=== PATIENT | female | born 1945 | race Caucasian/White ===

== ENCOUNTER 2016-08-09 15:28 | Inpatient (IN) | payer OTHER ==
--- NOTE | 2016-08-09 16:40 | PDOC ---
History of Present Illness - General History Source: Patient, Old Records Exam Limitations: No Limitations <Adela Kelley - Last Filed: 08/09/16 19:16> - History of Present Illness Initial Comments: 08/09/16 16:50 The patient is a 70 yo F with significant past medical history of hypertension, hyperlipidemia, diabetes, left breast CA who presents to the emergency department with cough and headache for approximately 1 week. The patient reports a non-productive cough. The patient reports associated chest pain when she coughs, however she has no pain at rest. The patient denies any nasal congestion. The patient reports a headache for the last week. The headache is constant in nature. She denies any associated dizziness or blurry vision. The patient denies any fevers or chills. The patient denies sick contacts. Mishel- daughter [phone] <Sujata Jones - Last Filed: 08/09/16 19:18> - General Chief Complaint: Chest Pain Stated Complaint: CHEST PAIN, HEADACHE Time Seen by Provider: 08/09/16 16:04 Past History - Past Medical History Cancer: Yes (LEFT BREAST) Diabetes: Yes HTN: Yes Hypercholesterolemia: Yes Suicide Attempt (Hx): No - Surgical History Abdominal Surgery: No - Immunization History Immunization Up to Date: Yes - Psycho/Social/Smoking Cessation Hx Anxiety: No Suicidal Ideation: No Smoking Status: No Smoking History: Never smoked Have you smoked in the past 12 months: No Number of Cigarettes Smoked Daily: 0 Hx Alcohol Use: No Drug/Substance Use Hx: No Substance Use Type: None Hx Substance Use Treatment: No <Adela Kelley - Last Filed: 08/09/16 19:16> <Sujata Jones - Last Filed: 08/09/16 19:18> - Past Medical History Allergies/Adverse Reactions: Allergies Allergy/AdvReac Type Severity Reaction Status Date / Time No Known Allergies Allergy Verified 08/09/16 15:36 Home Medications: Ambulatory Orders Gabapentin 300 mg PO BID 05/03/15 Fluticasone/Salmeterol [Advair 250-50 Diskus] 1 each IH BID 09/03/15 Glipizide/Metformin HCl [Metaglip 2.5-250 mg Tablet] 1 each PO BID 09/03/15 Memantine HCl [Namenda -] 7 mg PO DAILY 09/03/15 Simvastatin 40 mg PO DAILY 09/03/15 Acetaminophen [Tylenol .Regular Strength -] 650 mg PO Q6H PRN #0 tablet Albuterol 2.5/Ipratropium 0.5 [Duoneb -] 1 amp NEB Q4H PRN #0 amp 10/31/15 Albuterol Sulfate Inhaler - [Ventolin Hfa Inhaler -] 1 - 2 inh PO Q4H #1 inhaler 10/31/15 Budesonide/Formeterol Fumarate [SYMBICORT 160/4.5mcg -] 1 puff IH BID #1 inhaler 10/31/15 Prednisone [Deltasone -] 10 mg PO ASDIR #30 tablet 10/31/15 Ranitidine [Zantac -] 150 mg PO BID #60 tablet 10/31/15 Unobtainable 08/09/16 Review of Systems - Review of Systems Able to Perform ROS?: Yes Comments:: 08/09/16 16:50 GENERAL/CONSTITUTIONAL: No fever or chills. No weakness. HEAD, EYES, EARS, NOSE AND THROAT: No change in vision. No ear pain or discharge. No sore throat. CARDIOVASCULAR: +Chest pain. No shortness of breath. RESPIRATORY: +Cough. No wheezing, or hemoptysis. GASTROINTESTINAL: No nausea, vomiting, diarrhea or constipation. GENITOURINARY: No dysuria, frequency, or change in urination. MUSCULOSKELETAL: No joint or muscle swelling or pain. No neck or back pain. SKIN: No rash NEUROLOGIC: +Headache. No vertigo, loss of consciousness, or change in strength/ sensation. ENDOCRINE: No increased thirst. No abnormal weight change. HEMATOLOGIC/LYMPHATIC: No anemia, easy bleeding, or history of blood clots. ALLERGIC/IMMUNOLOGIC: No hives or skin allergy. <Sujata Jones - Last Filed: 08/09/16 19:18> *Physical Exam - Vital Signs Last Vital Signs Temp Pulse Resp BP Pulse Ox 98.5 F 81 20 130/70 93 L 08/09/16 15:30 08/09/16 15:30 08/09/16 15:30 08/09/16 15:30 08/09/16 15:30 <Adela Kelley - Last Filed: 08/09/16 19:16> - Vital Signs Last Vital Signs Temp Pulse Resp BP Pulse Ox 98.5 F 81 20 130/70 93 L 08/09/16 15:30 08/09/16 15:30 08/09/16 15:30 08/09/16 15:30 08/09/16 15:30 - Physical Exam Comments: 08/09/16 16:51 GENERAL: Awake, alert, and fully oriented, in no acute distress HEAD: No signs of trauma EYES: PERRLA, EOMI, sclera anicteric, conjunctiva clear ENT: Auricles normal inspection, hearing grossly normal, nares patent, oropharynx clear without exudates. Moist mucosa NECK: Normal ROM, supple, no lymphadenopathy, JVD, or masses LUNGS: +Bilateral crackles, left worse than right. HEART: Regular rate and rhythm, normal S1 and S2, no murmurs, rubs or gallops ABDOMEN: Soft, nontender, normoactive bowel sounds. No guarding, no rebound. No masses EXTREMITIES: Normal range of motion, no edema. No clubbing or cyanosis. No cords, erythema, or tenderness NEUROLOGICAL: Cranial nerves II through XII grossly intact. Normal speech, normal gait SKIN: Warm, Dry, normal turgor, no rashes or lesions noted. <Sujata Jones - Last Filed: 08/09/16 19:18> ED Treatment Course - LABORATORY CBC & Chemistry Diagram: 08/09/16 17:20 08/09/16 17:20 <Adela Kelley - Last Filed: 08/09/16 19:16> - LABORATORY CBC & Chemistry Diagram: 08/09/16 17:20 08/09/16 17:20 <Sujata Jones - Last Filed: 08/09/16 19:18> Medical Decision Making - Medical Decision Making 08/09/16 16:42 70-year-old female with history of diabetes, hypertension who presents the emergency Department with complaints of 1 week history of nonproductive cough and pleuritic chest pain. [facility] diagnosis includes but is not limited to: Influenza, pneumonia, URI, CHF, ACS, anemia, electrolyte abnormality, toxic/ metabolic derangement. Plan: 1. Labs 2. Influenza PCR 3. Chest x-ray 4. EKG 5. Observe and reevaluate <Adela Kelley - Last Filed: 08/09/16 19:16> *DC/Admit/Observation/Transfer - Discharge Dispostion Admit: Yes - Attestations Physician Attestion: 08/09/16 16:44 I, Dr. Adela Kelley, attest that the scribes documentation that appears above has been prepared under my direction and personally reviewed by me in its entirety. I confirmed that the note above accurately reflects all work, treatment, procedures, and medical decision-making performed by me. <Adela Kelley - Last Filed: 08/09/16 19:16> - Attestations Scribe Attestion: 08/09/16 16:51 Documentation prepared by Sujata Jones, acting as medical interpreter for Adela Kelley MD. <Sujata Jones - Last Filed: 08/09/16 19:18> Diagnosis at time of Disposition: Cough, Influenza A, Pneumonia - Discharge Dispostion Condition at time of disposition: Stable - Referrals Referrals: Ronit Erazo MD [Primary Care Provider] -
[2016-08-09 17:30] LABS: BASOPHIL 1.1 % (0-2.0); MCH 29.6 pg (25.7-33.7); MCHC 33.9 g/dl (32.0-36.0); MEAN CELL VOLUME 87.4 fl (80-96); NEUTROPHILS 63.1 % (42.8-82.8); PLATELET COUNT 201 K/MM3 (134-434); RDW 13.6 % (11.6-15.6); WHITE BLOOD COUNT 6.9 K/mm3 (4.0-10.0)
[2016-08-09 17:48] LABS: URINE APPEARANCE SLCLOUDY; URINE BILIRUBIN NEGATIVE (NEGATIVE); URINE COLOR YELLOW; URINE GLUCOSE (UA) NEGATIVE (NEGATIVE); URINE KETONE NEGATIVE (NEGATIVE); URINE LEUK ESTERASE NEGATIVE (NEGATIVE); URINE NITRITE NEGATIVE (NEGATIVE); URINE PROTEIN NEGATIVE (NEGATIVE); URINE UROBILINOGEN 4.0 E.U/dl E.U./dl (0.2-1.0)
[2016-08-09 17:58] LABS: URINE BLOOD 1+ (NEGATIVE)
[2016-08-09 18:07] LABS: URINE BACTERIA RARE /hpf (NONE SEEN); URINE MUCUS RARE; URINE RBC 2 /hpf (0-3); URINE WBC 1 /hpf (3-5)
[2016-08-09 18:23] LABS: CALCIUM 8.7 mg/dL (8.5-10.1); CREATININE 0.6 mg/dL (0.55-1.02)
[2016-08-09 18:25] LABS: TROPONIN I 0.07 ng/ml (0.00-0.05)
[2016-08-09 18:26] LABS: MAGNESIUM 2.1 mg/dL (1.8-2.4)
[2016-08-09] MEDS ORDERED: LEVOFLOXACIN 750 MG IVPB 150 ML IVPB ONE (18:30)
[2016-08-09] MEDS ORDERED: OSELTAMIVIR PHOSPHATE 75 MG CAPSULE PO ONE (18:54)
[2016-08-09] MEDS ORDERED: OSELTAMIVIR PHOSPHATE 75 MG CAPSULE ONE (19:31)
[2016-08-09] MEDS ORDERED: ACETAMINOPHEN 325 MG TABLET (FP) PO PRN (22:29)
[2016-08-10] MEDS: ALBUTEROL SO4 2.5/IPRATROPIUM 0.5 INH SOL 3 ML VIAL.NEB. NEB PRN (09:00)
[2016-08-10] MEDS: GABAPENTIN 300 MG CAPSULE (FP) PO SCH ×2 (09:22→21:21)
[2016-08-10] MEDS: OSELTAMIVIR PHOSPHATE 75 MG CAPSULE PO SCH ×2 (09:23→21:21)
[2016-08-10] MEDS: BUDESONIDE/FORMETEROL FUMARATE 160/4.5 mcg INHALER IH SCH ×2 (09:23→21:22)
[2016-08-10] MEDS ORDERED: ALBUTEROL SO4 2.5/IPRATROPIUM 0.5 INH SOL 3 ML VIAL.NEB. NEB ONE (09:24)
[2016-08-10] MEDS ORDERED: METFORMIN HCL PO SCH (10:00)
[2016-08-10] MEDS ORDERED: GLIPIZIDE PO SCH (10:00)
[2016-08-10] MEDS ORDERED: [UNRECOGNIZED DRUG - OTHER] PO SCH (10:00)
[2016-08-10] MEDS ORDERED: MEMANTINE HCL 5 MG TABLET (UD) PO SCH (10:00)
--- NOTE | 2016-08-10 10:02 | HP ---
Admitting History and Physical - Primary Care Physician PCP: Ronit Erazo - Admission Chief Complaint: cough, headache, shortness of breath History of Present Illness: ER history - History of Present Illness Initial Comments: 08/09/16 16:50 The patient is a 70 yo F with significant past medical history of hypertension, hyperlipidemia, diabetes, left breast CA who presents to the emergency department with cough and headache for approximately 1 week. The patient reports a non-productive cough. The patient reports associated chest pain when she coughs, however she has no pain at rest. The patient denies any nasal congestion. The patient reports a headache for the last week. The headache is constant in nature. She denies any associated dizziness or blurry vision. The patient denies any fevers or chills. The patient denies sick contacts. 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 No: Current Radiation Therapy Endocrine: Yes: Diabetes Mellitus, Hypothyroidism - Smoking History Smoking history: Never smoked Have you smoked in the past 12 months: No Aproximately how many cigarettes per day: 0 - Alcohol/Substance Use Hx Alcohol Use: No Home Medications - Allergies Allergies/Adverse Reactions: Allergies Allergy/AdvReac Type Severity Reaction Status Date / Time No Known Allergies Allergy Verified 08/09/16 15:36 - Home Medications Home Medications: Ambulatory Orders Glipizide/Metformin HCl [Metaglip 2.5-250 mg Tablet] 1 each PO BID 09/03/15 Memantine HCl [Namenda -] 7 mg PO DAILY 09/03/15 Acetaminophen [Tylenol .Regular Strength -] 650 mg PO Q6H PRN #0 tablet Amitriptyline HCl [Elavil -] 25 mg PO DAILY 08/10/16 Levothyroxine Sodium [Levo-T] 100 mcg PO DAILY 08/10/16 Memantine HCl [Namenda Xr] 14 mg PO DAILY 08/10/16 Review of Systems - Review of Systems Constitutional: reports: Fever. denies: Chills Cardiovascular: reports: Shortness of Breath. denies: Chest Pain Respiratory: reports: Cough Physical Examination Vital Signs: Vital Signs Temperature 99 F 08/10/16 07:44 Pulse Rate 80 08/10/16 07:44 Respiratory Rate 18 08/10/16 07:44 Blood Pressure 129/57 08/10/16 07:44 O2 Sat by Pulse Oximetry (%) 95 08/10/16 07:47 Constitutional: Yes: No Distress, Calm Cardiovascular: Yes: Regular Rate and Rhythm Respiratory: Yes: Rhonchi Gastrointestinal: Yes: Normal Bowel Sounds, Soft, Abdomen, Obese. No: Distention, Tenderness Edema: No Neurological: Yes: Alert, Oriented Psychiatric: Yes: Alert, Oriented Labs: Laboratory Last Values WBC 5.4 K/mm3 (4.0-10.0) 08/10/16 10:05 RBC 4.79 M/mm3 (3.60-5.2) 08/10/16 10:05 Hgb 14.1 GM/dL (10.7-15.3) 08/10/16 10:05 Hct 42.1 % (32.4-45.2) 08/10/16 10:05 MCV 87.9 fl (80-96) 08/10/16 10:05 MCHC 33.5 g/dl (32.0-36.0) 08/10/16 10:05 RDW 13.2 % (11.6-15.6) 08/10/16 10:05 Plt Count 183 K/MM3 (134-434) 08/10/16 10:05 MPV 8.7 fl (7.5-11.1) 08/10/16 10:05 Neutrophils % 56.0 % (42.8-82.8) 08/10/16 10:05 Lymphocytes % 22.2 % (8-40) D 08/10/16 10:05 Monocytes % 11.4 % (3.8-10.2) H 08/10/16 10:05 Eosinophils % 9.4 % (0-4.5) H 08/10/16 10:05 Basophils % 1.0 % (0-2.0) 08/10/16 10:05 Sodium 136 mmol/L (136-145) 08/10/16 10:05 Potassium 3.7 mmol/L (3.5-5.1) 08/10/16 10:05 Chloride 100 mmol/L (98-107) 08/10/16 10:05 Carbon Dioxide 28 mmol/L (21-32) 08/10/16 10:05 Anion Gap 8 (8-16) 08/10/16 10:05 BUN 8 mg/dL (7-18) 08/10/16 10:05 Creatinine 0.6 mg/dL (0.55-1.02) 08/10/16 10:05 Creat Clearance w eGFR > 60 (>60) 08/10/16 10:05 POC Glucometer 164.89628 UNITS (()) 08/10/16 11:56 Random Glucose 186 mg/dL (74-106) H D 08/10/16 10:05 Calcium 8.5 mg/dL (8.5-10.1) 08/10/16 10:05 Phosphorus 4.0 mg/dL (2.5-4.9) 08/09/16 17:20 Magnesium 2.1 mg/dL (1.8-2.4) 08/09/16 17:20 Total Bilirubin 0.8 mg/dL (0.2-1.0) D 08/10/16 10:05 AST 21 U/L (15-37) 08/10/16 10:05 ALT 20 U/L (12-78) D 08/10/16 10:05 Alkaline Phosphatase 84 U/L (45-117) 08/10/16 10:05 Creatine Kinase 193 IU/L (26-192) H 08/10/16 10:05 CK-MB (CK-2) 1.681 ng/ml (0.5-3.6) 08/09/16 17:20 Troponin I 0.08 ng/ml (0.00-0.05) H 08/10/16 10:05 B-Natriuretic Peptide 71.09 pg/ml (5-125) 08/09/16 17:32 Total Protein 7.3 g/dl (6.4-8.2) 08/10/16 10:05 Albumin 3.3 g/dl (3.4-5.0) L 08/10/16 10:05 Urine Color Yellow 08/09/16 17:20 Urine Appearance Slcloudy 08/09/16 17:20 Urine pH 5.0 (5.0-8.0) D 08/09/16 17:20 Ur Specific Solomon 1.020 (1.001-1.035) 08/09/16 17:20 Urine Protein Negative (NEGATIVE) 08/09/16 17:20 Urine Glucose (UA) Negative (NEGATIVE) 08/09/16 17:20 Urine Ketones Negative (NEGATIVE) 08/09/16 17:20 Urine Blood 1+ (NEGATIVE) H 08/09/16 17:20 Urine Nitrite Negative (NEGATIVE) 08/09/16 17:20 Urine Bilirubin Negative (NEGATIVE) 08/09/16 17:20 Urine Urobilinogen 4.0 e.u/dl E.U./dl (0.2-1.0) H 08/09/16 17:20 Ur Leukocyte Esterase Negative (NEGATIVE) 08/09/16 17:20 Urine RBC 2 /hpf (0-3) 08/09/16 17:20 Urine WBC 1 /hpf (3-5) 08/09/16 17:20 Ur Epithelial Cells Moderate /hpf (FEW) 08/09/16 17:20 Urine Bacteria Rare /hpf (NONE SEEN) 08/09/16 17:20 Urine Mucus Rare 08/09/16 17:20 Imaging - Results Chest X-ray: Pending (mild congestion), Image Reviewed Problem List - Problems (1) Influenza A Code(s): J10.1 - FLU DUE TO OTH IDENT INFLUENZA VIRUS W OTH RESP MANIFEST (2) COPD exacerbation Code(s): J44.1 - CHRONIC OBSTRUCTIVE PULMONARY DISEASE W (ACUTE) EXACERBATION (3) Diabetes Code(s): E11.9 - TYPE 2 DIABETES MELLITUS WITHOUT COMPLICATIONS Qualifiers: Diabetes mellitus type: type 2 Diabetes mellitus complication status: with neurologic complications Diabetes mellitus complication detail: with unspecified neuropathy Qualified Code(s): E11.40 - Type 2 diabetes mellitus with diabetic neuropathy, unspecified; 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
[2016-08-10 10:17] LABS: EOSINOPHIL 9.4 % (0-4.5); MCH 29.5 pg (25.7-33.7); MCHC 33.5 g/dl (32.0-36.0); MEAN CELL VOLUME 87.9 fl (80-96); MEAN PLT VOLUME 8.7 fl (7.5-11.1); PLATELET COUNT 183 K/MM3 (134-434); RDW 13.2 % (11.6-15.6); WHITE BLOOD COUNT 5.4 K/mm3 (4.0-10.0)
[2016-08-10] MEDS: PANTOPRAZOLE 40 MG TABLET (FP) PO SCH (10:35)
[2016-08-10 10:43] LABS: ALBUMIN 3.3 g/dl (3.4-5.0); ALK PHOS 84 U/L (45-117); ANION GAP 8 (8-16); BILIRUBIN,TOTAL 0.8 mg/dL (0.2-1.0); CALCIUM 8.5 mg/dL (8.5-10.1); CO2 28 mmol/L (21-32); CREATININE 0.6 mg/dL (0.55-1.02); GLUCOSE,RANDOM 186 mg/dL (74-106); SGOT/AST 21 U/L (15-37); SGPT/ALT 20 U/L (12-78); TOT PROT 7.3 g/dl (6.4-8.2)
[2016-08-10 10:45] LABS: TROPONIN I 0.08 ng/ml (0.00-0.05)
[2016-08-10] MEDS: methylPREDNISolone NA SUCC 40 MG/1 ML VIAL IVPB SCH ×2 (11:50→17:54)
[2016-08-10] MEDS: INSULIN (NOVOLOG) ASPART 100 UNITS/ML 10ML VIAL SQ SCH ×2 (11:55→17:48)
[2016-08-10] MEDS ORDERED: INSULIN REGULAR HUMAN 100 UNITS/ML *VIAL ONE (12:00)
[2016-08-10] MEDS: LEVOTHYROXINE NA 100 MCG TABLET (FP) PO SCH (13:43)
[2016-08-10 14:21] VITALS: BMI 30.4
--- NOTE | 2016-08-10 16:55 | EKG ---
Test Reason : Blood Pressure : / mmHG Vent. Rate : 077 BPM Atrial Rate : 077 BPM P-R Int : 144 ms QRS Dur : 110 ms QT Int : 386 ms P-R-T Axes : 033 -71 091 degrees QTc Int : 436 ms NORMAL SINUS RHYTHM LEFT ANTERIOR FASCICULAR BLOCK POSSIBLE LATERAL INFARCT (CITED ON OR BEFORE 27-OCT-2015) ABNORMAL ECG WHEN COMPARED WITH ECG OF 28-OCT-2015 01:21, RIGHT BUNDLE BRANCH BLOCK IS NO LONGER PRESENT CRITERIA FOR SEPTAL INFARCT ARE NO LONGER PRESENT Confirmed by KARTIK DUENAS MD ([id number]) on 08/10/2016 4:55:39 PM Referred By: Confirmed By:KARTIK DUENAS MD
--- NOTE | 2016-08-10 17:39 | CON.CARD ---
Consult Consult Specialty:: Cardiology Referred by:: Ronit Erazo MD Reason for Consultation:: Troponin elevation - History of Present Illness Chief Complaint: Dyspnea History of Present Illness: The patient is a 70 year old female with a past medical history of left breast cancer( in 1992 mastectomy w/ chemotherapy without radiation, negative for metastatic disease, OSAS (uses bipap at night), hypertension, hyperlipidemia, diabetes, diabetic neuropathy. hypothyroidism and diastolic dysfunction who presents to the emergency department with nonproductive cough, post-tussive chest discomfort, headache without associated sxs of dyspnea, near or true syncope, palptations, orthopnea, PND or LE edema. 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 defect) Cardio/Vascular: Yes: HTN, Hyperlipdemia Endocrine: Yes: Diabetes Mellitus, Hypothyroidism - Alcohol/Substance Use Hx Alcohol Use: No - Smoking History Smoking history: Never smoked Have you smoked in the past 12 months: No Aproximately how many cigarettes per day: 0 Home Medications - Allergies Allergies/Adverse Reactions: Allergies Allergy/AdvReac Type Severity Reaction Status Date / Time No Known Allergies Allergy Verified 08/09/16 15:36 - Home Medications Home Medications: Ambulatory Orders Glipizide/Metformin HCl [Metaglip 2.5-250 mg Tablet] 1 each PO BID 09/03/15 Memantine HCl [Namenda -] 7 mg PO DAILY 09/03/15 Acetaminophen [Tylenol .Regular Strength -] 650 mg PO Q6H PRN #0 tablet Amitriptyline HCl [Elavil -] 25 mg PO DAILY 08/10/16 Levothyroxine Sodium [Levo-T] 100 mcg PO DAILY 08/10/16 Memantine HCl [Namenda Xr] 14 mg PO DAILY 08/10/16 Vital Signs: Vital Signs Temperature 98.4 F 08/10/16 14:59 Pulse Rate 66 08/10/16 14:59 Respiratory Rate 18 08/10/16 14:59 Blood Pressure 131/68 08/10/16 14:59 O2 Sat by Pulse Oximetry (%) 94 L 08/10/16 14:12 - Other Data Labs, Other Data: CBC, BMP 08/10/16 10:05 08/10/16 10:05 Troponin, BNP 08/10/16 10:05 Troponin I 0.08 H Troponin, BNP 08/10/16 10:05 Troponin I 0.08 H NSR LAD Imaging - Results Chest X-ray: Report Reviewed (Increased interstitial infiltrates) Problem List - Problems (1) Influenza A Code(s): J10.1 - FLU DUE TO OTH IDENT INFLUENZA VIRUS W OTH RESP MANIFEST (2) COPD exacerbation Code(s): J44.1 - CHRONIC OBSTRUCTIVE PULMONARY DISEASE W (ACUTE) EXACERBATION (3) Diabetes Code(s): E11.9 - TYPE 2 DIABETES MELLITUS WITHOUT COMPLICATIONS Qualifiers: Diabetes mellitus type: type 2 Diabetes mellitus complication status: with neurologic complications Diabetes mellitus complication detail: with unspecified neuropathy (4) Hyperlipidemia associated with type 2 diabetes mellitus Code(s): E11.69 - TYPE 2 DIABETES MELLITUS WITH OTHER SPECIFIED COMPLICATION E78.5 - HYPERLIPIDEMIA, UNSPECIFIED (5) Hypothyroidism Code(s): E03.9 - HYPOTHYROIDISM, UNSPECIFIED (6) Reactive airway disease Code(s): J45.909 - UNSPECIFIED ASTHMA, UNCOMPLICATED Qualifiers: Asthma severity: mild intermittent (7) Subendocardial ischemia Code(s): I24.8 - OTHER FORMS OF ACUTE ISCHEMIC HEART DISEASE (8) Hypertension Code(s): I10 - ESSENTIAL (PRIMARY) HYPERTENSION Qualifiers: Hypertension type: essential hypertension Qualified Code(s): I10 - Essential (primary) hypertension Assessment/Plan 1. AE COPD, acute bronchitis, Influenza A 2. Subendocardial ischemia 3. HTN 4. DM 5. Hypercholesterolemia 6. Diabetic neuropathy 7. Hypothyroidism PLAN: 1. Resume carvedilol 3.125 bid and altace 2.5 qd with uptitration as tolerated 2. Continue Lipitor 20 qhs, ASA 81 qd 3. Trend cardiac enzymes to confirm peak, f/u echocardiogram 4. BD, O2, steroids, empirix abx course, tamiflu, bipap as needed, GI and DVT prophylaxis 5. Additional cardiovascular evaluation can be performed as outpatient including MPI study for risk stratification 6. Thank you for consultative opportunity
[2016-08-10] MEDS: metFORMIN HCL 500 MG TABLET (FP) PO SCH (17:50)
[2016-08-10] MEDS: LEVOFLOXACIN 500 MG IVPB 100 ML IVPB SCH (17:53)
[2016-08-10 18:46] LABS: TROPONIN I 0.09 ng/ml (0.00-0.05)
[2016-08-10] MEDS: ATORVASTATIN CA 20 MG TABLET (FP) PO SCH (21:20)
[2016-08-10] MEDS: CARVEDILOL 3.125 MG TABLET (FP) PO SCH (21:21)
[2016-08-10] MEDS: guaiFENesin 200 MG/10 ML 10 ML UNIT-DOSE CUPS PO PRN (21:21)
[2016-08-11] MEDS: methylPREDNISolone NA SUCC 40 MG/1 ML VIAL IVPB SCH ×3 (01:12→21:26)
[2016-08-11] MEDS: LEVOTHYROXINE NA 100 MCG TABLET (FP) PO SCH (06:16)
[2016-08-11] MEDS: INSULIN (NOVOLOG) ASPART 100 UNITS/ML 10ML VIAL SQ SCH ×3 (06:16→17:48)
[2016-08-11] MEDS: guaiFENesin 200 MG/10 ML 10 ML UNIT-DOSE CUPS PO PRN ×2 (06:16→10:25)
[2016-08-11] MEDS: metFORMIN HCL 500 MG TABLET (FP) PO SCH ×2 (06:16→17:47)
--- NOTE | 2016-08-11 09:51 | PN ---
Progress Note (short form) - Note Progress Note: SUBJECTIVE: Patient seen and examined. Feels better. Decreased shortness of breath. Cough present. Afebrile. Chart reviewed. OBJECTIVE: Vital Signs - 8 hr 08/11/16 06:00 Temperature 97.5 F L Pulse Rate 58 L Respiratory 20 Rate Blood Pressure 115/57 Intake & Output 08/10/16 08/11/16 08/11/16 23:59 07:59 15:59 Intake Total 130 Balance 130 Intake: IV 10 rh 22 08/09/2016 10 Oral 120 Other: Voiding Method Toilet # Unmeasured Voids Void 2 Active Medications Acetaminophen (Tylenol -) 650 mg PO Q6H PRN PRN Reason: FEVER OR PAIN Last Admin: 08/10/16 21:21 Dose: 650 mg Albuterol/Ipratropium (Duoneb -) 1 amp NEB Q4H PRN PRN Reason: SHORTNESS OF BREATH Last Admin: 08/10/16 09:00 Dose: 1 amp Atorvastatin Calcium (Lipitor -) 20 mg PO HS [facility] Last Admin: 08/10/16 21:20 Dose: 20 mg Budesonide/Formoterol Fumarate (Symbicort 160/4.5mcg -) 1 puff IH BID [facility] Last Admin: 08/10/16 21:22 Dose: 1 puff Carvedilol (Coreg -) 3.125 mg PO BID [facility] Last Admin: 08/10/16 21:21 Dose: 3.125 mg Enoxaparin Sodium (Lovenox -) 40 mg SQ DAILY [facility] Gabapentin (Neurontin -) 300 mg PO BID [facility] Last Admin: 08/10/16 21:21 Dose: 300 mg Guaifenesin (Robitussin -) 10 ml PO Q8H PRN PRN Reason: COUGH Last Admin: 08/11/16 06:16 Dose: 10 ml Levofloxacin (Levaquin 500 Mg Premixed Ivpb -) 100 mls @ 100 mls/hr IVPB DAILY [facility] Last Admin: 08/10/16 17:53 Dose: 100 mls/hr Insulin Aspart (Novolog Vial) 0 units SQ TIDAC [facility] PRN Reason: Protocol Last Admin: 08/11/16 06:16 Dose: 2 units Levothyroxine Sodium (Synthroid -) 100 mcg PO DAILY@0700 [facility] Last Admin: 01/20/17 06:16 Dose: 100 mcg Memantine (Namenda -) 7 mg PO DAILY [facility] Metformin HCl (Glucophage -) 500 mg PO BID@0700,1630 [facility] Last Admin: 08/11/16 06:16 Dose: 500 mg Methylprednisolone Sodium Succinate (Solu-Medrol -) 40 mg IVPB Q8H-IV [facility] Last Admin: 08/11/16 01:12 Dose: 40 mg Non-Formulary Medication (Glipizide/Metformin Hcl [Metaglip 2.5-250 Mg Tablet]) 1 each PO BID [facility] Oseltamivir Phosphate (Tamiflu -) 75 mg PO BID [facility] Last Admin: 08/10/16 21:21 Dose: 75 mg Pantoprazole Sodium (Protonix -) 40 mg PO DAILY [facility] Last Admin: 08/10/16 10:35 Dose: 40 mg Ramipril (Altace -) 2.5 mg PO DAILY [facility] CBC, BMP 08/10/16 10:05 08/10/16 10:05 Laboratory Results - last 24 hr 08/10/16 08/10/16 08/10/16 10:05 10:05 11:56 WBC 5.4 RBC 4.79 Hgb 14.1 Hct 42.1 MCV 87.9 MCHC 33.5 RDW 13.2 Plt Count 183 MPV 8.7 Neutrophils % 56.0 Lymphocytes % 22.2 D Monocytes % 11.4 H Eosinophils % 9.4 H Basophils % 1.0 Sodium 136 Potassium 3.7 Chloride 100 Carbon Dioxide 28 Anion Gap 8 BUN 8 Creatinine 0.6 Creat Clearance w eGFR > 60 POC Glucometer 164.68368 Random Glucose 186 H D Calcium 8.5 Total Bilirubin 0.8 D AST 21 ALT 20 D Alkaline Phosphatase 84 Creatine Kinase 193 H Troponin I 0.08 H Total Protein 7.3 Albumin 3.3 L 08/10/16 08/10/16 08/11/16 17:15 17:47 05:30 WBC RBC Hgb Hct MCV MCHC RDW Plt Count MPV Neutrophils % Lymphocytes % Monocytes % Eosinophils % Basophils % Sodium Potassium Chloride Carbon Dioxide Anion Gap BUN Creatinine Creat Clearance w eGFR POC Glucometer 242 199 Random Glucose Calcium Total Bilirubin AST ALT Alkaline Phosphatase Creatine Kinase 203 H Troponin I 0.09 H Total Protein Albumin 08/11/16 05:38 WBC RBC Hgb Hct MCV MCHC RDW Plt Count MPV Neutrophils % Lymphocytes % Monocytes % Eosinophils % Basophils % Sodium Potassium Chloride Carbon Dioxide Anion Gap BUN Creatinine Creat Clearance w eGFR POC Glucometer Random Glucose Calcium Total Bilirubin AST ALT Alkaline Phosphatase Creatine Kinase Troponin I 0.07 H Total Protein Albumin Microbiology 08/09/16 19:20 Blood Culture - Preliminary Blood - Peripheral Venous NO GROWTH OBTAINED AFTER 24 HOURS, INCUBATION TO CONTINUE FOR 4 DAYS. 08/09/16 19:20 Blood Culture - Preliminary Blood - Peripheral Venous NO GROWTH OBTAINED AFTER 24 HOURS, INCUBATION TO CONTINUE FOR 4 DAYS. PHYSICAL EXAMINATION: Constitutional: Yes: No Distress, Calm Cardiovascular: Yes: Regular Rate and Rhythm Respiratory: Yes: Rhonchi Gastrointestinal: Yes: Normal Bowel Sounds, Soft, Abdomen, Obese. No: Distention, Tenderness Edema: No Neurological: Yes: Alert, Oriented Psychiatric: Yes: Alert, Oriented ASSESSMENT & PLAN: Clincally netter. - Continue Tamiflu. Nebulizer treatment. Short course Solu-Medrol- Taper. Cardiology evaluation noted. Echocardiogram pending. - Droplet isolation. - Lovenox for DVT prophylaxis. - Anticipate discharge in 1-2 days if she continues to improve. Problem List - Problems (1) Influenza A Code(s): J10.1 - FLU DUE TO OTH IDENT INFLUENZA VIRUS W OTH RESP MANIFEST (2) COPD exacerbation Code(s): J44.1 - CHRONIC OBSTRUCTIVE PULMONARY DISEASE W (ACUTE) EXACERBATION (3) Diabetes Code(s): E11.9 - TYPE 2 DIABETES MELLITUS WITHOUT COMPLICATIONS Qualifiers: Diabetes mellitus type: type 2 Diabetes mellitus complication status: with neurologic complications Diabetes mellitus complication detail: with unspecified neuropathy Qualified Code(s): E11.40 - Type 2 diabetes mellitus with diabetic neuropathy, unspecified; Z79.4 - penitentiary (current) use of insulin Documentation prepared by Esha Wyatt, acting as a medical esthetician for Veronica Carroll MD.
[2016-08-11] MEDS: ENOXAPARIN NA (PORCINE) 40 MG/0.4 ML DISP.SYRIN SQ SCH (10:25)
[2016-08-11] MEDS: RAMIPRIL 2.5 MG CAPSULE (FP) PO SCH (10:26)
[2016-08-11] MEDS: BUDESONIDE/FORMETEROL FUMARATE 160/4.5 mcg INHALER IH SCH ×2 (10:26→21:25)
[2016-08-11] MEDS: OSELTAMIVIR PHOSPHATE 75 MG CAPSULE PO SCH ×2 (10:26→21:27)
[2016-08-11] MEDS: CARVEDILOL 3.125 MG TABLET (FP) PO SCH ×2 (10:26→21:27)
[2016-08-11] MEDS: PANTOPRAZOLE 40 MG TABLET (FP) PO SCH (10:26)
[2016-08-11] MEDS: GABAPENTIN 300 MG CAPSULE (FP) PO SCH ×2 (10:29→21:27)
[2016-08-11] MEDS: LEVOFLOXACIN 500 MG IVPB 100 ML IVPB SCH (10:32)
--- NOTE | 2016-08-11 11:39 | PN ---
Progress Note, Physician History of Present Illness: Nonproductive cough, post-tussive chest discomfort, headache improvong, denies dyspnea, near or true syncope, palptations, orthopnea, PND or LE edema. - Current Medication List Current Medications: Active Medications Acetaminophen (Tylenol -) 650 mg PO Q6H PRN PRN Reason: FEVER OR PAIN Last Admin: 08/10/16 21:21 Dose: 650 mg Albuterol/Ipratropium (Duoneb -) 1 amp NEB Q4H PRN PRN Reason: SHORTNESS OF BREATH Last Admin: 08/10/16 09:00 Dose: 1 amp Atorvastatin Calcium (Lipitor -) 20 mg PO HS [facility] Last Admin: 08/10/16 21:20 Dose: 20 mg Budesonide/Formoterol Fumarate (Symbicort 160/4.5mcg -) 1 puff IH BID [facility] Last Admin: 08/11/16 10:26 Dose: 1 puff Carvedilol (Coreg -) 3.125 mg PO BID [facility] Last Admin: 08/11/16 10:26 Dose: 3.125 mg Enoxaparin Sodium (Lovenox -) 40 mg SQ DAILY [facility] Last Admin: 08/11/16 10:25 Dose: 40 mg Gabapentin (Neurontin -) 300 mg PO BID [facility] Last Admin: 08/11/16 10:29 Dose: 300 mg Guaifenesin (Robitussin -) 10 ml PO Q8H PRN PRN Reason: COUGH Last Admin: 08/11/16 10:25 Dose: 10 ml Levofloxacin (Levaquin 500 Mg Premixed Ivpb -) 100 mls @ 100 mls/hr IVPB DAILY [facility] Last Admin: 08/11/16 10:32 Dose: 100 mls/hr Insulin Aspart (Novolog Vial) 0 units SQ TIDAC [facility] PRN Reason: Protocol Last Admin: 08/11/16 06:16 Dose: 2 units Levothyroxine Sodium (Synthroid -) 100 mcg PO DAILY@0700 [facility] Last Admin: 08/11/16 06:16 Dose: 100 mcg Memantine (Namenda -) 7 mg PO DAILY [facility] Metformin HCl (Glucophage -) 500 mg PO BID@0700,1630 [facility] Last Admin: 08/11/16 06:16 Dose: 500 mg Methylprednisolone Sodium Succinate (Solu-Medrol -) 40 mg IVPB BID [facility] Last Admin: 08/11/16 10:32 Dose: 40 mg Non-Formulary Medication (Glipizide/Metformin Hcl [Metaglip 2.5-250 Mg Tablet]) 1 each PO BID [facility] Oseltamivir Phosphate (Tamiflu -) 75 mg PO BID [facility] Last Admin: 08/11/16 10:26 Dose: 75 mg Pantoprazole Sodium (Protonix -) 40 mg PO DAILY [facility] Last Admin: 08/11/16 10:26 Dose: 40 mg Ramipril (Altace -) 2.5 mg PO DAILY [facility] Last Admin: 08/11/16 10:26 Dose: 2.5 mg - Objective Vital Signs: Vital Signs Temperature 98.2 F 08/11/16 10:41 Pulse Rate 80 08/11/16 10:41 Respiratory Rate 20 08/11/16 10:41 Blood Pressure 107/58 08/11/16 10:41 O2 Sat by Pulse Oximetry (%) 98 08/10/16 21:00 Constitutional: Yes: No Distress, Calm Neck: Yes: Supple Cardiovascular: Yes: Regular Rate and Rhythm Respiratory: Yes: Regular, Diminished, On Nasal O2 Gastrointestinal: Yes: Normal Bowel Sounds, Soft Edema: No Problem List - Problems (1) Influenza A Code(s): J10.1 - FLU DUE TO OTH IDENT INFLUENZA VIRUS W OTH RESP MANIFEST (2) COPD exacerbation Code(s): J44.1 - CHRONIC OBSTRUCTIVE PULMONARY DISEASE W (ACUTE) EXACERBATION (3) Diabetes Code(s): E11.9 - TYPE 2 DIABETES MELLITUS WITHOUT COMPLICATIONS Qualifiers: Diabetes mellitus type: type 2 Diabetes mellitus complication status: with neurologic complications Diabetes mellitus complication detail: with unspecified neuropathy (4) Hyperlipidemia associated with type 2 diabetes mellitus Code(s): E11.69 - TYPE 2 DIABETES MELLITUS WITH OTHER SPECIFIED COMPLICATION E78.5 - HYPERLIPIDEMIA, UNSPECIFIED (5) Hypothyroidism Code(s): E03.9 - HYPOTHYROIDISM, UNSPECIFIED (6) Reactive airway disease Code(s): J45.909 - UNSPECIFIED ASTHMA, UNCOMPLICATED Qualifiers: Asthma severity: mild intermittent (7) Subendocardial ischemia Code(s): I24.8 - OTHER FORMS OF ACUTE ISCHEMIC HEART DISEASE (8) Hypertension Code(s): I10 - ESSENTIAL (PRIMARY) HYPERTENSION Qualifiers: Hypertension type: essential hypertension Qualified Code(s): I10 - Essential (primary) hypertension Assessment/Plan 1. AE COPD, acute bronchitis, Influenza A 2. Subendocardial ischemia 3. HTN 4. DM 5. Hypercholesterolemia 6. Diabetic neuropathy 7. Hypothyroidism PLAN: 1. Continue carvedilol 3.125 bid and altace 2.5 qd with uptitration as tolerated 2. Continue Lipitor 20 qhs, ASA 81 qd 3. Cardiac enzymes have peaked, f/u echocardiogram 4. BD, O2, IV steroids taper, empiric abx course, tamiflu, antitussive, bipap as needed, GI and DVT prophylaxis 5. Additional cardiovascular evaluation can be performed as outpatient including MPI study for risk stratification
[2016-08-11] MEDS ORDERED: PT OWN MED DRAWER 7, Y5N ONE (21:24)
[2016-08-11] MEDS: ATORVASTATIN CA 20 MG TABLET (FP) PO SCH (21:26)
[2016-08-11] MEDS: MEMANTINE HCL 5 MG TABLET (UD) PO SCH (21:26)
[2016-08-11] MEDS ORDERED: INSULIN (NOVOLOG) ASPART 100 UNITS/ML 10ML VIAL ONE (22:50)
[2016-08-12] MEDS ORDERED: INSULIN (NOVOLOG) ASPART 100 UNITS/ML 10ML VIAL ONE ×2 (06:13→17:49)
[2016-08-12] MEDS: LEVOTHYROXINE NA 100 MCG TABLET (FP) PO SCH (06:17)
[2016-08-12] MEDS: metFORMIN HCL 500 MG TABLET (FP) PO SCH ×2 (06:17→17:50)
[2016-08-12] MEDS: INSULIN (NOVOLOG) ASPART 100 UNITS/ML 10ML VIAL SQ SCH ×3 (06:19→17:50)
--- NOTE | 2016-08-12 09:46 | PN ---
Progress Note (short form) - Note Progress Note: pt feels better but still coughing. denies pain. afebrile Vital Signs Temp 97.9 F 08/12/16 06:00 Pulse 56 L 08/12/16 06:00 Resp 20 08/12/16 06:00 BP 109/59 08/12/16 06:00 Pulse Ox 98 08/11/16 21:00 Intake & Output 08/11/16 08/11/16 08/12/16 11:59 23:59 11:59 Other: Voiding Method Toilet Toilet # Unmeasured Voids Void 1 Active Medications Acetaminophen (Tylenol -) 650 mg PO Q6H PRN PRN Reason: FEVER OR PAIN Last Admin: 08/10/16 21:21 Dose: 650 mg Albuterol/Ipratropium (Duoneb -) 1 amp NEB Q4H PRN PRN Reason: SHORTNESS OF BREATH Last Admin: 08/10/16 09:00 Dose: 1 amp Atorvastatin Calcium (Lipitor -) 20 mg PO HS [facility] Last Admin: 08/11/16 21:26 Dose: 20 mg Budesonide/Formoterol Fumarate (Symbicort 160/4.5mcg -) 1 puff IH BID [facility] Last Admin: 08/11/16 21:25 Dose: 1 puff Carvedilol (Coreg -) 3.125 mg PO BID [facility] Last Admin: 08/11/16 21:27 Dose: 3.125 mg Enoxaparin Sodium (Lovenox -) 40 mg SQ DAILY [facility] Last Admin: 08/11/16 10:25 Dose: 40 mg Gabapentin (Neurontin -) 300 mg PO BID [facility] Last Admin: 08/11/16 21:27 Dose: 300 mg Guaifenesin (Robitussin -) 10 ml PO Q8H PRN PRN Reason: COUGH Last Admin: 08/11/16 10:25 Dose: 10 ml Levofloxacin (Levaquin 500 Mg Premixed Ivpb -) 100 mls @ 100 mls/hr IVPB DAILY [facility] Last Admin: 08/11/16 10:32 Dose: 100 mls/hr Insulin Aspart (Novolog Vial) 0 units SQ TIDAC [facility] PRN Reason: Protocol Last Admin: 08/12/16 06:19 Dose: 6 units Levothyroxine Sodium (Synthroid -) 100 mcg PO DAILY@0700 [facility] Last Admin: 08/12/16 06:17 Dose: 100 mcg Memantine (Namenda -) 5 mg PO BID [facility] Last Admin: 08/11/16 21:26 Dose: 5 mg Metformin HCl (Glucophage -) 500 mg PO BID@0700,1630 [facility] Last Admin: 08/12/16 06:17 Dose: 500 mg Methylprednisolone Sodium Succinate (Solu-Medrol -) 40 mg IVPB BID [facility] Last Admin: 08/11/16 21:26 Dose: 40 mg Oseltamivir Phosphate (Tamiflu -) 75 mg PO BID [facility] Last Admin: 08/11/16 21:27 Dose: 75 mg Pantoprazole Sodium (Protonix -) 40 mg PO DAILY [facility] Last Admin: 08/11/16 10:26 Dose: 40 mg Ramipril (Altace -) 2.5 mg PO DAILY [facility] Last Admin: 08/11/16 10:26 Dose: 2.5 mg CBC, BMP 08/10/16 10:05 08/10/16 10:05 PHYSICAL EXAMINATION: Constitutional: Yes: No Distress, Calm/ sitting in chair . Cardiovascular: Yes: Regular Rate and Rhythm Respiratory: Yes: Bilateral scattered rhonchi . Gastrointestinal: Yes: Normal Bowel Sounds, Soft, Abdomen, Obese. No: Distention, Tenderness Edema: No Neurological: Yes: Alert, Oriented Psychiatric: Yes: Alert, Oriented ASSESSMENT & PLAN: overall better. _ still coughing. - Continue Tamiflu. Nebulizer treatment. Short course Solu-Medrol- continue same dose today. - Droplet isolation. - Lovenox for DVT prophylaxis. - will not discharge today as today / still coughing . Problem List - Problems (1) Influenza A Code(s): J10.1 - FLU DUE TO OTHER INFLUENZA VIRUS W OTH RESP MANIFEST (2) COPD exacerbation Code(s): J44.1 - CHRONIC OBSTRUCTIVE PULMONARY DISEASE W (ACUTE) EXACERBATION (3) Diabetes Code(s): E11.9 - TYPE 2 DIABETES MELLITUS WITHOUT COMPLICATIONS Qualifiers: Diabetes mellitus type: type 2 Diabetes mellitus complication status: with neurologic complications Diabetes mellitus complication detail: with unspecified neuropathy Qualified Code(s): E11.40 - Type 2 diabetes mellitus with diabetic neuropathy, unspecified; Z79.4 - [facility] ([facility] use of [facility]
[2016-08-12] MEDS ORDERED: PT OWN MED DRAWER 7, Y5N ONE ×2 (11:08→21:25)
[2016-08-12] MEDS: RAMIPRIL 2.5 MG CAPSULE (FP) PO SCH (11:12)
[2016-08-12] MEDS: MEMANTINE HCL 5 MG TABLET (UD) PO SCH ×2 (11:13→21:38)
[2016-08-12] MEDS: OSELTAMIVIR PHOSPHATE 75 MG CAPSULE PO SCH ×2 (11:13→21:38)
[2016-08-12] MEDS: CARVEDILOL 3.125 MG TABLET (FP) PO SCH ×2 (11:13→21:38)
[2016-08-12] MEDS: BUDESONIDE/FORMETEROL FUMARATE 160/4.5 mcg INHALER IH SCH ×2 (11:13→21:38)
[2016-08-12] MEDS: methylPREDNISolone NA SUCC 40 MG/1 ML VIAL IVPB SCH ×2 (11:13→21:39)
[2016-08-12] MEDS: PANTOPRAZOLE 40 MG TABLET (FP) PO SCH (11:13)
[2016-08-12] MEDS: GABAPENTIN 300 MG CAPSULE (FP) PO SCH ×2 (11:13→21:38)
[2016-08-12] MEDS: ENOXAPARIN NA (PORCINE) 40 MG/0.4 ML DISP.SYRIN SQ SCH (11:14)
[2016-08-12] MEDS: LEVOFLOXACIN 500 MG IVPB 100 ML IVPB SCH (11:14)
--- NOTE | 2016-08-12 11:27 | PN ---
Progress Note, Physician Chief Complaint: Events noted Intermittent cough with congestion Feels better History of Present Illness: Patient was seen and examined. Awake and alert. Chart was reviewed Intermittent cough with chest discomfort. Less SOB and states she feels better - Current Medication List Current Medications: Active Medications Acetaminophen (Tylenol -) 650 mg PO Q6H PRN PRN Reason: FEVER OR PAIN Last Admin: 08/10/16 21:21 Dose: 650 mg Albuterol/Ipratropium (Duoneb -) 1 amp NEB Q4H PRN PRN Reason: SHORTNESS OF BREATH Last Admin: 08/10/16 09:00 Dose: 1 amp Atorvastatin Calcium (Lipitor -) 20 mg PO HS [facility] Last Admin: 08/11/16 21:26 Dose: 20 mg Budesonide/Formoterol Fumarate (Symbicort 160/4.5mcg -) 1 puff IH BID [facility] Last Admin: 08/12/16 11:13 Dose: 1 puff Carvedilol (Coreg -) 3.125 mg PO BID [facility] Last Admin: 08/12/16 11:13 Dose: 3.125 mg Enoxaparin Sodium (Lovenox -) 40 mg SQ DAILY [facility] Last Admin: 08/12/16 11:14 Dose: 40 mg Gabapentin (Neurontin -) 300 mg PO BID [facility] Last Admin: 08/12/16 11:13 Dose: 300 mg Guaifenesin (Robitussin -) 10 ml PO Q8H PRN PRN Reason: COUGH Last Admin: 08/11/16 10:25 Dose: 10 ml Levofloxacin (Levaquin 500 Mg Premixed Ivpb -) 100 mls @ 100 mls/hr IVPB DAILY [facility] Last Admin: 08/12/16 11:14 Dose: 100 mls/hr Insulin Aspart (Novolog Vial) 0 units SQ TIDAC [facility] PRN Reason: Protocol Last Admin: 08/12/16 06:19 Dose: 6 units Levothyroxine Sodium (Synthroid -) 100 mcg PO DAILY@0700 [facility] Last Admin: 08/12/16 06:17 Dose: 100 mcg Memantine (Namenda -) 5 mg PO BID [facility] Last Admin: 08/12/16 11:13 Dose: 5 mg Metformin HCl (Glucophage -) 500 mg PO BID@0700,1630 [facility] Last Admin: 01/21/17 06:17 Dose: 500 mg Methylprednisolone Sodium Succinate (Solu-Medrol -) 40 mg IVPB BID [facility] Last Admin: 08/12/16 11:13 Dose: 40 mg Oseltamivir Phosphate (Tamiflu -) 75 mg PO BID [facility] Last Admin: 08/12/16 11:13 Dose: 75 mg Pantoprazole Sodium (Protonix -) 40 mg PO DAILY [facility] Last Admin: 08/12/16 11:13 Dose: 40 mg Ramipril (Altace -) 2.5 mg PO DAILY [facility] Last Admin: 08/12/16 11:12 Dose: 2.5 mg - Objective Vital Signs: Vital Signs Temperature 97.9 F 08/12/16 06:00 Pulse Rate 56 L 08/12/16 06:00 Respiratory Rate 20 08/12/16 06:00 Blood Pressure 109/59 08/12/16 06:00 O2 Sat by Pulse Oximetry (%) 98 08/11/16 21:00 Neck: Yes: Supple Cardiovascular: Yes: Regular Rate and Rhythm, S1, S2 Respiratory: Yes: Diminished Gastrointestinal: Yes: Normal Bowel Sounds, Soft. No: Tenderness Edema: No Additional Findings/Remarks: eview of Systems Cardiovascular: As noted above Respiratory: denies: reports: Cough Gastrointestinal: denies: Nausea, Vomiting, Diarrhea, Constipation or Abdominal Discomfort Musculoskeletal: No Symptoms Reported Endocrine: No Symptoms Reported Problem List - Problems (1) Hypertension Code(s): I10 - ESSENTIAL (PRIMARY) HYPERTENSION Qualifiers: Hypertension type: essential hypertension Qualified Code(s): I10 - Essential (primary) hypertension (2) Influenza A Code(s): J10.1 - FLU DUE TO OTH IDENT INFLUENZA VIRUS W OTH RESP MANIFEST (3) Subendocardial ischemia Code(s): I24.8 - OTHER FORMS OF ACUTE ISCHEMIC HEART DISEASE (4) COPD exacerbation Code(s): J44.1 - CHRONIC OBSTRUCTIVE PULMONARY DISEASE W (ACUTE) EXACERBATION (5) Chest discomfort Code(s): R07.89 - OTHER CHEST PAIN (6) Diabetes Code(s): E11.9 - TYPE 2 DIABETES MELLITUS WITHOUT COMPLICATIONS Qualifiers: Diabetes mellitus type: type 2 Diabetes mellitus complication status: without complication Diabetes mellitus intermediate insulin use: without superintendent container terminal use Qualified Code(s): E11.9 - Type 2 diabetes mellitus without complications (7) Hyperlipidemia associated with type 2 diabetes mellitus Code(s): E11.69 - TYPE 2 DIABETES MELLITUS WITH OTHER SPECIFIED COMPLICATION E78.5 - HYPERLIPIDEMIA, UNSPECIFIED (8) Hypothyroidism Code(s): E03.9 - HYPOTHYROIDISM, UNSPECIFIED Qualifiers: Hypothyroidism type: unspecified Qualified Code(s): E03.9 - Hypothyroidism, unspecified Assessment/Plan 1. Acute exacerbation of COPD, acute bronchitis, Influenza A 2. Subendocardial myocardial ischemia 3. HTN 4. DM 5. Hypercholesterolemia 6. Diabetic neuropathy 7. Hypothyroidism PLAN: 1. Continue Carvedilol 3.125 mg BID and Altace 2.5 mg QD with uptitration as tolerated 2. Continue Lipitor 20 mg QHS and ASA 81 mg QD 3. Trend cardiac enzymes - coming down. Transthoracic echocardiography reveals normal left ventricular systolic function with mild MR, [place], [place], [place] 4. Bronchodilators, O2, steroids, empiric antibiotics course, Tamiflu, BIPAP as needed and GI and DVT prophylaxis 5. Additional cardiovascular evaluation can be performed as outpatient including nuclear myocardial perfusion imaging study for risk stratification Further plans are to follow Jackson Purvis MD
[2016-08-12] MEDS: guaiFENesin 200 MG/10 ML 10 ML UNIT-DOSE CUPS PO PRN (15:42)
[2016-08-12] MEDS: ALBUTEROL SO4 2.5/IPRATROPIUM 0.5 INH SOL 3 ML VIAL.NEB. NEB PRN (16:14)
[2016-08-12] MEDS: ATORVASTATIN CA 20 MG TABLET (FP) PO SCH (21:37)
[2016-08-13] MEDS ORDERED: INSULIN (NOVOLOG) ASPART 100 UNITS/ML 10ML VIAL ONE ×3 (06:05→18:10)
[2016-08-13] MEDS: metFORMIN HCL 500 MG TABLET (FP) PO SCH ×2 (06:09→17:23)
[2016-08-13] MEDS: LEVOTHYROXINE NA 100 MCG TABLET (FP) PO SCH (06:09)
[2016-08-13] MEDS: guaiFENesin 200 MG/10 ML 10 ML UNIT-DOSE CUPS PO PRN (06:10)
[2016-08-13] MEDS: INSULIN (NOVOLOG) ASPART 100 UNITS/ML 10ML VIAL SQ SCH ×3 (06:11→17:22)
--- NOTE | 2016-08-13 10:00 | PN ---
Progress Note, Physician Chief Complaint: Events noted Intermittent cough with congestion Feels better History of Present Illness: Patient was seen and examined. Awake and alert. Chart was reviewed Intermittent cough with chest discomfort. Less SOB and appears comfortable - Current Medication List Current Medications: Active Medications Acetaminophen (Tylenol -) 650 mg PO Q6H PRN PRN Reason: FEVER OR PAIN Last Admin: 08/10/16 21:21 Dose: 650 mg Albuterol/Ipratropium (Duoneb -) 1 amp NEB Q4H PRN PRN Reason: SHORTNESS OF BREATH Last Admin: 08/12/16 16:14 Dose: 1 amp Atorvastatin Calcium (Lipitor -) 20 mg PO HS [facility] Last Admin: 08/12/16 21:37 Dose: 20 mg Budesonide/Formoterol Fumarate (Symbicort 160/4.5mcg -) 1 puff IH BID [facility] Last Admin: 08/12/16 21:38 Dose: 1 puff Carvedilol (Coreg -) 3.125 mg PO BID [facility] Last Admin: 08/12/16 21:38 Dose: 3.125 mg Enoxaparin Sodium (Lovenox -) 40 mg SQ DAILY [facility] Last Admin: 08/12/16 11:14 Dose: 40 mg Gabapentin (Neurontin -) 300 mg PO BID [facility] Last Admin: 08/12/16 21:38 Dose: 300 mg Guaifenesin (Robitussin -) 10 ml PO Q8H PRN PRN Reason: COUGH Last Admin: 08/13/16 06:10 Dose: 10 ml Levofloxacin (Levaquin 500 Mg Premixed Ivpb -) 100 mls @ 100 mls/hr IVPB DAILY [facility] Last Admin: 08/12/16 11:14 Dose: 100 mls/hr Insulin Aspart (Novolog Vial) 0 units SQ TIDAC [facility] PRN Reason: Protocol Last Admin: 08/13/16 06:11 Dose: 4 units Levothyroxine Sodium (Synthroid -) 100 mcg PO DAILY@0700 [facility] Last Admin: 08/13/16 06:09 Dose: 100 mcg Memantine (Namenda -) 5 mg PO BID [facility] Last Admin: 08/12/16 21:38 Dose: 5 mg Metformin HCl (Glucophage -) 500 mg PO BID@0700,1630 [facility] Last Admin: 08/13/16 06:09 Dose: 500 mg Methylprednisolone Sodium Succinate (Solu-Medrol -) 40 mg IVPB BID [facility] Last Admin: 08/12/16 21:39 Dose: 40 mg Oseltamivir Phosphate (Tamiflu -) 75 mg PO BID [facility] Last Admin: 08/12/16 21:38 Dose: 75 mg Pantoprazole Sodium (Protonix -) 40 mg PO DAILY [facility] Last Admin: 08/12/16 11:13 Dose: 40 mg Ramipril (Altace -) 2.5 mg PO DAILY [facility] Last Admin: 08/12/16 11:12 Dose: 2.5 mg - Objective Vital Signs: Vital Signs Temperature 98.1 F 08/13/16 06:00 Pulse Rate 54 L 08/13/16 06:00 Respiratory Rate 20 08/13/16 06:00 Blood Pressure 101/48 08/13/16 06:00 O2 Sat by Pulse Oximetry (%) 98 08/12/16 21:00 Neck: Yes: Supple Cardiovascular: Yes: Regular Rate and Rhythm, S1, S2 Respiratory: Yes: Diminished Gastrointestinal: Yes: Normal Bowel Sounds, Soft, Abdomen, Obese. No: Tenderness Edema: Yes Edema: LLE: 3+, RLE: 3+ Additional Findings/Remarks: Review of Systems Cardiovascular: As noted above Respiratory: denies: reports: Cough Gastrointestinal: denies: Nausea, Vomiting, Diarrhea, Constipation or Abdominal Discomfort Musculoskeletal: No Symptoms Reported Endocrine: No Symptoms Reported Problem List - Problems (1) Hypertension Code(s): I10 - ESSENTIAL (PRIMARY) HYPERTENSION Qualifiers: Hypertension type: essential hypertension Qualified Code(s): I10 - Essential (primary) hypertension (2) Influenza A Code(s): J10.1 - FLU DUE TO OTH IDENT INFLUENZA VIRUS W OTH RESP MANIFEST (3) Subendocardial ischemia Code(s): I24.8 - OTHER FORMS OF ACUTE ISCHEMIC HEART DISEASE (4) COPD exacerbation Code(s): J44.1 - CHRONIC OBSTRUCTIVE PULMONARY DISEASE W (ACUTE) EXACERBATION (5) Chest discomfort Code(s): R07.89 - OTHER CHEST PAIN (6) Diabetes Code(s): E11.9 - TYPE 2 DIABETES MELLITUS WITHOUT COMPLICATIONS Qualifiers: Diabetes mellitus type: type 2 Diabetes mellitus complication status: without complication Diabetes mellitus assistant terminal manager insulin use: without usp use Qualified Code(s): E11.9 - Type 2 diabetes mellitus without complications (7) Hyperlipidemia associated with type 2 diabetes mellitus Code(s): E11.69 - TYPE 2 DIABETES MELLITUS WITH OTHER SPECIFIED COMPLICATION E78.5 - HYPERLIPIDEMIA, UNSPECIFIED (8) Hypothyroidism Code(s): E03.9 - HYPOTHYROIDISM, UNSPECIFIED Qualifiers: Hypothyroidism type: unspecified Qualified Code(s): E03.9 - Hypothyroidism, unspecified Assessment/Plan 1. Acute exacerbation of COPD, acute bronchitis, Influenza A 2. Subendocardial myocardial ischemia 3. HTN 4. DM 5. Hypercholesterolemia 6. Diabetic neuropathy 7. Hypothyroidism PLAN: 1. Continue Carvedilol 3.125 mg BID and Altace 2.5 mg QD with uptitration as tolerated 2. Continue Lipitor 20 mg QHS and ASA 81 mg QD 3. Bronchodilators, O2, steroids, empiric antibiotics course, Tamiflu, BIPAP as needed and GI and DVT prophylaxis 4. Additional cardiovascular evaluation can be performed as outpatient including nuclear myocardial perfusion imaging study for risk stratification Further plans are to follow Jackson Purvis MD
[2016-08-13] MEDS: ENOXAPARIN NA (PORCINE) 40 MG/0.4 ML DISP.SYRIN SQ SCH (10:34)
[2016-08-13] MEDS: LEVOFLOXACIN 500 MG IVPB 100 ML IVPB SCH (10:34)
[2016-08-13] MEDS: PANTOPRAZOLE 40 MG TABLET (FP) PO SCH (10:35)
[2016-08-13] MEDS: MEMANTINE HCL 5 MG TABLET (UD) PO SCH ×2 (10:35→21:24)
[2016-08-13] MEDS: GABAPENTIN 300 MG CAPSULE (FP) PO SCH ×2 (10:35→21:24)
[2016-08-13] MEDS: RAMIPRIL 2.5 MG CAPSULE (FP) PO SCH (10:35)
[2016-08-13] MEDS: CARVEDILOL 3.125 MG TABLET (FP) PO SCH ×2 (10:35→21:24)
[2016-08-13] MEDS: methylPREDNISolone NA SUCC 40 MG/1 ML VIAL IVPB SCH ×2 (10:36→21:24)
[2016-08-13] MEDS: BUDESONIDE/FORMETEROL FUMARATE 160/4.5 mcg INHALER IH SCH ×2 (10:36→21:24)
[2016-08-13] MEDS: OSELTAMIVIR PHOSPHATE 75 MG CAPSULE PO SCH ×2 (10:36→21:24)
[2016-08-13] MEDS: ALBUTEROL SO4 2.5/IPRATROPIUM 0.5 INH SOL 3 ML VIAL.NEB. NEB PRN (11:45)
--- NOTE | 2016-08-13 12:20 | PN ---
Progress Note (short form) - Note Progress Note: Pt feels little better. coughing + but better afebrile Vital Signs Temp 98 F 08/13/16 10:30 Pulse 64 08/13/16 10:30 Resp 20 08/13/16 10:30 BP 115/75 08/13/16 10:30 Pulse Ox 98 08/13/16 09:00 Intake & Output 08/12/16 08/13/16 08/13/16 23:59 11:59 23:59 Other: Voiding Method Toilet Toilet # Unmeasured Voids Void 1 Bowel Movement No No Active Medications Acetaminophen (Tylenol -) 650 mg PO Q6H PRN PRN Reason: FEVER OR PAIN Last Admin: 08/10/16 21:21 Dose: 650 mg Albuterol/Ipratropium (Duoneb -) 1 amp NEB Q4H PRN PRN Reason: SHORTNESS OF BREATH Last Admin: 08/13/16 11:45 Dose: 1 amp Atorvastatin Calcium (Lipitor -) 20 mg PO HS [facility] Last Admin: 08/12/16 21:37 Dose: 20 mg Budesonide/Formoterol Fumarate (Symbicort 160/4.5mcg -) 1 puff IH BID [facility] Last Admin: 08/13/16 10:36 Dose: 1 puff Carvedilol (Coreg -) 3.125 mg PO BID [facility] Last Admin: 08/13/16 10:35 Dose: 3.125 mg Enoxaparin Sodium (Lovenox -) 40 mg SQ DAILY [facility] Last Admin: 08/13/16 10:34 Dose: 40 mg Gabapentin (Neurontin -) 300 mg PO BID [facility] Last Admin: 08/13/16 10:35 Dose: 300 mg Guaifenesin (Robitussin -) 10 ml PO Q8H PRN PRN Reason: COUGH Last Admin: 08/13/16 06:10 Dose: 10 ml Levofloxacin (Levaquin 500 Mg Premixed Ivpb -) 100 mls @ 100 mls/hr IVPB DAILY [facility] Last Admin: 08/13/16 10:34 Dose: 100 mls/hr Insulin Aspart (Novolog Vial) 0 units SQ TIDAC [facility] PRN Reason: Protocol Last Admin: 08/13/16 06:11 Dose: 4 units Levothyroxine Sodium (Synthroid -) 100 mcg PO DAILY@0700 [facility] Last Admin: 08/13/16 06:09 Dose: 100 mcg Memantine (Namenda -) 5 mg PO BID [facility] Last Admin: 08/13/16 10:35 Dose: 5 mg Metformin HCl (Glucophage -) 500 mg PO BID@0700,1630 [facility] Last Admin: 08/13/16 06:09 Dose: 500 mg Oseltamivir Phosphate (Tamiflu -) 75 mg PO BID [facility] Last Admin: 08/13/16 10:36 Dose: 75 mg Pantoprazole Sodium (Protonix -) 40 mg PO DAILY [facility] Last Admin: 08/13/16 10:35 Dose: 40 mg Ramipril (Altace -) 2.5 mg PO DAILY [facility] Last Admin: 08/13/16 10:35 Dose: 2.5 mg CBC, BMP 08/10/16 10:05 08/10/16 10:05 PHYSICAL EXAMINATION: Constitutional: Yes: No Distress, Calm. Cardiovascular: Yes: Regular Rate and Rhythm Respiratory: Yes: Bilateral scattered rhonchi . Gastrointestinal: Yes: Normal Bowel Sounds, Soft, Abdomen, Obese. No: Distention, Tenderness Edema: No Neurological: Yes: Alert, Oriented Psychiatric: Yes: Alert, Oriented ASSESSMENT & PLAN: overall better. _ still coughing. - Continue Tamiflu. day # 4 Nebulizer treatment. Short course Solu-Medrol- taper - Droplet isolation. - Lovenox for DVT prophylaxis. - monitor bgm - will not discharge today -- hopefully tomorrow if better. Problem List - Problems (1) Influenza A Code(s): J10.1 - FLU DUE TO OTHER INFLUENZA VIRUS W OTH RESP MANIFEST (2) COPD exacerbation Code(s): J44.1 - CHRONIC OBSTRUCTIVE PULMONARY DISEASE W (ACUTE) EXACERBATION (3) Diabetes Code(s): E11.9 - TYPE 2 DIABETES MELLITUS WITHOUT COMPLICATIONS Qualifiers: Diabetes mellitus type: type 2 Diabetes mellitus complication status: with neurologic complications Diabetes mellitus complication detail: with unspecified neuropathy Qualified Code(s): E11.40 - Type 2 diabetes mellitus with diabetic neuropathy, unspecified; Z79.4 - [facility] (current) use of insulin
[2016-08-13] MEDS: ATORVASTATIN CA 20 MG TABLET (FP) PO SCH (21:24)
[2016-08-13] MEDS ORDERED: PT OWN MED DRAWER 7, Y5N ONE (21:27)
[2016-08-14] MEDS ORDERED: INSULIN (NOVOLOG) ASPART 100 UNITS/ML 10ML VIAL ONE ×2 (05:24→12:07)
[2016-08-14 06:06] VITALS: TEMP 97.7
[2016-08-14] MEDS: INSULIN (NOVOLOG) ASPART 100 UNITS/ML 10ML VIAL SQ SCH ×2 (06:08→12:43)
[2016-08-14] MEDS: metFORMIN HCL 500 MG TABLET (FP) PO SCH (06:08)
[2016-08-14] MEDS: LEVOTHYROXINE NA 100 MCG TABLET (FP) PO SCH (06:09)
[2016-08-14 09:13] VITALS: BP 131/73
[2016-08-14] MEDS: BUDESONIDE/FORMETEROL FUMARATE 160/4.5 mcg INHALER IH SCH (09:21)
[2016-08-14] MEDS: ENOXAPARIN NA (PORCINE) 40 MG/0.4 ML DISP.SYRIN SQ SCH (09:22)
[2016-08-14] MEDS: methylPREDNISolone NA SUCC 40 MG/1 ML VIAL IVPB SCH (09:22)
[2016-08-14] MEDS: MEMANTINE HCL 5 MG TABLET (UD) PO SCH (09:23)
[2016-08-14] MEDS: RAMIPRIL 2.5 MG CAPSULE (FP) PO SCH (09:23)
[2016-08-14] MEDS: GABAPENTIN 300 MG CAPSULE (FP) PO SCH (09:23)
[2016-08-14] MEDS: PANTOPRAZOLE 40 MG TABLET (FP) PO SCH (09:23)
[2016-08-14] MEDS: CARVEDILOL 3.125 MG TABLET (FP) PO SCH (09:23)
[2016-08-14] MEDS: OSELTAMIVIR PHOSPHATE 75 MG CAPSULE PO SCH (09:23)
--- NOTE | 2016-08-14 09:49 | PN ---
Progress Note, Physician Chief Complaint: Events noted Not in distress Feels better History of Present Illness: Patient was seen and examined. Awake and alert. Chart was reviewed Appears comfortable Denies chest pain or palpitation - Current Medication List Current Medications: Active Medications Acetaminophen (Tylenol -) 650 mg PO Q6H PRN PRN Reason: FEVER OR PAIN Last Admin: 08/10/16 21:21 Dose: 650 mg Albuterol/Ipratropium (Duoneb -) 1 amp NEB Q4H PRN PRN Reason: SHORTNESS OF BREATH Last Admin: 08/13/16 11:45 Dose: 1 amp Atorvastatin Calcium (Lipitor -) 20 mg PO HS [facility] Last Admin: 08/13/16 21:24 Dose: 20 mg Budesonide/Formoterol Fumarate (Symbicort 160/4.5mcg -) 1 puff IH BID [facility] Last Admin: 08/14/16 09:21 Dose: 1 puff Carvedilol (Coreg -) 3.125 mg PO BID [facility] Last Admin: 08/14/16 09:23 Dose: 3.125 mg Enoxaparin Sodium (Lovenox -) 40 mg SQ DAILY [facility] Last Admin: 08/14/16 09:22 Dose: 40 mg Gabapentin (Neurontin -) 300 mg PO BID [facility] Last Admin: 08/14/16 09:23 Dose: 300 mg Guaifenesin (Robitussin -) 10 ml PO Q8H PRN PRN Reason: COUGH Last Admin: 08/13/16 06:10 Dose: 10 ml Insulin Aspart (Novolog Vial) 0 units SQ TIDAC [facility] PRN Reason: Protocol Last Admin: 08/14/16 06:08 Dose: 6 units Levothyroxine Sodium (Synthroid -) 100 mcg PO DAILY@0700 [facility] Last Admin: 08/14/16 06:09 Dose: 100 mcg Memantine (Namenda -) 5 mg PO BID [facility] Last Admin: 08/14/16 09:23 Dose: 5 mg Metformin HCl (Glucophage -) 500 mg PO BID@0700,1630 [facility] Last Admin: 08/14/16 06:08 Dose: 500 mg Methylprednisolone Sodium Succinate (Solu-Medrol -) 20 mg IVPB BID [facility] Last Admin: 08/14/16 09:22 Dose: 20 mg Oseltamivir Phosphate (Tamiflu -) 75 mg PO BID [facility] Last Admin: 08/14/16 09:23 Dose: 75 mg Pantoprazole Sodium (Protonix -) 40 mg PO DAILY [facility] Last Admin: 08/14/16 09:23 Dose: 40 mg Ramipril (Altace -) 2.5 mg PO DAILY [facility] Last Admin: 08/14/16 09:23 Dose: 2.5 mg - Objective Vital Signs: Vital Signs Temperature 97.7 F 08/14/16 09:12 Pulse Rate 60 08/14/16 09:12 Respiratory Rate 20 08/14/16 09:12 Blood Pressure 131/73 08/14/16 09:12 O2 Sat by Pulse Oximetry (%) 93 L 08/14/16 09:00 Neck: Yes: Supple Cardiovascular: Yes: Regular Rate and Rhythm, S1, S2 Respiratory: Yes: Diminished Gastrointestinal: Yes: Normal Bowel Sounds, Soft. No: Tenderness Edema: No Additional Findings/Remarks: Review of Systems Cardiovascular: As noted above Respiratory: denies: reports: Cough - improved Gastrointestinal: denies: Nausea, Vomiting, Diarrhea, Constipation or Abdominal Discomfort Musculoskeletal: No Symptoms Reported Endocrine: No Symptoms Reported Problem List - Problems (1) Hypertension Code(s): I10 - ESSENTIAL (PRIMARY) HYPERTENSION Qualifiers: Hypertension type: essential hypertension Qualified Code(s): I10 - Essential (primary) hypertension (2) Influenza A Code(s): J10.1 - FLU DUE TO OTH IDENT INFLUENZA VIRUS W OTH RESP MANIFEST (3) Subendocardial ischemia Code(s): I24.8 - OTHER FORMS OF ACUTE ISCHEMIC HEART DISEASE (4) COPD exacerbation Code(s): J44.1 - CHRONIC OBSTRUCTIVE PULMONARY DISEASE W (ACUTE) EXACERBATION (5) Chest discomfort Code(s): R07.89 - OTHER CHEST PAIN (6) Diabetes Code(s): E11.9 - TYPE 2 DIABETES MELLITUS WITHOUT COMPLICATIONS Qualifiers: Diabetes mellitus type: type 2 Diabetes mellitus complication status: without complication Diabetes mellitus terminal gauger supervisor insulin use: without terminal gauger supervisor use Qualified Code(s): E11.9 - Type 2 diabetes mellitus without complications (7) Hyperlipidemia associated with type 2 diabetes mellitus Code(s): E11.69 - TYPE 2 DIABETES MELLITUS WITH OTHER SPECIFIED COMPLICATION E78.5 - HYPERLIPIDEMIA, UNSPECIFIED (8) Hypothyroidism Code(s): E03.9 - HYPOTHYROIDISM, UNSPECIFIED Qualifiers: Hypothyroidism type: unspecified Qualified Code(s): E03.9 - Hypothyroidism, unspecified Assessment/Plan 1. Acute exacerbation of COPD, acute bronchitis, Influenza A 2. Subendocardial myocardial ischemia 3. HTN 4. DM 5. Hypercholesterolemia 6. Diabetic neuropathy 7. Hypothyroidism PLAN: 1. Continue Carvedilol and Altace with uptitration as tolerated 2. Continue Lipitor and ASA 3. Bronchodilators, O2, steroids, empiric antibiotics course, Tamiflu, BIPAP as needed and GI and DVT prophylaxis 4. Additional cardiovascular evaluation can be performed as outpatient including nuclear myocardial perfusion imaging study for risk stratification Further plans are to follow. Discharge planning per PMD Jackson Purvis MD
--- NOTE | 2016-08-14 11:11 | DS ---
Physical Examination Vital Signs: Vital Signs Temperature 97.7 F 08/14/16 09:12 Pulse Rate 57 L 08/14/16 10:18 Respiratory Rate 08/14/16 09:12 Blood Pressure 131/73 08/14/16 09:12 O2 Sat by Pulse Oximetry (%) 93 L 08/14/16 10:18 <Veronica Carroll - Last Filed: 08/14/16 11:11> Vital Signs: Vital Signs Temperature 97.7 F 08/14/16 09:12 Pulse Rate 57 L 08/14/16 10:18 Respiratory Rate 08/14/16 09:12 Blood Pressure 131/73 08/14/16 09:12 O2 Sat by Pulse Oximetry (%) 93 L 08/14/16 10:18 Findings/Remarks: Patient feels much better. Cough present but improved. Saturation- 93 % on 3L nasal cannula. Denies chest pain. Constitutional: Yes: No Distress, Calm Eyes: Yes: Conjunctiva Clear Neck: Yes: Supple Cardiovascular: Yes: Regular Rate and Rhythm Respiratory: Yes: Diminished (at bases) Gastrointestinal: Yes: Soft Edema: No Neurological: Yes: Alert <Wilma Castillo - Last Filed: 08/14/16 11:35> Discharge Summary Reason For Visit: COUGH, INLU,PNEUMONIA Current Active Problems Cough (Acute) Hypertension (Acute) Influenza A (Acute) Subendocardial ischemia (Acute) - Home Medications Comprehensive Discharge Medication List: Ambulatory Orders Glipizide/Metformin HCl [Metaglip 2.5-250 mg Tablet] 1 each PO BID 09/03/15 Acetaminophen [Tylenol .Regular Strength -] 650 mg PO Q6H PRN #0 tablet Amitriptyline HCl [Elavil -] 25 mg PO DAILY 08/10/16 Levothyroxine Sodium [Levo-T] 100 mcg PO DAILY 08/10/16 Memantine HCl [Namenda Xr] 14 mg PO DAILY 08/10/16 Albuterol 2.5/Ipratropium 0.5 [Duoneb -] 1 amp NEB Q4H PRN #0 amp 08/14/16 Atorvastatin Ca [Lipitor] 20 mg PO HS tablet 08/14/16 Budesonide/Formeterol Fumarate [SYMBICORT 160/4.5mcg -] 1 puff IH BID inhaler 08/14/16 Carvedilol [Coreg -] 3.125 mg PO BID tablet 08/14/16 Gabapentin [Neurontin -] 300 mg PO BID capsule 08/14/16 Guaifenesin [Robitussin -] 10 ml PO Q8H PRN #0 cup 08/14/16 Levofloxacin [Levaquin] 500 mg PO 5XD #5 tablet 08/14/16 Pantoprazole Sodium [Protonix -] 40 mg PO DAILY #30 tablet.ec 08/14/16 Prednisone [Deltasone -] 10 mg PO ASDIR #30 tablet 08/14/16 Ramipril [Altace] 2.5 mg PO DAILY #30 capsule 08/14/16 <Veronica Carroll - Last Filed: 08/14/16 11:11> Current Active Problems Cough (Acute) Hypertension (Acute) Influenza A (Acute) Subendocardial ischemia (Acute) Hospital Course: Patient admitted from home due to shortness of breath. Work up revealed + Influenza. Treated with Tamiflu as well as steroids. Patient also had + tropnins likely stress related. Cardiology followed. Echo showed hypertrophy otherwise ok. Patient now is much better. Will d/c home today on PO abx. Pulse ox on room air 88%. She will need home oxygen. Will check CXR also before d/c. All above discussed with nursing staff. Will follow CXR before discharge today. Further recommendations will be made accordingly. Documentation prepared by Wilma Castillo, acting as a director global medical affairs for Veronica Carroll MD. - Home Medications Comprehensive Discharge Medication List: Ambulatory Orders Glipizide/Metformin HCl [Metaglip 2.5-250 mg Tablet] 1 each PO BID 09/03/15 Acetaminophen [Tylenol .Regular Strength -] 650 mg PO Q6H PRN #0 tablet Amitriptyline HCl [Elavil -] 25 mg PO DAILY 08/10/16 Levothyroxine Sodium [Levo-T] 100 mcg PO DAILY 08/10/16 Memantine HCl [Namenda Xr] 14 mg PO DAILY 08/10/16 Albuterol 2.5/Ipratropium 0.5 [Duoneb -] 1 amp NEB Q4H PRN #0 amp 08/14/16 Atorvastatin Ca [Lipitor] 20 mg PO HS tablet 08/14/16 Budesonide/Formeterol Fumarate [SYMBICORT 160/4.5mcg -] 1 puff IH BID inhaler 08/14/16 Carvedilol [Coreg -] 3.125 mg PO BID tablet 08/14/16 Gabapentin [Neurontin -] 300 mg PO BID capsule 08/14/16 Guaifenesin [Robitussin -] 10 ml PO Q8H PRN #0 cup 08/14/16 Levofloxacin [Levaquin] 500 mg PO 5XD #5 tablet 08/14/16 Pantoprazole Sodium [Protonix -] 40 mg PO DAILY #30 tablet.ec 08/14/16 Prednisone [Deltasone -] 10 mg PO ASDIR #30 tablet 08/14/16 Ramipril [Altace] 2.5 mg PO DAILY #30 capsule 08/14/16 <Wilma Castillo - Last Filed: 08/14/16 11:35> Condition: Stable - Instructions Referrals: Ronit Erazo MD [Primary Care Provider] - Disposition: HOME
[2016-08-14 11:52] VITALS: PULSE 64
== END 2016-08-14 15:26 | disposition home or self-care (01) | DRG 191 ==
LOC: JER 15:28 → JERBED 19:42 → J4S 08-10 12:28 → OBSVTOIN 08-11 10:08
PROVIDERS: ADMIT Internal Medicine; ATTEND Internal Medicine
DX: J44.0 Chronic obstructive pulmonary disease with (acute) lower respiratory infection (principal); I24.8 Other forms of acute ischemic heart disease; J20.9 Acute bronchitis, unspecified; J44.1 Chronic obstructive pulmonary disease with (acute) exacerbation; E11.40 Type 2 diabetes mellitus with diabetic neuropathy, unspecified; E78.5 Hyperlipidemia, unspecified; I10 Essential (primary) hypertension; E03.9 Hypothyroidism, unspecified; Z85.3 Personal history of malignant neoplasm of breast; J09.X2 Influenza due to identified novel influenza A virus with other respiratory manifestations
CPT/HCPCS: 36415; 71010-TC; 71020-TC; 80048; 80053; 81003; 81015; 82550; 82553; 83735; 83880; 84100; 84484; 85025; 87040; 87804; 93005; 93010; 93306-TC; 94640; 94761; 99285-25; G0378

== ENCOUNTER 2016-08-15 04:12 | Inpatient (IN) | payer OTHER ==
--- NOTE | 2016-08-15 05:21 | PDOC ---
History of Present Illness - General History Source: Patient, Old Records Exam Limitations: No Limitations - History of Present Illness Initial Comments: 08/15/16 05:17 70 Y F HTN, CAD, RECENT PNA AND ACS (DISCHARGED YESTERDAY) PTE C/O SOB AND RT LEG NUMBNESS. STS NO FEVER. HAS NOT FILL RX GIVEN. STS NO CP. AMBULATORY IN ED. IN NAD. NO N/V. NO INCONTINENCE. NO SPEECH OR VISUAL CHANGES. <Iraj Castle - Last Filed: 08/15/16 06:30> <Ursula Montenegro - Last Filed: 08/15/16 07:28> <Esha Wyatt - Last Filed: 08/15/16 09:26> <Rosy Paulson - Last Filed: 08/15/16 11:16> - General Chief Complaint: CVA/TIA Stated Complaint: CHEST PAIN, SOB Time Seen by Provider: 08/15/16 04:56 Past History - Past Medical History Cancer: Yes (LEFT BREAST) Diabetes: Yes HTN: Yes Hypercholesterolemia: Yes Suicide Attempt (Hx): No - Surgical History Abdominal Surgery: No - Immunization History Immunization Up to Date: Yes - Psycho/Social/Smoking Cessation Hx Anxiety: No Suicidal Ideation: No Smoking Status: No Smoking History: Never smoked Have you smoked in the past 12 months: No Number of Cigarettes Smoked Daily: 0 Cigars Per Day: 0 Information on smoking cessation initiated: No Hx Alcohol Use: No Drug/Substance Use Hx: No Substance Use Type: None Hx Substance Use Treatment: No <Iraj Castle - Last Filed: 08/15/16 06:30> <Ursula Montenegro - Last Filed: 08/15/16 07:28> <Esha Wyatt - Last Filed: 08/15/16 09:26> <Rosy Paulson - Last Filed: 08/15/16 11:16> - Past Medical History Allergies/Adverse Reactions: Allergies Allergy/AdvReac Type Severity Reaction Status Date / Time No Known Allergies Allergy Verified 08/15/16 04:24 Home Medications: Ambulatory Orders Glipizide/Metformin HCl [Metaglip 2.5-250 mg Tablet] 1 each PO BID 09/03/15 Acetaminophen [Tylenol .Regular Strength -] 650 mg PO Q6H PRN #0 tablet Amitriptyline HCl [Elavil -] 25 mg PO DAILY 08/10/16 Levothyroxine Sodium [Levo-T] 100 mcg PO DAILY 08/10/16 Memantine HCl [Namenda Xr] 14 mg PO DAILY 08/10/16 Albuterol 2.5/Ipratropium 0.5 [Duoneb -] 1 amp NEB Q4H PRN #0 amp 08/14/16 Atorvastatin Ca [Lipitor] 20 mg PO HS tablet 08/14/16 Budesonide/Formeterol Fumarate [SYMBICORT 160/4.5mcg -] 1 puff IH BID inhaler 08/14/16 Carvedilol [Coreg -] 3.125 mg PO BID tablet 08/14/16 Gabapentin [Neurontin -] 300 mg PO BID capsule 08/14/16 Guaifenesin [Robitussin -] 10 ml PO Q8H PRN #0 cup 08/14/16 Levofloxacin [Levaquin] 500 mg PO 5XD #5 tablet 08/14/16 Pantoprazole Sodium [Protonix -] 40 mg PO DAILY #30 tablet.ec 08/14/16 Prednisone [Deltasone -] 10 mg PO ASDIR #30 tablet 08/14/16 Ramipril [Altace] 2.5 mg PO DAILY #30 capsule 08/14/16 Review of Systems - Review of Systems Able to Perform ROS?: Yes Is the patient limited [place] proficient: Yes Constitutional: Yes: Symptoms Reported, See HPI, Weakness HEENTM: No: Symptoms Reported Respiratory: Yes: Symptoms reported, See HPI, Shortness of Breath Cardiac (ROS): No: Symptoms Reported ABD/GI: No: Symptoms Reported Musculoskeletal: No: Symptoms Reported, Back Pain Integumentary: No: Symptoms Reported Neurological: Yes: Symptoms reported, See HPI, Numbness All Other Systems: Reviewed and Negative <Iraj Castle - Last Filed: 08/15/16 06:30> *Physical Exam - Vital Signs Last Vital Signs Temp Pulse Resp BP Pulse Ox 98.6 F 79 20 157/67 95 08/15/16 04:25 08/15/16 04:25 08/15/16 04:25 08/15/16 04:25 08/15/16 04:25 - Physical Exam General Appearance: Yes: Nourished, Appropriately Dressed. No: Apparent Distress HEENT: positive: Normal ENT Inspection Neck: positive: Supple. negative: Tender, Carotid bruit Respiratory/Chest: positive: Lungs Clear, Normal Breath Sounds. negative: Respiratory Distress Cardiovascular: positive: Regular Rhythm, Regular Rate Gastrointestinal/Abdominal: positive: Normal Bowel Sounds, Soft. negative: Tender Musculoskeletal: positive: Normal Inspection. negative: CVA Tenderness, Vertebral Tenderness Extremity: positive: Normal Capillary Refill, Normal Inspection, Normal Range of Motion Integumentary: positive: Normal Color Neurologic: positive: billet recorder II-XII NML intact, Fully Oriented, Alert, Normal Mood/ Affect, Normal Response, Motor Strength 5/5. negative: Sensory Deficit <Iraj Castle - Last Filed: 08/15/16 06:30> - Vital Signs Last Vital Signs Temp Pulse Resp BP Pulse Ox 98.6 F 79 20 157/67 95 08/15/16 04:25 08/15/16 04:25 08/15/16 04:25 08/15/16 04:25 08/15/16 04:25 <Ursula Montenegro - Last Filed: 08/15/16 07:28> - Vital Signs Last Vital Signs Temp Pulse Resp BP Pulse Ox 98.6 F 79 20 157/67 95 08/15/16 04:25 08/15/16 04:25 08/15/16 04:25 08/15/16 04:25 08/15/16 04:25 <Esha Wyatt - Last Filed: 08/15/16 09:26> - Vital Signs Last Vital Signs Temp Pulse Resp BP Pulse Ox 98.6 F 79 20 157/67 95 08/15/16 04:25 08/15/16 04:25 08/15/16 04:25 08/15/16 04:25 08/15/16 04:25 <Rosy Paulson - Last Filed: 08/15/16 11:16> Heart Score/ECG Review - ECG Impressions Comment:: 08/15/16 05:24 NSR @62bpm Left anterior fascicular block Abnormal ECG <Ursula Montenegro - Last Filed: 08/15/16 07:28> ED Treatment Course - LABORATORY CBC & Chemistry Diagram: 08/15/16 06:05 08/15/16 06:05 - RADIOLOGY Radiology Studies Ordered: Category Date Time Status CHEST PA & LAT [RAD] Stat Radiology 08/15/16 05:15 Ordered <Iraj Castle - Last Filed: 08/15/16 06:30> - LABORATORY CBC & Chemistry Diagram: 08/15/16 06:05 08/15/16 06:05 <Ursula Montenegro - Last Filed: 08/15/16 07:28> - LABORATORY CBC & Chemistry Diagram: 08/15/16 06:05 08/15/16 06:05 - ADDITIONAL ORDERS Additional order review: Laboratory Results 08/15/16 06:05 Sodium 136 Potassium 4.2 Chloride 94 L Carbon Dioxide 35 H D Anion Gap 7 L BUN 21 H D Creatinine 0.8 D Random Glucose 275 H D Calcium 9.2 08/15/16 06:05 RBC 4.96 MCV 87.7 MCHC 34.1 RDW 13.2 MPV 9.3 Neutrophils % 66.5 Lymphocytes % 23.4 Monocytes % 6.4 Eosinophils % 1.4 D Basophils % 2.3 H - Medications Given in the ED: ED Medications Discontinued Medications Generic Name Dose Route Start Last Admin Trade Name Freq PRN Reason Stop Dose Admin Aspirin 325 mg 08/15/16 06:51 08/15/16 07:03 Ecotrin - PO 08/15/16 06:52 325 mg ONCE ONE Administration <Esha Wyatt - Last Filed: 08/15/16 09:26> - LABORATORY CBC & Chemistry Diagram: 08/15/16 06:05 08/15/16 06:05 - ADDITIONAL ORDERS Additional order review: Laboratory Results 08/15/16 08/15/16 06:05 06:05 Sodium 136 Potassium 4.2 Chloride 94 L Carbon Dioxide 35 H D Anion Gap 7 L BUN 21 H D Creatinine 0.8 D Random Glucose 275 H D Calcium 9.2 Creatine Kinase 114 Troponin I 0.03 08/15/16 06:05 RBC 4.96 MCV 87.7 MCHC 34.1 RDW 13.2 MPV 9.3 Neutrophils % 66.5 Lymphocytes % 23.4 Monocytes % 6.4 Eosinophils % 1.4 D Basophils % 2.3 H - Medications Given in the ED: ED Medications Discontinued Medications Generic Name Dose Route Start Last Admin Trade Name [place] PRN Reason Stop Dose Admin Aspirin 325 mg 08/15/16 06:51 08/15/16 07:03 Ecotrin - PO 08/15/16 06:52 325 mg ONCE ONE Administration <Rosy Paulson - Last Filed: 08/15/16 11:16> Medical Decision Making - Medical Decision Making 08/15/16 06:31 SX C/W RADICULOPATHY NO S/M DEFICITS CXR UNCHANGED FROM PRIOR [facility]LE WILL D/W PMD <Iraj Castle - Last Filed: 08/15/16 06:30> - Medical Decision Making 08/15/16 06:[address] Ronit Erazo (via answering service) at 6:44, 6:59, 7:28 Awaiting call back <Ursula Montenegro - Last Filed: 08/15/16 07:28> - Medical Decision Making 08/15/16 08:18 Fourth call placed to Dr. Roint Stinson. Awaiting call back. 08/15/16 08:[address] Ronit Stinson. 08/15/16 08:57 Overhead page again to Dr. Ronit Stinson. 08/15/16 09:04 MicroBlogged Hospitalist. 08/15/16 09:[address] Ronit Stinson. Case was discussed. <Esha Wyatt - Last Filed: 08/15/16 09:26> - Medical Decision Making 08/15/16 09:30 After multiple calls to Dr. Dr. Ronit Erazo, callback at 9:30a Case discussed-will admit 08/15/16 09:32 Laboratory Results - last 24 hr 08/15/16 08/15/16 08/15/16 06:05 06:05 06:05 WBC 10.4 H D RBC 4.96 Hgb 14.8 Hct 43.5 MCV 87.7 MCHC 34.1 RDW 13.2 Plt Count 267 D MPV 9.3 Neutrophils % 66.5 Lymphocytes % 23.4 Monocytes % 6.4 Eosinophils % 1.4 D Basophils % 2.3 H Sodium 136 Potassium 4.2 Chloride 94 L Carbon Dioxide 35 H D Anion Gap 7 L BUN 21 H D Creatinine 0.8 D Random Glucose 275 H D Calcium 9.2 Creatine Kinase 114 Troponin I 0.03 <Rosy Paulson - Last Filed: 08/15/16 11:16> *DC/Admit/Observation/Transfer <Iraj Castle - Last Filed: 08/15/16 06:30> <Ursula Montenegro - Last Filed: 08/15/16 07:28> <Esha Wyatt - Last Filed: 08/15/16 09:26> - Discharge Dispostion Admit: Yes <Rosy Paulson - Last Filed: 08/15/16 11:16> Diagnosis at time of Disposition: Shortness of breath, Cough, Chest discomfort, Radiculopathy
[2016-08-15 06:17] LABS: BASOPHIL 2.3 % (0-2.0); EOSINOPHIL 1.4 % (0-4.5); MCH 29.9 pg (25.7-33.7); MCHC 34.1 g/dl (32.0-36.0); MEAN CELL VOLUME 87.7 fl (80-96); MEAN PLT VOLUME 9.3 fl (7.5-11.1); NEUTROPHILS 66.5 % (42.8-82.8); PLATELET COUNT 267 K/MM3 (134-434); RDW 13.2 % (11.6-15.6); WHITE BLOOD COUNT 10.4 K/mm3 (4.0-10.0)
[2016-08-15 06:47] LABS: CALCIUM 9.2 mg/dL (8.5-10.1); CREATININE 0.8 mg/dL (0.55-1.02)
[2016-08-15] MEDS ORDERED: ASPIRIN 325 MG ENTERIC COATED TABLET (FP) PO ONE (06:51)
[2016-08-15] MEDS ORDERED: ASPIRIN 325 MG ENTERIC COATED TABLET (FP) ONE (06:55)
[2016-08-15 09:25] LABS: TROPONIN I 0.03 ng/ml (0.00-0.05)
--- NOTE | 2016-08-15 09:46 | HP ---
Admitting History and Physical - Primary Care Physician PCP: Ronit Erazo - Admission Chief Complaint: chest pain and SOB History of Present Illness: 70 yrs old female who wad discharged yesterday for Influenza, chest pain -- ACS ruled out by serial cardiac enzymes, comes back to ER for chest pain and SOB. She was also dc on home o2 as her ambulatory O2 sat was 88 % She was dc home on po antibiotics and tapering prednisone She completed tamiflu here in hospital Daughter at her bedside Pt examined in ER ( Note that the ER states have been trying to contact me through service but unable to get through -- they did not call me on my cell phone and my number is available ! 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 No: Current Radiation Therapy Endocrine: Yes: Diabetes Mellitus, Hypothyroidism - Smoking History Smoking history: Never smoked Have you smoked in the past 12 months: No Aproximately how many cigarettes per day: 0 - Alcohol/Substance Use Hx Alcohol Use: No Home Medications - Allergies Allergies/Adverse Reactions: Allergies Allergy/AdvReac Type Severity Reaction Status Date / Time No Known Allergies Allergy Verified 08/15/16 04:24 - Home Medications Home Medications: Ambulatory Orders Glipizide/Metformin HCl [Metaglip 2.5-250 mg Tablet] 1 each PO BID 09/03/15 Acetaminophen [Tylenol .Regular Strength -] 650 mg PO Q6H PRN #0 tablet Amitriptyline HCl [Elavil -] 25 mg PO DAILY 08/10/16 Levothyroxine Sodium [Levo-T] 100 mcg PO DAILY 08/10/16 Memantine HCl [Namenda Xr] 14 mg PO DAILY 08/10/16 Albuterol 2.5/Ipratropium 0.5 [Duoneb -] 1 amp NEB Q4H PRN #0 amp 08/14/16 Atorvastatin Ca [Lipitor] 20 mg PO HS tablet 08/14/16 Budesonide/Formeterol Fumarate [SYMBICORT 160/4.5mcg -] 1 puff IH BID inhaler 08/14/16 Carvedilol [Coreg -] 3.125 mg PO BID tablet 08/14/16 Gabapentin [Neurontin -] 300 mg PO BID capsule 08/14/16 Guaifenesin [Robitussin -] 10 ml PO Q8H PRN #0 cup 08/14/16 Levofloxacin [Levaquin] 500 mg PO 5XD #5 tablet 08/14/16 Pantoprazole Sodium [Protonix -] 40 mg PO DAILY #30 tablet.ec 08/14/16 Prednisone [Deltasone -] 10 mg PO ASDIR #30 tablet 08/14/16 Ramipril [Altace] 2.5 mg PO DAILY #30 capsule 08/14/16 Review of Systems - Review of Systems Constitutional: denies: Chills, Fever Cardiovascular: reports: Chest Pain, Shortness of Breath. denies: Edema, Palpitations Respiratory: reports: Cough, Wheezing Physical Examination Vital Signs: Vital Signs Temperature 98.6 F 08/15/16 04:25 Pulse Rate 79 08/15/16 04:25 Respiratory Rate 20 08/15/16 04:25 Blood Pressure 157/67 08/15/16 04:25 O2 Sat by Pulse Oximetry (%) 95 08/15/16 04:25 Constitutional: Yes: No Distress, Calm Cardiovascular: Yes: Regular Rate and Rhythm Respiratory: Yes: Diminished, Rhonchi Gastrointestinal: Yes: Normal Bowel Sounds, Soft, Abdomen, Obese. No: Distention, Tenderness Edema: No Psychiatric: Yes: Alert, Oriented Labs: CBC, BMP 08/15/16 06:05 08/15/16 06:05 Imaging - Results Chest X-ray: Image Reviewed (interstitial changes) EKG: Image Reviewed (no ST elevation) Problem List - Problems (1) Chest discomfort Code(s): R07.89 - OTHER CHEST PAIN (2) Cough Code(s): R05 - COUGH (3) Shortness of breath Code(s): R06.02 - SHORTNESS OF BREATH (4) COPD exacerbation Code(s): J44.1 - CHRONIC OBSTRUCTIVE PULMONARY DISEASE W (ACUTE) EXACERBATION (5) Diabetes Code(s): E11.9 - TYPE 2 DIABETES MELLITUS WITHOUT COMPLICATIONS Qualifiers: Diabetes mellitus type: type 2 Diabetes mellitus complication status: without complication Diabetes mellitus shelter insulin use: without shelter use Qualified Code(s): E11.9 - Type 2 diabetes mellitus without complications (6) Hypothyroidism Code(s): E03.9 - HYPOTHYROIDISM, UNSPECIFIED Qualifiers: Hypothyroidism type: unspecified Qualified Code(s): E03.9 - Hypothyroidism, unspecified (7) Interstitial lung disease Code(s): J84.9 - INTERSTITIAL PULMONARY DISEASE, UNSPECIFIED Assessment/Plan PLAN --Start Solumedrol -- continue levaquiin -- completed Tamiflu -- Cardiology and Pulm evaluation -- continue with meds - PT eval -- Lovenox for DVT prophylaxis -- Nebs as needed Time spent 30min
[2016-08-15] MEDS ORDERED: ALBUTEROL SO4 0.083% IH SOL 2.5 MG/3 ML VIAL.NEB. NEB PRN ×2 (10:40→15:19)
[2016-08-15] MEDS ORDERED: ACETAMINOPHEN 325 MG TABLET (FP) PO PRN (10:42)
[2016-08-15] MEDS ORDERED: guaiFENesin 200 MG/10 ML 10 ML UNIT-DOSE CUPS PO PRN (10:42)
[2016-08-15] MEDS ORDERED: LEVOFLOXACIN 500 MG IVPB 100 ML IVPB SCH (10:45)
[2016-08-15] MEDS ORDERED: LEVOFLOXACIN 500 MG IVPB 100 ML IVPB ONE (11:22)
[2016-08-15] MEDS ORDERED: methylPREDNISolone NA SUCC 40 MG/1 ML VIAL ONE ×2 (11:22→17:37)
[2016-08-15] MEDS ORDERED: methylPREDNISolone NA SUCC 40 MG/1 ML VIAL IVPB SCH (11:30)
[2016-08-15] MEDS ORDERED: INSULIN (NOVOLOG) ASPART 100 UNITS/ML 10ML VIAL ONE ×2 (12:41→17:38)
[2016-08-15] MEDS: BUDESONIDE/FORMETEROL FUMARATE 160/4.5 mcg INHALER IH SCH ×2 (12:42→22:08)
[2016-08-15] MEDS: INSULIN SLIDING SCALE (NOVOLOG) 1 VIAL SQ SCH ×2 (12:42→17:39)
[2016-08-15 12:54] LABS: TROPONIN I 0.04 ng/ml (0.00-0.05)
--- NOTE | 2016-08-15 14:30 | PN ---
Progress Note, Physician Chief Complaint: Shortness of breath and chest discomfort History of Present Illness: Patient was seen and examined in ER. She was readmitted after being discharged yesterday. She was treated for influenza and chest pain. Troponin was slightly elevated last admission now returns to ED with chest pain and shortness of breath. Her O2 saturation was 88%. She had completed Tamiflu and was given antibiotics and steroids on prior hospitalization. she complains of intermittent chest discomfort and back pain, No fever or chills. Denies paroxysmal nocturnal dyspnea or orthopnea. Denies headache or lightheadedness. Patient also complains of right lower extremity numbness. Cardiology called for follow up. - Current Medication List Current Medications: Active Medications Acetaminophen (Tylenol -) 650 mg PO Q6H PRN PRN Reason: FEVER OR PAIN Albuterol Sulfate (Ventolin 0.083% Nebulizer Soln -) 1 amp NEB Q6H PRN PRN Reason: SHORT OF BREATH/WHEEZING Amitriptyline HCl (Elavil -) 25 mg PO HS ANU Atorvastatin Calcium (Lipitor -) 20 mg PO HS ANU Budesonide/Formoterol Fumarate (Symbicort 160/4.5mcg -) 2 puff IH BID [facility] Last Admin: 08/15/16 12:42 Dose: 2 puff Carvedilol (Coreg -) 3.125 mg PO BID [facility] Enoxaparin Sodium (Lovenox -) 40 mg SQ DAILY [facility] Gabapentin (Neurontin -) 300 mg PO BID [facility] Glipizide (Glucotrol -) 2.5 mg PO BIDAC [facility] Guaifenesin (Robitussin -) 10 ml PO Q8H PRN PRN Reason: COUGH Levofloxacin (Levaquin 500 Mg Premixed Ivpb -) 100 mls @ 100 mls/hr IVPB DAILY [facility] Last Admin: 08/15/16 11:23 Dose: 100 mls/hr Insulin Aspart (Novolog Vial Sliding Scale -) 1 vial SQ TIDAC [facility] PRN Reason: Protocol Last Admin: 08/15/16 12:42 Dose: 6 units Levothyroxine Sodium (Synthroid -) 100 mcg PO DAILY [facility] Memantine (Namenda -) 5 mg PO BID [facility] Metformin HCl (Glucophage -) 250 mg PO BIDAC [facility] Methylprednisolone Sodium Succinate (Solu-Medrol -) 40 mg IVPB Q8H-IV [facility] Last Admin: 08/15/16 11:23 Dose: 40 mg Pantoprazole Sodium (Protonix -) 40 mg PO DAILY [facility] Ramipril (Altace -) 2.5 mg PO DAILY ANU - Objective Vital Signs: Vital Signs Temperature 98.6 F 08/15/16 12:10 Pulse Rate 65 08/15/16 12:10 Respiratory Rate 19 08/15/16 12:10 Blood Pressure 140/71 08/15/16 12:10 O2 Sat by Pulse Oximetry (%) 95 08/15/16 12:10 Neck: Yes: Supple Cardiovascular: Yes: Regular Rate and Rhythm, S1, S2 Respiratory: Yes: Diminished Gastrointestinal: Yes: Normal Bowel Sounds, Soft. No: Tenderness Edema: No Additional Findings/Remarks: eview of Systems Cardiovascular: As noted above, (+) chest pain Respiratory: denies: reports: Cough, shortness of breath Gastrointestinal: denies: Nausea, Vomiting, Diarrhea, Constipation or Abdominal Discomfort Musculoskeletal: No Symptoms Reported Endocrine: No Symptoms Reported Labs: CBCD WBC 10.4 K/mm3 (4.0-10.0) H D 08/15/16 06:05 RBC 4.96 M/mm3 (3.60-5.2) 08/15/16 06:05 Hgb 14.8 GM/dL (10.7-15.3) 08/15/16 06:05 Hct 43.5 % (32.4-45.2) 08/15/16 06:05 MCV 87.7 fl (80-96) 08/15/16 06:05 MCHC 34.1 g/dl (32.0-36.0) 08/15/16 06:05 RDW 13.2 % (11.6-15.6) 08/15/16 06:05 Plt Count 267 K/MM3 (134-434) D 08/15/16 06:05 MPV 9.3 fl (7.5-11.1) 08/15/16 06:05 CMP Sodium 136 mmol/L (136-145) 08/15/16 06:05 Potassium 4.2 mmol/L (3.5-5.1) 08/15/16 06:05 Chloride 94 mmol/L (98-107) L 08/15/16 06:05 Carbon Dioxide 35 mmol/L (21-32) H D 08/15/16 06:05 Anion Gap 7 (8-16) L 08/15/16 06:05 BUN 21 mg/dL (7-18) H D 08/15/16 06:05 Creatinine 0.8 mg/dL (0.55-1.02) D 08/15/16 06:05 Random Glucose 275 mg/dL (74-106) H D 08/15/16 06:05 Calcium 9.2 mg/dL (8.5-10.1) 08/15/16 06:05 CARDIAC ENZYMES Creatine Kinase 82 IU/L (26-192) 08/15/16 12:15 Troponin I 0.04 ng/ml (0.00-0.05) 08/15/16 12:15 - ....Imaging Chest X-ray: Report Reviewed (Increased marking both lung) Problem List - Problems (1) Chest discomfort Code(s): R07.89 - OTHER CHEST PAIN (2) Hypertension Code(s): I10 - ESSENTIAL (PRIMARY) HYPERTENSION Qualifiers: Hypertension type: essential hypertension Qualified Code(s): I10 - Essential (primary) hypertension (3) Influenza A Code(s): J10.1 - FLU DUE TO OTH IDENT INFLUENZA VIRUS W OTH RESP MANIFEST (4) Subendocardial ischemia Code(s): I24.8 - OTHER FORMS OF ACUTE ISCHEMIC HEART DISEASE (5) COPD exacerbation Code(s): J44.1 - CHRONIC OBSTRUCTIVE PULMONARY DISEASE W (ACUTE) EXACERBATION (6) Diabetes Code(s): E11.9 - TYPE 2 DIABETES MELLITUS WITHOUT COMPLICATIONS Qualifiers: Diabetes mellitus type: type 2 Diabetes mellitus complication status: without complication Diabetes mellitus half-way insulin use: without terminal supervisor use Qualified Code(s): E11.9 - Type 2 diabetes mellitus without complications (7) Hypothyroidism Code(s): E03.9 - HYPOTHYROIDISM, UNSPECIFIED Qualifiers: Hypothyroidism type: unspecified Qualified Code(s): E03.9 - Hypothyroidism, unspecified (8) Hypercholesterolemia Code(s): E78.0 - PURE HYPERCHOLESTEROLEMIA * DO NOT USE * Assessment/Plan 1. COPD exacerbation with recent history of bronchitis and influenza A 2. History of subendocardial ischemia 3. HTN 4. Type 2 DM 5. Hypercholesterolemia 6. Lower extremity numbness with underlying history of diabetic neuropathy 7. Hypothyroidism PLAN: 1. Continue Carvedilol and Ramipril as tolerated 2. Continue Lipitor 3. Continue antibiotic coverage, bronchodilators, O2 and steroids 4. DVT prophylaxis 5. Cardiac work up can be done as outpatient Further plans are to follow Jackson Purvis MD
--- NOTE | 2016-08-15 15:06 | CONSULT ---
Consult Consult Specialty:: PULM/CCM Referred by:: ATIF Reason for Consultation:: SOB - History of Present Illness Chief Complaint: SOB History of Present Illness: 70 F, with listed medical history. Recent admission to [facility] due to Influenza and (+) troponin. She was discharged and now returns due to CP and SOB. She completed a course of Tamiflu and received a course of ABX. She was also placed on steroids. No paroxysmal nocturnal dyspnea or orthopnea. No MELARA or dizziness. No travel history or sick contacts. No night sweats or hemoptysis. CXR : chronic interstitial disease pattern / CT chest 2014 reveals a diffuse ILD. 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) Cardio/Vascular: Yes: HTN, Hyperlipdemia Endocrine: Yes: Diabetes Mellitus, Hypothyroidism - Alcohol/Substance Use Hx Alcohol Use: No - Smoking History Smoking history: Never smoked Have you smoked in the past 12 months: No Aproximately how many cigarettes per day: 0 Home Medications - Allergies Allergies/Adverse Reactions: Allergies Allergy/AdvReac Type Severity Reaction Status Date / Time No Known Allergies Allergy Verified 08/15/16 04:24 - Home Medications Home Medications: Ambulatory Orders Glipizide/Metformin HCl [Metaglip 2.5-250 mg Tablet] 1 each PO BID 09/03/15 Acetaminophen [Tylenol .Regular Strength -] 650 mg PO Q6H PRN #0 tablet Amitriptyline HCl [Elavil -] 25 mg PO DAILY 08/10/16 Levothyroxine Sodium [Levo-T] 100 mcg PO DAILY 08/10/16 Memantine HCl [Namenda Xr] 14 mg PO DAILY 08/10/16 Albuterol 2.5/Ipratropium 0.5 [Duoneb -] 1 amp NEB Q4H PRN #0 amp 08/14/16 Atorvastatin Ca [Lipitor] 20 mg PO HS tablet 08/14/16 Budesonide/Formeterol Fumarate [SYMBICORT 160/4.5mcg -] 1 puff IH BID inhaler 08/14/16 Carvedilol [Coreg -] 3.125 mg PO BID tablet 08/14/16 Gabapentin [Neurontin -] 300 mg PO BID capsule 08/14/16 Guaifenesin [Robitussin -] 10 ml PO Q8H PRN #0 cup 08/14/16 Levofloxacin [Levaquin] 500 mg PO 5XD #5 tablet 08/14/16 Pantoprazole Sodium [Protonix -] 40 mg PO DAILY #30 tablet.ec 08/14/16 Prednisone [Deltasone -] 10 mg PO ASDIR #30 tablet 08/14/16 Ramipril [Altace] 2.5 mg PO DAILY #30 capsule 08/14/16 Review of Systems - Review of Systems Constitutional: reports: Malaise, Weakness. denies: Chills, Fever, Night Sweats , Unintentional Wgt. Loss Eyes: reports: No Symptoms HENT: reports: No Symptoms Neck: reports: No Symptoms Cardiovascular: reports: Chest Pain, Shortness of Breath. denies: Edema, Palpitations Respiratory: reports: Cough, Hemoptysis, SOB, SOB on Exertion. denies: Wheezing Gastrointestinal: reports: No Symptoms Genitourinary: reports: No Symptoms Breasts: reports: No Symptoms Reported Musculoskeletal: reports: No Symptoms Integumentary: reports: No Symptoms Neurological: reports: No Symptoms Endocrine: reports: No Symptoms Hematology/Lymphatic: reports: No Symptoms Psychiatric: reports: No Symptoms Physical Exam Vital Signs: Vital Signs Temperature 98.6 F 08/15/16 12:10 Pulse Rate 65 08/15/16 12:10 Respiratory Rate 19 08/15/16 12:10 Blood Pressure 140/71 08/15/16 12:10 O2 Sat by Pulse Oximetry (%) 95 08/15/16 12:10 Constitutional: Yes: No Distress Eyes: Yes: Conjunctiva Clear, EOM Intact HENT: Yes: Atraumatic, Normocephalic Neck: Yes: Trachea Midline Cardiovascular: Yes: Regular Rate and Rhythm Respiratory: Yes: Cough, Diminished, On Nasal O2, Rhonchi, SOB, Tachypnea, Wheezes. No: Accessory Muscle Use, Stridor Gastrointestinal: Yes: Normal Bowel Sounds, Soft, Abdomen, Obese ...Rectal Exam: Yes: Deferred Renal/: Yes: WNL Breast(s): Yes: WNL Musculoskeletal: Yes: WNL Extremities: Yes: WNL Edema: Yes Peripheral Pulses WNL: Yes Integumentary: Yes: WNL Neurological: Yes: Alert, Oriented ...Motor Strength: WNL Psychiatric: Yes: WNL, Alert, Oriented Imaging - Results Chest X-ray: Report Reviewed, Image Reviewed Problem List - Problems (1) Chest discomfort Code(s): R07.89 - OTHER CHEST PAIN (2) Cough Code(s): R05 - COUGH (3) Hypercholesterolemia Code(s): E78.0 - PURE HYPERCHOLESTEROLEMIA * DO NOT USE * (4) Hypertension Code(s): I10 - ESSENTIAL (PRIMARY) HYPERTENSION Qualifiers: Hypertension type: essential hypertension Qualified Code(s): I10 - Essential (primary) hypertension (5) Influenza A Code(s): J10.1 - FLU DUE TO OTH IDENT INFLUENZA VIRUS W OTH RESP MANIFEST (6) Shortness of breath Code(s): R06.02 - SHORTNESS OF BREATH (7) COPD exacerbation Code(s): J44.1 - CHRONIC OBSTRUCTIVE PULMONARY DISEASE W (ACUTE) EXACERBATION (8) Diabetes Code(s): E11.9 - TYPE 2 DIABETES MELLITUS WITHOUT COMPLICATIONS Qualifiers: Diabetes mellitus type: type 2 Diabetes mellitus complication status: without complication Diabetes mellitus assisted insulin use: without assisted use Qualified Code(s): E11.9 - Type 2 diabetes mellitus without complications (9) Diabetic neuropathy Code(s): E11.40 - TYPE 2 DIABETES MELLITUS WITH DIABETIC NEUROPATHY, UNSP Qualifiers: Diabetes mellitus type: type 2 (10) Hypothyroidism Code(s): E03.9 - HYPOTHYROIDISM, UNSPECIFIED Qualifiers: Hypothyroidism type: unspecified Qualified Code(s): E03.9 - Hypothyroidism, unspecified (11) Interstitial lung disease Code(s): J84.9 - INTERSTITIAL PULMONARY DISEASE, UNSPECIFIED (12) Multiple nevi Code(s): D22.9 - MELANOCYTIC NEVI, UNSPECIFIED Assessment/Plan PLAN: Medrol BD TX ID evaluation O2 as needed NIPPV if she worsens CT chest no contrast VTE prophylaxis Cardiac workup per Cardiology Will follow Thank you. Dr Morocho CCTime 35"
[2016-08-15] MEDS ORDERED: glipiZIDE 5 MG TABLET (FP) ONE (16:38)
[2016-08-15] MEDS: glipiZIDE 5 MG TABLET (FP) PO SCH (16:39)
[2016-08-15] MEDS ORDERED: metFORMIN HCL 500 MG TABLET (FP) ONE (16:39)
[2016-08-15] MEDS: metFORMIN HCL 500 MG TABLET (FP) PO SCH (16:39)
--- NOTE | 2016-08-15 17:25 | PN ---
Progress Note (short form) - Note Progress Note: ID consult dictated imp/reccd Just discharged after admission for influenza A returns the next day with leg pain and numbness reports intermittent bilateral leg numbness, now worse on the right cough with intermittent yellow sputum no hemoptysis no fevers no history of TB history of copd no maintenance steroids now on home oxygen no work place exposures originally from [place] in [place] since 1993 probable ILD perhaps resolving viral pneumonia radiiculopathy agree with chest CT would d/c antibiotics collagen vascular screen f/u with pulmonary
[2016-08-15] MEDS: methylPREDNISolone NA SUCC 40 MG/1 ML VIAL IVPB SCH (17:39)
[2016-08-15 17:55] VITALS: BMI 33.2
--- NOTE | 2016-08-15 19:49 | CONS ---
DATE OF CONSULTATION: DATE OF DICTATION: 08/15/2016 INFECTIOUS DISEASE CONSULTATION REQUESTING PHYSICIAN: Ronit Erazo M.D., Alan Morocho M.D. CONSULTING PHYSICIAN: Zarina May M.D. HISTORY OF PRESENT ILLNESS: This is a 70-year-old woman with a past medical history of COPD, hypertension, hyperlipidemia, she was recently hospitalized from August 09 to August 14 with chest pain and influenza A. She was treated with Tamiflu. Originally she was admitted as observation, and then she was admitted for further evaluation. She was discharged yesterday to home and on home oxygen because her O2 saturation with exercise was 88%. She returns today complaining of right leg numbness and tingling. She notes she has chronic numbness and tingling of both legs, and now she has worsening in her right leg. She denies any fevers or chills. She has a cough with yellow sputum that is unchanged from her discharge. She was not able to fill the prescriptions last night as the pharmacy was closed. She denies any nausea, vomiting, diarrhea, dysuria. She looks quite comfortable sitting in the emergency room. PAST MEDICAL HISTORY: Notable for hypertension, hyperlipidemia, diabetes, hypothyroidism. She had left breast cancer in 1992. She has obstructive sleep apnea syndrome, she uses BiPAP at night. Hypertension, hyperlipidemia, diabetes, diabetic neuropathy, hypothyroidism, and diastolic dysfunction. She is status post mastectomy with chemotherapy in 1992. 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 She has no known drug allergies. MEDICATION: Medications at the time of discharge included DuoNeb, Lipitor, Symbicort, Coreg, gabapentin, cough syrup, and levofloxacin. She had finished pantoprazole and prednisone taper as well as levaquin. She was to continue on her amitriptyline. Her glipizide, metformin, and her levothyroxine, as well as her Namenda. She had completed a 5-day course of Tamiflu for influenza A prior to discharge. FAMILY HISTORY: Noncontributory. SOCIAL HISTORY: She is originally from the [place]. She came here in 1993, she lives alone. She has 4 children. There is no history of any cigarette or substance use. 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 REVIEW OF SYSTEMS: She denies any nausea, vomiting, diarrhea, dysuria, fever or chills. She does note she still has a cough that is intermittently productive of yellow sputum. She has no hemoptysis. PHYSICAL EXAMINATION: General: She is awake and alert. Vital signs: Temperature 98, pulse 66, blood pressure 124/88, respiratory rate 19. She is saturating 95% on 2 L. HEENT: Normocephalic. Eyes are anicteric. She has no thrush. Neck: Supple. Lungs: Clear to auscultation. Heart: Regular rate and rhythm. Abdomen: Soft, nontender. Extremities: Without edema. LABORATORY: White count is 10.4, hemoglobin 14.8, platelets 267. BUN and creatinine are 21 and 0.8. LFTs are normal. CK is 203. Her urinalysis has 1 white cell. Blood cultures done on prior admission are negative and her influenza A was positive. She had a CAT scan of the chest done, ordered by the dietitian assistant, that suggests hypersensitivity pneumonitis without fibrosis, effusion, pneumothorax, or any consolidations, suggestive of interstitial lung disease. IMPRESSION: In summary this is an elderly woman just completed 5-day treatment for influenza A and 6-day course of Levaquin, admitted with left leg numbness and pain and intermittent cough, no shortness of breath, no hemoptysis or fevers, and a CAT scan consistent with probable interstitial lung disease. I suspect she has probable interstitial lung disease with perhaps resolving viral pneumonia with radiculopathy. I would stop her antibiotics, would screen her for collagen vascular disease, sedimentation rate, C-reactive protein, and a rheumatoid factor. Follow with pulmonary. Further recommendations to follow. Gregg [id number] MTDD
[2016-08-15] MEDS ORDERED: METFORMIN HCL PO SCH (22:00)
[2016-08-15] MEDS ORDERED: [UNRECOGNIZED DRUG - OTHER] PO SCH (22:00)
[2016-08-15] MEDS ORDERED: GLIPIZIDE PO SCH (22:00)
[2016-08-15] MEDS: MEMANTINE HCL 5 MG TABLET (UD) PO SCH (22:07)
[2016-08-15] MEDS: CARVEDILOL 3.125 MG TABLET (FP) PO SCH (22:07)
[2016-08-15] MEDS: ATORVASTATIN CA 20 MG TABLET (FP) PO SCH (22:07)
[2016-08-15] MEDS: GABAPENTIN 300 MG CAPSULE (FP) PO SCH (22:07)
[2016-08-15] MEDS ORDERED: PT OWN MED DRAWER 7, Y5N ONE (22:24)
[2016-08-15] MEDS: ALBUTEROL SO4 0.083% IH SOL 2.5 MG/3 ML VIAL.NEB. NEB SCH (22:38)
[2016-08-16] MEDS: methylPREDNISolone NA SUCC 40 MG/1 ML VIAL IVPB SCH ×3 (02:44→17:28)
[2016-08-16] MEDS ORDERED: INSULIN (NOVOLOG) ASPART 100 UNITS/ML 10ML VIAL ONE ×2 (06:27→06:47)
[2016-08-16] MEDS: glipiZIDE 5 MG TABLET (FP) PO SCH ×2 (06:36→17:25)
[2016-08-16] MEDS: metFORMIN HCL 500 MG TABLET (FP) PO SCH ×2 (06:37→17:25)
[2016-08-16] MEDS: INSULIN SLIDING SCALE (NOVOLOG) 1 VIAL SQ SCH ×3 (06:37→17:28)
[2016-08-16 07:03] LABS: BASOPHIL 0.2 % (0-2.0); MCH 29.6 pg (25.7-33.7); MCHC 33.9 g/dl (32.0-36.0); MEAN CELL VOLUME 87.4 fl (80-96); MEAN PLT VOLUME 9.6 fl (7.5-11.1); NEUTROPHILS 89.1 % (42.8-82.8); PLATELET COUNT 252 K/MM3 (134-434); RDW 13.2 % (11.6-15.6); WHITE BLOOD COUNT 10.6 K/mm3 (4.0-10.0)
[2016-08-16 07:40] LABS: ALBUMIN 3.3 g/dl (3.4-5.0); ANION GAP 7 (8-16); CALCIUM 8.8 mg/dL (8.5-10.1); CO2 32 mmol/L (21-32); CREATININE 0.7 mg/dL (0.55-1.02); GLUCOSE,RANDOM 236 mg/dL (74-106); SGOT/AST 15 U/L (15-37); SGPT/ALT 23 U/L (12-78)
[2016-08-16 07:42] LABS: ALK PHOS 72 U/L (45-117); BILIRUBIN,TOTAL 0.5 mg/dL (0.2-1.0); TOT PROT 7.3 g/dl (6.4-8.2)
[2016-08-16] MEDS ORDERED: PT OWN MED DRAWER 7, Y5N ONE ×2 (09:30→21:38)
[2016-08-16] MEDS: CARVEDILOL 3.125 MG TABLET (FP) PO SCH ×2 (09:33→21:42)
[2016-08-16] MEDS: LEVOTHYROXINE NA 100 MCG TABLET (FP) PO SCH (09:33)
[2016-08-16] MEDS: MEMANTINE HCL 5 MG TABLET (UD) PO SCH ×2 (09:33→21:41)
[2016-08-16] MEDS: PANTOPRAZOLE 40 MG TABLET (FP) PO SCH (09:33)
[2016-08-16] MEDS: GABAPENTIN 300 MG CAPSULE (FP) PO SCH ×2 (09:33→21:42)
[2016-08-16] MEDS: ENOXAPARIN NA (PORCINE) 40 MG/0.4 ML DISP.SYRIN SQ SCH (09:33)
[2016-08-16] MEDS: RAMIPRIL 2.5 MG CAPSULE (FP) PO SCH (09:33)
[2016-08-16 09:35] LABS: HIV 1 & 2 AB NEGATIVE; HIV 1 AGp24 NEGATIVE
[2016-08-16] MEDS: BUDESONIDE/FORMETEROL FUMARATE 160/4.5 mcg INHALER IH SCH ×2 (09:35→21:41)
--- NOTE | 2016-08-16 10:13 | PN ---
Progress Note, Physician Chief Complaint: feeling better today still has coughing not SOB no distress - Current Medication List Current Medications: Active Medications Acetaminophen (Tylenol -) 650 mg PO Q6H PRN PRN Reason: FEVER OR PAIN Albuterol Sulfate (Ventolin 0.083% Nebulizer Soln -) 1 amp NEB TID [facility] Last Admin: 08/15/16 22:38 Dose: 1 amp Albuterol Sulfate (Ventolin 0.083% Nebulizer Soln -) 1 amp NEB Q4H PRN PRN Reason: SHORT OF BREATH/WHEEZING Amitriptyline HCl (Elavil -) 25 mg PO HS [facility] Atorvastatin Calcium (Lipitor -) 20 mg PO HS [facility] Last Admin: 08/15/16 22:07 Dose: 20 mg Budesonide/Formoterol Fumarate (Symbicort 160/4.5mcg -) 2 puff IH BID [facility] Last Admin: 08/16/16 09:35 Dose: 2 puff Carvedilol (Coreg -) 3.125 mg PO BID [facility] Last Admin: 08/16/16 09:33 Dose: 3.125 mg Enoxaparin Sodium (Lovenox -) 40 mg SQ DAILY [facility] Last Admin: 08/16/16 09:33 Dose: 40 mg Gabapentin (Neurontin -) 300 mg PO BID [facility] Last Admin: 08/16/16 09:33 Dose: 300 mg Glipizide (Glucotrol -) 2.5 mg PO BIDAC [facility] Last Admin: 08/16/16 06:36 Dose: 2.5 mg Guaifenesin (Robitussin -) 10 ml PO Q8H PRN PRN Reason: COUGH Insulin Aspart (Novolog Vial Sliding Scale -) 1 vial SQ TIDAC [facility] PRN Reason: Protocol Last Admin: 08/16/16 06:37 Dose: 4 units Levothyroxine Sodium (Synthroid -) 100 mcg PO DAILY [facility] Last Admin: 08/16/16 09:33 Dose: 100 mcg Memantine (Namenda -) 5 mg PO BID [facility] Last Admin: 08/16/16 09:33 Dose: 5 mg Metformin HCl (Glucophage -) 250 mg PO BIDAC [facility] Last Admin: 08/16/16 06:37 Dose: 250 mg Methylprednisolone Sodium Succinate (Solu-Medrol -) 60 mg IVPB Q8H-IV [facility] Last Admin: 08/16/16 09:36 Dose: 60 mg Pantoprazole Sodium (Protonix -) 40 mg PO DAILY [facility] Last Admin: 08/16/16 09:33 Dose: 40 mg Ramipril (Altace -) 2.5 mg PO DAILY [facility] Last Admin: 08/16/16 09:33 Dose: 2.5 mg - Objective Vital Signs: Vital Signs Temperature 97.3 F L 08/16/16 06:00 Pulse Rate 52 L 08/16/16 06:00 Respiratory Rate 18 08/16/16 06:00 Blood Pressure 136/49 08/16/16 06:00 O2 Sat by Pulse Oximetry (%) 94 L 08/16/16 05:00 Constitutional: Yes: No Distress, Calm Cardiovascular: Yes: Regular Rate and Rhythm Respiratory: Yes: Diminished, Rhonchi Gastrointestinal: Yes: Normal Bowel Sounds, Soft. No: Distention, Tenderness Edema: No Psychiatric: Yes: Alert, Oriented Labs: CBC, BMP 08/16/16 05:35 08/16/16 05:35 - ....Imaging Cat Scan: Report Reviewed Problem List - Problems (1) Chest discomfort Code(s): R07.89 - OTHER CHEST PAIN (2) Cough Code(s): R05 - COUGH (3) Shortness of breath Code(s): R06.02 - SHORTNESS OF BREATH (4) COPD exacerbation Code(s): J44.1 - CHRONIC OBSTRUCTIVE PULMONARY DISEASE W (ACUTE) EXACERBATION (5) Diabetes Code(s): E11.9 - TYPE 2 DIABETES MELLITUS WITHOUT COMPLICATIONS Qualifiers: Diabetes mellitus type: type 2 Diabetes mellitus complication status: without complication 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 custodial use Qualified Code(s): E11.9 - Type 2 diabetes mellitus without complications (6) Hypothyroidism Code(s): E03.9 - HYPOTHYROIDISM, UNSPECIFIED Qualifiers: Hypothyroidism type: unspecified Qualified Code(s): E03.9 - Hypothyroidism, unspecified (7) Interstitial lung disease Code(s): J84.9 - INTERSTITIAL PULMONARY DISEASE, UNSPECIFIED Assessment/Plan PLAN --on Solumedrol --dc Levaquin per ID -- spoke with ID yesterday and reviewed the CT scan chest -- ?Interstitial lung disease, hypersensitivity pneumonitis -- GI prophylaxis-- Protonix -- spoke with pulmonary-- check sputum studies -- completed Tamiflu -- nebs as needed -- pt on O2
--- NOTE | 2016-08-16 11:21 | PN ---
Progress Note, Physician History of Present Illness: Dyspnea improved, non-productive cough. Chest CT suspicious for hypersensitivity pneumonitis. - Current Medication List Current Medications: Active Medications Acetaminophen (Tylenol -) 650 mg PO Q6H PRN PRN Reason: FEVER OR PAIN Albuterol Sulfate (Ventolin 0.083% Nebulizer Soln -) 1 amp NEB TID [facility] Last Admin: 08/15/16 22:38 Dose: 1 amp Albuterol Sulfate (Ventolin 0.083% Nebulizer Soln -) 1 amp NEB Q4H PRN PRN Reason: SHORT OF BREATH/WHEEZING Amitriptyline HCl (Elavil -) 25 mg PO HS [facility] Atorvastatin Calcium (Lipitor -) 20 mg PO HS [facility] Last Admin: 08/15/16 22:07 Dose: 20 mg Budesonide/Formoterol Fumarate (Symbicort 160/4.5mcg -) 2 puff IH BID [facility] Last Admin: 08/16/16 09:35 Dose: 2 puff Carvedilol (Coreg -) 3.125 mg PO BID [facility] Last Admin: 08/16/16 09:33 Dose: 3.125 mg Enoxaparin Sodium (Lovenox -) 40 mg SQ DAILY [facility] Last Admin: 08/16/16 09:33 Dose: 40 mg Gabapentin (Neurontin -) 300 mg PO BID [facility] Last Admin: 08/16/16 09:33 Dose: 300 mg Glipizide (Glucotrol -) 2.5 mg PO BIDAC [facility] Last Admin: 08/16/16 06:36 Dose: 2.5 mg Guaifenesin (Robitussin -) 10 ml PO Q8H PRN PRN Reason: COUGH Insulin Aspart (Novolog Vial Sliding Scale -) 1 vial SQ TIDAC [facility] PRN Reason: Protocol Last Admin: 08/16/16 06:37 Dose: 4 units Levothyroxine Sodium (Synthroid -) 100 mcg PO DAILY [facility] Last Admin: 08/16/16 09:33 Dose: 100 mcg Memantine (Namenda -) 5 mg PO BID [facility] Last Admin: 08/16/16 09:33 Dose: 5 mg Metformin HCl (Glucophage -) 250 mg PO BIDAC [facility] Last Admin: 08/16/16 06:37 Dose: 250 mg Methylprednisolone Sodium Succinate (Solu-Medrol -) 60 mg IVPB Q8H-IV [facility] Last Admin: 08/16/16 09:36 Dose: 60 mg Pantoprazole Sodium (Protonix -) 40 mg PO DAILY [facility] Last Admin: 08/16/16 09:33 Dose: 40 mg Ramipril (Altace -) 2.5 mg PO DAILY [facility] Last Admin: 08/16/16 09:33 Dose: 2.5 mg - Objective Vital Signs: Vital Signs Temperature 97.3 F L 08/16/16 06:00 Pulse Rate 52 L 08/16/16 06:00 Respiratory Rate 18 08/16/16 06:00 Blood Pressure 136/49 08/16/16 06:00 O2 Sat by Pulse Oximetry (%) 94 L 08/16/16 05:00 Constitutional: Yes: No Distress, Calm Neck: Yes: Supple Cardiovascular: Yes: Regular Rate and Rhythm Respiratory: Yes: Regular, Diminished, On Nasal O2 Gastrointestinal: Yes: Normal Bowel Sounds, Soft, Abdomen, Obese Edema: Yes Edema: LLE: Trace, RLE: Trace Labs: CBC, BMP 08/16/16 05:35 08/16/16 05:35 Problem List - Problems (1) Cough Code(s): R05 - COUGH (2) Hypertension Code(s): I10 - ESSENTIAL (PRIMARY) HYPERTENSION Qualifiers: Hypertension type: essential hypertension Qualified Code(s): I10 - Essential (primary) hypertension (3) Influenza A Code(s): J10.1 - FLU DUE TO OTH IDENT INFLUENZA VIRUS W OTH RESP MANIFEST (4) COPD exacerbation Code(s): J44.1 - CHRONIC OBSTRUCTIVE PULMONARY DISEASE W (ACUTE) EXACERBATION (5) Hyperlipidemia associated with type 2 diabetes mellitus Code(s): E11.69 - TYPE 2 DIABETES MELLITUS WITH OTHER SPECIFIED COMPLICATION E78.5 - HYPERLIPIDEMIA, UNSPECIFIED (6) Hypothyroidism Code(s): E03.9 - HYPOTHYROIDISM, UNSPECIFIED Qualifiers: Hypothyroidism type: unspecified Qualified Code(s): E03.9 - Hypothyroidism, unspecified (7) Interstitial lung disease Code(s): J84.9 - INTERSTITIAL PULMONARY DISEASE, UNSPECIFIED (8) Hypersensitivity pneumonitis Code(s): J67.9 - HYPERSENSITIVITY PNEUMONITIS DUE TO UNSPECIFIED ORGANIC DUST Assessment/Plan 1. COPD exacerbation with recent history of bronchitis and influenza A, possible ILD/hypersensitivity pneumonitis 2. History of subendocardial ischemia 3. HTN 4. Type 2 DM 5. Hypercholesterolemia 6. Lower extremity numbness with underlying history of diabetic neuropathy 7. Hypothyroidism PLAN: 1. Continue Carvedilol 3.125 bid and Ramipril 2.5 qd as tolerated 2. Continue Lipitor 20 qhs 3. Antibiotic course d/nacho, continue bronchodilators, O2 and IV steroids, collagen vascular eval, pulm input pending 4. DVT and GI prophylaxis
--- NOTE | 2016-08-16 11:58 | PN ---
Progress Note (short form) - Note Progress Note: PULMONARY CHART REVIEWED GALLERY OR MUSEUM GUIDE NOTES APPRECIATED DISCUSSED WITH PMD CT CHEST REVIEWED/COMPARED 2016/2013 PATIENT EXAMINED CHRONIC B/L INTERSTITIAL INFILTRATES APPEAR WORSENED SINCE 2013 ETIOLOGY ? WOULD SEND OFF SPUTUM FOR AFB( R/O JAMA)/FUNGAL STAINS MAY ULTIMATELY REQUIRE FOB/BAL AGREE WITH STEROIDS FOR NOW/BRONCHODILATORS/O2 REQUIRED WILL FOLLOW Justen ORR MD
[2016-08-16] MEDS: ALBUTEROL SO4 0.083% IH SOL 2.5 MG/3 ML VIAL.NEB. NEB SCH ×2 (13:57→22:10)
[2016-08-16] MEDS: AMITRIPTYLINE HCL 25 MG TABLET (FP) PO SCH (21:41)
[2016-08-16] MEDS: ATORVASTATIN CA 20 MG TABLET (FP) PO SCH (21:42)
[2016-08-17] MEDS: methylPREDNISolone NA SUCC 40 MG/1 ML VIAL IVPB SCH ×3 (01:43→17:24)
[2016-08-17] MEDS: ALBUTEROL SO4 0.083% IH SOL 2.5 MG/3 ML VIAL.NEB. NEB SCH ×3 (06:34→22:45)
[2016-08-17] MEDS ORDERED: INSULIN (NOVOLOG) ASPART 100 UNITS/ML 10ML VIAL ONE (06:35)
[2016-08-17] MEDS: glipiZIDE 5 MG TABLET (FP) PO SCH ×2 (06:40→17:24)
[2016-08-17] MEDS: INSULIN SLIDING SCALE (NOVOLOG) 1 VIAL SQ SCH ×3 (06:40→17:25)
[2016-08-17] MEDS: metFORMIN HCL 500 MG TABLET (FP) PO SCH ×2 (06:40→17:24)
--- NOTE | 2016-08-17 09:55 | PN ---
Progress Note, Physician Chief Complaint: Complains of dizziness History of Present Illness: Patient was seen and examined. Awake and alert. Chart was reviewed Denies chest pain, SOB or palpitations Complains of dizziness - Current Medication List Current Medications: Active Medications Acetaminophen (Tylenol -) 650 mg PO Q6H PRN PRN Reason: FEVER OR PAIN Albuterol Sulfate (Ventolin 0.083% Nebulizer Soln -) 1 amp NEB TID [facility] Last Admin: 08/17/16 06:34 Dose: 1 amp Albuterol Sulfate (Ventolin 0.083% Nebulizer Soln -) 1 amp NEB Q4H PRN PRN Reason: SHORT OF BREATH/WHEEZING Amitriptyline HCl (Elavil -) 25 mg PO HS [facility] Last Admin: 08/16/16 21:41 Dose: 25 mg Atorvastatin Calcium (Lipitor -) 20 mg PO HS [facility] Last Admin: 08/16/16 21:42 Dose: 20 mg Budesonide/Formoterol Fumarate (Symbicort 160/4.5mcg -) 2 puff IH BID [facility] Last Admin: 08/16/16 21:41 Dose: 2 puff Carvedilol (Coreg -) 3.125 mg PO BID [facility] Last Admin: 08/16/16 21:42 Dose: Not Given Enoxaparin Sodium (Lovenox -) 40 mg SQ DAILY [facility] Last Admin: 08/16/16 09:33 Dose: 40 mg Gabapentin (Neurontin -) 300 mg PO BID [facility] Last Admin: 08/16/16 21:42 Dose: 300 mg Glipizide (Glucotrol -) 2.5 mg PO BIDAC [facility] Last Admin: 08/17/16 06:40 Dose: 2.5 mg Guaifenesin (Robitussin -) 10 ml PO Q8H PRN PRN Reason: COUGH Insulin Aspart (Novolog Vial Sliding Scale -) 1 vial SQ TIDAC [facility] PRN Reason: Protocol Last Admin: 08/17/16 06:40 Dose: 6 units Levothyroxine Sodium (Synthroid -) 100 mcg PO DAILY [facility] Last Admin: 08/16/16 09:33 Dose: 100 mcg Memantine (Namenda -) 5 mg PO BID [facility] Last Admin: 08/16/16 21:41 Dose: 5 mg Metformin HCl (Glucophage -) 250 mg PO BIDAC [facility] Last Admin: 08/17/16 06:40 Dose: 250 mg Methylprednisolone Sodium Succinate (Solu-Medrol -) 60 mg IVPB Q8H-IV [facility] Last Admin: 08/17/16 01:43 Dose: 60 mg Pantoprazole Sodium (Protonix -) 40 mg PO DAILY [facility] Last Admin: 08/16/16 09:33 Dose: 40 mg Ramipril (Altace -) 2.5 mg PO DAILY [facility] Last Admin: 08/16/16 09:33 Dose: 2.5 mg - Objective Vital Signs: Vital Signs Temperature 97.8 F 08/17/16 06:00 Pulse Rate 77 08/17/16 06:00 Respiratory Rate 18 08/17/16 06:00 Blood Pressure 117/48 08/17/16 06:00 O2 Sat by Pulse Oximetry (%) 94 L 08/16/16 21:00 Neck: Yes: Supple Cardiovascular: Yes: Regular Rate and Rhythm, S1, S2 Respiratory: Yes: Diminished Gastrointestinal: Yes: Normal Bowel Sounds, Soft. No: Tenderness Edema: No Additional Findings/Remarks: Review of Systems Cardiovascular: As noted above, (+) chest pain Respiratory: denies: reports: Cough, shortness of breath Gastrointestinal: denies: Nausea, Vomiting, Diarrhea, Constipation or Abdominal Discomfort Musculoskeletal: No Symptoms Reported Endocrine: No Symptoms Reported Neuro: (+) dizziness Labs: CBC, BMP 08/16/16 05:35 08/16/16 05:35 Problem List - Problems (1) Chest discomfort Code(s): R07.89 - OTHER CHEST PAIN (2) Hypertension Code(s): I10 - ESSENTIAL (PRIMARY) HYPERTENSION Qualifiers: Hypertension type: essential hypertension Qualified Code(s): I10 - Essential (primary) hypertension (3) Influenza A Code(s): J10.1 - FLU DUE TO OTH IDENT INFLUENZA VIRUS W OTH RESP MANIFEST (4) Subendocardial ischemia Code(s): I24.8 - OTHER FORMS OF ACUTE ISCHEMIC HEART DISEASE (5) COPD exacerbation Code(s): J44.1 - CHRONIC OBSTRUCTIVE PULMONARY DISEASE W (ACUTE) EXACERBATION (6) Diabetes Code(s): E11.9 - TYPE 2 DIABETES MELLITUS WITHOUT COMPLICATIONS Qualifiers: Diabetes mellitus type: type 2 Diabetes mellitus complication status: without complication Diabetes mellitus long lines operator insulin use: without long lines operator use Qualified Code(s): E11.9 - Type 2 diabetes mellitus without complications (7) Hypothyroidism Code(s): E03.9 - HYPOTHYROIDISM, UNSPECIFIED Qualifiers: Hypothyroidism type: unspecified Qualified Code(s): E03.9 - Hypothyroidism, unspecified (8) Hypercholesterolemia Code(s): E78.0 - PURE HYPERCHOLESTEROLEMIA * DO NOT USE * Assessment/Plan 1. COPD exacerbation with recent history of bronchitis and influenza A 2. History of subendocardial ischemia 3. HTN 4. Type 2 DM 5. Hypercholesterolemia 6. Lower extremity numbness with underlying history of diabetic neuropathy - improved 7. Hypothyroidism PLAN: 1. Continue Carvedilol and Ramipril as tolerated 2. Continue Lipitor 3. Continue antibiotic coverage, bronchodilators, O2 and steroids taper as per pulmonary 4. DVT prophylaxis 5. Cardiac work up can be done as outpatient Further plans are to follow Jackson Purvis MD
[2016-08-17] MEDS ORDERED: PT OWN MED DRAWER 7, Y5N ONE ×2 (09:59→22:13)
[2016-08-17] MEDS: RAMIPRIL 2.5 MG CAPSULE (FP) PO SCH (10:15)
[2016-08-17] MEDS: LEVOTHYROXINE NA 100 MCG TABLET (FP) PO SCH (10:15)
[2016-08-17] MEDS: PANTOPRAZOLE 40 MG TABLET (FP) PO SCH (10:15)
[2016-08-17] MEDS: MEMANTINE HCL 5 MG TABLET (UD) PO SCH ×2 (10:15→22:16)
[2016-08-17] MEDS: GABAPENTIN 300 MG CAPSULE (FP) PO SCH ×2 (10:15→22:16)
[2016-08-17] MEDS: CARVEDILOL 3.125 MG TABLET (FP) PO SCH ×2 (10:15→22:15)
[2016-08-17] MEDS: BUDESONIDE/FORMETEROL FUMARATE 160/4.5 mcg INHALER IH SCH ×2 (10:16→22:18)
[2016-08-17] MEDS: ENOXAPARIN NA (PORCINE) 40 MG/0.4 ML DISP.SYRIN SQ SCH (10:17)
--- NOTE | 2016-08-17 11:01 | PN ---
Progress Note, Physician Chief Complaint: not coughing much today feels better decreased SOB no chest pain had some dizziness today morning but went away -- no events noted on tele - Current Medication List Current Medications: Active Medications Acetaminophen (Tylenol -) 650 mg PO Q6H PRN PRN Reason: FEVER OR PAIN Albuterol Sulfate (Ventolin 0.083% Nebulizer Soln -) 1 amp NEB TID [facility] Last Admin: 08/17/16 06:34 Dose: 1 amp Albuterol Sulfate (Ventolin 0.083% Nebulizer Soln -) 1 amp NEB Q4H PRN PRN Reason: SHORT OF BREATH/WHEEZING Amitriptyline HCl (Elavil -) 25 mg PO HS [facility] Last Admin: 08/16/16 21:41 Dose: 25 mg Atorvastatin Calcium (Lipitor -) 20 mg PO HS [facility] Last Admin: 08/16/16 21:42 Dose: 20 mg Budesonide/Formoterol Fumarate (Symbicort 160/4.5mcg -) 2 puff IH BID [facility] Last Admin: 08/17/16 10:16 Dose: 2 puff Carvedilol (Coreg -) 3.125 mg PO BID [facility] Last Admin: 08/17/16 10:15 Dose: 3.125 mg Enoxaparin Sodium (Lovenox -) 40 mg SQ DAILY [facility] Last Admin: 08/17/16 10:17 Dose: 40 mg Gabapentin (Neurontin -) 300 mg PO BID [facility] Last Admin: 08/17/16 10:15 Dose: 300 mg Glipizide (Glucotrol -) 2.5 mg PO BIDAC [facility] Last Admin: 08/17/16 06:40 Dose: 2.5 mg Guaifenesin (Robitussin -) 10 ml PO Q8H PRN PRN Reason: COUGH Insulin Aspart (Novolog Vial Sliding Scale -) 1 vial SQ TIDAC [facility] PRN Reason: Protocol Last Admin: 08/17/16 06:40 Dose: 6 units Levothyroxine Sodium (Synthroid -) 100 mcg PO DAILY [facility] Last Admin: 08/17/16 10:15 Dose: 100 mcg Memantine (Namenda -) 5 mg PO BID [facility] Last Admin: 08/17/16 10:15 Dose: 5 mg Metformin HCl (Glucophage -) 250 mg PO BIDAC [facility] Last Admin: 08/17/16 06:40 Dose: 250 mg Methylprednisolone Sodium Succinate (Solu-Medrol -) 60 mg IVPB Q8H-IV [facility] Last Admin: 08/17/16 10:07 Dose: 60 mg Pantoprazole Sodium (Protonix -) 40 mg PO DAILY [facility] Last Admin: 08/17/16 10:15 Dose: 40 mg Ramipril (Altace -) 2.5 mg PO DAILY [facility] Last Admin: 08/17/16 10:15 Dose: 2.5 mg - Objective Vital Signs: Vital Signs Temperature 97.8 F 08/17/16 06:00 Pulse Rate 77 08/17/16 06:00 Respiratory Rate 18 08/17/16 06:00 Blood Pressure 117/48 08/17/16 06:00 O2 Sat by Pulse Oximetry (%) 94 L 08/16/16 21:00 Constitutional: Yes: No Distress, Calm Cardiovascular: Yes: Regular Rate and Rhythm Respiratory: Yes: Diminished, Rhonchi (decreased) Gastrointestinal: Yes: Normal Bowel Sounds, Soft, Abdomen, Obese. No: Distention, Tenderness Edema: No Psychiatric: Yes: Alert, Oriented Labs: CBC, BMP 08/16/16 05:35 08/16/16 05:35 - ....Imaging X-ray: Report Reviewed (spondylosis on xray) Problem List - Problems (1) Chest discomfort Code(s): R07.89 - OTHER CHEST PAIN (2) Cough Code(s): R05 - COUGH (3) Shortness of breath Code(s): R06.02 - SHORTNESS OF BREATH (4) COPD exacerbation Code(s): J44.1 - CHRONIC OBSTRUCTIVE PULMONARY DISEASE W (ACUTE) EXACERBATION (5) Diabetes Code(s): E11.9 - TYPE 2 DIABETES MELLITUS WITHOUT COMPLICATIONS Qualifiers: Diabetes mellitus type: type 2 Diabetes mellitus complication status: without complication Diabetes mellitus correction insulin use: without terminal makeup operator use Qualified Code(s): E11.9 - Type 2 diabetes mellitus without complications (6) Hypothyroidism Code(s): E03.9 - HYPOTHYROIDISM, UNSPECIFIED Qualifiers: Hypothyroidism type: unspecified Qualified Code(s): E03.9 - Hypothyroidism, unspecified (7) Interstitial lung disease Code(s): J84.9 - INTERSTITIAL PULMONARY DISEASE, UNSPECIFIED Assessment/Plan PLAN --on Solumedrol-- may taper per Pulmonary --off antibiotics -- GI prophylaxis-- Protonix -- PT eval -- numbness on leg better -- nebs as needed -- pt on O2 -- connective tissue disorder work up ongoing--labs pending
--- NOTE | 2016-08-17 14:00 | PN ---
Progress Note, Physician History of Present Illness: Mildly dyspneic OOB in chair on nasal cannula + cough- white sputum afebrile - Current Medication List Current Medications: Active Medications Acetaminophen (Tylenol -) 650 mg PO Q6H PRN PRN Reason: FEVER OR PAIN Albuterol Sulfate (Ventolin 0.083% Nebulizer Soln -) 1 amp NEB TID [facility] Last Admin: 08/17/16 06:34 Dose: 1 amp Albuterol Sulfate (Ventolin 0.083% Nebulizer Soln -) 1 amp NEB Q4H PRN PRN Reason: SHORT OF BREATH/WHEEZING Amitriptyline HCl (Elavil -) 25 mg PO HS [facility] Last Admin: 08/16/16 21:41 Dose: 25 mg Atorvastatin Calcium (Lipitor -) 20 mg PO [facility] Last Admin: 08/16/16 21:42 Dose: 20 mg Budesonide/Formoterol Fumarate (Symbicort 160/4.5mcg -) 2 puff IH BID [facility] Last Admin: 08/17/16 10:16 Dose: 2 puff Carvedilol (Coreg -) 3.125 mg PO BID [facility] Last Admin: 08/17/16 10:15 Dose: 3.125 mg Enoxaparin Sodium (Lovenox -) 40 mg SQ DAILY [facility] Last Admin: 08/17/16 10:17 Dose: 40 mg Gabapentin (Neurontin -) 300 mg PO BID [facility] Last Admin: 08/17/16 10:15 Dose: 300 mg Glipizide (Glucotrol -) 2.5 mg PO BIDAC [facility] Last Admin: 08/17/16 06:40 Dose: 2.5 mg Guaifenesin (Robitussin -) 10 ml PO Q8H PRN PRN Reason: COUGH Insulin Aspart (Novolog Vial Sliding Scale -) 1 vial SQ TIDAC [facility] PRN Reason: Protocol Last Admin: 08/17/16 12:05 Dose: 6 units Levothyroxine Sodium (Synthroid -) 100 mcg PO DAILY [facility] Last Admin: 08/17/16 10:15 Dose: 100 mcg Memantine (Namenda -) 5 mg PO BID [facility] Last Admin: 08/17/16 10:15 Dose: 5 mg Metformin HCl (Glucophage -) 250 mg PO BIDAC [facility] Last Admin: 08/17/16 06:40 Dose: 250 mg Methylprednisolone Sodium Succinate (Solu-Medrol -) 60 mg IVPB Q8H-IV [facility] Last Admin: 08/17/16 10:07 Dose: 60 mg Pantoprazole Sodium (Protonix -) 40 mg PO DAILY [facility] Last Admin: 08/17/16 10:15 Dose: 40 mg Ramipril (Altace -) 2.5 mg PO DAILY [facility] Last Admin: 08/17/16 10:15 Dose: 2.5 mg - Objective Vital Signs: Vital Signs Temperature 98.6 F 08/17/16 10:00 Pulse Rate 63 08/17/16 10:00 Respiratory Rate 18 08/17/16 10:00 Blood Pressure 150/66 08/17/16 10:00 O2 Sat by Pulse Oximetry (%) 95 08/17/16 09:00 Constitutional: Yes: No Distress, Obese Cardiovascular: Yes: Regular Rate and Rhythm, S1, S2 Respiratory: Yes: Other (+ scatterred rhonchi, crepitations at bases bilat) Gastrointestinal: Yes: Normal Bowel Sounds, Soft, Abdomen, Obese Edema: Yes Labs: CBC, BMP 08/16/16 05:35 08/16/16 05:35 Assessment/Plan Probable ILD Off antibiotics sputum for RONNIE
--- NOTE | 2016-08-17 14:23 | EKG ---
Test Reason : Blood Pressure : / mmHG Vent. Rate : 062 BPM Atrial Rate : 062 BPM P-R Int : 148 ms QRS Dur : 124 ms QT Int : 390 ms P-R-T Axes : 028 -56 058 degrees QTc Int : 395 ms NORMAL SINUS RHYTHM LEFT ANTERIOR FASCICULAR BLOCK ABNORMAL ECG WHEN COMPARED WITH ECG OF 09-AUG-2016 15:32, NO SIGNIFICANT CHANGE WAS FOUND Confirmed by YULISSA RATLIFF, KARTIK ([id number]) on 08/17/2016 2:23:16 PM Referred By: Confirmed By:KARTIK DUENAS MD
--- NOTE | 2016-08-17 14:45 | PN ---
Progress Note (short form) - Note Progress Note: PULMONARY States breathing is better today. No fevers or chills. +nonproductive cough, no wheezing. Last Vital Signs Temp Pulse Resp BP Pulse Ox 98.6 F 63 18 150/66 95 08/17/16 10:00 08/17/16 10:00 08/17/16 10:00 08/17/16 10:00 08/17/16 09:00 Gen: NAD in chair Heart: RRR Lung: bibasilar rales Abd: soft, nontender Ext: no edema CBC, BMP 08/16/16 05:35 08/16/16 05:35 Active Medications Acetaminophen (Tylenol -) 650 mg PO Q6H PRN PRN Reason: FEVER OR PAIN Albuterol Sulfate (Ventolin 0.083% Nebulizer Soln -) 1 amp NEB TID [facility] Last Admin: 08/17/16 06:34 Dose: 1 amp Albuterol Sulfate (Ventolin 0.083% Nebulizer Soln -) 1 amp NEB Q4H PRN PRN Reason: SHORT OF BREATH/WHEEZING Amitriptyline HCl (Elavil -) 25 mg PO HS [facility] Last Admin: 08/16/16 21:41 Dose: 25 mg Atorvastatin Calcium (Lipitor -) 20 mg PO HS [facility] Last Admin: 08/16/16 21:42 Dose: 20 mg Budesonide/Formoterol Fumarate (Symbicort 160/4.5mcg -) 2 puff IH BID [facility] Last Admin: 08/17/16 10:16 Dose: 2 puff Carvedilol (Coreg -) 3.125 mg PO BID [facility] Last Admin: 08/17/16 10:15 Dose: 3.125 mg Enoxaparin Sodium (Lovenox -) 40 mg SQ DAILY [facility] Last Admin: 08/17/16 10:17 Dose: 40 mg Gabapentin (Neurontin -) 300 mg PO BID [facility] Last Admin: 08/17/16 10:15 Dose: 300 mg Glipizide (Glucotrol -) 2.5 mg PO BIDAC [facility] Last Admin: 08/17/16 06:40 Dose: 2.5 mg Guaifenesin (Robitussin -) 10 ml PO Q8H PRN PRN Reason: COUGH Insulin Aspart (Novolog Vial Sliding Scale -) 1 vial SQ TIDAC [facility] PRN Reason: Protocol Last Admin: 08/17/16 12:05 Dose: 6 units Levothyroxine Sodium (Synthroid -) 100 mcg PO DAILY [facility] Last Admin: 08/17/16 10:15 Dose: 100 mcg Memantine (Namenda -) 5 mg PO BID [facility] Last Admin: 08/17/16 10:15 Dose: 5 mg Metformin HCl (Glucophage -) 250 mg PO BIDAC [facility] Last Admin: 08/17/16 06:40 Dose: 250 mg Methylprednisolone Sodium Succinate (Solu-Medrol -) 60 mg IVPB Q8H-IV [facility] Last Admin: 08/17/16 10:07 Dose: 60 mg Pantoprazole Sodium (Protonix -) 40 mg PO DAILY [facility] Last Admin: 08/17/16 10:15 Dose: 40 mg Ramipril (Altace -) 2.5 mg PO DAILY [facility] Last Admin: 08/17/16 10:15 Dose: 2.5 mg A/P Acute COPD Exacerbation Influenza A HTN DM Hypercholesterolemia - will decrease medrol to 40mg q8h - inhaled bronchodilators - O2 as needed - continue cardiac meds - DVT prophylaxis
[2016-08-17] MEDS: AMITRIPTYLINE HCL 25 MG TABLET (FP) PO SCH (22:16)
[2016-08-17] MEDS: ATORVASTATIN CA 20 MG TABLET (FP) PO SCH (22:17)
[2016-08-18] MEDS: methylPREDNISolone NA SUCC 40 MG/1 ML VIAL IVPB SCH ×3 (01:05→17:54)
[2016-08-18] MEDS ORDERED: INSULIN (NOVOLOG) ASPART 100 UNITS/ML 10ML VIAL ONE ×2 (06:50→16:58)
[2016-08-18] MEDS: glipiZIDE 5 MG TABLET (FP) PO SCH ×2 (06:51→17:06)
[2016-08-18] MEDS: metFORMIN HCL 500 MG TABLET (FP) PO SCH ×2 (06:51→17:06)
[2016-08-18] MEDS: INSULIN SLIDING SCALE (NOVOLOG) 1 VIAL SQ SCH ×3 (06:51→17:06)
[2016-08-18] MEDS: ALBUTEROL SO4 0.083% IH SOL 2.5 MG/3 ML VIAL.NEB. NEB SCH ×3 (07:02→21:52)
[2016-08-18] MEDS ORDERED: PT OWN MED DRAWER 7, Y5N ONE ×2 (09:46→22:01)
[2016-08-18] MEDS: LEVOTHYROXINE NA 100 MCG TABLET (FP) PO SCH (09:48)
[2016-08-18] MEDS: CARVEDILOL 3.125 MG TABLET (FP) PO SCH ×2 (09:48→22:06)
[2016-08-18] MEDS: GABAPENTIN 300 MG CAPSULE (FP) PO SCH ×2 (09:48→22:05)
[2016-08-18] MEDS: PANTOPRAZOLE 40 MG TABLET (FP) PO SCH (09:48)
[2016-08-18] MEDS: ENOXAPARIN NA (PORCINE) 40 MG/0.4 ML DISP.SYRIN SQ SCH (09:48)
[2016-08-18] MEDS: BUDESONIDE/FORMETEROL FUMARATE 160/4.5 mcg INHALER IH SCH ×2 (09:49→22:07)
[2016-08-18] MEDS: RAMIPRIL 2.5 MG CAPSULE (FP) PO SCH (09:49)
[2016-08-18] MEDS: MEMANTINE HCL 5 MG TABLET (UD) PO SCH ×2 (09:49→22:05)
--- NOTE | 2016-08-18 10:33 | PN ---
Progress Note, Physician History of Present Illness: Dyspnea improved, non-productive cough resolved. - Current Medication List Current Medications: Active Medications Acetaminophen (Tylenol -) 650 mg PO Q6H PRN PRN Reason: FEVER OR PAIN Albuterol Sulfate (Ventolin 0.083% Nebulizer Soln -) 1 amp NEB TID [facility] [place] Last Admin: 08/18/16 07:02 Dose: 1 amp Albuterol Sulfate (Ventolin 0.083% Nebulizer Soln -) 1 amp NEB Q4H PRN PRN Reason: SHORT OF BREATH/WHEEZING Last Admin: 08/17/16 17:45 Dose: 1 amp Amitriptyline HCl (Elavil -) 25 mg PO HS [facility] [place] Last Admin: 08/17/16 22:16 Dose: 25 mg Atorvastatin Calcium (Lipitor -) 20 mg PO [facility] Last Admin: 08/17/16 22:17 Dose: 20 mg Budesonide/Formoterol Fumarate (Symbicort 160/4.5mcg -) 2 puff IH BID [facility] Last Admin: 08/18/16 09:49 Dose: 2 puff Carvedilol (Coreg -) 3.125 mg PO BID [facility] [place] Last Admin: 08/18/16 09:48 Dose: 3.125 mg Enoxaparin Sodium (Lovenox -) 40 mg SQ DAILY [facility] Last Admin: 08/18/16 09:48 Dose: 40 mg Gabapentin (Neurontin -) 300 mg PO BID [facility] Last Admin: 08/18/16 09:48 Dose: 300 mg Glipizide (Glucotrol -) 2.5 mg PO BIDAC [facility] [place] Last Admin: 08/18/16 06:51 Dose: 2.5 mg Guaifenesin (Robitussin -) 10 ml PO Q8H PRN PRN Reason: COUGH Insulin Aspart (Novolog Vial Sliding Scale -) 1 vial SQ TIDAC [facility] [place] PRN Reason: Protocol Last Admin: 08/18/16 06:51 Dose: 6 units Levothyroxine Sodium (Synthroid -) 100 mcg PO DAILY [facility] Last Admin: 08/18/16 09:48 Dose: 100 mcg Memantine (Namenda -) 5 mg PO BID [facility] Last Admin: 08/18/16 09:49 Dose: 5 mg Metformin HCl (Glucophage -) 250 mg PO BIDAC [facility] [place] Last Admin: 08/18/16 06:51 Dose: 250 mg Methylprednisolone Sodium Succinate (Solu-Medrol -) 40 mg IVPB Q8H-IV [facility] Last Admin: 08/18/16 01:05 Dose: 40 mg Pantoprazole Sodium (Protonix -) 40 mg PO DAILY [facility] [place] Last Admin: 08/18/16 09:48 Dose: 40 mg Ramipril (Altace -) 2.5 mg PO DAILY [facility] Last Admin: 08/18/16 09:49 Dose: 2.5 mg - Objective Vital Signs: Vital Signs Temperature 97.7 F 08/18/16 06:00 Pulse Rate 57 L 08/18/16 06:00 Respiratory Rate 18 08/18/16 06:00 Blood Pressure 141/66 08/18/16 06:00 O2 Sat by Pulse Oximetry (%) 96 08/17/16 20:23 Constitutional: Yes: No Distress, Calm Neck: Yes: Supple Cardiovascular: Yes: Regular Rate and Rhythm Respiratory: Yes: Regular, Diminished Gastrointestinal: Yes: Normal Bowel Sounds, Soft, Abdomen, Obese Edema: No Labs: CBC, BMP 08/16/16 05:35 08/16/16 05:35 Problem List - Problems (1) Cough Code(s): R05 - COUGH (2) Hypertension Code(s): I10 - ESSENTIAL (PRIMARY) HYPERTENSION Qualifiers: Hypertension type: essential hypertension Qualified Code(s): I10 - Essential (primary) hypertension (3) Influenza A Code(s): J10.1 - FLU DUE TO OTH IDENT INFLUENZA VIRUS W OTH RESP MANIFEST (4) COPD exacerbation Code(s): J44.1 - CHRONIC OBSTRUCTIVE PULMONARY DISEASE W (ACUTE) EXACERBATION (5) Hyperlipidemia associated with type 2 diabetes mellitus Code(s): E11.69 - TYPE 2 DIABETES MELLITUS WITH OTHER SPECIFIED COMPLICATION E78.5 - HYPERLIPIDEMIA, UNSPECIFIED (6) Hypothyroidism Code(s): E03.9 - HYPOTHYROIDISM, UNSPECIFIED Qualifiers: Hypothyroidism type: unspecified Qualified Code(s): E03.9 - Hypothyroidism, unspecified (7) Interstitial lung disease Code(s): J84.9 - INTERSTITIAL PULMONARY DISEASE, UNSPECIFIED Assessment/Plan 1. Acute COPD exacerbation improving 2. History of subendocardial ischemia 3. HTN 4. Type 2 DM 5. Hypercholesterolemia 6. Lower extremity numbness with underlying history of diabetic neuropathy 7. Hypothyroidism PLAN: 1. Continue Carvedilol 3.125 bid and Ramipril 2.5 qd 2. Continue Lipitor 20 qhs 3. Off antibiotics, continue bronchodilators, O2 and IV steroid taper 4. DVT and GI prophylaxis
--- NOTE | 2016-08-18 10:45 | PN ---
Progress Note (short form) - Note Progress Note: Subjective Patient seen and examined. Chart reviewed. Patient feels better Decreased SOB Denies cp Objective Last Vital Signs Temp Pulse Resp BP Pulse Ox 97.7 F 57 L 18 141/66 96 08/18/16 06:00 08/18/16 06:00 08/18/16 06:00 08/18/16 06:00 08/17/16 20:23 Problem List - Problems (1) Chest discomfort Code(s): R07.89 - OTHER CHEST PAIN (2) Cough Code(s): R05 - COUGH (3) Shortness of breath Code(s): R06.02 - SHORTNESS OF BREATH (4) COPD exacerbation Code(s): J44.1 - CHRONIC OBSTRUCTIVE PULMONARY DISEASE W (ACUTE) EXACERBATION (5) Diabetes Code(s): E11.9 - TYPE 2 DIABETES MELLITUS WITHOUT COMPLICATIONS Qualifiers: Diabetes mellitus type: type 2 Diabetes mellitus complication status: without complication Diabetes mellitus petroleum terminal plant operator insulin use: without petroleum terminal 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 Qualified Code(s): E11.9 - Type 2 diabetes mellitus without complications (6) Hypothyroidism Code(s): E03.9 - HYPOTHYROIDISM, UNSPECIFIED Qualifiers: Hypothyroidism type: unspecified Qualified Code(s): E03.9 - Hypothyroidism, unspecified (7) Interstitial lung disease Code(s): J84.9 - INTERSTITIAL PULMONARY DISEASE, UNSPECIFIED Labs: CBC, BMP 08/16/16 05:35 08/16/16 05:35 Physical Exam Constitutional: Yes: No Distress, Calm Cardiovascular: Yes: Regular Rate and Rhythm Respiratory: Yes: Rales at bases Gastrointestinal: Yes: Normal Bowel Sounds, Soft, Abdomen, Obese. No: Distention, Tenderness Edema: No Psychiatric: Yes: Alert, Oriented Assessment and Plan Continue steroids Taper slowly Nebulizer treatment Meds reviewed Blood sugar reviewed uncontrolled due to steroids Add basal insulin Monitor Will follow Documentation prepared by Windy Dutta, acting as a biomedical electronics technician for Veronica Carroll MD.
--- NOTE | 2016-08-18 11:34 | PN ---
Progress Note (short form) - Note Progress Note: PULMONARY CHART REVIEWED ASSISTANT PROFESSOR OF CHEMISTRY/PMD NOTES APPRECIATED CT CHEST REVIEWED/COMPARED 2016/2013 PATIENT EXAMINED CHRONIC B/L INTERSTITIAL INFILTRATES APPEAR WORSENED SINCE 2013 ETIOLOGY ? WOULD SEND OFF SPUTUM FOR AFB( R/O JAMA)/FUNGAL STAINS MAY ULTIMATELY REQUIRE FOB/BAL AGREE WITH STEROIDS FOR NOW/BRONCHODILATORS/O2 REQUIRED WILL FOLLOW Justen ORR MD
[2016-08-18] MEDS: ATORVASTATIN CA 20 MG TABLET (FP) PO SCH (22:05)
[2016-08-18] MEDS: AMITRIPTYLINE HCL 25 MG TABLET (FP) PO SCH (22:06)
[2016-08-18] MEDS: INSULIN DETEMIR 100 UNITS/ML MDV SQ SCH (22:06)
[2016-08-19 00:06] LABS: C-ANCA <1:20 titer (Neg:<1:20); MYELOPEROXIDASE ANTIBODY <9.0 U/mL (0.0-9.0); P-ANCA <1:20 titer (Neg:<1:20); PROTEINASE-3 ANTIBODY <3.5 U/mL (0.0-3.5)
[2016-08-19] MEDS: methylPREDNISolone NA SUCC 40 MG/1 ML VIAL IVPB SCH ×3 (01:51→17:44)
[2016-08-19] MEDS ORDERED: INSULIN (NOVOLOG) ASPART 100 UNITS/ML 10ML VIAL ONE ×3 (06:00→17:16)
[2016-08-19] MEDS: INSULIN SLIDING SCALE (NOVOLOG) 1 VIAL SQ SCH ×3 (06:03→17:43)
[2016-08-19] MEDS: metFORMIN HCL 500 MG TABLET (FP) PO SCH ×2 (06:03→17:42)
[2016-08-19] MEDS: glipiZIDE 5 MG TABLET (FP) PO SCH ×2 (06:03→17:43)
--- NOTE | 2016-08-19 07:04 | PN ---
Progress Note (short form) - Note Progress Note: Chief Complaint: Events noted, notes reviewed, denies any chest pain but dyspnea persists although improving History of Present Illness: Seen and examined on telemetry. Events noted, notes reviewed, denies any chest pain but dyspnea persists although improving Echocardiography performed 08/11/16 revealed normal LV size and function, mild MR , AR and TR, MAC and AV sclerosis - Current Medication List Current Medications Acetaminophen (Tylenol -) 650 mg PO Q6H PRN PRN Reason: FEVER OR PAIN Albuterol Sulfate (Ventolin 0.083% Nebulizer Soln -) 1 amp NEB TID [facility] Last Admin: 08/18/16 21:52 Dose: 1 amp Albuterol Sulfate (Ventolin 0.083% Nebulizer Soln -) 1 amp NEB Q4H PRN PRN Reason: SHORT OF BREATH/WHEEZING Last Admin: 08/17/16 17:45 Dose: 1 amp Amitriptyline HCl (Elavil -) 25 mg PO HS [facility] Last Admin: 08/18/16 22:06 Dose: 25 mg Atorvastatin Calcium (Lipitor -) 20 mg PO HS [facility] Last Admin: 08/18/16 22:05 Dose: 20 mg Budesonide/Formoterol Fumarate (Symbicort 160/4.5mcg -) 2 puff IH BID [facility] Last Admin: 08/18/16 22:07 Dose: 2 puff Carvedilol (Coreg -) 3.125 mg PO BID [facility] Last Admin: 08/18/16 22:06 Dose: 3.125 mg Enoxaparin Sodium (Lovenox -) 40 mg SQ DAILY [facility] Last Admin: 08/18/16 09:48 Dose: 40 mg Gabapentin (Neurontin -) 300 mg PO BID [facility] Last Admin: 08/18/16 22:05 Dose: 300 mg Glipizide (Glucotrol -) 2.5 mg PO BIDAC [facility] Last Admin: 08/19/16 06:03 Dose: 2.5 mg Guaifenesin (Robitussin -) 10 ml PO Q8H PRN PRN Reason: COUGH Insulin Aspart (Novolog Vial Sliding Scale -) 1 vial SQ TIDAC [facility] PRN Reason: Protocol Last Admin: 08/19/16 06:03 Dose: 6 units Insulin Detemir (Levemir Vial) 10 units SQ [facility] Last Admin: 08/18/16 22:06 Dose: 10 units Levothyroxine Sodium (Synthroid -) 100 mcg PO DAILY [facility] Last Admin: 08/18/16 09:48 Dose: 100 mcg Memantine (Namenda -) 5 mg PO BID [facility] Last Admin: 08/18/16 22:05 Dose: 5 mg Metformin HCl (Glucophage -) 250 mg PO BIDAC [facility] Last Admin: 08/19/16 06:03 Dose: 250 mg Methylprednisolone Sodium Succinate (Solu-Medrol -) 40 mg IVPB Q8H-IV [facility] Last Admin: 08/19/16 01:51 Dose: 40 mg Pantoprazole Sodium (Protonix -) 40 mg PO DAILY [facility] Last Admin: 08/18/16 09:48 Dose: 40 mg Ramipril (Altace -) 2.5 mg PO DAILY [facility] Last Admin: 08/18/16 09:49 Dose: 2.5 mg Review of Systems Cardiovascular: As noted above Respiratory: denies: reports: Cough, shortness of breath Gastrointestinal: denies: Nausea, Vomiting, Diarrhea, Constipation or Abdominal Discomfort Musculoskeletal: No Symptoms Reported Endocrine: No Symptoms Reported - Objective Vital Signs: Last Vital Signs Temp Pulse Resp BP Pulse Ox 98.3 F 54 L 18 137/75 96 08/19/16 06:00 08/19/16 06:00 08/19/16 06:00 08/19/16 06:00 08/18/16 21:00 Neck: Supple Negative JVD No bruit Cardiovascular: S1 S2 Regular Rate and Rhythm Grade 1-2/6 JING Respiratory: Diminished Breath Sounds at the Bases Gastrointestinal: Soft Benign Normal Bowel Sounds Ext: No Edema Labs: CBC, BMP 08/16/16 05:35 08/16/16 05:35 Assessment/Plan ASSESSMENT: 1. COPD exacerbation with recent history of acute bronchitis and influenza A 2. 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 HTN 4. DM 5. Hypercholesterolemia 6. Hypothyroidism 7. Probable peripheral diabetic neuropathy PLAN: 1. Continue Carvedilol and titrate dose as tolerated 2. Continue Ramipril 3. Continue Lipitor 4. Add ASA 5. Continue antibiotic coverage as per the primary team 6. Continue bronchodilators and steroids taper as per pulmonary 7. Additional cardiovascular evaluation including MPI study can be done as outpatient Jameson Tinoco MD
[2016-08-19] MEDS: ALBUTEROL SO4 0.083% IH SOL 2.5 MG/3 ML VIAL.NEB. NEB SCH ×3 (07:05→21:51)
[2016-08-19] MEDS: BUDESONIDE/FORMETEROL FUMARATE 160/4.5 mcg INHALER IH SCH ×2 (10:08→22:04)
[2016-08-19] MEDS: CARVEDILOL 3.125 MG TABLET (FP) PO SCH ×2 (10:09→22:04)
[2016-08-19] MEDS: LEVOTHYROXINE NA 100 MCG TABLET (FP) PO SCH (10:09)
[2016-08-19] MEDS: PANTOPRAZOLE 40 MG TABLET (FP) PO SCH (10:09)
[2016-08-19] MEDS: GABAPENTIN 300 MG CAPSULE (FP) PO SCH ×2 (10:09→22:04)
[2016-08-19] MEDS: MEMANTINE HCL 5 MG TABLET (UD) PO SCH ×2 (10:09→22:04)
[2016-08-19] MEDS: ENOXAPARIN NA (PORCINE) 40 MG/0.4 ML DISP.SYRIN SQ SCH (10:10)
[2016-08-19] MEDS: RAMIPRIL 2.5 MG CAPSULE (FP) PO SCH (10:10)
--- NOTE | 2016-08-19 10:52 | PN ---
Progress Note, Physician Chief Complaint: feels better has cough - Current Medication List Current Medications: Active Medications Acetaminophen (Tylenol -) 650 mg PO Q6H PRN PRN Reason: FEVER OR PAIN Albuterol Sulfate (Ventolin 0.083% Nebulizer Soln -) 1 amp NEB TID [facility] Last Admin: 08/19/16 07:05 Dose: 1 amp Albuterol Sulfate (Ventolin 0.083% Nebulizer Soln -) 1 amp NEB Q4H PRN PRN Reason: SHORT OF BREATH/WHEEZING Last Admin: 08/17/16 17:45 Dose: 1 amp Amitriptyline HCl (Elavil -) 25 mg PO [facility] Last Admin: 08/18/16 22:06 Dose: 25 mg Atorvastatin Calcium (Lipitor -) 20 mg PO [facility] Last Admin: 08/18/16 22:05 Dose: 20 mg Budesonide/Formoterol Fumarate (Symbicort 160/4.5mcg -) 2 puff IH BID [facility] Last Admin: 08/19/16 10:08 Dose: 2 puff Carvedilol (Coreg -) 3.125 mg PO BID [facility] Last Admin: 08/19/16 10:09 Dose: 3.125 mg Enoxaparin Sodium (Lovenox -) 40 mg SQ DAILY [facility] Last Admin: 08/19/16 10:10 Dose: 40 mg Gabapentin (Neurontin -) 300 mg PO BID [facility] Last Admin: 08/19/16 10:09 Dose: 300 mg Glipizide (Glucotrol -) 2.5 mg PO BIDAC [facility] Last Admin: 08/19/16 06:03 Dose: 2.5 mg Guaifenesin (Robitussin -) 10 ml PO Q8H PRN PRN Reason: COUGH Insulin Aspart (Novolog Vial Sliding Scale -) 1 vial SQ TIDAC [facility] PRN Reason: Protocol Last Admin: 08/19/16 06:03 Dose: 6 units Insulin Detemir (Levemir Vial) 10 units SQ [facility] Last Admin: 08/18/16 22:06 Dose: 10 units Levothyroxine Sodium (Synthroid -) 100 mcg PO DAILY [facility] Last Admin: 08/19/16 10:09 Dose: 100 mcg Memantine (Namenda -) 5 mg PO BID [facility] Last Admin: 08/19/16 10:09 Dose: 5 mg Metformin HCl (Glucophage -) 250 mg PO BIDAC [facility] Last Admin: 08/19/16 06:03 Dose: 250 mg Methylprednisolone Sodium Succinate (Solu-Medrol -) 40 mg IVPB Q8H-IV [facility] Last Admin: 08/19/16 10:08 Dose: 40 mg Pantoprazole Sodium (Protonix -) 40 mg PO DAILY [facility] Last Admin: 08/19/16 10:09 Dose: 40 mg Ramipril (Altace -) 2.5 mg PO DAILY [facility] Last Admin: 08/19/16 10:10 Dose: 2.5 mg - Objective Vital Signs: Vital Signs Temperature 98.3 F 08/19/16 06:00 Pulse Rate 54 L 08/19/16 06:00 Respiratory Rate 18 08/19/16 06:00 Blood Pressure 137/75 08/19/16 06:00 O2 Sat by Pulse Oximetry (%) 96 08/18/16 21:00 Constitutional: Yes: No Distress Cardiovascular: Yes: Regular Rate and Rhythm Respiratory: Yes: Diminished, Rhonchi Gastrointestinal: Yes: Normal Bowel Sounds, Soft, Abdomen, Obese. No: Tenderness Edema: No Labs: CBC, BMP 08/16/16 05:35 08/16/16 05:35 Problem List - Problems (1) Chest discomfort Code(s): R07.89 - OTHER CHEST PAIN (2) Cough Code(s): R05 - COUGH (3) Shortness of breath Code(s): R06.02 - SHORTNESS OF BREATH (4) COPD exacerbation Code(s): J44.1 - CHRONIC OBSTRUCTIVE PULMONARY DISEASE W (ACUTE) EXACERBATION (5) Diabetes Code(s): E11.9 - TYPE 2 DIABETES MELLITUS WITHOUT COMPLICATIONS Qualifiers: Diabetes mellitus type: type 2 Diabetes mellitus complication status: without complication Diabetes mellitus jail insulin use: without jail use Qualified Code(s): E11.9 - Type 2 diabetes mellitus without complications (6) Hypothyroidism Code(s): E03.9 - HYPOTHYROIDISM, UNSPECIFIED Qualifiers: Hypothyroidism type: unspecified Qualified Code(s): E03.9 - Hypothyroidism, unspecified (7) Interstitial lung disease Code(s): J84.9 - INTERSTITIAL PULMONARY DISEASE, UNSPECIFIED Assessment/Plan PLAN --on Solumedrol -- GI prophylaxis-- Protonix -- PT eval -- numbness on leg better -- nebs as needed -- pt on O2 -- clinically improving
--- NOTE | 2016-08-19 14:00 | PN ---
Progress Note (short form) - Note Progress Note: PULMONARY CHART REVIEWED HYDROBLASTER/PMD NOTES APPRECIATED VSS/AFEBRILE ANICTERIC SCATTERED WHEEZE S1S2 BS+ LESS EDEMA CT CHEST REVIEWED/COMPARED 2016/2013 CHRONIC B/L INTERSTITIAL INFILTRATES APPEAR WORSENED SINCE 2013 ETIOLOGY ? SPUTUM FOR AFB NEGATIVE SAME STEROIDS FOR NOW/BRONCHODILATORS/O2 REQUIRED WILL FOLLOW Justen ORR MD
[2016-08-19] MEDS ORDERED: PT OWN MED DRAWER 7, Y5N ONE (22:02)
[2016-08-19] MEDS: ATORVASTATIN CA 20 MG TABLET (FP) PO SCH (22:04)
[2016-08-19] MEDS: AMITRIPTYLINE HCL 25 MG TABLET (FP) PO SCH (22:04)
[2016-08-19] MEDS: INSULIN DETEMIR 100 UNITS/ML MDV SQ SCH (22:05)
[2016-08-20] MEDS: methylPREDNISolone NA SUCC 40 MG/1 ML VIAL IVPB SCH ×3 (02:02→17:47)
[2016-08-20] MEDS ORDERED: INSULIN (NOVOLOG) ASPART 100 UNITS/ML 10ML VIAL ONE ×3 (06:29→17:43)
[2016-08-20] MEDS: ALBUTEROL SO4 0.083% IH SOL 2.5 MG/3 ML VIAL.NEB. NEB SCH ×3 (06:32→21:45)
[2016-08-20] MEDS: metFORMIN HCL 500 MG TABLET (FP) PO SCH ×2 (06:37→17:46)
[2016-08-20] MEDS: glipiZIDE 5 MG TABLET (FP) PO SCH ×2 (06:37→17:46)
[2016-08-20] MEDS: INSULIN SLIDING SCALE (NOVOLOG) 1 VIAL SQ SCH ×3 (06:38→17:47)
--- NOTE | 2016-08-20 08:17 | PN ---
Progress Note (short form) - Note Progress Note: Chief Complaint: Events noted, notes reviewed, sitting in a chair, denies any chest pain or dyspnea History of Present Illness: Seen and examined on telemetry. Events noted, notes reviewed, sitting in a chair , denies any chest pain or dyspnea Echocardiography performed 08/11/16 revealed normal LV size and function, mild MR , AR and TR, MAC and AV sclerosis - Current Medication List Current Medications Acetaminophen (Tylenol -) 650 mg PO Q6H PRN PRN Reason: FEVER OR PAIN Albuterol Sulfate (Ventolin 0.083% Nebulizer Soln -) 1 amp NEB TID [facility] Last Admin: 08/20/16 06:32 Dose: 1 amp Albuterol Sulfate (Ventolin 0.083% Nebulizer Soln -) 1 amp NEB Q4H PRN PRN Reason: SHORT OF BREATH/WHEEZING Last Admin: 08/17/16 17:45 Dose: 1 amp Amitriptyline HCl (Elavil -) 25 mg PO [facility] Last Admin: 08/19/16 22:04 Dose: 25 mg Atorvastatin Calcium (Lipitor -) 20 mg PO HS [facility] Last Admin: 08/19/16 22:04 Dose: 20 mg Budesonide/Formoterol Fumarate (Symbicort 160/4.5mcg -) 2 puff IH BID [facility] Last Admin: 08/19/16 22:04 Dose: 2 puff Carvedilol (Coreg -) 3.125 mg PO BID [facility] Last Admin: 08/19/16 22:04 Dose: 3.125 mg Enoxaparin Sodium (Lovenox -) 40 mg SQ DAILY [facility] Last Admin: 08/19/16 10:10 Dose: 40 mg Gabapentin (Neurontin -) 300 mg PO BID [facility] Last Admin: 08/19/16 22:04 Dose: 300 mg Glipizide (Glucotrol -) 2.5 mg PO BIDAC [facility] Last Admin: 08/20/16 06:37 Dose: 2.5 mg Guaifenesin (Robitussin -) 10 ml PO Q8H PRN PRN Reason: COUGH Insulin Aspart (Novolog Vial Sliding Scale -) 1 vial SQ TIDAC [facility] PRN Reason: Protocol Last Admin: 08/20/16 06:38 Dose: 6 units Insulin Detemir (Levemir Vial) 14 units SQ [facility] Levothyroxine Sodium (Synthroid -) 100 mcg PO DAILY [facility] Last Admin: 08/19/16 10:09 Dose: 100 mcg Memantine (Namenda -) 5 mg PO BID [facility] Last Admin: 08/19/16 22:04 Dose: 5 mg Metformin HCl (Glucophage -) 250 mg PO BIDAC [facility] Last Admin: 08/20/16 06:37 Dose: 250 mg Methylprednisolone Sodium Succinate (Solu-Medrol -) 40 mg IVPB Q8H-IV [facility] Last Admin: 08/20/16 02:02 Dose: 40 mg Pantoprazole Sodium (Protonix -) 40 mg PO DAILY [facility] Last Admin: 08/19/16 10:09 Dose: 40 mg Ramipril (Altace -) 2.5 mg PO DAILY [facility] Last Admin: 08/19/16 10:10 Dose: 2.5 mg Review of Systems Cardiovascular: As noted above Respiratory: denies: reports: Cough Gastrointestinal: denies: Nausea, Vomiting, Diarrhea, Constipation or Abdominal Discomfort Musculoskeletal: No Symptoms Reported Endocrine: No Symptoms Reported - Objective Vital Signs: Last Vital Signs Temp Pulse Resp BP Pulse Ox 98.0 F 54 L 18 139/61 96 08/20/16 06:00 08/20/16 06:00 08/20/16 06:00 08/20/16 06:00 08/19/16 21:00 Neck: Supple Negative JVD No bruit Cardiovascular: S1 S2 Regular Rate and Rhythm Grade 1-2/6 JING Respiratory: Diminished Breath Sounds at the Bases Gastrointestinal: Soft Benign Normal Bowel Sounds Ext: No Edema Labs: CBC, BMP 08/16/16 05:35 08/16/16 05:35 Assessment/Plan ASSESSMENT: 1. COPD exacerbation with recent history of acute bronchitis and influenza A 2. 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 HTN 4. DM 5. Hypercholesterolemia 6. Hypothyroidism 7. Probable peripheral diabetic neuropathy PLAN: 1. Continue Carvedilol and titrate dose as tolerated 2. Continue Ramipril and titrate dose as tolerated 3. Continue Lipitor 4. Add ASA 5. Continue antibiotic coverage as per the primary team 6. Continue bronchodilators and steroids taper as per pulmonary service 7. Additional cardiovascular evaluation including MPI study can be done as outpatient Jameson Tinoco MD
[2016-08-20] MEDS ORDERED: PT OWN MED DRAWER 7, Y5N ONE ×3 (09:18→23:35)
[2016-08-20] MEDS: BUDESONIDE/FORMETEROL FUMARATE 160/4.5 mcg INHALER IH SCH ×2 (09:20→21:23)
[2016-08-20] MEDS: RAMIPRIL 5 MG CAPSULE (FP) PO SCH (09:22)
[2016-08-20] MEDS: MEMANTINE HCL 5 MG TABLET (UD) PO SCH ×2 (09:23→21:23)
[2016-08-20] MEDS: PANTOPRAZOLE 40 MG TABLET (FP) PO SCH (09:23)
[2016-08-20] MEDS: CARVEDILOL 6.25 MG TABLET (FP) PO SCH ×2 (09:23→21:23)
[2016-08-20] MEDS: GABAPENTIN 300 MG CAPSULE (FP) PO SCH ×2 (09:23→21:24)
[2016-08-20] MEDS: ENOXAPARIN NA (PORCINE) 40 MG/0.4 ML DISP.SYRIN SQ SCH (09:23)
[2016-08-20] MEDS: ASPIRIN COATED 81 MG TABLET.EC PO SCH (09:23)
[2016-08-20] MEDS: LEVOTHYROXINE NA 100 MCG TABLET (FP) PO SCH (09:24)
--- NOTE | 2016-08-20 09:28 | PN ---
Progress Note, Physician Chief Complaint: no distress - Current Medication List Current Medications: Active Medications Acetaminophen (Tylenol -) 650 mg PO Q6H PRN PRN Reason: FEVER OR PAIN Albuterol Sulfate (Ventolin 0.083% Nebulizer Soln -) 1 amp NEB TID [facility] Last Admin: 08/20/16 06:32 Dose: 1 amp Albuterol Sulfate (Ventolin 0.083% Nebulizer Soln -) 1 amp NEB Q4H PRN PRN Reason: SHORT OF BREATH/WHEEZING Last Admin: 08/17/16 17:45 Dose: 1 amp Amitriptyline HCl (Elavil -) 25 mg PO HS [facility] Last Admin: 08/19/16 22:04 Dose: 25 mg Aspirin (Ecotrin -) 81 mg PO DAILY [facility] Last Admin: 08/20/16 09:23 Dose: 81 mg Atorvastatin Calcium (Lipitor -) 20 mg PO HS [facility] Last Admin: 08/19/16 22:04 Dose: 20 mg Budesonide/Formoterol Fumarate (Symbicort 160/4.5mcg -) 2 puff IH BID [facility] Last Admin: 08/20/16 09:20 Dose: 2 puff Carvedilol (Coreg -) 6.25 mg PO BID [facility] Last Admin: 08/20/16 09:23 Dose: 6.25 mg Enoxaparin Sodium (Lovenox -) 40 mg SQ DAILY [facility] Last Admin: 08/20/16 09:23 Dose: 40 mg Gabapentin (Neurontin -) 300 mg PO BID [facility] Last Admin: 08/20/16 09:23 Dose: 300 mg Glipizide (Glucotrol -) 2.5 mg PO BIDAC [facility] Last Admin: 08/20/16 06:37 Dose: 2.5 mg Guaifenesin (Robitussin -) 10 ml PO Q8H PRN PRN Reason: COUGH Last Admin: 08/20/16 09:22 Dose: 10 ml Insulin Aspart (Novolog Vial Sliding Scale -) 1 vial SQ TIDAC [facility] PRN Reason: Protocol Last Admin: 08/20/16 06:38 Dose: 6 units Insulin Detemir (Levemir Vial) 14 units SQ [facility] Levothyroxine Sodium (Synthroid -) 100 mcg PO DAILY [facility] Last Admin: 08/20/16 09:24 Dose: 100 mcg Memantine (Namenda -) 5 mg PO BID [facility] Last Admin: 08/20/16 09:23 Dose: 5 mg Metformin HCl (Glucophage -) 250 mg PO BIDAC [facility] Last Admin: 08/20/16 06:37 Dose: 250 mg Methylprednisolone Sodium Succinate (Solu-Medrol -) 40 mg IVPB Q8H-IV [facility] Last Admin: 08/20/16 09:24 Dose: 40 mg Pantoprazole Sodium (Protonix -) 40 mg PO DAILY [facility] Last Admin: 08/20/16 09:23 Dose: 40 mg Ramipril (Altace -) 5 mg PO DAILY [facility] Last Admin: 08/20/16 09:22 Dose: 5 mg - Objective Vital Signs: Vital Signs Temperature 98.0 F 08/20/16 06:00 Pulse Rate 54 L 08/20/16 06:00 Respiratory Rate 18 08/20/16 06:00 Blood Pressure 139/61 08/20/16 06:00 O2 Sat by Pulse Oximetry (%) 96 08/19/16 21:00 Constitutional: Yes: No Distress Cardiovascular: Yes: Regular Rate and Rhythm Respiratory: Yes: Diminished, Rhonchi (occasional) Gastrointestinal: Yes: Normal Bowel Sounds, Soft. No: Distention, Tenderness Edema: No Labs: CBC, BMP 08/16/16 05:35 08/16/16 05:35 Problem List - Problems (1) Chest discomfort Code(s): R07.89 - OTHER CHEST PAIN (2) Cough Code(s): R05 - COUGH (3) Shortness of breath Code(s): R06.02 - SHORTNESS OF BREATH (4) COPD exacerbation Code(s): J44.1 - CHRONIC OBSTRUCTIVE PULMONARY DISEASE W (ACUTE) EXACERBATION (5) Diabetes Code(s): E11.9 - TYPE 2 DIABETES MELLITUS WITHOUT COMPLICATIONS Qualifiers: Diabetes mellitus type: type 2 Diabetes mellitus complication status: without complication Diabetes mellitus intermediate teacher insulin use: without intermediate teacher use Qualified Code(s): E11.9 - Type 2 diabetes mellitus without complications (6) Hypothyroidism Code(s): E03.9 - HYPOTHYROIDISM, UNSPECIFIED Qualifiers: Hypothyroidism type: unspecified Qualified Code(s): E03.9 - Hypothyroidism, unspecified (7) Interstitial lung disease Code(s): J84.9 - INTERSTITIAL PULMONARY DISEASE, UNSPECIFIED Assessment/Plan PLAN --on Solumedrol- taper per Pulmonary -- GI prophylaxis-- Protonix -- PT eval -- numbness on leg better -- nebs as needed -- pt on O2 -- clinically improving
--- NOTE | 2016-08-20 11:30 | PN ---
Progress Note (short form) - Note Progress Note: PULMONARY CHART REVIEWED ADOPTION SERVICES MANAGER/PMD NOTES APPRECIATED VSS/AFEBRILE ANICTERIC SCATTERED WHEEZE S1S2 BS+ LESS EDEMA LABS/MEDS/NOTES/IMAGING/MICRO REVIEWED SAME STEROIDS FOR NOW/BRONCHODILATORS/O2 REQUIRED GLYCEMIC CONTROL WILL FOLLOW Justen ORR MD
[2016-08-20] MEDS: ATORVASTATIN CA 20 MG TABLET (FP) PO SCH (21:23)
[2016-08-20] MEDS: INSULIN DETEMIR 100 UNITS/ML MDV SQ SCH (21:23)
[2016-08-20] MEDS: AMITRIPTYLINE HCL 25 MG TABLET (FP) PO SCH (21:24)
[2016-08-21] MEDS: methylPREDNISolone NA SUCC 40 MG/1 ML VIAL IVPB SCH ×3 (02:10→21:34)
[2016-08-21] MEDS ORDERED: INSULIN (NOVOLOG) ASPART 100 UNITS/ML 10ML VIAL ONE ×3 (06:07→11:32)
[2016-08-21] MEDS: glipiZIDE 5 MG TABLET (FP) PO SCH ×2 (06:12→17:56)
[2016-08-21] MEDS: INSULIN SLIDING SCALE (NOVOLOG) 1 VIAL SQ SCH ×3 (06:13→17:56)
[2016-08-21] MEDS: metFORMIN HCL 500 MG TABLET (FP) PO SCH ×2 (06:13→17:56)
[2016-08-21 07:37] LABS: BASOPHIL 0.6 % (0-2.0); EOSINOPHIL 0.2 % (0-4.5); MCH 29.7 pg (25.7-33.7); MCHC 33.9 g/dl (32.0-36.0); MEAN CELL VOLUME 87.6 fl (80-96); MEAN PLT VOLUME 10.1 fl (7.5-11.1); NEUTROPHILS 92.2 % (42.8-82.8); PLATELET COUNT 225 K/MM3 (134-434); RDW 13.1 % (11.6-15.6); WHITE BLOOD COUNT 15.9 K/mm3 (4.0-10.0)
[2016-08-21 08:26] LABS: ALK PHOS 74 U/L (45-117); ANION GAP 12 (8-16); BILIRUBIN,TOTAL 0.9 mg/dL (0.2-1.0); CALCIUM 8.9 mg/dL (8.5-10.1); CO2 29 mmol/L (21-32); CREATININE 0.7 mg/dL (0.55-1.02); SGOT/AST 11 U/L (15-37); SGPT/ALT 20 U/L (12-78); TOT PROT 6.5 g/dl (6.4-8.2)
[2016-08-21 08:29] LABS: GLUCOSE,RANDOM 322 mg/dL (74-106)
[2016-08-21] MEDS: RAMIPRIL 5 MG CAPSULE (FP) PO SCH (09:49)
[2016-08-21] MEDS: ASPIRIN COATED 81 MG TABLET.EC PO SCH (09:50)
[2016-08-21] MEDS: ENOXAPARIN NA (PORCINE) 40 MG/0.4 ML DISP.SYRIN SQ SCH (09:50)
[2016-08-21] MEDS: PANTOPRAZOLE 40 MG TABLET (FP) PO SCH (09:50)
[2016-08-21] MEDS: BUDESONIDE/FORMETEROL FUMARATE 160/4.5 mcg INHALER IH SCH ×2 (09:50→21:35)
[2016-08-21] MEDS: CARVEDILOL 6.25 MG TABLET (FP) PO SCH ×2 (09:50→21:35)
[2016-08-21] MEDS: MEMANTINE HCL 5 MG TABLET (UD) PO SCH ×2 (09:50→21:35)
[2016-08-21] MEDS: LEVOTHYROXINE NA 100 MCG TABLET (FP) PO SCH (09:50)
[2016-08-21] MEDS: GABAPENTIN 300 MG CAPSULE (FP) PO SCH ×2 (09:50→21:35)
--- NOTE | 2016-08-21 09:51 | PN ---
Progress Note, Physician History of Present Illness: Dyspnea improved, non-productive cough resolved. - Current Medication List Current Medications: Active Medications Acetaminophen (Tylenol -) 650 mg PO Q6H PRN PRN Reason: FEVER OR PAIN Amitriptyline HCl (Elavil -) 25 mg PO HS [facility] BEDS [facility] Last Admin: 08/20/16 21:24 Dose: 25 mg Aspirin (Ecotrin -) 81 mg PO DAILY [facility]S [facility] Last Admin: 08/20/16 09:23 Dose: 81 mg Atorvastatin Calcium (Lipitor -) 20 mg PO HS [facility] 234 [facility]S [facility] Last Admin: 08/20/16 21:23 Dose: 20 mg Budesonide/Formoterol Fumarate (Symbicort 160/4.5mcg -) 2 puff IH BID [facility]S [facility] Last Admin: 08/20/16 21:23 Dose: 2 puff Carvedilol (Coreg -) 6.25 mg PO BID [facility] Last Admin: 08/20/16 21:23 Dose: 6.25 mg Enoxaparin Sodium (Lovenox -) 40 mg SQ DAILY [facility]S [facility] Last Admin: 08/20/16 09:23 Dose: 40 mg Gabapentin (Neurontin -) 300 mg PO BID [facility] Last Admin: 08/20/16 21:24 Dose: 300 mg Glipizide (Glucotrol -) 2.5 mg PO BIDAC [facility] 234 B[facility]S [facility] Last Admin: 08/21/16 06:12 Dose: 2.5 mg Guaifenesin (Robitussin -) 10 ml PO Q8H PRN PRN Reason: COUGH Last Admin: 08/20/16 09:22 Dose: 10 ml Insulin Aspart (Novolog Vial Sliding Scale -) 1 vial SQ TIDAC [facility] 234 B[facility]S [facility] PRN Reason: Protocol Last Admin: 08/21/16 06:13 Dose: 6 units Insulin Detemir (Levemir Vial) 14 units SQ [facility] Last Admin: 08/20/16 21:23 Dose: 14 units Levothyroxine Sodium (Synthroid -) 100 mcg PO DAILY [facility] 234 B[facility]S [facility] Last Admin: 08/20/16 09:24 Dose: 100 mcg Memantine (Namenda -) 5 mg PO BID [facility] 234 [facility]S [facility] Last Admin: 08/20/16 21:23 Dose: 5 mg Metformin HCl (Glucophage -) 250 mg PO BIDAC [facility] 234 BEDS [facility] Last Admin: 08/21/16 06:13 Dose: 250 mg Methylprednisolone Sodium Succinate (Solu-Medrol -) 40 mg IVPB Q8H-IV [facility] 234 BEDS [facility] Last Admin: 08/21/16 02:10 Dose: 40 mg Pantoprazole Sodium (Protonix -) 40 mg PO DAILY [facility] 234 [facility]S [facility] Last Admin: 08/20/16 09:23 Dose: 40 mg Ramipril (Altace -) 5 mg PO DAILY [facility] 234 B[facility]S [facility] Last Admin: 08/20/16 09:22 Dose: 5 mg - Objective Vital Signs: Vital Signs Temperature 98 F 08/21/16 06:00 Pulse Rate 53 L 08/21/16 06:00 Respiratory Rate 16 08/21/16 06:00 Blood Pressure 145/78 08/21/16 06:00 O2 Sat by Pulse Oximetry (%) 95 08/20/16 21:00 Constitutional: Yes: No Distress, Calm Neck: Yes: Supple, Tenderness Respiratory: Yes: Regular, Diminished, On Nasal O2 Gastrointestinal: Yes: Normal Bowel Sounds, Soft, Abdomen, Obese Edema: No Labs: CBC, BMP 08/21/16 06:30 08/21/16 06:30 - ....Imaging EKG: Report Reviewed (Tele: SB) Problem List - Problems (1) Hypertension Code(s): I10 - ESSENTIAL (PRIMARY) HYPERTENSION Qualifiers: Hypertension type: essential hypertension Qualified Code(s): I10 - Essential (primary) hypertension (2) Influenza A Code(s): J10.1 - FLU DUE TO OTH IDENT INFLUENZA VIRUS W OTH RESP MANIFEST (3) COPD exacerbation Code(s): J44.1 - CHRONIC OBSTRUCTIVE PULMONARY DISEASE W (ACUTE) EXACERBATION (4) Hyperlipidemia associated with type 2 diabetes mellitus Code(s): E11.69 - TYPE 2 DIABETES MELLITUS WITH OTHER SPECIFIED COMPLICATION E78.5 - HYPERLIPIDEMIA, UNSPECIFIED (5) Hypothyroidism Code(s): E03.9 - HYPOTHYROIDISM, UNSPECIFIED Qualifiers: Hypothyroidism type: unspecified Qualified Code(s): E03.9 - Hypothyroidism, unspecified (6) Interstitial lung disease Code(s): J84.9 - INTERSTITIAL PULMONARY DISEASE, UNSPECIFIED Assessment/Plan 1. Acute COPD exacerbation improving 2. CAD with history of subendocardial ischemia 3. HTN 4. Type 2 DM 5. Hypercholesterolemia 6. Lower extremity numbness with underlying history of diabetic neuropathy 7. Hypothyroidism PLAN: 1. Continue Carvedilol 6.25 bid and Ramipril 2.5 qd with uptitration as tolerated 2. Continue Lipitor 20 qhs and ASA 81 qd 3. Off antibiotics, continue bronchodilators, O2 and IV steroid taper 4. DVT and GI prophylaxis 5. Additional cardiovascular evaluation including MPI study can be done as outpatient
--- NOTE | 2016-08-21 10:40 | PN ---
Progress Note (short form) - Note Progress Note: SUBJECTIVE: Patient seen and examined. Sitting in the chair. No distress. All follow ups noted. Denies chest pain. Breathing is stable. OBJECTIVE: Vital Signs 08/21/16 06:00 Temperature 98 F Pulse Rate 53 L Respiratory 16 Rate Blood Pressure 145/78 Intake & Output 08/20/16 08/21/16 08/21/16 23:59 07:59 15:59 Intake Total 400 Output Total 1 Balance 400 -1 Intake: Oral 400 Output: Urine 1 Void 1 Other: Voiding Method Toilet Active Medications Acetaminophen (Tylenol -) 650 mg PO Q6H PRN PRN Reason: FEVER OR PAIN Amitriptyline HCl (Elavil -) 25 mg PO HS REPLACED BY [facility] Last Admin: 08/20/16 21:24 Dose: 25 mg Aspirin (Ecotrin -) 81 mg PO DAILY REPLACED BY [facility] Last Admin: 08/21/16 09:50 Dose: 81 mg Atorvastatin Calcium (Lipitor -) 20 mg PO HS REPLACED BY [facility] Last Admin: 08/20/16 21:23 Dose: 20 mg Budesonide/Formoterol Fumarate (Symbicort 160/4.5mcg -) 2 puff IH BID REPLACED BY [facility] Last Admin: 08/21/16 09:50 Dose: 2 puff Carvedilol (Coreg -) 6.25 mg PO BID REPLACED BY [facility] Last Admin: 08/21/16 09:50 Dose: 6.25 mg Enoxaparin Sodium (Lovenox -) 40 mg SQ DAILY REPLACED BY [facility] Last Admin: 08/21/16 09:50 Dose: 40 mg Gabapentin (Neurontin -) 300 mg PO BID REPLACED BY [facility] Last Admin: 08/21/16 09:50 Dose: 300 mg Glipizide (Glucotrol -) 2.5 mg PO BIDAC REPLACED BY [facility] Last Admin: 08/21/16 06:12 Dose: 2.5 mg Guaifenesin (Robitussin -) 10 ml PO Q8H PRN PRN Reason: COUGH Last Admin: 08/20/16 09:22 Dose: 10 ml Insulin Aspart (Novolog Vial Sliding Scale -) 1 vial SQ TIDAC REPLACED BY [facility] PRN Reason: Protocol Last Admin: 08/21/16 06:13 Dose: 6 units Insulin Detemir (Levemir Vial) 14 units SQ HS REPLACED BY [facility] Last Admin: 08/20/16 21:23 Dose: 14 units Levothyroxine Sodium (Synthroid -) 100 mcg PO DAILY REPLACED BY [facility] Last Admin: 08/21/16 09:50 Dose: 100 mcg Memantine (Namenda -) 5 mg PO BID REPLACED BY [facility] Last Admin: 08/21/16 09:50 Dose: 5 mg Metformin HCl (Glucophage -) 250 mg PO BIDAC REPLACED BY [facility] Last Admin: 08/21/16 06:13 Dose: 250 mg Methylprednisolone Sodium Succinate (Solu-Medrol -) 40 mg IVPB Q8H-IV REPLACED BY [facility] Last Admin: 08/21/16 09:50 Dose: 40 mg Pantoprazole Sodium (Protonix -) 40 mg PO DAILY REPLACED BY [facility] Last Admin: 08/21/16 09:50 Dose: 40 mg Ramipril (Altace -) 5 mg PO DAILY REPLACED BY [facility] Last Admin: 08/21/16 09:49 Dose: 5 mg CBC, BMP 08/21/16 06:30 08/21/16 06:30 Laboratory Results - last 24 hr 08/20/16 08/20/16 08/20/16 12:15 16:46 21:20 WBC RBC Hgb Hct MCV MCHC RDW Plt Count MPV Neutrophils % Lymphocytes % Monocytes % Eosinophils % Basophils % Sodium Potassium Chloride Carbon Dioxide Anion Gap BUN Creatinine Creat Clearance w eGFR POC Glucometer 332 357 303 Random Glucose Calcium Total Bilirubin AST ALT Alkaline Phosphatase Total Protein Albumin 08/21/16 08/21/16 08/21/16 05:36 05:38 06:30 WBC 15.9 H D RBC 4.81 Hgb 14.3 Hct 42.1 MCV 87.6 MCHC 33.9 RDW 13.1 Plt Count 225 MPV 10.1 Neutrophils % 92.2 H Lymphocytes % 4.8 L D Monocytes % 2.2 L Eosinophils % 0.2 D Basophils % 0.6 Sodium Potassium Chloride Carbon Dioxide Anion Gap BUN Creatinine Creat Clearance w eGFR POC Glucometer 275 109 Random Glucose Calcium Total Bilirubin AST ALT Alkaline Phosphatase Total Protein Albumin 08/21/16 06:30 WBC RBC Hgb Hct MCV MCHC RDW Plt Count MPV Neutrophils % Lymphocytes % Monocytes % Eosinophils % Basophils % Sodium 132 L Potassium 4.2 Chloride 91 L Carbon Dioxide 29 Anion Gap 12 BUN 24 H Creatinine 0.7 Creat Clearance w eGFR > 60 POC Glucometer Random Glucose 322 H* D Calcium 8.9 Total Bilirubin 0.9 D AST 11 L D ALT 20 Alkaline Phosphatase 74 Total Protein 6.5 Albumin 3.0 L Microbiology 08/17/16 22:20 AFB Smear Concentration - Final Sputum - Expectorated Direct Acid Fast Bacilli Smear - Final Mycobacterial Culture - Preliminary PHYSICAL EXAMINATION: Constitutional: Yes: No Distress Cardiovascular: Yes: Regular Rate and Rhythm Respiratory: Yes: Diminished, Poor Air Entry. Gastrointestinal: Yes: Normal Bowel Sounds, Soft. No: Distention, Tenderness Edema: No ASSESSMENT & PLAN: - Slowly getting better. - Continue steroids. - Taper slowly. - Continue with medications. - Monitor blood sugars. - Will follow. Problem List - Problems (1) Chest discomfort Code(s): R07.89 - OTHER CHEST PAIN (2) Cough Code(s): R05 - COUGH (3) Shortness of breath Code(s): R06.02 - SHORTNESS OF BREATH (4) COPD exacerbation Code(s): J44.1 - CHRONIC OBSTRUCTIVE PULMONARY DISEASE W (ACUTE) EXACERBATION (5) Diabetes Code(s): E11.9 - TYPE 2 DIABETES MELLITUS WITHOUT COMPLICATIONS Qualifiers: Diabetes mellitus type: type 2 Diabetes mellitus complication status: without complication Diabetes mellitus skilled nursing insulin use: without skilled nursing use Qualified Code(s): E11.9 - Type 2 diabetes mellitus without complications (6) Hypothyroidism Code(s): E03.9 - HYPOTHYROIDISM, UNSPECIFIED Qualifiers: Hypothyroidism type: unspecified Qualified Code(s): E03.9 - Hypothyroidism, unspecified (7) Interstitial lung disease Code(s): J84.9 - INTERSTITIAL PULMONARY DISEASE, UNSPECIFIED Documentation prepared by Esha Wyatt, acting as a medical recruiter for Veronica Carroll MD.
--- NOTE | 2016-08-21 12:11 | PN ---
Progress Note, Physician History of Present Illness: pulmonary alert,nad,-sob,less cough - Current Medication List Current Medications: Active Medications Acetaminophen (Tylenol -) 650 mg PO Q6H PRN PRN Reason: FEVER OR PAIN Amitriptyline HCl (Elavil -) 25 mg PO HS [facility] Last Admin: 08/20/16 21:24 Dose: 25 mg Aspirin (Ecotrin -) 81 mg PO DAILY [facility] Last Admin: 08/21/16 09:50 Dose: 81 mg Atorvastatin Calcium (Lipitor -) 20 mg PO HS [facility] Last Admin: 08/20/16 21:23 Dose: 20 mg Budesonide/Formoterol Fumarate (Symbicort 160/4.5mcg -) 2 puff IH BID [facility] Last Admin: 08/21/16 09:50 Dose: 2 puff Carvedilol (Coreg -) 6.25 mg PO BID [facility] Last Admin: 08/21/16 09:50 Dose: 6.25 mg Enoxaparin Sodium (Lovenox -) 40 mg SQ DAILY [facility] Last Admin: 08/21/16 09:50 Dose: 40 mg Gabapentin (Neurontin -) 300 mg PO BID [facility] Last Admin: 08/21/16 09:50 Dose: 300 mg Glipizide (Glucotrol -) 2.5 mg PO BIDAC [facility] Last Admin: 08/21/16 06:12 Dose: 2.5 mg Guaifenesin (Robitussin -) 10 ml PO Q8H PRN PRN Reason: COUGH Last Admin: 08/20/16 09:22 Dose: 10 ml Insulin Aspart (Novolog Vial Sliding Scale -) 1 vial SQ TIDAC [facility] PRN Reason: Protocol Last Admin: 08/21/16 11:47 Dose: 8 units Insulin Detemir (Levemir Vial) 14 units SQ [facility] Last Admin: 08/20/16 21:23 Dose: 14 units Levothyroxine Sodium (Synthroid -) 100 mcg PO DAILY [facility] Last Admin: 08/21/16 09:50 Dose: 100 mcg Memantine (Namenda -) 5 mg PO BID [facility] Last Admin: 08/21/16 09:50 Dose: 5 mg Metformin HCl (Glucophage -) 250 mg PO BIDAC [facility] Last Admin: 08/21/16 06:13 Dose: 250 mg Methylprednisolone Sodium Succinate (Solu-Medrol -) 40 mg IVPB Q8H-IV [facility] Last Admin: 08/21/16 09:50 Dose: 40 mg Pantoprazole Sodium (Protonix -) 40 mg PO DAILY [facility] Last Admin: 08/21/16 09:50 Dose: 40 mg Ramipril (Altace -) 5 mg PO DAILY [facility] Last Admin: 08/21/16 09:49 Dose: 5 mg - Objective Vital Signs: Vital Signs Temperature 98 F 08/21/16 06:00 Pulse Rate 53 L 08/21/16 06:00 Respiratory Rate 16 08/21/16 06:00 Blood Pressure 145/78 08/21/16 06:00 O2 Sat by Pulse Oximetry (%) 95 08/20/16 21:00 Constitutional: Yes: Well Nourished, Calm Eyes: Yes: WNL HENT: Yes: WNL Neck: Yes: WNL Cardiovascular: Yes: Regular Rate and Rhythm, S1, S2 Respiratory: Yes: Rales (bibasilar crackles) Gastrointestinal: Yes: Normal Bowel Sounds, Soft Musculoskeletal: Yes: Muscle Weakness Edema: No Labs: CBC, BMP 08/21/16 06:30 08/21/16 06:30 Assessment/Plan A/P Acute COPD Exacerbation Influenza A HTN DM Hypercholesterolemia - decrease medrol to 40mg q12 - inhaled bronchodilators - O2 as needed - continue cardiac meds - DVT prophylaxis - pfts outpatient DR VYAS
[2016-08-21] MEDS ORDERED: PT OWN MED DRAWER 7, Y5N ONE (21:21)
[2016-08-21] MEDS: INSULIN DETEMIR 100 UNITS/ML MDV SQ SCH (21:34)
[2016-08-21] MEDS: ATORVASTATIN CA 20 MG TABLET (FP) PO SCH (21:35)
[2016-08-21] MEDS: AMITRIPTYLINE HCL 25 MG TABLET (FP) PO SCH (21:35)
--- NOTE | 2016-08-22 06:02 | PN ---
Progress Note (short form) - Note Progress Note: Chief Complaint: Events noted, notes reviewed, denies any chest pain or dyspnea , reports intermittent cough History of Present Illness: Seen and examined on telemetry. Events noted, notes reviewed, denies any chest pain or dyspnea, reports intermittent cough Echocardiography performed 08/11/16 revealed normal LV size and function, mild MR , AR and TR, MAC and AV sclerosis - Current Medication List Current Medications Acetaminophen (Tylenol -) 650 mg PO Q6H PRN PRN Reason: FEVER OR PAIN Amitriptyline HCl (Elavil -) 25 mg PO HS [facility] Last Admin: 08/21/16 21:35 Dose: 25 mg Aspirin (Ecotrin -) 81 mg PO DAILY [facility] Last Admin: 08/21/16 09:50 Dose: 81 mg Atorvastatin Calcium (Lipitor -) 20 mg PO HS [facility] Last Admin: 08/21/16 21:35 Dose: 20 mg Budesonide/Formoterol Fumarate (Symbicort 160/4.5mcg -) 2 puff IH BID [facility] Last Admin: 08/21/16 21:35 Dose: 2 puff Carvedilol (Coreg -) 6.25 mg PO BID [facility] Last Admin: 08/21/16 21:35 Dose: 6.25 mg Enoxaparin Sodium (Lovenox -) 40 mg SQ DAILY [facility] Last Admin: 08/21/16 09:50 Dose: 40 mg Gabapentin (Neurontin -) 300 mg PO BID [facility] Last Admin: 08/21/16 21:35 Dose: 300 mg Glipizide (Glucotrol -) 2.5 mg PO BIDAC [facility] Last Admin: 08/21/16 17:56 Dose: 2.5 mg Guaifenesin (Robitussin -) 10 ml PO Q8H PRN PRN Reason: COUGH Last Admin: 08/20/16 09:22 Dose: 10 ml Insulin Aspart (Novolog Vial Sliding Scale -) 1 vial SQ TIDAC [facility] PRN Reason: Protocol Last Admin: 08/21/16 17:56 Dose: 8 units Insulin Detemir (Levemir Vial) 14 units SQ [facility] Last Admin: 08/21/16 21:34 Dose: 14 units Levothyroxine Sodium (Synthroid -) 100 mcg PO DAILY [facility] Last Admin: 08/21/16 09:50 Dose: 100 mcg Memantine (Namenda -) 5 mg PO BID [facility] Last Admin: 08/21/16 21:35 Dose: 5 mg Metformin HCl (Glucophage -) 250 mg PO BIDAC [facility] Last Admin: 08/21/16 17:56 Dose: 250 mg Methylprednisolone Sodium Succinate (Solu-Medrol -) 40 mg IVPB BID [facility] Last Admin: 08/21/16 21:34 Dose: 40 mg Pantoprazole Sodium (Protonix -) 40 mg PO DAILY [facility] Last Admin: 08/21/16 09:50 Dose: 40 mg Ramipril (Altace -) 5 mg PO DAILY [facility] Last Admin: 08/21/16 09:49 Dose: 5 mg Review of Systems Cardiovascular: As noted above Respiratory: denies: reports: Cough Gastrointestinal: denies: Nausea, Vomiting, Diarrhea, Constipation or Abdominal Discomfort Musculoskeletal: No Symptoms Reported Endocrine: No Symptoms Reported - Objective Vital Signs: Last Vital Signs Temp Pulse Resp BP Pulse Ox 98.0 F 50 L 18 125/59 97 08/22/16 02:00 08/22/16 02:00 08/22/16 02:00 08/22/16 02:00 08/21/16 21:00 Neck: Supple Negative JVD No bruit Cardiovascular: S1 S2 Regular Rate and Rhythm Grade 1-2/6 JING Respiratory: Diminished Breath Sounds at the Bases Gastrointestinal: Soft Benign Normal Bowel Sounds Ext: No Edema Labs: CBC, BMP 08/21/16 06:30 08/21/16 06:30 Assessment/Plan ASSESSMENT: 1. COPD exacerbation with recent history of acute bronchitis and influenza A, resolving 2. 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 HTN 4. DM 5. Hypercholesterolemia 6. Hypothyroidism 7. Peripheral diabetic neuropathy PLAN: 1. Continue Carvedilol 2. Continue Ramipril 3. Continue Lipitor 4. Continue ASA 5. Continue bronchodilators and steroids taper as per pulmonary service 6. Additional cardiovascular evaluation including MPI study can be done as outpatient Jameson Tinoco MD
[2016-08-22] MEDS: glipiZIDE 5 MG TABLET (FP) PO SCH ×2 (06:08→18:11)
[2016-08-22] MEDS: metFORMIN HCL 500 MG TABLET (FP) PO SCH ×2 (06:08→18:10)
[2016-08-22] MEDS: INSULIN SLIDING SCALE (NOVOLOG) 1 VIAL SQ SCH ×3 (06:08→18:11)
[2016-08-22] MEDS ORDERED: INSULIN (NOVOLOG) ASPART 100 UNITS/ML 10ML VIAL ONE ×2 (07:02→18:14)
[2016-08-22] MEDS ORDERED: PT OWN MED DRAWER 7, Y5N ONE ×2 (09:04→21:13)
[2016-08-22] MEDS: PANTOPRAZOLE 40 MG TABLET (FP) PO SCH (10:06)
[2016-08-22] MEDS: ASPIRIN COATED 81 MG TABLET.EC PO SCH (10:06)
[2016-08-22] MEDS: RAMIPRIL 5 MG CAPSULE (FP) PO SCH (10:06)
[2016-08-22] MEDS: LEVOTHYROXINE NA 100 MCG TABLET (FP) PO SCH (10:06)
[2016-08-22] MEDS: CARVEDILOL 6.25 MG TABLET (FP) PO SCH ×2 (10:06→21:16)
[2016-08-22] MEDS: GABAPENTIN 300 MG CAPSULE (FP) PO SCH ×2 (10:06→21:16)
[2016-08-22] MEDS: MEMANTINE HCL 5 MG TABLET (UD) PO SCH ×2 (10:06→21:16)
[2016-08-22] MEDS: ENOXAPARIN NA (PORCINE) 40 MG/0.4 ML DISP.SYRIN SQ SCH (10:06)
[2016-08-22] MEDS: methylPREDNISolone NA SUCC 40 MG/1 ML VIAL IVPB SCH ×2 (10:07→21:16)
[2016-08-22] MEDS: BUDESONIDE/FORMETEROL FUMARATE 160/4.5 mcg INHALER IH SCH ×2 (10:07→21:16)
--- NOTE | 2016-08-22 10:33 | PN ---
Progress Note, Physician Chief Complaint: no sob feels better - Current Medication List Current Medications: Active Medications Acetaminophen (Tylenol -) 650 mg PO Q6H PRN PRN Reason: FEVER OR PAIN Amitriptyline HCl (Elavil -) 25 mg PO [facility] Last Admin: 08/21/16 21:35 Dose: 25 mg Aspirin (Ecotrin -) 81 mg PO DAILY [facility] Last Admin: 08/22/16 10:06 Dose: 81 mg Atorvastatin Calcium (Lipitor -) 20 mg PO HS [facility] Last Admin: 08/21/16 21:35 Dose: 20 mg Budesonide/Formoterol Fumarate (Symbicort 160/4.5mcg -) 2 puff IH BID [facility] Last Admin: 08/22/16 10:07 Dose: 2 puff Carvedilol (Coreg -) 6.25 mg PO BID [facility] Last Admin: 08/22/16 10:06 Dose: 6.25 mg Enoxaparin Sodium (Lovenox -) 40 mg SQ DAILY [facility] Last Admin: 08/22/16 10:06 Dose: 40 mg Gabapentin (Neurontin -) 300 mg PO BID [facility] Last Admin: 08/22/16 10:06 Dose: 300 mg Glipizide (Glucotrol -) 2.5 mg PO BIDAC [facility] Last Admin: 08/22/16 06:08 Dose: 2.5 mg Guaifenesin (Robitussin -) 10 ml PO Q8H PRN PRN Reason: COUGH Last Admin: 08/20/16 09:22 Dose: 10 ml Insulin Aspart (Novolog Vial Sliding Scale -) [facility] Reason: Protocol Last Admin: 08/22/16 06:08 Dose: 8 units Insulin Detemir (Levemir Vial) 14 units SQ [facility] Last Admin: 08/21/16 21:34 Dose: 14 units Levothyroxine Sodium (Synthroid -) 100 mcg PO DAILY [facility] Last Admin: 08/22/16 10:06 Dose: 100 mcg Memantine (Namenda -) 5 mg PO BID [facility] Last Admin: 08/22/16 10:06 Dose: 5 mg Metformin HCl (Glucophage -) 250 mg PO BIDAC [facility] Last Admin: 08/22/16 06:08 Dose: 250 mg Methylprednisolone Sodium Succinate (Solu-Medrol -) 40 mg IVPB BID [facility] Last Admin: 08/22/16 10:07 Dose: 40 mg Pantoprazole Sodium (Protonix -) 40 mg PO DAILY [facility] Last Admin: 08/22/16 10:06 Dose: 40 mg Ramipril (Altace -) 5 mg PO DAILY [facility] Last Admin: 08/22/16 10:06 Dose: 5 mg - Objective Vital Signs: Vital Signs Temperature 98.1 F 08/22/16 06:00 Pulse Rate 53 L 08/22/16 06:00 Respiratory Rate 18 08/22/16 06:00 Blood Pressure 118/62 08/22/16 06:00 O2 Sat by Pulse Oximetry (%) 97 08/21/16 21:00 Constitutional: Yes: No Distress Cardiovascular: Yes: Regular Rate and Rhythm Respiratory: Yes: Diminished. No: Rales, Rhonchi Gastrointestinal: Yes: Normal Bowel Sounds, Soft, Abdomen, Obese. No: Distention, Tenderness Edema: No Labs: CBC, BMP 08/21/16 06:30 08/21/16 06:30 Problem List - Problems (1) Chest discomfort Code(s): R07.89 - OTHER CHEST PAIN (2) Cough Code(s): R05 - COUGH (3) Shortness of breath Code(s): R06.02 - SHORTNESS OF BREATH (4) COPD exacerbation Code(s): J44.1 - CHRONIC OBSTRUCTIVE PULMONARY DISEASE W (ACUTE) EXACERBATION (5) Diabetes Code(s): E11.9 - TYPE 2 DIABETES MELLITUS WITHOUT COMPLICATIONS Qualifiers: Diabetes mellitus type: type 2 Diabetes mellitus complication status: without complication Diabetes mellitus assisted insulin use: without assisted use Qualified Code(s): E11.9 - Type 2 diabetes mellitus without complications (6) Hypothyroidism Code(s): E03.9 - HYPOTHYROIDISM, UNSPECIFIED Qualifiers: Hypothyroidism type: unspecified Qualified Code(s): E03.9 - Hypothyroidism, unspecified (7) Interstitial lung disease Code(s): J84.9 - INTERSTITIAL PULMONARY DISEASE, UNSPECIFIED Assessment/Plan PLAN --on Solumedrol- taper per Pulmonary -- GI prophylaxis-- Protonix -- PT eval -- numbness on leg better -- nebs as needed -- pt on O2 -- clinically improving -- anticipate dc in 2 days
--- NOTE | 2016-08-22 13:19 | PN ---
Progress Note (short form) - Note Progress Note: Breathing feels a little better. Still with congested cough. No CP. Intake & Output 08/19/16 08/20/16 08/21/16 08/22/16 23:59 23:59 23:59 23:59 Intake Total 400 400 400 Output Total 1 Balance 400 400 399 Weight 166 lb 4 oz 167 lb 2 oz 168 lb 6.4 oz Last Vital Signs Temp Pulse Resp BP Pulse Ox 98.1 F 64 18 118/62 89 L 08/22/16 06:00 08/22/16 11:34 08/22/16 09:00 08/22/16 06:00 08/22/16 11:34 Active Medications Acetaminophen (Tylenol -) 650 mg PO Q6H PRN PRN Reason: FEVER OR PAIN Amitriptyline HCl (Elavil -) 25 mg PO HS [facility] Last Admin: 08/21/16 21:35 Dose: 25 mg Aspirin (Ecotrin -) 81 mg PO DAILY [facility] Last Admin: 08/22/16 10:06 Dose: 81 mg Atorvastatin Calcium (Lipitor -) 20 mg PO HS [facility] Last Admin: 08/21/16 21:35 Dose: 20 mg Budesonide/Formoterol Fumarate (Symbicort 160/4.5mcg -) 2 puff IH BID [facility] Last Admin: 08/22/16 10:07 Dose: 2 puff Carvedilol (Coreg -) 6.25 mg PO BID [facility] Last Admin: 08/22/16 10:06 Dose: 6.25 mg Enoxaparin Sodium (Lovenox -) 40 mg SQ DAILY [facility] Last Admin: 08/22/16 10:06 Dose: 40 mg Gabapentin (Neurontin -) 300 mg PO BID [facility] Last Admin: 08/22/16 10:06 Dose: 300 mg Glipizide (Glucotrol -) 2.5 mg PO BIDAC [facility] Last Admin: 08/22/16 06:08 Dose: 2.5 mg Guaifenesin (Robitussin -) 10 ml PO Q8H PRN PRN Reason: COUGH Last Admin: 08/20/16 09:22 Dose: 10 ml Insulin Aspart (Novolog Vial Sliding Scale -) 1 vial SQ TIDAC [facility] PRN Reason: Protocol Last Admin: 08/22/16 06:08 Dose: 8 units Insulin Detemir (Levemir Vial) 14 units SQ HS [facility] Last Admin: 08/21/16 21:34 Dose: 14 units Levothyroxine Sodium (Synthroid -) 100 mcg PO DAILY [facility] Last Admin: 08/22/16 10:06 Dose: 100 mcg Memantine (Namenda -) 5 mg PO BID [facility] Last Admin: 08/22/16 10:06 Dose: 5 mg Metformin HCl (Glucophage -) 250 mg PO BIDAC [facility] Last Admin: 08/22/16 06:08 Dose: 250 mg Methylprednisolone Sodium Succinate (Solu-Medrol -) 40 mg IVPB BID [facility] Last Admin: 08/22/16 10:07 Dose: 40 mg Pantoprazole Sodium (Protonix -) 40 mg PO DAILY [facility] Last Admin: 08/22/16 10:06 Dose: 40 mg Ramipril (Altace -) 5 mg PO DAILY [facility] Last Admin: 08/22/16 10:06 Dose: 5 mg Constitutional: Yes: NAD, obese Eyes: Yes: WNL HENT: Yes: WNL Neck: Yes: WNL Cardiovascular: Yes: Regular Rate and Rhythm, S1, S2 Respiratory: Yes: Scattered rhonchi, no wheezing Gastrointestinal: Yes: Normal Bowel Sounds, Soft Musculoskeletal: Yes: Muscle Weakness Edema: No Labs: Laboratory Results - last 24 hr 08/21/16 08/21/16 08/22/16 17:51 21:27 05:43 POC Glucometer 324 299 308 08/22/16 12:26 POC Glucometer 217 Assessment/Plan A/P Acute COPD Exacerbation Influenza A HTN DM Hypercholesterolemia - Can likely change to Prednisone - inhaled bronchodilators - O2 as needed - DVT prophylaxis - PFTs as outpatient Dr Morocho Problem List - Problems (1) Chest discomfort Code(s): R07.89 - OTHER CHEST PAIN (2) Cough Code(s): R05 - COUGH (3) Hypercholesterolemia Code(s): E78.0 - PURE HYPERCHOLESTEROLEMIA * DO NOT USE * (4) Hypertension Code(s): I10 - ESSENTIAL (PRIMARY) HYPERTENSION Qualifiers: Hypertension type: essential hypertension Qualified Code(s): I10 - Essential (primary) hypertension (5) Influenza A Code(s): J10.1 - FLU DUE TO OTH IDENT INFLUENZA VIRUS W OTH RESP MANIFEST (6) Shortness of breath Code(s): R06.02 - SHORTNESS OF BREATH (7) COPD exacerbation Code(s): J44.1 - CHRONIC OBSTRUCTIVE PULMONARY DISEASE W (ACUTE) EXACERBATION (8) Diabetes Code(s): E11.9 - TYPE 2 DIABETES MELLITUS WITHOUT COMPLICATIONS Qualifiers: Diabetes mellitus type: type 2 Diabetes mellitus complication status: without complication Diabetes mellitus mcc insulin use: without mcc use Qualified Code(s): E11.9 - Type 2 diabetes mellitus without complications (9) Diabetic neuropathy Code(s): E11.40 - TYPE 2 DIABETES MELLITUS WITH DIABETIC NEUROPATHY, UNSP Qualifiers: Diabetes mellitus type: type 2 (10) Hypothyroidism Code(s): E03.9 - HYPOTHYROIDISM, UNSPECIFIED Qualifiers: Hypothyroidism type: unspecified Qualified Code(s): E03.9 - Hypothyroidism, unspecified (11) Interstitial lung disease Code(s): J84.9 - INTERSTITIAL PULMONARY DISEASE, UNSPECIFIED (12) Multiple nevi Code(s): D22.9 - MELANOCYTIC NEVI, UNSPECIFIED
[2016-08-22] MEDS: AMITRIPTYLINE HCL 25 MG TABLET (FP) PO SCH (21:16)
[2016-08-22] MEDS: ATORVASTATIN CA 20 MG TABLET (FP) PO SCH (21:16)
[2016-08-22] MEDS: INSULIN DETEMIR 100 UNITS/ML MDV SQ SCH (21:17)
[2016-08-22] MEDS ORDERED: ALBUTEROL SO4 0.083% IH SOL 2.5 MG/3 ML VIAL.NEB. NEB ONE (21:51)
[2016-08-22] MEDS: ALBUTEROL SO4 0.083% IH SOL 2.5 MG/3 ML VIAL.NEB. NEB SCH (22:13)
[2016-08-23] MEDS: INSULIN SLIDING SCALE (NOVOLOG) 1 VIAL SQ SCH (06:01)
[2016-08-23] MEDS: metFORMIN HCL 500 MG TABLET (FP) PO SCH (06:01)
[2016-08-23] MEDS: glipiZIDE 5 MG TABLET (FP) PO SCH (06:02)
[2016-08-23] MEDS ORDERED: PT OWN MED DRAWER 7, Y5N ONE (09:19)
[2016-08-23 09:27] VITALS: BP 127/59; PULSE 84; TEMP 98.2
[2016-08-23] MEDS: ENOXAPARIN NA (PORCINE) 40 MG/0.4 ML DISP.SYRIN SQ SCH (09:28)
[2016-08-23] MEDS: GABAPENTIN 300 MG CAPSULE (FP) PO SCH (09:28)
[2016-08-23] MEDS: RAMIPRIL 5 MG CAPSULE (FP) PO SCH (09:28)
[2016-08-23] MEDS: MEMANTINE HCL 5 MG TABLET (UD) PO SCH (09:28)
[2016-08-23] MEDS: ASPIRIN COATED 81 MG TABLET.EC PO SCH (09:28)
[2016-08-23] MEDS: CARVEDILOL 6.25 MG TABLET (FP) PO SCH (09:28)
[2016-08-23] MEDS: LEVOTHYROXINE NA 100 MCG TABLET (FP) PO SCH (09:28)
[2016-08-23] MEDS: PANTOPRAZOLE 40 MG TABLET (FP) PO SCH (09:28)
[2016-08-23] MEDS: methylPREDNISolone NA SUCC 40 MG/1 ML VIAL IVPB SCH (09:28)
--- NOTE | 2016-08-23 09:29 | PN ---
Progress Note, Physician History of Present Illness: Dyspnea improved, non-productive cough resolved. - Current Medication List Current Medications: Active Medications Acetaminophen (Tylenol -) 650 mg PO Q6H PRN PRN Reason: FEVER OR PAIN Amitriptyline HCl (Elavil -) 25 mg PO HS [facility] Last Admin: 08/22/16 21:16 Dose: 25 mg Aspirin (Ecotrin -) 81 mg PO DAILY [facility] Last Admin: 08/23/16 09:28 Dose: 81 mg Atorvastatin Calcium (Lipitor -) 20 mg PO HS [facility] Last Admin: 08/22/16 21:16 Dose: 20 mg Budesonide/Formoterol Fumarate (Symbicort 160/4.5mcg -) 2 puff IH BID [facility] Last Admin: 08/22/16 21:16 Dose: 2 pfu Carvedilol (Coreg -) 6.25 mg PO BID [facility] Last Admin: 08/23/16 09:28 Dose: 6.25 mg Enoxaparin Sodium (Lovenox -) 40 mg SQ DAILY [facility] Last Admin: 08/23/16 09:28 Dose: 40 mg Gabapentin (Neurontin -) 300 mg PO BID [facility] Last Admin: 08/23/16 09:28 Dose: 300 mg Glipizide (Glucotrol -) 2.5 mg PO BIDAC [facility] Last Admin: 08/23/16 06:02 Dose: 2.5 mg Guaifenesin (Robitussin -) 10 ml PO Q8H PRN PRN Reason: COUGH Last Admin: 08/20/16 09:22 Dose: 10 ml Insulin Aspart (Novolog Vial Sliding Scale -) 1 vial SQ TIDAC [facility] PRN Reason: Protocol Last Admin: 08/23/16 06:01 Dose: 8 units Insulin Detemir (Levemir Vial) 14 units SQ [facility] Last Admin: 08/22/16 21:17 Dose: 14 units Levothyroxine Sodium (Synthroid -) 100 mcg PO DAILY [facility] Last Admin: 08/23/16 09:28 Dose: 100 mcg Memantine (Namenda -) 5 mg PO BID [facility] Last Admin: 08/23/16 09:28 Dose: 5 mg Metformin HCl (Glucophage -) 250 mg PO BIDAC [facility] Last Admin: 08/23/16 06:01 Dose: 250 mg Methylprednisolone Sodium Succinate (Solu-Medrol -) 40 mg IVPB BID [facility] Last Admin: 02/01/17 09:28 Dose: 40 mg Pantoprazole Sodium (Protonix -) 40 mg PO DAILY [facility] Last Admin: 08/23/16 09:28 Dose: 40 mg Ramipril (Altace -) 5 mg PO DAILY [facility] Last Admin: 08/23/16 09:28 Dose: 5 mg - Objective Vital Signs: Vital Signs Temperature 98.2 F 08/23/16 09:26 Pulse Rate 84 08/23/16 09:26 Respiratory Rate 18 08/23/16 09:26 Blood Pressure 127/59 08/23/16 09:26 O2 Sat by Pulse Oximetry (%) 95 08/22/16 21:00 Constitutional: Yes: No Distress, Calm Neck: Yes: Supple Cardiovascular: Yes: Regular Rate and Rhythm Respiratory: Yes: Regular, Diminished, On Nasal O2 Gastrointestinal: Yes: Normal Bowel Sounds, Soft Edema: No Labs: CBC, BMP 08/21/16 06:30 08/21/16 06:30 Problem List - Problems (1) Hypertension Code(s): I10 - ESSENTIAL (PRIMARY) HYPERTENSION Qualifiers: Hypertension type: essential hypertension Qualified Code(s): I10 - Essential (primary) hypertension (2) Influenza A Code(s): J10.1 - FLU DUE TO OTH IDENT INFLUENZA VIRUS W OTH RESP MANIFEST (3) COPD exacerbation Code(s): J44.1 - CHRONIC OBSTRUCTIVE PULMONARY DISEASE W (ACUTE) EXACERBATION (4) Hyperlipidemia associated with type 2 diabetes mellitus Code(s): E11.69 - TYPE 2 DIABETES MELLITUS WITH OTHER SPECIFIED COMPLICATION E78.5 - HYPERLIPIDEMIA, UNSPECIFIED (5) Hypothyroidism Code(s): E03.9 - HYPOTHYROIDISM, UNSPECIFIED Qualifiers: Hypothyroidism type: unspecified Qualified Code(s): E03.9 - Hypothyroidism, unspecified (6) Interstitial lung disease Code(s): J84.9 - INTERSTITIAL PULMONARY DISEASE, UNSPECIFIED Assessment/Plan 1. Acute COPD exacerbation improving 2. Influenza A 3. CAD with history of subendocardial ischemia 4. HTN 5. Type 2 DM 6. Hypercholesterolemia 7. Lower extremity numbness with underlying history of diabetic neuropathy 8. Hypothyroidism PLAN: 1. Continue Carvedilol 6.25 bid and Ramipril 2.5 qd with uptitration as tolerated 2. Continue Lipitor 20 qhs and ASA 81 qd 3. Off antibiotics, continue bronchodilators, O2 as needed and start steroid taper 4. DVT and GI prophylaxis 5. Additional cardiovascular evaluation including MPI study can be done as outpatient 6. PFTs as outpatient
[2016-08-23] MEDS ORDERED: predniSONE 20 MG TABLET (UD) PO SCH (10:00)
--- NOTE | 2016-08-23 10:06 | DS ---
Physical Examination Vital Signs: Vital Signs Temperature 98.2 F 08/23/16 09:26 Pulse Rate 84 08/23/16 09:26 Respiratory Rate 18 08/23/16 09:26 Blood Pressure 127/59 08/23/16 09:26 O2 Sat by Pulse Oximetry (%) 95 08/22/16 21:00 Constitutional: Yes: No Distress, Calm Cardiovascular: Yes: Regular Rate and Rhythm Respiratory: Yes: Diminished. No: Rales, Rhonchi Gastrointestinal: Yes: Normal Bowel Sounds, Soft. No: Distention, Tenderness Edema: No Labs: CBC, BMP 08/21/16 06:30 08/21/16 06:30 Discharge Summary Reason For Visit: SOB,COUGH,CHEST DISCOMFORT Current Active Problems Chest discomfort (Acute) Cough (Acute) Hypercholesterolemia (Acute) Hypersensitivity pneumonitis (Acute) Hypertension (Acute) Influenza A (Acute) Radiculopathy (Acute) Shortness of breath (Acute) Subendocardial ischemia (Acute) Hospital Course: Admitted for COPD exacerbation CT chest showed hypersensitvity pneumonitis due to Influenza she was treated for Influenza in prior admission She was seen by cardiology, Pulmonary and ID She will need stress test as an outpt PFT as an outpt Pt is better ambulating better Stable for dc home-- with VNS left message with her daughter today Condition: Good - Instructions Referrals: Ronit Earzo MD [Primary Care Provider] - Ken Gatica MD [Staff Physician] - 2 Weeks (stress test ) Disposition: HOME - Home Medications Comprehensive Discharge Medication List: Ambulatory Orders Glipizide/Metformin HCl [Metaglip 2.5-250 mg Tablet] 1 each PO BID 09/03/15 Acetaminophen [Tylenol .Regular Strength -] 650 mg PO Q6H PRN #0 tablet Amitriptyline HCl [Elavil -] 25 mg PO DAILY 08/10/16 Levothyroxine Sodium [Levo-T] 100 mcg PO DAILY 08/10/16 Memantine HCl [Namenda Xr] 14 mg PO DAILY 08/10/16 Albuterol 2.5/Ipratropium 0.5 [Duoneb -] 1 amp NEB Q4H PRN #0 amp 08/14/16 Atorvastatin Ca [Lipitor] 20 mg PO HS tablet 08/14/16 Budesonide/Formeterol Fumarate [SYMBICORT 160/4.5mcg -] 1 puff IH BID inhaler 08/14/16 Carvedilol [Coreg -] 3.125 mg PO BID tablet 08/14/16 Gabapentin [Neurontin -] 300 mg PO BID capsule 08/14/16 Guaifenesin [Robitussin -] 10 ml PO Q8H PRN #0 cup 08/14/16 Levofloxacin [Levaquin] 500 mg PO 5XD #5 tablet 08/14/16 Pantoprazole Sodium [Protonix -] 40 mg PO DAILY #30 tablet.ec 08/14/16 Prednisone [Deltasone -] 10 mg PO ASDIR #30 tablet 08/14/16 Ramipril [Altace] 2.5 mg PO DAILY #30 capsule 08/14/16
[2016-08-23] MEDS: BUDESONIDE/FORMETEROL FUMARATE 160/4.5 mcg INHALER IH SCH (10:13)
[2016-08-23] MEDS ORDERED: valACYclovir HCL 500 MG TABLET (FP) PO SCH ×2 (10:35→14:00)
[2016-08-23] MEDS ORDERED: valACYclovir HCL 500 MG TABLET (FP) PO ONE (11:31)
== END 2016-08-23 11:57 | disposition home or self-care (01) | DRG 191 ==
LOC: JER 04:12 → JERBED 09:46 → J4S 19:25
PROVIDERS: ADMIT Internal Medicine; ATTEND Internal Medicine
DX: J44.1 Chronic obstructive pulmonary disease with (acute) exacerbation (principal); J84.9 Interstitial pulmonary disease, unspecified; I24.8 Other forms of acute ischemic heart disease; I10 Essential (primary) hypertension; E78.5 Hyperlipidemia, unspecified; E11.40 Type 2 diabetes mellitus with diabetic neuropathy, unspecified; E11.65 Type 2 diabetes mellitus with hyperglycemia; Z79.84 Long term (current) use of oral hypoglycemic drugs; Z99.81 Dependence on supplemental oxygen; I25.119 Atherosclerotic heart disease of native coronary artery with unspecified angina pectoris; B02.9 Zoster without complications
CPT/HCPCS: 36415; 71020-TC; 71250-TC; 72100-TC; 80048; 80053; 82550; 83520; 84484; 85025; 85651; 86038; 86140; 86256; 86431; 87070; 87116; 87205; 87206; 87389; 93005; 93010; 94640; 94761; 99285-25

== ENCOUNTER 2016-08-29 09:07 | Inpatient (IN) | payer OTHER ==
--- NOTE | 2016-08-29 09:50 | PDOC ---
History of Present Illness - General History Source: Patient Exam Limitations: No Limitations <Abraham Campos - Last Filed: 08/29/16 11:33> - General History Source: Patient, Family Exam Limitations: No Limitations - History of Present Illness Initial Comments: 08/29/16 11:59 The patient is a 70 year old female with significant past medical history of hypertension, hyperlipidemia, diabetes, left breast CA, and hypothyroidism who presents to the emergency department with SOB and cough. She reports productive cough with yellow phlegm. She notes that she has been experiencing chest burning when she woke up this morning that is alleviated by cough and nebulizer treatment. Patient states that she started to feel worse yesterday and the daughter gave her 3 breathing treatments yesterday. Patient was seen 08/14 and was discharged home with Influenza A, but patient returned on the 08/15 and was admitted for COPD exacerbation was on prednisone and levaquin and was discharged home 08/23 on prednisone. She notes that the patient was improving and feeling slightly better but started to feel worse yesterday, she started to feel dizzy, constipated and developed a headache. Daughter notes that the medication that she was discharged home with was not received until 3 days after her discharge due to some pharmacy issue. She notes that she is still on prednisone taper day 4 today. As per daughter the patient was not on home O2 because there is a problem with the pump but home nurse has been checking her O2 levels as per daughter. She denies fever, chills, nausea, vomiting, diarrhea or abdominal pain. She denies orthopnea. SH: never smoker, but notes that people in her living facility smoke, so she has concerns for second hand smoke PCP - Dr. Castro Florentino- daughter ([phone]) <Windy Dutta - Last Filed: 08/29/16 12:01> - General Chief Complaint: Respiratory Stated Complaint: SOB&PRODUCTIVE COUGH Time Seen by Provider: 08/29/16 09:17 Past History - Past Medical History Cancer: Yes (LEFT BREAST) Diabetes: Yes HTN: Yes Hypercholesterolemia: Yes Suicide Attempt (Hx): No - Surgical History Abdominal Surgery: No - Immunization History Immunization Up to Date: Yes - Psycho/Social/Smoking Cessation Hx Anxiety: No Suicidal Ideation: No Smoking Status: No Smoking History: Never smoked Have you smoked in the past 12 months: No Number of Cigarettes Smoked Daily: 0 Cigars Per Day: 0 Hx Alcohol Use: No Drug/Substance Use Hx: No Substance Use Type: None Hx Substance Use Treatment: No <Abraham Campos - Last Filed: 08/29/16 11:33> <Windy Dutta - Last Filed: 08/29/16 12:01> - Past Medical History Allergies/Adverse Reactions: Allergies Allergy/AdvReac Type Severity Reaction Status Date / Time No Known Allergies Allergy Verified 08/29/16 09:11 Home Medications: Ambulatory Orders Glipizide/Metformin HCl [Metaglip 2.5-250 mg Tablet] 1 each PO BID 09/03/15 Acetaminophen [Tylenol .Regular Strength -] 650 mg PO Q6H PRN #0 tablet Amitriptyline HCl [Elavil -] 25 mg PO DAILY 08/10/16 Levothyroxine Sodium [Levo-T] 100 mcg PO DAILY 08/10/16 Memantine HCl [Namenda Xr] 14 mg PO DAILY 08/10/16 Albuterol 2.5/Ipratropium 0.5 [Duoneb -] 1 amp NEB Q4H PRN #0 amp 08/14/16 Atorvastatin Ca [Lipitor] 20 mg PO HS tablet 08/14/16 Budesonide/Formeterol Fumarate [SYMBICORT 160/4.5mcg -] 1 puff IH BID inhaler 08/14/16 Gabapentin [Neurontin -] 300 mg PO BID capsule 08/14/16 Guaifenesin [Robitussin -] 10 ml PO Q8H PRN #0 cup 08/14/16 Pantoprazole Sodium [Protonix -] 40 mg PO DAILY #30 tablet.ec 08/23/16 Valacyclovir HCl [Valtrex -] 1,000 mg PO TID #15 tablet 08/23/16 Prednisone 10 mg PO ASDIR 08/29/16 Review of Systems - Review of Systems Able to Perform ROS?: Yes Comments:: 08/29/16 12:00 CONSTITUTIONAL: No reported: Fever, Chills, Diaphoresis, Generalized Weakness, Malaise, Loss of Appetite HEENT: No reported: Rhinorrhea, Nasal Congestion, Throat Pain, Throat Swelling, Difficulty Swallowing, Mouth Swelling, Ear Pain, Eye Pain, Visual Changes CARDIOVASCULAR: Reported: chest burning No reported: Chest Pain, Syncope, Palpitations, Irregular Heart Rate, Lightheadedness, Peripheral Edema RESPIRATORY: Reported: Cough, Shortness of Breath, SOB with Exertion, No reported: Orthopnea, Wheezing, Stridor, Hemoptysis GASTROINTESTINAL: No reported: Abdominal pain, Abdominal Distension, Nausea, Vomiting, Diarrhea, Constipation, Melena, Hematochezia GENITOURINARY: No reported: Dysuria, Frequency, Urgency, Hesitancy, Flank Pain, Genital Pain MUSCULOSKELETAL: No reported: Myalgia, Arthralgia, Joint Swelling, Back pain, Neck Pain SKIN: No reported: Rash, Itching, Pallor HEMEATOLOGIC/IMMUNOLOGIC: No reported: Easy Bleeding, Easy Bruising, Lymphadenopathy, Frequent infections ENDOCRINE: No reported: Unexplained Weight Gain, Unexplained Weight Loss, Heat Intolerance , Cold Intolerance NEUROLOGIC: No reported: Headache, Focal Weakness, Paresthesias, Vertigo, Lightheadedness, Unsteady Gait, Seizure, Mental Status Changes, Incontinence PSYCHIATRIC: No reported: Anxiety, Depression <Windy Dutta - Last Filed: 08/29/16 12:01> *Physical Exam - Vital Signs Last Vital Signs Temp Pulse Resp BP Pulse Ox 98.2 F 107 H 20 139/71 95 08/29/16 09:11 08/29/16 09:11 08/29/16 09:11 08/29/16 09:11 08/29/16 09:11 <Abraham Campos - Last Filed: 08/29/16 11:33> - Vital Signs Last Vital Signs Temp Pulse Resp BP Pulse Ox 98.2 F 90 18 149/65 95 08/29/16 09:11 08/29/16 11:50 08/29/16 11:50 08/29/16 11:50 08/29/16 11:50 - Physical Exam Comments: 08/29/16 12:00 GENERAL: The patient is awake, alert, and fully oriented, Nontoxic - in no acute distress. HEAD: Normocephalic, atraumatic. EYES: extraocular movements intact, sclera anicteric, conjunctiva clear. ENT: Normal voice, Moist mucous membranes. NECK: Normal range of motion, supple LUNGS: +Fine crackles at expirations. Breath sounds equal, No rhonchi or wheezing appreciated. HEART: Regular rate and rhythm, without murmur, rub or gallop. ABDOMEN: Soft, nontender, normoactive bowel sounds. No guarding, no rebound.No CVA tenderness EXTREMITIES: Normal range of motion, no edema. No clubbing or cyanosis. No cords , erythema, or tenderness. NEUROLOGICAL: No facial asymmetry, Normal speech, moving all 4 extremities spontaneously and symmetrically PSYCH: Normal mood, normal affect. SKIN: Warm, Dry, normal turgor <Liliana Duttayna - Last Filed: 08/29/16 12:01> ED Treatment Course - LABORATORY CBC & Chemistry Diagram: 08/29/16 10:25 08/29/16 10:25 <Abraham Campos - Last Filed: 08/29/16 11:33> - LABORATORY CBC & Chemistry Diagram: 08/29/16 10:25 08/29/16 10:25 - ADDITIONAL ORDERS Additional order review: Laboratory Results 08/29/16 08/29/16 10:58 10:25 Puncture Site Right radial ABG pH 7.45 ABG pCO2 at Pt Temp 35.1 ABG pO2 at Pt Temp 67.3 L ABG HCO3 24.3 ABG O2 Sat (Measured) 94.2 ABG O2 Content 18.5 ABG Base Excess 1.3 Jh Test Positive Carboxyhemoglobin 1.5 Methemoglobin 1.7 H Oxygen Flow Rate Room air PEEP 0.0 Sodium 133 L Potassium 3.9 Chloride 94 L Carbon Dioxide 26 Anion Gap 13 BUN 21 H Creatinine 0.7 Creat Clearance w eGFR > 60 Random Glucose 230 H D Calcium 9.0 Magnesium 1.8 Total Bilirubin 1.0 AST 15 D ALT 31 D Alkaline Phosphatase 82 Creatine Kinase 55 Troponin I 0.09 H B-Natriuretic Peptide 71.17 Total Protein 7.0 Albumin 3.5 08/29/16 10:25 RBC 5.00 MCV 87.8 MCHC 33.2 RDW 13.2 MPV 9.1 Neutrophils % 88.7 H Lymphocytes % 6.3 L D Monocytes % 4.3 D Eosinophils % 0.3 Basophils % 0.4 - Medications Given in the ED: ED Medications Discontinued Medications Generic Name Dose Route Start Last Admin Trade Name Freq PRN Reason Stop Dose Admin Acetaminophen 650 mg 08/29/16 10:09 08/29/16 10:28 Tylenol - PO 08/29/16 10:10 650 mg ONCE ONE Administration Al Hydroxide/Mg Hydroxide 30 ml 08/29/16 10:06 08/29/16 10:28 Mylanta Suspension - PO 08/29/16 10:07 30 ml ONCE ONE Administration Albuterol/Ipratropium 1 amp 08/29/16 10:06 08/29/16 10:30 Duoneb - NEB 08/29/16 10:07 1 amp ONCE ONE Administration Aspirin 162 mg 08/29/16 11:30 08/29/16 11:48 Asa - PO 08/29/16 11:31 162 mg ONCE ONE Administration Famotidine/Sodium Chloride 20 50 mls @ 100 mls/hr 08/29/16 10:06 08/29/16 10:28 mg/ Miscellaneous IVPB 08/29/16 10:35 100 mls/hr ONCE ONE Administration Sodium Chloride 1,000 mls @ 1,000 mls/hr 08/29/16 11:26 08/29/16 11:34 Normal Saline - IV 08/29/16 12:25 Not Given .Q1H ONE <Windy Dtuta - Last Filed: 08/29/16 12:01> Medical Decision Making - Medical Decision Making 08/29/16 11:29 08/29/16 10:08 70y F hx of htn, hl, dm, breast ca, with recent admission for influenza/ pneumonotis and COPD exacerbation presents with worsening shortness of breath/ cough since last night, this morning the pt also endorses having chest burning when she awoke as well as a mild headache. No associated fever/chills, leg swelling, orthopnea. Pt does note that her sypmtoms improves with nebulilizers at home. on exam pt is in no acute distress but she is generally weak appearing. her pulm exam shows some expiratory crackles, her vitals noted for mild tachycardia to 107 and her o2 is 95% on RA, which seems improved from d/c 1 week ago. differential includes possible copd exacerbation, pna, chf, viral syndrome, acs will ck labs, cxr, ekg will reasses after nebs will discuss with dr. Baird A portion of this note was documented by scribe services under my direction. I have reviewed the details of the note, within reason, and agree with the documentation with the following case summary and management plan written by me 08/29/16 11:29 pts labs reviewed leukcoytosis w/ left shift but this is likely seconary to her steroid use the pts vbg is fairly normal, and cmp wnl trop at 0.09 the pts ekg shows new TWI and flattening of I - when compared to EKG dated 2016 pt was give asa case dw dr. baird will place on tele obs will notify dr chin for consultation after discussion w/ dr baird, suspects pt has some chronic lung disease, ? interestitial lung disease - her cxr shows some changes however, these were present on xrays predating her recent illness. Case discussed in detail with admitting physician including history, physical exam and ancillary studies. Admitting physician has assumed care for the patient, will follow all pending diagnostics and will complete the evaluation and treatment. 08/29/16 11:[address] chin agree with mangaement will see pt later. <Abraham Campos - Last Filed: 08/29/16 11:33> *DC/Admit/Observation/Transfer - Discharge Dispostion Admit: Yes <Abraham Campos - Last Filed: 08/29/16 11:33> - Attestations Scribe Attestion: 08/29/16 12:00 Documentation prepared by ANNE Villalpando, acting as faculty i on call medical assistant for Abraham Capmos MD. <Windy Dutta - Last Filed: 08/29/16 12:01> Diagnosis at time of Disposition: Shortness of breath, Chest discomfort, Acute electrocardiogram changes - Referrals
[2016-08-29] MEDS ORDERED: ALBUTEROL SO4 2.5/IPRATROPIUM 0.5 INH SOL 3 ML VIAL.NEB. NEB ONE (10:06)
[2016-08-29] MEDS ORDERED: FAMOTIDINE 20 MG/50 ML IVPB 20 MG in PREMIX 50 IVPB ONE (10:06)
[2016-08-29] MEDS ORDERED: MAG HYDROX/AL HYDROX/SIMETH 355 ML ORAL.SUSP PO ONE (10:06)
[2016-08-29] MEDS ORDERED: ACETAMINOPHEN 325 MG TABLET (FP) PO ONE (10:09)
[2016-08-29] MEDS ORDERED: ACETAMINOPHEN 325 MG TABLET (FP) ONE (10:12)
[2016-08-29] MEDS ORDERED: FAMOTIDINE 20 MG/50 ML IVPB 50 ML IVPB ONE (10:12)
[2016-08-29] MEDS ORDERED: MAG HYDROX/AL HYDROX/SIMETH 30 ML UNIT-DOSE CUP ONE (10:12)
[2016-08-29 10:34] LABS: BASOPHIL 0.4 % (0-2.0); EOSINOPHIL 0.3 % (0-4.5); MCH 29.2 pg (25.7-33.7); MCHC 33.2 g/dl (32.0-36.0); MEAN CELL VOLUME 87.8 fl (80-96); MEAN PLT VOLUME 9.1 fl (7.5-11.1); NEUTROPHILS 88.7 % (42.8-82.8); PLATELET COUNT 167 K/MM3 (134-434); RDW 13.2 % (11.6-15.6); WHITE BLOOD COUNT 18.3 K/mm3 (4.0-10.0)
[2016-08-29 10:57] LABS: ALBUMIN 3.5 g/dl (3.4-5.0); ANION GAP 13 (8-16); CO2 26 mmol/L (21-32); CREATININE 0.7 mg/dL (0.55-1.02); GLUCOSE,RANDOM 230 mg/dL (74-106); MAGNESIUM 1.8 mg/dL (1.8-2.4); SGPT/ALT 31 U/L (12-78)
[2016-08-29 11:01] LABS: ALK PHOS 82 U/L (45-117); TROPONIN I 0.09 ng/ml (0.00-0.05)
[2016-08-29 11:03] LABS: SGOT/AST 15 U/L (15-37)
[2016-08-29 11:10] LABS: ARTERIAL BLD GAS O2 SATURATION 94.2 % (90-98.9); ARTERIAL BLOOD GAS BASE EXCESS 1.3 meq/l (-2-2); ARTERIAL BLOOD GAS HCO3 24.3 meq/L (22-26); ARTERIAL BLOOD GAS PO2 67.3 mmHg (70-100); ARTERIAL BLOOD GAS pH 7.45 (7.35-7.45)
[2016-08-29 11:11] LABS: ALLENS TEST POSITIVE; ART PUNCT SITE RIGHT RADIAL; LPM/O2% ROOM AIR; METHEMOGLOBIN 1.7 % (0.4-1.5); PT. ON O2? NO
[2016-08-29] MEDS ORDERED: SODIUM CHLORIDE 1,000 ML IV ONE (11:26)
[2016-08-29] MEDS ORDERED: SODIUM CHLORIDE 500 ML IV STA (11:27)
[2016-08-29] MEDS ORDERED: ASPIRIN 81 MG CHEWABLE TABLETS PO ONE (11:30)
[2016-08-29] MEDS ORDERED: ASPIRIN 81 MG CHEWABLE TABLETS ONE (11:38)
--- NOTE | 2016-08-29 11:51 | HP ---
Admitting History and Physical - Primary Care Physician PCP: Ronit Erazo - Admission Chief Complaint: chest pain , SOB History of Present Illness: ER HISTORY - History of Present Illness Initial Comments: 08/29/16 11:59 The patient is a 70 year old female with significant past medical history of hypertension, hyperlipidemia, diabetes, left breast CA, and hypothyroidism who presents to the emergency department with SOB and cough. She reports productive cough with yellow phlegm. She notes that she has been experiencing chest burning when she woke up this morning that is alleviated by cough and nebulizer treatment. Patient states that she started to feel worse yesterday and the daughter gave her 3 breathing treatments yesterday. Patient was seen 08/14 and was discharged home with Influenza A, but patient returned on the 08/15 and was admitted for COPD exacerbation was on prednisone and levaquin and was discharged home 08/23 on prednisone. She notes that the patient was improving and feeling slightly better but started to feel worse yesterday, she started to feel dizzy, constipated and developed a headache. Daughter notes that the medication that she was discharged home with was not received until 3 days after her discharge due to some pharmacy issue. She notes that she is still on prednisone taper day 4 today. As per daughter the patient was not on home O2 because there is a problem with the pump but home nurse has been checking her O2 levels as per daughter. She denies fever, chills, nausea, vomiting, diarrhea or abdominal pain. She denies orthopnea. SH: never smoker, but notes that people in her living facility smoke, so she has concerns for second hand smoke PCP - Dr. Castro Florentino- daughter ([phone]) PT SEEN BY ME IN THE ER Pt is sitting up This is the 3rd time pt is being admitted here. She woke up this AM with burning in her chest and SOB She was recently dc here for elevated troponins and COPD exacerbation. Discharged on PO Prednisone-- not completed yet. She was also advised to undergo cardiac and pulm work up afterwards. She is on home O2 but uses it as needed. She says she feels better after receiving treatment here. 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 No: Current Radiation Therapy Endocrine: Yes: Diabetes Mellitus, Hypothyroidism - Smoking History Smoking history: Never smoked Have you smoked in the past 12 months: No Aproximately how many cigarettes per day: 0 - Alcohol/Substance Use Hx Alcohol Use: No Home Medications - Allergies Allergies/Adverse Reactions: Allergies Allergy/AdvReac Type Severity Reaction Status Date / Time No Known Allergies Allergy Verified 08/29/16 09:11 - Home Medications Home Medications: Ambulatory Orders Glipizide/Metformin HCl [Metaglip 2.5-250 mg Tablet] 1 each PO BID 09/03/15 Acetaminophen [Tylenol .Regular Strength -] 650 mg PO Q6H PRN #0 tablet Amitriptyline HCl [Elavil -] 25 mg PO DAILY 08/10/16 Levothyroxine Sodium [Levo-T] 100 mcg PO DAILY 08/10/16 Memantine HCl [Namenda Xr] 14 mg PO DAILY 08/10/16 Albuterol 2.5/Ipratropium 0.5 [Duoneb -] 1 amp NEB Q4H PRN #0 amp 08/14/16 Atorvastatin Ca [Lipitor] 20 mg PO HS tablet 08/14/16 Budesonide/Formeterol Fumarate [SYMBICORT 160/4.5mcg -] 1 puff IH BID inhaler 08/14/16 Gabapentin [Neurontin -] 300 mg PO BID capsule 08/14/16 Guaifenesin [Robitussin -] 10 ml PO Q8H PRN #0 cup 08/14/16 Pantoprazole Sodium [Protonix -] 40 mg PO DAILY #30 tablet.ec 08/23/16 Valacyclovir HCl [Valtrex -] 1,000 mg PO TID #15 tablet 08/23/16 Prednisone 10 mg PO ASDIR 08/29/16 Review of Systems - Review of Systems Constitutional: denies: Chills, Loss of Appetite, Weakness Cardiovascular: reports: Chest Pain, Shortness of Breath. denies: Palpitations Respiratory: reports: SOB. denies: Cough, Orthopnea, PND Physical Examination Vital Signs: Vital Signs Temperature 98.2 F 08/29/16 09:11 Pulse Rate 90 08/29/16 11:50 Respiratory Rate 18 08/29/16 11:50 Blood Pressure 149/65 08/29/16 11:50 O2 Sat by Pulse Oximetry (%) 95 08/29/16 11:50 Constitutional: Yes: No Distress, Calm Cardiovascular: Yes: Regular Rate and Rhythm Respiratory: Yes: Diminished, Rales (fine crackles B/L) Gastrointestinal: Yes: Normal Bowel Sounds, Soft. No: Distention, Tenderness Edema: No Psychiatric: Yes: Alert, Oriented Labs: Laboratory Last Values WBC 18.3 K/mm3 (4.0-10.0) H 08/29/16 10:25 RBC 5.00 M/mm3 (3.60-5.2) 08/29/16 10:25 Hgb 14.6 GM/dL (10.7-15.3) 08/29/16 10:25 Hct 43.9 % (32.4-45.2) 08/29/16 10:25 MCV 87.8 fl (80-96) 08/29/16 10:25 MCHC 33.2 g/dl (32.0-36.0) 08/29/16 10:25 RDW 13.2 % (11.6-15.6) 08/29/16 10:25 Plt Count 167 K/MM3 (134-434) D 08/29/16 10:25 MPV 9.1 fl (7.5-11.1) 08/29/16 10:25 Neutrophils % 88.7 % (42.8-82.8) H 08/29/16 10:25 Lymphocytes % 6.3 % (8-40) L D 08/29/16 10:25 Monocytes % 4.3 % (3.8-10.2) D 08/29/16 10:25 Eosinophils % 0.3 % (0-4.5) 08/29/16 10:25 Basophils % 0.4 % (0-2.0) 08/29/16 10:25 Puncture Site Right radial 08/29/16 10:58 ABG pH 7.45 (7.35-7.45) 08/29/16 10:58 ABG pCO2 at Pt Temp 35.1 mmHg (35-45) 08/29/16 10:58 ABG pO2 at Pt Temp 67.3 mmHg (70-100) L 08/29/16 10:58 ABG HCO3 24.3 meq/L (22-26) 08/29/16 10:58 ABG O2 Sat (Measured) 94.2 % (90-98.9) 08/29/16 10:58 ABG O2 Content 18.5 % vol (15-22) 08/29/16 10:58 ABG Base Excess 1.3 meq/l (-2-2) 08/29/16 10:58 Jh Test Positive 08/29/16 10:58 Carboxyhemoglobin 1.5 gm% (0.5-2.0) 08/29/16 10:58 Methemoglobin 1.7 % (0.4-1.5) H 08/29/16 10:58 Oxygen Flow Rate Room air 08/29/16 10:58 PEEP 0.0 cmH2O 08/29/16 10:58 Sodium 133 mmol/L (136-145) L 08/29/16 10:25 Potassium 3.9 mmol/L (3.5-5.1) 08/29/16 10:25 Chloride 94 mmol/L (98-107) L 08/29/16 10:25 Carbon Dioxide 26 mmol/L (21-32) 08/29/16 10:25 Anion Gap 13 (8-16) 08/29/16 10:25 BUN 21 mg/dL (7-18) H 08/29/16 10:25 Creatinine 0.7 mg/dL (0.55-1.02) 08/29/16 10:25 Creat Clearance w eGFR > 60 (>60) 08/29/16 10:25 Random Glucose 230 mg/dL (74-106) H D 08/29/16 10:25 Calcium 9.0 mg/dL (8.5-10.1) 08/29/16 10:25 Magnesium 1.8 mg/dL (1.8-2.4) 08/29/16 10:25 Total Bilirubin 1.0 mg/dL (0.2-1.0) 08/29/16 10:25 AST 15 U/L (15-37) D 08/29/16 10:25 ALT 31 U/L (12-78) D 08/29/16 10:25 Alkaline Phosphatase 82 U/L (45-117) 08/29/16 10:25 Creatine Kinase 55 IU/L (26-192) 08/29/16 10:25 Troponin I 0.09 ng/ml (0.00-0.05) H 08/29/16 10:25 B-Natriuretic Peptide 71.17 pg/ml (5-125) 08/29/16 10:25 Total Protein 7.0 g/dl (6.4-8.2) 08/29/16 10:25 Albumin 3.5 g/dl (3.4-5.0) 08/29/16 10:25 Imaging - Results Chest X-ray: Image Reviewed (interstitial markings , no infiltrate) EKG: Image Reviewed (NSR, T wave inversions in AVL) Problem List - Problems (1) Acute electrocardiogram changes Code(s): R94.31 - ABNORMAL ELECTROCARDIOGRAM [ECG] [EKG] (2) Chest discomfort Code(s): R07.89 - OTHER CHEST PAIN (3) Hypertension Code(s): I10 - ESSENTIAL (PRIMARY) HYPERTENSION Qualifiers: Hypertension type: essential hypertension Qualified Code(s): I10 - Essential (primary) hypertension (4) Shortness of breath Code(s): R06.02 - SHORTNESS OF BREATH (5) Diabetes Code(s): E11.9 - TYPE 2 DIABETES MELLITUS WITHOUT COMPLICATIONS Qualifiers: Diabetes mellitus type: type 2 Diabetes mellitus complication status: without complication Diabetes mellitus superintendent marine oil terminal insulin use: without superintendent marine oil terminal use Qualified Code(s): E11.9 - Type 2 diabetes mellitus without complications Assessment/Plan PLAN -- Admit pt for observation. -- Pulmonary and Cardiology evaluation -- serial cardiac enzymes to R/O ACS -- PO Predispose -- Nebs as needed --O 2 as needed -- continue with meds -- DVT prophylaxis -- Lovenox
--- NOTE | 2016-08-29 15:33 | CON.PULM ---
Consult Consult Specialty:: PULM/CCM Referred by:: ATIF Reason for Consultation:: SOB / CP - History of Present Illness Chief Complaint: SOB / burning CP History of Present Illness: 70 F, well known to me with listed medical history. Multiple recent admission to [facility] due to Influenza and (+) troponin. This is her third visit to the hospital. On review of her previous diagnostics/radiographs, she has a chronic nondescript ILD. Repeat imaging on her last admission revealed increased reticular interstitial changes without significant bronchiectasis or fibrosis. There are no areas of honeycombing. According to the patient she has not had a formal workup of this process. It does not seem that any tissue diagnosis was made. She turns for burning CP. She is seen in the ER. She is no acute distress on RA. Reports some residual cough. No fever or chills. No hemoptysis. No night sweats. 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 (Mild cognitive defect) Cardio/Vascular: Yes: HTN, Hyperlipdemia Endocrine: Yes: Diabetes Mellitus, Hypothyroidism - Alcohol/Substance Use Hx Alcohol Use: No - Smoking History Smoking history: Never smoked Have you smoked in the past 12 months: No Aproximately how many cigarettes per day: 0 Home Medications - Allergies Allergies/Adverse Reactions: Allergies Allergy/AdvReac Type Severity Reaction Status Date / Time No Known Allergies Allergy Verified 08/29/16 09:11 - Home Medications Home Medications: Ambulatory Orders Glipizide/Metformin HCl [Metaglip 2.5-250 mg Tablet] 1 each PO BID 09/03/15 Acetaminophen [Tylenol .Regular Strength -] 650 mg PO Q6H PRN #0 tablet Amitriptyline HCl [Elavil -] 25 mg PO DAILY 08/10/16 Levothyroxine Sodium [Levo-T] 100 mcg PO DAILY 08/10/16 Memantine HCl [Namenda Xr] 14 mg PO DAILY 08/10/16 Albuterol 2.5/Ipratropium 0.5 [Duoneb -] 1 amp NEB Q4H PRN #0 amp 08/14/16 Atorvastatin Ca [Lipitor] 20 mg PO HS tablet 08/14/16 Budesonide/Formeterol Fumarate [SYMBICORT 160/4.5mcg -] 1 puff IH BID inhaler 08/14/16 Gabapentin [Neurontin -] 300 mg PO BID capsule 08/14/16 Guaifenesin [Robitussin -] 10 ml PO Q8H PRN #0 cup 08/14/16 Pantoprazole Sodium [Protonix -] 40 mg PO DAILY #30 tablet.ec 08/23/16 Valacyclovir HCl [Valtrex -] 1,000 mg PO TID #15 tablet 08/23/16 Prednisone 10 mg PO ASDIR 08/29/16 Review of Systems - Review of Systems Constitutional: reports: Malaise, Weakness. denies: Chills, Fever, Night Sweats , Unintentional Wgt. Loss Eyes: reports: No Symptoms HENT: reports: No Symptoms. denies: Epistaxis, Nasal Congestion, Throat Pain Neck: reports: No Symptoms Cardiovascular: reports: Chest Pain, Shortness of Breath. denies: Edema, Palpitations Respiratory: reports: Cough, Snoring, SOB on Exertion. denies: Hemoptysis, Wheezing Gastrointestinal: reports: No Symptoms Genitourinary: reports: No Symptoms Breasts: reports: No Symptoms Reported Musculoskeletal: reports: No Symptoms Integumentary: reports: No Symptoms Neurological: reports: No Symptoms Endocrine: reports: No Symptoms Hematology/Lymphatic: reports: No Symptoms Psychiatric: reports: No Symptoms Physical Exam Vital Sings: Vital Signs Temperature 98.2 F 08/29/16 09:11 Pulse Rate 90 08/29/16 11:50 Respiratory Rate 18 08/29/16 11:50 Blood Pressure 149/65 08/29/16 11:50 O2 Sat by Pulse Oximetry (%) 95 08/29/16 11:50 Constitutional: Yes: No Distress, Anxious, Obese Eyes: Yes: Conjunctiva Clear, EOM Intact HENT: Yes: Atraumatic, Normocephalic Neck: Yes: Supple, Trachea Midline Cardiovascular: Yes: Regular Rate and Rhythm Respiratory: Yes: Cough, Diminished, Rhonchi. No: Accessory Muscle Use, Rales, Stridor, Tachypnea, Wheezes ...Inspection: Yes: WNL ...Clubbing: No Gastrointestinal: Yes: WNL, Normal Bowel Sounds, Soft, Abdomen, Obese Renal/: Yes: WNL Musculoskeletal: Yes: WNL Extremities: Yes: WNL Edema: No Peripheral Pulses WNL: Yes Integumentary: Yes: WNL Neurological: Yes: WNL, Alert, Oriented ...Motor Strength: WNL Psychiatric: Yes: WNL, Alert, Oriented Labs: ABG Results ABG pH 7.45 (7.35-7.45) 08/29/16 10:58 ABG pCO2 at Pt Temp 35.1 mmHg (35-45) 08/29/16 10:58 ABG pO2 at Pt Temp 67.3 mmHg (70-100) L 08/29/16 10:58 ABG HCO3 24.3 meq/L (22-26) 08/29/16 10:58 ABG O2 Sat (Measured) 94.2 % (90-98.9) 08/29/16 10:58 ABG O2 Content 18.5 % vol (15-22) 08/29/16 10:58 ABG Base Excess 1.3 meq/l (-2-2) 08/29/16 10:58 Imaging - Results Chest X-ray: Image Reviewed Problem List - Problems (1) Acute electrocardiogram changes Code(s): R94.31 - ABNORMAL ELECTROCARDIOGRAM [ECG] [EKG] (2) Chest discomfort Code(s): R07.89 - OTHER CHEST PAIN (3) Hypertension Code(s): I10 - ESSENTIAL (PRIMARY) HYPERTENSION Qualifiers: Hypertension type: essential hypertension Qualified Code(s): I10 - Essential (primary) hypertension (4) Influenza A Code(s): J10.1 - FLU DUE TO OTH IDENT INFLUENZA VIRUS W OTH RESP MANIFEST (5) Shortness of breath Code(s): R06.02 - SHORTNESS OF BREATH (6) Cough Code(s): R05 - COUGH (7) Diabetes Code(s): E11.9 - TYPE 2 DIABETES MELLITUS WITHOUT COMPLICATIONS Qualifiers: Diabetes mellitus type: type 2 Diabetes mellitus complication status: without complication Diabetes mellitus assistant terminal manager insulin use: without assistant terminal manager use Qualified Code(s): E11.9 - Type 2 diabetes mellitus without complications (8) Diabetic neuropathy Code(s): E11.40 - TYPE 2 DIABETES MELLITUS WITH DIABETIC NEUROPATHY, UNSP Qualifiers: Diabetes mellitus type: type 2 (9) Hypercholesterolemia Code(s): E78.0 - PURE HYPERCHOLESTEROLEMIA * DO NOT USE * (10) Hyperlipidemia associated with type 2 diabetes mellitus Code(s): E11.69 - TYPE 2 DIABETES MELLITUS WITH OTHER SPECIFIED COMPLICATION E78.5 - HYPERLIPIDEMIA, UNSPECIFIED (11) Hypothyroidism Code(s): E03.9 - HYPOTHYROIDISM, UNSPECIFIED Qualifiers: Hypothyroidism type: unspecified Qualified Code(s): E03.9 - Hypothyroidism, unspecified (12) Interstitial lung disease Assessment/Plan: Question of Hypersensitivity Pneumonitis on radiology report. Changes have been present on imaging since at least 2013. Definitive diagnosis can usually only be made by tissue diagnosis. Although difficult to categorize, her CT lacks honeycombing, fibrotic changes, bronchiectasis, etc. After she is medically stable, further workup is warranted. Code(s): J84.9 - INTERSTITIAL PULMONARY DISEASE, UNSPECIFIED (13) Radiculopathy Code(s): M54.10 - RADICULOPATHY, SITE UNSPECIFIED Assessment/Plan PLAN: Symbicort BID O2 as needed Noted cardiology consult has been called No smoking discussed Will review old records to see if any ILD workup has been initiated in the past. Can consider further ILD workup on discharge Would monitor off ABX for now Can monitor off systemic steroids Would continue her Prednsione at 40 mg OD Will follow Thank you. Dr Morocho
[2016-08-29] MEDS ORDERED: ALBUTEROL SO4 0.083% IH SOL 2.5 MG/3 ML VIAL.NEB. NEB PRN (16:05)
--- NOTE | 2016-08-29 16:42 | CON.CARD ---
Consult Consult Specialty:: Cardiology Referred by:: Dr. Erazo Reason for Consultation:: Cardiac evaluation - History of Present Illness Chief Complaint: SOB History of Present Illness: Patient is a 70 year old female of descent with underlying history of breast CA s/p mastectomy s/p chemotherapy without radiation therapy, negative metastatic disease, COPD, possible OSAS, ILD, HTN, hypercholesterolemia, type 2 diabetes mellitus, diabetic neuropathy, hypothyroidism and diastolic dysfunction. She was recently hospitalized for influenza and then readmitted with COPD exacerbation. Currently, she presents with increased shortness of breath and cough. She complains of productive cough with yellow sputum and chest burning sensation. She denies fever or chills. Denies headache or lightheadedness. She denies paroxysmal nocturnal dyspnea or orthopnea. She was given Prednisone and antibiotic last admission and now it's 3rd time that she is being hospitalized. She has O2 at home. 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 Cardio/Vascular: Yes: HTN, Hyperlipdemia, Other (demand ischemia) Pulmonary: Yes: COPD, Sleep Apnea, Other (Influenza) Heme/Onc: Yes: Cancer (breast ca) Endocrine: Yes: Diabetes Mellitus, Hypothyroidism - Alcohol/Substance Use Hx Alcohol Use: No - Smoking History Smoking history: Never smoked Have you smoked in the past 12 months: No Aproximately how many cigarettes per day: 0 Home Medications - Allergies Allergies/Adverse Reactions: Allergies Allergy/AdvReac Type Severity Reaction Status Date / Time No Known Allergies Allergy Verified 08/29/16 09:11 - Home Medications Home Medications: Ambulatory Orders Glipizide/Metformin HCl [Metaglip 2.5-250 mg Tablet] 1 each PO BID 09/03/15 Acetaminophen [Tylenol .Regular Strength -] 650 mg PO Q6H PRN #0 tablet Amitriptyline HCl [Elavil -] 25 mg PO DAILY 08/10/16 Levothyroxine Sodium [Levo-T] 100 mcg PO DAILY 08/10/16 Memantine HCl [Namenda Xr] 14 mg PO DAILY 08/10/16 Albuterol 2.5/Ipratropium 0.5 [Duoneb -] 1 amp NEB Q4H PRN #0 amp 08/14/16 Atorvastatin Ca [Lipitor] 20 mg PO HS tablet 08/14/16 Budesonide/Formeterol Fumarate [SYMBICORT 160/4.5mcg -] 1 puff IH BID inhaler 08/14/16 Gabapentin [Neurontin -] 300 mg PO BID capsule 08/14/16 Guaifenesin [Robitussin -] 10 ml PO Q8H PRN #0 cup 08/14/16 Pantoprazole Sodium [Protonix -] 40 mg PO DAILY #30 tablet.ec 08/23/16 Valacyclovir HCl [Valtrex -] 1,000 mg PO TID #15 tablet 08/23/16 Prednisone 10 mg PO ASDIR 08/29/16 Review of Systems - Review of Systems Constitutional: denies: Chills, Fever Cardiovascular: reports: Chest Pain, Shortness of Breath. denies: Palpitations Respiratory: reports: Cough, SOB. denies: Hemoptysis, Orthopnea, PND, Wheezing Gastrointestinal: denies: Abdominal Pain, Constipation, Diarrhea, Melena, Nausea , Rectal Bleeding, Vomiting Genitourinary: denies: Dysuria Musculoskeletal: denies: Joint Pain Neurological: denies: Dizziness, Headache, Seizure, Syncope Vital Signs: Vital Signs Temperature 98.7 F 08/29/16 16:16 Pulse Rate 79 08/29/16 16:16 Respiratory Rate 18 08/29/16 16:16 Blood Pressure 120/51 08/29/16 16:16 O2 Sat by Pulse Oximetry (%) 95 08/29/16 16:16 Neck: Yes: Supple Respiratory: Yes: Diminished Gastrointestinal: Yes: Normal Bowel Sounds, Soft. No: Tenderness Cardiovascular: Yes: Regular Rate and Rhythm JVD: No Carotid Bruit: No PMI: Non-Displaced Heart Sounds: Yes: S1, S2. No: Gallop Edema: No - Other Data Labs, Other Data: CBCD WBC 18.3 K/mm3 (4.0-10.0) H 08/29/16 10:25 RBC 5.00 M/mm3 (3.60-5.2) 08/29/16 10:25 Hgb 14.6 GM/dL (10.7-15.3) 08/29/16 10:25 Hct 43.9 % (32.4-45.2) 08/29/16 10:25 MCV 87.8 fl (80-96) 08/29/16 10:25 MCHC 33.2 g/dl (32.0-36.0) 08/29/16 10:25 RDW 13.2 % (11.6-15.6) 08/29/16 10:25 Plt Count 167 K/MM3 (134-434) D 08/29/16 10:25 MPV 9.1 fl (7.5-11.1) 08/29/16 10:25 CMP Sodium 133 mmol/L (136-145) L 08/29/16 10:25 Potassium 3.9 mmol/L (3.5-5.1) 08/29/16 10:25 Chloride 94 mmol/L (98-107) L 08/29/16 10:25 Carbon Dioxide 26 mmol/L (21-32) 08/29/16 10:25 Anion Gap 13 (8-16) 08/29/16 10:25 BUN 21 mg/dL (7-18) H 08/29/16 10:25 Creatinine 0.7 mg/dL (0.55-1.02) 08/29/16 10:25 Creat Clearance w eGFR > 60 (>60) 08/29/16 10:25 Random Glucose 230 mg/dL (74-106) H D 08/29/16 10:25 Calcium 9.0 mg/dL (8.5-10.1) 08/29/16 10:25 Total Bilirubin 1.0 mg/dL (0.2-1.0) 08/29/16 10:25 AST 15 U/L (15-37) D 08/29/16 10:25 ALT 31 U/L (12-78) D 08/29/16 10:25 Alkaline Phosphatase 82 U/L (45-117) 08/29/16 10:25 Total Protein 7.0 g/dl (6.4-8.2) 08/29/16 10:25 Albumin 3.5 g/dl (3.4-5.0) 08/29/16 10:25 CARDIAC ENZYMES Creatine Kinase 55 IU/L (26-192) 08/29/16 10:25 Troponin I 0.09 ng/ml (0.00-0.05) H 08/29/16 10:25 Sinus rhythm LAD/LAFB, no ST-T abnormality Echo: Report Reviewed Imaging - Results Chest X-ray: Image Reviewed EKG: Report Reviewed Problem List - Problems (1) Chest discomfort Code(s): R07.89 - OTHER CHEST PAIN (2) Hypertension Code(s): I10 - ESSENTIAL (PRIMARY) HYPERTENSION Qualifiers: Hypertension type: essential hypertension Qualified Code(s): I10 - Essential (primary) hypertension (3) Shortness of breath Code(s): R06.02 - SHORTNESS OF BREATH (4) Subendocardial ischemia Code(s): I24.8 - OTHER FORMS OF ACUTE ISCHEMIC HEART DISEASE (5) COPD exacerbation Code(s): J44.1 - CHRONIC OBSTRUCTIVE PULMONARY DISEASE W (ACUTE) EXACERBATION (6) Cough Code(s): R05 - COUGH (7) Diabetes Code(s): E11.9 - TYPE 2 DIABETES MELLITUS WITHOUT COMPLICATIONS Qualifiers: Diabetes mellitus type: type 2 Diabetes mellitus complication status: without complication Diabetes mellitus long-term insulin use: without long-term use Qualified Code(s): E11.9 - Type 2 diabetes mellitus without complications (8) Diabetic neuropathy Code(s): E11.40 - TYPE 2 DIABETES MELLITUS WITH DIABETIC NEUROPATHY, UNSP Qualifiers: Diabetes mellitus type: type 2 (9) Hypercholesterolemia Code(s): E78.0 - PURE HYPERCHOLESTEROLEMIA * DO NOT USE * (10) Interstitial lung disease Code(s): J84.9 - INTERSTITIAL PULMONARY DISEASE, UNSPECIFIED Assessment/Plan 1. Shortness of breath. productive cough and chest burning suggests COPD exacerbaton +/- ILD 2. Demand ischemia - no clinical evidence of ACS 3. HTN 4. Type 2 diabetes mellitus 5. Hypercholesterolemia 6. Hypothyroidism 7. Diabetic neuropathy PLAN: 1. Serial cardiac enzymes - trend 2. Resume Carvedilol 6.25 mg BID and Ramipril 2.5 mg QD as tolerated - Titrate dose 3. Continue Atorvastatin 20 mg QHS 4. ASA 81 mg QD 5. Pulmonary work up and treatment for ILD 6. Steroid taper, O2, nebulizer and bronchodilators 7. Thyroid replacement therapy 8. Nuclear myocardial perfusion imaging at some point in the future, but can be done as outpatient Further plans are to follow Jackson Purvis MD
[2016-08-29] MEDS ORDERED: ACETAMINOPHEN 325 MG TABLET (FP) PO PRN (17:17)
[2016-08-29 17:44] VITALS: BMI 32.3
--- NOTE | 2016-08-29 17:44 | EKG ---
Test Reason : Blood Pressure : / mmHG Vent. Rate : 094 BPM Atrial Rate : 094 BPM P-R Int : 130 ms QRS Dur : 104 ms QT Int : 352 ms P-R-T Axes : 039 -61 090 degrees QTc Int : 440 ms NORMAL SINUS RHYTHM POSSIBLE LEFT ATRIAL ENLARGEMENT LEFT ANTERIOR FASCICULAR BLOCK POSSIBLE LATERAL INFARCT , AGE UNDETERMINED ABNORMAL ECG WHEN COMPARED WITH ECG OF 15-AUG-2016 04:19, VENT. RATE HAS INCREASED BY 32 BPM T WAVE VARIATION Confirmed by ROMAN CALLE MD ([id number]) on 08/29/2016 5:44:22 PM Referred By: Confirmed By:ROMAN CALLE MD
[2016-08-29] MEDS ORDERED: predniSONE 20 MG TABLET (UD) ONE (18:02)
[2016-08-29] MEDS ORDERED: INSULIN (NOVOLOG) ASPART 100 UNITS/ML 10ML VIAL ONE (18:02)
[2016-08-29] MEDS: INSULIN SLIDING SCALE (NOVOLOG) 1 VIAL SQ SCH (18:07)
[2016-08-29] MEDS: predniSONE 20 MG TABLET (UD) PO SCH (18:07)
[2016-08-29] MEDS ORDERED: METFORMIN HCL PO SCH (22:00)
[2016-08-29] MEDS ORDERED: GLIPIZIDE PO SCH (22:00)
[2016-08-29] MEDS ORDERED: [UNRECOGNIZED DRUG - OTHER] PO SCH (22:00)
[2016-08-29] MEDS ORDERED: BUDESONIDE/FORMETEROL FUMARATE 160/4.5 mcg INHALER IH SCH (22:00)
[2016-08-29] MEDS: ALBUTEROL SO4 2.5/IPRATROPIUM 0.5 INH SOL 3 ML VIAL.NEB. NEB PRN (22:03)
[2016-08-29] MEDS: ATORVASTATIN CA 20 MG TABLET (FP) PO SCH (22:23)
[2016-08-29] MEDS: GABAPENTIN 100 MG CAPSULE (FP) PO SCH (22:23)
[2016-08-29] MEDS: BUDESONIDE/FORMETEROL FUMARATE 160/4.5 mcg INHALER IH SCH ×2 (22:24→22:40)
[2016-08-30] MEDS: metFORMIN HCL 500 MG TABLET (FP) PO SCH ×2 (06:19→16:43)
[2016-08-30] MEDS: LEVOTHYROXINE NA 100 MCG TABLET (FP) PO SCH (06:19)
[2016-08-30] MEDS: glipiZIDE 5 MG TABLET (FP) PO SCH ×2 (06:19→16:45)
[2016-08-30] MEDS: INSULIN SLIDING SCALE (NOVOLOG) 1 VIAL SQ SCH ×3 (06:20→16:45)
[2016-08-30 07:51] LABS: BASOPHIL 0.2 % (0-2.0); EOSINOPHIL 0.4 % (0-4.5); MCH 29.5 pg (25.7-33.7); MCHC 33.5 g/dl (32.0-36.0); MEAN CELL VOLUME 88.3 fl (80-96); MEAN PLT VOLUME 9.6 fl (7.5-11.1); NEUTROPHILS 89.3 % (42.8-82.8); PLATELET COUNT 162 K/MM3 (134-434); RDW 13.1 % (11.6-15.6); WHITE BLOOD COUNT 10.8 K/mm3 (4.0-10.0)
[2016-08-30 08:39] LABS: CALCIUM 8.3 mg/dL (8.5-10.1); CREATININE 0.7 mg/dL (0.55-1.02)
[2016-08-30 08:46] LABS: TROPONIN I 0.06 ng/ml (0.00-0.05)
[2016-08-30] MEDS: ENOXAPARIN NA (PORCINE) 40 MG/0.4 ML DISP.SYRIN SQ SCH (09:15)
[2016-08-30] MEDS: GABAPENTIN 100 MG CAPSULE (FP) PO SCH ×2 (09:15→21:54)
[2016-08-30] MEDS: NEBIVOLOL 5 MG TABLET (FP) PO SCH (09:16)
[2016-08-30] MEDS: BUDESONIDE/FORMETEROL FUMARATE 160/4.5 mcg INHALER IH SCH ×2 (09:16→21:53)
[2016-08-30] MEDS: PANTOPRAZOLE 40 MG TABLET (FP) PO SCH (09:16)
[2016-08-30] MEDS: AMITRIPTYLINE HCL 25 MG TABLET (FP) PO SCH (09:16)
[2016-08-30] MEDS: predniSONE 20 MG TABLET (UD) PO SCH ×2 (09:16→14:14)
[2016-08-30] MEDS: RAMIPRIL 2.5 MG CAPSULE (FP) PO SCH (09:16)
--- NOTE | 2016-08-30 09:53 | PN ---
Progress Note, Physician Chief Complaint: feeling better No distress No chest pain or SOB - Current Medication List Current Medications: Active Medications Acetaminophen (Tylenol -) 650 mg PO Q6H PRN PRN Reason: FEVER OR PAIN Albuterol Sulfate (Ventolin 0.083% Nebulizer Soln -) 1 amp NEB Q4H PRN PRN Reason: SHORT OF BREATH/WHEEZING Albuterol/Ipratropium (Duoneb -) 1 amp NEB Q4H PRN PRN Reason: SHORTNESS OF BREATH Last Admin: 08/29/16 22:03 Dose: 1 amp Amitriptyline HCl (Elavil -) 25 mg PO DAILY [facility] Last Admin: 08/30/16 09:16 Dose: 25 mg Atorvastatin Calcium (Lipitor -) 20 mg PO HS [facility] Last Admin: 08/29/16 22:23 Dose: 20 mg Budesonide/Formoterol Fumarate (Symbicort 160/4.5mcg -) 2 puff IH BID [facility] Last Admin: 08/30/16 09:16 Dose: 2 puff Enoxaparin Sodium (Lovenox -) 40 mg SQ DAILY [facility] Last Admin: 08/30/16 09:15 Dose: 40 mg Gabapentin (Neurontin -) 100 mg PO BID [facility] Last Admin: 08/30/16 09:15 Dose: 100 mg Glipizide (Glucotrol -) 2.5 mg PO BIDAC [facility] Last Admin: 08/30/16 06:19 Dose: 2.5 mg Insulin Aspart (Novolog Vial Sliding Scale -) 1 vial SQ TIDAC [facility] PRN Reason: Protocol Last Admin: 08/30/16 06:20 Dose: 6 units Levothyroxine Sodium (Synthroid -) 100 mcg PO DAILY@0700 [facility] Last Admin: 08/30/16 06:19 Dose: 100 mcg Metformin HCl (Glucophage -) 250 mg PO BIDAC [facility] Last Admin: 08/30/16 06:19 Dose: 250 mg Nebivolol (Bystolic -) 5 mg PO DAILY [facility] Last Admin: 08/30/16 09:16 Dose: 5 mg Pantoprazole Sodium (Protonix -) 40 mg PO DAILY [facility] Last Admin: 08/30/16 09:16 Dose: 40 mg Prednisone (Deltasone -) 40 mg PO DAILY [facility] Last Admin: 08/30/16 09:16 Dose: 40 mg Ramipril (Altace -) 2.5 mg PO DAILY [facility] Last Admin: 08/30/16 09:16 Dose: 2.5 mg - Objective Vital Signs: Vital Signs Temperature 97.9 F 08/30/16 06:00 Pulse Rate 71 08/30/16 06:00 Respiratory Rate 18 08/30/16 06:00 Blood Pressure 109/55 08/30/16 06:00 O2 Sat by Pulse Oximetry (%) 95 08/29/16 23:31 Constitutional: Yes: No Distress, Calm Cardiovascular: Yes: Regular Rate and Rhythm Respiratory: Yes: Diminished Gastrointestinal: Yes: Normal Bowel Sounds, Soft. No: Distention, Tenderness Edema: No Labs: CBC, BMP 08/30/16 05:45 08/30/16 08:20 Problem List - Problems (1) Acute electrocardiogram changes Code(s): R94.31 - ABNORMAL ELECTROCARDIOGRAM [ECG] [EKG] (2) Chest discomfort Code(s): R07.89 - OTHER CHEST PAIN (3) Hypertension Code(s): I10 - ESSENTIAL (PRIMARY) HYPERTENSION Qualifiers: Hypertension type: essential hypertension Qualified Code(s): I10 - Essential (primary) hypertension (4) Shortness of breath Code(s): R06.02 - SHORTNESS OF BREATH (5) Diabetes Code(s): E11.9 - TYPE 2 DIABETES MELLITUS WITHOUT COMPLICATIONS Qualifiers: Diabetes mellitus type: type 2 Diabetes mellitus complication status: without complication Diabetes mellitus 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
--- NOTE | 2016-08-30 11:29 | PN ---
Progress Note (short form) - Note Progress Note: S: 70 year old female, history of COPD, recent exacerbation, non insulin dependent diabetes mellitus, diabetic neuropathy, hypothyroidism, hypertension and hypercholesterolemia. Patient states that her breathing has improved, there is ongoing cough with whitish, yellowish expectoration. On questioning patient states that she has not experienced chest pain at the present time but did experience discomfort that occurred both with exertion and at times at rest. No PND or orthopnea. No palpitations were reported. She has been on home oxygen. Patient admits to poor dietary compliance. Active Medications Generic Name Dose Route Start Last Admin Trade Name Freq PRN Reason Stop Dose Admin Acetaminophen 650 mg 08/29/16 17:17 Tylenol - PO Q6H PRN FEVER OR PAIN Albuterol Sulfate 1 amp 08/29/16 16:05 08/30/16 10:31 Ventolin 0.083% Nebulizer Soln - NEB 1 amp Q4H PRN Administration SHORT OF BREATH/WHEEZING Albuterol/Ipratropium 1 amp 08/29/16 17:17 08/29/16 22:03 Duoneb - NEB 1 amp Q4H PRN Administration SHORTNESS OF BREATH Amitriptyline HCl 25 mg 08/30/16 10:00 08/30/16 09:16 Elavil - PO 25 mg DAILY [facility] Administration Atorvastatin Calcium 20 mg 08/29/16 22:00 08/29/16 22:23 Lipitor - PO 20 mg HS [facility] Administration Budesonide/Formoterol Fumarate 2 puff 08/29/16 22:00 08/30/16 09:16 Symbicort 160/4.5mcg - IH 2 puff BID [facility] Administration Enoxaparin Sodium 40 mg 08/30/16 10:00 08/30/16 09:15 Lovenox - SQ 40 mg DAILY [facility] Administration Gabapentin 100 mg 08/29/16 22:00 08/30/16 09:15 Neurontin - PO 100 mg BID [facility] Administration Glipizide 2.5 mg 08/30/16 07:00 08/30/16 06:19 Glucotrol - PO 2.5 mg BIDAC [facility] Administration Insulin Aspart 1 vial 08/29/16 18:00 08/30/16 06:20 Novolog Vial Sliding Scale - SQ 6 units TIDAC [facility] Administration Protocol Levothyroxine Sodium 100 mcg 08/30/16 07:00 08/30/16 06:19 Synthroid - PO 100 mcg DAILY@0700 [facility] Administration Metformin HCl 250 mg 08/30/16 07:00 08/30/16 06:19 Glucophage - PO 250 mg BIDAC [facility] Administration Nebivolol 5 mg 08/30/16 10:00 08/30/16 09:16 Bystolic - PO 5 mg DAILY [facility] Administration Pantoprazole Sodium 40 mg 08/30/16 10:00 08/30/16 09:16 Protonix - PO 40 mg DAILY [facility] Administration Prednisone 30 mg 08/30/16 10:28 Deltasone - PO DAILY [facility] Ramipril 2.5 mg 08/30/16 10:00 08/30/16 09:16 Altace - PO 2.5 mg DAILY [facility] Administration O: 70 year old female was in no acute distress, no pallor, cyanosis, clubbing, or jaundice. Last Vital Signs Temp Pulse Resp BP Pulse Ox 97.9 F 78 20 146/97 94 L 08/30/16 06:00 08/30/16 10:00 08/30/16 10:00 08/30/16 10:00 08/30/16 10:00 Neck: Supple, no JVD, negative HJR, carotids were equal and upstrokes were normal, no thyromegaly appreciated. Heart: PMI was in the 5th intercostal space, no heaves or thrills, heart sounds were distant, no murmur or gallops were appreciated. Lungs: Decrease breath sounds at both bases. Scattered expiratory wheezing. Abdomen: Soft, obese, and nontender, no hepatosplenomegaly appreciated, and no palpable masses were felt. Extremities: No calf tenderness or dependent edema. Pulses are normal. CBC, BMP 08/30/16 05:45 08/30/16 08:20 Laboratory Results - last 24 hr 08/30/16 08/30/16 08/30/16 05:45 05:51 08:20 WBC 10.8 H D RBC 4.59 Hgb 13.6 Hct 40.6 MCV 88.3 MCHC 33.5 RDW 13.1 Plt Count 162 MPV 9.6 Neutrophils % 89.3 H Lymphocytes % 6.6 L Monocytes % 3.5 L Eosinophils % 0.4 Basophils % 0.2 Sodium 137 Potassium 4.2 Chloride 98 Carbon Dioxide 27 Anion Gap 12 BUN 17 Creatinine 0.7 POC Glucometer 280 Random Glucose 310 H* D Calcium 8.3 L Creatine Kinase 36 Troponin I 0.06 H Impression: (1) Chest pain syndrome, with elevated troponin levels, consistent with coronary artery disease / angina pectoris. Code(s): R07.89 - OTHER CHEST PAIN (2) Hypertension Code(s): I10 - ESSENTIAL (PRIMARY) HYPERTENSION Qualifiers: Hypertension type: essential hypertension Qualified Code(s): I10 - Essential (primary) hypertension (3) Shortness of breath, etiology; a. secondary to exacerbation of COPD b. angina equivalent needs exclusion Code(s): R06.02 - SHORTNESS OF BREATH (5) COPD exacerbation Code(s): J44.1 - CHRONIC OBSTRUCTIVE PULMONARY DISEASE W (ACUTE) EXACERBATION (7) Diabetes Mellitus, poorly controlled Code(s): E11.9 - TYPE 2 DIABETES MELLITUS WITHOUT COMPLICATIONS Qualifiers: Diabetes mellitus type: type 2 Diabetes mellitus complication status: without complication Diabetes mellitus mcfp insulin use: without joint terminal attack controller use Qualified Code(s): E11.9 - Type 2 diabetes mellitus without complications (8) Diabetic neuropathy Code(s): E11.40 - TYPE 2 DIABETES MELLITUS WITH DIABETIC NEUROPATHY, UNSP Qualifiers: Diabetes mellitus type: type 2 (9) Hypercholesterolemia Code(s): E78.0 - PURE HYPERCHOLESTEROLEMIA * DO NOT USE * (10) Exogenous Obesity Code(s): E66.9 - OBESITY, UNSPECIFIED (11) Poor compliance Code(s): Z91.19 - PATIENT'S NONCOMPLIANCE W OTH MEDICAL TREATMENT AND REGIMEN Recommendations: 1. When patient is stabilized, consider dobutamine myoview stress test. 2. Consider adding oral nitrates. 3. Risk modifications. 4. Dietary consultation. Prognosis: Guarded Attestation: Documentation prepared by Thierry Ivan, acting as medical anthropologist for Christian Haley MD.
--- NOTE | 2016-08-30 12:08 | PN ---
Progress Note, Physician History of Present Illness: PULMONARY ALERT,FEELING BETTER,LESS DYSPNEIC,-CP,LESS COUGH - Current Medication List Current Medications: Active Medications Acetaminophen (Tylenol -) 650 mg PO Q6H PRN PRN Reason: FEVER OR PAIN Albuterol Sulfate (Ventolin 0.083% Nebulizer Soln -) 1 amp NEB Q4H PRN PRN Reason: SHORT OF BREATH/WHEEZING Last Admin: 08/30/16 10:31 Dose: 1 amp Albuterol/Ipratropium (Duoneb -) 1 amp NEB Q4H PRN PRN Reason: SHORTNESS OF BREATH Last Admin: 08/29/16 22:03 Dose: 1 amp Amitriptyline HCl (Elavil -) 25 mg PO DAILY [facility] Last Admin: 08/30/16 09:16 Dose: 25 mg Atorvastatin Calcium (Lipitor -) 20 mg PO HS [facility] Last Admin: 08/29/16 22:23 Dose: 20 mg Budesonide/Formoterol Fumarate (Symbicort 160/4.5mcg -) 2 puff IH BID [facility] Last Admin: 08/30/16 09:16 Dose: 2 puff Enoxaparin Sodium (Lovenox -) 40 mg SQ DAILY [facility] Last Admin: 08/30/16 09:15 Dose: 40 mg Gabapentin (Neurontin -) 100 mg PO BID [facility] Last Admin: 08/30/16 09:15 Dose: 100 mg Glipizide (Glucotrol -) 2.5 mg PO BIDAC [facility] Last Admin: 08/30/16 06:19 Dose: 2.5 mg Insulin Aspart (Novolog Vial Sliding Scale -) 1 vial SQ TIDAC [facility] PRN Reason: Protocol Last Admin: 08/30/16 12:00 Dose: 6 units Levothyroxine Sodium (Synthroid -) 100 mcg PO DAILY@0700 [facility] Last Admin: 08/30/16 06:19 Dose: 100 mcg Metformin HCl (Glucophage -) 250 mg PO BIDAC [facility] Last Admin: 08/30/16 06:19 Dose: 250 mg Nebivolol (Bystolic -) 5 mg PO DAILY [facility] Last Admin: 08/30/16 09:16 Dose: 5 mg Pantoprazole Sodium (Protonix -) 40 mg PO DAILY [facility] Last Admin: 08/30/16 09:16 Dose: 40 mg Prednisone (Deltasone -) 30 mg PO DAILY [facility] Ramipril (Altace -) 2.5 mg PO DAILY [facility] Last Admin: 08/30/16 09:16 Dose: 2.5 mg - Objective Vital Signs: Vital Signs Temperature 97.9 F 08/30/16 06:00 Pulse Rate 78 08/30/16 10:00 Respiratory Rate 20 08/30/16 10:00 Blood Pressure 146/97 08/30/16 10:00 O2 Sat by Pulse Oximetry (%) 94 L 08/30/16 10:00 Constitutional: Yes: Well Nourished, Calm Eyes: Yes: WNL HENT: Yes: WNL Neck: Yes: WNL Cardiovascular: Yes: Regular Rate and Rhythm, S1, S2 Respiratory: Yes: Rales (MURTAZA CRACKLES) Gastrointestinal: Yes: Normal Bowel Sounds, Soft Extremities: Yes: WNL Edema: No Labs: CBC, BMP 08/30/16 05:45 08/30/16 08:20 Problem List - Problems (1) Interstitial lung disease Code(s): J84.9 - INTERSTITIAL PULMONARY DISEASE, UNSPECIFIED Assessment/Plan Problem List - Problems (1) Acute electrocardiogram changes Code(s): R94.31 - ABNORMAL ELECTROCARDIOGRAM [ECG] [EKG] (2) Chest discomfort Code(s): R07.89 - OTHER CHEST PAIN (3) Hypertension Code(s): I10 - ESSENTIAL (PRIMARY) HYPERTENSION Qualifiers: Hypertension type: essential hypertension Qualified Code(s): I10 - Essential (primary) hypertension (4) Influenza A Code(s): J10.1 - FLU DUE TO OTH IDENT INFLUENZA VIRUS W OTH RESP MANIFEST (5) Shortness of breath Code(s): R06.02 - SHORTNESS OF BREATH (6) Cough Code(s): R05 - COUGH (7) Diabetes Code(s): E11.9 - TYPE 2 DIABETES MELLITUS WITHOUT COMPLICATIONS Qualifiers: Diabetes mellitus type: type 2 Diabetes mellitus complication status: without complication Diabetes mellitus terminal press operator insulin use: without terminal press operator use Qualified Code(s): E11.9 - Type 2 diabetes mellitus without complications (8) Diabetic neuropathy Code(s): E11.40 - TYPE 2 DIABETES MELLITUS WITH DIABETIC NEUROPATHY, UNSP Qualifiers: Diabetes mellitus type: type 2 (9) Hypercholesterolemia Code(s): E78.0 - PURE HYPERCHOLESTEROLEMIA * DO NOT USE * (10) Hyperlipidemia associated with type 2 diabetes mellitus Code(s): E11.69 - TYPE 2 DIABETES MELLITUS WITH OTHER SPECIFIED COMPLICATION E78.5 - HYPERLIPIDEMIA, UNSPECIFIED (11) Hypothyroidism Code(s): E03.9 - HYPOTHYROIDISM, UNSPECIFIED Qualifiers: Hypothyroidism type: unspecified Qualified Code(s): E03.9 - Hypothyroidism, unspecified (12) Interstitial lung disease Assessment/Plan: Question of Hypersensitivity Pneumonitis on radiology report. Changes have been present on imaging since at least 2013. Definitive diagnosis can usually only be made by tissue diagnosis. Although difficult to categorize, her CT lacks honeycombing, fibrotic changes, bronchiectasis, etc. After she is medically stable, further workup is warranted. Code(s): J84.9 - INTERSTITIAL PULMONARY DISEASE, UNSPECIFIED (13) Radiculopathy Code(s): M54.10 - RADICULOPATHY, SITE UNSPECIFIED Assessment/Plan PLAN: Symbicort BID O2 as needed No smoking discussed further ILD workup on discharge PrednIsone 30 mg OD PFTS outpatient DR VYAS
[2016-08-30] MEDS: ATORVASTATIN CA 20 MG TABLET (FP) PO SCH (21:54)
[2016-08-31] MEDS: INSULIN SLIDING SCALE (NOVOLOG) 1 VIAL SQ SCH ×3 (06:16→17:23)
[2016-08-31] MEDS: glipiZIDE 5 MG TABLET (FP) PO SCH ×2 (06:16→17:23)
[2016-08-31] MEDS: LEVOTHYROXINE NA 100 MCG TABLET (FP) PO SCH (06:16)
[2016-08-31] MEDS: metFORMIN HCL 500 MG TABLET (FP) PO SCH ×2 (06:17→17:23)
[2016-08-31] MEDS: PANTOPRAZOLE 40 MG TABLET (FP) PO SCH (09:54)
[2016-08-31] MEDS: AMITRIPTYLINE HCL 25 MG TABLET (FP) PO SCH (09:54)
[2016-08-31] MEDS: NEBIVOLOL 5 MG TABLET (FP) PO SCH (09:54)
[2016-08-31] MEDS: GABAPENTIN 100 MG CAPSULE (FP) PO SCH ×2 (09:54→22:33)
[2016-08-31] MEDS: RAMIPRIL 2.5 MG CAPSULE (FP) PO SCH (09:54)
[2016-08-31] MEDS: predniSONE 20 MG TABLET (UD) PO SCH (09:55)
[2016-08-31] MEDS: ENOXAPARIN NA (PORCINE) 40 MG/0.4 ML DISP.SYRIN SQ SCH (09:55)
[2016-08-31] MEDS: BUDESONIDE/FORMETEROL FUMARATE 160/4.5 mcg INHALER IH SCH ×2 (09:55→22:33)
--- NOTE | 2016-08-31 11:31 | PN ---
Progress Note, Physician History of Present Illness: PULMONARY ALERT,OOB-CHAIR,LESS DYSPNEIC - Current Medication List Current Medications: Active Medications Acetaminophen (Tylenol -) 650 mg PO Q6H PRN PRN Reason: FEVER OR PAIN Albuterol Sulfate (Ventolin 0.083% Nebulizer Soln -) 1 amp NEB Q4H PRN PRN Reason: SHORT OF BREATH/WHEEZING Last Admin: 08/30/16 10:31 Dose: 1 amp Albuterol/Ipratropium (Duoneb -) 1 amp NEB Q4H PRN PRN Reason: SHORTNESS OF BREATH Last Admin: 08/29/16 22:03 Dose: 1 amp Amitriptyline HCl (Elavil -) 25 mg PO DAILY [facility] Last Admin: 08/31/16 09:54 Dose: 25 mg Atorvastatin Calcium (Lipitor -) 20 mg PO HS [facility] Last Admin: 08/30/16 21:54 Dose: 20 mg Budesonide/Formoterol Fumarate (Symbicort 160/4.5mcg -) 2 puff IH BID [facility] Last Admin: 08/31/16 09:55 Dose: 2 puff Enoxaparin Sodium (Lovenox -) 40 mg SQ DAILY [facility] Last Admin: 08/31/16 09:55 Dose: 40 mg Gabapentin (Neurontin -) 100 mg PO BID [facility] Last Admin: 08/31/16 09:54 Dose: 100 mg Glipizide (Glucotrol -) 2.5 mg PO BIDAC [facility] Last Admin: 08/31/16 06:16 Dose: 2.5 mg Insulin Aspart (Novolog Vial Sliding Scale -) 1 vial SQ TIDAC [facility] PRN Reason: Protocol Last Admin: 08/31/16 06:16 Dose: 8 units Levothyroxine Sodium (Synthroid -) 100 mcg PO DAILY@0700 [facility] Last Admin: 08/31/16 06:16 Dose: 100 mcg Metformin HCl (Glucophage -) 250 mg PO BIDAC [facility] Last Admin: 08/31/16 06:17 Dose: 250 mg Nebivolol (Bystolic -) 5 mg PO DAILY [facility] Last Admin: 08/31/16 09:54 Dose: 5 mg Pantoprazole Sodium (Protonix -) 40 mg PO DAILY [facility] Last Admin: 08/31/16 09:54 Dose: 40 mg Prednisone (Deltasone -) 30 mg PO DAILY [facility] Last Admin: 02/09/17 09:55 Dose: 30 mg Ramipril (Altace -) 2.5 mg PO DAILY [facility] Last Admin: 08/31/16 09:54 Dose: 2.5 mg - Objective Vital Signs: Vital Signs Temperature 99.7 F H 08/31/16 02:33 Pulse Rate 55 L 08/31/16 02:33 Respiratory Rate 20 08/31/16 02:33 Blood Pressure 104/55 08/31/16 02:33 O2 Sat by Pulse Oximetry (%) 95 08/31/16 02:00 Constitutional: Yes: Well Nourished, Calm Eyes: Yes: WNL HENT: Yes: WNL Neck: Yes: WNL Cardiovascular: Yes: Regular Rate and Rhythm, S1, S2 Respiratory: Yes: Rales (MURTAZA CRACKLES) Gastrointestinal: Yes: Normal Bowel Sounds, Soft Extremities: Yes: WNL Edema: No Labs: CBC, BMP Problem List - Problems (1) Interstitial lung disease Code(s): J84.9 - INTERSTITIAL PULMONARY DISEASE, UNSPECIFIED Assessment/Plan Problem List - Problems (1) Acute electrocardiogram changes Code(s): R94.31 - ABNORMAL ELECTROCARDIOGRAM [ECG] [EKG] (2) Chest discomfort Code(s): R07.89 - OTHER CHEST PAIN (3) Hypertension Code(s): I10 - ESSENTIAL (PRIMARY) HYPERTENSION Qualifiers: Hypertension type: essential hypertension Qualified Code(s): I10 - Essential (primary) hypertension (4) Influenza A Code(s): J10.1 - FLU DUE TO OTH IDENT INFLUENZA VIRUS W OTH RESP MANIFEST (5) Shortness of breath Code(s): R06.02 - SHORTNESS OF BREATH (6) Cough Code(s): R05 - COUGH (7) Diabetes Code(s): E11.9 - TYPE 2 DIABETES MELLITUS WITHOUT COMPLICATIONS Qualifiers: Diabetes mellitus type: type 2 Diabetes mellitus complication status: without complication Diabetes mellitus correction insulin use: without correction use Qualified Code(s): E11.9 - Type 2 diabetes mellitus without complications (8) Diabetic neuropathy Code(s): E11.40 - TYPE 2 DIABETES MELLITUS WITH DIABETIC NEUROPATHY, UNSP Qualifiers: Diabetes mellitus type: type 2 (9) Hypercholesterolemia Code(s): E78.0 - PURE HYPERCHOLESTEROLEMIA * DO NOT USE * (10) Hyperlipidemia associated with type 2 diabetes mellitus Code(s): E11.69 - TYPE 2 DIABETES MELLITUS WITH OTHER SPECIFIED COMPLICATION E78.5 - HYPERLIPIDEMIA, UNSPECIFIED (11) Hypothyroidism Code(s): E03.9 - HYPOTHYROIDISM, UNSPECIFIED Qualifiers: Hypothyroidism type: unspecified Qualified Code(s): E03.9 - Hypothyroidism, unspecified (12) Interstitial lung disease Assessment/Plan: Question of Hypersensitivity Pneumonitis on radiology report. Changes have been present on imaging since at least 2013. Definitive diagnosis can usually only be made by tissue diagnosis. Although difficult to categorize, her CT lacks honeycombing, fibrotic changes, bronchiectasis, etc. After she is medically stable, further workup is warranted. Code(s): J84.9 - INTERSTITIAL PULMONARY DISEASE, UNSPECIFIED (13) Radiculopathy Code(s): M54.10 - RADICULOPATHY, SITE UNSPECIFIED Assessment/Plan PLAN: Symbicort BID O2 as needed No smoking discussed further ILD workup on discharge Prednisone 30 mg OD PFTS outpatient DR VYAS
[2016-08-31] MEDS ORDERED: INSULIN (NOVOLOG) ASPART 100 UNITS/ML 10ML VIAL ONE (12:04)
[2016-08-31] MEDS: ALBUTEROL SO4 2.5/IPRATROPIUM 0.5 INH SOL 3 ML VIAL.NEB. NEB PRN (19:12)
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
[2016-08-31] MEDS ORDERED: PT OWN MED DRAWER 7, Y5N ONE (22:15)
[2016-08-31] MEDS: ATORVASTATIN CA 20 MG TABLET (FP) PO SCH (22:33)
[2016-09-01] MEDS: ALBUTEROL SO4 2.5/IPRATROPIUM 0.5 INH SOL 3 ML VIAL.NEB. NEB PRN (02:56)
[2016-09-01] MEDS ORDERED: NITROGLYCERIN SUBLINGUAL 1/200 0.3 MG BTL SL ONE (03:50)
[2016-09-01] MEDS ORDERED: NITROGLYCERIN SUBLINGUAL 1/150 0.4 MG TAB ONE (03:53)
[2016-09-01 04:00] LABS: TROPONIN I 0.03 ng/ml (0.00-0.05)
--- NOTE | 2016-09-01 04:04 | HOSP ---
Physical Examination Vital Signs: Vital Signs Temperature 98.2 F 09/01/16 01:57 Pulse Rate 61 09/01/16 01:57 Respiratory Rate 18 09/01/16 01:57 Blood Pressure 129/77 09/01/16 01:57 O2 Sat by Pulse Oximetry (%) 96 08/31/16 20:50 Labs: CBC, BMP 08/30/16 05:45 08/30/16 08:20 Hospitalist Encounter Assessment: Was paged by the nurse to inform that patient is complaining of left sided chest pain. Patient seen and examined at bed side. Stat EKG done, Cardiac enzymes ordered. On further questioning, patient said she went to the bathroom and on her way back, she felt dizzy, started having chest pain, located on the left side, non radiating, burning in nature, pressure type, 9/10 in intensity. not associated with nausea or vomiting. Patient also complaints of lower leg pain started since few hours. Complaints of headache, no blurring of vision, no loc. Patient is shivering now, complaining of chest pain, looks anxious, no sweating , denies sob, palpitation, abdominal pain. Vitals: BP- 120/50 mmHg, P-72bpm, T-99F, Spo2-96% @ 2L of nasal oxygen. General exam: Patient lying in bed, shivering, no sweats, oriented x 3, in acute distress. HEENT: No pallor or icterus. Chest:-B/L equal entry, no wheeze CVS:- Regular rate, rhythm, S1, S2 no murmur Abd: Soft non tender, no organomegaly Lower extremities: B/L equal sensation, bulk, tone, power normal. A/P Chest pain-R/O ACS -Repeat troponin <0.03 -Sublingual nitro given, chest pain relieved -Stat aspirin 81mg - EKG reviewed-no new changes found. # Headache -Tylenol given stat # Lower leg pain Will give morning dose of gabapentin now. Plan of care explained to the patient. She verbalized understanding. Case discussed with Dr. Aguilar. Visit type - Emergency Visit Emergency Visit: Yes ED Registration Date: 08/29/16 Care time: The patient presented to the Emergency Department on the above date and was hospitalized for further evaluation of their emergent condition. - New Patient This patient is new to me today: Yes Date on this admission: 09/01/16 - Critical Care Critical Care patient: No
[2016-09-01] MEDS ORDERED: ASPIRIN 81 MG CHEWABLE TABLETS PO ONE (04:27)
[2016-09-01] MEDS: INSULIN SLIDING SCALE (NOVOLOG) 1 VIAL SQ SCH ×3 (06:27→17:43)
[2016-09-01] MEDS ORDERED: ASPIRIN COATED 81 MG TABLET.EC ONE (06:31)
[2016-09-01] MEDS: LEVOTHYROXINE NA 100 MCG TABLET (FP) PO SCH (06:33)
[2016-09-01] MEDS: glipiZIDE 5 MG TABLET (FP) PO SCH ×2 (06:33→17:42)
[2016-09-01] MEDS: metFORMIN HCL 500 MG TABLET (FP) PO SCH ×2 (06:33→17:43)
[2016-09-01] MEDS ORDERED: LEVOFLOXACIN 500 MG IVPB 100 ML IVPB ONE (08:00)
[2016-09-01] MEDS: AMITRIPTYLINE HCL 25 MG TABLET (FP) PO SCH (09:20)
[2016-09-01] MEDS: PANTOPRAZOLE 40 MG TABLET (FP) PO SCH (09:20)
[2016-09-01] MEDS: predniSONE 20 MG TABLET (UD) PO SCH (09:21)
[2016-09-01] MEDS: GABAPENTIN 100 MG CAPSULE (FP) PO SCH ×2 (09:21→23:28)
[2016-09-01] MEDS: RAMIPRIL 2.5 MG CAPSULE (FP) PO SCH (09:21)
[2016-09-01] MEDS: ENOXAPARIN NA (PORCINE) 40 MG/0.4 ML DISP.SYRIN SQ SCH (09:21)
[2016-09-01] MEDS: NEBIVOLOL 5 MG TABLET (FP) PO SCH (09:21)
[2016-09-01] MEDS: BUDESONIDE/FORMETEROL FUMARATE 160/4.5 mcg INHALER IH SCH ×2 (09:22→23:27)
--- NOTE | 2016-09-01 10:21 | PN ---
Progress Note (short form) - Note Progress Note: S: 70 year old female, history of hypertension, COPD, recent exacerbation, hypothyroidism, non insulin dependent diabetes mellitus, diabetic neuropathy, and hypercholesterolemia. Patient still complaining of mild shortness of breath, has intermittent cough. No further episodes of chest discomfort reported. Has low grade fever. Active Medications Generic Name Dose Route Start Last Admin Trade Name Freq PRN Reason Stop Dose Admin Acetaminophen 650 mg 08/29/16 17:17 09/01/16 04:00 Tylenol - PO 650 mg Q6H PRN Administration FEVER OR PAIN Albuterol Sulfate 1 amp 08/29/16 16:05 08/30/16 10:31 Ventolin 0.083% Nebulizer Soln - NEB 1 amp Q4H PRN Administration SHORT OF BREATH/WHEEZING Albuterol/Ipratropium 1 amp 08/29/16 17:17 09/01/16 02:56 Duoneb - NEB 1 amp Q4H PRN Administration SHORTNESS OF BREATH Amitriptyline HCl 25 mg 08/30/16 10:00 09/01/16 09:20 Elavil - PO 25 mg DAILY ANU Administration Atorvastatin Calcium 20 mg 08/29/16 22:00 08/31/16 22:33 Lipitor - PO 20 mg HS ANU Administration Budesonide/Formoterol Fumarate 2 puff 08/29/16 22:00 09/01/16 09:22 Symbicort 160/4.5mcg - IH 2 puff BID ANU Administration Enoxaparin Sodium 40 mg 08/30/16 10:00 09/01/16 09:21 Lovenox - SQ 40 mg DAILY ANU Administration Gabapentin 100 mg 08/29/16 22:00 09/01/16 09:21 Neurontin - PO 100 mg BID ANU Administration Glipizide 2.5 mg 08/30/16 07:00 09/01/16 06:33 Glucotrol - PO 2.5 mg BIDAC ANU Administration Insulin Aspart 1 vial 08/29/16 18:00 09/01/16 06:27 Novolog Vial Sliding Scale - SQ 2 units TIDAC ANU Administration Protocol Levothyroxine Sodium 100 mcg 08/30/16 07:00 09/01/16 06:33 Synthroid - PO 100 mcg DAILY@0700 ANU Administration Metformin HCl 500 mg 08/31/16 20:03 09/01/16 06:33 Glucophage - PO 500 mg BIDAC ANU Administration Nebivolol 5 mg 08/30/16 10:00 09/01/16 09:21 Bystolic - PO 5 mg DAILY ANU Administration Pantoprazole Sodium 40 mg 08/30/16 10:00 09/01/16 09:20 Protonix - PO 40 mg DAILY ANU Administration Prednisone 30 mg 08/30/16 12:30 09/01/16 09:21 Deltasone - PO 30 mg DAILY ANU Administration Ramipril 2.5 mg 08/30/16 10:00 09/01/16 09:21 Altace - PO 2.5 mg DAILY ANU Administration O: 70 year old female was in no acute distress, no pallor, cyanosis, clubbing, or jaundice. Last Vital Signs Temp Pulse Resp BP Pulse Ox 100.6 F H 84 20 117/60 94 L 09/01/16 05:47 09/01/16 05:47 09/01/16 05:47 09/01/16 05:47 09/01/16 04:00 Neck: Supple, no JVD, negative HJR, carotids were equal and upstrokes were normal, no thyromegaly appreciated. Heart: PMI was in the 5th intercostal space, no heaves or thrills, S1 and S2 were normal. No murmurs or gallops were appreciated. Lungs: Scattered basilar crepitations, more pronounced on the left base. Abdomen: Soft, obese, nontender, no hepatosplenomegaly appreciated, and no palpable masses were felt. Extremities: No calf tenderness or dependent edema. Pulses are normal. CBC, BMP 08/30/16 05:45 08/30/16 08:20 Laboratory Results - last 24 hr 08/31/16 09/01/16 09/01/16 11:52 03:15 03:44 POC Glucometer 236 200 Creatine Kinase 46 Troponin I 0.03 09/01/16 06:26 POC Glucometer 188 Creatine Kinase Troponin I Impression: (1) Shortness of breath, etiology; a. secondary to exacerbation of COPD b. angina equivalent needs exclusion Code(s): R06.02 - SHORTNESS OF BREATH (2) COPD exacerbation Code(s): J44.1 - CHRONIC OBSTRUCTIVE PULMONARY DISEASE W (ACUTE) EXACERBATION (3) Chest pain syndrome, with elevated troponin levels, consistent with coronary artery disease / angina pectoris. Code(s): R07.89 - OTHER CHEST PAIN (4) Hypertension Code(s): I10 - ESSENTIAL (PRIMARY) HYPERTENSION Qualifiers: Hypertension type: essential hypertension Qualified Code(s): I10 - Essential (primary) hypertension (5) Diabetes Mellitus, poorly controlled Code(s): E11.9 - TYPE 2 DIABETES MELLITUS WITHOUT COMPLICATIONS Qualifiers: Diabetes mellitus type: type 2 Diabetes mellitus complication status: without complication Diabetes mellitus buttermaker helper insulin use: without halfway use Qualified Code(s): E11.9 - Type 2 diabetes mellitus without complications (6) Diabetic neuropathy Code(s): E11.40 - TYPE 2 DIABETES MELLITUS WITH DIABETIC NEUROPATHY, UNSP Qualifiers: Diabetes mellitus type: type 2 (7) Hypercholesterolemia Code(s): E78.0 - PURE HYPERCHOLESTEROLEMIA * DO NOT USE * (8) Poor compliance Code(s): Z91.19 - PATIENT'S NONCOMPLIANCE W OTH MEDICAL TREATMENT AND REGIMEN (9) Exogenous Obesity Code(s): E66.9 - OBESITY, UNSPECIFIED Recommendations: 1. Continue current cardiac therapy. 2. When pulmonary status is stable, consider myoview stress test. 3. Risk modifications. Attestation: Documentation prepared by Thierry Ivan, acting as hospital medical assistant for Christian Haley MD.
--- NOTE | 2016-09-01 11:37 | PN ---
Progress Note (short form) - Note Progress Note: Subjective Patient seen and examined. Chart reviewed. Events noted of last night Denies any cp now Had fever last night Given empirically levaquin as well as cultures sent Breathing is stable Overall feels weak Objective Last Vital Signs Temp Pulse Resp BP Pulse Ox 100.6 F H 84 20 117/60 94 L 09/01/16 05:47 09/01/16 05:47 09/01/16 05:47 09/01/16 05:47 09/01/16 04:00 Labs: CBC, BMP 08/30/16 05:45 08/30/16 08:20 Problem List - Problems (1) Acute electrocardiogram changes Code(s): R94.31 - ABNORMAL ELECTROCARDIOGRAM [ECG] [EKG] (2) Chest discomfort Code(s): R07.89 - OTHER CHEST PAIN (3) Hypertension Code(s): I10 - ESSENTIAL (PRIMARY) HYPERTENSION Qualifiers: Hypertension type: essential hypertension Qualified Code(s): I10 - Essential (primary) hypertension (4) Shortness of breath Code(s): R06.02 - SHORTNESS OF BREATH (5) Diabetes Code(s): E11.9 - TYPE 2 DIABETES MELLITUS WITHOUT COMPLICATIONS Qualifiers: Diabetes mellitus type: type 2 Diabetes mellitus complication status: without complication Diabetes mellitus alf insulin use: without alf use Qualified Code(s): E11.9 - Type 2 diabetes mellitus without complications Physical Exam Constitutional: Yes: No Distress Cardiovascular: Yes: Regular Rate and Rhythm Respiratory: Yes: Diminished, Rhonchi Gastrointestinal: Yes: Normal Bowel Sounds, Soft, Abdomen, Obese. No: Distention, Tenderness Edema: No Assessment and Plan Febrile and weak today Got levaquin Will not discharge today Follow up labs and cultures Check CXR Check Influenza Will follow Documentation prepared by Windy Dutta, acting as a medical appliance maker for Veronica Carroll MD.
[2016-09-01] MEDS ORDERED: INSULIN (NOVOLOG) ASPART 100 UNITS/ML 10ML VIAL ONE (12:08)
--- NOTE | 2016-09-01 12:13 | PN ---
Progress Note, Physician History of Present Illness: PULMONARY ALERT,COMFORTABLE,LESS CONGESTED,LESS COUGH,+FEBRILE - Current Medication List Current Medications: Active Medications Acetaminophen (Tylenol -) 650 mg PO Q6H PRN PRN Reason: FEVER OR PAIN Last Admin: 09/01/16 04:00 Dose: 650 mg Albuterol Sulfate (Ventolin 0.083% Nebulizer Soln -) 1 amp NEB Q4H PRN PRN Reason: SHORT OF BREATH/WHEEZING Last Admin: 08/30/16 10:31 Dose: 1 amp Albuterol/Ipratropium (Duoneb -) 1 amp NEB Q4H PRN PRN Reason: SHORTNESS OF BREATH Last Admin: 09/01/16 02:56 Dose: 1 amp Amitriptyline HCl (Elavil -) 25 mg PO DAILY [facility] Last Admin: 09/01/16 09:20 Dose: 25 mg Atorvastatin Calcium (Lipitor -) 20 mg PO HS [facility] Last Admin: 08/31/16 22:33 Dose: 20 mg Budesonide/Formoterol Fumarate (Symbicort 160/4.5mcg -) 2 puff IH BID [facility] Last Admin: 09/01/16 09:22 Dose: 2 puff Enoxaparin Sodium (Lovenox -) 40 mg SQ DAILY [facility] Last Admin: 09/01/16 09:21 Dose: 40 mg Gabapentin (Neurontin -) 100 mg PO BID [facility] Last Admin: 09/01/16 09:21 Dose: 100 mg Glipizide (Glucotrol -) 2.5 mg PO BIDAC [facility] Last Admin: 09/01/16 06:33 Dose: 2.5 mg Insulin Aspart (Novolog Vial Sliding Scale -) 1 vial SQ TIDAC [facility] PRN Reason: Protocol Last Admin: 09/01/16 06:27 Dose: 2 units Levothyroxine Sodium (Synthroid -) 100 mcg PO DAILY@0700 [facility] Last Admin: 09/01/16 06:33 Dose: 100 mcg Metformin HCl (Glucophage -) 500 mg PO BIDAC [facility] Last Admin: 09/01/16 06:33 Dose: 500 mg Nebivolol (Bystolic -) 5 mg PO DAILY [facility] Last Admin: 09/01/16 09:21 Dose: 5 mg Pantoprazole Sodium (Protonix -) 40 mg PO DAILY [facility] Last Admin: 09/01/16 09:20 Dose: 40 mg Prednisone (Deltasone -) 30 mg PO DAILY [facility] Last Admin: 09/01/16 09:21 Dose: 30 mg Ramipril (Altace -) 2.5 mg PO DAILY [facility] Last Admin: 09/01/16 09:21 Dose: 2.5 mg - Objective Vital Signs: Vital Signs Temperature 100.6 F H 09/01/16 05:47 Pulse Rate 84 09/01/16 05:47 Respiratory Rate 20 09/01/16 05:47 Blood Pressure 117/60 09/01/16 05:47 O2 Sat by Pulse Oximetry (%) 94 L 09/01/16 04:00 Constitutional: Yes: Well Nourished, Calm Eyes: Yes: WNL HENT: Yes: WNL Neck: Yes: WNL Cardiovascular: Yes: Regular Rate and Rhythm, S1, S2 Respiratory: Yes: Rales ([place] CRACKLES) Gastrointestinal: Yes: Normal Bowel Sounds, Soft Extremities: Yes: WNL Edema: No Labs: CBC, BMP Problem List - Problems (1) Interstitial lung disease Code(s): J84.9 - INTERSTITIAL PULMONARY DISEASE, UNSPECIFIED Assessment/Plan Problem List - Problems (1) Acute electrocardiogram changes Code(s): R94.31 - ABNORMAL ELECTROCARDIOGRAM [ECG] [EKG] (2) Chest discomfort Code(s): R07.89 - OTHER CHEST PAIN (3) Hypertension Code(s): I10 - ESSENTIAL (PRIMARY) HYPERTENSION Qualifiers: Hypertension type: essential hypertension Qualified Code(s): I10 - Essential (primary) hypertension (4) Influenza A Code(s): J10.1 - FLU DUE TO OTH IDENT INFLUENZA VIRUS W OTH RESP MANIFEST (5) Shortness of breath Code(s): R06.02 - SHORTNESS OF BREATH (6) Cough Code(s): R05 - COUGH (7) Diabetes Code(s): E11.9 - TYPE 2 DIABETES MELLITUS WITHOUT COMPLICATIONS Qualifiers: Diabetes mellitus type: type 2 Diabetes mellitus complication status: without complication Diabetes mellitus supervisor long goods insulin use: without supervisor long goods use Qualified Code(s): E11.9 - Type 2 diabetes mellitus without complications (8) Diabetic neuropathy Code(s): E11.40 - TYPE 2 DIABETES MELLITUS WITH DIABETIC NEUROPATHY, UNSP Qualifiers: Diabetes mellitus type: type 2 (9) Hypercholesterolemia Code(s): E78.0 - PURE HYPERCHOLESTEROLEMIA * DO NOT USE * (10) Hyperlipidemia associated with type 2 diabetes mellitus Code(s): E11.69 - TYPE 2 DIABETES MELLITUS WITH OTHER SPECIFIED COMPLICATION E78.5 - HYPERLIPIDEMIA, UNSPECIFIED (11) Hypothyroidism Code(s): E03.9 - HYPOTHYROIDISM, UNSPECIFIED Qualifiers: Hypothyroidism type: unspecified Qualified Code(s): E03.9 - Hypothyroidism, unspecified (12) Interstitial lung disease Assessment/Plan: Question of Hypersensitivity Pneumonitis on radiology report. Changes have been present on imaging since at least 2013. Definitive diagnosis can usually only be made by tissue diagnosis. Although difficult to categorize, her CT lacks honeycombing, fibrotic changes, bronchiectasis, etc. After she is medically stable, further workup is warranted. Code(s): J84.9 - INTERSTITIAL PULMONARY DISEASE, UNSPECIFIED (13) Radiculopathy Code(s): M54.10 - RADICULOPATHY, SITE UNSPECIFIED Assessment/Plan PLAN: Symbicort BID O2 as needed No smoking discussed further ILD workup on discharge Prednisone 30 mg OD PFTS outpatient DR VYAS
[2016-09-01 13:51] LABS: MCH 28.9 pg (25.7-33.7); MCHC 32.6 g/dl (32.0-36.0); MEAN CELL VOLUME 88.6 fl (80-96); MEAN PLT VOLUME 9.2 fl (7.5-11.1); PLATELET COUNT 158 K/MM3 (134-434); RDW 12.8 % (11.6-15.6); WHITE BLOOD COUNT 20.2 K/mm3 (4.0-10.0)
[2016-09-01 14:13] LABS: PLATELET ESTIMATE ADEQUATE (NORMAL)
[2016-09-01 14:20] LABS: ALBUMIN 2.9 g/dl (3.4-5.0); ANION GAP 9 (8-16); BILIRUBIN,TOTAL 0.9 mg/dL (0.2-1.0); CALCIUM 9.3 mg/dL (8.5-10.1); CO2 28 mmol/L (21-32); CREATININE 0.9 mg/dL (0.55-1.02); SGOT/AST 9 U/L (15-37); SGPT/ALT 23 U/L (12-78)
[2016-09-01 14:21] LABS: ALK PHOS 83 U/L (45-117); TOT PROT 6.1 g/dl (6.4-8.2)
[2016-09-01 14:26] LABS: GLUCOSE,RANDOM 338 mg/dL (74-106)
[2016-09-01] MEDS: ATORVASTATIN CA 20 MG TABLET (FP) PO SCH (23:28)
[2016-09-02] MEDS: INSULIN SLIDING SCALE (NOVOLOG) 1 VIAL SQ SCH ×3 (06:31→16:43)
[2016-09-02] MEDS: LEVOTHYROXINE NA 100 MCG TABLET (FP) PO SCH (06:35)
[2016-09-02] MEDS: metFORMIN HCL 500 MG TABLET (FP) PO SCH ×2 (06:35→16:43)
[2016-09-02] MEDS: glipiZIDE 5 MG TABLET (FP) PO SCH ×2 (06:35→16:43)
[2016-09-02 07:41] LABS: BASOPHIL 0.5 % (0-2.0); EOSINOPHIL 1.8 % (0-4.5); MCH 29.5 pg (25.7-33.7); MCHC 33.5 g/dl (32.0-36.0); MEAN CELL VOLUME 88.1 fl (80-96); NEUTROPHILS 85.1 % (42.8-82.8); WHITE BLOOD COUNT 17.5 K/mm3 (4.0-10.0)
[2016-09-02] MEDS: PANTOPRAZOLE 40 MG TABLET (FP) PO SCH (09:12)
[2016-09-02] MEDS: NEBIVOLOL 5 MG TABLET (FP) PO SCH (09:12)
[2016-09-02] MEDS: ENOXAPARIN NA (PORCINE) 40 MG/0.4 ML DISP.SYRIN SQ SCH (09:12)
[2016-09-02] MEDS: RAMIPRIL 2.5 MG CAPSULE (FP) PO SCH (09:12)
[2016-09-02] MEDS: LEVOFLOXACIN 500 MG IVPB 100 ML IVPB SCH (09:13)
[2016-09-02] MEDS: AMITRIPTYLINE HCL 25 MG TABLET (FP) PO SCH (09:13)
[2016-09-02] MEDS: BUDESONIDE/FORMETEROL FUMARATE 160/4.5 mcg INHALER IH SCH ×2 (09:13→22:41)
[2016-09-02] MEDS: predniSONE 20 MG TABLET (UD) PO SCH (09:13)
[2016-09-02] MEDS: GABAPENTIN 100 MG CAPSULE (FP) PO SCH ×2 (09:13→22:41)
[2016-09-02 09:55] LABS: URINE APPEARANCE SLCLOUDY; URINE BILIRUBIN NEGATIVE (NEGATIVE); URINE BLOOD NEGATIVE (NEGATIVE); URINE COLOR STRAW; URINE GLUCOSE (UA) NEGATIVE (NEGATIVE); URINE KETONE NEGATIVE (NEGATIVE); URINE LEUK ESTERASE NEGATIVE (NEGATIVE); URINE NITRITE NEGATIVE (NEGATIVE); URINE PROTEIN NEGATIVE (NEGATIVE); URINE UROBILINOGEN NEGATIVE E.U./dl (0.2-1.0)
[2016-09-02 10:03] LABS: PLATELET COMMENT2 NO CLOTTING DETECTED; PLATELET COUNT 162 K/MM3 (134-434); PLATELET ESTIMATE ADEQUATE (NORMAL)
--- NOTE | 2016-09-02 10:16 | PN ---
Progress Note, Physician History of Present Illness: PULMONARY ALERT,FEELING BETTER,LESS COUGH,LESS CONGESTION - Current Medication List Current Medications: Active Medications Acetaminophen (Tylenol -) 650 mg PO Q6H PRN PRN Reason: FEVER OR PAIN Last Admin: 09/01/16 04:00 Dose: 650 mg Albuterol Sulfate (Ventolin 0.083% Nebulizer Soln -) 1 amp NEB Q4H PRN PRN Reason: SHORT OF BREATH/WHEEZING Last Admin: 08/30/16 10:31 Dose: 1 amp Albuterol/Ipratropium (Duoneb -) 1 amp NEB Q4H PRN PRN Reason: SHORTNESS OF BREATH Last Admin: 09/01/16 02:56 Dose: 1 amp Amitriptyline HCl (Elavil -) 25 mg PO DAILY [facility] Last Admin: 09/02/16 09:13 Dose: 25 mg Atorvastatin Calcium (Lipitor -) 20 mg PO HS [facility] Last Admin: 09/01/16 23:28 Dose: 20 mg Budesonide/Formoterol Fumarate (Symbicort 160/4.5mcg -) 2 puff IH BID [facility] Last Admin: 09/02/16 09:13 Dose: 2 puff Enoxaparin Sodium (Lovenox -) 40 mg SQ DAILY [facility] Last Admin: 09/02/16 09:12 Dose: 40 mg Gabapentin (Neurontin -) 100 mg PO BID [facility] Last Admin: 09/02/16 09:13 Dose: 100 mg Glipizide (Glucotrol -) 2.5 mg PO BIDAC [facility] Last Admin: 09/02/16 06:35 Dose: 2.5 mg Levofloxacin (Levaquin 500 Mg Premixed Ivpb -) 100 mls @ 100 mls/hr IVPB DAILY [facility] Last Admin: 09/02/16 09:13 Dose: 100 mls/hr Insulin Aspart (Novolog Vial Sliding Scale -) 1 vial SQ TIDAC [facility] PRN Reason: Protocol Last Admin: 09/02/16 06:31 Dose: 2 units Levothyroxine Sodium (Synthroid -) 100 mcg PO DAILY@0700 [facility] Last Admin: 09/02/16 06:35 Dose: 100 mcg Metformin HCl (Glucophage -) 500 mg PO BIDAC [facility] Last Admin: 09/02/16 06:35 Dose: 500 mg Nebivolol (Bystolic -) 5 mg PO DAILY [facility] Last Admin: 09/02/16 09:12 Dose: 5 mg Pantoprazole Sodium (Protonix -) 40 mg PO DAILY [facility] Last Admin: 09/02/16 09:12 Dose: 40 mg Prednisone (Deltasone -) 30 mg PO DAILY [facility] Last Admin: 09/02/16 09:13 Dose: 30 mg Ramipril (Altace -) 2.5 mg PO DAILY [facility] Last Admin: 09/02/16 09:12 Dose: 2.5 mg - Objective Vital Signs: Vital Signs Temperature 97.0 F L 09/02/16 06:00 Pulse Rate 58 L 09/02/16 06:00 Respiratory Rate 20 09/02/16 06:00 Blood Pressure 113/57 09/02/16 06:00 O2 Sat by Pulse Oximetry (%) 97 09/02/16 02:00 Constitutional: Yes: Well Nourished, Calm Eyes: Yes: WNL HENT: Yes: WNL Neck: Yes: WNL Cardiovascular: Yes: Regular Rate and Rhythm, S1, S2 Respiratory: Yes: Rales (BILATERAL CRACKLES) Gastrointestinal: Yes: Normal Bowel Sounds, Soft Extremities: Yes: WNL Edema: No Labs: CBC, BMP 09/02/16 06:00 Problem List - Problems (1) Interstitial lung disease Code(s): J84.9 - INTERSTITIAL PULMONARY DISEASE, UNSPECIFIED Assessment/Plan Problem List - Problems (1) Acute electrocardiogram changes Code(s): R94.31 - ABNORMAL ELECTROCARDIOGRAM [ECG] [EKG] (2) Chest discomfort Code(s): R07.89 - OTHER CHEST PAIN (3) Hypertension Code(s): I10 - ESSENTIAL (PRIMARY) HYPERTENSION Qualifiers: Hypertension type: essential hypertension Qualified Code(s): I10 - Essential (primary) hypertension (4) Influenza A Code(s): J10.1 - FLU DUE TO OTH IDENT INFLUENZA VIRUS W OTH RESP MANIFEST (5) Shortness of breath Code(s): R06.02 - SHORTNESS OF BREATH (6) Cough Code(s): R05 - COUGH (7) Diabetes Code(s): E11.9 - TYPE 2 DIABETES MELLITUS WITHOUT COMPLICATIONS Qualifiers: Diabetes mellitus type: type 2 Diabetes mellitus complication status: without complication Diabetes mellitus [facility] insulin use: without [facility] use Qualified Code(s): E11.9 - Type 2 diabetes mellitus without complications (8) Diabetic neuropathy Code(s): E11.40 - TYPE 2 DIABETES MELLITUS WITH DIABETIC NEUROPATHY, UNSP Qualifiers: Diabetes mellitus type: type 2 (9) Hypercholesterolemia Code(s): E78.0 - PURE HYPERCHOLESTEROLEMIA * DO NOT USE * (10) Hyperlipidemia associated with type 2 diabetes mellitus Code(s): E11.69 - TYPE 2 DIABETES MELLITUS WITH OTHER SPECIFIED COMPLICATION E78.5 - HYPERLIPIDEMIA, UNSPECIFIED (11) Hypothyroidism Code(s): E03.9 - HYPOTHYROIDISM, UNSPECIFIED Qualifiers: Hypothyroidism type: unspecified Qualified Code(s): E03.9 - Hypothyroidism, unspecified (12) Interstitial lung disease Assessment/Plan: Question of Hypersensitivity Pneumonitis on radiology report. Changes have been present on imaging since at least 2013. Definitive diagnosis can usually only be made by tissue diagnosis. Although difficult to categorize, her CT lacks honeycombing, fibrotic changes, bronchiectasis, etc. After she is medically stable, further workup is warranted. Code(s): J84.9 - INTERSTITIAL PULMONARY DISEASE, UNSPECIFIED (13) Radiculopathy Code(s): M54.10 - RADICULOPATHY, SITE UNSPECIFIED Assessment/Plan PLAN: Symbicort BID O2 as needed No smoking discussed further ILD workup on discharge Continue Prednisone PFTS outpatient DR VYAS
--- NOTE | 2016-09-02 11:56 | PN ---
Progress Note (short form) - Note Progress Note: Chief Complaint: Events noted, notes reviewed, denies any chest pain or dyspnea History of Present Illness: Seen and examined on telemetry. Events noted, notes reviewed, denies any chest pain or dyspnea Echocardiography performed 08/11/16 revealed normal LV size and function, mild MR , AR and TR, MAC and AV sclerosis - Current Medication List Current Medications Acetaminophen (Tylenol -) 650 mg PO Q6H PRN PRN Reason: FEVER OR PAIN Last Admin: 09/01/16 04:00 Dose: 650 mg Albuterol Sulfate (Ventolin 0.083% Nebulizer Soln -) 1 amp NEB Q4H PRN PRN Reason: SHORT OF BREATH/WHEEZING Last Admin: 08/30/16 10:31 Dose: 1 amp Albuterol/Ipratropium (Duoneb -) 1 amp NEB Q4H PRN PRN Reason: SHORTNESS OF BREATH Last Admin: 09/01/16 02:56 Dose: 1 amp Amitriptyline HCl (Elavil -) 25 mg PO DAILY [facility] Last Admin: 09/02/16 09:13 Dose: 25 mg Atorvastatin Calcium (Lipitor -) 20 mg PO HS [facility] Last Admin: 09/01/16 23:28 Dose: 20 mg Budesonide/Formoterol Fumarate (Symbicort 160/4.5mcg -) 2 puff IH BID [facility] Last Admin: 09/02/16 09:13 Dose: 2 puff Enoxaparin Sodium (Lovenox -) 40 mg SQ DAILY [facility] Last Admin: 09/02/16 09:12 Dose: 40 mg Gabapentin (Neurontin -) 100 mg PO BID [facility] Last Admin: 09/02/16 09:13 Dose: 100 mg Glipizide (Glucotrol -) 2.5 mg PO BIDAC [facility] Last Admin: 09/02/16 06:35 Dose: 2.5 mg Levofloxacin (Levaquin 500 Mg Premixed Ivpb -) 100 mls @ 100 mls/hr IVPB DAILY [facility] Last Admin: 09/02/16 09:13 Dose: 100 mls/hr Insulin Aspart (Novolog Vial Sliding Scale -) 1 vial SQ TIDAC [facility] PRN Reason: Protocol Last Admin: 09/02/16 11:50 Dose: 4 units Levothyroxine Sodium (Synthroid -) 100 mcg PO DAILY@0700 [facility] Last Admin: 09/02/16 06:35 Dose: 100 mcg Metformin HCl (Glucophage -) 500 mg PO BIDAC [facility] Last Admin: 09/02/16 06:35 Dose: 500 mg Nebivolol (Bystolic -) 5 mg PO DAILY [facility] Last Admin: 09/02/16 09:12 Dose: 5 mg Pantoprazole Sodium (Protonix -) 40 mg PO DAILY [facility] Last Admin: 09/02/16 09:12 Dose: 40 mg Prednisone (Deltasone -) 30 mg PO DAILY [facility] Last Admin: 09/02/16 09:13 Dose: 30 mg Ramipril (Altace -) 2.5 mg PO DAILY [facility] Last Admin: 09/02/16 09:12 Dose: 2.5 mg Review of Systems Cardiovascular: As noted above Respiratory: denies: denies: Cough Gastrointestinal: denies: Nausea, Vomiting, Diarrhea, Constipation or Abdominal Discomfort Musculoskeletal: No Symptoms Reported Endocrine: No Symptoms Reported - Objective Vital Signs: Last Vital Signs Temp Pulse Resp BP Pulse Ox 97.0 F L 58 L 20 113/57 98 09/02/16 06:00 09/02/16 06:00 09/02/16 06:00 09/02/16 06:00 09/02/16 10:00 Neck: Supple Negative JVD No bruit Cardiovascular: S1 S2 Regular Rate and Rhythm Grade 1-2/6 JING Respiratory: Diminished Breath Sounds at the Bases Gastrointestinal: Soft Benign Normal Bowel Sounds Ext: No Edema Labs: ABG Results ABG pH 7.45 (7.35-7.45) 08/29/16 10:58 ABG pCO2 at Pt Temp 35.1 mmHg (35-45) 08/29/16 10:58 ABG pO2 at Pt Temp 67.3 mmHg (70-100) L 08/29/16 10:58 ABG HCO3 24.3 meq/L (22-26) 08/29/16 10:58 ABG O2 Sat (Measured) 94.2 % (90-98.9) 08/29/16 10:58 ABG O2 Content 18.5 % vol (15-22) 08/29/16 10:58 ABG Base Excess 1.3 meq/l (-2-2) 08/29/16 10:58 CBC, BMP 09/02/16 06:00 09/01/16 13:30 Hepatic Panel Total Bilirubin 0.9 mg/dL (0.2-1.0) 09/01/16 13:30 AST 9 U/L (15-37) L D 09/01/16 13:30 ALT 23 U/L (12-78) D 09/01/16 13:30 Alkaline Phosphatase 83 U/L (45-117) 09/01/16 13:30 Albumin 2.9 g/dl (3.4-5.0) L 09/01/16 13:30 Assessment/Plan ASSESSMENT: 1. COPD exacerbation with recent history of acute bronchitis and COPD exacerbation 2. 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 HTN 4. DM 5. Hypercholesterolemia 6. Hypothyroidism 7. Peripheral diabetic neuropathy PLAN: 1. Continue Bystolic 2. Continue Ramipril 3. Continue Lipitor 4. Add ASA 5. Continue antibiotics, bronchodilators and steroids taper as per pulmonary service 6. Additional cardiovascular evaluation including MPI study can be done as outpatient once the above noted exacerbation has resolved Jameson Tinoco MD
--- NOTE | 2016-09-02 13:24 | EKG ---
Test Reason : Blood Pressure : / mmHG Vent. Rate : 070 BPM Atrial Rate : 070 BPM P-R Int : 136 ms QRS Dur : 118 ms QT Int : 372 ms P-R-T Axes : 013 -60 068 degrees QTc Int : 401 ms NORMAL SINUS RHYTHM LEFT ANTERIOR FASCICULAR BLOCK CANNOT RULE OUT LATERAL INFARCT , AGE UNDETERMINED ABNORMAL ECG WHEN COMPARED WITH ECG OF 29-AUG-2016 10:22, NO SIGNIFICANT CHANGE WAS FOUND Confirmed by CAROL ANN HENDERSON MD ([id number]) on 09/02/2016 1:24:25 PM Referred By: Confirmed By:CAROL ANN HENDERSON MD
--- NOTE | 2016-09-02 13:55 | PN ---
Progress Note (short form) - Note Progress Note: looks and feels better sitting in chair denies cp. improved sob. no abd pain. Vital Signs Temp 97.0 F L 09/02/16 06:00 Pulse 58 L 09/02/16 06:00 Resp 20 09/02/16 06:00 BP 113/57 09/02/16 06:00 Pulse Ox 98 09/02/16 10:00 Intake & Output 09/01/16 09/02/16 09/02/16 23:59 11:59 23:59 Intake Total 600 Output Total 1 Balance 599 Intake: Oral 600 Output: Emesis 1 Other: Voiding Method Toilet Toilet Active Medications Acetaminophen (Tylenol -) 650 mg PO Q6H PRN PRN Reason: FEVER OR PAIN Last Admin: 09/01/16 04:00 Dose: 650 mg Albuterol Sulfate (Ventolin 0.083% Nebulizer Soln -) 1 amp NEB Q4H PRN PRN Reason: SHORT OF BREATH/WHEEZING Last Admin: 08/30/16 10:31 Dose: 1 amp Albuterol/Ipratropium (Duoneb -) 1 amp NEB Q4H PRN PRN Reason: SHORTNESS OF BREATH Last Admin: 09/01/16 02:56 Dose: 1 amp Amitriptyline HCl (Elavil -) 25 mg PO DAILY [facility] Last Admin: 09/02/16 09:13 Dose: 25 mg Atorvastatin Calcium (Lipitor -) 20 mg PO HS [facility] Last Admin: 09/01/16 23:28 Dose: 20 mg Budesonide/Formoterol Fumarate (Symbicort 160/4.5mcg -) 2 puff IH BID [facility] Last Admin: 09/02/16 09:13 Dose: 2 puff Enoxaparin Sodium (Lovenox -) 40 mg SQ DAILY [facility] Last Admin: 09/02/16 09:12 Dose: 40 mg Gabapentin (Neurontin -) 100 mg PO BID [facility] Last Admin: 09/02/16 09:13 Dose: 100 mg Glipizide (Glucotrol -) 2.5 mg PO BIDAC [facility] Last Admin: 09/02/16 06:35 Dose: 2.5 mg Levofloxacin (Levaquin 500 Mg Premixed Ivpb -) 100 mls @ 100 mls/hr IVPB DAILY [facility] Last Admin: 09/02/16 09:13 Dose: 100 mls/hr Insulin Aspart (Novolog Vial Sliding Scale -) 1 vial SQ TIDAC [facility] PRN Reason: Protocol Last Admin: 09/02/16 11:50 Dose: 4 units Levothyroxine Sodium (Synthroid -) 100 mcg PO DAILY@0700 [facility] Last Admin: 09/02/16 06:35 Dose: 100 mcg Metformin HCl (Glucophage -) 500 mg PO BIDAC [facility] Last Admin: 09/02/16 06:35 Dose: 500 mg Nebivolol (Bystolic -) 5 mg PO DAILY [facility] Last Admin: 09/02/16 09:12 Dose: 5 mg Pantoprazole Sodium (Protonix -) 40 mg PO DAILY [facility] Last Admin: 09/02/16 09:12 Dose: 40 mg Prednisone (Deltasone -) 30 mg PO DAILY [facility] Last Admin: 09/02/16 09:13 Dose: 30 mg Ramipril (Altace -) 2.5 mg PO DAILY [facility] Last Admin: 09/02/16 09:12 Dose: 2.5 mg CBC, BMP 09/02/16 06:00 09/01/16 13:30 Problem List - Problems (1) Acute electrocardiogram changes Code(s): R94.31 - ABNORMAL ELECTROCARDIOGRAM [ECG] [EKG] (2) Chest discomfort Code(s): R07.89 - OTHER CHEST PAIN (3) Hypertension Code(s): I10 - ESSENTIAL (PRIMARY) HYPERTENSION Qualifiers: Hypertension type: essential hypertension Qualified Code(s): I10 - Essential (primary) hypertension (4) Shortness of breath Code(s): R06.02 - SHORTNESS OF BREATH (5) Diabetes Code(s): E11.9 - TYPE 2 DIABETES MELLITUS WITHOUT COMPLICATIONS Qualifiers: Diabetes mellitus type: type 2 Diabetes mellitus complication status: without complication Diabetes mellitus dedicated intermodal truck driver insulin use: without dedicated intermodal truck driver use Qualified Code(s): E11.9 - Type 2 diabetes mellitus without complications Physical Exam Constitutional: Yes: Better Cardiovascular: Yes: Regular Rate and Rhythm Respiratory: Yes: Diminished, Rhonchi- scattered Gastrointestinal: Yes: Normal Bowel Sounds, Soft, Abdomen, Obese. No: Distention, Tenderness Edema: No Assessment and Plan better continue abx cultures -ve so far incentive spirometry cxr noted will follow
[2016-09-02] MEDS: ALBUTEROL SO4 2.5/IPRATROPIUM 0.5 INH SOL 3 ML VIAL.NEB. NEB PRN (21:30)
[2016-09-02] MEDS: ATORVASTATIN CA 20 MG TABLET (FP) PO SCH (22:41)
[2016-09-03] MEDS: glipiZIDE 5 MG TABLET (FP) PO SCH ×2 (06:33→16:34)
[2016-09-03] MEDS: metFORMIN HCL 500 MG TABLET (FP) PO SCH ×2 (06:33→16:34)
[2016-09-03] MEDS: LEVOTHYROXINE NA 100 MCG TABLET (FP) PO SCH (06:33)
[2016-09-03] MEDS: INSULIN SLIDING SCALE (NOVOLOG) 1 VIAL SQ SCH ×3 (06:33→16:32)
[2016-09-03] MEDS: ENOXAPARIN NA (PORCINE) 40 MG/0.4 ML DISP.SYRIN SQ SCH (09:30)
[2016-09-03] MEDS: PANTOPRAZOLE 40 MG TABLET (FP) PO SCH (09:31)
[2016-09-03] MEDS: NEBIVOLOL 5 MG TABLET (FP) PO SCH (09:31)
[2016-09-03] MEDS: GABAPENTIN 100 MG CAPSULE (FP) PO SCH ×2 (09:31→22:21)
[2016-09-03] MEDS: predniSONE 20 MG TABLET (UD) PO SCH (09:31)
[2016-09-03] MEDS: LEVOFLOXACIN 500 MG IVPB 100 ML IVPB SCH (09:31)
[2016-09-03] MEDS: RAMIPRIL 2.5 MG CAPSULE (FP) PO SCH (09:31)
[2016-09-03] MEDS: BUDESONIDE/FORMETEROL FUMARATE 160/4.5 mcg INHALER IH SCH ×2 (09:32→22:20)
[2016-09-03] MEDS: AMITRIPTYLINE HCL 25 MG TABLET (FP) PO SCH (09:33)
--- NOTE | 2016-09-03 09:34 | PN ---
Progress Note (short form) - Note Progress Note: Chief Complaint: Events noted, notes reviewed, sitting in a chair denies any chest pain or dyspnea History of Present Illness: Seen and examined on telemetry. Events noted, notes reviewed, sitting in a chair denies any chest pain or dyspnea Echocardiography performed 08/11/16 revealed normal LV size and function, mild MR , AR and TR, MAC and AV sclerosis - Current Medication List Current Medications Acetaminophen (Tylenol -) 650 mg PO Q6H PRN PRN Reason: FEVER OR PAIN Last Admin: 09/01/16 04:00 Dose: 650 mg Albuterol Sulfate (Ventolin 0.083% Nebulizer Soln -) 1 amp NEB Q4H PRN PRN Reason: SHORT OF BREATH/WHEEZING Last Admin: 08/30/16 10:31 Dose: 1 amp Albuterol/Ipratropium (Duoneb -) 1 amp NEB Q4H PRN PRN Reason: SHORTNESS OF BREATH Last Admin: 09/02/16 21:30 Dose: 1 amp Amitriptyline HCl (Elavil -) 25 mg PO DAILY [facility] Last Admin: 09/02/16 09:13 Dose: 25 mg Atorvastatin Calcium (Lipitor -) 20 mg PO HS [facility] Last Admin: 09/02/16 22:41 Dose: 20 mg Budesonide/Formoterol Fumarate (Symbicort 160/4.5mcg -) 2 puff IH BID [facility] Last Admin: 09/02/16 22:41 Dose: 2 puff Enoxaparin Sodium (Lovenox -) 40 mg SQ DAILY [facility] Last Admin: 09/02/16 09:12 Dose: 40 mg Gabapentin (Neurontin -) 100 mg PO BID [facility] Last Admin: 09/02/16 22:41 Dose: 100 mg Glipizide (Glucotrol -) 2.5 mg PO BIDAC [facility] Last Admin: 09/03/16 06:33 Dose: 2.5 mg Levofloxacin (Levaquin 500 Mg Premixed Ivpb -) 100 mls @ 100 mls/hr IVPB DAILY [facility] Last Admin: 09/02/16 09:13 Dose: 100 mls/hr Insulin Aspart (Novolog Vial Sliding Scale -) 1 vial SQ TIDAC [facility] PRN Reason: Protocol Last Admin: 09/03/16 06:33 Dose: 2 units Levothyroxine Sodium (Synthroid -) 100 mcg PO DAILY@0700 [facility] Last Admin: 09/03/16 06:33 Dose: 100 mcg Metformin HCl (Glucophage -) 500 mg PO BIDAC [facility] Last Admin: 09/03/16 06:33 Dose: 500 mg Nebivolol (Bystolic -) 5 mg PO DAILY [facility] Last Admin: 09/02/16 09:12 Dose: 5 mg Pantoprazole Sodium (Protonix -) 40 mg PO DAILY [facility] Last Admin: 09/02/16 09:12 Dose: 40 mg Prednisone (Deltasone -) 30 mg PO DAILY [facility] Last Admin: 09/02/16 09:13 Dose: 30 mg Ramipril (Altace -) 2.5 mg PO DAILY [facility] Last Admin: 09/02/16 09:12 Dose: 2.5 mg Review of Systems Cardiovascular: As noted above Respiratory: denies: denies: Cough Gastrointestinal: denies: Nausea, Vomiting, Diarrhea, Constipation or Abdominal Discomfort Musculoskeletal: No Symptoms Reported Endocrine: No Symptoms Reported - Objective Vital Signs: Last Vital Signs Temp Pulse Resp BP Pulse Ox 98.1 F 91 H 18 103/65 96 09/03/16 08:45 09/03/16 08:45 09/03/16 08:46 09/03/16 08:45 09/03/16 08:46 Neck: Supple Negative JVD No bruit Cardiovascular: S1 S2 Regular Rate and Rhythm Grade 1-2/6 JING Respiratory: Diminished Breath Sounds at the Bases Gastrointestinal: Soft Benign Normal Bowel Sounds Ext: No Edema Labs: CBC, BMP 09/02/16 06:00 09/01/16 13:30 Assessment/Plan ASSESSMENT: 1. COPD exacerbation with recent history of acute bronchitis and COPD exacerbation, resolving 2. 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 Probable diastolic LV dysfunction with class 0 NYHA classification LV failure 4. HTN 5. DM 6. Hypercholesterolemia 7. Hypothyroidism 8. Peripheral diabetic neuropathy PLAN: 1. Continue Bystolic 2. Continue Ramipril 3. Continue Lipitor 4. Add ASA 5. Continue antibiotics, bronchodilators and steroids taper as per pulmonary service 6. As outlined additional cardiovascular evaluation including MPI study can be done as outpatient once the above noted exacerbation has resolved Jameson Tinoco MD
[2016-09-03] MEDS: ASPIRIN COATED 81 MG TABLET.EC PO SCH (10:37)
--- NOTE | 2016-09-03 10:44 | PN ---
Progress Note, Physician History of Present Illness: pulmonary alert,oob-chair,-sob,+cough - Current Medication List Current Medications: Active Medications Acetaminophen (Tylenol -) 650 mg PO Q6H PRN PRN Reason: FEVER OR PAIN Last Admin: 09/01/16 04:00 Dose: 650 mg Albuterol Sulfate (Ventolin 0.083% Nebulizer Soln -) 1 amp NEB Q4H PRN PRN Reason: SHORT OF BREATH/WHEEZING Last Admin: 08/30/16 10:31 Dose: 1 amp Albuterol/Ipratropium (Duoneb -) 1 amp NEB Q4H PRN PRN Reason: SHORTNESS OF BREATH Last Admin: 09/02/16 21:30 Dose: 1 amp Amitriptyline HCl (Elavil -) 25 mg PO DAILY [facility] Last Admin: 09/03/16 09:33 Dose: 25 mg Aspirin (Ecotrin -) 81 mg PO DAILY [facility] Last Admin: 09/03/16 10:37 Dose: 81 mg Atorvastatin Calcium (Lipitor -) 20 mg PO HS [facility] Last Admin: 09/02/16 22:41 Dose: 20 mg Budesonide/Formoterol Fumarate (Symbicort 160/4.5mcg -) 2 puff IH BID [facility] Last Admin: 09/03/16 09:32 Dose: 2 puff Enoxaparin Sodium (Lovenox -) 40 mg SQ DAILY [facility] Last Admin: 09/03/16 09:30 Dose: 40 mg Gabapentin (Neurontin -) 100 mg PO BID [facility] Last Admin: 09/03/16 09:31 Dose: 100 mg Glipizide (Glucotrol -) 2.5 mg PO BIDAC [facility] Last Admin: 09/03/16 06:33 Dose: 2.5 mg Levofloxacin (Levaquin 500 Mg Premixed Ivpb -) 100 mls @ 100 mls/hr IVPB DAILY [facility] Last Admin: 09/03/16 09:31 Dose: 100 mls/hr Insulin Aspart (Novolog Vial Sliding Scale -) 1 vial SQ TIDAC [facility] PRN Reason: Protocol Last Admin: 09/03/16 06:33 Dose: 2 units Levothyroxine Sodium (Synthroid -) 100 mcg PO DAILY@0700 [facility] Last Admin: 09/03/16 06:33 Dose: 100 mcg Metformin HCl (Glucophage -) 500 mg PO BIDAC [facility] Last Admin: 09/03/16 06:33 Dose: 500 mg Nebivolol (Bystolic -) 5 mg PO DAILY [facility] Last Admin: 09/03/16 09:31 Dose: 5 mg Pantoprazole Sodium (Protonix -) 40 mg PO DAILY [facility] Last Admin: 09/03/16 09:31 Dose: 40 mg Prednisone (Deltasone -) 30 mg PO DAILY [facility] Last Admin: 09/03/16 09:31 Dose: 30 mg Ramipril (Altace -) 2.5 mg PO DAILY [facility] Last Admin: 09/03/16 09:31 Dose: 2.5 mg - Objective Vital Signs: Vital Signs Temperature 98.1 F 09/03/16 08:45 Pulse Rate 91 H 09/03/16 08:45 Respiratory Rate 18 09/03/16 08:46 Blood Pressure 103/65 09/03/16 08:45 O2 Sat by Pulse Oximetry (%) 96 09/03/16 08:46 Constitutional: Yes: Well Nourished, Calm Eyes: Yes: WNL HENT: Yes: WNL Neck: Yes: WNL Cardiovascular: Yes: Regular Rate and Rhythm, S1, S2 Respiratory: Yes: Rales (noah crackles) Gastrointestinal: Yes: Normal Bowel Sounds, Soft Extremities: Yes: WNL Edema: No Labs: CBC, BMP Problem List - Problems (1) Interstitial lung disease Code(s): J84.9 - INTERSTITIAL PULMONARY DISEASE, UNSPECIFIED Assessment/Plan Problem List - Problems (1) Acute electrocardiogram changes Code(s): R94.31 - ABNORMAL ELECTROCARDIOGRAM [ECG] [EKG] (2) Chest discomfort Code(s): R07.89 - OTHER CHEST PAIN (3) Hypertension Code(s): I10 - ESSENTIAL (PRIMARY) HYPERTENSION Qualifiers: Hypertension type: essential hypertension Qualified Code(s): I10 - Essential (primary) hypertension (4) Influenza A Code(s): J10.1 - FLU DUE TO OTH IDENT INFLUENZA VIRUS W OTH RESP MANIFEST (5) Shortness of breath Code(s): R06.02 - SHORTNESS OF BREATH (6) Cough Code(s): R05 - COUGH (7) Diabetes Code(s): E11.9 - TYPE 2 DIABETES MELLITUS WITHOUT COMPLICATIONS Qualifiers: Diabetes mellitus type: type 2 Diabetes mellitus complication status: without complication Diabetes mellitus assisted insulin use: without assisted use Qualified Code(s): E11.9 - Type 2 diabetes mellitus without complications (8) Diabetic neuropathy Code(s): E11.40 - TYPE 2 DIABETES MELLITUS WITH DIABETIC NEUROPATHY, UNSP Qualifiers: Diabetes mellitus type: type 2 (9) Hypercholesterolemia Code(s): E78.0 - PURE HYPERCHOLESTEROLEMIA * DO NOT USE * (10) Hyperlipidemia associated with type 2 diabetes mellitus Code(s): E11.69 - TYPE 2 DIABETES MELLITUS WITH OTHER SPECIFIED COMPLICATION E78.5 - HYPERLIPIDEMIA, UNSPECIFIED (11) Hypothyroidism Code(s): E03.9 - HYPOTHYROIDISM, UNSPECIFIED Qualifiers: Hypothyroidism type: unspecified Qualified Code(s): E03.9 - Hypothyroidism, unspecified (12) Interstitial lung disease Assessment/Plan: Question of Hypersensitivity Pneumonitis on radiology report. Changes have been present on imaging since at least 2013. Definitive diagnosis can usually only be made by tissue diagnosis. Although difficult to categorize, her CT lacks honeycombing, fibrotic changes, bronchiectasis, etc. After she is medically stable, further workup is warranted. Code(s): J84.9 - INTERSTITIAL PULMONARY DISEASE, UNSPECIFIED (13) Radiculopathy Code(s): M54.10 - RADICULOPATHY, SITE UNSPECIFIED Assessment/Plan PLAN: Symbicort BID O2 as needed No smoking discussed further ILD workup on discharge Prednisone Chest x-ray PFTS outpatient DR VYAS
[2016-09-03] MEDS ORDERED: predniSONE 20 MG TABLET (UD) PO SCH (12:42)
--- NOTE | 2016-09-03 12:44 | PN ---
Progress Note (short form) - Note Progress Note: pt feels ok sitting in chair denies cp. improved sob. no abd pain. afebrile Vital Signs Temp 98.1 F 09/03/16 08:45 Pulse 91 H 09/03/16 08:45 Resp 18 09/03/16 08:46 BP 103/65 09/03/16 08:45 Pulse Ox 96 09/03/16 08:46 Intake & Output 09/02/16 09/03/16 09/03/16 23:59 11:59 23:59 Intake Total 360 Output Total 1 Balance 359 Intake: IV 0 Saline Lock 0 IVPB 10 Oral 350 Output: Emesis 1 Other: Voiding Method Toilet Toilet # Unmeasured Voids Void 1 Active Medications Acetaminophen (Tylenol -) 650 mg PO Q6H PRN PRN Reason: FEVER OR PAIN Last Admin: 09/01/16 04:00 Dose: 650 mg Albuterol Sulfate (Ventolin 0.083% Nebulizer Soln -) 1 amp NEB Q4H PRN PRN Reason: SHORT OF BREATH/WHEEZING Last Admin: 08/30/16 10:31 Dose: 1 amp Albuterol/Ipratropium (Duoneb -) 1 amp NEB Q4H PRN PRN Reason: SHORTNESS OF BREATH Last Admin: 09/01/16 02:56 Dose: 1 amp Amitriptyline HCl (Elavil -) 25 mg PO DAILY [facility] Last Admin: 09/02/16 09:13 Dose: 25 mg Atorvastatin Calcium (Lipitor -) 20 mg PO HS [facility] Last Admin: 09/01/16 23:28 Dose: 20 mg Budesonide/Formoterol Fumarate (Symbicort 160/4.5mcg -) 2 puff IH BID [facility] Last Admin: 09/02/16 09:13 Dose: 2 puff Enoxaparin Sodium (Lovenox -) 40 mg SQ DAILY [facility] Last Admin: 09/02/16 09:12 Dose: 40 mg Gabapentin (Neurontin -) 100 mg PO BID [facility] Last Admin: 09/02/16 09:13 Dose: 100 mg Glipizide (Glucotrol -) 2.5 mg PO BIDAC [facility] Last Admin: 09/02/16 06:35 Dose: 2.5 mg Levofloxacin (Levaquin 500 Mg Premixed Ivpb -) 100 mls @ 100 mls/hr IVPB DAILY [facility] Last Admin: 09/02/16 09:13 Dose: 100 mls/hr Insulin Aspart (Novolog Vial Sliding Scale -) 1 vial SQ TIDAC [facility] PRN Reason: Protocol Last Admin: 09/02/16 11:50 Dose: 4 units Levothyroxine Sodium (Synthroid -) 100 mcg PO DAILY@0700 [facility] Last Admin: 09/02/16 06:35 Dose: 100 mcg Metformin HCl (Glucophage -) 500 mg PO BIDAC [facility] Last Admin: 09/02/16 06:35 Dose: 500 mg Nebivolol (Bystolic -) 5 mg PO DAILY [facility] Last Admin: 09/02/16 09:12 Dose: 5 mg Pantoprazole Sodium (Protonix -) 40 mg PO DAILY [facility] Last Admin: 09/02/16 09:12 Dose: 40 mg Prednisone (Deltasone -) 30 mg PO DAILY [facility] Last Admin: 09/02/16 09:13 Dose: 30 mg Ramipril (Altace -) 2.5 mg PO DAILY [facility] Last Admin: 09/02/16 09:12 Dose: 2.5 mg CBC, BMP 09/02/16 06:00 09/01/16 13:30 Problem List - Problems (1) Acute electrocardiogram changes Code(s): R94.31 - ABNORMAL ELECTROCARDIOGRAM [ECG] [EKG] (2) Chest discomfort Code(s): R07.89 - OTHER CHEST PAIN (3) Hypertension Code(s): I10 - ESSENTIAL (PRIMARY) HYPERTENSION Qualifiers: Hypertension type: essential hypertension Qualified Code(s): I10 - Essential (primary) hypertension (4) Shortness of breath Code(s): R06.02 - SHORTNESS OF BREATH (5) Diabetes Code(s): E11.9 - TYPE 2 DIABETES MELLITUS WITHOUT COMPLICATIONS Qualifiers: Diabetes mellitus type: type 2 Diabetes mellitus complication status: without complication Diabetes mellitus usp insulin use: without 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 helper use Qualified Code(s): E11.9 - Type 2 diabetes mellitus without complications Physical Exam Constitutional: Yes: alert and awake Cardiovascular: Yes: Regular Rate and Rhythm Respiratory: Yes: Diminished, Rhonchi- scattered Gastrointestinal: Yes: Normal Bowel Sounds, Soft, Abdomen, Obese. No: Distention, Tenderness Edema: No Assessment and Plan better continue abx cultures -ve so far incentive spirometry taper prednisone if better - anticipate d/c in am Pt in agreement
[2016-09-03] MEDS: ATORVASTATIN CA 20 MG TABLET (FP) PO SCH (22:21)
[2016-09-04] MEDS: metFORMIN HCL 500 MG TABLET (FP) PO SCH (06:51)
[2016-09-04] MEDS: INSULIN SLIDING SCALE (NOVOLOG) 1 VIAL SQ SCH (06:51)
[2016-09-04] MEDS: glipiZIDE 5 MG TABLET (FP) PO SCH (06:51)
[2016-09-04] MEDS: LEVOTHYROXINE NA 100 MCG TABLET (FP) PO SCH (06:51)
--- NOTE | 2016-09-04 09:42 | PN ---
Progress Note, Physician History of Present Illness: Denies chest pain or dyspnea, reports non-productive cough. - Current Medication List Current Medications: Active Medications Acetaminophen (Tylenol -) 650 mg PO Q6H PRN PRN Reason: FEVER OR PAIN Last Admin: 09/01/16 04:00 Dose: 650 mg Amitriptyline HCl (Elavil -) 25 mg PO DAILY [facility] Last Admin: 09/03/16 09:33 Dose: 25 mg Aspirin (Ecotrin -) 81 mg PO DAILY [facility] Last Admin: 09/03/16 10:37 Dose: 81 mg Atorvastatin Calcium (Lipitor -) 20 mg PO HS [facility] Last Admin: 09/03/16 22:21 Dose: 20 mg Budesonide/Formoterol Fumarate (Symbicort 160/4.5mcg -) 2 puff IH BID [facility] Last Admin: 09/03/16 22:20 Dose: 2 puff Enoxaparin Sodium (Lovenox -) 40 mg SQ DAILY [facility] Last Admin: 09/03/16 09:30 Dose: 40 mg Gabapentin (Neurontin -) 100 mg PO BID [facility] Last Admin: 09/03/16 22:21 Dose: 100 mg Glipizide (Glucotrol -) 2.5 mg PO BIDAC [facility] Last Admin: 09/04/16 06:51 Dose: 2.5 mg Levofloxacin (Levaquin 500 Mg Premixed Ivpb -) 100 mls @ 100 mls/hr IVPB DAILY [facility] Last Admin: 09/03/16 09:31 Dose: 100 mls/hr Insulin Aspart (Novolog Vial Sliding Scale -) 1 vial SQ TIDAC [facility] PRN Reason: Protocol Last Admin: 09/04/16 06:51 Dose: 2 units Levothyroxine Sodium (Synthroid -) 100 mcg PO DAILY@0700 [facility] Last Admin: 09/04/16 06:51 Dose: 100 mcg Metformin HCl (Glucophage -) 500 mg PO BIDAC [facility] Last Admin: 09/04/16 06:51 Dose: 500 mg Nebivolol (Bystolic -) 5 mg PO DAILY [facility] Last Admin: 09/03/16 09:31 Dose: 5 mg Pantoprazole Sodium (Protonix -) 40 mg PO DAILY [facility] Last Admin: 09/03/16 09:31 Dose: 40 mg Prednisone (Deltasone -) 20 mg PO DAILY [facility] Ramipril (Altace -) 2.5 mg PO DAILY [facility] Last Admin: 09/03/16 09:31 Dose: 2.5 mg - Objective Vital Signs: Vital Signs Temperature 98.0 F 09/04/16 06:00 Pulse Rate 62 09/04/16 06:00 Respiratory Rate 20 09/04/16 06:00 Blood Pressure 118/58 09/04/16 06:00 O2 Sat by Pulse Oximetry (%) 95 09/03/16 21:00 Constitutional: Yes: No Distress, Calm Neck: Yes: Supple Cardiovascular: Yes: Regular Rate and Rhythm Respiratory: Yes: Regular, Diminished Gastrointestinal: Yes: Normal Bowel Sounds, Soft, Abdomen, Obese Edema: No Labs: CBC, BMP 09/02/16 06:00 09/01/16 13:30 - ....Imaging Chest X-ray: Report Reviewed (RUL infitrate stable) EKG: Report Reviewed (Tele: NSR) Problem List - Problems (1) Hypertension Code(s): I10 - ESSENTIAL (PRIMARY) HYPERTENSION Qualifiers: Hypertension type: essential hypertension Qualified Code(s): I10 - Essential (primary) hypertension (2) Shortness of breath Code(s): R06.02 - SHORTNESS OF BREATH (3) COPD exacerbation Code(s): J44.1 - CHRONIC OBSTRUCTIVE PULMONARY DISEASE W (ACUTE) EXACERBATION (4) Cough Code(s): R05 - COUGH (5) Diabetes Code(s): E11.9 - TYPE 2 DIABETES MELLITUS WITHOUT COMPLICATIONS Qualifiers: Diabetes mellitus type: type 2 Diabetes mellitus complication status: without complication Diabetes mellitus mcc insulin use: without longitudinal float operator use Qualified Code(s): E11.9 - Type 2 diabetes mellitus without complications (6) Hypercholesterolemia Code(s): E78.0 - PURE HYPERCHOLESTEROLEMIA * DO NOT USE * (7) Hypothyroidism Code(s): E03.9 - HYPOTHYROIDISM, UNSPECIFIED Qualifiers: Hypothyroidism type: unspecified Qualified Code(s): E03.9 - Hypothyroidism, unspecified (8) Interstitial lung disease Code(s): J84.9 - INTERSTITIAL PULMONARY DISEASE, UNSPECIFIED (9) Reactive airway disease Code(s): J45.909 - UNSPECIFIED ASTHMA, UNCOMPLICATED Qualifiers: Asthma severity: mild intermittent Assessment/Plan Echocardiography performed 08/11/16 revealed normal LV size and function, mild MR , AR and TR, MAC and AV sclerosis 1. COPD exacerbation with recent history of acute bronchitis and COPD exacerbation, resolving 2. 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 Probable diastolic LV dysfunction with class 0 NYHA classification LV failure 4. HTN 5. DM 6. Hypercholesterolemia 7. Hypothyroidism 8. Peripheral diabetic neuropathy PLAN: 1. Continue Bystolic 5 qd 2. Continue Ramipril 2.5 qd 3. Continue Lipitor 20 qhs 4. Continue ASA 81 qd 5. Continue antibiotics, bronchodilators and steroids taper as per pulmonary service 6. As outlined additional cardiovascular evaluation including MPI study can be done as outpatient once the above noted exacerbation has resolved, d/c planning
--- NOTE | 2016-09-04 10:07 | PN ---
Progress Note, Physician History of Present Illness: PULMONARY ALERT,FEELING BETTER,-SOB,LESS COUGH - Current Medication List Current Medications: Active Medications Acetaminophen (Tylenol -) 650 mg PO Q6H PRN PRN Reason: FEVER OR PAIN Last Admin: 09/01/16 04:00 Dose: 650 mg Amitriptyline HCl (Elavil -) 25 mg PO DAILY [facility] Last Admin: 09/03/16 09:33 Dose: 25 mg Aspirin (Ecotrin -) 81 mg PO DAILY [facility] Last Admin: 09/03/16 10:37 Dose: 81 mg Atorvastatin Calcium (Lipitor -) 20 mg PO HS [facility] Last Admin: 09/03/16 22:21 Dose: 20 mg Budesonide/Formoterol Fumarate (Symbicort 160/4.5mcg -) 2 puff IH BID [facility] Last Admin: 09/03/16 22:20 Dose: 2 puff Enoxaparin Sodium (Lovenox -) 40 mg SQ DAILY [facility] Last Admin: 09/03/16 09:30 Dose: 40 mg Gabapentin (Neurontin -) 100 mg PO BID [facility] Last Admin: 09/03/16 22:21 Dose: 100 mg Glipizide (Glucotrol -) 2.5 mg PO BIDAC [facility] Last Admin: 09/04/16 06:51 Dose: 2.5 mg Levofloxacin (Levaquin 500 Mg Premixed Ivpb -) 100 mls @ 100 mls/hr IVPB DAILY [facility] Last Admin: 09/03/16 09:31 Dose: 100 mls/hr Insulin Aspart (Novolog Vial Sliding Scale -) 1 vial SQ TIDAC [facility] PRN Reason: Protocol Last Admin: 09/04/16 06:51 Dose: 2 units Levothyroxine Sodium (Synthroid -) 100 mcg PO DAILY@0700 [facility] Last Admin: 09/04/16 06:51 Dose: 100 mcg Metformin HCl (Glucophage -) 500 mg PO BIDAC [facility] Last Admin: 09/04/16 06:51 Dose: 500 mg Nebivolol (Bystolic -) 5 mg PO DAILY [facility] Last Admin: 09/03/16 09:31 Dose: 5 mg Pantoprazole Sodium (Protonix -) 40 mg PO DAILY [facility] Last Admin: 09/03/16 09:31 Dose: 40 mg Prednisone (Deltasone -) 20 mg PO DAILY [facility] Ramipril (Altace -) 2.5 mg PO DAILY [facility] Last Admin: 09/03/16 09:31 Dose: 2.5 mg - Objective Vital Signs: Vital Signs Temperature 98.0 F 09/04/16 06:00 Pulse Rate 62 09/04/16 06:00 Respiratory Rate 20 09/04/16 06:00 Blood Pressure 118/58 09/04/16 06:00 O2 Sat by Pulse Oximetry (%) 95 09/03/16 21:00 Constitutional: Yes: Well Nourished, Calm Eyes: Yes: WNL HENT: Yes: WNL, Nasal Congestion Neck: Yes: WNL Cardiovascular: Yes: Regular Rate and Rhythm, S1, S2 Respiratory: Yes: Rales (MURTAZA CRACKLES) Gastrointestinal: Yes: Normal Bowel Sounds, Soft Extremities: Yes: WNL Edema: No Labs: CBC, BMP 09/02/16 06:00 09/01/16 13:30 Problem List - Problems (1) Interstitial lung disease Code(s): J84.9 - INTERSTITIAL PULMONARY DISEASE, UNSPECIFIED Assessment/Plan Problem List - Problems (1) Acute electrocardiogram changes Code(s): R94.31 - ABNORMAL ELECTROCARDIOGRAM [ECG] [EKG] (2) Chest discomfort Code(s): R07.89 - OTHER CHEST PAIN (3) Hypertension Code(s): I10 - ESSENTIAL (PRIMARY) HYPERTENSION Qualifiers: Hypertension type: essential hypertension Qualified Code(s): I10 - Essential (primary) hypertension (4) Influenza A Code(s): J10.1 - FLU DUE TO OTH IDENT INFLUENZA VIRUS W OTH RESP MANIFEST (5) Shortness of breath Code(s): R06.02 - SHORTNESS OF BREATH (6) Cough Code(s): R05 - COUGH (7) Diabetes Code(s): E11.9 - TYPE 2 DIABETES MELLITUS WITHOUT COMPLICATIONS Qualifiers: Diabetes mellitus type: type 2 Diabetes mellitus complication status: without complication Diabetes mellitus 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 insulin use: without 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 use Qualified Code(s): E11.9 - Type 2 diabetes mellitus without complications (8) Diabetic neuropathy Code(s): E11.40 - TYPE 2 DIABETES MELLITUS WITH DIABETIC NEUROPATHY, UNSP Qualifiers: Diabetes mellitus type: type 2 (9) Hypercholesterolemia Code(s): E78.0 - PURE HYPERCHOLESTEROLEMIA * DO NOT USE * (10) Hyperlipidemia associated with type 2 diabetes mellitus Code(s): E11.69 - TYPE 2 DIABETES MELLITUS WITH OTHER SPECIFIED COMPLICATION E78.5 - HYPERLIPIDEMIA, UNSPECIFIED (11) Hypothyroidism Code(s): E03.9 - HYPOTHYROIDISM, UNSPECIFIED Qualifiers: Hypothyroidism type: unspecified Qualified Code(s): E03.9 - Hypothyroidism, unspecified (12) Interstitial lung disease Assessment/Plan: Question of Hypersensitivity Pneumonitis on radiology report. Changes have been present on imaging since at least 2013. Definitive diagnosis can usually only be made by tissue diagnosis. Although difficult to categorize, her CT lacks honeycombing, fibrotic changes, bronchiectasis, etc. After she is medically stable, further workup is warranted. Code(s): J84.9 - INTERSTITIAL PULMONARY DISEASE, UNSPECIFIED (13) Radiculopathy Code(s): M54.10 - RADICULOPATHY, SITE UNSPECIFIED Assessment/Plan PLAN: Symbicort BID O2 as needed No smoking discussed further ILD workup on discharge Prednisone 20mg PFTS outpatient DR VYAS
[2016-09-04] MEDS: LEVOFLOXACIN 500 MG IVPB 100 ML IVPB SCH (10:09)
[2016-09-04 10:10] VITALS: PULSE 66
[2016-09-04] MEDS: PANTOPRAZOLE 40 MG TABLET (FP) PO SCH (10:10)
[2016-09-04] MEDS: NEBIVOLOL 5 MG TABLET (FP) PO SCH (10:10)
[2016-09-04] MEDS: AMITRIPTYLINE HCL 25 MG TABLET (FP) PO SCH (10:10)
[2016-09-04] MEDS: ASPIRIN COATED 81 MG TABLET.EC PO SCH (10:10)
[2016-09-04] MEDS: ENOXAPARIN NA (PORCINE) 40 MG/0.4 ML DISP.SYRIN SQ SCH (10:10)
[2016-09-04] MEDS: GABAPENTIN 100 MG CAPSULE (FP) PO SCH (10:11)
[2016-09-04] MEDS: RAMIPRIL 2.5 MG CAPSULE (FP) PO SCH (10:11)
[2016-09-04] MEDS: BUDESONIDE/FORMETEROL FUMARATE 160/4.5 mcg INHALER IH SCH (10:11)
[2016-09-04 11:07] VITALS: BP 114/73; TEMP 98.2
--- NOTE | 2016-09-04 11:28 | DS ---
Physical Examination Vital Signs: Vital Signs Temperature 98.2 F 09/04/16 09:00 Pulse Rate 66 09/04/16 09:50 Respiratory Rate 20 09/04/16 09:00 Blood Pressure 114/73 09/04/16 09:00 O2 Sat by Pulse Oximetry (%) 96 09/04/16 09:50 Labs: CBC, BMP 09/02/16 06:00 09/01/16 13:30 <Veronica Carroll - Last Filed: 09/04/16 11:27> Vital Signs: Vital Signs Temperature 98.2 F 09/04/16 09:00 Pulse Rate 66 09/04/16 09:50 Respiratory Rate 20 09/04/16 09:00 Blood Pressure 114/73 09/04/16 09:00 O2 Sat by Pulse Oximetry (%) 96 09/04/16 09:50 Findings/Remarks: Patient feels well. No complaints. Denies chest pain. Breathing is stable. Decreased cough Pulmonary follow up noted. Constitutional: Yes: No Distress, Calm Neck: Yes: Supple Cardiovascular: Yes: Regular Rate and Rhythm Respiratory: Yes: Rhonchi (few scattered.) Gastrointestinal: Yes: Soft Edema: No Labs: CBC, BMP 09/02/16 06:00 09/01/16 13:30 <Wilma Castillo - Last Filed: 09/04/16 11:38> Discharge Summary Reason For Visit: SOB,CHEST DISCOMFORT Current Active Problems Acute electrocardiogram changes (Acute) Chest discomfort (Acute) Exogenous obesity (Acute) Hypertension (Acute) Influenza A (Acute) Poor compliance (Acute) Shortness of breath (Acute) Subendocardial ischemia (Acute) - Home Medications Comprehensive Discharge Medication List: Ambulatory Orders Glipizide/Metformin HCl [Metaglip 2.5-250 mg Tablet] 1 each PO BID 09/03/15 Acetaminophen [Tylenol .Regular Strength -] 650 mg PO Q6H PRN #0 tablet Amitriptyline HCl [Elavil -] 25 mg PO DAILY 08/10/16 Levothyroxine Sodium [Levo-T] 100 mcg PO DAILY 08/10/16 Memantine HCl [Namenda Xr] 14 mg PO DAILY 08/10/16 Albuterol 2.5/Ipratropium 0.5 [Duoneb -] 1 amp NEB Q4H PRN #0 amp 08/14/16 Atorvastatin Ca [Lipitor] 20 mg PO HS tablet 08/14/16 Budesonide/Formeterol Fumarate [SYMBICORT 160/4.5mcg -] 1 puff IH BID inhaler 08/14/16 Gabapentin [Neurontin -] 300 mg PO BID capsule 08/14/16 Guaifenesin [Robitussin -] 10 ml PO Q8H PRN #0 cup 08/14/16 Pantoprazole Sodium [Protonix -] 40 mg PO DAILY #30 tablet.ec 08/23/16 Albuterol 0.083% Nebulizer Zehra [Ventolin 0.083% Nebulizer Soln -] 1 amp NEB Q4H PRN #0 amp 09/04/16 Aspirin Coated [Ecotrin -] 81 mg PO DAILY tablet.ec 09/04/16 Insulin Sliding Scale [Novolog Vial Sliding Scale -] 1 vial SQ TIDAC units Nebivolol [Bystolic -] 5 mg PO DAILY #30 tab 09/04/16 Prednisone 10 mg PO ASDIR #20 tablet 09/04/16 Ramipril [Altace] 2.5 mg PO DAILY #30 capsule 09/04/16 <Veronica Carroll - Last Filed: 09/04/16 11:27> Current Active Problems Acute electrocardiogram changes (Acute) Chest discomfort (Acute) Exogenous obesity (Acute) Hypertension (Acute) Influenza A (Acute) Poor compliance (Acute) Shortness of breath (Acute) Subendocardial ischemia (Acute) Hospital Course: Patient admitted for SOB and chest pain. OK ruled out. Patient improved with steroids and Lasix. Pt also treated empirically with abx for fever. Cultures are negative so far. Overall stable for discharge. Pt has home O2. Pt advised to follow up with Pulmonary and cardio as outpatient for further workup. Pt in agreement. Will follow in office in 1 week. Meds prescribed as needed. Plan discussed with nursing staff also. Documentation prepared by Wilma Castillo, acting as a medical technologist microbiology for Veronica Carroll MD. - Home Medications Comprehensive Discharge Medication List: Ambulatory Orders Glipizide/Metformin HCl [Metaglip 2.5-250 mg Tablet] 1 each PO BID 09/03/15 Acetaminophen [Tylenol .Regular Strength -] 650 mg PO Q6H PRN #0 tablet Amitriptyline HCl [Elavil -] 25 mg PO DAILY 08/10/16 Levothyroxine Sodium [Levo-T] 100 mcg PO DAILY 08/10/16 Memantine HCl [Namenda Xr] 14 mg PO DAILY 08/10/16 Albuterol 2.5/Ipratropium 0.5 [Duoneb -] 1 amp NEB Q4H PRN #0 amp 08/14/16 Atorvastatin Ca [Lipitor] 20 mg PO HS tablet 08/14/16 Budesonide/Formeterol Fumarate [SYMBICORT 160/4.5mcg -] 1 puff IH BID inhaler 08/14/16 Gabapentin [Neurontin -] 300 mg PO BID capsule 08/14/16 Guaifenesin [Robitussin -] 10 ml PO Q8H PRN #0 cup 08/14/16 Pantoprazole Sodium [Protonix -] 40 mg PO DAILY #30 tablet.ec 08/23/16 Albuterol 0.083% Nebulizer Zehra [Ventolin 0.083% Nebulizer Soln -] 1 amp NEB Q4H PRN #0 amp 09/04/16 Aspirin Coated [Ecotrin -] 81 mg PO DAILY tablet.ec 09/04/16 Insulin Sliding Scale [Novolog Vial Sliding Scale -] 1 vial SQ TIDAC units Nebivolol [Bystolic -] 5 mg PO DAILY #30 tab 09/04/16 Prednisone 10 mg PO ASDIR #20 tablet 09/04/16 Ramipril [Altace] 2.5 mg PO DAILY #30 capsule 09/04/16 <Wilma Castillo - Last Filed: 09/04/16 11:38> Condition: Stable - Instructions Referrals: Ronit Erazo MD [Primary Care Provider] -
== END 2016-09-04 14:49 | disposition home or self-care (01) | DRG 194 ==
LOC: JER 09:07 → JERBED 11:32 → J4W 20:12 → OBSVTOIN 09-01 13:00
PROVIDERS: ADMIT Internal Medicine; ATTEND Internal Medicine
DX: J10.1 Influenza due to other identified influenza virus with other respiratory manifestations (principal); J84.9 Interstitial pulmonary disease, unspecified; J44.1 Chronic obstructive pulmonary disease with (acute) exacerbation; E78.5 Hyperlipidemia, unspecified; I10 Essential (primary) hypertension; E03.9 Hypothyroidism, unspecified; E78.00 Pure hypercholesterolemia, unspecified; R94.31 Abnormal electrocardiogram [ECG] [EKG]; E11.40 Type 2 diabetes mellitus with diabetic neuropathy, unspecified; R07.89 Other chest pain; M54.10 Radiculopathy, site unspecified; G47.33 Obstructive sleep apnea (adult) (pediatric); E66.8 Other obesity; Z68.32 Body mass index [BMI] 32.0-32.9, adult; Z71.3 Dietary counseling and surveillance; I25.118 Atherosclerotic heart disease of native coronary artery with other forms of angina pectoris; J45.909 Unspecified asthma, uncomplicated; Z85.3 Personal history of malignant neoplasm of breast; Z91.19 Patient's noncompliance with other medical treatment and regimen
CPT/HCPCS: 36415; 36600; 71010-TC; 71020-TC; 80048; 80053; 81003; 82375; 82550; 82803; 83050; 83735; 83880; 84484; 85025; 87040; 87086; 87254; 87804; 93005; 93010; 94640; 99285-25; G0378

== ENCOUNTER 2017-04-15 08:07 | Emergency (ER) | payer OTHER ==
[2017-04-15 08:22] VITALS: BMI 34.6
--- NOTE | 2017-04-15 09:08 | PDOC ---
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 Pt denies fever or chills no vomiting or diarrhea, lives alone. Pt has no dizzyness, c/o pain in right eye with no vision changes. PMD: Ronit Stinson . PMHX: HTN, DM, high cholesterol, sleep apnea , left breast cancer with mastectomy. Pt denies chest pain , is home O2 dependent. Timing/Duration: 24 hours Severity: mild Associated Symptoms: reports: cough, loss of appetite, malaise. denies: chest pain Past History - Past Medical History Allergies/Adverse Reactions: Allergies Allergy/AdvReac Type Severity Reaction Status Date / Time No Known Allergies Allergy Verified 04/15/17 12:40 Home Medications: Ambulatory Orders Glipizide/Metformin HCl [Metaglip 2.5-250 mg Tablet] 1 each PO BID 09/03/15 Acetaminophen [Tylenol .Regular Strength -] 650 mg PO Q6H PRN #0 tablet Amitriptyline HCl [Elavil -] 25 mg PO DAILY 08/10/16 Levothyroxine Sodium [Levo-T] 100 mcg PO DAILY 08/10/16 Memantine HCl [Namenda Xr] 14 mg PO DAILY 08/10/16 Albuterol 2.5/Ipratropium 0.5 [Duoneb -] 1 amp NEB Q4H PRN #0 amp 08/14/16 Atorvastatin Ca [Lipitor] 20 mg PO HS tablet 08/14/16 Budesonide/Formeterol Fumarate [SYMBICORT 160/4.5mcg -] 1 puff IH BID inhaler 08/14/16 Gabapentin [Neurontin -] 300 mg PO BID capsule 08/14/16 Guaifenesin [Robitussin -] 10 ml PO Q8H PRN #0 cup 08/14/16 Pantoprazole Sodium [Protonix -] 40 mg PO DAILY #30 tablet.ec 08/23/16 Albuterol 0.083% Nebulizer Zehra [Ventolin 0.083% Nebulizer Soln -] 1 amp NEB Q4H PRN #0 amp 09/04/16 Aspirin Coated [Ecotrin -] 81 mg PO DAILY tablet.ec 09/04/16 Insulin Sliding Scale [Novolog Vial Sliding Scale -] 1 vial SQ TIDAC units Nebivolol [Bystolic -] 5 mg PO DAILY #30 tab 09/04/16 Prednisone 10 mg PO ASDIR #20 tablet 09/04/16 Ramipril [Altace] 2.5 mg PO DAILY #30 capsule 09/04/16 Cancer: Yes (LEFT BREAST) Diabetes: Yes HTN: Yes Hypercholesterolemia: Yes - Surgical History Abdominal Surgery: No - Immunization History Immunization Up to Date: Yes - Suicide/Smoking/Psychosocial Hx Smoking Status: No Smoking History: Never smoked Have you smoked in the past 12 months: No Number of Cigarettes Smoked Daily: 0 Cigars Per Day: 0 Information on smoking cessation initiated: No Hx Alcohol Use: No Drug/Substance Use Hx: No Substance Use Type: None Hx Substance Use Treatment: No Review of Systems - Review of Systems Able to Perform ROS?: Yes Is the patient limited Turkish proficient: Yes Constitutional: Yes: Malaise HEENTM: Yes: Eye Pain (right ) Respiratory: Yes: Cough Cardiac (ROS): No: Chest Pain *Physical Exam - Vital Signs Last Vital Signs Temp Pulse Resp BP Pulse Ox 98.4 F 71 20 150/83 91 L 04/15/17 08:20 04/15/17 08:20 04/15/17 08:20 04/15/17 08:20 04/15/17 08:20 - Physical Exam General Appearance: Yes: Nourished, Appropriately Dressed HEENT: positive: EOMI, LEI, Normal ENT Inspection, TMs Normal, Pharynx Normal, Other (right eye with ANU outer third lateral sclera, clear drainage, tearing , no fb SINCERE EOMI without pain, no palable swelling or tenderness to the upper eyelid. lid margins with mild edema) Neck: positive: Supple. negative: Tender, Rigid Respiratory/Chest: positive: Rhonchi. negative: Chest Tender, Respiratory Distress Cardiovascular: positive: Regular Rhythm, Regular Rate Gastrointestinal/Abdominal: positive: Normal Bowel Sounds, Soft Musculoskeletal: positive: Normal Inspection Extremity: positive: Normal Capillary Refill, Normal Inspection, Normal Range of Motion Integumentary: positive: Normal Color, Dry, Warm. negative: Rash, Swelling Neurologic: positive: Fully Oriented, Alert, Normal Mood/Affect, Normal Response , Motor Strength 5/5 Procedures - Eye Procedure Alcaine Drops Administered: Yes Antibiotic Oinment/Drps Admin: right eye (erythromycin) Progress: 04/15/17 12:54 fluroscein uptake to the lateral cornea right eye Heart Score/ECG Review - ECG Intrepretation Rhythm: Regular Rhythm (EKG signed by ER attending ) ED Treatment Course - LABORATORY CBC & Chemistry Diagram: 04/15/17 09:20 04/15/17 09:20 - RADIOLOGY Radiology Studies Ordered: Category Date Time Status HEAD CT WITHOUT CONTRAST [CT] Stat CT Scan 04/15/17 08:58 Ordered CHEST X-RAY PORTABLE* [RAD] Stat Radiology 04/15/17 08:58 Ordered - Consult/PCP Time Called: 16:30 Case discussed with personal care physician: Felicity Oneil Reason/Comments: case discussed with pt's cable braider covering for Dr. Clark Medical Decision Making - Medical Decision Making 04/15/17 09:14 cc: right eye pain with redness, clear drainage tearing , no yellow or green discharge. denies vision changes no diplopia, SINCERE EOMI without pain no palpable orbital tenderness pt states "I just don't feel well" c/o cough for one week generalsied malaise will check labs, CXR, EKG Ct head, UA, troponin pt seen and examine by in ER 04/15/17 10:13 04/15/17 10:31 case discussed with case discussed, would like repeat troponin if negative dc, pt has history of troponin at 0.09 . Pt can follow with cable braider tomorrow morning . Ct negative, CXR negative, labs WNL no elevated WBC. 04/15/17 10:50 04/15/17 11:50 erythromycin eye ointment three times a day for 5 days to right eye 04/15/17 12:55 04/15/17 16:06 pt comfortable has no complaints. 04/15/17 16:09 erythromycin instilled to lower lid right eye 04/15/17 16:37 case discussed with Pt's cable braider states they will see her in the office tomorrow. I have discussed the labs with the pt and he is aware I spoke with Dr. Stinson as well. Pt is aware and agrees with plan. *DC/Admit/Observation/Transfer Diagnosis at time of Disposition: Malaise and fatigue Corneal abrasion, right Qualifiers: Encounter type: initial encounter Qualified Code(s): S05.01XA - Injury of conjunctiva and corneal abrasion without foreign body, right eye, initial encounter - Discharge Dispostion Disposition: HOME Condition at time of disposition: Good - Referrals Referrals: Jameson Tinoco MD [Staff Physician] - Ronit Erazo MD [Primary Care Provider] - Antione Espino MD [Staff Physician] - - Patient Instructions Additional Instructions: use the eye ointment three times a day to the lower lid of the right eye for 5 days please follow with the eye doctor Dr. Espino in 1-2 days please follow with your cable braider TOMORROW for follow up drink pleanty of water to stay well hydrated Return if any worsening symptoms
[2017-04-15] MEDS ORDERED: ALBUTEROL SO4 2.5/IPRATROPIUM 0.5 INH SOL 3 ML VIAL.NEB. NEB ONE ×3 (09:16→09:39)
[2017-04-15] MEDS ORDERED: TETRACAINE 0.5% HCL 0.6ML DROPPER.BOTTLE OD STA (09:18)
[2017-04-15 09:24] LABS: BASOPHIL 1.2 % (0-2.0); EOSINOPHIL 4.5 % (0-4.5); MCH 29.3 pg (25.7-33.7); MCHC 33.3 g/dl (32.0-36.0); MEAN CELL VOLUME 87.9 fl (80-96); MEAN PLT VOLUME 9.3 fl (7.5-11.1); NEUTROPHILS 64.3 % (42.8-82.8); PLATELET COUNT 204 K/MM3 (134-434); RDW 14.4 % (11.6-15.6); WHITE BLOOD COUNT 7.5 K/mm3 (4.0-10.0)
[2017-04-15 09:32] LABS: URINE APPEARANCE SLCLOUDY; URINE BILIRUBIN NEGATIVE (NEGATIVE); URINE BLOOD NEGATIVE (NEGATIVE); URINE COLOR LTYELLOW; URINE GLUCOSE (UA) NEGATIVE (NEGATIVE); URINE KETONE TRACE (NEGATIVE); URINE LEUK ESTERASE NEGATIVE (NEGATIVE); URINE NITRITE NEGATIVE (NEGATIVE); URINE PROTEIN NEGATIVE (NEGATIVE)
[2017-04-15] MEDS ORDERED: TETRACAINE 0.5% OPHTH SOLN 2 ML BOTTLE ONE (09:38)
[2017-04-15 09:49] LABS: ALBUMIN 3.6 g/dl (3.4-5.0); ANION GAP 8 (8-16); BILIRUBIN,TOTAL 0.5 mg/dL (0.2-1.0); CALCIUM 8.9 mg/dL (8.5-10.1); CO2 28 mmol/L (21-32); CREATININE 0.6 mg/dL (0.55-1.02); GLUCOSE,RANDOM 185 mg/dL (74-106); SGOT/AST 17 U/L (15-37); SGPT/ALT 21 U/L (12-78); TOT PROT 7.5 g/dl (6.4-8.2)
[2017-04-15 09:50] LABS: ALK PHOS 79 U/L (45-117)
[2017-04-15 09:51] LABS: TROPONIN I 0.06 ng/ml (0.00-0.05)
[2017-04-15] MEDS ORDERED: ERYTHROMYCIN 0.5% OPHTHALMIC OINTMENT 3.5 GM TUBE OD ONE (11:18)
[2017-04-15 11:23] LABS: ERYTHROCYTE SEDIMENTATION RATE 22 mm/hr (0-30)
[2017-04-15] MEDS ORDERED: ERYTHROMYCIN 0.5% OPHTHALMIC OINTMENT 3.5 GM TUBE ONE (11:28)
[2017-04-15] MEDS ORDERED: FLUORESCEIN NA 1 EA STRIP ONE (12:38)
--- NOTE | 2017-04-15 15:55 | PDOC ---
*Physical Exam - Vital Signs Last Vital Signs Temp Pulse Resp BP Pulse Ox 98.4 F 58 L 17 120/71 98 04/15/17 14:35 04/15/17 14:35 04/15/17 14:35 04/15/17 14:35 04/15/17 14:35 - Physical Exam General Appearance: Yes: Nourished, Moderate Distress HEENT: positive: Other (conjunctival injected bilaterally. perrl. eomi) Neck: positive: Trachea midline Respiratory/Chest: positive: Lungs Clear, Normal Breath Sounds Cardiovascular: positive: Regular Rhythm, Regular Rate, S1, S2 Gastrointestinal/Abdominal: positive: Normal Bowel Sounds, Flat, Soft. negative : Tender Musculoskeletal: positive: Normal Inspection. negative: CVA Tenderness Extremity: positive: Normal Capillary Refill, Other (bilat hand mild swelling near mcp joints, feet bilat mild nonpitting edema. ). negative: Normal Inspection Integumentary: positive: Normal Color, Dry, Warm Heart Score/ECG Review #1 ECG reviewed & interpreted by me at: 09:40 General ECG Interpretation: Sinus Rhythm, Normal Rate (66), Normal Intervals, No acute ischemic changes (TWave flat I, inverted AVL) Compared to previous ECG there are: No significant change (comparison 09/01/16) - P and CO Atrial Enlargement: Left - QRS Widened: RBBB ED Treatment Course - LABORATORY CBC & Chemistry Diagram: 04/15/17 09:20 04/15/17 09:20 - ADDITIONAL ORDERS Additional order review: Laboratory Results 04/15/17 04/15/17 04/15/17 09:54 09:24 09:20 Sodium Potassium Chloride Carbon Dioxide Anion Gap BUN Creatinine Creat Clearance w eGFR POC Glucometer [id number] Random Glucose Calcium Total Bilirubin AST ALT Alkaline Phosphatase Creatine Kinase 138 Troponin I 0.06 H Total Protein Albumin Urine Color Ltyellow Urine Appearance Slcloudy Urine pH 7.0 Ur Specific [place] 1.020 Urine Protein Negative Urine Glucose (UA) Negative Urine Ketones Trace H Urine Blood Negative Urine Nitrite Negative Urine Bilirubin Negative Urine Urobilinogen 2.0 H 04/15/17 09:20 Sodium 140 Potassium 3.8 Chloride 104 Carbon Dioxide 28 Anion Gap 8 BUN 22 H Creatinine 0.6 D Creat Clearance w eGFR > 60 POC Glucometer Random Glucose 185 H D Calcium 8.9 Total Bilirubin 0.5 D AST 17 D ALT 21 Alkaline Phosphatase 79 Creatine Kinase Troponin I Total Protein 7.5 D Albumin 3.6 D Urine Color Urine Appearance Urine pH Ur Specific [place] Urine Protein Urine Glucose (UA) Urine Ketones Urine Blood Urine Nitrite Urine Bilirubin Urine Urobilinogen 04/15/17 04/15/17 09:54 09:20 RBC 4.95 MCV 87.9 MCHC 33.3 RDW 14.4 D MPV 9.3 Neutrophils % 64.3 D Lymphocytes % 23.4 D Monocytes % 6.6 D Eosinophils % 4.5 D Basophils % 1.2 POC Glucometer [phone] - Medications Given in the ED: ED Medications Discontinued Medications Generic Name Dose Route Start Last Admin Trade Name Freq PRN Reason Stop Dose Admin Albuterol/Ipratropium 1 amp 04/15/17 09:16 04/15/17 09:49 Duoneb - NEB 04/15/17 09:17 1 amp ONCE ONE Administration Erythromycin 1 applic 04/15/17 11:18 04/15/17 11:32 Erythromycin 0.5% Eye Ointment OD 04/15/17 11:19 1 dose ONCE ONE Administration Tetracaine HCl 1 drop 04/15/17 09:18 04/15/17 09:50 Tetravisc 0.5% Eye Drops - OD 04/15/17 09:19 1 drop ONCE STA Administration Medical Decision Making - Medical Decision Making 04/15/17 15:51 71 yo F with h/o HTN, copd, on home Oxygen, CAD here wtih c/o bilat hand swelling, feet swelling and c/o eye redness and pain. denies change to her vision. no cp no sob. pt is on home oxygen, but came by taxi today without it. no f/c no n/f no feet pain. no known h/o RA. no other complaints. no eye trauma, or fb, does not wear contacts, glassess only. differential vasculitis, corneal abrasion/ ulceration, arthritis, renal or liver failure, plan ekg labs cxr stain eyes r/o abrasion. pt seen and examined in conjunction [facility] DELMY nogueira, agree with plan and assessment 04/15/17 15:55 04/15/17 16:10 case d/w pcp dr erazo, requesting repeat troponin. *DC/Admit/Observation/Transfer Diagnosis at time of Disposition: Corneal abrasion, right Qualifiers: Encounter type: initial encounter Qualified Code(s): S05.01XA - Injury of conjunctiva and corneal abrasion without foreign body, right eye, initial encounter - Referrals Referrals: Ronit Erazo MD [Primary Care Provider] - - Patient Instructions Additional Instructions: use the eye ointment three times a day to the lower lid of the right eye for 5 days please follow with the eye doctor Dr. Espino in 1-2 days - Post Discharge Activity
[2017-04-15 16:17] VITALS: BP 138/69; PULSE 59; TEMP 98.8
--- NOTE | 2017-04-16 11:22 | EKG ---
Test Reason : Blood Pressure : / mmHG Vent. Rate : 066 BPM Atrial Rate : 066 BPM P-R Int : 154 ms QRS Dur : 120 ms QT Int : 424 ms P-R-T Axes : 028 -63 079 degrees QTc Int : 444 ms NORMAL SINUS RHYTHM RIGHT BUNDLE BRANCH BLOCK LEFT ANTERIOR FASCICULAR BLOCK BIFASCICULAR BLOCK ABNORMAL ECG WHEN COMPARED WITH ECG OF 01-SEP-2016 02:34, RIGHT BUNDLE BRANCH BLOCK IS NOW PRESENT Confirmed by KINGSLEY ZAMORA MD ([id number]) on 04/16/2017 11:22:13 AM Referred By: Confirmed By:KINGSLEY ZAMORA MD
== END 2017-04-15 17:25 | disposition home or self-care (01) ==
LOC: JER 08:07
PROC: 3E0F7GC Introduction of Other Therapeutic Substance into Respiratory Tract, Via Natural or Artificial Opening (ICD-10-PCS; principal; 2017-04-15)
DX: R53.83 Other fatigue (principal); S05.01XA Injury of conjunctiva and corneal abrasion without foreign body, right eye, initial encounter; I10 Essential (primary) hypertension; E11.9 Type 2 diabetes mellitus without complications; Z79.4 Long term (current) use of insulin; Z79.84 Long term (current) use of oral hypoglycemic drugs; E78.00 Pure hypercholesterolemia, unspecified; Z85.3 Personal history of malignant neoplasm of breast; Z90.12 Acquired absence of left breast and nipple
CPT/HCPCS: 36415; 70450-TC; 71010-TC; 80053; 81003; 84484; 85025; 85651; 93005; 93010; 94640; 99285-25

== ENCOUNTER 2017-06-19 10:00 | Day surgery (SDC) | payer OTHER ==
[2017-06-19 11:09] VITALS: BMI 36.6
[2017-06-19] MEDS ORDERED: PROPOFOL 20 ML ONE ×2 (13:07)
[2017-06-19 13:51] VITALS: TEMP 97.6
[2017-06-19 14:19] VITALS: PULSE 66
[2017-06-19 14:33] VITALS: BP 138/69
== END 2017-06-19 15:03 | disposition home or self-care (01) ==
LOC: JASU-ENDO 10:00
PROVIDERS: ATTEND Internal Medicine Gastroenterology
PROC: 0DBH8ZX Excision of Cecum, Via Natural or Artificial Opening Endoscopic, Diagnostic (ICD-10-PCS; principal; 2017-06-19 11:00)
DX: D12.0 Benign neoplasm of cecum (principal); K57.30 Diverticulosis of large intestine without perforation or abscess without bleeding; K63.89 Other specified diseases of intestine; K62.5 Hemorrhage of anus and rectum
CPT/HCPCS: 88305-TC

== ENCOUNTER 2017-06-26 10:26 | Day surgery (SDC) | payer OTHER ==
[2017-06-26 11:16] VITALS: BMI 36.6
[2017-06-26 12:35] VITALS: TEMP 98
[2017-06-26 13:00] VITALS: PULSE 60
[2017-06-26 13:41] VITALS: BP 135/65
--- NOTE | 2017-06-28 09:10 | PATH ---
Surgical Pathology Report Patient Name: LYDIA GLOVER [facility] Rec. #: [id number] /Age/Gender: 1945 (Age: 71) / F Account: [id number] Location: ASU-ENDOSCOPY Taken: 06/26/2017 Received: 06/26/2017 Reported: 06/28/2017 Physicians: Tramaine Henderson M.D. Specimen(s) Received A: BX POLYP DISTAL ANTRUM B: BX POLYP PROXIMAL BODY C: BX ATROPHIC BODY Clinical History Preoperative diagnosis: Early satiety, weight loss Postoperative diagnosis: Gastric polyp, atrophic gastritis Final Diagnosis A. STOMACH, DISTAL ANTRUM, POLYP, BIOPSY: POLYPOID GASTRIC ANTRAL MUCOSA WITH MODERATE CHRONIC ACTIVE GASTRITIS. IMMUNOHISTOCHEMICAL STAIN FOR H. PYLORI IS NEGATIVE. B. STOMACH, PROXIMAL BODY, POLYP, BIOPSY: POLYPOID GASTRIC ANTRAL MUCOSA WITH MODERATE CHRONIC AND FOCAL ACTIVE GASTRITIS. IMMUNOHISTOCHEMICAL STAIN FOR H. PYLORI IS NEGATIVE. C. STOMACH, ATROPHIC BODY, BIOPSY: GASTRIC BODY MUCOSA WITH SEVERE CHRONIC GASTRITIS. IMMUNOHISTOCHEMICAL STAIN FOR H. PYLORI IS NEGATIVE. Electronically Signed Fabienne Colon M.D. Addendum Reported: 06/28/2017 Addendum Diagnosis Part C: Intestinal metaplasia present. No dysplasia identified. Fabienne Colon M.D. Gross Description A. Received in formalin, labeled "biopsy polyp distal antrum" is a johnson, irregular portion of soft tissue measuring 0.4 cm. in greatest dimension. The specimen is submitted in toto in one cassette. B. Received in formalin, labeled "biopsy polyp proximal body" are 5 johnson, irregular portions of soft tissue ranging from 0.1-0.4 cm. in greatest dimension. The specimens are submitted in toto in one cassette. C. Received in formalin, labeled "biopsy atrophic body" is a johnson, irregular portion of soft tissue measuring 0.3 cm. in greatest dimension. The specimen is submitted in toto in one cassette. 06/26/201706/26/2017
== END 2017-06-26 14:37 | disposition home or self-care (01) ==
LOC: JASU-ENDO 10:26
PROVIDERS: ATTEND Internal Medicine Gastroenterology
PROC: 0DB68ZX Excision of Stomach, Via Natural or Artificial Opening Endoscopic, Diagnostic (ICD-10-PCS; principal; 2017-06-26 11:00)
DX: K29.40 Chronic atrophic gastritis without bleeding (principal); K31.7 Polyp of stomach and duodenum; R68.81 Early satiety; R10.13 Epigastric pain
CPT/HCPCS: 88305-TC; 88342-TC

== ENCOUNTER 2017-07-18 17:42 | Emergency (ER) | payer OTHER ==
--- NOTE | 2017-07-18 18:25 | PDOC ---
Rapid Medical Evaluation Medical Evaluation: Allergies Allergy/AdvReac Type Severity Reaction Status Date / Time No Known Allergies Allergy Verified 07/18/17 18:23 07/18/17 18:24 I have performed a brief in-person evaluation of this patient. The patient presents with a chief complaint of: Vertigo w/ tinnitis and blurry vision today. H/o DM, HTN, lung nodules, COPD on oxygen Pertinent physical exam findings:Sating 90% on RA (baseline per pt, oxygen dependent), exam otherwise unremarkable I have ordered the following:ekg/labs The patient will proceed to the ED for further evaluation.
[2017-07-18 18:28] VITALS: BP 112/54; PULSE 61; TEMP 98.8; BMI 36.8
[2017-07-18 19:03] LABS: BASO # 0.1 #; BASO % 0.9 % (0-2.0); EOS # 0.5 #; LYMPH # 1.7; MCH 28.9 pg (25.7-33.7); MCHC 32.9 g/dl (32.0-36.0); MEAN CELL VOLUME 87.9 fl (80-96); MEAN PLT VOLUME 9.8 fl (7.5-11.1); MONO # 0.7 #; NEUT # 6.5 #; NEUT % 68.9 % (42.8-82.8); PLATELET COUNT 204 K/MM3 (134-434); RDW 13.7 % (11.6-15.6); WHITE BLOOD COUNT 9.4 K/mm3 (4.0-10.0)
[2017-07-18 19:07] LABS: URINE APPEARANCE CLOUDY; URINE BILIRUBIN NEGATIVE (NEGATIVE); URINE BLOOD 1+ (NEGATIVE); URINE COLOR YELLOW; URINE GLUCOSE (UA) NEGATIVE (NEGATIVE); URINE KETONE NEGATIVE (NEGATIVE); URINE NITRITE NEGATIVE (NEGATIVE); URINE PROTEIN NEGATIVE (NEGATIVE); URINE UROBILINOGEN NEGATIVE mg/dL (0.2-1.0)
[2017-07-18 19:24] LABS: URINE LEUK ESTERASE 3+ (NEGATIVE)
[2017-07-18 19:49] LABS: ALBUMIN 3.5 g/dl (3.4-5.0); ANION GAP 7 (8-16); BILIRUBIN,TOTAL 0.8 mg/dL (0.2-1.0); CALCIUM 8.6 mg/dL (8.5-10.1); CO2 29 mmol/L (21-32); CPK 120 IU/L (26-192); CREATININE 0.9 mg/dL (0.55-1.02); GLUCOSE,RANDOM 109 mg/dL (74-106); SGOT/AST 15 U/L (15-37); SGPT/ALT 19 U/L (12-78); TOT PROT 7.6 g/dl (6.4-8.2)
[2017-07-18 19:51] LABS: ALK PHOS 94 U/L (45-117); TROPONIN I 0.06 ng/ml (0.00-0.05)
--- NOTE | 2017-07-18 20:52 | PDOC ---
Attending Attestation - Resident Resident Name: Jonathan Wilcox - ED Attending Attestation I have performed the following: I have examined & evaluated the patient, The case was reviewed & discussed with the resident, I agree w/resident's findings & plan, Exceptions are as noted - Physicial Exam PE: 07/18/17 20:51 *Physical Exam General Appearance: Yes: Appropriately Dressed. No: Apparent Distress, Intoxicated HEENT: positive: EOMI, LEI, Normal ENT Inspection, Normal Voice, TMs Normal, Pharynx Normal. negative: Pale Conjunctivae, Photophobia, Scleral Icterus (R), Scleral Icterus (L) Neck: positive: Trachea midline, Normal Thyroid, Supple. negative: Tender, Rigid, Carotid bruit, Stridor, Lymphadenopathy (R), Lymphadenopathy (L), Thyromegaly Respiratory/Chest: positive: Lungs Clear, Normal Breath Sounds. negative: Chest Tender, Respiratory Distress, Accessory Muscle Use, Labored Respiration, RES, Crackles, Rales, Rhonchi, Stridor, Wheezing, Dullness Cardiovascular: positive: Regular Rhythm, Regular Rate, S1, S2. negative: Edema , JVD, Murmur, Bradycardia, Tachycardia Vascular Pulses: Dorsalis-Pedis (R): 2+, Doralis-Pedis (L): 2+ Gastrointestinal/Abdominal: positive: Normal Bowel Sounds, Flat, Soft. negative : Tender, Organomegaly, Pulsatile Mass, Increased Bowel Sounds, Decreased BS, Distended, Guarding, Rebound, Hernia, Hepatomegaly, Spleenomegaly Lymphatic: negative: Adenopathy, Tenderness Musculoskeletal: positive: Normal Inspection. negative: CVA Tenderness, Decreased Range of Motion Extremity: positive: Normal Capillary Refill, Normal Inspection, Normal Range of Motion, Pelvis Stable. negative: Tender, Pedal Edema, Swelling, Erythema Integumentary: positive: Normal Color, Dry, Warm. negative: Cyanotic, Erythema , Jaundice, Rash Neurologic: positive: administrative receptionist II-XII NML intact, Fully Oriented, Alert, Normal Mood/ Affect, Motor Strength 5/5. negative: EOM Palsy, Facial Droop, Sensory Deficit
[2017-07-18] MEDS ORDERED: MECLIZINE HCL 25 MG TABLET (FP) PO ONE (21:41)
--- NOTE | 2017-07-18 21:41 | PDOC ---
Attending Attestation - HPI HPI: 07/18/17 21:41 71 y.o female with significant PMHx of DM, COPD on O2, HTN, HLD, hypothyroidism , and left breast cancer s/p mastectomy, who presents today complaining of dizziness described as "the room was spinning" that started this morning after feeling a pop and experiencing tinnitus in her right ear. <Pina Lewis - Last Filed: 07/18/17 21:41> - Resident Resident Name: Jonathan Wilcox - ED Attending Attestation I have performed the following: I have examined & evaluated the patient, The case was reviewed & discussed with the resident, I agree w/resident's findings & plan, Exceptions are as noted - Physicial Exam PE: 07/18/17 23:29 *Physical Exam General Appearance: Yes: Appropriately Dressed. No: Apparent Distress, Intoxicated HEENT: positive: EOMI, LEI, Normal ENT Inspection, Normal Voice, TMs Normal, Pharynx Normal. negative: Pale Conjunctivae, Photophobia, Scleral Icterus (R), Scleral Icterus (L) Neck: positive: Trachea midline, Normal Thyroid, Supple. negative: Tender, Rigid, Carotid bruit, Stridor, Lymphadenopathy (R), Lymphadenopathy (L), Thyromegaly Respiratory/Chest: positive: Lungs Clear, Normal Breath Sounds. negative: Chest Tender, Respiratory Distress, Accessory Muscle Use, Labored Respiration, RES, Crackles, Rales, Rhonchi, Stridor, Wheezing, Dullness Cardiovascular: positive: Regular Rhythm, Regular Rate, S1, S2. negative: Edema , JVD, Murmur, Bradycardia, Tachycardia Vascular Pulses: Dorsalis-Pedis (R): 2+, Doralis-Pedis (L): 2+ Gastrointestinal/Abdominal: positive: Normal Bowel Sounds, Flat, Soft. negative : Tender, Organomegaly, Pulsatile Mass, Increased Bowel Sounds, Decreased BS, Distended, Guarding, Rebound, Hernia, Hepatomegaly, Spleenomegaly Lymphatic: negative: Adenopathy, Tenderness Musculoskeletal: positive: Normal Inspection. negative: CVA Tenderness, Decreased Range of Motion Extremity: positive: Normal Capillary Refill, Normal Inspection, Normal Range of Motion, Pelvis Stable. negative: Tender, Pedal Edema, Swelling, Erythema Integumentary: positive: Normal Color, Dry, Warm. negative: Cyanotic, Erythema , Jaundice, Rash Neurologic: positive: multifocal lens assembler II-XII NML intact, Fully Oriented, Alert, Normal Mood/ Affect, Motor Strength 5/5. negative: EOM Palsy, Facial Droop, Sensory Deficit - Medical Decision Making 07/19/17 19:36 pt treated and released. <Thierry Dash - Last Filed: 07/19/17 19:36>
--- NOTE | 2017-07-18 21:42 | PDOC ---
History of Present Illness - General Chief Complaint: Lightheaded Stated Complaint: FATIGUE Time Seen by Provider: 07/18/17 20:50 - History of Present Illness Initial Comments: 07/18/17 22:09 The patient is a 71 year old female with a history of HTN, HLD, COPD who presents for evaluation of dizziness. The patient is accompanied by her daughter who assists in providing the history. The daughter reports that the patient woke up today with a sensation of the room spinning around herself and a sensation of nausea. She states that the patient then took a nap with resolution of her symptoms upon waking up, however the patient had never experienced such symptoms in the past prompting their presentation to the ED today for evaluation. She denies any fevers, chills, headache, visual changes, SOB, chest pain, abdominal pain, or changes with urination or bowel movements. Past History - Past Medical History Allergies/Adverse Reactions: Allergies Allergy/AdvReac Type Severity Reaction Status Date / Time No Known Allergies Allergy Verified 07/18/17 18:24 Home Medications: Ambulatory Orders Levothyroxine Sodium [Levo-T] 100 mcg PO DAILY 08/10/16 Memantine HCl [Namenda Xr] 14 mg PO DAILY 08/10/16 Albuterol 2.5/Ipratropium 0.5 [Duoneb -] 1 amp NEB Q4H PRN #0 amp 08/14/16 Gabapentin [Neurontin -] 300 mg PO BID capsule 08/14/16 Albuterol 0.083% Nebulizer Zehra [Ventolin 0.083% Nebulizer Soln -] 1 amp NEB Q4H PRN #0 amp 09/04/16 Aspirin Coated [Ecotrin -] 81 mg PO DAILY tablet.ec 09/04/16 Ramipril [Altace] 2.5 mg PO DAILY #30 capsule 09/04/16 Benzonatate 200 mg PO DAILY 06/18/17 Carvedilol 6.25 mg PO BID 06/18/17 Cholecalciferol (Vitamin D3) [Vitamin D3 -] 1,000 unit PO DAILY 06/18/17 Olopatadine HCl [Pazeo] 2.5 drop OP DAILY 06/18/17 Simvastatin 40 mg PO DAILY 06/18/17 Sitagliptin Phosphate [Januvia] 50 mg PO DAILY 06/18/17 Glipizide/Metformin HCl [Glipizide-Metformin 5-500 mg] 1 each PO BID 06/19/17 Asthma: Yes Cancer: Yes (LEFT BREAST) COPD: Yes (USES OXYGEN PRN) Diabetes: Yes (NIDDM) HTN: Yes Hypercholesterolemia: Yes Thyroid Disease: Yes - Surgical History Abdominal Surgery: No - Immunization History Immunization Up to Date: Yes - Suicide/Smoking/Psychosocial Hx Smoking Status: No Smoking History: Never smoked Have you smoked in the past 12 months: No Number of Cigarettes Smoked Daily: 0 Cigars Per Day: 0 Information on smoking cessation initiated: No Hx Alcohol Use: No Drug/Substance Use Hx: No Substance Use Type: None Hx Substance Use Treatment: No Review of Systems - Review of Systems Comments:: 07/18/17 22:13 Constitutional: No fevers, chills, fatigue, malaise HEENT: No Rhinorrhea, nasal congestion, visual changes Cardiovascular: No chest pain, syncope, palpitations, lightheadedness Respiratory: No Cough, SOB, Hemoptysis, Gastrointestinal: Nausea. No Abdominal pain, Vomiting, Constipation, Diarrhea, Melena Genitourinary: No Dysuria, Frequency, Urgency, Hesitancy, Hematuria, Flank pain Musculoskeletal: No Myalgia, arthralgia Skin: No rashes, bruising, pallor Neurologic: Dizziness. No Headache, Numbness, Weakness, or Tingling Psychiatric: No Hallucinations. No SI or HI *Physical Exam - Vital Signs Last Vital Signs Temp Pulse Resp BP Pulse Ox 98.8 F 61 17 112/54 90 L 07/18/17 18:25 07/18/17 18:25 07/18/17 18:25 07/18/17 18:25 07/18/17 18:25 - Physical Exam Comments: 07/18/17 22:14 General Appearance: Nourished. No Apparent Distress HEENT: EOMI, LEI. No Pharyngeal Erythema, Tonsillar Exudate, Tonsillar Erythema Neck: No Cervical Lymphadenopathy Respiratory/Chest: Lungs Clear, Normal Breath Sounds. No Crackles, Rales, Rhonchi, Wheezing Cardiovascular: Regular Rhythm, Regular Rate. 2/6 systolic murmur noted on exam. No Gallops, Rubs Gastrointestinal/Abdominal: Normal Bowel Sounds, Soft. No Guarding, Rebound, Tenderness Musculoskeletal: No CVA Tenderness Extremity: Normal Capillary Refill Integumentary: Normal Color, Dry, Warm Neurologic: search engine optimization specialist II-XII NML intact, Fully Oriented, Alert, Normal Mood/Affect, Normal Response, Motor Strength 5/5. Heart Score/ECG Review #1 ECG reviewed & interpreted by me at: 03:17 (Left axis deviation) General ECG Interpretation: Sinus Rhythm, Normal Rate, Normal Intervals, No acute ischemic changes Compared to previous ECG there are: No significant change (04/15/17) ED Treatment Course - LABORATORY CBC & Chemistry Diagram: 07/18/17 18:05 07/18/17 18:05 - ADDITIONAL ORDERS Additional order review: Laboratory Results 07/18/17 07/18/17 18:05 18:05 Sodium 139 Potassium 3.9 Chloride 103 Carbon Dioxide 29 Anion Gap 7 L BUN 19 H Creatinine 0.9 D Creat Clearance w eGFR > 60 Random Glucose 109 H Calcium 8.6 Total Bilirubin 0.8 AST 15 ALT 19 Alkaline Phosphatase 94 Creatine Kinase 120 Troponin I 0.06 H Total Protein 7.6 Albumin 3.5 Urine Color Yellow Urine Appearance Cloudy Urine pH 5.0 Ur Specific [place] 1.017 Urine Protein Negative Urine Glucose (UA) Negative Urine Ketones Negative Urine Blood 1+ H Urine Nitrite Negative Urine Bilirubin Negative Urine Urobilinogen Negative 07/18/17 18:05 RBC 4.81 MCV 87.9 MCHC 32.9 RDW 13.7 MPV 9.8 Neutrophils % 68.9 Lymphocytes % 17.6 D Monocytes % 7.6 Eosinophils % 5.0 H Basophils % 0.9 - RADIOLOGY Radiology Studies Ordered: Category Date Time Status HEAD CT WITHOUT CONTRAST [CT] Stat CT Scan 07/18/17 21:41 Ordered Medical Decision Making - Medical Decision Making 07/18/17 22:15 The patient is a 71 year old female with a history of HTN, HLD, COPD who presents for evaluation of dizziness. Differential includes but is not limited to: ACS, vertigo, intracranial process, infectious, metabolic derangement. Given the patient's physical exam and history, it is likely the patient's symptoms are due to vertigo. However we will obtain a cbc, cmp, troponin, ekg, and head ct to evaluate for other etiologies. We will treat with meclizine and continue to monitor and reassess. 07/19/17 03:15 cbc, cmp, troponin, ekg are unremarkable. UA demonstrates concerns for a UTI. Head CT is negative as preliminarily read by our fashion marketer radiologist pending official radiology read. We have sent a prescription for antibiotics to the pharmacy and will give the patient a does of levaquin here in the ED. We are comfortable discharging the patient home at this time with PCP follow up. We discussed the results and the plan with the patient who voiced understanding and is agreeable with the plan. *DC/Admit/Observation/Transfer Diagnosis at time of Disposition: Vertigo UTI (urinary tract infection) Qualifiers: Urinary tract infection type: site unspecified Hematuria presence: without hematuria Qualified Code(s): N39.0 - Urinary tract infection, site not specified - Discharge Dispostion Disposition: HOME Condition at time of disposition: Improved Admit: No - Referrals Referrals: Ronit Erazo MD [Primary Care Provider] - Russell Cuevas DO [Staff Physician] - - Patient Instructions Printed Discharge Instructions: DI for Vertigo, DI for Urinary Tract Infection (UTI) Additional Instructions: Please return to the ER if you experience concerning or worsening symptoms including fevers, headache, difficulty walking. You were seen in the ER for dizziness. Your lab results and x-rays were normal here in the ER. Your urine showed signs of a urinary tract infection. We have sent a prescription to the pharmacy for antibiotics which you should take as directed. Please call to schedule a follow up appointment with your primary care provider and a neurologist to discuss your ER visit within 1 week. - Post Discharge Activity
[2017-07-18 21:57] LABS: URINE LEUK ESTERASE 1+ (NEGATIVE)
[2017-07-18] MEDS ORDERED: MECLIZINE HCL 25 MG TABLET (FP) ONE (22:00)
[2017-07-18 22:03] LABS: URINE MUCUS RARE; URINE RBC 1 /hpf (0-3); URINE WBC 32 /hpf (3-5)
[2017-07-18] MEDS ORDERED: ACETAMINOPHEN 325 MG TABLET (FP) PO ONE (23:30)
[2017-07-18] MEDS ORDERED: ACETAMINOPHEN 325 MG TABLET (FP) ONE (23:35)
[2017-07-19] MEDS ORDERED: LEVOFLOXACIN 500 MG TABLET (FP) PO ONE (00:24)
[2017-07-19] MEDS ORDERED: LEVOFLOXACIN 500 MG TABLET (FP) ONE (01:36)
--- NOTE | 2017-07-19 13:03 | EKG ---
Test Reason : Blood Pressure : / mmHG Vent. Rate : 063 BPM Atrial Rate : 063 BPM P-R Int : 160 ms QRS Dur : 128 ms QT Int : 414 ms P-R-T Axes : 017 -54 082 degrees QTc Int : 423 ms NORMAL SINUS RHYTHM LEFT AXIS DEVIATION NON-SPECIFIC INTRA-VENTRICULAR CONDUCTION BLOCK ABNORMAL ECG WHEN COMPARED WITH ECG OF 15-APR-2017 09:27, NON-SPECIFIC INTRA-VENTRICULAR CONDUCTION BLOCK HAS REPLACED RIGHT BUNDLE BRANCH BLOCK Confirmed by KARTIK DUENAS MD ([id number]) on 07/19/2017 1:03:15 PM Referred By: Confirmed By:KARTIK DUENAS MD
== END 2017-07-19 01:56 | disposition home or self-care (01) ==
LOC: JER 17:42
DX: N39.0 Urinary tract infection, site not specified (principal); R42 Dizziness and giddiness; I10 Essential (primary) hypertension; E11.9 Type 2 diabetes mellitus without complications; Z79.84 Long term (current) use of oral hypoglycemic drugs; J44.9 Chronic obstructive pulmonary disease, unspecified; Z99.81 Dependence on supplemental oxygen; R91.8 Other nonspecific abnormal finding of lung field; Z85.3 Personal history of malignant neoplasm of breast; Z90.12 Acquired absence of left breast and nipple
CPT/HCPCS: 36415; 70450-TC; 80053; 81003; 81015; 82550; 84484; 85025; 93005; 93010; 99281-25

== ENCOUNTER 2018-10-02 06:12 | Day surgery (SDC) | payer OTHER ==
[2018-10-01 10:29] VITALS: BMI 31.2
[~2018-10-02 06:12] MED LIST: ACETAMINOPHEN 325 MG TABLET (FP) PO PRN; CYCLOPENTOLATE HCL 1% OPHTH SOLN 2 ML BOTTLE OP SCH; KETOROLAC TROMETHAMINE 0.5% EYE DROP 1 DROP DROPS OP SCH; OFLOXACIN 0.3% OPHTHALMIC SOLUTION 5 ML BOTTLE OP SCH
[2018-10-02] MEDS ORDERED: OFLOXACIN 0.3% OPHTHALMIC SOLUTION 5 ML BOTTLE ONE (06:25)
[2018-10-02] MEDS ORDERED: CYCLOPENTOLATE HCL 1% OPHTH SOLN 2 ML BOTTLE ONE (06:25)
[2018-10-02] MEDS ORDERED: TROPICAMIDE 1% OPHTH SOLN 15 ML BOTTLE ONE (06:25)
[2018-10-02] MEDS ORDERED: KETOROLAC TROMETHAMINE 0.5% EYE DROP 1 DROP DROPS ONE (06:26)
[2018-10-02] MEDS ORDERED: TROPICAMIDE 1% OPHTH SOLN 15 ML BOTTLE OS ONE ×3 (06:40→06:50)
[2018-10-02] MEDS ORDERED: KETOROLAC TROMETHAMINE 0.5% EYE DROP 1 DROP DROPS OS ONE ×3 (06:40→06:50)
[2018-10-02] MEDS ORDERED: OFLOXACIN 0.3% OPHTHALMIC SOLUTION 5 ML BOTTLE OS ONE ×3 (06:40→06:50)
[2018-10-02] MEDS ORDERED: CYCLOPENTOLATE HCL 1% OPHTH SOLN 2 ML BOTTLE OS ONE ×3 (06:40→06:50)
[2018-10-02] MEDS ORDERED: PHENYLEPHRINE 2.5% OPHTH SOLN 15 ML BOTTLE OS ONE ×3 (06:40→06:50)
[2018-10-02] MEDS ORDERED: EPINEPHrine/PF 1 MG/1 ML (1:1,000) AMPULE ONE (07:17)
[2018-10-02] MEDS ORDERED: VANCOMYCIN 500 MG VIAL (RESTRICTED TO ID ONLY) ONE (07:17)
[2018-10-02] MEDS ORDERED: WATER FOR INJ,STERILE 10 ML ONE (07:18)
[2018-10-02] MEDS ORDERED: LIDOCAINE HCL/PF 1% SDV 5ML VIAL ONE (07:18)
[2018-10-02] MEDS ORDERED: TETRACAINE 0.5% OPHTH SOLN 2 ML BOTTLE ONE (07:18)
[2018-10-02] MEDS ORDERED: POVIDONE-IODINE 5% OPHTHALMIC PREP 30 ML SOLUTION ONE (07:18)
[2018-10-02] MEDS ORDERED: PHENYLEPHRINE 2.5% OPHTH SOLN 15 ML BOTTLE OP SCH (07:45)
[2018-10-02] MEDS ORDERED: TROPICAMIDE 1% OPHTH SOLN 15 ML BOTTLE OP SCH (07:45)
[2018-10-02] MEDS ORDERED: ACETAMINOPHEN 325 MG TABLET (FP) PO PRN (07:45)
[2018-10-02] MEDS ORDERED: MIDAZOLAM HCL 2 MG/2 ML SINGLE DOSE VIAL ONE (07:53)
[2018-10-02] MEDS ORDERED: TETRACAINE 0.5% OPHTH SOLN 2 ML BOTTLE OS ONE (08:10)
[2018-10-02] MEDS ORDERED: POVIDONE-IODINE 5% OPHTHALMIC PREP 30 ML SOLUTION OS ONE (08:11)
[2018-10-02] MEDS ORDERED: LIDOCAINE HCL 1% PRESERVATIVE FREE - 30ML VIAL IO ONE (08:15)
[2018-10-02] MEDS ORDERED: BSS (NA/CA/MG/K) BALANCED SALT SOLUTION OPHTH SOLN 15 ML BOTTLE OS ONE (08:16)
[2018-10-02] MEDS ORDERED: CHONDROITIN SU A/HYALUR SOD 1 KIT IO ONE (08:16)
[2018-10-02] MEDS ORDERED: EPINEPHrine/PF 1 MG/1 ML (1:1,000) AMPULE IO ONE (08:16)
--- NOTE | 2018-10-02 09:04 | SPEC ---
DATE OF OPERATION: 10/02/2018 PREOPERATIVE DIAGNOSIS: Cataract, left eye. POSTOPERATIVE DIAGNOSIS: Cataract, left eye. PROCEDURE: Phacoemulsification of left cataract with posterior chamber intraocular lens implantation. Lens used [id number], 19.0 diopter power, serial No. [id number]. SURGEON: Jignesh Ortiz M.D. ANESTHESIA: Topical MAC. COMPLICATIONS: None. DESCRIPTION OF PROCEDURE: The patient was brought to the operating room and correctly identified along with the operative site and the correct intraocular lens valentine. The patient was then prepped and draped in the usual sterile fashion including 5% Betadine solution in the conjunctival sac and an eyelid drape. An eyelid speculum was then placed in the eye. A paracentesis port was created and approximately 0.5 mL of preservative free Lidocaine was then injected into the eye. Viscoelastic was then injected to inflate the anterior chamber. A temporal clear corneal wound was created. A continuous circular capsulorrhexis was performed. The nucleus was then hydrodissected with BSS and removed with phacoemulsification. The remaining cortical material was irrigated and aspirated. Viscoelastic was injected to inflate the capsular bag and the intraocular lens was then implanted into the capsular bag. The remaining Viscoelastic was irrigated and aspirated from the eye. The IOL was noted to be well centered and completely covered by the anterior capsulorrhexis. Topical vancomycin was placed and the eye patched and shielded. All wounds were tested and found to be watertight. No suture was placed. The eye was then shielded. The patient was then discharged from the operating room in stable condition. JIGNESH ORTIZ M.D. [id number]
[2018-10-02 09:24] VITALS: TEMP 97.7
[2018-10-02 09:28] VITALS: BP 137/69; PULSE 67
[2018-10-02] MEDS ORDERED: CHONDROITIN SU A/HYALUR SOD 1 KIT ONE (10:30)
== END 2018-10-02 09:10 | disposition home or self-care (01) ==
LOC: JASU-SURG 06:12
PROVIDERS: ATTEND Ophthalmology
PROC: 08RK3JZ Replacement of Left Lens with Synthetic Substitute, Percutaneous Approach (ICD-10-PCS; principal; 2018-10-02 08:00)
DX: H26.9 Unspecified cataract (principal); E11.9 Type 2 diabetes mellitus without complications; Z79.84 Long term (current) use of oral hypoglycemic drugs; J44.9 Chronic obstructive pulmonary disease, unspecified; Z99.81 Dependence on supplemental oxygen
CPT/HCPCS: 82962

== ENCOUNTER 2018-12-06 08:08 | Inpatient (IN) | payer OTHER ==
[2018-12-06] MEDS ORDERED: ALBUTEROL SO4 2.5/IPRATROPIUM 0.5 INH SOL 3 ML VIAL.NEB. NEB ONE ×4 (09:09→10:30)
--- NOTE | 2018-12-06 09:17 | PDOC ---
History of Present Illness - General Chief Complaint: Chest Pain Stated Complaint: CHEST PAIN Time Seen by Provider: 12/06/18 08:56 History Source: Patient Exam Limitations: No Limitations - History of Present Illness Initial Comments: 12/06/18 09:10 72 yo female pmh of breast CA (s/p left mastectomy) HTN, HLD, COPD (On 2L NC at night, symbicort) and chronic nondescript interstitial lung disease presents to the ED for 1 day of MELARA, productive cough, SOB. scientific aide present at bedside, helps provide HPI. Stats this am, noted MELARA, cough and worsening SOB with CP only with coughing that has resolved. Pt on symbicort as needed, took meds this am with mild improvement in breathing. Denies F/C/N/V, CP, back pain, abdominal pain, changes in bowel or bladder. Denies recent travel, sick contacts, neck stiffness. Past History - Past Medical History Allergies/Adverse Reactions: Allergies Allergy/AdvReac Type Severity Reaction Status Date / Time No Known Allergies Allergy Verified 12/06/18 08:21 Home Medications: Ambulatory Orders Levothyroxine Sodium [Levo-T] 125 mcg PO DAILY 08/10/16 Memantine HCl [Namenda Xr] 14 mg PO DAILY 08/10/16 Albuterol 2.5/Ipratropium 0.5 [Duoneb -] 1 amp NEB Q4H PRN #0 amp 08/14/16 Gabapentin [Neurontin -] 300 mg PO BID capsule 08/14/16 Albuterol 0.083% Nebulizer Zehra [Ventolin 0.083% Nebulizer Soln -] 1 amp NEB Q4H PRN #0 amp 09/04/16 Aspirin Coated [Ecotrin -] 81 mg PO DAILY tablet.ec 09/04/16 Ramipril [Altace] 2.5 mg PO DAILY #30 capsule 09/04/16 Benzonatate 200 mg PO DAILY 06/18/17 Carvedilol 6.25 mg PO BID 06/18/17 Cholecalciferol (Vitamin D3) [Vitamin D3 -] 3,000 unit PO DAILY 06/18/17 Olopatadine HCl [Pazeo] 1 drop OU DAILY 06/18/17 Simvastatin 40 mg PO DAILY 06/18/17 Sitagliptin Phosphate [Januvia] 100 mg PO DAILY 06/18/17 Glipizide/Metformin HCl [Glipizide-Metformin 5-500 mg] 1 each PO BID 06/19/17 Budesonide/Formeterol Fumarate [SYMBICORT 160/4.5mcg -] 1 inh PO BID 10/01/18 Montelukast Sodium [Singulair] 10 mg PO DAILY 10/01/18 Anemia: No Asthma: Yes Cancer: Yes (LEFT BREAST) Cardiac Disorders: No CVA: No COPD: Yes (USES OXYGEN PRN @ 2l) CHF: No Dementia: (?) Diabetes: Yes (NIDDM) GI Disorders: No Disorders: No HTN: Yes Hypercholesterolemia: Yes Liver Disease: No Seizures: No Thyroid Disease: Yes - Surgical History Abdominal Surgery: No - Immunization History Immunization Up to Date: Yes - Suicide/Smoking/Psychosocial Hx Smoking Status: No Smoking History: Never smoked Have you smoked in the past 12 months: No Number of Cigarettes Smoked Daily: 0 Cigars Per Day: 0 Hx Alcohol Use: No Drug/Substance Use Hx: No Substance Use Type: None Hx Substance Use Treatment: No Review of Systems - Review of Systems Constitutional: No: Chills, Fever Respiratory: Yes: Cough, Shortness of Breath Cardiac (ROS): No: Chest Pain (resolved) ABD/GI: No: Abdominal Distended, Constipated, Diarrhea, Nausea, Vomiting, Abdominal cramping : No: Burning, Dysuria, Discharge Musculoskeletal: No: Back Pain Neurological: Yes: Headache *Physical Exam - Vital Signs Last Vital Signs Temp Pulse Resp BP Pulse Ox 99.0 F 66 16 126/83 98 12/06/18 08:21 12/06/18 08:21 12/06/18 08:21 12/06/18 08:21 12/06/18 08:21 - Physical Exam General Appearance: Yes: Nourished, Appropriately Dressed HEENT: positive: EOMI, Normal Voice, Hearing Grossly Normal Neck: positive: Supple. negative: Carotid bruit, Tender lateral Respiratory/Chest: positive: Crackles, Rales. negative: Labored Respiration, Rapid RR Cardiovascular: positive: Regular Rhythm, Regular Rate, S1, S2. negative: Edema , JVD, Murmur Vascular Pulses: Dorsalis-Pedis (R): 4+, Doralis-Pedis (L): 4+ Gastrointestinal/Abdominal: positive: Flat, Soft. negative: Distended, Guarding , Rebound, Tenderness Musculoskeletal: negative: CVA Tenderness Extremity: positive: Normal Capillary Refill, Normal Inspection, Normal Range of Motion Integumentary: positive: Normal Color, Dry, Warm Neurologic: positive: Fully Oriented, Alert, Normal Mood/Affect ED Treatment Course - LABORATORY CBC & Chemistry Diagram: 12/06/18 09:30 12/06/18 09:30 - RADIOLOGY Radiology Studies Ordered: Category Date Time Status CHEST X-RAY PORTABLE* [RAD] Stat Radiology 12/06/18 09:08 Ordered Medical Decision Making - Medical Decision Making 12/06/18 10:24 72 yo female pmh of breast CA (s/p left mastectomy) HTN, HLD, COPD (On 2L NC at night, symbicort) and chronic nondescript interstitial lung disease presents to the ED for 1 day of MELARA, productive cough, SOB. scientific aide present at bedside, helps provide HPI. Stats this am, noted MELARA, cough and worsening SOB with CP only with coughing that has resolved. Pt on symbicort as needed, took meds this am with mild improvement in breathing. Denies F/C/N/V, CP, back pain, abdominal pain, changes in bowel or bladder. Denies recent travel, sick contacts, neck stiffness. Vitals WNL Pt receiving duonebs, O2 and steroids, reports improvement DDX INLT: COPD exacerbation, PNA, progression of interstitial lung disease, CHF CBC WNL CMP WNL Trop .06 which is baseline for pt BNP neg CXR shows congestive changes EKG NSR, no change from EKG in 2017 Pt continues to improve however due to complicated hx of COPD exacerbations requiring antibiotics, pt covered with levoflox Case discussed with Dr. Carroll in the ED, agrees to have pt admitted to obs *DC/Admit/Observation/Transfer Diagnosis at time of Disposition: COPD exacerbation - Discharge Dispostion Condition at time of disposition: Stable Decision to Admit order: Yes - Referrals - Patient Instructions - Post Discharge Activity
[2018-12-06] MEDS ORDERED: predniSONE 20 MG TABLET (UD) PO ONE (09:36)
[2018-12-06] MEDS ORDERED: ACETAMINOPHEN 325 MG TABLET (FP) PO ONE (09:47)
[2018-12-06 09:52] LABS: BASO % 0.7 % (0-2.0); EOS % 3.4 % (0-4.5); HEMATOCRIT 40.8 % (32.4-45.2); HEMOGLOBIN 13.2 GM/dL (10.7-15.3); MCHC 32.5 g/dl (32.0-36.0); MEAN CELL VOLUME 83.2 fl (80-96); MEAN PLT VOLUME 9.5 fl (7.5-11.1); MONO % 8.5 % (3.8-10.2); NEUT % 76.4 % (42.8-82.8); PLATELET COUNT 191 K/MM3 (134-434); RDW 14.3 % (11.6-15.6); WHITE BLOOD COUNT 8.4 K/mm3 (4.0-10.0)
[2018-12-06] MEDS ORDERED: predniSONE 20 MG TABLET (UD) ONE (09:59)
[2018-12-06] MEDS ORDERED: ACETAMINOPHEN 325 MG TABLET (FP) ONE (09:59)
[2018-12-06 10:41] LABS: ALBUMIN 3.4 g/dl (3.4-5.0); BILIRUBIN,TOTAL 0.6 mg/dL (0.2-1); CALCIUM 8.9 mg/dL (8.5-10.1); CREATININE 0.6 mg/dL (0.55-1.3); N-TERMINAL BNP 58.9 pg/ml (5-125); POTASSIUM 4.4 mmol/L (3.5-5.1); TOT PROT 7.6 g/dl (6.4-8.2)
--- NOTE | 2018-12-06 10:50 | PDOC ---
Documentation entered by Pancho Graf SCRIBE, acting as scribe for Alejandra Quach MD. Alejandra Quach MD: This documentation has been prepared by the Lesia michael Nirvannie, SCRIBE, under my direction and personally reviewed by me in its entirety. I confirm that the documentation accurately reflects all work, treatment, procedures, and medical decision making performed by me. Attending Attestation - Resident Resident Name: Titi Guzmán - ED Attending Attestation I have performed the following: I have examined & evaluated the patient, The case was reviewed & discussed with the resident, I agree w/resident's findings & plan, Exceptions are as noted - HPI HPI: 12/06/18 09:49 The patient is a 72 year old female, with a significant past medical history of breast CA (s/p left mastectomy), HTN, HLD, COPD (2L NC @ night, symbicort), chronic nondescript interstitial lung disease, and DM, who presents to the emergency department with, 1 day of a headache, shortness of breath, productive cough, and chest pain while coughing. As per aid at bedside, patient took her Symbicort today, with minimal improvement prompting her arrival to the ED. She denies recent fevers, chills, or dizziness. She denies recent nausea, vomit , diarrhea or constipation. She denies recent dysuria, frequency, urgency or hematuria. Allergies: NKDA Primary Care Physician: Dr. Ronit Erazo - Physicial Exam PE: GENERAL: Awake, alert, and fully oriented, in no acute distress HEAD: No signs of trauma EYES: PERRLA, EOMI, sclera anicteric, conjunctiva clear ENT: Auricles normal inspection, hearing grossly normal, nares patent, oropharynx clear without exudates. Moist mucosa NECK: Normal ROM, supple, no lymphadenopathy, JVD, or masses LUNGS: Dec air entry B/L, +diffuse rhonchi B/L. HEART: Regular rate and rhythm, normal S1 and S2, no murmurs, rubs or gallops ABDOMEN: Soft, nontender, normoactive bowel sounds. No guarding, no rebound. No masses EXTREMITIES: Normal range of motion, no edema. No clubbing or cyanosis. No cords, erythema, or tenderness NEUROLOGICAL: Cranial nerves II through XII grossly intact. Normal speech, normal gait. Motor and sensation intact SKIN: Warm, Dry, normal turgor, no rashes or lesions noted. - Medical Decision Making Pt with diffuse rhonchi, moderate cough, increased from baseline. Suspect acute bronchitis. Will treat with nebs, steroids, and abx.
--- NOTE | 2018-12-06 12:09 | HP ---
Admitting History and Physical - Primary Care Physician PCP: Ronit Erazo - Admission History of Present Illness: The patient is a 72 year old female, with a significant past medical history of breast CA (s/p left mastectomy), HTN, HLD, COPD (2L NC @ night, symbicort), chronic interstitial lung disease, and DM, who presents to the emergency department with, 1 day of a headache, shortness of breath, productive cough, and chest pain while coughing. Patient took her Symbicort today, with minimal improvement prompting her arrival to the ED. She denies recent fevers, chills, or dizziness. She denies recent nausea, vomit, diarrhea or constipation. She denies recent dysuria, frequency, urgency or hematuria. pt found in copd exac/ possible pneumonia given prednisone and abx in er pt seen by me in er still sob. 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 No: Current Radiation Therapy Endocrine: Yes: Diabetes Mellitus, Hypothyroidism - Smoking History Smoking history: Never smoked Have you smoked in the past 12 months: No Aproximately how many cigarettes per day: 0 - Alcohol/Substance Use Hx Alcohol Use: No Home Medications - Allergies Allergies/Adverse Reactions: Allergies Allergy/AdvReac Type Severity Reaction Status Date / Time No Known Allergies Allergy Verified 12/06/18 08:21 - Home Medications Home Medications: Ambulatory Orders Levothyroxine Sodium [Levo-T] 125 mcg PO DAILY 08/10/16 Memantine HCl [Namenda Xr] 14 mg PO DAILY 08/10/16 Albuterol 2.5/Ipratropium 0.5 [Duoneb -] 1 amp NEB Q4H PRN #0 amp 08/14/16 Gabapentin [Neurontin -] 300 mg PO BID capsule 08/14/16 Albuterol 0.083% Nebulizer Zehra [Ventolin 0.083% Nebulizer Soln -] 1 amp NEB Q4H PRN #0 amp 09/04/16 Aspirin Coated [Ecotrin -] 81 mg PO DAILY tablet.ec 09/04/16 Ramipril [Altace] 2.5 mg PO DAILY #30 capsule 09/04/16 Benzonatate 200 mg PO DAILY 06/18/17 Carvedilol 6.25 mg PO BID 06/18/17 Cholecalciferol (Vitamin D3) [Vitamin D3 -] 3,000 unit PO DAILY 06/18/17 Olopatadine HCl [Pazeo] 1 drop OU DAILY 06/18/17 Simvastatin 40 mg PO DAILY 06/18/17 Sitagliptin Phosphate [Januvia] 100 mg PO DAILY 06/18/17 Glipizide/Metformin HCl [Glipizide-Metformin 5-500 mg] 1 each PO BID 06/19/17 Budesonide/Formeterol Fumarate [SYMBICORT 160/4.5mcg -] 1 inh PO BID 10/01/18 Montelukast Sodium [Singulair] 10 mg PO DAILY 10/01/18 Review of Systems - Review of Systems Constitutional: reports: Fever, Weakness Eyes: reports: No Symptoms HENT: reports: No Symptoms Neck: reports: No Symptoms Cardiovascular: reports: No Symptoms Respiratory: reports: Cough, SOB, Wheezing Gastrointestinal: reports: No Symptoms Genitourinary: reports: No Symptoms Neurological: reports: No Symptoms Psychiatric: reports: No Symptoms Physical Examination Vital Signs: Vital Signs Temperature 99.0 F 12/06/18 08:21 Pulse Rate 66 12/06/18 08:21 Respiratory Rate 16 12/06/18 08:21 Blood Pressure 126/83 12/06/18 08:21 O2 Sat by Pulse Oximetry (%) 98 12/06/18 08:21 Constitutional: Yes: No Distress, Calm Eyes: Yes: Conjunctiva Clear HENT: Yes: WNL Neck: Yes: Supple Cardiovascular: Yes: Regular Rate and Rhythm Respiratory: Yes: Poor Air Entry, Rhonchi Gastrointestinal: Yes: Soft Edema: No Neurological: Yes: Alert Labs: CBC, BMP 12/06/18 09:30 12/06/18 09:30 Imaging - Results Chest X-ray: Report Reviewed EKG: Report Reviewed Problem List - Problems (1) Troponin I above reference range Code(s): R74.8 - ABNORMAL LEVELS OF OTHER SERUM ENZYMES (2) COPD exacerbation Code(s): J44.1 - CHRONIC OBSTRUCTIVE PULMONARY DISEASE W (ACUTE) EXACERBATION (3) Cough Code(s): R05 - COUGH (4) Diabetes Code(s): E11.9 - TYPE 2 DIABETES MELLITUS WITHOUT COMPLICATIONS Qualifiers: Diabetes mellitus type: type 2 Diabetes mellitus intermediate insulin use: without intermediate use Diabetes mellitus complication status: without complication Qualified Code(s): E11.9 - Type 2 diabetes mellitus without complications (5) Reactive airway disease Code(s): J45.909 - UNSPECIFIED ASTHMA, UNCOMPLICATED Qualifiers: Asthma severity: mild intermittent Assessment/Plan Admit Short course of steroids abx Nebulizer treatment Elevated troponins-- Chronic ekg- ok Cardiology/ pulmonary consults gi/ dvt prophylaxis monitor bp/ bgm meds orderes written will follow
--- NOTE | 2018-12-06 13:24 | CON.CARD ---
Consult Consult Specialty:: Cardiology Referred by:: Veronica Carroll MD Reason for Consultation:: Dyspnea, cough - History of Present Illness Chief Complaint: Dyspnea, cough History of Present Illness: Patient is a 72 year old female of descent with underlying history of breast CA s/p mastectomy s/p chemotherapy without radiation therapy, negative metastatic disease, COPD (2L NC @ night, symbicort), OSAS, ILD, HTN, hypercholesterolemia, type 2 diabetes mellitus, diabetic neuropathy, hypothyroidism and diastolic dysfunction, last visit 10/11/2018. presents with 1 day of a headache, shortness of breath, productive cough, and chest pain while coughing. As per aid at bedside, patient took her Symbicort today, with minimal improvement prompting her arrival to the ED. She denies recent fevers, chills, dizziness, nausea, vomit, diarrhea, constipation, dysuria, frequency, urgency or hematuria. 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 (Mild cognitive defect) Cardio/Vascular: Yes: HTN, Hyperlipdemia Pulmonary: Yes: COPD, Sleep Apnea, Other (Influenza) Endocrine: Yes: Diabetes Mellitus, Hypothyroidism - Alcohol/Substance Use Hx Alcohol Use: No - Smoking History Smoking history: Never smoked Have you smoked in the past 12 months: No Aproximately how many cigarettes per day: 0 Home Medications - Allergies Allergies/Adverse Reactions: Allergies Allergy/AdvReac Type Severity Reaction Status Date / Time No Known Allergies Allergy Verified 12/06/18 08:21 - Home Medications Home Medications: Ambulatory Orders Levothyroxine Sodium [Levo-T] 125 mcg PO DAILY 08/10/16 Memantine HCl [Namenda Xr] 14 mg PO DAILY 08/10/16 Albuterol 2.5/Ipratropium 0.5 [Duoneb -] 1 amp NEB Q4H PRN #0 amp 08/14/16 Gabapentin [Neurontin -] 300 mg PO BID capsule 08/14/16 Albuterol 0.083% Nebulizer Zehra [Ventolin 0.083% Nebulizer Soln -] 1 amp NEB Q4H PRN #0 amp 09/04/16 Aspirin Coated [Ecotrin -] 81 mg PO DAILY tablet.ec 09/04/16 Ramipril [Altace] 2.5 mg PO DAILY #30 capsule 09/04/16 Benzonatate 200 mg PO DAILY 06/18/17 Carvedilol 6.25 mg PO BID 06/18/17 Cholecalciferol (Vitamin D3) [Vitamin D3 -] 3,000 unit PO DAILY 06/18/17 Olopatadine HCl [Pazeo] 1 drop OU DAILY 06/18/17 Simvastatin 40 mg PO DAILY 06/18/17 Sitagliptin Phosphate [Januvia] 100 mg PO DAILY 06/18/17 Glipizide/Metformin HCl [Glipizide-Metformin 5-500 mg] 1 each PO BID 06/19/17 Budesonide/Formeterol Fumarate [SYMBICORT 160/4.5mcg -] 1 inh PO BID 10/01/18 Montelukast Sodium [Singulair] 10 mg PO DAILY 10/01/18 Vital Signs: Vital Signs Temperature 99.0 F 12/06/18 08:21 Pulse Rate 61 12/06/18 12:12 Respiratory Rate 18 12/06/18 12:12 Blood Pressure 108/44 L 12/06/18 12:12 O2 Sat by Pulse Oximetry (%) 95 12/06/18 12:12 Constitutional: Yes: No Distress, Calm Neck: Yes: Supple Respiratory: Yes: Regular, Cough, Diminished, SOB Gastrointestinal: Yes: Normal Bowel Sounds, Soft Cardiovascular: Yes: Regular Rate and Rhythm JVD: No Carotid Bruit: No Heart Sounds: Yes: S1, S2 Edema: No - Other Data Labs, Other Data: CBC, BMP 12/06/18 09:30 12/06/18 09:30 Troponin, BNP 12/06/18 09:30 Troponin I 0.06 H B-Natriuretic Peptide 58.9 Troponin, BNP 12/06/18 09:30 Troponin I 0.06 H B-Natriuretic Peptide 58.9 Problem List - Problems (1) COPD exacerbation Code(s): J44.1 - CHRONIC OBSTRUCTIVE PULMONARY DISEASE W (ACUTE) EXACERBATION (2) Cough Code(s): R05 - COUGH (3) Diabetes Code(s): E11.9 - TYPE 2 DIABETES MELLITUS WITHOUT COMPLICATIONS Qualifiers: Diabetes mellitus type: type 2 Diabetes mellitus fpc insulin use: without oil heaterman use Diabetes mellitus complication status: without complication Qualified Code(s): E11.9 - Type 2 diabetes mellitus without complications (4) Diabetic neuropathy Code(s): E11.40 - TYPE 2 DIABETES MELLITUS WITH DIABETIC NEUROPATHY, UNSP Qualifiers: Diabetes mellitus type: type 2 (5) Exogenous obesity Code(s): E66.9 - OBESITY, UNSPECIFIED (6) Hyperlipidemia associated with type 2 diabetes mellitus Code(s): E11.69 - TYPE 2 DIABETES MELLITUS WITH OTHER SPECIFIED COMPLICATION; E78.5 - HYPERLIPIDEMIA, UNSPECIFIED (7) Hypertension Code(s): I10 - ESSENTIAL (PRIMARY) HYPERTENSION Qualifiers: Hypertension type: essential hypertension Qualified Code(s): I10 - Essential (primary) hypertension (8) Hypothyroidism Code(s): E03.9 - HYPOTHYROIDISM, UNSPECIFIED Qualifiers: Hypothyroidism type: unspecified Qualified Code(s): E03.9 - Hypothyroidism , unspecified (9) Interstitial lung disease Code(s): J84.9 - INTERSTITIAL PULMONARY DISEASE, UNSPECIFIED (10) Shortness of breath Code(s): R06.02 - SHORTNESS OF BREATH (11) Subendocardial ischemia Code(s): I24.8 - OTHER FORMS OF ACUTE ISCHEMIC HEART DISEASE Assessment/Plan Echocardiogram: 08/29/2018 Normal LV size and fxn LVEF 60-65%, mild LVH, grade 2 diastolic dysfunction with elevated filling pressure, mild AR, mild MR, mild TR, mild [place] Echocardiography performed 08/11/16 revealed normal LV size and function, mild MR , AR and TR, MAC and AV sclerosis 1. Acute COPD exacerbation with acute bronchitis superimposed on home O2 dependent ILD 2. 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 Diastolic LV dysfunction with class 0 NYHA classification LV failure 4. HTN 5. DM 6. Hypercholesterolemia 7. Hypothyroidism 8. Peripheral diabetic neuropathy PLAN: 1. Continue carvedilol 6.25 bid 2. Continue Ramipril 2.5 qd 3. Continue Zocor 40 qhs 4. Continue ASA 81 qd 5. Continue IV antibiotics, bronchodilators and IV steroids as per pulmonary service 6. Thank you for consultative opportunuity
--- NOTE | 2018-12-06 13:39 | EKG ---
Test Reason : Blood Pressure : / mmHG Vent. Rate : 070 BPM Atrial Rate : 070 BPM P-R Int : 144 ms QRS Dur : 130 ms QT Int : 392 ms P-R-T Axes : 005 -59 082 degrees QTc Int : 423 ms NORMAL SINUS RHYTHM LEFT AXIS DEVIATION NON-SPECIFIC INTRA-VENTRICULAR CONDUCTION BLOCK LATERAL INFARCT , AGE UNDETERMINED ABNORMAL ECG WHEN COMPARED WITH ECG OF 18-JUL-2017 21:51, NO SIGNIFICANT CHANGE WAS FOUND Confirmed by CAROL ANN HENDERSON MD ([id number]) on 12/06/2018 1:39:30 PM Referred By: Confirmed By:CAROL ANN HENDERSON MD
[2018-12-06] MEDS: methylPREDNISolone NA SUCC 40 MG/1 ML VIAL IVPUSH SCH ×2 (14:51→21:49)
--- NOTE | 2018-12-06 14:58 | CON.PULM ---
Consult Consult Specialty:: PULMONARY Referred by:: ATIF Reason for Consultation:: SOB/COUGH/FEVER - History of Present Illness Chief Complaint: SOB/COUGH History of Present Illness: The patient is a 72 year old female, with a significant past medical history of breast CA (s/p left mastectomy), HTN, HLD, COPD (2L NC @ night, symbicort), chronic interstitial lung disease, and DM, who presents to the emergency department with, 1 day of a headache, shortness of breath, productive cough, and chest pain while coughing. Patient took her Symbicort today, with minimal improvement prompting her arrival to the ED. She denies recent fevers, chills, or dizziness. She denies recent nausea, vomit, diarrhea or constipation. She denies recent dysuria, frequency, urgency or hematuria. 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 No: Alzheimer's Cardio/Vascular: Yes: HTN, Hyperlipdemia Pulmonary: Yes: COPD, Sleep Apnea, Other (Influenza) Hepatobiliary: No: Cirrhosis Renal/: No: Renal Failure Reproductive: Yes: Postmenopausal ...: No Heme/Onc: No: Anemia Psych: No: Addictions Endocrine: Yes: Diabetes Mellitus, Hypothyroidism - Alcohol/Substance Use Hx Alcohol Use: No History of Substance Use: reports: None - Smoking History Smoking history: Never smoked Have you smoked in the past 12 months: No Aproximately how many cigarettes per day: 0 - Social History Place of : Other History of Recent Travel: No Home Medications - Allergies Allergies/Adverse Reactions: Allergies Allergy/AdvReac Type Severity Reaction Status Date / Time No Known Allergies Allergy Verified 12/06/18 08:21 - Home Medications Home Medications: Ambulatory Orders Levothyroxine Sodium [Levo-T] 125 mcg PO DAILY 08/10/16 Memantine HCl [Namenda Xr] 14 mg PO DAILY 08/10/16 Albuterol 2.5/Ipratropium 0.5 [Duoneb -] 1 amp NEB Q4H PRN #0 amp 08/14/16 Gabapentin [Neurontin -] 300 mg PO BID capsule 08/14/16 Albuterol 0.083% Nebulizer Zehra [Ventolin 0.083% Nebulizer Soln -] 1 amp NEB Q4H PRN #0 amp 09/04/16 Aspirin Coated [Ecotrin -] 81 mg PO DAILY tablet.ec 09/04/16 Ramipril [Altace] 2.5 mg PO DAILY #30 capsule 09/04/16 Benzonatate 200 mg PO DAILY 06/18/17 Carvedilol 6.25 mg PO BID 06/18/17 Cholecalciferol (Vitamin D3) [Vitamin D3 -] 3,000 unit PO DAILY 06/18/17 Olopatadine HCl [Pazeo] 1 drop OU DAILY 06/18/17 Simvastatin 40 mg PO DAILY 06/18/17 Sitagliptin Phosphate [Januvia] 100 mg PO DAILY 06/18/17 Glipizide/Metformin HCl [Glipizide-Metformin 5-500 mg] 1 each PO BID 06/19/17 Budesonide/Formeterol Fumarate [SYMBICORT 160/4.5mcg -] 1 inh PO BID 10/01/18 Montelukast Sodium [Singulair] 10 mg PO DAILY 10/01/18 Family Disease History - Family Disease History Family History: Unable to Obtain Review of Systems - Review of Systems Constitutional: reports: Fever Cardiovascular: reports: Chest Pain Respiratory: reports: Cough, SOB on Exertion Gastrointestinal: denies: Abdominal Pain Genitourinary: denies: Burning Breasts: denies: No Symptoms Reported Musculoskeletal: denies: Back Pain Physical Exam Vital Sings: Vital Signs Temperature 99.0 F 12/06/18 08:21 Pulse Rate 61 12/06/18 12:12 Respiratory Rate 18 12/06/18 12:12 Blood Pressure 108/44 L 12/06/18 12:12 O2 Sat by Pulse Oximetry (%) 95 12/06/18 12:12 Constitutional: Yes: Anxious Eyes: Yes: EOM Intact Neck: Yes: Trachea Midline Cardiovascular: Yes: Regular Rate and Rhythm, S1, S2 Respiratory: Yes: Rales, Rhonchi ...Inspection: Yes: WNL ...Percussion: No: Dullnes Gastrointestinal: Yes: Normal Bowel Sounds, Abdomen, Obese Renal/: Yes: WNL Musculoskeletal: Yes: WNL Extremities: Yes: WNL Integumentary: Yes: WNL Neurological: Yes: Alert Labs: CBC, BMP 12/06/18 09:30 12/06/18 09:30 LABS REVIEWED Imaging - Results Chest X-ray: Report Reviewed, Image Reviewed Cat Scan: Report Reviewed, Image Reviewed EKG: Image Reviewed Problem List - Problems (1) COPD exacerbation Code(s): J44.1 - CHRONIC OBSTRUCTIVE PULMONARY DISEASE W (ACUTE) EXACERBATION (2) Cough Code(s): R05 - COUGH (3) Diabetes Code(s): E11.9 - TYPE 2 DIABETES MELLITUS WITHOUT COMPLICATIONS Qualifiers: Diabetes mellitus type: type 2 Diabetes mellitus fci insulin use: without fci use Diabetes mellitus complication status: without complication Qualified Code(s): E11.9 - Type 2 diabetes mellitus without complications (4) Exogenous obesity Code(s): E66.9 - OBESITY, UNSPECIFIED (5) Hypertension Code(s): I10 - ESSENTIAL (PRIMARY) HYPERTENSION Qualifiers: Hypertension type: essential hypertension Qualified Code(s): I10 - Essential (primary) hypertension (6) Hypothyroidism Code(s): E03.9 - HYPOTHYROIDISM, UNSPECIFIED Qualifiers: Hypothyroidism type: unspecified Qualified Code(s): E03.9 - Hypothyroidism , unspecified (7) Interstitial lung disease Code(s): J84.9 - INTERSTITIAL PULMONARY DISEASE, UNSPECIFIED Assessment/Plan LIKELY A/E COPD SECONDARY TO ACUTE BRONCHITIS SUPERIMPOSED UPON ILD (HAS HOME O2 ) HTN/DM/HPL BREAST CA S/P LEFT MASTECTOMY O2 SUPPLEMENTATION IV ANTIBIOTICS COURSE OF IV STEROIDS BRONCHODILATORS GLYCEMIC CONTROL DVT PROPHYLAXSIS WILL FOLLOW Justen ORR MD
[2018-12-06 15:20] VITALS: BMI 38.3
[2018-12-06] MEDS: glipiZIDE 5 MG TABLET (FP) PO SCH (16:38)
[2018-12-06] MEDS: metFORMIN HCL 500 MG TABLET (FP) PO SCH (16:38)
[2018-12-06] MEDS: INSULIN SLIDING SCALE (NOVOLOG) 1 VIAL SQ SCH (16:40)
[2018-12-06] MEDS: BUDESONIDE/FORMETEROL FUMARATE 160/4.5 mcg INHALER IH SCH (21:47)
[2018-12-06] MEDS: MONTELUKAST NA 10 MG TABLET PO SCH (21:48)
[2018-12-06] MEDS: CARVEDILOL 6.25 MG TABLET (FP) PO SCH (21:48)
[2018-12-06] MEDS: GABAPENTIN 300 MG CAPSULE (FP) PO SCH (21:48)
[2018-12-06] MEDS: ATORVASTATIN CA 20 MG TABLET (FP) PO SCH (21:49)
[2018-12-06] MEDS: HEPARIN NA (PORCINE) 5,000 UNITS/ML 1ML VIAL SQ SCH (21:49)
[2018-12-06] MEDS ORDERED: PATIENT'S OWN MEDICATION (NON-FORMULARY) (Glipizide/Metformin Hcl [Glipizide-Metformin 5-5 PO SCH (22:00)
[2018-12-07] MEDS: methylPREDNISolone NA SUCC 40 MG/1 ML VIAL IVPUSH SCH ×5 (04:00→21:48)
[2018-12-07] MEDS: ALBUTEROL SO4 2.5/IPRATROPIUM 0.5 INH SOL 3 ML VIAL.NEB. NEB PRN ×4 (06:40→21:05)
[2018-12-07] MEDS: sitaGLIPtin PHOSPHATE 100 MG TABLET (FP) PO SCH (06:51)
[2018-12-07] MEDS: glipiZIDE 5 MG TABLET (FP) PO SCH ×2 (06:51→17:19)
[2018-12-07] MEDS: LEVOTHYROXINE NA 125 MCG TABLET (FP) PO SCH (06:51)
[2018-12-07] MEDS: metFORMIN HCL 500 MG TABLET (FP) PO SCH ×2 (06:51→17:19)
[2018-12-07] MEDS: INSULIN SLIDING SCALE (NOVOLOG) 1 VIAL SQ SCH ×3 (06:52→17:17)
[2018-12-07 07:11] LABS: BASO % 0.3 % (0-2.0); HEMATOCRIT 40.5 % (32.4-45.2); HEMOGLOBIN 13.3 GM/dL (10.7-15.3); LYMPH % 7.7 % (8-40); MCH 27.2 pg (25.7-33.7); MCHC 32.9 g/dl (32.0-36.0); MEAN CELL VOLUME 82.9 fl (80-96); MEAN PLT VOLUME 9.6 fl (7.5-11.1); MONO % 2.6 % (3.8-10.2); NEUT % 89.4 % (42.8-82.8); PLATELET COUNT 202 K/MM3 (134-434); RBC 4.88 M/mm3 (3.60-5.2); RDW 14.5 % (11.6-15.6); WHITE BLOOD COUNT 8.6 K/mm3 (4.0-10.0)
[2018-12-07 07:49] LABS: ALBUMIN 3.4 g/dl (3.4-5.0); BILIRUBIN,TOTAL 0.5 mg/dL (0.2-1); CALCIUM 8.8 mg/dL (8.5-10.1); CREATININE 0.7 mg/dL (0.55-1.3); POTASSIUM 4.1 mmol/L (3.5-5.1); TOT PROT 7.6 g/dl (6.4-8.2)
[2018-12-07] MEDS ORDERED: PATIENT'S OWN MEDICATION (NON-FORMULARY) (Benzonatate [Benzonatate] 200 MG) PO SCH (10:00)
[2018-12-07] MEDS ORDERED: PATIENT'S OWN MEDICATION (NON-FORMULARY) (Memantine Hcl [Namenda Xr] 14 MG) PO SCH (10:00)
[2018-12-07] MEDS ORDERED: methylPREDNISolone NA SUCC 40 MG/1 ML VIAL IVPUSH SCH (10:00)
[2018-12-07] MEDS ORDERED: PATIENT'S OWN MEDICATION (NON-FORMULARY) (Olopatadine Hcl [Pazeo] 1 DROP) OU SCH (10:00)
--- NOTE | 2018-12-07 10:05 | PN ---
Progress Note (short form) - Note Progress Note: pt seen/ examined. all consults noted / appreciated feels better still coughing Vital Signs Temp 98.1 F 12/07/18 06:00 Pulse 59 L 12/07/18 06:00 Resp 20 12/07/18 06:00 BP 126/65 12/07/18 06:00 Pulse Ox 94 L 12/06/18 21:00 Intake & Output 12/06/18 12/06/18 12/07/18 11:59 23:59 11:59 Intake Total 500 300 Balance 500 300 Weight 162 lb 165 lb Intake: IVPB 100 Oral 400 300 Other: Voiding Method Toilet Toilet # Unmeasured Voids Void 3 2 Bowel Movement No Height 5 ft 4 ft 7 in Body Mass Index (BMI) 31.6 38.3 Weight Measurement Method Standing Scale Weight Measurement Method Est/Stated by Patient Active Medications Acetaminophen (Tylenol -) 650 mg PO Q6H PRN PRN Reason: HEADACHE Albuterol/Ipratropium (Duoneb -) 1 amp NEB Q4H PRN PRN Reason: SHORTNESS OF BREATH Last Admin: 12/07/18 06:40 Dose: 1 amp Aspirin (Ecotrin -) 81 mg PO DAILY [facility] Atorvastatin Calcium (Lipitor -) 20 mg PO HS [facility] Last Admin: 12/06/18 21:49 Dose: 20 mg Budesonide/Formoterol Fumarate (Symbicort 160/4.5mcg -) 1 puff IH BID [facility] Last Admin: 12/06/18 21:47 Dose: 1 puff Carvedilol (Coreg -) 6.25 mg PO BID [facility] Last Admin: 12/06/18 21:48 Dose: 6.25 mg Cholecalciferol (Vitamin D3 -) 3,000 unit PO DAILY [facility] Gabapentin (Neurontin -) 300 mg PO BID [facility] Last Admin: 12/06/18 21:48 Dose: 300 mg Glipizide (Glucotrol -) 5 mg PO BIDAC [facility] Last Admin: 12/07/18 06:51 Dose: 5 mg Heparin Sodium (Porcine) (Heparin -) 5,000 unit SQ BID [facility] Last Admin: 12/06/18 21:49 Dose: Not Given Levofloxacin (Levaquin 500 Mg Premixed Ivpb -) 500 mg in 100 mls @ 100 mls/hr IVPB DAILY [facility]; Protocol Insulin Aspart (Novolog Vial Sliding Scale -) 1 vial SQ TIDAC ANU; Protocol Last Admin: 12/07/18 06:52 Dose: 3 units Levothyroxine Sodium (Synthroid -) 125 mcg PO DAILY@0700 [facility] Last Admin: 12/07/18 06:51 Dose: 125 mcg Metformin HCl (Glucophage -) 500 mg PO BIDAC [facility] Last Admin: 12/07/18 06:51 Dose: 500 mg Methylprednisolone Sodium Succinate (Solu-Medrol -) 40 mg IVPUSH Q6H-IV [facility] Last Admin: 12/07/18 04:00 Dose: 40 mg Montelukast Sodium (Singulair -) 10 mg PO HS [facility] Last Admin: 12/06/18 21:48 Dose: 10 mg Non-Formulary Medication (Benzonatate [Benzonatate]) 200 mg PO DAILY [facility] Non-Formulary Medication (Memantine Hcl [Namenda Xr]) 14 mg PO DAILY [facility] Non-Formulary Medication (Olopatadine Hcl [Pazeo]) 1 drop OU DAILY [facility] Pantoprazole Sodium (Protonix -) 40 mg PO DAILY [facility] Ramipril (Altace -) 2.5 mg PO DAILY [facility] Sitagliptin Phosphate (Januvia -) 100 mg PO DAILY@0700 [facility] Last Admin: 12/07/18 06:51 Dose: 100 mg CBC, BMP 12/07/18 06:30 12/07/18 06:30 CMP Sodium 137 mmol/L (136-145) 12/07/18 06:30 Potassium 4.1 mmol/L (3.5-5.1) 12/07/18 06:30 Chloride 102 mmol/L (98-107) 12/07/18 06:30 Carbon Dioxide 29 mmol/L (21-32) 12/07/18 06:30 Anion Gap 6 MMOL/L (8-16) L 12/07/18 06:30 BUN 13 mg/dL (7-18) 12/07/18 06:30 Creatinine 0.7 mg/dL (0.55-1.3) 12/07/18 06:30 Est GFR (CKD-EPI)AfAm 100.32 12/07/18 06:30 Est GFR (CKD-EPI)NonAf 86.56 12/07/18 06:30 POC Glucometer 168 UNITS (80-120) 12/07/18 06:42 Random Glucose 179 mg/dL (74-106) H 12/07/18 06:30 Calcium 8.8 mg/dL (8.5-10.1) 12/07/18 06:30 Total Bilirubin 0.5 mg/dL (0.2-1) 12/07/18 06:30 AST 17 U/L (15-37) 12/07/18 06:30 ALT 18 U/L (13-61) 12/07/18 06:30 Alkaline Phosphatase 71 U/L (45-117) 12/07/18 06:30 Creatine Kinase 218 U/L (26-192) H 12/07/18 06:30 Creatine Kinase Index 0.9 % (0.0-5.0) 12/07/18 06:30 CK-MB (CK-2) 2.1 ng/mL (0.5-3.6) 12/07/18 06:30 Troponin I 0.04 ng/ml (0.00-0.05) 12/07/18 06:30 B-Natriuretic Peptide 58.9 pg/ml (5-125) 12/06/18 09:30 Total Protein 7.6 g/dl (6.4-8.2) 12/07/18 06:30 Albumin 3.4 g/dl (3.4-5.0) 12/07/18 06:30 Triglycerides 82 mg/dL (0-150) 12/07/18 06:30 Cholesterol 173 mg/dL (50-200) 12/07/18 06:30 Total LDL Cholesterol 94 mg/dL (5-100) 12/07/18 06:30 HDL Cholesterol 75 mg/dL (40-60) H 12/07/18 06:30 TSH 1.43 uIU/ml (0.358-3.74) 12/07/18 06:30 Physical Examination Constitutional: Yes: No Distress, Calm Eyes: Yes: Conjunctiva Clear HENT: Yes: WNL Neck: Yes: Supple. no jvd. Cardiovascular: Yes: Regular Rate and Rhythm Respiratory: Yes: Poor Air Entry, Rhonchi-- better Gastrointestinal: Yes: Soft Edema: No Neurological: Yes: Alert Imaging - Results Chest X-ray: Report Reviewed EKG: Report Reviewed Problem List - Problems (1) Troponin I above reference range Code(s): R74.8 - ABNORMAL LEVELS OF OTHER SERUM ENZYMES (2) COPD exacerbation Code(s): J44.1 - CHRONIC OBSTRUCTIVE PULMONARY DISEASE W (ACUTE) EXACERBATION (3) Cough Code(s): R05 - COUGH (4) Diabetes Code(s): E11.9 - TYPE 2 DIABETES MELLITUS WITHOUT COMPLICATIONS Qualifiers: Diabetes mellitus type: type 2 Diabetes mellitus shelter insulin use: without shelter use Diabetes mellitus complication status: without complication Qualified Code(s): E11.9 - Type 2 diabetes mellitus without complications (5) Reactive airway disease Code(s): J45.909 - UNSPECIFIED ASTHMA, UNCOMPLICATED Qualifiers: Asthma severity: mild intermittent Assessment/Plan Better Short course of steroids abx Nebulizer treatment Elevated troponins-- Chronic ekg- ok Cardiology/ pulmonary consults appreciated gi/ dvt prophylaxis monitor bp/ bgm will follow Problem List - Problems (1) Troponin I above reference range Code(s): R74.8 - ABNORMAL LEVELS OF OTHER SERUM ENZYMES (2) COPD exacerbation Code(s): J44.1 - CHRONIC OBSTRUCTIVE PULMONARY DISEASE W (ACUTE) EXACERBATION (3) Cough Code(s): R05 - COUGH (4) Diabetes Code(s): E11.9 - TYPE 2 DIABETES MELLITUS WITHOUT COMPLICATIONS Qualifiers: Diabetes mellitus type: type 2 Diabetes mellitus long term care social worker insulin use: without long term care social worker use Diabetes mellitus complication status: without complication Qualified Code(s): E11.9 - Type 2 diabetes mellitus without complications (5) Reactive airway disease Code(s): J45.909 - UNSPECIFIED ASTHMA, UNCOMPLICATED Qualifiers: Asthma severity: mild intermittent
[2018-12-07] MEDS ORDERED: BUDESONIDE 0.5 MG/2 ML INH SUSP VIAL NEB ONE (10:18)
[2018-12-07] MEDS ORDERED: PT OWN MED DRAWER 7, Y5N ONE (10:21)
[2018-12-07] MEDS: PANTOPRAZOLE 40 MG TABLET (FP) PO SCH (10:26)
[2018-12-07] MEDS: CARVEDILOL 6.25 MG TABLET (FP) PO SCH ×2 (10:27→21:49)
[2018-12-07] MEDS: CHOLECALCIFEROL (VITAMIN D3) 1,000 UNIT TABLET (FP) PO SCH (10:27)
[2018-12-07] MEDS: GABAPENTIN 300 MG CAPSULE (FP) PO SCH ×2 (10:27→21:48)
[2018-12-07] MEDS: ASPIRIN COATED 81 MG TABLET.EC PO SCH (10:27)
[2018-12-07] MEDS: HEPARIN NA (PORCINE) 5,000 UNITS/ML 1ML VIAL SQ SCH ×2 (10:28→21:49)
[2018-12-07] MEDS: RAMIPRIL 2.5 MG CAPSULE (FP) PO SCH (10:28)
[2018-12-07] MEDS: BUDESONIDE/FORMETEROL FUMARATE 160/4.5 mcg INHALER IH SCH ×2 (10:29→21:50)
[2018-12-07] MEDS: ACETAMINOPHEN 325 MG TABLET (FP) PO PRN ×2 (11:53→22:22)
--- NOTE | 2018-12-07 14:40 | PN ---
Progress Note (short form) - Note Progress Note: PULMONARY APPEARS COMFORTABLE LOW GRADE TEMP ANICTERIC BILATERAL CRACKLES S1S2 BS+ NO EDEMA LABS/MEDS/NOTES/IMAGES REVIEWED A/E COPD SECONDARY TO ACUTE BRONCHITIS SUPERIMPOSED UPON ILD (HAS HOME O2) HTN/DM/HPL BREAST CA S/P LEFT MASTECTOMY O2 SUPPLEMENTATION IV ANTIBIOTICS IV STEROIDS TO TAPER BRONCHODILATORS GLYCEMIC CONTROL DVT PROPHYLAXSIS R KIRBY RATLIFF Problem List - Problems (1) COPD exacerbation Code(s): J44.1 - CHRONIC OBSTRUCTIVE PULMONARY DISEASE W (ACUTE) EXACERBATION (2) Cough Code(s): R05 - COUGH (3) Diabetes Code(s): E11.9 - TYPE 2 DIABETES MELLITUS WITHOUT COMPLICATIONS Qualifiers: Diabetes mellitus type: type 2 Diabetes mellitus 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 insulin use: without shelter use Diabetes mellitus complication status: without complication Qualified Code(s): E11.9 - Type 2 diabetes mellitus without complications (4) Exogenous obesity Code(s): E66.9 - OBESITY, UNSPECIFIED (5) Hypertension Code(s): I10 - ESSENTIAL (PRIMARY) HYPERTENSION Qualifiers: Hypertension type: essential hypertension Qualified Code(s): I10 - Essential (primary) hypertension (6) Hypothyroidism Code(s): E03.9 - HYPOTHYROIDISM, UNSPECIFIED Qualifiers: Hypothyroidism type: unspecified Qualified Code(s): E03.9 - Hypothyroidism , unspecified (7) Interstitial lung disease Code(s): J84.9 - INTERSTITIAL PULMONARY DISEASE, UNSPECIFIED
--- NOTE | 2018-12-07 15:14 | PN ---
Progress Note (short form) - Note Progress Note: Chief Complaint: Events noted, notes reviewed, denies any chest pain, dyspnea persists but improved History of Present Illness: Seen and examined. Events noted, notes reviewed, denies any chest pain, dyspnea persists but improved Echocardiography 08/29/2018 Normal LV size and function/LVEF 60-65%, mild LVH, grade 2 diastolic dysfunction with elevated filling pressure, mild AR, mild MR, mild TR, mild VA Echocardiography 08/11/16 revealed normal LV size and function, mild MR, AR and TR, MAC and AV sclerosis - Current Medication List Current Medications Acetaminophen (Tylenol -) 650 mg PO Q6H PRN PRN Reason: HEADACHE Last Admin: 12/07/18 11:53 Dose: 650 mg Albuterol/Ipratropium (Duoneb -) 1 amp NEB Q4H PRN PRN Reason: SHORTNESS OF BREATH Last Admin: 12/07/18 11:30 Dose: 1 amp Aspirin (Ecotrin -) 81 mg PO DAILY [facility] Last Admin: 12/07/18 10:27 Dose: 81 mg Atorvastatin Calcium (Lipitor -) 20 mg PO HS [facility] Last Admin: 12/06/18 21:49 Dose: 20 mg Budesonide/Formoterol Fumarate (Symbicort 160/4.5mcg -) 1 puff IH BID [facility] Last Admin: 12/07/18 10:29 Dose: 1 puff Carvedilol (Coreg -) 6.25 mg PO BID [facility] Last Admin: 12/07/18 10:27 Dose: 6.25 mg Cholecalciferol (Vitamin D3 -) 3,000 unit PO DAILY [facility] Last Admin: 12/07/18 10:27 Dose: 3,000 unit Gabapentin (Neurontin -) 300 mg PO BID [facility] Last Admin: 12/07/18 10:27 Dose: 300 mg Glipizide (Glucotrol -) 5 mg PO BIDAC [facility] Last Admin: 12/07/18 06:51 Dose: 5 mg Heparin Sodium (Porcine) (Heparin -) 5,000 unit SQ BID [facility] Last Admin: 12/07/18 10:28 Dose: 5,000 unit Levofloxacin (Levaquin 500 Mg Premixed Ivpb -) 500 mg in 100 mls @ 100 mls/hr IVPB DAILY [facility]; Protocol Last Admin: 12/07/18 10:29 Dose: 100 mls/hr Insulin Aspart (Novolog Vial Sliding Scale -) 1 vial SQ TIDAC [facility]; Protocol Last Admin: 12/07/18 12:46 Dose: 3 units Levothyroxine Sodium (Synthroid -) 125 mcg PO DAILY@0700 [facility] Last Admin: 12/07/18 06:51 Dose: 125 mcg Metformin HCl (Glucophage -) 500 mg PO BIDAC [facility] Last Admin: 12/07/18 06:51 Dose: 500 mg Methylprednisolone Sodium Succinate (Solu-Medrol -) 40 mg IVPUSH Q8H [facility] Montelukast Sodium (Singulair -) 10 mg PO HS [facility] Last Admin: 12/06/18 21:48 Dose: 10 mg Non-Formulary Medication (Benzonatate [Benzonatate]) 200 mg PO DAILY [facility] Non-Formulary Medication (Memantine Hcl [Namenda Xr]) 14 mg PO DAILY [facility] Non-Formulary Medication (Olopatadine Hcl [Pazeo]) 1 drop OU DAILY [facility] Pantoprazole Sodium (Protonix -) 40 mg PO DAILY [facility] Last Admin: 12/07/18 10:26 Dose: 40 mg Ramipril (Altace -) 2.5 mg PO DAILY [facility] Last Admin: 12/07/18 10:28 Dose: 2.5 mg Sitagliptin Phosphate (Januvia -) 100 mg PO DAILY@0700 [facility] Last Admin: 12/07/18 06:51 Dose: 100 mg - Objective Vital Signs: Last Vital Signs Temp Pulse Resp BP Pulse Ox 98.4 F 82 18 114/58 L 94 L 12/07/18 14:00 12/07/18 14:00 12/07/18 14:00 12/07/18 14:00 12/06/18 21:00 Intake & Output 12/04/18 12/05/18 12/06/18 12/07/18 23:59 23:59 23:59 23:59 Intake Total 500 300 Balance 500 300 Weight 165 lb Neck: Supple Negative JVD No bruit Cardiovascular: S1 S2 Regular Rate and Rhythm Grade 1-2/6 JING Respiratory: Diminished Breath Sounds at the Bases Gastrointestinal: Soft Benign Normal Bowel Sounds Ext: No Edema Labs: CBC, BMP 12/07/18 06:30 12/07/18 06:30 Hepatic Panel Total Bilirubin 0.5 mg/dL (0.2-1) 12/07/18 06:30 AST 17 U/L (15-37) 12/07/18 06:30 ALT 18 U/L (13-61) 12/07/18 06:30 Alkaline Phosphatase 71 U/L (45-117) 12/07/18 06:30 Albumin 3.4 g/dl (3.4-5.0) 12/07/18 06:30 Assessment/Plan ASSESSMENT: 1. COPD exacerbation with recent history of acute bronchitis/COPD exacerbation, resolving 2. CAD with history of sub-endocardial ischemia angina pectoris 3. Diastolic LV dysfunction with class 0 NYHA classification LV failure 4. HTN 5. DM 6. Hypercholesterolemia 7. Hypothyroidism 8. Peripheral diabetic neuropathy PLAN: 1. Continue Coreg 2. Continue Ramipril 3. Continue Lipitor 4. Continue ASA 5. Continue antibiotics, bronchodilators and steroids taper as per pulmonary service Jameson Tinoco MD
[2018-12-07] MEDS ORDERED: INSULIN (NOVOLOG) ASPART 100 UNITS/ML 10ML VIAL ONE (17:15)
[2018-12-07] MEDS: MONTELUKAST NA 10 MG TABLET PO SCH (21:49)
[2018-12-07] MEDS: ATORVASTATIN CA 20 MG TABLET (FP) PO SCH (21:49)
[2018-12-08] MEDS: metFORMIN HCL 500 MG TABLET (FP) PO SCH ×2 (06:47→17:27)
[2018-12-08] MEDS: LEVOTHYROXINE NA 125 MCG TABLET (FP) PO SCH (06:47)
[2018-12-08] MEDS: glipiZIDE 5 MG TABLET (FP) PO SCH ×2 (06:47→17:27)
[2018-12-08] MEDS: INSULIN SLIDING SCALE (NOVOLOG) 1 VIAL SQ SCH ×3 (06:47→17:06)
[2018-12-08] MEDS: sitaGLIPtin PHOSPHATE 100 MG TABLET (FP) PO SCH (06:47)
[2018-12-08] MEDS: methylPREDNISolone NA SUCC 40 MG/1 ML VIAL IVPUSH SCH ×2 (06:47→21:46)
[2018-12-08] MEDS: ALBUTEROL SO4 2.5/IPRATROPIUM 0.5 INH SOL 3 ML VIAL.NEB. NEB PRN ×3 (07:57→20:45)
[2018-12-08] MEDS ORDERED: PT OWN MED DRAWER 7, Y5N ONE ×2 (09:16→11:33)
[2018-12-08] MEDS: CHOLECALCIFEROL (VITAMIN D3) 1,000 UNIT TABLET (FP) PO SCH (09:36)
[2018-12-08] MEDS: ASPIRIN COATED 81 MG TABLET.EC PO SCH (09:36)
[2018-12-08] MEDS: CARVEDILOL 6.25 MG TABLET (FP) PO SCH ×2 (09:37→21:46)
[2018-12-08] MEDS: PANTOPRAZOLE 40 MG TABLET (FP) PO SCH (09:37)
[2018-12-08] MEDS: GABAPENTIN 300 MG CAPSULE (FP) PO SCH ×2 (09:37→21:46)
[2018-12-08] MEDS: RAMIPRIL 2.5 MG CAPSULE (FP) PO SCH (09:38)
[2018-12-08] MEDS: BUDESONIDE/FORMETEROL FUMARATE 160/4.5 mcg INHALER IH SCH ×2 (09:38→21:48)
[2018-12-08] MEDS: ACETAMINOPHEN 325 MG TABLET (FP) PO PRN (09:40)
--- NOTE | 2018-12-08 10:04 | PN ---
Progress Note (short form) - Note Progress Note: Chief Complaint: Events noted, notes reviewed, denies any chest pain, dyspnea persists but improved, reports persistent cough History of Present Illness: Seen and examined. Events noted, notes reviewed, denies any chest pain, dyspnea persists but improved, reports persistent cough Echocardiography 08/29/2018 Normal LV size and function/LVEF 60-65%, mild LVH, grade 2 diastolic dysfunction with elevated filling pressure, mild AR, mild MR, mild TR, mild MS Echocardiography 08/11/16 revealed normal LV size and function, mild MR, AR and TR, MAC and AV sclerosis - Current Medication List Current Medications Acetaminophen (Tylenol -) 650 mg PO Q6H PRN PRN Reason: HEADACHE Last Admin: 12/08/18 09:40 Dose: 650 mg Albuterol/Ipratropium (Duoneb -) 1 amp NEB Q4H PRN PRN Reason: SHORTNESS OF BREATH Last Admin: 12/08/18 07:57 Dose: 1 amp Aspirin (Ecotrin -) 81 mg PO DAILY [facility] Last Admin: 12/08/18 09:36 Dose: 81 mg Atorvastatin Calcium (Lipitor -) 20 mg PO HS [facility] Last Admin: 12/07/18 21:49 Dose: 20 mg Budesonide/Formoterol Fumarate (Symbicort 160/4.5mcg -) 1 puff IH BID [facility] Last Admin: 12/08/18 09:38 Dose: 1 puff Carvedilol (Coreg -) 6.25 mg PO BID [facility] Last Admin: 12/08/18 09:37 Dose: 6.25 mg Cholecalciferol (Vitamin D3 -) 3,000 unit PO DAILY [facility] Last Admin: 12/08/18 09:36 Dose: 3,000 unit Gabapentin (Neurontin -) 300 mg PO BID [facility] Last Admin: 12/08/18 09:37 Dose: 300 mg Glipizide (Glucotrol -) 5 mg PO BIDAC [facility] Last Admin: 12/08/18 06:47 Dose: 5 mg Heparin Sodium (Porcine) (Heparin -) 5,000 unit SQ BID [facility] Last Admin: 12/07/18 21:49 Dose: Not Given Levofloxacin (Levaquin 500 Mg Premixed Ivpb -) 500 mg in 100 mls @ 100 mls/hr IVPB DAILY [facility]; Protocol Last Admin: 12/08/18 09:39 Dose: 100 mls/hr Insulin Aspart (Novolog Vial Sliding Scale -) 1 vial SQ TIDAC [facility]; Protocol Last Admin: 12/08/18 06:47 Dose: 3 units Levothyroxine Sodium (Synthroid -) 125 mcg PO DAILY@0700 [facility] Last Admin: 12/08/18 06:47 Dose: 125 mcg Metformin HCl (Glucophage -) 500 mg PO BIDAC [facility] Last Admin: 12/08/18 06:47 Dose: 500 mg Methylprednisolone Sodium Succinate (Solu-Medrol -) 40 mg IVPUSH Q8H [facility] Last Admin: 12/08/18 06:47 Dose: 40 mg Montelukast Sodium (Singulair -) 10 mg PO HS [facility] Last Admin: 12/07/18 21:49 Dose: 10 mg Non-Formulary Medication (Benzonatate [Benzonatate]) 200 mg PO DAILY [facility] Non-Formulary Medication (Memantine Hcl [Namenda Xr]) 14 mg PO DAILY [facility] Non-Formulary Medication (Olopatadine Hcl [Pazeo]) 1 drop OU DAILY [facility] Pantoprazole Sodium (Protonix -) 40 mg PO DAILY [facility] Last Admin: 12/08/18 09:37 Dose: 40 mg Ramipril (Altace -) 2.5 mg PO DAILY [facility] Last Admin: 12/08/18 09:38 Dose: 2.5 mg Sitagliptin Phosphate (Januvia -) 100 mg PO DAILY@0700 [facility] Last Admin: 12/08/18 06:47 Dose: 100 mg - Objective Vital Signs: Last Vital Signs Temp Pulse Resp BP Pulse Ox 98.6 F 60 20 95/48 L 95 12/08/18 06:00 12/08/18 06:00 12/08/18 06:00 12/08/18 06:00 12/07/18 21:00 Intake & Output 12/05/18 12/06/18 12/07/18 12/08/18 23:59 23:59 23:59 23:59 Intake Total 500 1050 200 Balance 500 1050 200 Weight 165 lb Neck: Supple Negative JVD No bruit Cardiovascular: S1 S2 Regular Rate and Rhythm Grade 1-2/6 JING Respiratory: Diminished Breath Sounds at the Bases Gastrointestinal: Soft Benign Normal Bowel Sounds Ext: No Edema Labs: CBC, BMP 12/07/18 06:30 12/07/18 06:30 Assessment/Plan ASSESSMENT: 1. COPD exacerbation with recent history of acute bronchitis/history of ILD, resolving 2. CAD with history of sub-endocardial ischemia angina pectoris 3. Diastolic LV dysfunction with class 0 NYHA classification LV failure 4. HTN 5. DM 6. Hypercholesterolemia 7. Hypothyroidism 8. Peripheral diabetic neuropathy PLAN: 1. Continue Coreg 2. Continue Ramipril 3. Continue Lipitor 4. Continue ASA 5. Continue antibiotics, bronchodilators and steroids taper as per primary team Jameson Tinoco MD
[2018-12-08] MEDS: HEPARIN NA (PORCINE) 5,000 UNITS/ML 1ML VIAL SQ SCH ×2 (10:57→21:47)
[2018-12-08] MEDS ORDERED: guaiFENesin 200 MG/10 ML 10 ML UNIT-DOSE CUPS PO PRN (10:58)
--- NOTE | 2018-12-08 11:01 | PN ---
Progress Note (short form) - Note Progress Note: pt seen/ examined. feels better still coughing though Vital Signs Temp 98.6 F 12/08/18 06:00 Pulse 60 12/08/18 06:00 Resp 20 12/08/18 06:00 BP 95/48 L 12/08/18 06:00 Pulse Ox 95 12/07/18 21:00 Intake & Output 12/07/18 12/07/18 12/08/18 11:59 23:59 11:59 Intake Total 300 750 200 Balance 300 750 200 Intake: IVPB 100 Oral 300 650 200 Other: Voiding Method Toilet Toilet Toilet # Unmeasured Voids Void 2 3 2 Bowel Movement No Active Medications Acetaminophen (Tylenol -) 650 mg PO Q6H PRN PRN Reason: HEADACHE Albuterol/Ipratropium (Duoneb -) 1 amp NEB Q4H PRN PRN Reason: SHORTNESS OF BREATH Last Admin: 12/07/18 06:40 Dose: 1 amp Aspirin (Ecotrin -) 81 mg PO DAILY [facility] Atorvastatin Calcium (Lipitor -) 20 mg PO HS [facility] Last Admin: 12/06/18 21:49 Dose: 20 mg Budesonide/Formoterol Fumarate (Symbicort 160/4.5mcg -) 1 puff IH BID [facility] Last Admin: 12/06/18 21:47 Dose: 1 puff Carvedilol (Coreg -) 6.25 mg PO BID [facility] Last Admin: 12/06/18 21:48 Dose: 6.25 mg Cholecalciferol (Vitamin D3 -) 3,000 unit PO DAILY [facility] Gabapentin (Neurontin -) 300 mg PO BID [facility] Last Admin: 12/06/18 21:48 Dose: 300 mg Glipizide (Glucotrol -) 5 mg PO BIDAC [facility] Last Admin: 12/07/18 06:51 Dose: 5 mg Heparin Sodium (Porcine) (Heparin -) 5,000 unit SQ BID [facility] Last Admin: 12/06/18 21:49 Dose: Not Given Levofloxacin (Levaquin 500 Mg Premixed Ivpb -) 500 mg in 100 mls @ 100 mls/hr IVPB DAILY [facility]; Protocol Insulin Aspart (Novolog Vial Sliding Scale -) 1 vial SQ TIDAC [facility]; Protocol Last Admin: 12/07/18 06:52 Dose: 3 units Levothyroxine Sodium (Synthroid -) 125 mcg PO DAILY@0700 [facility] Last Admin: 12/07/18 06:51 Dose: 125 mcg Metformin HCl (Glucophage -) 500 mg PO BIDAC [facility] Last Admin: 12/07/18 06:51 Dose: 500 mg Methylprednisolone Sodium Succinate (Solu-Medrol -) 40 mg IVPUSH Q6H-IV [facility] Last Admin: 12/07/18 04:00 Dose: 40 mg Montelukast Sodium (Singulair -) 10 mg PO HS [facility] Last Admin: 12/06/18 21:48 Dose: 10 mg Non-Formulary Medication (Benzonatate [Benzonatate]) 200 mg PO DAILY [facility] Non-Formulary Medication (Memantine Hcl [Namenda Xr]) 14 mg PO DAILY [facility] Non-Formulary Medication (Olopatadine Hcl [Pazeo]) 1 drop OU DAILY [facility] Pantoprazole Sodium (Protonix -) 40 mg PO DAILY [facility] Ramipril (Altace -) 2.5 mg PO DAILY [facility] Sitagliptin Phosphate (Januvia -) 100 mg PO DAILY@0700 [facility] Last Admin: 12/07/18 06:51 Dose: 100 mg CBC, BMP 12/07/18 06:30 12/07/18 06:30 Physical Examination Constitutional: Yes: No Distress, Calm Eyes: Yes: Conjunctiva Clear HENT: Yes: WNL Neck: Yes: Supple. no jvd. Cardiovascular: Yes: Regular Rate and Rhythm Respiratory: Yes: Poor Air Entry, Rhonchi-- better Gastrointestinal: Yes: Soft Edema: No Neurological: Yes: Alert Imaging - Results Chest X-ray: Report Reviewed EKG: Report Reviewed Assessment/Plan Better Short course of steroids-- taper abx Nebulizer treatment Elevated troponins-- Chronic ekg- ok Cardiology/ pulmonary consults appreciated gi/ dvt prophylaxis monitor bp/ bgm robitussin prn will follow if better - anticipate d/c in am Problem List - Problems (1) Troponin I above reference range Code(s): R74.8 - ABNORMAL LEVELS OF OTHER SERUM ENZYMES (2) COPD exacerbation Code(s): J44.1 - CHRONIC OBSTRUCTIVE PULMONARY DISEASE W (ACUTE) EXACERBATION (3) Cough Code(s): R05 - COUGH (4) Diabetes Code(s): E11.9 - TYPE 2 DIABETES MELLITUS WITHOUT COMPLICATIONS Qualifiers: Diabetes mellitus type: type 2 Diabetes mellitus termite helper insulin use: without termite helper use Diabetes mellitus complication status: without complication Qualified Code(s): E11.9 - Type 2 diabetes mellitus without complications (5) Reactive airway disease Code(s): J45.909 - UNSPECIFIED ASTHMA, UNCOMPLICATED Qualifiers: Asthma severity: mild intermittent
--- NOTE | 2018-12-08 12:23 | PN ---
Progress Note (short form) - Note Progress Note: PULMONARY APPEARS COMFORTABLE COUGH CONTINUES ANICTERIC BILATERAL CRACKLES/RHONCHI S1S2 BS+ NO EDEMA LABS/MEDS/NOTES/IMAGES REVIEWED A/E COPD SECONDARY TO ACUTE BRONCHITIS SUPERIMPOSED UPON ILD (HAS HOME O2) HTN/DM/HPL BREAST CA S/P LEFT MASTECTOMY O2 SUPPLEMENTATION IV ANTIBIOTICS IV STEROIDS TO TAPER BRONCHODILATORS GLYCEMIC CONTROL DVT PROPHYLAXSIS R KIRBY RATLIFF Problem List - Problems (1) COPD exacerbation Code(s): J44.1 - CHRONIC OBSTRUCTIVE PULMONARY DISEASE W (ACUTE) EXACERBATION (2) Cough Code(s): R05 - COUGH (3) Diabetes Code(s): E11.9 - TYPE 2 DIABETES MELLITUS WITHOUT COMPLICATIONS Qualifiers: Diabetes mellitus type: type 2 Diabetes mellitus retirement insulin use: without petroleum terminal 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 Diabetes mellitus complication status: without complication Qualified Code(s): E11.9 - Type 2 diabetes mellitus without complications (4) Exogenous obesity Code(s): E66.9 - OBESITY, UNSPECIFIED (5) Hypertension Code(s): I10 - ESSENTIAL (PRIMARY) HYPERTENSION Qualifiers: Hypertension type: essential hypertension Qualified Code(s): I10 - Essential (primary) hypertension (6) Hypothyroidism Code(s): E03.9 - HYPOTHYROIDISM, UNSPECIFIED Qualifiers: Hypothyroidism type: unspecified Qualified Code(s): E03.9 - Hypothyroidism , unspecified (7) Interstitial lung disease Code(s): J84.9 - INTERSTITIAL PULMONARY DISEASE, UNSPECIFIED
[2018-12-08] MEDS ORDERED: INSULIN (NOVOLOG) ASPART 100 UNITS/ML 10ML VIAL ONE (21:21)
[2018-12-08] MEDS: ATORVASTATIN CA 20 MG TABLET (FP) PO SCH (21:46)
[2018-12-08] MEDS: MONTELUKAST NA 10 MG TABLET PO SCH (21:46)
[2018-12-09] MEDS: ACETAMINOPHEN 325 MG TABLET (FP) PO PRN (05:40)
[2018-12-09] MEDS: INSULIN SLIDING SCALE (NOVOLOG) 1 VIAL SQ SCH ×2 (06:45→12:12)
[2018-12-09] MEDS: metFORMIN HCL 500 MG TABLET (FP) PO SCH (06:45)
[2018-12-09] MEDS: glipiZIDE 5 MG TABLET (FP) PO SCH (06:45)
[2018-12-09] MEDS: LEVOTHYROXINE NA 125 MCG TABLET (FP) PO SCH (06:45)
[2018-12-09] MEDS: sitaGLIPtin PHOSPHATE 100 MG TABLET (FP) PO SCH (06:45)
[2018-12-09] MEDS ORDERED: INSULIN (NOVOLOG) ASPART 100 UNITS/ML 10ML VIAL ONE (07:03)
[2018-12-09] MEDS: ALBUTEROL SO4 2.5/IPRATROPIUM 0.5 INH SOL 3 ML VIAL.NEB. NEB PRN (07:30)
[2018-12-09] MEDS ORDERED: PT OWN MED DRAWER 7, Y5N ONE (09:32)
[2018-12-09] MEDS: PANTOPRAZOLE 40 MG TABLET (FP) PO SCH (09:37)
[2018-12-09] MEDS: methylPREDNISolone NA SUCC 40 MG/1 ML VIAL IVPUSH SCH (09:37)
[2018-12-09] MEDS: ASPIRIN COATED 81 MG TABLET.EC PO SCH (09:37)
[2018-12-09] MEDS: CARVEDILOL 6.25 MG TABLET (FP) PO SCH (09:37)
[2018-12-09] MEDS: GABAPENTIN 300 MG CAPSULE (FP) PO SCH (09:37)
[2018-12-09] MEDS: CHOLECALCIFEROL (VITAMIN D3) 1,000 UNIT TABLET (FP) PO SCH (09:37)
[2018-12-09] MEDS: HEPARIN NA (PORCINE) 5,000 UNITS/ML 1ML VIAL SQ SCH (09:38)
[2018-12-09] MEDS: RAMIPRIL 2.5 MG CAPSULE (FP) PO SCH (09:38)
[2018-12-09] MEDS: BUDESONIDE/FORMETEROL FUMARATE 160/4.5 mcg INHALER IH SCH (09:39)
--- NOTE | 2018-12-09 10:37 | PN ---
Progress Note, Physician Chief Complaint: Events noted Complains of dyspnea intermittently and cough History of Present Illness: Patient was seen and examined. Awake and alert. Chart was reviewed Denies chest pain or palpitations As outlined - Current Medication List Current Medications: Active Medications Acetaminophen (Tylenol -) 650 mg PO Q6H PRN PRN Reason: HEADACHE Last Admin: 12/09/18 05:40 Dose: 650 mg Albuterol/Ipratropium (Duoneb -) 1 amp NEB Q4H PRN PRN Reason: SHORTNESS OF BREATH Last Admin: 12/09/18 07:30 Dose: 1 amp Aspirin (Ecotrin -) 81 mg PO DAILY [facility] Last Admin: 12/09/18 09:37 Dose: 81 mg Atorvastatin Calcium (Lipitor -) 20 mg PO HS [facility] Last Admin: 12/08/18 21:46 Dose: 20 mg Budesonide/Formoterol Fumarate (Symbicort 160/4.5mcg -) 1 puff IH BID [facility] Last Admin: 12/09/18 09:39 Dose: 1 puff Carvedilol (Coreg -) 6.25 mg PO BID [facility] Last Admin: 12/09/18 09:37 Dose: 6.25 mg Cholecalciferol (Vitamin D3 -) 3,000 unit PO DAILY [facility] Last Admin: 12/09/18 09:37 Dose: 3,000 unit Gabapentin (Neurontin -) 300 mg PO BID [facility] Last Admin: 12/09/18 09:37 Dose: 300 mg Glipizide (Glucotrol -) 5 mg PO BIDAC [facility] Last Admin: 12/09/18 06:45 Dose: 5 mg Guaifenesin (Robitussin -) 10 ml PO Q6H PRN PRN Reason: COUGH Last Admin: 12/08/18 11:41 Dose: 10 ml Heparin Sodium (Porcine) (Heparin -) 5,000 unit SQ BID [facility] Last Admin: 12/09/18 09:38 Dose: 5,000 unit Levofloxacin (Levaquin 500 Mg Premixed Ivpb -) 500 mg in 100 mls @ 100 mls/hr IVPB DAILY [facility]; Protocol Last Admin: 12/09/18 09:40 Dose: 100 mls/hr Insulin Aspart (Novolog Vial Sliding Scale -) 1 vial SQ TIDAC [facility]; Protocol Last Admin: 12/09/18 06:45 Dose: 3 units Levothyroxine Sodium (Synthroid -) 125 mcg PO DAILY@0700 [facility] Last Admin: 12/09/18 06:45 Dose: 125 mcg Metformin HCl (Glucophage -) 500 mg PO BIDAC [facility] Last Admin: 12/09/18 06:45 Dose: 500 mg Methylprednisolone Sodium Succinate (Solu-Medrol -) 40 mg IVPUSH BID [facility] Last Admin: 12/09/18 09:37 Dose: 40 mg Montelukast Sodium (Singulair -) 10 mg PO HS [facility] Last Admin: 12/08/18 21:46 Dose: 10 mg Non-Formulary Medication (Benzonatate [Benzonatate]) 200 mg PO DAILY [facility] Non-Formulary Medication (Memantine Hcl [Namenda Xr]) 14 mg PO DAILY [facility] Non-Formulary Medication (Olopatadine Hcl [Pazeo]) 1 drop OU DAILY [facility] Pantoprazole Sodium (Protonix -) 40 mg PO DAILY [facility] Last Admin: 12/09/18 09:37 Dose: 40 mg Ramipril (Altace -) 2.5 mg PO DAILY [facility] Last Admin: 12/09/18 09:38 Dose: 2.5 mg Sitagliptin Phosphate (Januvia -) 100 mg PO DAILY@0700 [facility] Last Admin: 12/09/18 06:45 Dose: 100 mg - Objective Vital Signs: Vital Signs Temperature 98.2 F 12/09/18 05:48 Pulse Rate 63 12/09/18 05:48 Respiratory Rate 20 12/09/18 05:48 Blood Pressure 111/56 L 12/09/18 05:48 O2 Sat by Pulse Oximetry (%) 95 12/08/18 21:00 Eyes: Yes: PERRL HENT: Yes: Atraumatic Neck: Yes: Supple Cardiovascular: Yes: Regular Rate and Rhythm, Murmur (SM), S1, S2 Respiratory: Yes: Diminished Gastrointestinal: Yes: Normal Bowel Sounds, Soft. No: Tenderness Edema: No Problem List - Problems (1) COPD exacerbation Code(s): J44.1 - CHRONIC OBSTRUCTIVE PULMONARY DISEASE W (ACUTE) EXACERBATION (2) Diabetes Code(s): E11.9 - TYPE 2 DIABETES MELLITUS WITHOUT COMPLICATIONS Qualifiers: Diabetes mellitus type: type 2 Diabetes mellitus district sales leader insulin use: without district sales leader use Diabetes mellitus complication status: without complication Qualified Code(s): E11.9 - Type 2 diabetes mellitus without complications (3) Hypercholesterolemia Code(s): E78.0 - PURE HYPERCHOLESTEROLEMIA * DO NOT USE * (4) Hypertension Code(s): I10 - ESSENTIAL (PRIMARY) HYPERTENSION Qualifiers: Hypertension type: essential hypertension Qualified Code(s): I10 - Essential (primary) hypertension (5) Hypothyroidism Code(s): E03.9 - HYPOTHYROIDISM, UNSPECIFIED Qualifiers: Hypothyroidism type: unspecified Qualified Code(s): E03.9 - Hypothyroidism , unspecified (6) Subendocardial ischemia Code(s): I24.8 - OTHER FORMS OF ACUTE ISCHEMIC HEART DISEASE Assessment/Plan 1. COPD exacerbation with recent history of acute bronchitis/history of ILD 2. CAD with history of sub-endocardial ischemia, angina pectoris 3. Diastolic LV dysfunction with class 0 NYHA classification LV failure 4. HTN 5. DM 6. Hypercholesterolemia 7. Hypothyroidism 8. Peripheral diabetic neuropathy PLAN: 1. Continue Coreg and Ramipril 2. Continue Lipitor 3. Continue ASA 4. Continue antibiotics, bronchodilators and steroids taper as tolerated Further plans are to follow Jackson Purvis MD
[2018-12-09 10:38] VITALS: BP 122/65; PULSE 84; TEMP 98.5
--- NOTE | 2018-12-09 12:09 | PN ---
Progress Note (short form) - Note Progress Note: PULMONARY States breathing better today. Less cough and wheezing. Vital Signs Period Temp Pulse Resp BP Sys/[place] Pulse Ox Last 24 Hr 98.2 F-98.5 F 63-84 20-22 111-122/55-65 95 Gen: NAD at rest Heart: RRR Lung: decreased breath sounds at the bases Abd: soft, nontender Ext: no edema CBC, BMP 12/07/18 06:30 12/07/18 06:30 Active Medications Acetaminophen (Tylenol -) 650 mg PO Q6H PRN PRN Reason: HEADACHE Last Admin: 12/09/18 05:40 Dose: 650 mg Albuterol/Ipratropium (Duoneb -) 1 amp NEB Q4H PRN PRN Reason: SHORTNESS OF BREATH Last Admin: 12/09/18 07:30 Dose: 1 amp Aspirin (Ecotrin -) 81 mg PO DAILY [facility] Last Admin: 12/09/18 09:37 Dose: 81 mg Atorvastatin Calcium (Lipitor -) 20 mg PO HS [facility] Last Admin: 12/08/18 21:46 Dose: 20 mg Budesonide/Formoterol Fumarate (Symbicort 160/4.5mcg -) 1 puff IH BID [facility] Last Admin: 12/09/18 09:39 Dose: 1 puff Carvedilol (Coreg -) 6.25 mg PO BID [facility] Last Admin: 12/09/18 09:37 Dose: 6.25 mg Cholecalciferol (Vitamin D3 -) 3,000 unit PO DAILY [facility] Last Admin: 12/09/18 09:37 Dose: 3,000 unit Gabapentin (Neurontin -) 300 mg PO BID [facility] Last Admin: 12/09/18 09:37 Dose: 300 mg Glipizide (Glucotrol -) 5 mg PO BIDAC [facility] Last Admin: 12/09/18 06:45 Dose: 5 mg Guaifenesin (Robitussin -) 10 ml PO Q6H PRN PRN Reason: COUGH Last Admin: 12/08/18 11:41 Dose: 10 ml Heparin Sodium (Porcine) (Heparin -) 5,000 unit SQ BID [facility] Last Admin: 12/09/18 09:38 Dose: 5,000 unit Levofloxacin (Levaquin 500 Mg Premixed Ivpb -) 500 mg in 100 mls @ 100 mls/hr IVPB DAILY [facility]; Protocol Last Admin: 12/09/18 09:40 Dose: 100 mls/hr Insulin Aspart (Novolog Vial Sliding Scale -) 1 vial SQ TIDAC [facility]; Protocol Last Admin: 12/09/18 06:45 Dose: 3 units Levothyroxine Sodium (Synthroid -) 125 mcg PO DAILY@0700 [facility] Last Admin: 12/09/18 06:45 Dose: 125 mcg Metformin HCl (Glucophage -) 500 mg PO BIDAC [facility] Last Admin: 12/09/18 06:45 Dose: 500 mg Methylprednisolone Sodium Succinate (Solu-Medrol -) 40 mg IVPUSH BID [facility] Last Admin: 12/09/18 09:37 Dose: 40 mg Montelukast Sodium (Singulair -) 10 mg PO HS [facility] Last Admin: 12/08/18 21:46 Dose: 10 mg Non-Formulary Medication (Benzonatate [Benzonatate]) 200 mg PO DAILY [facility] Non-Formulary Medication (Memantine Hcl [Namenda Xr]) 14 mg PO DAILY [facility] Non-Formulary Medication (Olopatadine Hcl [Pazeo]) 1 drop OU DAILY [facility] Pantoprazole Sodium (Protonix -) 40 mg PO DAILY [facility] Last Admin: 12/09/18 09:37 Dose: 40 mg Ramipril (Altace -) 2.5 mg PO DAILY [facility] Last Admin: 12/09/18 09:38 Dose: 2.5 mg Sitagliptin Phosphate (Januvia -) 100 mg PO DAILY@0700 [facility] Last Admin: 12/09/18 06:45 Dose: 100 mg A/P Acute COPD Exacerbation CAD LV Diastolic Dysfunction HTN DM Hypothyroidism Hypercholesterolemia - can change steroids to PO prednisone 40mg daily and taper as outpt - inhaled bronchodilators - O2 as needed - complete antibiotics - DVT prophylaxis
--- NOTE | 2018-12-09 12:19 | DS ---
Physical Examination Vital Signs: Vital Signs Temperature 98.5 F 12/09/18 10:00 Pulse Rate 84 12/09/18 10:00 Respiratory Rate 20 12/09/18 10:00 Blood Pressure 122/65 12/09/18 10:00 O2 Sat by Pulse Oximetry (%) 95 12/08/18 21:00 Findings/Remarks: Feels much better no complains afebrile Constitutional: Yes: No Distress, Calm Eyes: Yes: Conjunctiva Clear Neck: Yes: Supple Cardiovascular: Yes: Regular Rate and Rhythm Respiratory: Yes: Rhonchi (few - scattered) Gastrointestinal: Yes: Soft Edema: No Neurological: Yes: Alert Psychiatric: Yes: Alert Labs: CBC, BMP 12/07/18 06:30 12/07/18 06:30 Discharge Summary Reason For Visit: ACUTE EXACERBATION OF COPD Current Active Problems COPD exacerbation (Acute) Troponin I above reference range (Acute) Hospital Course: admitted for copd exac much better with steroids/ abx stable for d/c on po steroids pt in agreement f/u in office in 2 weeks meds reconcilled prescribed as needed discussed with nursing staff as well as also Condition: Stable - Instructions Disposition: HOME - Home Medications Comprehensive Discharge Medication List: Ambulatory Orders Levothyroxine Sodium [Levo-T] 125 mcg PO DAILY 08/10/16 Memantine HCl [Namenda Xr] 14 mg PO DAILY 08/10/16 Albuterol 2.5/Ipratropium 0.5 [Duoneb -] 1 amp NEB Q4H PRN #0 amp 08/14/16 Gabapentin [Neurontin -] 300 mg PO BID capsule 08/14/16 Albuterol 0.083% Nebulizer Zehra [Ventolin 0.083% Nebulizer Soln -] 1 amp NEB Q4H PRN #0 amp 09/04/16 Aspirin Coated [Ecotrin -] 81 mg PO DAILY tablet.ec 09/04/16 Ramipril [Altace] 2.5 mg PO DAILY #30 capsule 09/04/16 Benzonatate 200 mg PO DAILY 06/18/17 Carvedilol 6.25 mg PO BID 06/18/17 Cholecalciferol (Vitamin D3) [Vitamin D3 -] 3,000 unit PO DAILY 06/18/17 Olopatadine HCl [Pazeo] 1 drop OU DAILY 06/18/17 Simvastatin 40 mg PO DAILY 06/18/17 Sitagliptin Phosphate [Januvia] 100 mg PO DAILY 06/18/17 Glipizide/Metformin HCl [Glipizide-Metformin 5-500 mg] 1 each PO BID 06/19/17 Budesonide/Formeterol Fumarate [SYMBICORT 160/4.5mcg -] 1 inh PO BID 10/01/18 Montelukast Sodium [Singulair] 10 mg PO DAILY 10/01/18 Acetaminophen [Tylenol .Regular Strength -] 650 mg PO Q6H PRN tablet 12/09/18 Guaifenesin [Robitussin -] 10 ml PO Q6H PRN cup 12/09/18 Methylprednisolone Na Succ [Solu-Medrol -] 40 mg IVPUSH BID vial 12/09/18 Methylprednisolone Na Succ [Solu-Medrol -] 40 mg IVPUSH Q8H vial 12/09/18 Pantoprazole Sodium [Protonix -] 40 mg PO DAILY 30 Days #30 tablet.ec 12/09/18 Prednisone 10 mg PO DAILY #30 tablet 12/09/18
== END 2018-12-09 15:04 | disposition home or self-care (01) | DRG 191 ==
LOC: JER 08:08 → SUPCPDRO 08:08 → JERBED 11:17 → OBSVTOIN 12:02 → J5S 13:46
PROVIDERS: ADMIT Internal Medicine; ATTEND Internal Medicine
DX: J44.1 Chronic obstructive pulmonary disease with (acute) exacerbation (principal); J84.9 Interstitial pulmonary disease, unspecified; I24.8 Other forms of acute ischemic heart disease; I10 Essential (primary) hypertension; E78.5 Hyperlipidemia, unspecified; E11.9 Type 2 diabetes mellitus without complications; E03.9 Hypothyroidism, unspecified; E11.40 Type 2 diabetes mellitus with diabetic neuropathy, unspecified; G47.30 Sleep apnea, unspecified; R74.8 Abnormal levels of other serum enzymes; E66.09 Other obesity due to excess calories; Z68.38 Body mass index [BMI] 38.0-38.9, adult; I25.119 Atherosclerotic heart disease of native coronary artery with unspecified angina pectoris; Z85.3 Personal history of malignant neoplasm of breast; Z99.81 Dependence on supplemental oxygen
CPT/HCPCS: 36415; 71045-TC-FY; 80053; 80061; 82550; 82553; 82962; 83036; 83721; 83880; 84443; 84484; 85025; 93005; 93010; 94640; 99283-25; G0378; J1644

== ENCOUNTER 2019-02-22 09:15 | Emergency (ER) | payer OTHER ==
[2019-02-22 09:22] VITALS: TEMP 98.7; BMI 38.3
--- NOTE | 2019-02-22 09:33 | PDOC ---
History of Present Illness - General Chief Complaint: Edema Stated Complaint: EDEMA Time Seen by Provider: 02/22/19 09:32 History Source: Patient Exam Limitations: Other (poor historian) - History of Present Illness Initial Comments: Pt is a 73 yo F, with PMH of HTN, HLD, DM, COPD/HARISH (on 2 L NC), and breast CA ( L mastectomy, no chemo/radiation), who is presenting with complaints of worsening b/l pedal swelling. Pt states she has noticed more recent swelling ( unsure of timeline), but says last night she noticed her feet seemed heavier than usual and did not have as much sensation in the bottoms of her feet as usual. Pt states her cough and breathing have been at baseline, with no need to use more oxygen at home. Pt denies any recent fevers/chills, headache, vision changes, syncope, chest pain, palpitations, SOB, nausea/vomiting, abdominal pain , urinary symptoms, diarrhea/constipation. Pt had no recent travel/surgeries/bedrest, estrogen medications, and has no history of clots. Allergies: NKDA PCP: Dr. Ronit Erazo Pulm: pt unsure, but has seen Dr. Viramontes in the past. Social: Pt denies any cigarette, alcohol, or drug use. Pt denies any recent travel or sick contacts. Surgical: no relevant history. Family: no relevant history. 02/22/19 10:24 Past History - Travel Traveled outside of the country in the last 30 days: No Close contact w/someone who was outside of country & ill: No - Past Medical History Allergies/Adverse Reactions: Allergies Allergy/AdvReac Type Severity Reaction Status Date / Time No Known Allergies Allergy Verified 02/22/19 09:21 Home Medications: Ambulatory Orders Levothyroxine Sodium [Levo-T] 125 mcg PO DAILY 08/10/16 Memantine HCl [Namenda Xr] 14 mg PO DAILY 08/10/16 Albuterol 2.5/Ipratropium 0.5 [Duoneb -] 1 amp NEB Q4H PRN #0 amp 08/14/16 Gabapentin [Neurontin -] 300 mg PO BID capsule 08/14/16 Albuterol 0.083% Nebulizer Zehra [Ventolin 0.083% Nebulizer Soln -] 1 amp NEB Q4H PRN #0 amp 09/04/16 Aspirin Coated [Ecotrin -] 81 mg PO DAILY tablet.ec 09/04/16 Ramipril [Altace] 2.5 mg PO DAILY #30 capsule 09/04/16 Benzonatate 200 mg PO DAILY 06/18/17 Carvedilol 6.25 mg PO BID 06/18/17 Cholecalciferol (Vitamin D3) [Vitamin D3 -] 3,000 unit PO DAILY 06/18/17 Olopatadine HCl [Pazeo] 1 drop OU DAILY 06/18/17 Simvastatin 40 mg PO DAILY 06/18/17 Sitagliptin Phosphate [Januvia] 100 mg PO DAILY 06/18/17 Glipizide/Metformin HCl [Glipizide-Metformin 5-500 mg] 1 each PO BID 06/19/17 Budesonide/Formeterol Fumarate [SYMBICORT 160/4.5mcg -] 1 inh PO BID 10/01/18 Montelukast Sodium [Singulair] 10 mg PO DAILY 10/01/18 Acetaminophen [Tylenol .Regular Strength -] 650 mg PO Q6H PRN tablet 12/09/18 Guaifenesin [Robitussin -] 10 ml PO Q6H PRN cup 12/09/18 Methylprednisolone Na Succ [Solu-Medrol -] 40 mg IVPUSH Q8H vial 12/09/18 Pantoprazole Sodium [Protonix -] 40 mg PO DAILY 30 Days #30 tablet.ec 12/09/18 Prednisone 10 mg PO DAILY #30 tablet 12/09/18 Anemia: No Asthma: Yes Cancer: Yes (LEFT BREAST) Cardiac Disorders: No CVA: No COPD: Yes (USES OXYGEN PRN @ 2l) CHF: No Dementia: (?) Diabetes: Yes (NIDDM) GI Disorders: No Disorders: No HTN: Yes Hypercholesterolemia: Yes Liver Disease: No Seizures: No Thyroid Disease: Yes - Surgical History Abdominal Surgery: No - Immunization History Immunization Up to Date: Yes - Suicide/Smoking/Psychosocial Hx Smoking Status: No Smoking History: Never smoked Have you smoked in the past 12 months: No Number of Cigarettes Smoked Daily: 0 Cigars Per Day: 0 Hx Alcohol Use: No Drug/Substance Use Hx: No Substance Use Type: None Hx Substance Use Treatment: No Review of Systems - Review of Systems Able to Perform ROS?: Yes Is the patient limited Moz[place]ican proficient: No Constitutional: Yes: Weight Stable. No: Chills, Diaphoresis, Fever, Malaise, Weakness HEENTM: No: Blurred Vision, Double Vision, Nose Congestion, Throat Pain, Throat Swelling, Difficulty Swallowing Respiratory: No: Cough, Orthopnea, Shortness of Breath, Productive cough, Hemoptysis Cardiac (ROS): Yes: See HPI, Edema. No: Chest Pain, Irregular Heart Rate, Lightheadedness, Palpitations, Syncope, Chest Tightness ABD/GI: No: Constipated, Diarrhea, Nausea, Poor Appetite, Poor Fluid Intake, Vomiting : No: Burning, Dysuria, Pain, Urgency Musculoskeletal: No: Back Pain, Joint Pain Integumentary: No: Rash Neurological: Yes: See HPI, Numbness. No: Headache, Paresthesia, Weakness, Unsteady Gait, Dizziness Psychiatric: No: Sleep Pattern Change, Change in Appetite Endocrine: No: Increased Urine, Change in Weight Hematologic/Lymphatic: No: Anemia, Blood Clots, Easy Bleeding, Easy Bruising *Physical Exam - Vital Signs Last Vital Signs Temp Pulse Resp BP Pulse Ox 98.7 F 63 18 101/56 L 94 L 02/22/19 09:17 02/22/19 09:17 02/22/19 09:17 02/22/19 09:17 02/22/19 09:17 - Physical Exam Comments: Vitals stable (02 94% on RA, pt baseline), pt afebrile. Pt in NAD, obese body habitus. Pt alert and oriented x3. 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 Sensation equal in both feet. No midline spinal tenderness, step-offs, or crepitus. Head normocephalic, atraumatic. Eyes PERRLA, EOMI. Oropharynx without erythema or exudates, no LAD b/l. No nasal congestion, hearing intact. Clear heart sounds, S1/S2, no JVD, or heart murmur. B/l pedal edema, non- pitting. Coarse breath sounds b/l bases, worse on the L lower base. Mild wheezing and poor air movement throughout. No abdominal or CVA tenderness to palpation, no rebound, no guarding. Abdomen soft, protuberant, and with normoactive bowel sounds. Skin without jaundice or rash. 02/22/19 10:31 02/22/19 10:59 ED Treatment Course - LABORATORY CBC & Chemistry Diagram: 02/22/19 10:10 02/22/19 10:10 Medical Decision Making - Medical Decision Making Pt was seen at bedside, also will be seen by attending Dr. Renee. Pt presenting with complaints of b/l pedal edema which worsened since last night. Pt denies changes to her breathing, chest pain, orthopnea, or medication changes. Will evaluate for new CHF, ACS, electrolyte abnormalities, CHF exacerbation. Ordered work-up including CBC, CMP, cardiac profile, BNP, ECG, chest x-ray. Provided duoneb for improvement of wheezing. Will continue to reassess pt and monitor for symptomatic improvement. ECG: NSR, RBBB and L anterior block (HR 65, ND 162, QRS 128, QTc 428). Mild T wave flattening in V2-V3. No TWIs or significant ST segment changes. No significant changes from prior ECG (12/06/2018). 02/22/19 11:02 CBC and CMP WNL Trop .04, BNP 23 Chest x-ray shows worsening continued congestive changes -- normal BNP, no significant LE edema, trop negative, no electrolyte abnormalities. Considering normal lab results, pt can be discharged to home with follow-up. Pt advised to follow-up with PCP in 1-2 days. Strict return precautions provided with pt understanding. 02/22/19 11:15 02/22/19 11:52 *DC/Admit/Observation/Transfer Diagnosis at time of Disposition: Pedal edema, HARISH (obstructive sleep apnea) COPD (chronic obstructive pulmonary disease) Qualifiers: COPD type: unspecified COPD Qualified Code(s): J44.9 - Chronic obstructive pulmonary disease, unspecified - Discharge Dispostion Disposition: HOME Condition at time of disposition: Good Decision to Admit order: No - Referrals Referrals: Ronit Erazo MD [Primary Care Provider] - - Patient Instructions Printed Discharge Instructions: DI for Peripheral Edema -- Bilateral, DI for Dependent Edema Additional Instructions: You were seen in the ER today for swelling in your feet. The results of your labs today were at your usual levels. Please follow-up with your primary care doctor within 1-2 days to discuss your visit and make sure your symptoms have improved. Please return to the ER if you have any worsening pain or swelling, development of fevers or chills, loss of consciousness, inability to tolerate food or fluids, or any other concerns. Please continue to wear your orthotic shoes and put your feet up as you are resting. Print Language: ALGERIAN - Post Discharge Activity
[2019-02-22] MEDS ORDERED: ALBUTEROL SO4 2.5/IPRATROPIUM 0.5 INH SOL 3 ML VIAL.NEB. NEB ONE ×2 (09:57→10:17)
[2019-02-22 10:59] LABS: ALBUMIN 3.5 g/dl (3.4-5.0); BILIRUBIN,TOTAL 0.6 mg/dL (0.2-1); BLOOD UREA NITROGEN 12.9 mg/dL (7-18); CALCIUM 9.1 mg/dL (8.5-10.1); CREATININE 0.7 mg/dL (0.55-1.3); N-TERMINAL BNP 23.1 pg/ml (5-125); POTASSIUM 3.9 mmol/L (3.5-5.1); TOT PROT 7.7 g/dl (6.4-8.2)
[2019-02-22 11:00] LABS: BASO % 0.8 % (0-2.0); EOS % 4.6 % (0-4.5); HEMATOCRIT 39.3 % (32.4-45.2); HEMOGLOBIN 13.1 GM/dL (10.7-15.3); LYMPH % 23.2 % (8-40); MCH 27.4 pg (25.7-33.7); MCHC 33.3 g/dl (32.0-36.0); MEAN CELL VOLUME 82.3 fl (80-96); MEAN PLT VOLUME 9.4 fl (7.5-11.1); NEUT % 64.4 % (42.8-82.8); PLATELET COUNT 218 K/MM3 (134-434); RBC 4.77 M/mm3 (3.60-5.2); RDW 15.7 % (11.6-15.6); WHITE BLOOD COUNT 6.6 K/mm3 (4.0-10.0)
[2019-02-22 11:28] LABS: PH,URINE 6.5 (5.0-8.0); URINE APPEARANCE CLEAR; URINE BILIRUBIN NEGATIVE (NEGATIVE); URINE COLOR YELLOW; URINE GLUCOSE (UA) NEGATIVE (NEGATIVE); URINE KETONE NEGATIVE (NEGATIVE); URINE LEUK ESTERASE NEGATIVE (NEGATIVE); URINE NITRITE NEGATIVE (NEGATIVE); URINE PROTEIN NEGATIVE (NEGATIVE)
[2019-02-22 12:12] VITALS: BP 103/49; PULSE 55
--- NOTE | 2019-02-22 14:12 | PDOC ---
Documentation entered by Cathy Schroeder SCRIBE, acting as scribe for Evelyne Renee MD. Evelyne Renee MD: This documentation has been prepared by the scribe, Cathy Schroeder SCRIBE, under my direction and personally reviewed by me in its entirety. I confirm that the documentation accurately reflects all work, treatment, procedures, and medical decision making performed by me. Attending Attestation - Resident Resident Name: Nati Main - HPI HPI: 02/22/19 10:30 The patient is a 73-year-old female with a past medical history significant for HTN, HLD, COPD (on 2L O2), HARISH, L. breast CA s/p Mastectomy presents to the emergency department with worsening leg swelling. The patient reports the swelling has been going on for a while, which worsened last night. The patient states she felt leg heaviness and decided to come in for further evaluation. Denies acute change in shortness of breath, recent changes in medication, cough. - Physicial Exam PE: 02/22/19 11:56 GENERAL: Awake, alert, and fully oriented, in no acute distress LUNGS: +scant wheezing on the right. no crackles EXTREMITIES: +1+ pitting edema to the ankle. - Medical Decision Making 02/22/19 14:10 pt presents to the ED complaining of symmetric bilateral leg swelling without pain. Denies worsening shortness of breath. Denies chest pain. Differential included CHF, renal or liver failure, ACS. Labs are within normal limits. I have discussed purchasing compression stockinggs, eleg elevated with the patient. Patient should follow up with PMD/.
--- NOTE | 2019-02-23 09:05 | EKG ---
Test Reason : Blood Pressure : / mmHG Vent. Rate : 065 BPM Atrial Rate : 065 BPM P-R Int : 162 ms QRS Dur : 128 ms QT Int : 412 ms P-R-T Axes : 022 -51 062 degrees QTc Int : 428 ms NORMAL SINUS RHYTHM RIGHT BUNDLE BRANCH BLOCK LEFT ANTERIOR FASCICULAR BLOCK BIFASCICULAR BLOCK POSSIBLE LATERAL INFARCT (CITED ON OR BEFORE 06-DEC-2018) ABNORMAL ECG WHEN COMPARED WITH ECG OF 06-DEC-2018 08:05, NO SIGNIFICANT CHANGE WAS FOUND Confirmed by MARK GALLAGHER MD ([id number]) on 02/23/2019 9:04:38 AM Referred By: Confirmed By:MARK GALLAGHER MD
== END 2019-02-22 12:11 | disposition home or self-care (01) ==
LOC: JER 09:15
PROC: 3E0F7GC Introduction of Other Therapeutic Substance into Respiratory Tract, Via Natural or Artificial Opening (ICD-10-PCS; principal; 2019-02-22)
DX: J44.9 Chronic obstructive pulmonary disease, unspecified (principal); G47.33 Obstructive sleep apnea (adult) (pediatric); I10 Essential (primary) hypertension; E78.00 Pure hypercholesterolemia, unspecified; E11.9 Type 2 diabetes mellitus without complications; Z79.84 Long term (current) use of oral hypoglycemic drugs; Z85.3 Personal history of malignant neoplasm of breast
CPT/HCPCS: 36415; 71046-TC-FY; 80053; 81003; 82550; 82553; 83880; 84484; 85025; 93005; 93010; 94640; 99284-25

== ENCOUNTER 2019-04-24 07:51 | Emergency (ER) | payer OTHER ==
[2019-04-24] MEDS ORDERED: SODIUM CHLORIDE 500 ML IV STA (08:01)
--- NOTE | 2019-04-24 08:01 | PDOC ---
History of Present Illness - General Chief Complaint: Injury Stated Complaint: FALL Time Seen by Provider: 04/24/19 07:56 History Source: Patient Exam Limitations: Clinical Condition, Language Barrier - History of Present Illness Initial Comments: Onelia Hart is a 73 yo F w a pmh of HTN, HLD, NIDDM, COPD/HARISH (on 2 L NC), and breast CA (L mastectomy, no chemo/radiation) who presents to the [facility] er with her aid BIBEMS after she fell down earlier this morning and hit her head which caused a small laceration on way to the bathroom. Patient takes aspirin. The patient states that she woke up at 6 am and tried getting out of bed to goto the bathroom. When she got out of bed, she was walking and experienced a significant amount of pain in her right hip which caused her to fall down, hit her head, and she had a very hard time getting off the floor. She was on the floor for close to an hour before she was able to call her aid who came in early at 6:30 and then called the ambulance to bring her to the hospital. Patient endorses a chronic cough from her COPD which has not changed much in character. Patient denies having experienced any chest pain, SOB, difficulty breathing, fevers, chills, infections, dysuria, frequency, or urgency prior to the fall. Allergies: NKDA, NKA PCP: Dr. Ronit Erazo Pulm: Seen Dr. Viramontes in the past. Social: Lives alone at home and has an aid during the day from 8-5. Pt denies any cigarette, alcohol, or drug use. PSH: None reported Past History - Past Medical History Allergies/Adverse Reactions: Allergies Allergy/AdvReac Type Severity Reaction Status Date / Time No Known Allergies Allergy Verified 04/24/19 08:03 Home Medications: Ambulatory Orders Levothyroxine Sodium [Levo-T] 125 mcg PO DAILY 08/10/16 Memantine HCl [Namenda Xr] 14 mg PO DAILY 08/10/16 Albuterol 2.5/Ipratropium 0.5 [Duoneb -] 1 amp NEB Q4H PRN #0 amp 08/14/16 Gabapentin [Neurontin -] 300 mg PO BID capsule 08/14/16 Albuterol 0.083% Nebulizer Zehra [Ventolin 0.083% Nebulizer Soln -] 1 amp NEB Q4H PRN #0 amp 09/04/16 Aspirin Coated [Ecotrin -] 81 mg PO DAILY tablet.ec 09/04/16 Ramipril [Altace] 2.5 mg PO DAILY #30 capsule 09/04/16 Benzonatate 200 mg PO DAILY 06/18/17 Carvedilol 6.25 mg PO BID 06/18/17 Cholecalciferol (Vitamin D3) [Vitamin D3 -] 3,000 unit PO DAILY 06/18/17 Olopatadine HCl [Pazeo] 1 drop OU DAILY 06/18/17 Simvastatin 40 mg PO DAILY 06/18/17 Sitagliptin Phosphate [Januvia] 100 mg PO DAILY 06/18/17 Glipizide/Metformin HCl [Glipizide-Metformin 5-500 mg] 1 each PO BID 06/19/17 Budesonide/Formeterol Fumarate [SYMBICORT 160/4.5mcg -] 1 inh PO BID 10/01/18 Montelukast Sodium [Singulair] 10 mg PO DAILY 10/01/18 Acetaminophen [Tylenol .Regular Strength -] 650 mg PO Q6H PRN tablet 12/09/18 Guaifenesin [Robitussin -] 10 ml PO Q6H PRN cup 12/09/18 Methylprednisolone Na Succ [Solu-Medrol -] 40 mg IVPUSH Q8H vial 12/09/18 Pantoprazole Sodium [Protonix -] 40 mg PO DAILY 30 Days #30 tablet.ec 12/09/18 Prednisone 10 mg PO DAILY #30 tablet 12/09/18 Anemia: No Asthma: Yes Cancer: Yes (LEFT BREAST) Cardiac Disorders: No CVA: No COPD: Yes (USES OXYGEN PRN @ 2l) CHF: No Dementia: (?) Diabetes: Yes (NIDDM) GI Disorders: No Disorders: No HTN: Yes Hypercholesterolemia: Yes Liver Disease: No Seizures: No Thyroid Disease: Yes - Surgical History Abdominal Surgery: No - Immunization History Immunization Up to Date: Yes - Psycho Social/Smoking Cessation Hx Smoking Status: No Smoking History: Never smoked Have you smoked in the past 12 months: No Number of Cigarettes Smoked Daily: 0 Cigars Per Day: 0 Hx Alcohol Use: No Drug/Substance Use Hx: No Substance Use Type: None Hx Substance Use Treatment: No Review of Systems - Review of Systems Able to Perform ROS?: Yes Comments:: CONSTITUTIONAL: Absent: fever, no chills, no fatigue EYES: Absent: visual changes ENT: Absent: ear pain, no sore throat CARDIOVASCULAR: Absent: chest pain, no palpitations RESPIRATORY: Absent: cough, no SOB GI: Absent: abdominal pain, no nausea, no vomiting, no constipation, no diarrhea GENITOURINARY: Absent: dysuria, no frequency, no hematuria MUSKULOSKELETAL: Present: Back pain, arthralgia Absent: no myalgia SKIN: Absent: rash NEURO: Present: headache *Physical Exam - Physical Exam Comments: GENERAL: Well-appearing, well-nourished. Mild distress. HEENT: There is a 1 cm laceration on the posterior left temporo/occipital aspect of her head. Normocephalic. PERRL, EOM intact. CARDIOVASCULAR: Normal S1, S2. Regular rate and rhythm. PULMONARY: No evidence of respiratory distress. Lungs clear to auscultation bilaterally. No wheezing, rales or rhonchi. ABDOMEN: Soft, non-distended, non-tender. EXTREMITIES: 2+ dp/pt pulses in both ankles. Limited ROM in right lower extremity. Normal ROM in other 3 extremities. No gross deformities. No leg length discrepancy. SKIN: Warm, dry. No rash NEUROLOGICAL: Patient has mildly decreased strength in her right leg secondary to pain. No focal neurological deficits. ED Treatment Course - LABORATORY CBC & Chemistry Diagram: 04/24/19 08:10 04/24/19 08:10 Medical Decision Making - Medical Decision Making Onelia Hart is a 73 yo F w a pmh of HTN, HLD, NIDDM, COPD/HARISH (on 2 L NC), and breast CA (L mastectomy, no chemo/radiation) who presents to the [facility] er with her aid BIBEMS after she fell down earlier this morning and hit her head which caused a small laceration on way to the bathroom. Patient takes aspirin. The patient states that she woke up at 6 am and tried getting out of bed to goto the bathroom. When she got out of bed, she was walking and experienced a significant amount of pain in her right hip which caused her to fall down, hit her head, and she had a very hard time getting off the floor. She was on the floor for close to an hour before she was able to call her aid who came in early at 6:30 and then called the ambulance to bring her to the hospital. Patient endorses a chronic cough from her COPD which has not changed much in character. Patient denies having experienced any chest pain, SOB, difficulty breathing, fevers, chills, infections, dysuria, frequency, or urgency prior to the fall. Vital Signs Temp Pulse Resp BP Pulse Ox 99.4 F 72 17 115/61 99 04/24/19 08:01 04/24/19 08:01 04/24/19 08:01 04/24/19 08:01 04/24/19 08:04 DDx IBNLT: Intracranial hemorrhage, cervical fx, pelvis/hip fx, electrolyte/ metabolic disturbance, rhabdo, UTI/Pylo, ACS/MS, CVA/TIA Plan: EKG, Labs, Urine, CT, XR, analgesia, IV hydration, re-assess EKG: NS rate of 73, RBBB and LAFB - bifascicular, LAD, no hypertrophy, Q waves in 1 and aVL, no ST elevations or depressions, no abnormal TWI's, DC 142, QTc 425. EKG grossly unchanged since 02/22/19. Labs: Elevated BUN and lipids. XR: No acute fx CT: Head - no evidence of acute pathology cervical - No acute fx Re-assessment: Patient seen ambulating at bedside and requests to be discharged and follow up with her pcp Disposition: Home with PCP fu Discharge - Discharge Information Problems reviewed: Yes Clinical Impression/Diagnosis: Fall Qualifiers: Encounter type: initial encounter Qualified Code(s): W19.XXXA - Unspecified fall, initial encounter Condition: Improved Disposition: HOME - Admission No - Follow up/Referral Referrals: Ronit Erazo MD [Primary Care Provider] - - Patient Discharge Instructions Patient Printed Discharge Instructions: How to Prevent Falls Additional Instructions: You came into the ER after you fell down and hit your head. We did a head cat scan which showed no bleeds in your head. We also did x-rays of your hip which showed no fracture. You are at risk of falling and need additional help at home. You need additional aid hours to help you out. Please come back to the ER if your pain worsens, you feel nauseous, start vomiting, or have any other new or worsening concerns. Thank you for coming to the [facility] ER. We hope you feel better soon. Print Language: SWEDISH - Post Discharge Activity
[2019-04-24 08:03] VITALS: BMI 37.6
[2019-04-24] MEDS ORDERED: DIPHTH,PERTUSS(ACELL),TET 0.5 ML DISP.SYRIN IM ONE ×2 (08:03→08:21)
[2019-04-24] MEDS ORDERED: ACETAMINOPHEN 1000 MG/100 ML VIAL (NON FORMULARY) IVPB ONE (08:04)
--- NOTE | 2019-04-24 08:04 | PDOC ---
Attending Attestation - Resident Resident Name: Ryan Ward - HPI HPI: 04/24/19 10:27 Pt presents to the ED after mechanical trip and fall. Denies LOC. States that she was unable to get up by herself but was helped up by her aide within an hour after her injury. - Physicial Exam PE: 04/24/19 10:30 Agree with resident exam. Patient is alert and oriented and in no acute distress. Neurologically intact. - Medical Decision Making 04/24/19 10:34 Pt presents to the ED complaining of fall. Ct head and c spine checked to rule out intracranial or cervical spinal injury and are negative. Xray to rule out hip fx is negative. Will discharge home.
[2019-04-24] MEDS ORDERED: ACETAMINOPHEN INJECTION 100 ML IVPB ONE (08:19)
[2019-04-24 08:51] LABS: BASO % 0.8 % (0-2.0); EOS % 1.9 % (0-4.5); HEMATOCRIT 40.5 % (32.4-45.2); HEMOGLOBIN 13.5 GM/dL (10.7-15.3); LYMPH % 15.2 % (8-40); MCH 27.3 pg (25.7-33.7); MCHC 33.2 g/dl (32.0-36.0); MEAN CELL VOLUME 82.3 fl (80-96); MEAN PLT VOLUME 9.6 fl (7.5-11.1); NEUT % 74.1 % (42.8-82.8); PLATELET COUNT 199 K/MM3 (134-434); RBC 4.92 M/mm3 (3.60-5.2); RDW 14.9 % (11.6-15.6); WHITE BLOOD COUNT 10.6 K/mm3 (4.0-10.0)
[2019-04-24 09:21] LABS: ALBUMIN 3.2 g/dl (3.4-5.0); BILIRUBIN,TOTAL 0.6 mg/dL (0.2-1); BLOOD UREA NITROGEN 18.6 mg/dL (7-18); CALCIUM 8.8 mg/dL (8.5-10.1); CREATININE 0.7 mg/dL (0.55-1.3); INR 0.96 (0.83-1.09); PROTHROMBIN TIME (PATIENT) 11.3 SEC (9.7-13.0); TOT PROT 7.1 g/dl (6.4-8.2)
[2019-04-24 10:59] LABS: URINE APPEARANCE CLEAR; URINE BILIRUBIN NEGATIVE (NEGATIVE); URINE COLOR YELLOW; URINE GLUCOSE (UA) NEGATIVE (NEGATIVE); URINE KETONE NEGATIVE (NEGATIVE); URINE LEUK ESTERASE NEGATIVE (NEGATIVE); URINE NITRITE NEGATIVE (NEGATIVE); URINE PROTEIN NEGATIVE (NEGATIVE)
[2019-04-24 11:10] VITALS: BP 129/86; PULSE 89; TEMP 98.2
--- NOTE | 2019-04-24 14:35 | EKG ---
Test Reason : Blood Pressure : / mmHG Vent. Rate : 073 BPM Atrial Rate : 073 BPM P-R Int : 142 ms QRS Dur : 126 ms QT Int : 386 ms P-R-T Axes : 012 -72 043 degrees QTc Int : 425 ms NORMAL SINUS RHYTHM RIGHT BUNDLE BRANCH BLOCK LEFT ANTERIOR FASCICULAR BLOCK BIFASCICULAR BLOCK POSSIBLE LATERAL INFARCT (CITED ON OR BEFORE 06-DEC-2018) ABNORMAL ECG WHEN COMPARED WITH ECG OF 22-FEB-2019 10:09, NO SIGNIFICANT CHANGE WAS FOUND Confirmed by ANTONIO CHACON MD ([id number]) on 04/24/2019 2:35:11 PM Referred By: Confirmed By:ANTONIO CHACON MD
== END 2019-04-24 11:26 | disposition home or self-care (01) ==
LOC: JER 07:51
PROC: 3E033NZ Introduction of Analgesics, Hypnotics, Sedatives into Peripheral Vein, Percutaneous Approach (ICD-10-PCS; principal; 2019-04-24)
PROC: 3E0337Z Introduction of Electrolytic and Water Balance Substance into Peripheral Vein, Percutaneous Approach (ICD-10-PCS; 2019-04-24)
PROC: 3E0234Z Introduction of Serum, Toxoid and Vaccine into Muscle, Percutaneous Approach (ICD-10-PCS; 2019-04-24)
DX: S09.90XA Unspecified injury of head, initial encounter (principal); M25.551 Pain in right hip; W18.39XA Other fall on same level, initial encounter; Y93.89 Activity, other specified; Y92.009 Unspecified place in unspecified non-institutional (private) residence as the place of occurrence of the external cause; I10 Essential (primary) hypertension; E78.5 Hyperlipidemia, unspecified; E11.9 Type 2 diabetes mellitus without complications; J44.9 Chronic obstructive pulmonary disease, unspecified; Z85.3 Personal history of malignant neoplasm of breast
CPT/HCPCS: 36415; 70450-TC; 71045-TC-FY; 72125-TC; 73523-TC-FY; 80053; 80061; 81003; 82550; 83721; 84484; 85025; 85610; 86900; 90715; 93005; 93010; 99284-25; J0131

== ENCOUNTER 2019-09-03 10:26 | Emergency (ER) | payer OTHER ==
[2019-09-03 10:41] VITALS: BP 120/54; PULSE 59; TEMP 98.6; BMI 28.7
--- NOTE | 2019-09-03 11:58 | PDOC ---
History of Present Illness - General Chief Complaint: Pain Stated Complaint: RT FOOT PAIN Time Seen by Provider: 09/03/19 11:24 - History of Present Illness Initial Comments: 09/03/19 11:55 73-year-old female with multiple comorbidities presents for atraumatic right heel pain x1 day Past History - Past Medical History Allergies/Adverse Reactions: Allergies Allergy/AdvReac Type Severity Reaction Status Date / Time No Known Allergies Allergy Verified 09/03/19 10:41 Home Medications: Ambulatory Orders Levothyroxine Sodium [Levo-T] 125 mcg PO DAILY 08/10/16 Memantine HCl [Namenda Xr] 14 mg PO DAILY 08/10/16 Albuterol 2.5/Ipratropium 0.5 [Duoneb -] 1 amp NEB Q4H PRN #0 amp 08/14/16 Gabapentin [Neurontin -] 300 mg PO BID capsule 08/14/16 Albuterol 0.083% Nebulizer Zehra [Ventolin 0.083% Nebulizer Soln -] 1 amp NEB Q4H PRN #0 amp 09/04/16 Aspirin Coated [Ecotrin -] 81 mg PO DAILY tablet.ec 09/04/16 Ramipril [Altace] 2.5 mg PO DAILY #30 capsule 09/04/16 Benzonatate 200 mg PO DAILY 06/18/17 Carvedilol 6.25 mg PO BID 06/18/17 Cholecalciferol (Vitamin D3) [Vitamin D3 -] 3,000 unit PO DAILY 06/18/17 Olopatadine HCl [Pazeo] 1 drop OU DAILY 06/18/17 Simvastatin 40 mg PO DAILY 06/18/17 Sitagliptin Phosphate [Januvia] 100 mg PO DAILY 06/18/17 Glipizide/Metformin HCl [Glipizide-Metformin 5-500 mg] 1 each PO BID 06/19/17 Budesonide/Formeterol Fumarate [SYMBICORT 160/4.5mcg -] 1 inh PO BID 10/01/18 Montelukast Sodium [Singulair] 10 mg PO DAILY 10/01/18 Acetaminophen [Tylenol .Regular Strength -] 650 mg PO Q6H PRN tablet 12/09/18 Guaifenesin [Robitussin -] 10 ml PO Q6H PRN cup 12/09/18 Methylprednisolone Na Succ [Solu-Medrol -] 40 mg IVPUSH Q8H vial 12/09/18 Pantoprazole Sodium [Protonix -] 40 mg PO DAILY 30 Days #30 tablet.ec 12/09/18 Prednisone 10 mg PO DAILY #30 tablet 12/09/18 Lidocaine 5% Patch [Lidoderm Patch -] 1 patch TP DAILY #30 patch 09/03/19 Anemia: No Asthma: Yes Cancer: Yes (LEFT BREAST) Cardiac Disorders: No CVA: No COPD: Yes (USES OXYGEN PRN @ 2l) CHF: No Dementia: (?) Diabetes: Yes (NIDDM) GI Disorders: No Disorders: No HTN: Yes Hypercholesterolemia: Yes Liver Disease: No Seizures: No Thyroid Disease: Yes - Surgical History Abdominal Surgery: No - Immunization History Immunization Up to Date: Yes - Psycho Social/Smoking Cessation Hx Smoking Status: No Smoking History: Never smoked Have you smoked in the past 12 months: No Number of Cigarettes Smoked Daily: 0 Cigars Per Day: 0 Hx Alcohol Use: No Drug/Substance Use Hx: No Substance Use Type: None Hx Substance Use Treatment: No Review of Systems - Review of Systems Constitutional: No: Fever *Physical Exam - Vital Signs Last Vital Signs Temp Pulse Resp BP Pulse Ox 98.6 F 59 L 16 120/54 L 93 L 09/03/19 10:38 09/03/19 10:38 09/03/19 10:38 09/03/19 10:38 09/03/19 10:38 - Physical Exam 09/03/19 11:56 Right foot skin color and temperature normal range of motion is limited at the ankle. Tenderness about the retrocalcaneal area no other areas of tenderness in the foot or ankle. Neurovascular intact no gross sensorimotor deficit ED Treatment Course - RADIOLOGY Radiology Studies Ordered: Category Date Time Status FOOT-RIGHT [RAD] Stat Radiology 09/03/19 11:29 Taken Medical Decision Making - Medical Decision Making 09/03/19 11:56 X-ray of the right foot show retrocalcaneal bone spur and a bone spur at the medial tubercle of the calcaneus this is retrocalcaneal bursitis follow-up with Ortho lidocaine patches for pain patient is on multiple medications Discharge - Discharge Information Problems reviewed: Yes Clinical Impression/Diagnosis: Retrocalcaneal bursitis Condition: Stable Disposition: HOME - Admission No - Additional Discharge Information Prescriptions: Lidocaine 5% Patch [Lidoderm Patch -] 1 patch TP DAILY #30 patch - Follow up/Referral Referrals: Ronit Erazo MD [Primary Care Provider] - Gabriel Kong DO [Staff Physician] - - Patient Discharge Instructions Additional Instructions: Return to the emergency room for worsening symptoms and without fail follow-up with orthopedic surgery in 2 to 3 days for further evaluation and treatment options. Please use the lidocaine patches as directed you may weight-bear as tolerated with your cane as usual - Post Discharge Activity
== END 2019-09-03 12:11 | disposition home or self-care (01) ==
LOC: JERFT 10:26
DX: M77.51 Other enthesopathy of right foot and ankle (principal); Z85.3 Personal history of malignant neoplasm of breast; E11.9 Type 2 diabetes mellitus without complications; I10 Essential (primary) hypertension; E78.00 Pure hypercholesterolemia, unspecified; E07.9 Disorder of thyroid, unspecified
CPT/HCPCS: 73630-TC-RT-FY; 99283-25

== ENCOUNTER 2019-09-20 18:47 | Inpatient (IN) | payer OTHER ==
--- NOTE | 2019-09-20 19:08 | PDOC ---
History of Present Illness - General Chief Complaint: Chest Pain Stated Complaint: CHEST PAIN Time Seen by Provider: 09/20/19 19:08 History Source: Patient Exam Limitations: No Limitations - History of Present Illness Initial Comments: 73 year old female with PMH HTN, HLD, NIDDM, COPD/HARISH (on 2 L NC), and breast CA (L mastectomy, no chemo/radiation) presented to ED for chest pain and cough. Pt reported a dry cough x3 days, associated with generalized weakness/malaise. She reported development of constant generalized chest pain worse with coughing x2 days ago. PCP: Ronit DUNHAM General: admitted to fever, chills, generalized weakness. HEENT: denied sore throat, rhinorrhea, ear pain. Cardiovascular: admitted to chest pain. denied palpitations, syncope, diaphoresis. Respiratory: admitted to shortness of breath. denied cough, sputum production, hemoptysis. Gastrointestinal: denied abdominal pain, nausea, vomiting, diarrhea, constipation, blood in stool. Genitourinary: denied dysuria, increased urinary frequency, hematuria, urinary incontinence, flank pain. Back: denied back pain. Musculoskeletal: denied joint pain, muscle pain, joint swelling. Neurological: denied headache, dizziness, numbness, tingling, weakness. Integumentary: denied rash, laceration, abrasion. Hematologic/Lymphatic: denied bruising or bleeding. PE Constitutional: Well-nourished, Well-developed, appearing stated age. coughing. HEENT: head is normocephalic, atraumatic. EOMI. PERRLA. Neck: supple. Full ROM. Cardiovascular: regular heart rhythm. Normal S1 and S2. no murmurs. no pericardial friction rub. Respiratory: decreased air movement bilaterally. no stridor. no labored breathing. speaking full sentences. no wheezing. no crackles. Gastrointestinal: soft, flat, nontender. normal bowel sounds. no rebound, guarding, or masses. Extremities: peripheral pulses intact and equal. no lower extremity edema noted. Neurological: CN 2-12 grossly intact. moves all four extremities. Psych: awake, alert, oriented x3. follows commands. answers questions appropriately. Past History - Past Medical History Allergies/Adverse Reactions: Allergies Allergy/AdvReac Type Severity Reaction Status Date / Time No Known Allergies Allergy Verified 09/03/19 10:41 Home Medications: Ambulatory Orders Levothyroxine Sodium [Levo-T] 125 mcg PO DAILY 08/10/16 Memantine HCl [Namenda Xr] 14 mg PO DAILY 08/10/16 Albuterol 2.5/Ipratropium 0.5 [Duoneb -] 1 amp NEB Q4H PRN #0 amp 08/14/16 Gabapentin [Neurontin -] 300 mg PO BID capsule 08/14/16 Albuterol 0.083% Nebulizer Zehra [Ventolin 0.083% Nebulizer Soln -] 1 amp NEB Q4H PRN #0 amp 09/04/16 Aspirin Coated [Ecotrin -] 81 mg PO DAILY tablet.ec 09/04/16 Ramipril [Altace] 2.5 mg PO DAILY #30 capsule 09/04/16 Benzonatate 200 mg PO DAILY 06/18/17 Carvedilol 6.25 mg PO BID 06/18/17 Cholecalciferol (Vitamin D3) [Vitamin D3 -] 3,000 unit PO DAILY 06/18/17 Olopatadine HCl [Pazeo] 1 drop OU DAILY 06/18/17 Simvastatin 40 mg PO DAILY 06/18/17 Sitagliptin Phosphate [Januvia] 100 mg PO DAILY 06/18/17 Glipizide/Metformin HCl [Glipizide-Metformin 5-500 mg] 1 each PO BID 06/19/17 Budesonide/Formeterol Fumarate [SYMBICORT 160/4.5mcg -] 1 inh PO BID 10/01/18 Montelukast Sodium [Singulair] 10 mg PO DAILY 10/01/18 Acetaminophen [Tylenol .Regular Strength -] 650 mg PO Q6H PRN tablet 12/09/18 Guaifenesin [Robitussin -] 10 ml PO Q6H PRN cup 12/09/18 Methylprednisolone Na Succ [Solu-Medrol -] 40 mg IVPUSH Q8H vial 12/09/18 Pantoprazole Sodium [Protonix -] 40 mg PO DAILY 30 Days #30 tablet.ec 12/09/18 Prednisone 10 mg PO DAILY #30 tablet 12/09/18 Lidocaine 5% Patch [Lidoderm Patch -] 1 patch TP DAILY #30 patch 09/03/19 - Surgical History Abdominal Surgery: No - Immunization History Immunization Up to Date: Yes - Psycho Social/Smoking Cessation Hx Smoking Status: No Smoking History: Never smoked Have you smoked in the past 12 months: No Number of Cigarettes Smoked Daily: 0 Cigars Per Day: 0 Information on smoking cessation initiated: No Hx Alcohol Use: No Drug/Substance Use Hx: No Substance Use Type: None Hx Substance Use Treatment: No *Physical Exam - Vital Signs Last Vital Signs Temp Pulse Resp BP Pulse Ox 100.3 F H 82 18 126/59 L 88 L 09/20/19 18:59 09/20/19 18:59 09/20/19 18:59 09/20/19 18:59 09/20/19 18:59 ED Treatment Course - LABORATORY CBC & Chemistry Diagram: 09/20/19 19:20 09/20/19 19:20 Medical Decision Making - Medical Decision Making 73 year old female with above PMH presented to ED for cough, chest pain, shortness of breath. Initial Vital Signs Temp Pulse Resp BP Pulse Ox 100.3 F H 82 18 126/59 L 88 L 09/20/19 18:59 09/20/19 18:59 09/20/19 18:59 09/20/19 18:59 09/20/19 18:59 Febrile. No tachycardia. No tachypnea. Mild diastolic hypotension. Hypoxia on room air. Vital Signs Temperature 101.9 F H 09/20/19 19:30 Rectally febrile Labs ordered: sepsis order set, influenza, ABG Imaging ordered: CXR Medications ordered: normal saline bolus, tylenol IV, duoneb, ASA 324 chew once , Vancomycin, Zosyn EKG performed at 1858: rate 78, regular rhythm, normal axis, RBBB, left anterior fascicular block, no acute ST changes. -Similar to EKG performed 04/24/19 09/20/19 20:17 CXR shows bilateral pulmonary vascular congestion by my and Dr. Peck's PGY3 EM Resident read. Consider also bilateral patchy pneumonia. -Pending official report IVF stopped after 500 cc bolus. 09/20/19 20:35 Laboratory Last Values WBC 11.2 K/mm3 (4.0-10.0) H 09/20/19 19:20 RBC 5.24 M/mm3 (3.60-5.2) H 09/20/19 19:20 Hgb 13.9 GM/dL (10.7-15.3) 09/20/19 19:20 Hct 42.6 % (32.4-45.2) 09/20/19 19:20 MCV 81.3 fl (80-96) 09/20/19 19:20 MCH 26.5 pg (25.7-33.7) 09/20/19 19:20 MCHC 32.7 g/dl (32.0-36.0) 09/20/19 19: RDW 15.2 % (11.6-15.6) 09/20/19 19: Plt Count 208 K/MM3 (134-434) 09/20/19 19:20 MPV 9.9 fl (7.5-11.1) 09/20/19: Absolute Neuts (auto) 9.2 K/mm3 (1.5-8.0) H 09/20/19 19:20 Neutrophils % 82.1 % (42.8-82.8) D 09/20/19 19: Lymphocytes % 7.4 % (8-40) L D 09/20/19 19: Monocytes % 8.6 % (3.8-10.2) 09/20/19 19: Eosinophils % 1.4 % (0-4.5) 09/20/19 19: Basophils % 0.5 % (0-2.0) 09/20/19: Nucleated RBC % 0 % (0-0) 09/20/19 19:20 PT with INR 12.20 SEC (9.7-13.0) 09/20/19 19: INR 1.03 (0.83-1.09) 09/20/19:20 PTT (Actin FS) 35.9 SECONDS (25.2-36.5) 09/20/19 19:20 Anticoagulation Therapy No Result Required. 09/20/19 19:50 Puncture Site No Result Required. 09/20/19 19:50 ABG pH 7.40 (7.35-7.45) 09/20/19 19:50 ABG pCO2 at Pt Temp 44.0 mmHg (35-45) 09/20/19 19:50 ABG pO2 at Pt Temp 96.4 mmHg (80-100) 09/20/19 19:50 ABG HCO3 26.7 mmol/L (22-27) 09/20/19 19:50 ABG O2 Sat (Measured) 97.0 % (95-98) 09/20/19 19:50 ABG O2 Content 17.1 % vol 09/20/19:50 ABG Base Excess 2.0 meq/l (-2-2) 09/20/19 19:50 Jh Test No Result Required. 09/20/19 19:50 VBG pH 7.39 (7.31-7.41) 09/20/19 19:20 POC VBG pCO2 47.5 mmHg (38-52) 09/20/19 19:20 POC VBG pO2 54.2 mmHg (28-48) H 09/20/19:20 VBG HCO3 27.8 mmol/L (23-29) 09/20/19:20 VBG O2 Sat (David) 84.6 % (70-80) H 09/20/19:20 VBG Base Excess 2.6 meq/l (-2-2) H 09/20/19:20 Carboxyhemoglobin 1.1 % (0-2) 09/20/19 19:50 Methemoglobin < 1.0 % (0-2) 09/20/19 19:50 O2 Delivery Device No Result Required. 09/20/19 19:50 Oxygen Flow Rate No Result Required. 09/20/19 19:50 Vent Mode No Result Required. 09/20/19 19:50 Vent Rate No Result Required. 09/20/19 19:50 Mechanical Rate No Result Required. 09/20/19 19:50 Pressure Support Vent No Result Required. 09/20/19 19:50 Sodium 140 mmol/L (136-145) 09/20/19 19:20 Potassium 3.8 mmol/L (3.5-5.1) 09/20/19 19:20 Chloride 103 mmol/L (98-107) 09/20/19 19:20 Carbon Dioxide 27 mmol/L (21-32) 09/20/19 19:20 Anion Gap 10 MMOL/L (8-16) 09/20/19 19:20 BUN 17.3 mg/dL (7-18) 09/20/19 19:20 Creatinine 0.9 mg/dL (0.55-1.3) 09/20/19 19:20 Est GFR (CKD-EPI)AfAm 73.52 09/20/19 19:20 Est GFR (CKD-EPI)NonAf 63.43 09/20/19 19:20 Random Glucose 68 mg/dL (74-106) L 09/20/19 19:20 Lactic Acid 2.0 mmol/L (0.4-2.0) 09/20/19 19:20 Calcium 8.9 mg/dL (8.5-10.1) 09/20/19 19: Total Bilirubin 0.6 mg/dL (0.2-1) 09/20/19 19:20 AST 30 U/L (15-37) 09/20/19 19:20 ALT 23 U/L (13-61) 09/20/19: Alkaline Phosphatase 70 U/L (45-117) 09/20/19: Troponin I 0.05 ng/ml (0.00-0.05) 09/20/19 19: B-Natriuretic Peptide 68.8 pg/ml (5-125) 09/20/19 19: Total Protein 8.0 g/dl (6.4-8.2) 09/20/19 19:20 Albumin 3.7 g/dl (3.4-5.0) 09/20/19 19:20 Urine Color Yellow 09/20/19 19:25 Urine Appearance Clear 09/20/19 19:25 Urine pH 5.0 (5.0-8.0) 09/20/19 19: Ur Specific [place] 1.020 (1.010-1.035) 09/20/19 19:25 Urine Protein Negative (NEGATIVE) 09/20/19 19:25 Urine Glucose (UA) Negative (NEGATIVE) 09/20/19 19:25 Urine Ketones Negative (NEGATIVE) 09/20/19 19:25 Urine Blood Negative (NEGATIVE) 09/20/19: Urine Nitrite Negative (NEGATIVE) 09/20/19: Urine Bilirubin Negative (NEGATIVE) 09/20/19: Urine Urobilinogen 1.0 mg/dL (0.2-1.0) 09/20/19 19:25 Ur Leukocyte Esterase Negative (NEGATIVE) 09/20/19: Influenza A (Rapid) Negative (Negative) 09/20/19: Influenza B (Rapid) Negative (Negative) 02/29/20 19:20 Leukocytosis with left shift. No acidosis. No hypoxemia. Borderline lactic acidosis. Pt recieved 500 cc bolus. Troponin 0.05 UA negative for UTI Influenza negative BNP within normal limits -Fluids restarted Pt reported improvement of chest pain. Pt reported improvement of shortness of breath. Pt to be admitted for sepsis likely secondary to pneumonia, blood cultures pending. PCP: Ronit Erazo - 09/20/19 21:01 Signout given to DELMY Chakraborty. Pt to be admitted under Dr. Lyn's service. Pending admission. Discharge - Discharge Information Problems reviewed: Yes Clinical Impression/Diagnosis: Sepsis, Cough, Chest pain, Leukocytosis, Fever Condition: Stable - Admission Yes - Follow up/Referral - Patient Discharge Instructions - Post Discharge Activity
[2019-09-20] MEDS ORDERED: SODIUM CHLORIDE 2,395 ML IV ONE (19:09)
[2019-09-20] MEDS ORDERED: ALBUTEROL SO4 2.5/IPRATROPIUM 0.5 INH SOL 3 ML VIAL.NEB. NEB ONE ×2 (19:33→19:59)
[2019-09-20] MEDS ORDERED: ACETAMINOPHEN 1000 MG/100 ML VIAL (NON FORMULARY) IVPB ONE (19:33)
[2019-09-20] MEDS ORDERED: ACETAMINOPHEN INJECTION 100 ML IVPB ONE (19:35)
[2019-09-20] MEDS ORDERED: ASPIRIN 81 MG CHEWABLE TABLETS PO ONE (19:51)
[2019-09-20 19:58] LABS: BASO % 0.5 % (0-2.0); EOS % 1.4 % (0-4.5); HEMATOCRIT 42.6 % (32.4-45.2); HEMOGLOBIN 13.9 GM/dL (10.7-15.3); LYMPH % 7.4 % (8-40); MCH 26.5 pg (25.7-33.7); MCHC 32.7 g/dl (32.0-36.0); MEAN CELL VOLUME 81.3 fl (80-96); MEAN PLT VOLUME 9.9 fl (7.5-11.1); MONO % 8.6 % (3.8-10.2); NEUT % 82.1 % (42.8-82.8); PLATELET COUNT 208 K/MM3 (134-434); RBC 5.24 M/mm3 (3.60-5.2); RDW 15.2 % (11.6-15.6); WHITE BLOOD COUNT 11.2 K/mm3 (4.0-10.0)
[2019-09-20 20:02] LABS: VENOUS PC02 47.5 mmHg (38-52); VENOUS PH 7.39 (7.31-7.41); VENOUS PO2 54.2 mmHg (28-48)
[2019-09-20 20:06] LABS: URINE APPEARANCE CLEAR; URINE BILIRUBIN NEGATIVE (NEGATIVE); URINE COLOR YELLOW; URINE GLUCOSE (UA) NEGATIVE (NEGATIVE); URINE KETONE NEGATIVE (NEGATIVE); URINE LEUK ESTERASE NEGATIVE (NEGATIVE); URINE NITRITE NEGATIVE (NEGATIVE); URINE PROTEIN NEGATIVE (NEGATIVE)
[2019-09-20] MEDS ORDERED: ASPIRIN 81 MG CHEWABLE TABLETS ONE (20:08)
[2019-09-20 20:10] LABS: INR 1.03 (0.83-1.09); PROTHROMBIN TIME (PATIENT) 12.2 SEC (9.7-13.0)
[2019-09-20 20:13] LABS: ACTIVATED PTT 35.9 SECONDS (25.2-36.5)
[2019-09-20] MEDS ORDERED: PIPERACILLIN/TAZOB 4.5 GM 4.5 GM in DEXTROSE 5%-WATER 100 ML IVPB ONE (20:16)
[2019-09-20] MEDS ORDERED: VANCOMYCIN 1,000 MG in DEXTROSE 5%-WATER - 250 ML IVPB ONE (20:16)
[2019-09-20 20:22] LABS: ARTERIAL BLOOD GAS PO2 96.4 mmHg (80-100); CARBOXYHEMOGLOBIN 1.1 % (0-2)
[2019-09-20 20:26] LABS: ALBUMIN 3.7 g/dl (3.4-5.0); BILIRUBIN,TOTAL 0.6 mg/dL (0.2-1); BLOOD UREA NITROGEN 17.3 mg/dL (7-18); CALCIUM 8.9 mg/dL (8.5-10.1); CREATININE 0.9 mg/dL (0.55-1.3); POTASSIUM 3.8 mmol/L (3.5-5.1)
[2019-09-20] MEDS ORDERED: PIPERACILLIN/TAZOB 4.5 GM 4.5 GM/100 ML BAG IVPB ONE (20:44)
[2019-09-20] MEDS ORDERED: VANCOMYCIN 1 GRAM (PRE-DOCKED) 1,000 MG/250 ML BAG IVPB ONE (20:44)
[2019-09-20 20:53] LABS: N-TERMINAL BNP 68.8 pg/ml (5-125)
--- NOTE | 2019-09-20 21:12 | HP ---
Admitting History and Physical - Primary Care Physician PCP: Ronit Erazo - Admission Chief Complaint: Chest Pain, Cough, Generalized Malaise History of Present Illness: This is a 73 y/o woman with a PMHx of HTN, HLD, NIDDM, COPD/HARISH (2L, home O2), Hypothyroidism, Breast Ca s/p L- Mastectomy, (no active Chemo or RT). Who presents to the ED with a non productive dry cough, with pleurtic CP, generalized weakness and malaise x 3 days. 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 Patient denies recent sick contacts or travel. Patient denies fever, chills, MELARA, dizziness, SOB, palpitations, AP, N/V/D, constipation , melena, hematochezia, dysuria. ED course was noted for: (1) Sepsis- WBc 11.2, T 101.9, Spo2 88% RA (2) Chest Xray image- vascular congestion, ?patchy bilateral infiltrates (3) EKG- NSR with RBBB, left anterior fasicular (4) Troponin- 0.05 History Source: Patient Limitations to Obtaining History: Language Barrier (Togolese RN translater used, (Altocom line not working)) - Past Medical History [employer]: Yes: Other (Mild cognitive defect) Cardiovascular: Yes: HTN, Hyperlipdemia Pulmonary: Yes: COPD, O2 Dependent, Sleep Apnea, Other (Influenza) Heme/Onc: Yes: Cancer. No: Current Radiation Therapy Endocrine: Yes: Diabetes Mellitus, Hypothyroidism - Past Surgical History Past Surgical History: Yes: Mastectomy - Smoking History Smoking history: Never smoked Have you smoked in the past 12 months: No Aproximately how many cigarettes per day: 0 - Alcohol/Substance Use Hx Alcohol Use: No History of Substance Use: reports: None - Social History Usual Living Arrangement: Yes: With Child (grandchildren) ADL: Independent History of Recent Travel: No Home Medications - Allergies Allergies/Adverse Reactions: Allergies Allergy/AdvReac Type Severity Reaction Status Date / Time No Known Allergies Allergy Verified 09/03/19 10:41 - Home Medications Home Medications: Ambulatory Orders Levothyroxine Sodium [Levo-T] 125 mcg PO DAILY 08/10/16 Memantine HCl [Namenda Xr] 14 mg PO DAILY 08/10/16 Albuterol 2.5/Ipratropium 0.5 [Duoneb -] 1 amp NEB Q4H PRN #0 amp 08/14/16 Gabapentin [Neurontin -] 300 mg PO BID capsule 08/14/16 Albuterol 0.083% Nebulizer Zehra [Ventolin 0.083% Nebulizer Soln -] 1 amp NEB Q4H PRN #0 amp 09/04/16 Aspirin Coated [Ecotrin -] 81 mg PO DAILY tablet.ec 09/04/16 Ramipril [Altace] 2.5 mg PO DAILY #30 capsule 09/04/16 Benzonatate 200 mg PO DAILY 06/18/17 Carvedilol 6.25 mg PO BID 06/18/17 Cholecalciferol (Vitamin D3) [Vitamin D3 -] 3,000 unit PO DAILY 06/18/17 Olopatadine HCl [Pazeo] 1 drop OU DAILY 06/18/17 Simvastatin 40 mg PO DAILY 06/18/17 Sitagliptin Phosphate [Januvia] 100 mg PO DAILY 06/18/17 Glipizide/Metformin HCl [Glipizide-Metformin 5-500 mg] 1 each PO BID 06/19/17 Budesonide/Formeterol Fumarate [SYMBICORT 160/4.5mcg -] 1 inh PO BID 10/01/18 Montelukast Sodium [Singulair] 10 mg PO DAILY 10/01/18 Acetaminophen [Tylenol .Regular Strength -] 650 mg PO Q6H PRN tablet 12/09/18 Guaifenesin [Robitussin -] 10 ml PO Q6H PRN cup 12/09/18 Methylprednisolone Na Succ [Solu-Medrol -] 40 mg IVPUSH Q8H vial 12/09/18 Pantoprazole Sodium [Protonix -] 40 mg PO DAILY 30 Days #30 tablet.ec 12/09/18 Prednisone 10 mg PO DAILY #30 tablet 12/09/18 Lidocaine 5% Patch [Lidoderm Patch -] 1 patch TP DAILY #30 patch 09/03/19 Family Medical History Family Hx Coronary Artery Disease: Father ([place] ) Family Hx Diabetes: Mother () Review of Systems - Review of Systems Constitutional: reports: Malaise, Weakness Eyes: reports: No Symptoms HENT: reports: No Symptoms Neck: reports: No Symptoms Cardiovascular: reports: Chest Pain Respiratory: reports: Cough Gastrointestinal: reports: No Symptoms Genitourinary: reports: No Symptoms Breasts: reports: No Symptoms Reported Musculoskeletal: reports: No Symptoms Integumentary: reports: No Symptoms Neurological: reports: Weakness Endocrine: reports: No Symptoms Hematology/Lymphatic: reports: No Symptoms Psychiatric: reports: No Symptoms Pain Intensity: 4 Physical Examination Vital Signs: Vital Signs Temperature 101.9 F H 09/20/19 19:30 Pulse Rate 82 09/20/19 18:59 Respiratory Rate 18 09/20/19 18:59 Blood Pressure 126/59 L 09/20/19 18:59 O2 Sat by Pulse Oximetry (%) 88 L 09/20/19 18:59 Constitutional: Yes: No Distress, Calm, Obese Eyes: Yes: WNL, Conjunctiva Clear, EOM Intact, PERRL HENT: Yes: WNL, Atraumatic, Normocephalic Neck: Yes: WNL, Supple, Trachea Midline Cardiovascular: Yes: WNL, Regular Rate and Rhythm, S1, S2 Respiratory: Yes: Regular, Cough, Diminished, On Nasal O2, Rhonchi Gastrointestinal: Yes: WNL, Normal Bowel Sounds, Soft, Abdomen, Obese ...Rectal Exam: Yes: Deferred Renal/: Yes: WNL Breast(s): Yes: Left (Mastectomy) Musculoskeletal: Yes: WNL Extremities: Yes: WNL Edema: No Peripheral Pulses WNL: Yes Integumentary: Yes: WNL Neurological: Yes: Alert, Confusion, Cran Nerves II-XII Intact ...Motor Strength: WNL Psychiatric: Yes: WNL, Alert Labs: CBC, BMP 09/20/19 19:20 09/20/19 19:20 Laboratory Results - last 24 hr 09/20/19 09/20/19 09/20/19 19:20 19:20 19:20 WBC 11.2 H RBC 5.24 H Hgb 13.9 Hct 42.6 MCV 81.3 MCH 26.5 MCHC 32.7 RDW 15.2 Plt Count 208 MPV 9.9 Absolute Neuts (auto) 9.2 H Neutrophils % 82.1 D Lymphocytes % 7.4 L D Monocytes % 8.6 Eosinophils % 1.4 Basophils % 0.5 Nucleated RBC % 0 PT with INR 12.20 INR 1.03 PTT (Actin FS) 35.9 Anticoagulation Therapy Puncture Site ABG pH ABG pCO2 at Pt Temp ABG pO2 at Pt Temp ABG HCO3 ABG O2 Sat (Measured) ABG O2 Content ABG Base Excess Jh Test VBG pH POC VBG pCO2 POC VBG pO2 VBG HCO3 VBG O2 Sat (David) VBG Base Excess Carboxyhemoglobin Methemoglobin O2 Delivery Device Oxygen Flow Rate Vent Mode Vent Rate Mechanical Rate Pressure Support Vent Sodium Potassium Chloride Carbon Dioxide Anion Gap BUN Creatinine Est GFR (CKD-EPI)AfAm Est GFR (CKD-EPI)NonAf Random Glucose Lactic Acid Calcium Total Bilirubin AST ALT Alkaline Phosphatase Troponin I 0.05 B-Natriuretic Peptide Total Protein Albumin Urine Color Urine Appearance Urine pH Ur Specific [place] Urine Protein Urine Glucose (UA) Urine Ketones Urine Blood Urine Nitrite Urine Bilirubin Urine Urobilinogen Ur Leukocyte Esterase Influenza A (Rapid) Influenza B (Rapid) 09/20/19 09/20/19 09/20/19 19:20 19:20 19:20 WBC RBC Hgb Hct MCV MCH MCHC RDW Plt Count MPV Absolute Neuts (auto) Neutrophils % Lymphocytes % Monocytes % Eosinophils % Basophils % Nucleated RBC % PT with INR INR PTT (Actin FS) Anticoagulation Therapy Puncture Site ABG pH ABG pCO2 at Pt Temp ABG pO2 at Pt Temp ABG HCO3 ABG O2 Sat (Measured) ABG O2 Content ABG Base Excess Jh Test VBG pH 7.39 POC VBG pCO2 47.5 POC VBG pO2 54.2 H VBG HCO3 27.8 VBG O2 Sat (David) 84.6 H VBG Base Excess 2.6 H Carboxyhemoglobin Methemoglobin O2 Delivery Device Oxygen Flow Rate Vent Mode Vent Rate Mechanical Rate Pressure Support Vent Sodium 140 Potassium 3.8 Chloride 103 Carbon Dioxide 27 Anion Gap 10 BUN 17.3 Creatinine 0.9 Est GFR (CKD-EPI)AfAm 73.52 Est GFR (CKD-EPI)NonAf 63.43 Random Glucose 68 L Lactic Acid 2.0 Calcium 8.9 Total Bilirubin 0.6 AST 30 ALT 23 Alkaline Phosphatase 70 Troponin I B-Natriuretic Peptide 68.8 Total Protein 8.0 Albumin 3.7 Urine Color Urine Appearance Urine pH Ur Specific [place] Urine Protein Urine Glucose (UA) Urine Ketones Urine Blood Urine Nitrite Urine Bilirubin Urine Urobilinogen Ur Leukocyte Esterase Influenza A (Rapid) Influenza B (Rapid) 09/20/19 09/20/19 09/20/19 19:20 19:25 19:50 WBC RBC Hgb Hct MCV MCH MCHC RDW Plt Count MPV Absolute Neuts (auto) Neutrophils % Lymphocytes % Monocytes % Eosinophils % Basophils % Nucleated RBC % PT with INR INR PTT (Actin FS) Anticoagulation Therapy No Result Required. Puncture Site No Result Required. ABG pH 7.40 ABG pCO2 at Pt Temp 44.0 ABG pO2 at Pt Temp 96.4 ABG HCO3 26.7 ABG O2 Sat (Measured) 97.0 ABG O2 Content 17.1 ABG Base Excess 2.0 Jh Test No Result Required. VBG pH POC VBG pCO2 POC VBG pO2 VBG HCO3 VBG O2 Sat (David) VBG Base Excess Carboxyhemoglobin 1.1 Methemoglobin < 1.0 O2 Delivery Device No Result Required. Oxygen Flow Rate No Result Required. Vent Mode No Result Required. Vent Rate No Result Required. Mechanical Rate No Result Required. Pressure Support Vent No Result Required. Sodium Potassium Chloride Carbon Dioxide Anion Gap BUN Creatinine Est GFR (CKD-EPI)AfAm Est GFR (CKD-EPI)NonAf Random Glucose Lactic Acid Calcium Total Bilirubin AST ALT Alkaline Phosphatase Troponin I B-Natriuretic Peptide Total Protein Albumin Urine Color Yellow Urine Appearance Clear Urine pH 5.0 Ur Specific [place] 1.020 Urine Protein Negative Urine Glucose (UA) Negative Urine Ketones Negative Urine Blood Negative Urine Nitrite Negative Urine Bilirubin Negative Urine Urobilinogen 1.0 Ur Leukocyte Esterase Negative Influenza A (Rapid) Negative Influenza B (Rapid) Negative Intake & Output 09/17/19 09/18/19 09/19/19 09/20/19 23:59 23:59 23:59 23:59 Weight 79.832 kg Current Medications Generic Name Dose Route Start Last Admin Trade Name Freq PRN Reason Stop Dose Admin Acetaminophen 650 mg 09/21/19 02:00 Tylenol - PO Q6H PRN FEVER Albuterol/Ipratropium 1 amp 09/20/19 22:30 Duoneb - NEB Q6H PRN SHORTNESS OF BREATH Aspirin 81 mg 09/21/19 10:00 Asa - PO DAILY [facility] Atorvastatin Calcium 20 mg 09/21/19 22:00 Lipitor - PO HS ANU Budesonide/Formoterol Fumarate 2 puff 09/20/19 22:00 Symbicort 160/4.5mcg - IH BID ANU Heparin Sodium (Porcine) 5,000 unit 09/20/19 22:00 09/20/19 22:09 Heparin - SQ 5,000 unit BID ANU Administration Azithromycin 500 mg in 250 mls @ 250 mls/hr 09/21/19 10:00 Zithromax 500mg Ivpb (Pre-Docked) IVPB DAILY [facility] Ceftriaxone Sodium 1 gm/ 50 mls @ 100 mls/hr 09/21/19 10:00 Dextrose IVPB DAILY [facility] Protocol Levothyroxine Sodium 125 mcg 09/21/19 07:00 Synthroid - PO DAILY@0700 [facility] Montelukast Sodium 10 mg 09/20/19 22:00 Singulair - PO HS [facility] Imaging - Results Chest X-ray: Image Reviewed EKG: Image Reviewed Problem List - Problems (1) Chest pain Assessment/Plan: r/o ACS Likely Pleuritic secondary to cough/pneumonia HEART Score 5 ARETHA 3 Continue cardiac monitoring EKG- NSR with RBBB, left anterior fasicular block, no change compared to prior study Serial Enzymes Appreciate Cardiology consult Echo Asa given in ED, will continue Code(s): R07.9 - CHEST PAIN, UNSPECIFIED (2) Sepsis Assessment/Plan: Sepsis Criteria Met: T 101.9, WBC 11.2, Spo2 88% Chest Xray image suspicious for patchy bilateral infiltrates Blood Cultures, Urine Cultures-pending Continue ABX Appreciate ID consult Monitor CBC, BMP Lactic Acid 2.0 Maintain MAP > 65 Tylenol prn O2 Duonebs Code(s): A41.9 - SEPSIS, UNSPECIFIED ORGANISM (3) Pneumonia Assessment/Plan: CURB65 Score 2 Will treat for CAP Blood Cultures pending Urine Culture-pending Urine Legionella Vancomycin and Zosyn was given in ED Will start on Ceftriaxone and Azithromycin for CAP, pending blood culture results Appreciate ID consult Monitor CBC Monitor vitals O2 Code(s): J18.9 - PNEUMONIA, UNSPECIFIED ORGANISM (4) Cough Assessment/Plan: Likely due to Pneumonia vs COPD Chest Xray reviewed ABG reviewed Monitor CBC Monitor vitals Guaifenesin prn Code(s): R05 - COUGH (5) Fever Assessment/Plan: Likely secondary to infection Empirically treating for Pneumonia Awaiting Blood and Urine cultures Monitor vitals Tylenol prn Code(s): R50.9 - FEVER, UNSPECIFIED (6) Leukocytosis Assessment/Plan: Likely secondary to Pneumonia Blood Cultures-pending Urine Culture-pending Ofirmev given in ED Tylenol prn Monitor CBC Monitor vitals Code(s): D72.829 - ELEVATED WHITE BLOOD CELL COUNT, UNSPECIFIED (7) COPD (chronic obstructive pulmonary disease) Assessment/Plan: Chest Xray image suggestive of vascular congestion, ?patchy bilateral infiltrates, awaiting official report ABG- 7.40/44/96.0/.7/97 Continue O2 Continue Symbicort, Singulair Duonebs Appreciate Pulmonology consult Monitor CBC Monitor vitals Code(s): J44.9 - CHRONIC OBSTRUCTIVE PULMONARY DISEASE, UNSPECIFIED Qualifiers: COPD type: unspecified COPD Qualified Code(s): J44.9 - Chronic obstructive pulmonary disease, unspecified (8) Diabetes Assessment/Plan: stable BGMs ISS Will hold Metformin in response to Sepsis likely due to Pneumonia Continue Januvia Diabetic Diet HgbA1c in am Monitor BMP Code(s): E11.9 - TYPE 2 DIABETES MELLITUS WITHOUT COMPLICATIONS Qualifiers: Diabetes mellitus type: type 2 Diabetes mellitus halfway insulin use: without machine long goods helper use Diabetes mellitus complication status: without complication Qualified Code(s): E11.9 - Type 2 diabetes mellitus without complications (9) Hypercholesterolemia Assessment/Plan: stable Continue Lipitor Monitor LFTs Code(s): E78.0 - PURE HYPERCHOLESTEROLEMIA * DO NOT USE * (10) Hypertension Assessment/Plan: stable Monitor BP Will need to verify office records or home pharmacy in am for current med regimen, patient unable to verify Monitor renal function Code(s): I10 - ESSENTIAL (PRIMARY) HYPERTENSION Qualifiers: Hypertension type: essential hypertension Qualified Code(s): I10 - Essential (primary) hypertension (11) Hypothyroidism Assessment/Plan: Continue Levothyroxine TSH in am Code(s): E03.9 - HYPOTHYROIDISM, UNSPECIFIED Qualifiers: Hypothyroidism type: unspecified Qualified Code(s): E03.9 - Hypothyroidism , unspecified (12) HARISH (obstructive sleep apnea) Assessment/Plan: Continue O2 Per patient, not on CPAP at home Appreciate Pulmonology consult Monitor vitals Code(s): G47.33 - OBSTRUCTIVE SLEEP APNEA (ADULT) (PEDIATRIC) Assessment/Plan This is a 73 y/o woman with a PMHx of HTN, HLD, NIDDM, COPD/HARISH (2L, home O2), Hypothyroidism, Breast Ca s/p L- Mastectomy, (no active Chemo or RT). Admitted to Telemetry for Chest Pain, Sepsis, Pneumonia for further evaluation of their emergent condition. Plan: See Problem List FEN Po fluids as tolerated Replete lytes prn Low Na, Diabetic Diet DVT ppx OOB SCDs Heparin SQ Dispo: Requires Inpatient Care Visit type - Emergency Visit Emergency Visit: Yes ED Registration Date: 09/20/19 Care time: The patient presented to the Emergency Department on the above date and was hospitalized for further evaluation of their emergent condition. - New Patient This patient is new to me today: Yes Date on this admission: 09/20/19 - Critical Care Critical Care patient: No
--- NOTE | 2019-09-20 21:40 | PDOC ---
Attending Attestation - Resident Resident Name: Ivonne Turner - ED Attending Attestation I have performed the following: I have examined & evaluated the patient, The case was reviewed & discussed with the resident, I agree w/resident's findings & plan - HPI HPI: 09/20/19 21:40 73 year old female with PMH HTN, HLD, NIDDM, COPD/HARISH (on 2 L NC), and breast CA (L mastectomy, no chemo/radiation) presented to ED for chest pain and cough. Pt reported a dry cough x3 days, associated with generalized weakness/malaise. She reported development of constant generalized chest pain worse with coughing x2 days ago. - Physicial Exam PE: 09/20/19 21:40 Agree with resident note - Medical Decision Making 09/20/19 21:41 Pt has elevated WBC count and a fever. She will be treated with abx and admitted.
[2019-09-20] MEDS ORDERED: HEPARIN NA (PORCINE) 5,000 UNITS/ML 1ML VIAL ONE (22:05)
[2019-09-20] MEDS: HEPARIN NA (PORCINE) 5,000 UNITS/ML 1ML VIAL SQ SCH (22:09)
[2019-09-20] MEDS ORDERED: ALBUTEROL SO4 2.5/IPRATROPIUM 0.5 INH SOL 3 ML VIAL.NEB. NEB PRN (22:30)
[2019-09-20] MEDS ORDERED: MONTELUKAST NA 10 MG TABLET ONE (23:17)
[2019-09-20] MEDS: BUDESONIDE/FORMETEROL FUMARATE 160/4.5 mcg INHALER IH SCH (23:47)
[2019-09-20] MEDS: MONTELUKAST NA 10 MG TABLET PO SCH (23:47)
[2019-09-21] MEDS ORDERED: SODIUM CHLORIDE 500 ML IV STA ×2 (02:40→02:47)
[2019-09-21] MEDS ORDERED: guaiFENesin 200 MG/10 ML 10 ML UNIT-DOSE CUPS ONE (03:21)
[2019-09-21] MEDS: guaiFENesin/D-METHORPHAN HB 10 ML UNIT-DOSE CUPS PO PRN ×2 (03:23→11:14)
--- NOTE | 2019-09-21 03:49 | HOSP ---
Subjective - Review of Symptoms Events since last encounter: Hospitalist Encounter Notified by the RN, that the patient was hypotensive after two repeat BP checks. Concerning for Severe Sepsis Orders placed, will go to assess patient Subjective: Arrived to bedside, patient is awake, alert oriented to name, year, current president. Patient is Azerbaijani speaking. Patient reports continued cough, with pleuritic CP. Upon auscultation of lungs, coarse rhonchi noted. IV fluid bolus d /cd. BP now 101/65, P 65, Rectal temp 98.6, BGM was 63 per RN. OJ given by RN. Will continue to monitor closely. Pulmonary: Yes: Cough, Pleuritic Chest Pain Physical Examination Vital Signs: Vital Signs Temperature 98.6 F 09/21/19 02:45 Pulse Rate 65 09/21/19 03:39 Respiratory Rate 22 H 09/21/19 03:39 Blood Pressure 101/65 09/21/19 03:39 O2 Sat by Pulse Oximetry (%) 96 09/21/19 03:39 Constitutional: Yes: Well Nourished, No Distress, Calm, Obese Eyes: Yes: WNL, Conjunctiva Clear, EOM Intact, PERRL HENT: Yes: WNL, Normocephalic Neck: Yes: WNL, Supple, Trachea Midline Cardiovascular: Yes: Regular Rate and Rhythm, S1, S2 Respiratory: Yes: Diminished (bases), On Nasal O2, Rhonchi (throughout) Gastrointestinal: Yes: WNL, Normal Bowel Sounds, Soft, Abdomen, Obese ...Rectal Exam: Yes: Deferred Renal/: Yes: WNL Breast(s): Yes: Left (Mastectomy) Musculoskeletal: Yes: WNL Extremities: Yes: WNL Edema: No Peripheral Pulses WNL: Yes Neurological: Yes: Alert, Cran Nerves II-XII Intact ...Motor Strength: WNL Psychiatric: Yes: Alert Labs: CBC, BMP 09/20/19 19:20 09/20/19 19:20 Laboratory Results - last 24 hr 09/20/19 09/20/19 09/20/19 19:20 19:20 19:20 WBC 11.2 H RBC 5.24 H Hgb 13.9 Hct 42.6 MCV 81.3 MCH 26.5 MCHC 32.7 RDW 15.2 Plt Count 208 MPV 9.9 Absolute Neuts (auto) 9.2 H Neutrophils % 82.1 D Lymphocytes % 7.4 L D Monocytes % 8.6 Eosinophils % 1.4 Basophils % 0.5 Nucleated RBC % 0 PT with INR 12.20 INR 1.03 PTT (Actin FS) 35.9 Anticoagulation Therapy Puncture Site ABG pH ABG pCO2 at Pt Temp ABG pO2 at Pt Temp ABG HCO3 ABG O2 Sat (Measured) ABG O2 Content ABG Base Excess Jh Test VBG pH POC VBG pCO2 POC VBG pO2 VBG HCO3 VBG O2 Sat (David) VBG Base Excess Carboxyhemoglobin Methemoglobin O2 Delivery Device Oxygen Flow Rate Vent Mode Vent Rate Mechanical Rate Pressure Support Vent Sodium Potassium Chloride Carbon Dioxide Anion Gap BUN Creatinine Est GFR (CKD-EPI)AfAm Est GFR (CKD-EPI)NonAf POC Glucometer Random Glucose Lactic Acid Calcium Total Bilirubin AST ALT Alkaline Phosphatase Troponin I 0.05 B-Natriuretic Peptide Total Protein Albumin Urine Color Urine Appearance Urine pH Ur Specific [place] Urine Protein Urine Glucose (UA) Urine Ketones Urine Blood Urine Nitrite Urine Bilirubin Urine Urobilinogen Ur Leukocyte Esterase Influenza A (Rapid) Influenza B (Rapid) 09/20/19 09/20/19 09/20/19 19:20 19:20 19:20 WBC RBC Hgb Hct MCV MCH MCHC RDW Plt Count MPV Absolute Neuts (auto) Neutrophils % Lymphocytes % Monocytes % Eosinophils % Basophils % Nucleated RBC % PT with INR INR PTT (Actin FS) Anticoagulation Therapy Puncture Site ABG pH ABG pCO2 at Pt Temp ABG pO2 at Pt Temp ABG HCO3 ABG O2 Sat (Measured) ABG O2 Content ABG Base Excess Jh Test VBG pH 7.39 POC VBG pCO2 47.5 POC VBG pO2 54.2 H VBG HCO3 27.8 VBG O2 Sat (David) 84.6 H VBG Base Excess 2.6 H Carboxyhemoglobin Methemoglobin O2 Delivery Device Oxygen Flow Rate Vent Mode Vent Rate Mechanical Rate Pressure Support Vent Sodium 140 Potassium 3.8 Chloride 103 Carbon Dioxide 27 Anion Gap 10 BUN 17.3 Creatinine 0.9 Est GFR (CKD-EPI)AfAm 73.52 Est GFR (CKD-EPI)NonAf 63.43 POC Glucometer Random Glucose 68 L Lactic Acid 2.0 Calcium 8.9 Total Bilirubin 0.6 AST 30 ALT 23 Alkaline Phosphatase 70 Troponin I B-Natriuretic Peptide 68.8 Total Protein 8.0 Albumin 3.7 Urine Color Urine Appearance Urine pH Ur Specific [place] Urine Protein Urine Glucose (UA) Urine Ketones Urine Blood Urine Nitrite Urine Bilirubin Urine Urobilinogen Ur Leukocyte Esterase Influenza A (Rapid) Influenza B (Rapid) 09/20/19 09/20/19 09/20/19 19:20 19:25 19:50 WBC RBC Hgb Hct MCV MCH MCHC RDW Plt Count MPV Absolute Neuts (auto) Neutrophils % Lymphocytes % Monocytes % Eosinophils % Basophils % Nucleated RBC % PT with INR INR PTT (Actin FS) Anticoagulation Therapy No Result Required. Puncture Site No Result Required. ABG pH 7.40 ABG pCO2 at Pt Temp 44.0 ABG pO2 at Pt Temp 96.4 ABG HCO3 26.7 ABG O2 Sat (Measured) 97.0 ABG O2 Content 17.1 ABG Base Excess 2.0 Jh Test No Result Required. VBG pH POC VBG pCO2 POC VBG pO2 VBG HCO3 VBG O2 Sat (David) VBG Base Excess Carboxyhemoglobin 1.1 Methemoglobin < 1.0 O2 Delivery Device No Result Required. Oxygen Flow Rate No Result Required. Vent Mode No Result Required. Vent Rate No Result Required. Mechanical Rate No Result Required. Pressure Support Vent No Result Required. Sodium Potassium Chloride Carbon Dioxide Anion Gap BUN Creatinine Est GFR (CKD-EPI)AfAm Est GFR (CKD-EPI)NonAf POC Glucometer Random Glucose Lactic Acid Calcium Total Bilirubin AST ALT Alkaline Phosphatase Troponin I B-Natriuretic Peptide Total Protein Albumin Urine Color Yellow Urine Appearance Clear Urine pH 5.0 Ur Specific [place] 1.020 Urine Protein Negative Urine Glucose (UA) Negative Urine Ketones Negative Urine Blood Negative Urine Nitrite Negative Urine Bilirubin Negative Urine Urobilinogen 1.0 Ur Leukocyte Esterase Negative Influenza A (Rapid) Negative Influenza B (Rapid) Negative 09/21/19 09/21/19 09/21/19 00:05 00:05 02:50 WBC RBC Hgb Hct MCV MCH MCHC RDW Plt Count MPV Absolute Neuts (auto) Neutrophils % Lymphocytes % Monocytes % Eosinophils % Basophils % Nucleated RBC % PT with INR INR PTT (Actin FS) Anticoagulation Therapy Puncture Site ABG pH ABG pCO2 at Pt Temp ABG pO2 at Pt Temp ABG HCO3 ABG O2 Sat (Measured) ABG O2 Content ABG Base Excess Jh Test VBG pH POC VBG pCO2 POC VBG pO2 VBG HCO3 VBG O2 Sat (David) VBG Base Excess Carboxyhemoglobin Methemoglobin O2 Delivery Device Oxygen Flow Rate Vent Mode Vent Rate Mechanical Rate Pressure Support Vent Sodium Potassium Chloride Carbon Dioxide Anion Gap BUN Creatinine Est GFR (CKD-EPI)AfAm Est GFR (CKD-EPI)NonAf POC Glucometer 61 Random Glucose Lactic Acid 1.4 Calcium Total Bilirubin AST ALT Alkaline Phosphatase Troponin I 0.05 B-Natriuretic Peptide Total Protein Albumin Urine Color Urine Appearance Urine pH Ur Specific [place] Urine Protein Urine Glucose (UA) Urine Ketones Urine Blood Urine Nitrite Urine Bilirubin Urine Urobilinogen Ur Leukocyte Esterase Influenza A (Rapid) Influenza B (Rapid) Vital Signs - 24 hr 09/20/19 09/20/19 09/20/19 18:59 19:30 21:00 Temperature 100.3 F H 101.9 F H Pulse Rate 82 Pulse Rate [ 68 Left Radial] Respiratory 18 26 H Rate Blood Pressure 126/59 L Blood Pressure 121/48 L [Left Arm] Blood Pressure [Right Arm] O2 Sat by Pulse 88 L 95 Oximetry (%) 09/21/19 09/21/19 09/21/19 02:20 02:45 03:39 Temperature 98.6 F Pulse Rate Pulse Rate [ 57 L 60 65 Left Radial] Respiratory 20 20 22 H Rate Blood Pressure Blood Pressure 75/48 L 94/51 L [Left Arm] Blood Pressure 101/65 [Right Arm] O2 Sat by Pulse 95 96 96 Oximetry (%) Hospitalist Encounter Assessment: This is a 73 y/o woman with a PMHx of HTN, HLD, NIDDM, COPD/HARISH (2L, home O2), Hypothyroidism, Breast Ca s/p L- Mastectomy, (no active Chemo or RT). Admitted to Telemetry for Chest Pain, Sepsis, Pneumonia Plan: D50 1/2 amp now Repeat BGM 30 post medication Continue cardiac monitoring Hold Juluvia Outcome: 2nd Troponin 0.05
[2019-09-21] MEDS ORDERED: DEXTROSE 50%-WATER - 25 GM/50 ML VIAL IVPUSH ONE ×2 (03:57→05:15)
[2019-09-21] MEDS ORDERED: DEXTROSE 50%-WATER 25 GM/50 ML DISP.SYRIN ONE (05:13)
[2019-09-21 07:20] LABS: BASO % 0.6 % (0-2.0); EOS % 3.6 % (0-4.5); HEMATOCRIT 38.4 % (32.4-45.2); HEMOGLOBIN 12.6 GM/dL (10.7-15.3); LYMPH % 6.9 % (8-40); MCH 26.6 pg (25.7-33.7); MCHC 32.8 g/dl (32.0-36.0); MEAN CELL VOLUME 81.2 fl (80-96); MEAN PLT VOLUME 9.1 fl (7.5-11.1); MONO % 9.7 % (3.8-10.2); NEUT % 79.2 % (42.8-82.8); PLATELET COUNT 154 K/MM3 (134-434); RBC 4.73 M/mm3 (3.60-5.2); RDW 15.4 % (11.6-15.6); WHITE BLOOD COUNT 6.8 K/mm3 (4.0-10.0)
[2019-09-21 07:37] VITALS: BMI 32.9
[2019-09-21 08:01] LABS: BLOOD UREA NITROGEN 17.7 mg/dL (7-18); CALCIUM 8.4 mg/dL (8.5-10.1); CREATININE 0.8 mg/dL (0.55-1.3); MAGNESIUM 1.5 mg/dL (1.8-2.4); PHOSPHOROUS 4.2 mg/dL (2.5-4.9); POTASSIUM 3.6 mmol/L (3.5-5.1)
[2019-09-21] MEDS: ACETAMINOPHEN 325 MG TABLET (FP) PO PRN ×2 (08:26→17:46)
[2019-09-21] MEDS ORDERED: DEXTROSE 5%-WATER - 50 ML IVPB ONE (08:31)
[2019-09-21] MEDS ORDERED: cefTRIAXone SODIUM 1 GM VIAL ONE (08:31)
[2019-09-21] MEDS: HEPARIN NA (PORCINE) 5,000 UNITS/ML 1ML VIAL SQ SCH ×2 (09:03→22:02)
[2019-09-21] MEDS: AZITHROMYCIN IVPB 500 MG/250 ML BAG IVPB SCH (09:03)
[2019-09-21] MEDS: ASPIRIN 81 MG CHEWABLE TABLETS PO SCH (09:03)
[2019-09-21] MEDS: CEFTRIAXONE 1 GM in DEXTROSE 5%-WATER - 50 ML IVPB SCH (09:05)
[2019-09-21] MEDS: LEVOTHYROXINE NA 125 MCG TABLET (FP) PO SCH (11:14)
--- NOTE | 2019-09-21 11:39 | CON.CARD ---
Consult Consult Specialty:: Cardiology Referred by:: Ronit Erazo MD Reason for Consultation:: Dyspnea, cough - History of Present Illness Chief Complaint: Dyspnea, cough, post-tussive chest tightness History of Present Illness: Patient is a 73 year old female of descent with underlying history of breast CA s/p mastectomy s/p chemotherapy without radiation therapy, negative metastatic disease, COPD (2L NC @ night, symbicort), OSAS, ILD, HTN, hypercholesterolemia, type 2 diabetes mellitus, diabetic neuropathy, hypothyroidism and diastolic dysfunction, last visit 10/11/2018. presents with shortness of breath, productive cough, and chest pain while coughing. Denies palpitations, near or true syncope, orthopnea, PND or LE edema. 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: Other (Mild cognitive defect) Cardio/Vascular: Yes: HTN, Hyperlipdemia Pulmonary: Yes: COPD, O2 Dependent, Sleep Apnea, Other (Influenza) ...: No Endocrine: Yes: Diabetes Mellitus, Hypothyroidism - Past Surgical History Past Surgical History: Yes: Mastectomy - Alcohol/Substance Use Hx Alcohol Use: No History of Substance Use: reports: None - Smoking History Smoking history: Never smoked Have you smoked in the past 12 months: No Aproximately how many cigarettes per day: 0 - Social History ADL: Independent History of Recent Travel: No Home Medications - Allergies Allergies/Adverse Reactions: Allergies Allergy/AdvReac Type Severity Reaction Status Date / Time No Known Allergies Allergy Verified 09/03/19 10:41 - Home Medications Home Medications: Ambulatory Orders Levothyroxine Sodium [Levo-T] 125 mcg PO DAILY 08/10/16 Memantine HCl [Namenda Xr] 14 mg PO DAILY 08/10/16 Albuterol 2.5/Ipratropium 0.5 [Duoneb -] 1 amp NEB Q4H PRN #0 amp 08/14/16 Gabapentin [Neurontin -] 300 mg PO BID capsule 08/14/16 Albuterol 0.083% Nebulizer Zehra [Ventolin 0.083% Nebulizer Soln -] 1 amp NEB Q4H PRN #0 amp 09/04/16 Aspirin Coated [Ecotrin -] 81 mg PO DAILY tablet.ec 09/04/16 Ramipril [Altace] 2.5 mg PO DAILY #30 capsule 09/04/16 Benzonatate 200 mg PO DAILY 06/18/17 Carvedilol 6.25 mg PO BID 06/18/17 Cholecalciferol (Vitamin D3) [Vitamin D3 -] 3,000 unit PO DAILY 06/18/17 Olopatadine HCl [Pazeo] 1 drop OU DAILY 06/18/17 Simvastatin 40 mg PO DAILY 06/18/17 Sitagliptin Phosphate [Januvia] 100 mg PO DAILY 06/18/17 Glipizide/Metformin HCl [Glipizide-Metformin 5-500 mg] 1 each PO BID 06/19/17 Budesonide/Formeterol Fumarate [SYMBICORT 160/4.5mcg -] 1 inh PO BID 10/01/18 Montelukast Sodium [Singulair] 10 mg PO DAILY 10/01/18 Acetaminophen [Tylenol .Regular Strength -] 650 mg PO Q6H PRN tablet 12/09/18 Guaifenesin [Robitussin -] 10 ml PO Q6H PRN cup 12/09/18 Methylprednisolone Na Succ [Solu-Medrol -] 40 mg IVPUSH Q8H vial 12/09/18 Pantoprazole Sodium [Protonix -] 40 mg PO DAILY 30 Days #30 tablet.ec 12/09/18 Prednisone 10 mg PO DAILY #30 tablet 12/09/18 Lidocaine 5% Patch [Lidoderm Patch -] 1 patch TP DAILY #30 patch 09/03/19 Review of Systems - Review of Systems Cardiovascular: reports: Chest Pain, Shortness of Breath Respiratory: reports: Cough, SOB, Wheezing Vital Signs: Vital Signs Temperature 98.4 F 09/21/19 09:12 Pulse Rate 69 09/21/19 09:12 Respiratory Rate 18 09/21/19 09:12 Blood Pressure 97/47 L 09/21/19 09:12 O2 Sat by Pulse Oximetry (%) 97 09/21/19 07:27 Constitutional: Yes: No Distress, Calm Neck: Yes: Supple Respiratory: Yes: Regular, Cough, Diminished, SOB Gastrointestinal: Yes: Normal Bowel Sounds, Soft, Abdomen, Obese Cardiovascular: Yes: Regular Rate and Rhythm JVD: No Carotid Bruit: No Heart Sounds: Yes: S1, S2 Edema: No - Other Data Labs, Other Data: CBC, BMP 09/21/19 06:43 09/21/19 06:43 INR, PTT INR 1.03 (0.83-1.09) 09/20/19 19:20 Troponin, BNP 09/20/19 09/20/19 09/21/19 19:20 19:20 00:05 Troponin I 0.05 0.05 B-Natriuretic Peptide 68.8 09/21/19 06:43 Troponin I 0.05 B-Natriuretic Peptide Troponin, BNP 09/20/19 09/20/19 09/21/19 19:20 19:20 00:05 Troponin I 0.05 0.05 B-Natriuretic Peptide 68.8 09/21/19 06:43 Troponin I 0.05 B-Natriuretic Peptide NSR @ 78 RBBB, LAFB Ejection Fraction %: LVEF > or = 40 % Imaging - Results Chest X-ray: Report Reviewed (Congestion) Problem List - Problems (1) Cough Code(s): R05 - COUGH (2) COPD exacerbation Code(s): J44.1 - CHRONIC OBSTRUCTIVE PULMONARY DISEASE W (ACUTE) EXACERBATION (3) Chest discomfort Code(s): R07.89 - OTHER CHEST PAIN (4) Diabetes Code(s): E11.9 - TYPE 2 DIABETES MELLITUS WITHOUT COMPLICATIONS Qualifiers: Diabetes mellitus type: type 2 Diabetes mellitus director long term care insulin use: without director long term care use Diabetes mellitus complication status: without complication Qualified Code(s): E11.9 - Type 2 diabetes mellitus without complications (5) Hyperlipidemia associated with type 2 diabetes mellitus Code(s): E11.69 - TYPE 2 DIABETES MELLITUS WITH OTHER SPECIFIED COMPLICATION; E78.5 - HYPERLIPIDEMIA, UNSPECIFIED (6) Hypertension Code(s): I10 - ESSENTIAL (PRIMARY) HYPERTENSION Qualifiers: Hypertension type: essential hypertension Qualified Code(s): I10 - Essential (primary) hypertension (7) Hypothyroidism Code(s): E03.9 - HYPOTHYROIDISM, UNSPECIFIED Qualifiers: Hypothyroidism type: unspecified Qualified Code(s): E03.9 - Hypothyroidism , unspecified (8) Interstitial lung disease Code(s): J84.9 - INTERSTITIAL PULMONARY DISEASE, UNSPECIFIED (9) HARISH (obstructive sleep apnea) Code(s): G47.33 - OBSTRUCTIVE SLEEP APNEA (ADULT) (PEDIATRIC) (10) Reactive airway disease Code(s): J45.909 - UNSPECIFIED ASTHMA, UNCOMPLICATED Qualifiers: Asthma severity: unspecified severity Assessment/Plan 09/12/2019 Brain MRI: Negative for acute stroke 1. Acute COPD exacerbation, history of ILD, atypical post-tussive chest pain 2. CAD with history of sub-endocardial ischemia, angina pectoris 3. Diastolic LV dysfunction with class 0 NYHA classification LV failure 4. HTN 5. DM 6. Hypercholesterolemia 7. Hypothyroidism 8. Peripheral diabetic neuropathy 9. OSAS PLAN: 1. Empiric antibiotics, bronchodilators, IV steroids with GI protection, O2 as needed, singulair 2. Ruled out for MN, BNP low 3. Continue Coreg 6.25 bid and Ramipril 2.5 qd 4. Continue Lipitor 20 qd and ASA 81 qd 5. Thank you for consultative opportunity
--- NOTE | 2019-09-21 12:08 | EKG ---
Test Reason : Blood Pressure : / mmHG Vent. Rate : 078 BPM Atrial Rate : 078 BPM P-R Int : 148 ms QRS Dur : 122 ms QT Int : 370 ms P-R-T Axes : 007 -63 045 degrees QTc Int : 421 ms NORMAL SINUS RHYTHM RIGHT BUNDLE BRANCH BLOCK LEFT ANTERIOR FASCICULAR BLOCK BIFASCICULAR BLOCK ABNORMAL ECG WHEN COMPARED WITH ECG OF 24-APR-2019 08:05, NO SIGNIFICANT CHANGE WAS FOUND Confirmed by CAROL ANN HENDERSON MD ([id number]) on 09/21/2019 12:07:44 PM Referred By: Confirmed By:CAROL ANN HENDERSON MD
--- NOTE | 2019-09-21 12:37 | PN ---
Progress Note, Physician History of Present Illness: Pt seen/ examined chart reviewed awake/ comfortable cough + - Current Medication List Current Medications: Active Medications Acetaminophen (Tylenol -) 650 mg PO Q6H PRN PRN Reason: FEVER Last Admin: 09/21/19 08:26 Dose: 650 mg Albuterol/Ipratropium (Duoneb -) 1 amp NEB Q6H PRN PRN Reason: SHORTNESS OF BREATH Aspirin (Asa -) 81 mg PO DAILY [facility] Last Admin: 09/21/19 09:03 Dose: 81 mg Atorvastatin Calcium (Lipitor -) 20 mg PO HS [facility] Budesonide/Formoterol Fumarate (Symbicort 160/4.5mcg -) 2 puff IH BID ANU Last Admin: 09/20/19 23:47 Dose: 2 puff Guaifenesin (Robitussin Dm -) 10 ml PO Q6H PRN PRN Reason: COUGH Last Admin: 09/21/19 11:14 Dose: 10 ml Heparin Sodium (Porcine) (Heparin -) 5,000 unit SQ BID [facility] Last Admin: 09/21/19 09:03 Dose: 5,000 unit Azithromycin (Zithromax 500mg Ivpb (Pre-Docked)) 500 mg in 250 mls @ 250 mls/ hr IVPB DAILY [facility] Last Admin: 09/21/19 09:03 Dose: 250 mls/hr Ceftriaxone Sodium 1 gm/ (Dextrose) 50 mls @ 100 mls/hr IVPB DAILY [facility]; Protocol Last Admin: 09/21/19 09:05 Dose: 100 mls/hr Levothyroxine Sodium (Synthroid -) 125 mcg PO DAILY@0700 [facility] Last Admin: 09/21/19 11:14 Dose: 125 mcg Methylprednisolone Sodium Succinate (Solu-Medrol -) 40 mg IVPUSH Q6H-IV ANU Montelukast Sodium (Singulair -) 10 mg PO HS [facility] Last Admin: 09/20/19 23:47 Dose: 10 mg - Objective Vital Signs: Vital Signs Temperature 98.4 F 09/21/19 09:12 Pulse Rate 69 09/21/19 09:12 Respiratory Rate 18 09/21/19 09:12 Blood Pressure 97/47 L 09/21/19 09:12 O2 Sat by Pulse Oximetry (%) 96 09/21/19 09:00 Constitutional: Yes: No Distress, Calm, Obese Neck: Yes: Supple Cardiovascular: Yes: Regular Rate and Rhythm Respiratory: Yes: Wheezes Gastrointestinal: Yes: Soft Edema: No Neurological: Yes: Alert Psychiatric: Yes: Alert Labs: CBC, BMP 09/21/19 06:43 09/21/19 06:43 INR, PTT INR 1.03 (0.83-1.09) 09/20/19 19:20 - ....Imaging Chest X-ray: Report Reviewed Problem List - Problems (1) Fever Code(s): R50.9 - FEVER, UNSPECIFIED (2) Pneumonia Code(s): J18.9 - PNEUMONIA, UNSPECIFIED ORGANISM (3) COPD exacerbation Code(s): J44.1 - CHRONIC OBSTRUCTIVE PULMONARY DISEASE W (ACUTE) EXACERBATION (4) COPD exacerbation Code(s): J44.1 - CHRONIC OBSTRUCTIVE PULMONARY DISEASE W (ACUTE) EXACERBATION (5) Diabetes Code(s): E11.9 - TYPE 2 DIABETES MELLITUS WITHOUT COMPLICATIONS Qualifiers: Diabetes mellitus type: type 2 Diabetes mellitus correction insulin use: without correction use Diabetes mellitus complication status: without complication Qualified Code(s): E11.9 - Type 2 diabetes mellitus without complications (6) Interstitial lung disease Code(s): J84.9 - INTERSTITIAL PULMONARY DISEASE, UNSPECIFIED Assessment/Plan Steroids abx Nebulizer treatment oxygen Monitor bgm will follow
[2019-09-21] MEDS ORDERED: PT OWN MED DRAWER 7, Y5N ONE (13:37)
[2019-09-21] MEDS: BUDESONIDE/FORMETEROL FUMARATE 160/4.5 mcg INHALER IH SCH ×2 (13:38→22:08)
[2019-09-21] MEDS: PANTOPRAZOLE 20 MG TABLET PO SCH (13:38)
--- NOTE | 2019-09-21 14:56 | CON.PULM ---
Consult Consult Specialty:: PULM/CCM Referred by:: ATIF Reason for Consultation:: SOB - History of Present Illness Chief Complaint: SOB History of Present Illness: 73 F, Breast CA s/p mastectomy s/p chemotherapy without radiation therapy, negative metastatic disease, Nocturnal O2 dependent COPD, Severe OSAS (NPSG 2017 : RDI 74.7 with severe O2 desaturation to 62%), was previously prescribed CPAP @ 10 cm@ H2O but wasserman not seem to have the device, (?) ILD from previous imaging , HTN, hypercholesterolemia, type 2 diabetes mellitus, diabetic neuropathy, hypothyroidism and diastolic dysfunction. Admitted via the ER due to progressive shortness of breath, productive cough, and chest pain while coughing. No travel history. No sick contacts. No fever or chills. No hemoptysis or night sweats. She does have persistent symptoms consistent with OSAS. 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 No: Asthma, Cancer, Previously Intubated, Pulmonary Embolus ...: No Endocrine: Yes: Diabetes Mellitus, Hypothyroidism - Past Surgical History Past Surgical History: Yes: Mastectomy - Alcohol/Substance Use Hx Alcohol Use: No History of Substance Use: reports: None - Smoking History Smoking history: Never smoked Have you smoked in the past 12 months: No Aproximately how many cigarettes per day: 0 - Social History ADL: Independent History of Recent Travel: No Home Medications - Allergies Allergies/Adverse Reactions: Allergies Allergy/AdvReac Type Severity Reaction Status Date / Time No Known Allergies Allergy Verified 09/03/19 10:41 - Home Medications Home Medications: Ambulatory Orders Levothyroxine Sodium [Levo-T] 125 mcg PO DAILY 08/10/16 Memantine HCl [Namenda Xr] 14 mg PO DAILY 08/10/16 Albuterol 2.5/Ipratropium 0.5 [Duoneb -] 1 amp NEB Q4H PRN #0 amp 08/14/16 Gabapentin [Neurontin -] 300 mg PO BID capsule 08/14/16 Albuterol 0.083% Nebulizer Zehra [Ventolin 0.083% Nebulizer Soln -] 1 amp NEB Q4H PRN #0 amp 09/04/16 Aspirin Coated [Ecotrin -] 81 mg PO DAILY tablet.ec 09/04/16 Ramipril [Altace] 2.5 mg PO DAILY #30 capsule 09/04/16 Benzonatate 200 mg PO DAILY 06/18/17 Carvedilol 6.25 mg PO BID 06/18/17 Cholecalciferol (Vitamin D3) [Vitamin D3 -] 3,000 unit PO DAILY 06/18/17 Olopatadine HCl [Pazeo] 1 drop OU DAILY 06/18/17 Simvastatin 40 mg PO DAILY 06/18/17 Sitagliptin Phosphate [Januvia] 100 mg PO DAILY 06/18/17 Glipizide/Metformin HCl [Glipizide-Metformin 5-500 mg] 1 each PO BID 06/19/17 Budesonide/Formeterol Fumarate [SYMBICORT 160/4.5mcg -] 1 inh PO BID 10/01/18 Montelukast Sodium [Singulair] 10 mg PO DAILY 10/01/18 Acetaminophen [Tylenol .Regular Strength -] 650 mg PO Q6H PRN tablet 12/09/18 Guaifenesin [Robitussin -] 10 ml PO Q6H PRN cup 12/09/18 Methylprednisolone Na Succ [Solu-Medrol -] 40 mg IVPUSH Q8H vial 12/09/18 Pantoprazole Sodium [Protonix -] 40 mg PO DAILY 30 Days #30 tablet.ec 12/09/18 Prednisone 10 mg PO DAILY #30 tablet 12/09/18 Lidocaine 5% Patch [Lidoderm Patch -] 1 patch TP DAILY #30 patch 09/03/19 Review of Systems - Review of Systems Constitutional: reports: Malaise, Weakness. denies: Chills, Fever, Night Sweats , Unintentional Wgt. Loss Eyes: reports: No Symptoms HENT: reports: No Symptoms Neck: reports: No Symptoms Cardiovascular: reports: Chest Pain, Edema, Shortness of Breath. denies: Palpitations Respiratory: reports: Cough, Snoring, SOB, SOB on Exertion. denies: Hemoptysis , Wheezing Gastrointestinal: reports: No Symptoms Genitourinary: reports: No Symptoms Breasts: reports: No Symptoms Reported Musculoskeletal: reports: No Symptoms Integumentary: reports: No Symptoms Neurological: reports: No Symptoms Endocrine: reports: No Symptoms Hematology/Lymphatic: reports: No Symptoms Psychiatric: reports: No Symptoms Physical Exam Vital Sings: Vital Signs Temperature 98.4 F 09/21/19 09:12 Pulse Rate 69 09/21/19 09:12 Respiratory Rate 18 09/21/19 09:12 Blood Pressure 97/47 L 09/21/19 09:12 O2 Sat by Pulse Oximetry (%) 96 09/21/19 09:00 Constitutional: Yes: No Distress, Obese Eyes: Yes: Conjunctiva Clear, EOM Intact HENT: Yes: Atraumatic, Normocephalic Neck: Yes: Supple, Trachea Midline Cardiovascular: Yes: Regular Rate and Rhythm Respiratory: Yes: Cough, Diminished, Rales, Rhonchi, SOB, SOB on Exertion, Tachypnea, Wheezes. No: Accessory Muscle Use, Stridor ...Inspection: Yes: WNL ...Clubbing: No Gastrointestinal: Yes: Normal Bowel Sounds, Soft, Abdomen, Obese Renal/: Yes: WNL Musculoskeletal: Yes: WNL Extremities: Yes: WNL Edema: Yes Peripheral Pulses WNL: Yes Integumentary: Yes: WNL Neurological: Yes: WNL, Alert, Oriented ...Motor Strength: WNL Psychiatric: Yes: WNL, Alert, Oriented Labs: CBC, BMP 09/21/19 06:43 09/21/19 06:43 ABG Results ABG pH 7.40 (7.35-7.45) 09/20/19 19:50 ABG pCO2 at Pt Temp 44.0 mmHg (35-45) 09/20/19 19:50 ABG pO2 at Pt Temp 96.4 mmHg (80-100) 09/20/19 19:50 ABG HCO3 26.7 mmol/L (22-27) 09/20/19 19:50 ABG O2 Sat (Measured) 97.0 % (95-98) 09/20/19 19:50 ABG O2 Content 17.1 % vol 09/20/19 19:50 ABG Base Excess 2.0 meq/l (-2-2) 09/20/19 19:50 Imaging - Results Chest X-ray: Report Reviewed, Image Reviewed Cat Scan: Report Reviewed, Image Reviewed Problem List - Problems (1) Chest pain Code(s): R07.9 - CHEST PAIN, UNSPECIFIED (2) Cough Code(s): R05 - COUGH (3) Pneumonia Code(s): J18.9 - PNEUMONIA, UNSPECIFIED ORGANISM (4) COPD (chronic obstructive pulmonary disease) Code(s): J44.9 - CHRONIC OBSTRUCTIVE PULMONARY DISEASE, UNSPECIFIED Qualifiers: COPD type: unspecified COPD Qualified Code(s): J44.9 - Chronic obstructive pulmonary disease, unspecified (5) COPD exacerbation Code(s): J44.1 - CHRONIC OBSTRUCTIVE PULMONARY DISEASE W (ACUTE) EXACERBATION (6) Chest discomfort Code(s): R07.89 - OTHER CHEST PAIN (7) Diabetes Code(s): E11.9 - TYPE 2 DIABETES MELLITUS WITHOUT COMPLICATIONS Qualifiers: Diabetes mellitus type: type 2 Diabetes mellitus termite inspector insulin use: without jail use Diabetes mellitus complication status: without complication Qualified Code(s): E11.9 - Type 2 diabetes mellitus without complications (8) Diabetic neuropathy Code(s): E11.40 - TYPE 2 DIABETES MELLITUS WITH DIABETIC NEUROPATHY, UNSP Qualifiers: Diabetes mellitus type: type 2 (9) Exogenous obesity Code(s): E66.9 - OBESITY, UNSPECIFIED (10) Hypercholesterolemia Code(s): E78.0 - PURE HYPERCHOLESTEROLEMIA * DO NOT USE * (11) Hypersensitivity pneumonitis Code(s): J67.9 - HYPERSENSITIVITY PNEUMONITIS DUE TO UNSPECIFIED ORGANIC DUST (12) Hypertension Code(s): I10 - ESSENTIAL (PRIMARY) HYPERTENSION Qualifiers: Hypertension type: essential hypertension Qualified Code(s): I10 - Essential (primary) hypertension (13) Interstitial lung disease Code(s): J84.9 - INTERSTITIAL PULMONARY DISEASE, UNSPECIFIED (14) Malaise and fatigue Code(s): R53.81 - OTHER MALAISE; R53.83 - OTHER FATIGUE (15) HARISH (obstructive sleep apnea) Code(s): G47.33 - OBSTRUCTIVE SLEEP APNEA (ADULT) (PEDIATRIC) (16) Pedal edema Code(s): R60.0 - LOCALIZED EDEMA (17) Poor compliance Code(s): Z91.19 - PATIENT'S NONCOMPLIANCE W OTH MEDICAL TREATMENT AND REGIMEN (18) Shortness of breath Code(s): R06.02 - SHORTNESS OF BREATH Assessment/Plan CT chest (previous nodule and ILD follow up) Supplemental O2 as needed Will need for OSAS re-evaluation Daily weights Lasix ABX coverage Medrol Singulair Symbicort BD TX standing and PRN No smoking VTE prophylaxis Will follow Thank you. Dr Morocho HARISH Screen - HARISH History Previously diagnosed with Sleep Apnea: Yes If Yes, currently using CPAP to treat your HARISH: No - SNORING Do you snore loudly (enough to be heard thru closed doors)?: Yes - TIRED Do you often feel tired, fatigued, or sleepy during daytime?: Yes - OBSERVED Has anyone observed you stop breathing during your sleep?: Yes - BLOOD PRESSURE Do you have or are being treated for high blood pressure?: Yes - BMI Answer Y if weight exceeds amount listed for your height: Yes .: HEIGHT & WEIGHT (lbs): 4'10" 167lbs; 4'11" 175 lbs; 5'0" 179lbs;. 5 '1" 185lbs; 5'2" 191lbs; 5'3" 197lbs;. 5'4" 204lbs; 5'5" 210lbs; 5'6" 216lbs;. 5'7" 223lbs; 5'8" 230lbs; 5'9" 237lbs;. 5'10" 243lbs ; 5'11" 250lbs; 6' 258lbs;. 6'1" 265lbs; 6'2" 272lbs; 6'3" 279lbs ;. 6'4" 287lbs; 6'5" 295lbs - AGE Is your age over 50 yrs old?: Yes - NECK CIRCUMFERENCE Neck Circumference 40cm: No - GENDER Male: No - SCORE Total Score: 6 Score Interpretation: High Risk of HARISH .: Interpretation: Score 0-2: Low Risk HARISH. Score 3-4: Intermediate Risk HARISH. Score 5-8: High Risk HARISH
[2019-09-21] MEDS ORDERED: ALBUTEROL SO4 0.083% IH SOL 2.5 MG/3 ML VIAL.NEB. NEB PRN (15:03)
[2019-09-21] MEDS: methylPREDNISolone NA SUCC 40 MG/1 ML VIAL IVPUSH SCH ×2 (15:08→22:03)
--- NOTE | 2019-09-21 16:11 | CON.ID ---
Consult - History of Present Illness History of Present Illness: 73 y.o. female with PMH of COPD on O2, severe OSAS, ILD, HTN, HLD, hypothyroidism, Breast CA s/p mastectomy presents with c/o SOB, dry cough with chest discomfort, weakness, and subjective fever/chills x 3 days. In the ER she was noted to be tachypneic, hypoxic (88% O2 sat), febrile up to 101.9, with mildly elevated wbc count and lactic acid. Influenza rapid test negative. Chest imaging revealed pulmonary congestion with possible patchy infiltrates. She was started on IV antibiotics, O2 supplementation with some improvement. Today states she is feeling a little bit better but still with cough and chest pain with inhalation. Pt has been afebrile since last night. Denies having any other symptoms. 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 No: Asthma, Cancer, Previously Intubated, Pulmonary Embolus ...: No Endocrine: Yes: Diabetes Mellitus, Hypothyroidism - Past Surgical History Past Surgical History: Yes: Mastectomy - Alcohol/Substance Use Hx Alcohol Use: No History of Substance Use: reports: None - Smoking History Smoking history: Never smoked Have you smoked in the past 12 months: No Aproximately how many cigarettes per day: 0 - Social History ADL: Independent History of Recent Travel: No Home Medications - Allergies Allergies/Adverse Reactions: Allergies Allergy/AdvReac Type Severity Reaction Status Date / Time No Known Allergies Allergy Verified 09/03/19 10:41 - Home Medications Home Medications: Ambulatory Orders Levothyroxine Sodium [Levo-T] 125 mcg PO DAILY 08/10/16 Memantine HCl [Namenda Xr] 14 mg PO DAILY 08/10/16 Albuterol 2.5/Ipratropium 0.5 [Duoneb -] 1 amp NEB Q4H PRN #0 amp 08/14/16 Gabapentin [Neurontin -] 300 mg PO BID capsule 08/14/16 Albuterol 0.083% Nebulizer Zehra [Ventolin 0.083% Nebulizer Soln -] 1 amp NEB Q4H PRN #0 amp 09/04/16 Aspirin Coated [Ecotrin -] 81 mg PO DAILY tablet.ec 09/04/16 Ramipril [Altace] 2.5 mg PO DAILY #30 capsule 09/04/16 Benzonatate 200 mg PO DAILY 06/18/17 Carvedilol 6.25 mg PO BID 06/18/17 Cholecalciferol (Vitamin D3) [Vitamin D3 -] 3,000 unit PO DAILY 06/18/17 Olopatadine HCl [Pazeo] 1 drop OU DAILY 06/18/17 Simvastatin 40 mg PO DAILY 06/18/17 Sitagliptin Phosphate [Januvia] 100 mg PO DAILY 06/18/17 Glipizide/Metformin HCl [Glipizide-Metformin 5-500 mg] 1 each PO BID 06/19/17 Budesonide/Formeterol Fumarate [SYMBICORT 160/4.5mcg -] 1 inh PO BID 10/01/18 Montelukast Sodium [Singulair] 10 mg PO DAILY 10/01/18 Acetaminophen [Tylenol .Regular Strength -] 650 mg PO Q6H PRN tablet 12/09/18 Guaifenesin [Robitussin -] 10 ml PO Q6H PRN cup 12/09/18 Methylprednisolone Na Succ [Solu-Medrol -] 40 mg IVPUSH Q8H vial 12/09/18 Pantoprazole Sodium [Protonix -] 40 mg PO DAILY 30 Days #30 tablet.ec 12/09/18 Prednisone 10 mg PO DAILY #30 tablet 12/09/18 Lidocaine 5% Patch [Lidoderm Patch -] 1 patch TP DAILY #30 patch 09/03/19 Review of Systems - Review of Systems Constitutional: reports: Weakness. denies: No Symptoms, Chills, Diaphoresis, Fever, Lethargy, Loss of Appetite, Malaise, Night Sweats, Unintentional Wgt. Loss, Other Eyes: reports: No Symptoms. denies: Blind Spots, Blurred Vision, Double Vision , Eye Pain, Floaters, Photophobia, Recent Change in Vision, Other HENT: reports: No Symptoms. denies: Difficult Swallowing, Ear Discharge, Ear Pain, Epistaxis, Gingival Bleeding, Hearing Loss, Mouth Swelling, Nasal Congestion, Ocular Prosthesis, Throat Pain, Toothache, Ringing in Ears, Other Neck: reports: No Symptoms. denies: Decreased ROM, Lumps, Pain on Movement, Stiffness, Swollen Glands, Tenderness, Other Cardiovascular: reports: Shortness of Breath Respiratory: reports: Cough, SOB Gastrointestinal: reports: No Symptoms. denies: Abdominal Pain, Bloating, Constipation, Diarrhea, Dysphagia, Indigestion, Melena, Nausea, Rectal Bleeding , Vomiting, Vomiting Blood, Other Genitourinary: reports: No Symptoms. denies: Burning, Discharge, Dysuria, Flank Pain, Frequency, Hematuria, Incontinence, Lesions, Menses, Pain, Testicular Mass, Testicular Pain, Testicular Swelling, Urgency, Vaginal Bleeding , Other Musculoskeletal: reports: No Symptoms. denies: Back Pain, Crepitus, Decreased ROM, Extremity Pain, Joint Pain, Joint Swelling, Muscle Pain, Muscle Cramps, Muscle Weakness, Other Integumentary: reports: No Symptoms. denies: Blister, Bruising, Change in Color , Eczema, Erythema, Incision, Lesions, Lump, Pallor, Pruritis, Rash, Wound, Other Neurological: reports: No Symptoms. denies: Change in LOC, Change in Speech, Confusion, Dizziness, Headache, Incoordination, Numbness, Parasthesia, Pre- Existing Deficit, Seizure, Syncope, Tremors, Unsteady Gait, Weakness, Other Endocrine: reports: No Symptoms. denies: Excessive Sweating, Flushing, Increased Hunger, Increased Thirst, Intolerance to Cold, Intolerance to Heat, Unexplained Weight Gain, Unexplained Weight Loss, Other Hematology/Lymphatic: reports: No Symptoms. denies: Easily Bruised, Excessive Bleeding, Swollen Glands, Other Physical Exam Vital Signs: Vital Signs Temperature 98.4 F 09/21/19 14:05 Pulse Rate 65 09/21/19 14:05 Respiratory Rate 18 09/21/19 14:05 Blood Pressure 123/64 09/21/19 14:05 O2 Sat by Pulse Oximetry (%) 96 09/21/19 09:00 Constitutional: Yes: Well Nourished, No Distress, Calm Eyes: Yes: Conjunctiva Clear, EOM Intact HENT: Yes: Atraumatic Neck: Yes: Supple, Trachea Midline Cardiovascular: Yes: Regular Rate and Rhythm Respiratory: Yes: Rhonchi, Wheezes Gastrointestinal: Yes: Normal Bowel Sounds, Soft Renal/: Yes: WNL Musculoskeletal: Yes: WNL Extremities: Yes: WNL Peripheral Pulses WNL: Yes Integumentary: Yes: WNL Neurological: Yes: Alert, Oriented Psychiatric: Yes: Alert Labs: CBC, BMP 09/21/19 06:43 09/21/19 06:43 Microbiology 09/21/19 01:00 Urine For Antigen Detection Legionella Antigen - Final 09/21/19 01:00 Urine For Antigen Detection Streptococcus pneumoniae Antigen (M - Final Influenza A/B rapid negative Imaging - Results X-ray: Report Reviewed Problem List - Problems (1) Fever Code(s): R50.9 - FEVER, UNSPECIFIED (2) Pneumonia Code(s): J18.9 - PNEUMONIA, UNSPECIFIED ORGANISM (3) COPD exacerbation Code(s): J44.1 - CHRONIC OBSTRUCTIVE PULMONARY DISEASE W (ACUTE) EXACERBATION (4) Diabetes Code(s): E11.9 - TYPE 2 DIABETES MELLITUS WITHOUT COMPLICATIONS Qualifiers: Diabetes mellitus type: type 2 Diabetes mellitus 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 insulin use: without fpc use Diabetes mellitus complication status: without complication Qualified Code(s): E11.9 - Type 2 diabetes mellitus without complications (5) Hypercholesterolemia Code(s): E78.0 - PURE HYPERCHOLESTEROLEMIA * DO NOT USE * (6) Chest pain Code(s): R07.9 - CHEST PAIN, UNSPECIFIED (7) Cough Code(s): R05 - COUGH (8) Hypothyroidism Code(s): E03.9 - HYPOTHYROIDISM, UNSPECIFIED Qualifiers: Hypothyroidism type: unspecified Qualified Code(s): E03.9 - Hypothyroidism , unspecified (9) Interstitial lung disease Code(s): J84.9 - INTERSTITIAL PULMONARY DISEASE, UNSPECIFIED (10) HARISH (obstructive sleep apnea) Code(s): G47.33 - OBSTRUCTIVE SLEEP APNEA (ADULT) (PEDIATRIC) Assessment/Plan 73 y.o. female with PMH of COPD on O2, severe OSAS, ILD, HTN, HLD, DM, hypothyroidism, Breast CA s/p mastectomy presents with c/o worsening SOB, dry cough with chest discomfort, weakness, and fever/chills x 3 days Acute COPD exacerbation PNA Fever SOB OSAS ILD Hypothyroidism Hx of Breast CA s/p mastectomy - Labs/imaging/notes reviewed - continue Ceftriaxone/Zithromax empirically for now - On steroids/BD/O2 - follow up Blood cultures - awaiting Chest CT - Urinary Ags negative - wbc normal, currently afebrile - Pulmonary/Cardiology following continue monitor closely Will follow Thank you
[2019-09-21] MEDS: ALBUTEROL SO4 2.5/IPRATROPIUM 0.5 INH SOL 3 ML VIAL.NEB. NEB SCH (20:12)
[2019-09-21] MEDS: MONTELUKAST NA 10 MG TABLET PO SCH (22:03)
[2019-09-21] MEDS: MAGNESIUM OXIDE 400 MG TABLET (FP) PO SCH (22:03)
[2019-09-21] MEDS: ATORVASTATIN CA 20 MG TABLET (FP) PO SCH (22:03)
[2019-09-22] MEDS: methylPREDNISolone NA SUCC 40 MG/1 ML VIAL IVPUSH SCH ×4 (03:46→21:50)
[2019-09-22] MEDS: guaiFENesin/D-METHORPHAN HB 10 ML UNIT-DOSE CUPS PO PRN ×2 (05:58→21:57)
[2019-09-22] MEDS: LEVOTHYROXINE NA 125 MCG TABLET (FP) PO SCH (06:00)
--- NOTE | 2019-09-22 08:25 | PN ---
Progress Note, Physician - Current Medication List Current Medications: Active Medications Acetaminophen (Tylenol -) 650 mg PO Q6H PRN PRN Reason: FEVER Last Admin: 09/21/19 17:46 Dose: 650 mg Albuterol Sulfate (Ventolin 0.083% Nebulizer Soln -) 1 amp NEB Q4H PRN PRN Reason: SHORT OF BREATH/WHEEZING Albuterol/Ipratropium (Duoneb -) 1 amp NEB RTID [facility] Last Admin: 09/21/19 20:12 Dose: Not Given Aspirin (Asa -) 81 mg PO DAILY [facility] Last Admin: 09/21/19 09:03 Dose: 81 mg Atorvastatin Calcium (Lipitor -) 20 mg PO HS [facility] Last Admin: 09/21/19 22:03 Dose: 20 mg Budesonide/Formoterol Fumarate (Symbicort 160/4.5mcg -) 2 puff IH BID [facility] Last Admin: 09/21/19 22:08 Dose: 2 puff Guaifenesin (Robitussin Dm -) 10 ml PO Q6H PRN PRN Reason: COUGH Last Admin: 09/22/19 05:58 Dose: 10 ml Heparin Sodium (Porcine) (Heparin -) 5,000 unit SQ BID [facility] Last Admin: 09/21/19 22:02 Dose: 5,000 unit Azithromycin (Zithromax 500mg Ivpb (Pre-Docked)) 500 mg in 250 mls @ 250 mls/ hr IVPB DAILY [facility] Last Admin: 09/21/19 09:03 Dose: 250 mls/hr Ceftriaxone Sodium 1 gm/ (Dextrose) 50 mls @ 100 mls/hr IVPB DAILY [facility]; Protocol Last Admin: 09/21/19 09:05 Dose: 100 mls/hr Levothyroxine Sodium (Synthroid -) 125 mcg PO DAILY@0700 [facility] Last Admin: 09/22/19 06:00 Dose: 125 mcg Magnesium Oxide (Mag-Ox -) 400 mg PO BID [facility] Last Admin: 09/21/19 22:03 Dose: 400 mg Methylprednisolone Sodium Succinate (Solu-Medrol -) 40 mg IVPUSH Q6H-IV [facility] Last Admin: 09/22/19 03:46 Dose: 40 mg Montelukast Sodium (Singulair -) 10 mg PO HS [facility] Last Admin: 09/21/19 22:03 Dose: 10 mg Pantoprazole Sodium (Protonix -) 20 mg PO DAILY [facility] Last Admin: 09/21/19 13:38 Dose: 20 mg - Objective Vital Signs: Vital Signs Temperature 98.5 F 09/22/19 05:32 Pulse Rate 70 09/22/19 05:32 Respiratory Rate 20 09/22/19 05:32 Blood Pressure 146/67 09/22/19 05:32 O2 Sat by Pulse Oximetry (%) 96 09/21/19 21:00 Labs: CBC, BMP 09/21/19 06:43 09/21/19 06:43 INR, PTT INR 1.03 (0.83-1.09) 09/20/19 19:20
--- NOTE | 2019-09-22 08:34 | PN ---
Progress Note, Physician History of Present Illness: feel better had a spike yesterday sputum production - Current Medication List Current Medications: Active Medications Acetaminophen (Tylenol -) 650 mg PO Q6H PRN PRN Reason: FEVER Last Admin: 09/21/19 17:46 Dose: 650 mg Albuterol Sulfate (Ventolin 0.083% Nebulizer Soln -) 1 amp NEB Q4H PRN PRN Reason: SHORT OF BREATH/WHEEZING Albuterol/Ipratropium (Duoneb -) 1 amp NEB RTID [facility] Last Admin: 09/21/19 20:12 Dose: Not Given Aspirin (Asa -) 81 mg PO DAILY [facility] Last Admin: 09/21/19 09:03 Dose: 81 mg Atorvastatin Calcium (Lipitor -) 20 mg PO HS [facility] Last Admin: 09/21/19 22:03 Dose: 20 mg Budesonide/Formoterol Fumarate (Symbicort 160/4.5mcg -) 2 puff IH BID [facility] Last Admin: 09/21/19 22:08 Dose: 2 puff Guaifenesin (Robitussin Dm -) 10 ml PO Q6H PRN PRN Reason: COUGH Last Admin: 09/22/19 05:58 Dose: 10 ml Heparin Sodium (Porcine) (Heparin -) 5,000 unit SQ BID [facility] Last Admin: 09/21/19 22:02 Dose: 5,000 unit Azithromycin (Zithromax 500mg Ivpb (Pre-Docked)) 500 mg in 250 mls @ 250 mls/ hr IVPB DAILY [facility] Last Admin: 09/21/19 09:03 Dose: 250 mls/hr Ceftriaxone Sodium 1 gm/ (Dextrose) 50 mls @ 100 mls/hr IVPB DAILY [facility]; Protocol Last Admin: 09/21/19 09:05 Dose: 100 mls/hr Levothyroxine Sodium (Synthroid -) 125 mcg PO DAILY@0700 [facility] Last Admin: 09/22/19 06:00 Dose: 125 mcg Magnesium Oxide (Mag-Ox -) 400 mg PO BID [facility] Last Admin: 09/21/19 22:03 Dose: 400 mg Methylprednisolone Sodium Succinate (Solu-Medrol -) 40 mg IVPUSH Q6H-IV [facility] Last Admin: 09/22/19 03:46 Dose: 40 mg Montelukast Sodium (Singulair -) 10 mg PO HS [facility] Last Admin: 09/21/19 22:03 Dose: 10 mg Pantoprazole Sodium (Protonix -) 20 mg PO DAILY [facility] Last Admin: 09/21/19 13:38 Dose: 20 mg - Objective Vital Signs: Vital Signs Temperature 98.5 F 09/22/19 05:32 Pulse Rate 70 09/22/19 05:32 Respiratory Rate 20 09/22/19 05:32 Blood Pressure 146/67 09/22/19 05:32 O2 Sat by Pulse Oximetry (%) 96 09/21/19 21:00 Constitutional: Yes: No Distress, Calm Cardiovascular: Yes: S1, S2 Respiratory: Yes: Regular, On Nasal O2, Rhonchi, Other Gastrointestinal: Yes: Normal Bowel Sounds, Soft Musculoskeletal: Yes: WNL Extremities: Yes: WNL Neurological: Yes: Alert, Oriented Psychiatric: Yes: Alert, Oriented Labs: CBC, BMP 09/21/19 06:43 09/21/19 06:43 INR, PTT INR 1.03 (0.83-1.09) 09/20/19 19:20 Assessment/Plan Problem List - Problems (1) Fever Code(s): R50.9 - FEVER, UNSPECIFIED (2) Pneumonia Code(s): J18.9 - PNEUMONIA, UNSPECIFIED ORGANISM (3) COPD exacerbation Code(s): J44.1 - CHRONIC OBSTRUCTIVE PULMONARY DISEASE W (ACUTE) EXACERBATION (4) Diabetes Code(s): E11.9 - TYPE 2 DIABETES MELLITUS WITHOUT COMPLICATIONS Qualifiers: Diabetes mellitus type: type 2 Diabetes mellitus ad terminal makeup operator insulin use: without alf use Diabetes mellitus complication status: without complication Qualified Code(s): E11.9 - Type 2 diabetes mellitus without complications (5) Hypercholesterolemia Code(s): E78.0 - PURE HYPERCHOLESTEROLEMIA * DO NOT USE * (6) Chest pain Code(s): R07.9 - CHEST PAIN, UNSPECIFIED (7) Cough Code(s): R05 - COUGH (8) Hypothyroidism Code(s): E03.9 - HYPOTHYROIDISM, UNSPECIFIED Qualifiers: Hypothyroidism type: unspecified Qualified Code(s): E03.9 - Hypothyroidism , unspecified (9) Interstitial lung disease Code(s): J84.9 - INTERSTITIAL PULMONARY DISEASE, UNSPECIFIED (10) HARISH (obstructive sleep apnea) Code(s): G47.33 - OBSTRUCTIVE SLEEP APNEA (ADULT) (PEDIATRIC) Assessment/Plan 73 y.o. female with PMH of COPD on O2, severe OSAS, ILD, HTN, HLD, DM, hypothyroidism, Breast CA s/p mastectomy presents with c/o worsening SOB, dry cough with chest discomfort, weakness, and fever/chills x 3 days Acute COPD exacerbation PNA Fever SOB OSAS ILD Hypothyroidism Hx of Breast CA s/p mastectomy - Labs/imaging/notes reviewed - continue Ceftriaxone/Zithromax - On steroids/BD/O2 - awaiting Chest CT results -
[2019-09-22] MEDS: ALBUTEROL SO4 2.5/IPRATROPIUM 0.5 INH SOL 3 ML VIAL.NEB. NEB SCH ×3 (08:44→20:36)
[2019-09-22] MEDS ORDERED: DEXTROSE 5%-WATER - 50 ML IVPB ONE (08:59)
[2019-09-22] MEDS ORDERED: cefTRIAXone SODIUM 1 GM VIAL ONE (08:59)
[2019-09-22] MEDS: HEPARIN NA (PORCINE) 5,000 UNITS/ML 1ML VIAL SQ SCH ×2 (09:53→21:53)
[2019-09-22] MEDS: CEFTRIAXONE 1 GM in DEXTROSE 5%-WATER - 50 ML IVPB SCH (09:54)
[2019-09-22] MEDS: PANTOPRAZOLE 20 MG TABLET PO SCH (09:54)
[2019-09-22] MEDS: MAGNESIUM OXIDE 400 MG TABLET (FP) PO SCH ×2 (09:54→21:50)
[2019-09-22] MEDS: ASPIRIN 81 MG CHEWABLE TABLETS PO SCH (09:54)
[2019-09-22] MEDS: BUDESONIDE/FORMETEROL FUMARATE 160/4.5 mcg INHALER IH SCH ×2 (09:54→21:51)
--- NOTE | 2019-09-22 11:12 | PN ---
Progress Note, Physician History of Present Illness: Pt seen/ examined all consults noted/ appreciated awake/ comfortable feels better denies cp - Current Medication List Current Medications: Active Medications Acetaminophen (Tylenol -) 650 mg PO Q6H PRN PRN Reason: FEVER Last Admin: 09/21/19 17:46 Dose: 650 mg Albuterol Sulfate (Ventolin 0.083% Nebulizer Soln -) 1 amp NEB Q4H PRN PRN Reason: SHORT OF BREATH/WHEEZING Albuterol/Ipratropium (Duoneb -) 1 amp NEB RTID [facility] Last Admin: 09/22/19 08:44 Dose: 1 amp Aspirin (Asa -) 81 mg PO DAILY [facility] Last Admin: 09/22/19 09:54 Dose: 81 mg Atorvastatin Calcium (Lipitor -) 20 mg PO HS [facility] Last Admin: 09/21/19 22:03 Dose: 20 mg Budesonide/Formoterol Fumarate (Symbicort 160/4.5mcg -) 2 puff IH BID [facility] Last Admin: 09/22/19 09:54 Dose: 2 puff Guaifenesin (Robitussin Dm -) 10 ml PO Q6H PRN PRN Reason: COUGH Last Admin: 09/22/19 05:58 Dose: 10 ml Heparin Sodium (Porcine) (Heparin -) 5,000 unit SQ BID [facility] Last Admin: 09/22/19 09:53 Dose: 5,000 unit Azithromycin (Zithromax 500mg Ivpb (Pre-Docked)) 500 mg in 250 mls @ 250 mls/ hr IVPB DAILY [facility] Last Admin: 09/21/19 09:03 Dose: 250 mls/hr Ceftriaxone Sodium 1 gm/ (Dextrose) 50 mls @ 100 mls/hr IVPB DAILY [facility]; Protocol Last Admin: 09/22/19 09:54 Dose: 100 mls/hr Levothyroxine Sodium (Synthroid -) 125 mcg PO DAILY@0700 [facility] Last Admin: 09/22/19 06:00 Dose: 125 mcg Magnesium Oxide (Mag-Ox -) 400 mg PO BID [facility] Last Admin: 09/22/19 09:54 Dose: 400 mg Methylprednisolone Sodium Succinate (Solu-Medrol -) 40 mg IVPUSH Q6H-IV [facility] Last Admin: 09/22/19 09:53 Dose: 40 mg Montelukast Sodium (Singulair -) 10 mg PO HS [facility] Last Admin: 09/21/19 22:03 Dose: 10 mg Pantoprazole Sodium (Protonix -) 20 mg PO DAILY [facility] Last Admin: 09/22/19 09:54 Dose: 20 mg - Objective Vital Signs: Vital Signs Temperature 98.5 F 09/22/19 05:32 Pulse Rate 70 09/22/19 05:32 Respiratory Rate 20 09/22/19 05:32 Blood Pressure 146/67 09/22/19 05:32 O2 Sat by Pulse Oximetry (%) 96 09/21/19 21:00 Constitutional: Yes: No Distress, Calm, Obese Eyes: Yes: Conjunctiva Clear Neck: Yes: Supple Respiratory: Yes: Rhonchi Gastrointestinal: Yes: Soft, Abdomen, Obese Edema: No Neurological: Yes: Alert Psychiatric: Yes: Alert Labs: CBC, BMP 09/21/19 06:43 09/21/19 06:43 INR, PTT INR 1.03 (0.83-1.09) 09/20/19 19:20 - ....Imaging Cat Scan: Report Reviewed Problem List - Problems (1) Fever Code(s): R50.9 - FEVER, UNSPECIFIED (2) Pneumonia Code(s): J18.9 - PNEUMONIA, UNSPECIFIED ORGANISM (3) COPD exacerbation Code(s): J44.1 - CHRONIC OBSTRUCTIVE PULMONARY DISEASE W (ACUTE) EXACERBATION (4) COPD exacerbation Code(s): J44.1 - CHRONIC OBSTRUCTIVE PULMONARY DISEASE W (ACUTE) EXACERBATION (5) Diabetes Code(s): E11.9 - TYPE 2 DIABETES MELLITUS WITHOUT COMPLICATIONS Qualifiers: Diabetes mellitus type: type 2 Diabetes mellitus intermediate frame tender insulin use: without intermediate frame tender use Diabetes mellitus complication status: without complication Qualified Code(s): E11.9 - Type 2 diabetes mellitus without complications (6) Interstitial lung disease Code(s): J84.9 - INTERSTITIAL PULMONARY DISEASE, UNSPECIFIED Assessment/Plan Better Steroids abx Nebulizer treatment oxygen Monitor bgm d/c tele will follow PT OOb - chair
--- NOTE | 2019-09-22 11:51 | PN ---
Progress Note, Physician History of Present Illness: Patient is a 73 year old female of descent with underlying history of breast CA s/p mastectomy s/p chemotherapy without radiation therapy, negative metastatic disease, COPD (2L NC @ night, symbicort), OSAS, ILD, HTN, hypercholesterolemia, type 2 diabetes mellitus, diabetic neuropathy, hypothyroidism and diastolic dysfunction, presented with shortness of breath, productive cough, and chest pain while coughing, since improving, low grade fever yesterday. - Current Medication List Current Medications: Active Medications Acetaminophen (Tylenol -) 650 mg PO Q6H PRN PRN Reason: FEVER Last Admin: 09/21/19 17:46 Dose: 650 mg Albuterol Sulfate (Ventolin 0.083% Nebulizer Soln -) 1 amp NEB Q4H PRN PRN Reason: SHORT OF BREATH/WHEEZING Albuterol/Ipratropium (Duoneb -) 1 amp NEB RTID [facility] Last Admin: 09/22/19 08:44 Dose: 1 amp Aspirin (Asa -) 81 mg PO DAILY [facility] Last Admin: 09/22/19 09:54 Dose: 81 mg Atorvastatin Calcium (Lipitor -) 20 mg PO HS [facility] Last Admin: 09/21/19 22:03 Dose: 20 mg Budesonide/Formoterol Fumarate (Symbicort 160/4.5mcg -) 2 puff IH BID [facility] Last Admin: 09/22/19 09:54 Dose: 2 puff Guaifenesin (Robitussin Dm -) 10 ml PO Q6H PRN PRN Reason: COUGH Last Admin: 09/22/19 05:58 Dose: 10 ml Heparin Sodium (Porcine) (Heparin -) 5,000 unit SQ BID [facility] Last Admin: 09/22/19 09:53 Dose: 5,000 unit Azithromycin (Zithromax 500mg Ivpb (Pre-Docked)) 500 mg in 250 mls @ 250 mls/ hr IVPB DAILY [facility] Last Admin: 09/21/19 09:03 Dose: 250 mls/hr Ceftriaxone Sodium 1 gm/ (Dextrose) 50 mls @ 100 mls/hr IVPB DAILY [facility]; Protocol Last Admin: 09/22/19 09:54 Dose: 100 mls/hr Levothyroxine Sodium (Synthroid -) 125 mcg PO DAILY@0700 [facility] Last Admin: 09/22/19 06:00 Dose: 125 mcg Magnesium Oxide (Mag-Ox -) 400 mg PO BID [facility] Last Admin: 09/22/19 09:54 Dose: 400 mg Methylprednisolone Sodium Succinate (Solu-Medrol -) 40 mg IVPUSH Q6H-IV [facility] Last Admin: 09/22/19 09:53 Dose: 40 mg Montelukast Sodium (Singulair -) 10 mg PO HS [facility] Last Admin: 09/21/19 22:03 Dose: 10 mg Pantoprazole Sodium (Protonix -) 20 mg PO DAILY [facility] Last Admin: 09/22/19 09:54 Dose: 20 mg - Objective Vital Signs: Vital Signs Temperature 98.5 F 09/22/19 05:32 Pulse Rate 70 09/22/19 05:32 Respiratory Rate 20 09/22/19 05:32 Blood Pressure 146/67 09/22/19 05:32 O2 Sat by Pulse Oximetry (%) 96 09/21/19 21:00 Constitutional: Yes: No Distress, Calm Neck: Yes: Supple Cardiovascular: Yes: Regular Rate and Rhythm Respiratory: Yes: Regular, Diminished Gastrointestinal: Yes: Normal Bowel Sounds, Soft Edema: No Labs: CBC, BMP 09/21/19 06:43 09/21/19 06:43 INR, PTT INR 1.03 (0.83-1.09) 09/20/19 19:20 Problem List - Problems (1) Cough Code(s): R05 - COUGH (2) COPD exacerbation Code(s): J44.1 - CHRONIC OBSTRUCTIVE PULMONARY DISEASE W (ACUTE) EXACERBATION (3) Chest discomfort Code(s): R07.89 - OTHER CHEST PAIN (4) Diabetes Code(s): E11.9 - TYPE 2 DIABETES MELLITUS WITHOUT COMPLICATIONS Qualifiers: Diabetes mellitus type: type 2 Diabetes mellitus cnc 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 insulin use: without skilled nursing use Diabetes mellitus complication status: without complication Qualified Code(s): E11.9 - Type 2 diabetes mellitus without complications (5) Hyperlipidemia associated with type 2 diabetes mellitus Code(s): E11.69 - TYPE 2 DIABETES MELLITUS WITH OTHER SPECIFIED COMPLICATION; E78.5 - HYPERLIPIDEMIA, UNSPECIFIED (6) Hypertension Code(s): I10 - ESSENTIAL (PRIMARY) HYPERTENSION Qualifiers: Hypertension type: essential hypertension Qualified Code(s): I10 - Essential (primary) hypertension (7) Hypothyroidism Code(s): E03.9 - HYPOTHYROIDISM, UNSPECIFIED Qualifiers: Hypothyroidism type: unspecified Qualified Code(s): E03.9 - Hypothyroidism , unspecified (8) Interstitial lung disease Code(s): J84.9 - INTERSTITIAL PULMONARY DISEASE, UNSPECIFIED (9) HARISH (obstructive sleep apnea) Code(s): G47.33 - OBSTRUCTIVE SLEEP APNEA (ADULT) (PEDIATRIC) (10) Reactive airway disease Code(s): J45.909 - UNSPECIFIED ASTHMA, UNCOMPLICATED Qualifiers: Asthma severity: unspecified severity Assessment/Plan 09/21/[address]: Extensive chronic ILD 09/12/2019 Brain MRI: Negative for acute stroke 1. Acute COPD exacerbation, history of ILD, atypical post-tussive chest pain 2. CAD with history of sub-endocardial ischemia, angina pectoris 3. Diastolic LV dysfunction with class 0 NYHA classification LV failure 4. HTN 5. DM 6. Hypercholesterolemia 7. Hypothyroidism 8. Peripheral diabetic neuropathy 9. OSAS PLAN: 1. Empiric antibiotics, bronchodilators, IV steroids with GI protection, O2 as needed, singulair 2. Ruled out for NM, BNP low, f/u echo results for RVSP 3. Continue Coreg 6.25 bid and Ramipril 2.5 qd 4. Continue Lipitor 20 qd and ASA 81 qd
--- NOTE | 2019-09-22 13:05 | ECHO ---
Name: GLOVERLYDIA Fontenot Exam:Adult Echocardiogram Study Date: 09/22/2019 12:09 PM Age: 73 yrs Reason For Study: Chest pain MMode/2D Measurements & Calculations IVSd: 0.81 cm Ao root diam: 2.7 cm LVIDd: 4.4 cm LA dimension: 3.8 cm LVIDs: 3.0 cm LVPWd: 1.2 cm LVPWs: 1.4 cm EDV(Teich): 88.1 ml ESV(Teich): 33.6 ml LVOT diam: 1.9 cm LAV (MOD-bp): 56.0 ml RV S Alvin: 11.5 cm/sec Doppler Measurements & Calculations MV E max alvin: 85.4 cm/sec Ao V2 max: 244.4 cm/sec MV A max alvin: 113.5 cm/sec Ao max P.0 mmHg MV E/A: 0.75 Ao V2 mean: 165.5 cm/sec MV dec time: 0.23 sec Ao mean P.0 mmHg Ao V2 VTI: 57.4 cm SALVADOR(I,D): 2.0 cm2 SALVADOR(V,D): 1.8 cm2 LV V1 max P.7 mmHg SV(LVOT): 113.8 ml LV V1 mean P.7 mmHg LV V1 max: 155.5 cm/sec LV V1 mean: 113.7 cm/sec LV V1 VTI: 39.2 cm TR max alvin: 258.4 cm/sec PA V2 max: 105.1 cm/sec TR max P.7 mmHg PA max P.4 mmHg Med Peak E' Alvin: 4.4 cm/sec Med E/e': 19.6 Lat Peak E' Alvin: 8.1 cm/sec Lat E/e': 10.6 Procedure Study Quality: Fair. Left Ventricle The left ventricle is normal in size. There is borderline concentric left ventricular hypertrophy. Ej ection Fraction = 60-65%. The transmitral spectral Doppler flow pattern is suggestive of impaired LV relaxat ion. Right Ventricle The right ventricle is normal in size and function. Atria The left atrium is mildly dilated. Right atrial size is normal. Lipomatous hypertrophy of the interat rial septum is noted. Mitral Valve Calcified mitral apparatus. There is trace to mild mitral regurgitation. Tricuspid Valve The tricuspid valve is not well visualized, but is grossly normal. There is mild tricuspid regurgitat ion. Right ventricular systolic pressure is normal. Aortic Valve Mildly calcified. Mild valvular aortic stenosis. No aortic regurgitation is present. Pulmonic Valve The pulmonic valve is not well seen, but is grossly normal. Great Vessels The aortic root is normal size. Pericardium/Pleura There is no pericardial effusion. Interpretation Summary LV: Normal size, borderline LVH,normal systolic function, EF 60-65%, impaired relaxation RV: Normal LA: Mildly dilated Mildly calcified aortic valve, mild aortic stenosis Trace to mild mitral and mild tricuspid regurgitation Normal pulmonary systolic pressure. Nakul Carpenter 09/22/2019 01:05 PM
--- NOTE | 2019-09-22 13:27 | PN ---
Progress Note (short form) - Note Progress Note: Breathing feels a little better today. Less cough and CP. No acute events overnight. CT: Chronic lung disease: mildly enlarged mediastinal adenopathy: not significantly changed since CT in 2017 Intake & Output 09/19/19 09/20/19 09/21/19 09/22/19 23:59 23:59 23:59 23:59 Intake Total 561 Balance 561 Weight 176 lb 163 lb Last Vital Signs Temp Pulse Resp BP Pulse Ox 98.5 F 70 20 146/67 96 09/22/19 05:32 09/22/19 05:32 09/22/19 05:32 09/22/19 05:32 09/21/19 21:00 Active Medications Acetaminophen (Tylenol -) 650 mg PO Q6H PRN PRN Reason: FEVER Last Admin: 09/21/19 17:46 Dose: 650 mg Albuterol Sulfate (Ventolin 0.083% Nebulizer Soln -) 1 amp NEB Q4H PRN PRN Reason: SHORT OF BREATH/WHEEZING Albuterol/Ipratropium (Duoneb -) 1 amp NEB RTID [facility] Last Admin: 09/22/19 08:44 Dose: 1 amp Aspirin (Asa -) 81 mg PO DAILY [facility] Last Admin: 09/22/19 09:54 Dose: 81 mg Atorvastatin Calcium (Lipitor -) 20 mg PO HS [facility] Last Admin: 09/21/19 22:03 Dose: 20 mg Budesonide/Formoterol Fumarate (Symbicort 160/4.5mcg -) 2 puff IH BID [facility] Last Admin: 09/22/19 09:54 Dose: 2 puff Guaifenesin (Robitussin Dm -) 10 ml PO Q6H PRN PRN Reason: COUGH Last Admin: 09/22/19 05:58 Dose: 10 ml Heparin Sodium (Porcine) (Heparin -) 5,000 unit SQ BID [facility] Last Admin: 09/22/19 09:53 Dose: 5,000 unit Azithromycin (Zithromax 500mg Ivpb (Pre-Docked)) 500 mg in 250 mls @ 250 mls/ hr IVPB DAILY [facility] Last Admin: 09/21/19 09:03 Dose: 250 mls/hr Ceftriaxone Sodium 1 gm/ (Dextrose) 50 mls @ 100 mls/hr IVPB DAILY [facility]; Protocol Last Admin: 09/22/19 09:54 Dose: 100 mls/hr Levothyroxine Sodium (Synthroid -) 125 mcg PO DAILY@0700 [facility] Last Admin: 09/22/19 06:00 Dose: 125 mcg Magnesium Oxide (Mag-Ox -) 400 mg PO BID [facility] Last Admin: 09/22/19 09:54 Dose: 400 mg Methylprednisolone Sodium Succinate (Solu-Medrol -) 40 mg IVPUSH Q6H-IV [facility] Last Admin: 09/22/19 09:53 Dose: 40 mg Montelukast Sodium (Singulair -) 10 mg PO HS [facility] Last Admin: 09/21/19 22:03 Dose: 10 mg Pantoprazole Sodium (Protonix -) 20 mg PO DAILY [facility] Last Admin: 09/22/19 09:54 Dose: 20 mg Constitutional: Yes: No Distress, Obese Eyes: Yes: Conjunctiva Clear, EOM Intact HENT: Yes: Atraumatic, Normocephalic Neck: Yes: Supple, Trachea Midline Cardiovascular: Yes: Regular Rate and Rhythm Respiratory: Yes: Cough, Diminished, Rales, Rhonchi, SOB, SOB on Exertion, Tachypnea, Wheezes. No: Accessory Muscle Use, Stridor ...Inspection: Yes: WNL ...Clubbing: No Gastrointestinal: Yes: Normal Bowel Sounds, Soft, Abdomen, Obese Renal/: Yes: WNL Musculoskeletal: Yes: WNL Extremities: Yes: WNL Edema: Yes Peripheral Pulses WNL: Yes Integumentary: Yes: WNL Neurological: Yes: WNL, Alert, Oriented ...Motor Strength: WNL Psychiatric: Yes: WNL, Alert, Oriented Labs: Laboratory Results - last 24 hr 09/21/19 09/22/19 09/22/19 16:58 05:39 12:46 POC Glucometer 78 177 259 Imaging - Results Chest X-ray: Report Reviewed, Image Reviewed Cat Scan: Report Reviewed, Image Reviewed Problem List - Problems (1) Chest pain Code(s): R07.9 - CHEST PAIN, UNSPECIFIED (2) Cough Code(s): R05 - COUGH (3) Pneumonia Code(s): J18.9 - PNEUMONIA, UNSPECIFIED ORGANISM (4) COPD (chronic obstructive pulmonary disease) Code(s): J44.9 - CHRONIC OBSTRUCTIVE PULMONARY DISEASE, UNSPECIFIED Qualifiers: COPD type: unspecified COPD Qualified Code(s): J44.9 - Chronic obstructive pulmonary disease, unspecified (5) COPD exacerbation Code(s): J44.1 - CHRONIC OBSTRUCTIVE PULMONARY DISEASE W (ACUTE) EXACERBATION (6) Chest discomfort Code(s): R07.89 - OTHER CHEST PAIN (7) Diabetes Code(s): E11.9 - TYPE 2 DIABETES MELLITUS WITHOUT COMPLICATIONS Qualifiers: Diabetes mellitus type: type 2 Diabetes mellitus senior care insulin use: without termite technician use Diabetes mellitus complication status: without complication Qualified Code(s): E11.9 - Type 2 diabetes mellitus without complications (8) Diabetic neuropathy Code(s): E11.40 - TYPE 2 DIABETES MELLITUS WITH DIABETIC NEUROPATHY, UNSP Qualifiers: Diabetes mellitus type: type 2 (9) Exogenous obesity Code(s): E66.9 - OBESITY, UNSPECIFIED (10) Hypercholesterolemia Code(s): E78.0 - PURE HYPERCHOLESTEROLEMIA * DO NOT USE * (11) Hypersensitivity pneumonitis Code(s): J67.9 - HYPERSENSITIVITY PNEUMONITIS DUE TO UNSPECIFIED ORGANIC DUST (12) Hypertension Code(s): I10 - ESSENTIAL (PRIMARY) HYPERTENSION Qualifiers: Hypertension type: essential hypertension Qualified Code(s): I10 - Essential (primary) hypertension (13) Interstitial lung disease Code(s): J84.9 - INTERSTITIAL PULMONARY DISEASE, UNSPECIFIED (14) Malaise and fatigue Code(s): R53.81 - OTHER MALAISE; R53.83 - OTHER FATIGUE (15) HARISH (obstructive sleep apnea) Code(s): G47.33 - OBSTRUCTIVE SLEEP APNEA (ADULT) (PEDIATRIC) (16) Pedal edema Code(s): R60.0 - LOCALIZED EDEMA (17) Poor compliance Code(s): Z91.19 - PATIENT'S NONCOMPLIANCE W OTH MEDICAL TREATMENT AND REGIMEN (18) Shortness of breath Code(s): R06.02 - SHORTNESS OF BREATH Assessment/Plan Supplemental O2 as needed Will need for OSAS re-evaluation Daily weights Lasix ABX coverage Medrol Singulair Symbicort BD TX standing and PRN No smoking VTE prophylaxis Dr Morocho Problem List - Problems (1) Chest pain Code(s): R07.9 - CHEST PAIN, UNSPECIFIED (2) Cough Code(s): R05 - COUGH (3) Pneumonia Code(s): J18.9 - PNEUMONIA, UNSPECIFIED ORGANISM (4) COPD (chronic obstructive pulmonary disease) Code(s): J44.9 - CHRONIC OBSTRUCTIVE PULMONARY DISEASE, UNSPECIFIED Qualifiers: COPD type: unspecified COPD Qualified Code(s): J44.9 - Chronic obstructive pulmonary disease, unspecified (5) COPD exacerbation Code(s): J44.1 - CHRONIC OBSTRUCTIVE PULMONARY DISEASE W (ACUTE) EXACERBATION (6) Chest discomfort Code(s): R07.89 - OTHER CHEST PAIN (7) Diabetes Code(s): E11.9 - TYPE 2 DIABETES MELLITUS WITHOUT COMPLICATIONS Qualifiers: Diabetes mellitus type: type 2 Diabetes mellitus senior care insulin use: without termite technician use Diabetes mellitus complication status: without complication Qualified Code(s): E11.9 - Type 2 diabetes mellitus without complications (8) Diabetic neuropathy Code(s): E11.40 - TYPE 2 DIABETES MELLITUS WITH DIABETIC NEUROPATHY, UNSP Qualifiers: Diabetes mellitus type: type 2 (9) Exogenous obesity Code(s): E66.9 - OBESITY, UNSPECIFIED (10) Hypercholesterolemia Code(s): E78.0 - PURE HYPERCHOLESTEROLEMIA * DO NOT USE * (11) Hypersensitivity pneumonitis Code(s): J67.9 - HYPERSENSITIVITY PNEUMONITIS DUE TO UNSPECIFIED ORGANIC DUST (12) Hypertension Code(s): I10 - ESSENTIAL (PRIMARY) HYPERTENSION Qualifiers: Hypertension type: essential hypertension Qualified Code(s): I10 - Essential (primary) hypertension (13) Interstitial lung disease Code(s): J84.9 - INTERSTITIAL PULMONARY DISEASE, UNSPECIFIED (14) Malaise and fatigue Code(s): R53.81 - OTHER MALAISE; R53.83 - OTHER FATIGUE (15) HARISH (obstructive sleep apnea) Code(s): G47.33 - OBSTRUCTIVE SLEEP APNEA (ADULT) (PEDIATRIC) (16) Pedal edema Code(s): R60.0 - LOCALIZED EDEMA (17) Poor compliance Code(s): Z91.19 - PATIENT'S NONCOMPLIANCE W OTH MEDICAL TREATMENT AND REGIMEN (18) Shortness of breath Code(s): R06.02 - SHORTNESS OF BREATH
[2019-09-22] MEDS: AZITHROMYCIN IVPB 500 MG/250 ML BAG IVPB SCH (14:00)
[2019-09-22] MEDS ORDERED: INSULIN (NOVOLOG) ASPART 100 UNITS/ML 10ML VIAL SQ ONE (17:39)
[2019-09-22] MEDS: ATORVASTATIN CA 20 MG TABLET (FP) PO SCH (21:50)
[2019-09-22] MEDS: MONTELUKAST NA 10 MG TABLET PO SCH (21:51)
[2019-09-23] MEDS: methylPREDNISolone NA SUCC 40 MG/1 ML VIAL IVPUSH SCH ×5 (03:40→23:19)
[2019-09-23] MEDS: ACETAMINOPHEN 325 MG TABLET (FP) PO PRN (03:42)
[2019-09-23] MEDS ORDERED: PT OWN MED DRAWER 7, Y5N ONE (06:07)
[2019-09-23] MEDS: LEVOTHYROXINE NA 125 MCG TABLET (FP) PO SCH (06:22)
[2019-09-23] MEDS: ALBUTEROL SO4 2.5/IPRATROPIUM 0.5 INH SOL 3 ML VIAL.NEB. NEB SCH ×3 (07:39→20:25)
[2019-09-23] MEDS ORDERED: cefTRIAXone SODIUM 1 GM VIAL ONE (09:03)
[2019-09-23] MEDS ORDERED: DEXTROSE 5%-WATER - 50 ML IVPB ONE (09:03)
[2019-09-23] MEDS: ASPIRIN 81 MG CHEWABLE TABLETS PO SCH (09:48)
[2019-09-23] MEDS: HEPARIN NA (PORCINE) 5,000 UNITS/ML 1ML VIAL SQ SCH ×2 (09:48→21:58)
[2019-09-23] MEDS: PANTOPRAZOLE 20 MG TABLET PO SCH (09:50)
[2019-09-23] MEDS: guaiFENesin/D-METHORPHAN HB 10 ML UNIT-DOSE CUPS PO PRN (09:50)
[2019-09-23] MEDS: AZITHROMYCIN IVPB 500 MG/250 ML BAG IVPB SCH (09:51)
[2019-09-23] MEDS: CEFTRIAXONE 1 GM in DEXTROSE 5%-WATER - 50 ML IVPB SCH (09:51)
[2019-09-23] MEDS: BUDESONIDE/FORMETEROL FUMARATE 160/4.5 mcg INHALER IH SCH ×2 (09:51→22:00)
[2019-09-23] MEDS: MAGNESIUM OXIDE 400 MG TABLET (FP) PO SCH ×2 (10:07→21:59)
--- NOTE | 2019-09-23 10:32 | PN ---
Progress Note, Physician History of Present Illness: PULMONARY ALERT,COMFORTABLE,OOB-CHAIR,-SOB - Current Medication List Current Medications: Active Medications Acetaminophen (Tylenol -) 650 mg PO Q6H PRN PRN Reason: FEVER Last Admin: 09/23/19 03:42 Dose: 650 mg Albuterol Sulfate (Ventolin 0.083% Nebulizer Soln -) 1 amp NEB Q4H PRN PRN Reason: SHORT OF BREATH/WHEEZING Albuterol/Ipratropium (Duoneb -) 1 amp NEB RTID [facility] Last Admin: 09/22/19 20:36 Dose: 1 amp Aspirin (Asa -) 81 mg PO DAILY [facility] Last Admin: 09/23/19 09:48 Dose: 81 mg Atorvastatin Calcium (Lipitor -) 20 mg PO HS [facility] Last Admin: 09/22/19 21:50 Dose: 20 mg Budesonide/Formoterol Fumarate (Symbicort 160/4.5mcg -) 2 puff IH BID [facility] Last Admin: 09/23/19 09:51 Dose: 2 puff Guaifenesin (Robitussin Dm -) 10 ml PO Q6H PRN PRN Reason: COUGH Last Admin: 09/23/19 09:50 Dose: 10 ml Heparin Sodium (Porcine) (Heparin -) 5,000 unit SQ BID [facility] Last Admin: 09/23/19 09:48 Dose: 5,000 unit Azithromycin (Zithromax 500mg Ivpb (Pre-Docked)) 500 mg in 250 mls @ 250 mls/ hr IVPB DAILY [facility] Last Admin: 09/23/19 09:51 Dose: 250 mls/hr Ceftriaxone Sodium 1 gm/ (Dextrose) 50 mls @ 100 mls/hr IVPB DAILY [facility]; Protocol Last Admin: 09/23/19 09:51 Dose: 100 mls/hr Levothyroxine Sodium (Synthroid -) 125 mcg PO DAILY@0700 [facility] Last Admin: 09/23/19 06:22 Dose: 125 mcg Magnesium Oxide (Mag-Ox -) 400 mg PO BID [facility] Last Admin: 09/23/19 10:07 Dose: 400 mg Methylprednisolone Sodium Succinate (Solu-Medrol -) 40 mg IVPUSH Q6H-IV ANU Last Admin: 09/23/19 09:51 Dose: 40 mg Montelukast Sodium (Singulair -) 10 mg PO HS [facility] Last Admin: 09/22/19 21:51 Dose: 10 mg Pantoprazole Sodium (Protonix -) 20 mg PO DAILY [facility] Last Admin: 09/23/19 09:50 Dose: 20 mg - Objective Vital Signs: Vital Signs Temperature 98.1 F 09/23/19 06:00 Pulse Rate 60 09/23/19 06:00 Respiratory Rate 20 09/23/19 06:00 Blood Pressure 137/65 09/23/19 06:00 O2 Sat by Pulse Oximetry (%) 95 09/22/19 21:00 Constitutional: Yes: Well Nourished, Calm Eyes: Yes: WNL HENT: Yes: WNL Neck: Yes: WNL Cardiovascular: Yes: Regular Rate and Rhythm, S1, S2 Respiratory: Yes: Wheezes (FEW WHHEZES) Gastrointestinal: Yes: Normal Bowel Sounds, Soft Extremities: Yes: WNL Edema: No Labs: CBC, BMP 09/21/19 06:43 Assessment/Plan Problem List - Problems (1) Chest pain Code(s): R07.9 - CHEST PAIN, UNSPECIFIED (2) Cough Code(s): R05 - COUGH (3) Pneumonia Code(s): J18.9 - PNEUMONIA, UNSPECIFIED ORGANISM (4) COPD (chronic obstructive pulmonary disease) Code(s): J44.9 - CHRONIC OBSTRUCTIVE PULMONARY DISEASE, UNSPECIFIED Qualifiers: COPD type: unspecified COPD Qualified Code(s): J44.9 - Chronic obstructive pulmonary disease, unspecified (5) COPD exacerbation Code(s): J44.1 - CHRONIC OBSTRUCTIVE PULMONARY DISEASE W (ACUTE) EXACERBATION (6) Chest discomfort Code(s): R07.89 - OTHER CHEST PAIN (7) Diabetes Code(s): E11.9 - TYPE 2 DIABETES MELLITUS WITHOUT COMPLICATIONS Qualifiers: Diabetes mellitus type: type 2 Diabetes mellitus salon manager insulin use: without salon manager use Diabetes mellitus complication status: without complication Qualified Code(s): E11.9 - Type 2 diabetes mellitus without complications (8) Diabetic neuropathy Code(s): E11.40 - TYPE 2 DIABETES MELLITUS WITH DIABETIC NEUROPATHY, UNSP Qualifiers: Diabetes mellitus type: type 2 (9) Exogenous obesity Code(s): E66.9 - OBESITY, UNSPECIFIED (10) Hypercholesterolemia Code(s): E78.0 - PURE HYPERCHOLESTEROLEMIA * DO NOT USE * (11) Hypersensitivity pneumonitis Code(s): J67.9 - HYPERSENSITIVITY PNEUMONITIS DUE TO UNSPECIFIED ORGANIC DUST (12) Hypertension Code(s): I10 - ESSENTIAL (PRIMARY) HYPERTENSION Qualifiers: Hypertension type: essential hypertension Qualified Code(s): I10 - Essential (primary) hypertension (13) Interstitial lung disease Code(s): J84.9 - INTERSTITIAL PULMONARY DISEASE, UNSPECIFIED (14) Malaise and fatigue Code(s): R53.81 - OTHER MALAISE; R53.83 - OTHER FATIGUE (15) HARISH (obstructive sleep apnea) Code(s): G47.33 - OBSTRUCTIVE SLEEP APNEA (ADULT) (PEDIATRIC) (16) Pedal edema Code(s): R60.0 - LOCALIZED EDEMA (17) Poor compliance Code(s): Z91.19 - PATIENT'S NONCOMPLIANCE W OTH MEDICAL TREATMENT AND REGIMEN (18) Shortness of breath Code(s): R06.02 - SHORTNESS OF BREATH Assessment/Plan Supplemental O2 as needed Will need for OSAS re-evaluation Daily weights Lasix ABX Medrol taper Singulair Symbicort BD TX standing and PRN No smoking VTE prophylaxis Dr VYAS Problem List - Problems (1) Chest pain Code(s): R07.9 - CHEST PAIN, UNSPECIFIED (2) Cough Code(s): R05 - COUGH (3) Pneumonia Code(s): J18.9 - PNEUMONIA, UNSPECIFIED ORGANISM (4) COPD (chronic obstructive pulmonary disease) Code(s): J44.9 - CHRONIC OBSTRUCTIVE PULMONARY DISEASE, UNSPECIFIED Qualifiers: COPD type: unspecified COPD Qualified Code(s): J44.9 - Chronic obstructive pulmonary disease, unspecified (5) COPD exacerbation Code(s): J44.1 - CHRONIC OBSTRUCTIVE PULMONARY DISEASE W (ACUTE) EXACERBATION (6) Chest discomfort Code(s): R07.89 - OTHER CHEST PAIN (7) Diabetes Code(s): E11.9 - TYPE 2 DIABETES MELLITUS WITHOUT COMPLICATIONS Qualifiers: Diabetes mellitus type: type 2 Diabetes mellitus prison insulin use: without salon manager use Diabetes mellitus complication status: without complication Qualified Code(s): E11.9 - Type 2 diabetes mellitus without complications (8) Diabetic neuropathy Code(s): E11.40 - TYPE 2 DIABETES MELLITUS WITH DIABETIC NEUROPATHY, UNSP Qualifiers: Diabetes mellitus type: type 2 (9) Exogenous obesity Code(s): E66.9 - OBESITY, UNSPECIFIED (10) Hypercholesterolemia Code(s): E78.0 - PURE HYPERCHOLESTEROLEMIA * DO NOT USE * (11) Hypersensitivity pneumonitis Code(s): J67.9 - HYPERSENSITIVITY PNEUMONITIS DUE TO UNSPECIFIED ORGANIC DUST (12) Hypertension Code(s): I10 - ESSENTIAL (PRIMARY) HYPERTENSION Qualifiers: Hypertension type: essential hypertension Qualified Code(s): I10 - Essential (primary) hypertension (13) Interstitial lung disease Code(s): J84.9 - INTERSTITIAL PULMONARY DISEASE, UNSPECIFIED (14) Malaise and fatigue Code(s): R53.81 - OTHER MALAISE; R53.83 - OTHER FATIGUE (15) HARISH (obstructive sleep apnea) Code(s): G47.33 - OBSTRUCTIVE SLEEP APNEA (ADULT) (PEDIATRIC) (16) Pedal edema Code(s): R60.0 - LOCALIZED EDEMA (17) Poor compliance Code(s): Z91.19 - PATIENT'S NONCOMPLIANCE W OTH MEDICAL TREATMENT AND REGIMEN (18) Shortness of breath Code(s): R06.02 - SHORTNESS OF BREATH
--- NOTE | 2019-09-23 11:25 | PN ---
Progress Note, Physician Chief Complaint: Not in distress Feels better History of Present Illness: Patient was seen and examined. Awake and alert. Chart was reviewed Denies chest pain or palpitations Less SOB and cough - Current Medication List Current Medications: Active Medications Acetaminophen (Tylenol -) 650 mg PO Q6H PRN PRN Reason: FEVER Last Admin: 09/23/19 03:42 Dose: 650 mg Albuterol Sulfate (Ventolin 0.083% Nebulizer Soln -) 1 amp NEB Q4H PRN PRN Reason: SHORT OF BREATH/WHEEZING Albuterol/Ipratropium (Duoneb -) 1 amp NEB RTID [facility] Last Admin: 09/22/19 20:36 Dose: 1 amp Aspirin (Asa -) 81 mg PO DAILY [facility] Last Admin: 09/23/19 09:48 Dose: 81 mg Atorvastatin Calcium (Lipitor -) 20 mg PO HS [facility] Last Admin: 09/22/19 21:50 Dose: 20 mg Budesonide/Formoterol Fumarate (Symbicort 160/4.5mcg -) 2 puff IH BID [facility] Last Admin: 09/23/19 09:51 Dose: 2 puff Guaifenesin (Robitussin Dm -) 10 ml PO Q6H PRN PRN Reason: COUGH Last Admin: 09/23/19 09:50 Dose: 10 ml Heparin Sodium (Porcine) (Heparin -) 5,000 unit SQ BID [facility] Last Admin: 09/23/19 09:48 Dose: 5,000 unit Azithromycin (Zithromax 500mg Ivpb (Pre-Docked)) 500 mg in 250 mls @ 250 mls/ hr IVPB DAILY [facility] Last Admin: 09/23/19 09:51 Dose: 250 mls/hr Ceftriaxone Sodium 1 gm/ (Dextrose) 50 mls @ 100 mls/hr IVPB DAILY [facility]; Protocol Last Admin: 09/23/19 09:51 Dose: 100 mls/hr Levothyroxine Sodium (Synthroid -) 125 mcg PO DAILY@0700 [facility] Last Admin: 09/23/19 06:22 Dose: 125 mcg Magnesium Oxide (Mag-Ox -) 400 mg PO BID [facility] Last Admin: 09/23/19 10:07 Dose: 400 mg Methylprednisolone Sodium Succinate (Solu-Medrol -) 40 mg IVPUSH Q6H-IV ANU Last Admin: 09/23/19 09:51 Dose: 40 mg Montelukast Sodium (Singulair -) 10 mg PO HS [facility] Last Admin: 09/22/19 21:51 Dose: 10 mg Pantoprazole Sodium (Protonix -) 20 mg PO DAILY [facility] Last Admin: 09/23/19 09:50 Dose: 20 mg - Objective Vital Signs: Vital Signs Temperature 98.1 F 09/23/19 06:00 Pulse Rate 60 09/23/19 06:00 Respiratory Rate 20 09/23/19 06:00 Blood Pressure 137/65 09/23/19 06:00 O2 Sat by Pulse Oximetry (%) 95 09/22/19 21:00 Neck: Yes: Supple Cardiovascular: Yes: Regular Rate and Rhythm, S1, S2 Respiratory: Yes: Diminished Gastrointestinal: Yes: Normal Bowel Sounds, Soft. No: Tenderness Edema: No Additional Findings/Remarks: - Review of Systems Constitutional: denies: Chills, Fever Cardiovascular: (+) Shortness of Breath. denies: Chest Pain, Palpitations Respiratory: (+) Cough, SOB, SOB on Exertion. denies: Hemoptysis, Orthopnea, PND, Wheezing Gastrointestinal: denies: Abdominal Pain, Constipation, Diarrhea, Melena, Nausea , Rectal Bleeding, Vomiting Genitourinary: denies: Dysuria, Hematuria Musculoskeletal: denies: Back Pain, Joint Pain Neurological: denies: Dizziness, Headache, Seizure, Syncope Problem List - Problems (1) Chest pain Code(s): R07.9 - CHEST PAIN, UNSPECIFIED (2) COPD (chronic obstructive pulmonary disease) Code(s): J44.9 - CHRONIC OBSTRUCTIVE PULMONARY DISEASE, UNSPECIFIED Qualifiers: COPD type: unspecified COPD Qualified Code(s): J44.9 - Chronic obstructive pulmonary disease, unspecified (3) COPD exacerbation Code(s): J44.1 - CHRONIC OBSTRUCTIVE PULMONARY DISEASE W (ACUTE) EXACERBATION (4) Diabetes Code(s): E11.9 - TYPE 2 DIABETES MELLITUS WITHOUT COMPLICATIONS Qualifiers: Diabetes mellitus type: type 2 Diabetes mellitus intermediate insulin use: without intermediate use Diabetes mellitus complication status: without complication Qualified Code(s): E11.9 - Type 2 diabetes mellitus without complications (5) Diabetic neuropathy Code(s): E11.40 - TYPE 2 DIABETES MELLITUS WITH DIABETIC NEUROPATHY, UNSP Qualifiers: Diabetes mellitus type: type 2 (6) Hypercholesterolemia Code(s): E78.0 - PURE HYPERCHOLESTEROLEMIA * DO NOT USE * (7) Hypertension Code(s): I10 - ESSENTIAL (PRIMARY) HYPERTENSION Qualifiers: Hypertension type: essential hypertension Qualified Code(s): I10 - Essential (primary) hypertension (8) Hypothyroidism Code(s): E03.9 - HYPOTHYROIDISM, UNSPECIFIED Qualifiers: Hypothyroidism type: unspecified Qualified Code(s): E03.9 - Hypothyroidism , unspecified (9) Interstitial lung disease Code(s): J84.9 - INTERSTITIAL PULMONARY DISEASE, UNSPECIFIED (10) HARISH (obstructive sleep apnea) Code(s): G47.33 - OBSTRUCTIVE SLEEP APNEA (ADULT) (PEDIATRIC) Assessment/Plan 1. Acute COPD exacerbation, history of ILD and atypical post-tussive chest pain 2. CAD with history of sub-endocardial ischemia, angina pectoris 3. Diastolic LV dysfunction with class 0 NYHA classification LV failure 4. HTN 5. DM 6. Hypercholesterolemia 7. Hypothyroidism 8. Peripheral diabetic neuropathy 9. OSAS PLAN: 1. Empiric antibiotics, bronchodilators, IV steroids with GI protection and Oxygen 2. Echocardiography report noted 3. Continue Coreg 6.25 mg BID and Ramipril 2.5 mg QD 4. Continue Lipitor 20 mg QHS and ASA 81 mg QD Further plans are to follow Jackson Purvis MD
--- NOTE | 2019-09-23 13:20 | PN ---
Progress Note, Physician - Current Medication List Current Medications: Active Medications Acetaminophen (Tylenol -) 650 mg PO Q6H PRN PRN Reason: FEVER Last Admin: 09/23/19 03:42 Dose: 650 mg Albuterol Sulfate (Ventolin 0.083% Nebulizer Soln -) 1 amp NEB Q4H PRN PRN Reason: SHORT OF BREATH/WHEEZING Albuterol/Ipratropium (Duoneb -) 1 amp NEB RTID [facility] Last Admin: 09/23/19 07:39 Dose: 1 amp Aspirin (Asa -) 81 mg PO DAILY [facility] Last Admin: 09/23/19 09:48 Dose: 81 mg Atorvastatin Calcium (Lipitor -) 20 mg PO HS [facility] Last Admin: 09/22/19 21:50 Dose: 20 mg Budesonide/Formoterol Fumarate (Symbicort 160/4.5mcg -) 2 puff IH BID [facility] Last Admin: 09/23/19 09:51 Dose: 2 puff Guaifenesin (Robitussin Dm -) 10 ml PO Q6H PRN PRN Reason: COUGH Last Admin: 09/23/19 09:50 Dose: 10 ml Heparin Sodium (Porcine) (Heparin -) 5,000 unit SQ BID [facility] Last Admin: 09/23/19 09:48 Dose: 5,000 unit Azithromycin (Zithromax 500mg Ivpb (Pre-Docked)) 500 mg in 250 mls @ 250 mls/ hr IVPB DAILY [facility] Last Admin: 09/23/19 09:51 Dose: 250 mls/hr Ceftriaxone Sodium 1 gm/ (Dextrose) 50 mls @ 100 mls/hr IVPB DAILY [facility]; Protocol Last Admin: 09/23/19 09:51 Dose: 100 mls/hr Levothyroxine Sodium (Synthroid -) 125 mcg PO DAILY@0700 [facility] Last Admin: 09/23/19 06:22 Dose: 125 mcg Magnesium Oxide (Mag-Ox -) 400 mg PO BID [facility] Last Admin: 09/23/19 10:07 Dose: 400 mg Methylprednisolone Sodium Succinate (Solu-Medrol -) 40 mg IVPUSH Q6H-IV ANU Last Admin: 09/23/19 09:51 Dose: 40 mg Montelukast Sodium (Singulair -) 10 mg PO HS [facility] Last Admin: 09/22/19 21:51 Dose: 10 mg Pantoprazole Sodium (Protonix -) 20 mg PO DAILY [facility] Last Admin: 09/23/19 09:50 Dose: 20 mg - Objective Vital Signs: Vital Signs Temperature 98.1 F 09/23/19 06:00 Pulse Rate 60 09/23/19 06:00 Respiratory Rate 20 09/23/19 06:00 Blood Pressure 137/65 09/23/19 06:00 O2 Sat by Pulse Oximetry (%) 95 09/22/19 21:00 Labs: CBC, BMP 09/21/19 06:43 09/21/19 06:43 INR, PTT INR 1.03 (0.83-1.09) 09/20/19 19:20
--- NOTE | 2019-09-23 15:23 | PN ---
Progress Note (short form) - Note Progress Note: feeling well wants to go home has coughing episodes but better Vital Signs - 24 hr 09/22/19 09/22/19 09/22/19 18:00 21:00 22:00 Temperature 98.7 F 99 F Pulse Rate 84 66 Respiratory 20 20 20 Rate Blood Pressure 146/45 L 121/57 L O2 Sat by Pulse 95 Oximetry (%) 09/23/19 09/23/19 09/23/19 02:00 06:00 14:00 Temperature 98.1 F 98.1 F 98.6 F Pulse Rate 62 60 63 Respiratory 20 20 20 Rate Blood Pressure 120/51 L 137/65 147/58 L O2 Sat by Pulse Oximetry (%) Current Medications Generic Name Dose Route Start Last Admin Trade Name Freq PRN Reason Stop Dose Admin Acetaminophen 650 mg 09/21/19 02:00 09/23/19 03:42 Tylenol - PO 650 mg Q6H PRN Administration FEVER Albuterol Sulfate 1 amp 09/21/19 15:03 Ventolin 0.083% Nebulizer Soln - NEB Q4H PRN SHORT OF BREATH/WHEEZING Albuterol/Ipratropium 1 amp 09/21/19 20:00 09/23/19 07:39 Duoneb - NEB 1 amp RTID ANU Administration Aspirin 81 mg 09/21/19 10:00 09/23/19 09:48 Asa - PO 81 mg DAILY ANU Administration Atorvastatin Calcium 20 mg 09/21/19 22:00 09/22/19 21:50 Lipitor - PO 20 mg HS ANU Administration Azithromycin 500 mg 09/24/19 10:00 Zithromax PO 09/26/19 10:01 DAILY ANU Budesonide/Formoterol Fumarate 2 puff 09/20/19 22:00 09/23/19 09:51 Symbicort 160/4.5mcg - IH 2 puff BID ANU Administration Guaifenesin 10 ml 09/20/19 23:28 09/23/19 09:50 Robitussin Dm - PO 10 ml Q6H PRN Administration COUGH Heparin Sodium (Porcine) 5,000 unit 09/20/19 22:00 09/23/19 09:48 Heparin - SQ 5,000 unit BID ANU Administration Ceftriaxone Sodium 1 gm/ 50 mls @ 100 mls/hr 09/21/19 10:00 09/23/19 09:51 Dextrose IVPB 100 mls/hr DAILY ANU Administration Protocol Levothyroxine Sodium 125 mcg 09/21/19 07:00 09/23/19 06:22 Synthroid - PO 125 mcg DAILY@0700 ANU Administration Magnesium Oxide 400 mg 09/21/19 22:00 09/23/19 10:07 Mag-Ox - PO 400 mg BID ANU Administration Methylprednisolone Sodium Succinate 40 mg 09/23/19 15:15 Solu-Medrol - IVPUSH Q8H ANU Montelukast Sodium 10 mg 09/20/19 22:00 09/22/19 21:51 Singulair - PO 10 mg HS ANU Administration Pantoprazole Sodium 20 mg 09/21/19 12:45 09/23/19 09:50 Protonix - PO 20 mg DAILY ANU Administration Sitagliptin Phosphate 100 mg 09/24/19 07:00 Januvia - PO ACBK [facility] Laboratory Results - last 24 hr 09/22/19 09/23/19 16:10 07:05 POC Glucometer 313 208 S1 S2 RRR Lungs crackles+ fine Decreased ronchi Abd- soft, NT no edema PLAN Assessment/Plan Better Steroids taper abx Nebulizer treatment oxygen Monitor bg d/c tele OOb - chair Problem List - Problems (1) Chest pain Code(s): R07.9 - CHEST PAIN, UNSPECIFIED (2) Cough Code(s): R05 - COUGH (3) Fever Code(s): R50.9 - FEVER, UNSPECIFIED (4) Leukocytosis Code(s): D72.829 - ELEVATED WHITE BLOOD CELL COUNT, UNSPECIFIED (5) Pneumonia Code(s): J18.9 - PNEUMONIA, UNSPECIFIED ORGANISM (6) COPD (chronic obstructive pulmonary disease) Code(s): J44.9 - CHRONIC OBSTRUCTIVE PULMONARY DISEASE, UNSPECIFIED Qualifiers: COPD type: unspecified COPD Qualified Code(s): J44.9 - Chronic obstructive pulmonary disease, unspecified
[2019-09-23] MEDS ORDERED: guaiFENesin/D-METHORPHAN HB 10 ML UNIT-DOSE CUPS PO PRN (19:03)
[2019-09-23] MEDS ORDERED: ACETAMINOPHEN 325 MG TABLET (FP) PO PRN (19:03)
[2019-09-23] MEDS ORDERED: ALBUTEROL SO4 0.083% IH SOL 2.5 MG/3 ML VIAL.NEB. NEB PRN (19:03)
[2019-09-23] MEDS ORDERED: ATORVASTATIN CA 20 MG TABLET (FP) PO SCH (22:00)
[2019-09-23] MEDS ORDERED: MONTELUKAST NA 10 MG TABLET PO SCH (22:00)
[2019-09-24] MEDS: methylPREDNISolone NA SUCC 40 MG/1 ML VIAL IVPUSH SCH (06:39)
[2019-09-24] MEDS ORDERED: LEVOTHYROXINE NA 125 MCG TABLET (FP) PO SCH (07:00)
[2019-09-24] MEDS ORDERED: sitaGLIPtin PHOSPHATE 50 MG TABLET PO SCH (07:00)
[2019-09-24] MEDS: ALBUTEROL SO4 2.5/IPRATROPIUM 0.5 INH SOL 3 ML VIAL.NEB. NEB SCH (08:00)
[2019-09-24 09:25] VITALS: BP 119/56; PULSE 61; TEMP 99.1
[2019-09-24] MEDS ORDERED: PT OWN MED DRAWER 7, Y5N ONE (09:27)
[2019-09-24] MEDS ORDERED: cefTRIAXone SODIUM 1 GM VIAL ONE (09:28)
[2019-09-24] MEDS ORDERED: DEXTROSE 5%-WATER - 50 ML IVPB ONE (09:29)
[2019-09-24] MEDS: MAGNESIUM OXIDE 400 MG TABLET (FP) PO SCH (09:38)
[2019-09-24] MEDS: HEPARIN NA (PORCINE) 5,000 UNITS/ML 1ML VIAL SQ SCH (09:38)
[2019-09-24] MEDS: BUDESONIDE/FORMETEROL FUMARATE 160/4.5 mcg INHALER IH SCH (09:39)
[2019-09-24] MEDS ORDERED: AZITHROMYCIN 500 MG TABLET PO SCH (10:00)
[2019-09-24] MEDS ORDERED: PANTOPRAZOLE 20 MG TABLET PO SCH (10:00)
[2019-09-24] MEDS ORDERED: ASPIRIN 81 MG CHEWABLE TABLETS PO SCH (10:00)
[2019-09-24] MEDS ORDERED: CEFTRIAXONE 1 GM in DEXTROSE 5%-WATER - 50 ML IVPB SCH (10:00)
--- NOTE | 2019-09-24 10:11 | PN ---
Progress Note, Physician History of Present Illness: Patient is a 73 year old female of descent with underlying history of breast CA s/p mastectomy s/p chemotherapy without radiation therapy, negative metastatic disease, COPD (2L NC @ night, symbicort), OSAS, ILD, HTN, hypercholesterolemia, type 2 diabetes mellitus, diabetic neuropathy, hypothyroidism and diastolic dysfunction, presented with shortness of breath, productive cough, and chest pain while coughing, since improving, afebrile yesterday. - Current Medication List Current Medications: Active Medications Acetaminophen (Tylenol -) 650 mg PO Q6H PRN PRN Reason: FEVER Albuterol Sulfate (Ventolin 0.083% Nebulizer Soln -) 1 amp NEB Q4H PRN PRN Reason: SHORT OF BREATH/WHEEZING Albuterol/Ipratropium (Duoneb -) 1 amp NEB RTID [facility] Last Admin: 09/23/19 20:25 Dose: 1 amp Aspirin (Asa -) 81 mg PO DAILY [facility] Last Admin: 09/24/19 09:38 Dose: 81 mg Atorvastatin Calcium (Lipitor -) 20 mg PO HS [facility] Last Admin: 09/23/19 21:59 Dose: 20 mg Azithromycin (Zithromax) 500 mg PO DAILY [facility] Stop: 09/26/19 10:01 Last Admin: 09/24/19 09:39 Dose: 500 mg Budesonide/Formoterol Fumarate (Symbicort 160/4.5mcg -) 2 puff IH BID [facility] Last Admin: 09/24/19 09:39 Dose: 2 puff Guaifenesin (Robitussin Dm -) 10 ml PO Q6H PRN PRN Reason: COUGH Last Admin: 09/24/19 09:38 Dose: 10 ml Heparin Sodium (Porcine) (Heparin -) 5,000 unit SQ BID [facility] Last Admin: 09/24/19 09:38 Dose: 5,000 unit Ceftriaxone Sodium 1 gm/ (Dextrose) 50 mls @ 100 mls/hr IVPB DAILY [facility]; Protocol Last Admin: 09/24/19 09:38 Dose: 100 mls/hr Levothyroxine Sodium (Synthroid -) 125 mcg PO DAILY@0700 [facility] Last Admin: 09/24/19 06:39 Dose: 125 mcg Magnesium Oxide (Mag-Ox -) 400 mg PO BID [facility] Last Admin: 09/24/19 09:38 Dose: 400 mg Methylprednisolone Sodium Succinate (Solu-Medrol -) 40 mg IVPUSH Q8H [facility] Last Admin: 09/24/19 06:39 Dose: 40 mg Montelukast Sodium (Singulair -) 10 mg PO HS [facility] Last Admin: 09/23/19 21:59 Dose: 10 mg Pantoprazole Sodium (Protonix -) 20 mg PO DAILY [facility] Last Admin: 09/24/19 09:39 Dose: 20 mg Sitagliptin Phosphate (Januvia -) 100 mg PO ACBK [facility] Last Admin: 09/24/19 06:39 Dose: 100 mg - Objective Vital Signs: Vital Signs Temperature 99.1 F 09/24/19 09:23 Pulse Rate 61 09/24/19 09:23 Respiratory Rate 19 09/24/19 09:23 Blood Pressure 119/56 L 09/24/19 09:23 O2 Sat by Pulse Oximetry (%) 97 09/23/19 21:00 Constitutional: Yes: No Distress, Calm Neck: Yes: Supple Cardiovascular: Yes: Regular Rate and Rhythm Respiratory: Yes: Regular, Diminished, On Nasal O2 Gastrointestinal: Yes: Normal Bowel Sounds, Soft, Abdomen, Obese Edema: No Labs: CBC, BMP 09/21/19 06:43 09/21/19 06:43 INR, PTT INR 1.03 (0.83-1.09) 09/20/19 19:20 Problem List - Problems (1) Cough Code(s): R05 - COUGH (2) COPD exacerbation Code(s): J44.1 - CHRONIC OBSTRUCTIVE PULMONARY DISEASE W (ACUTE) EXACERBATION (3) Chest discomfort Code(s): R07.89 - OTHER CHEST PAIN (4) Diabetes Code(s): E11.9 - TYPE 2 DIABETES MELLITUS WITHOUT COMPLICATIONS Qualifiers: Diabetes mellitus type: type 2 Diabetes mellitus chcf insulin use: without chcf use Diabetes mellitus complication status: without complication Qualified Code(s): E11.9 - Type 2 diabetes mellitus without complications (5) Hyperlipidemia associated with type 2 diabetes mellitus Code(s): E11.69 - TYPE 2 DIABETES MELLITUS WITH OTHER SPECIFIED COMPLICATION; E78.5 - HYPERLIPIDEMIA, UNSPECIFIED (6) Hypertension Code(s): I10 - ESSENTIAL (PRIMARY) HYPERTENSION Qualifiers: Hypertension type: essential hypertension Qualified Code(s): I10 - Essential (primary) hypertension (7) Hypothyroidism Code(s): E03.9 - HYPOTHYROIDISM, UNSPECIFIED Qualifiers: Hypothyroidism type: unspecified Qualified Code(s): E03.9 - Hypothyroidism , unspecified (8) Interstitial lung disease Code(s): J84.9 - INTERSTITIAL PULMONARY DISEASE, UNSPECIFIED (9) HARISH (obstructive sleep apnea) Code(s): G47.33 - OBSTRUCTIVE SLEEP APNEA (ADULT) (PEDIATRIC) (10) Reactive airway disease Code(s): J45.909 - UNSPECIFIED ASTHMA, UNCOMPLICATED Qualifiers: Asthma severity: unspecified severity Assessment/Plan 09/22/2019 Echo: Normal LV size and fxn LVEF 60-65%, impaired relaxation, mild LAE, tr-mild MR, mild TR, normal pulm systolic pressures 09/21/[address]: Extensive chronic ILD 09/12/2019 Brain MRI: Negative for acute stroke 1. Acute COPD exacerbation, history of ILD, atypical post-tussive chest pain 2. CAD with history of sub-endocardial ischemia, angina pectoris 3. Diastolic LV dysfunction with class 0 NYHA classification LV failure 4. HTN 5. DM 6. Hypercholesterolemia 7. Hypothyroidism 8. Peripheral diabetic neuropathy 9. OSAS PLAN: 1. Empiric antibiotics, bronchodilators, IV steroid taper with GI protection, O2 as needed, singulair 2. Continue Coreg 6.25 bid and Ramipril 2.5 qd 3. Continue Lipitor 20 qd and ASA 81 qd 4. D/c planning with f/u in office
--- NOTE | 2019-09-24 11:09 | DS ---
Physical Examination Vital Signs: Vital Signs Temperature 99.1 F 09/24/19 09:23 Pulse Rate 61 09/24/19 09:23 Respiratory Rate 19 09/24/19 09:23 Blood Pressure 119/56 L 09/24/19 09:23 O2 Sat by Pulse Oximetry (%) 97 09/23/19 21:00 Constitutional: Yes: No Distress Cardiovascular: Yes: Regular Rate and Rhythm Respiratory: Yes: Diminished, Other (fine crackles) Gastrointestinal: Yes: Normal Bowel Sounds, Soft, Abdomen, Obese. No: Tenderness Edema: No Labs: CBC, BMP 09/21/19 06:43 09/21/19 06:43 Discharge Summary Problems reviewed: Yes Reason For Visit: CHEST PAIN/COUGH/SEPSIS Current Active Problems Chest pain (Acute) Cough (Acute) Fever (Acute) Leukocytosis (Acute) Pneumonia (Acute) Sepsis (Acute) Hospital Course: Admitted for COPD exacerbation , pneumonia, CHF Seen by ID, Cardiology , Pulmonary Condition: Stable - Instructions Disposition: HOME - Home Medications Comprehensive Discharge Medication List: Ambulatory Orders Levothyroxine Sodium [Levo-T] 125 mcg PO DAILY 08/10/16 Memantine HCl [Namenda Xr] 14 mg PO DAILY 08/10/16 Albuterol 2.5/Ipratropium 0.5 [Duoneb -] 1 amp NEB Q4H PRN #0 amp 08/14/16 Albuterol 0.083% Nebulizer Zehra [Ventolin 0.083% Nebulizer Soln -] 1 amp NEB Q4H PRN #0 amp 09/04/16 Aspirin Coated [Ecotrin -] 81 mg PO DAILY tablet.ec 09/04/16 Ramipril [Altace] 2.5 mg PO DAILY #30 capsule 09/04/16 Benzonatate 200 mg PO DAILY 06/18/17 Carvedilol 6.25 mg PO BID 06/18/17 Cholecalciferol (Vitamin D3) [Vitamin D3 -] 1,000 unit PO DAILY 06/18/17 Olopatadine HCl [Pazeo] 1 drop OU DAILY 06/18/17 Simvastatin 40 mg PO DAILY 06/18/17 Sitagliptin Phosphate [Januvia] 100 mg PO DAILY 06/18/17 Glipizide/Metformin HCl [Glipizide-Metformin 5-500 mg] 1 each PO DAILY 06/19/17 Budesonide/Formeterol Fumarate [SYMBICORT 160/4.5mcg -] 1 inh PO BID 10/01/18 Montelukast Sodium [Singulair] 10 mg PO DAILY 10/01/18 Acetaminophen [Tylenol .Regular Strength -] 650 mg PO Q6H PRN tablet 12/09/18 Guaifenesin [Robitussin -] 10 ml PO Q6H PRN cup 12/09/18 Pantoprazole Sodium [Protonix -] 40 mg PO DAILY 30 Days #30 tablet.ec 12/09/18 Lidocaine 5% Patch [Lidoderm -] 1 patch TP DAILY #30 patch 09/03/19 Gabapentin [Neurontin -] 300 mg PO TID 09/23/19 Amoxicillin/Potassium Clav [Augmentin 875-125 Tablet] 1 each PO BID #8 tablet Prednisone 10 mg PO DAILY #30 tablet 09/24/19
== END 2019-09-24 14:22 | disposition home or self-care (01) | DRG 871 ==
LOC: JER 18:47 → JERBED 20:38 → J4W 09-21 04:59 → J5S 09-23 18:53
PROVIDERS: ADMIT Internal Medicine; ATTEND Internal Medicine
DX: A41.9 Sepsis, unspecified organism (principal); J18.9 Pneumonia, unspecified organism; J44.1 Chronic obstructive pulmonary disease with (acute) exacerbation; I45.2 Bifascicular block; I10 Essential (primary) hypertension; E78.5 Hyperlipidemia, unspecified; E13.40 Other specified diabetes mellitus with diabetic neuropathy, unspecified; E03.9 Hypothyroidism, unspecified; D72.829 Elevated white blood cell count, unspecified; Z99.81 Dependence on supplemental oxygen; R05 Cough; G47.33 Obstructive sleep apnea (adult) (pediatric); Z85.3 Personal history of malignant neoplasm of breast; I51.89 Other ill-defined heart diseases
CPT/HCPCS: 36415; 36600; 71045-TC-FY; 71250-TC; 80048; 80053; 80061; 81003; 82375; 82803; 82962; 83036; 83050; 83605; 83721; 83735; 83880; 84100; 84443; 84484; 85025; 85610; 85730; 87040; 87086; 87804; 87899; 93005; 93010; 93306-TC; 94640; 97116-GP; 97161-GP; 99285-25; J0131; J1644; J7030

== ENCOUNTER 2020-09-03 13:36 | Inpatient (IN) | payer OTHER ==
[2020-09-03 13:55] VITALS: BMI 36.3
[2020-09-03 16:06] LABS: BASO % 0.5 % (0-2.0); HEMATOCRIT 39.1 % (32.4-45.2); HEMOGLOBIN 12.7 GM/dL (10.7-15.3); LYMPH % 11.4 % (8-40); MCH 27.6 pg (25.7-33.7); MCHC 32.4 g/dl (32.0-36.0); MEAN CELL VOLUME 85.1 fl (80-96); MEAN PLT VOLUME 9.9 fl (7.5-11.1); MONO % 2.3 % (3.8-10.2); NEUT % 84.8 % (42.8-82.8); PLATELET COUNT 201 K/MM3 (134-434); RBC 4.59 M/mm3 (3.60-5.2); RDW 15.3 % (11.6-15.6); WHITE BLOOD COUNT 11.9 K/mm3 (4.0-10.0)
[2020-09-03 16:34] LABS: POTASSIUM 4.3 mmol/L (3.5-5.1)
[2020-09-03 16:38] LABS: CALCIUM 8.9 mg/dL (8.5-10.1)
[2020-09-03 16:39] LABS: ALBUMIN 3.7 g/dl (3.4-5.0); BLOOD UREA NITROGEN 13.4 mg/dL (7-18)
[2020-09-03 16:42] LABS: CREATININE 0.8 mg/dL (0.55-1.3)
[2020-09-03 16:43] LABS: BILIRUBIN,TOTAL 0.9 mg/dL (0.2-1); TOT PROT 8.3 g/dl (6.4-8.2)
[2020-09-03 16:46] LABS: PH,URINE 7.5 (5.0-8.0); URINE APPEARANCE TURBID; URINE BILIRUBIN NEGATIVE (NEGATIVE); URINE COLOR YELLOW; URINE GLUCOSE (UA) NEGATIVE (NEGATIVE); URINE KETONE TRACE (NEGATIVE); URINE LEUK ESTERASE NEGATIVE (NEGATIVE); URINE NITRITE NEGATIVE (NEGATIVE); URINE PROTEIN NEGATIVE (NEGATIVE); URINE UROBILINOGEN 0.2 mg/dL (0.2-1.0)
[2020-09-03] MEDS: INSULIN SLIDING SCALE (NOVOLOG) 1 VIAL SQ SCH (22:14)
[2020-09-03] MEDS ORDERED: ACETAMINOPHEN 325 MG TABLET (FP) PO ONE (22:18)
[2020-09-03] MEDS ORDERED: ACETAMINOPHEN 325 MG TABLET (FP) ONE (22:19)
[2020-09-04 09:30] LABS: HEMATOCRIT 39.5 % (32.4-45.2); HEMOGLOBIN 13.1 GM/dL (10.7-15.3); MCH 28.3 pg (25.7-33.7); MCHC 33.2 g/dl (32.0-36.0); MEAN PLT VOLUME 9.8 fl (7.5-11.1); PLATELET COUNT 189 K/MM3 (134-434); RBC 4.64 M/mm3 (3.60-5.2); RDW 15.3 % (11.6-15.6); WHITE BLOOD COUNT 6.7 K/mm3 (4.0-10.0)
[2020-09-04] MEDS ORDERED: PNEUMOC 13-VAL CONJ-DIP CRM/PF 0.5 ML DISP.SYRIN IM ONE (10:00)
[2020-09-04 10:10] LABS: POTASSIUM 4.2 mmol/L (3.5-5.1)
[2020-09-04 10:12] LABS: ALBUMIN 3.5 g/dl (3.4-5.0); BLOOD UREA NITROGEN 14.6 mg/dL (7-18)
[2020-09-04 10:13] LABS: CALCIUM 9.1 mg/dL (8.5-10.1)
[2020-09-04 10:15] LABS: CREATININE 0.8 mg/dL (0.55-1.3)
[2020-09-04 10:17] LABS: BILIRUBIN,TOTAL 0.8 mg/dL (0.2-1); TOT PROT 7.6 g/dl (6.4-8.2)
[2020-09-04] MEDS: INSULIN SLIDING SCALE (NOVOLOG) 1 VIAL SQ SCH ×4 (10:26→21:57)
[2020-09-04] MEDS: ENOXAPARIN NA (PORCINE) 40 MG/0.4 ML DISP.SYRIN SQ SCH (10:30)
[2020-09-04] MEDS ORDERED: DEXTROSE 5%-WATER - 50 ML IVPB ONE (13:09)
[2020-09-04] MEDS ORDERED: cefTRIAXone SODIUM 1 GM VIAL ONE (13:10)
[2020-09-04] MEDS: CEFTRIAXONE 1 GM in DEXTROSE 5%-WATER - 50 ML IVPB SCH (13:25)
[2020-09-04] MEDS: ACETAMINOPHEN 325 MG TABLET (FP) PO PRN (13:25)
[2020-09-04] MEDS: INSULIN (NOVOLOG) ASPART 100 UNITS/ML 10ML VIAL SQ SCH (17:46)
[2020-09-04] MEDS: MEMANTINE HCL 5 MG TABLET (UD) PO SCH (21:56)
[2020-09-04] MEDS: CARVEDILOL 3.125 MG TABLET (FP) PO SCH (21:56)
[2020-09-04] MEDS: BUDESONIDE/FORMETEROL FUMARATE 160/4.5 mcg INHALER IH SCH (21:57)
[2020-09-04] MEDS: ATORVASTATIN CA 20 MG TABLET (FP) PO SCH (21:57)
[2020-09-04] MEDS: GABAPENTIN 300 MG CAPSULE PO SCH (21:57)
[2020-09-05] MEDS: GABAPENTIN 300 MG CAPSULE PO SCH ×3 (06:15→21:21)
[2020-09-05] MEDS: LEVOTHYROXINE NA 150 MCG TABLET PO SCH (06:16)
[2020-09-05] MEDS: INSULIN SLIDING SCALE (NOVOLOG) 1 VIAL SQ SCH ×4 (06:17→21:22)
[2020-09-05] MEDS: INSULIN (NOVOLOG) ASPART 100 UNITS/ML 10ML VIAL SQ SCH ×2 (06:17→16:26)
[2020-09-05] MEDS ORDERED: DEXTROSE 5%-WATER - 50 ML IVPB ONE (09:06)
[2020-09-05] MEDS ORDERED: cefTRIAXone SODIUM 1 GM VIAL ONE (09:06)
[2020-09-05] MEDS: glipiZIDE 5 MG TABLET (FP) PO SCH (09:15)
[2020-09-05] MEDS: CARVEDILOL 3.125 MG TABLET (FP) PO SCH ×2 (09:15→21:21)
[2020-09-05] MEDS: RAMIPRIL 2.5 MG CAPSULE PO SCH (09:15)
[2020-09-05] MEDS: metFORMIN HCL 500 MG TABLET (FP) PO SCH (09:15)
[2020-09-05] MEDS: MEMANTINE HCL 5 MG TABLET (UD) PO SCH ×2 (09:15→21:21)
[2020-09-05] MEDS: ASPIRIN COATED 81 MG TABLET.EC PO SCH (09:15)
[2020-09-05] MEDS: CEFTRIAXONE 1 GM in DEXTROSE 5%-WATER - 50 ML IVPB SCH (09:15)
[2020-09-05] MEDS: ENOXAPARIN NA (PORCINE) 40 MG/0.4 ML DISP.SYRIN SQ SCH (09:16)
[2020-09-05] MEDS: BUDESONIDE/FORMETEROL FUMARATE 160/4.5 mcg INHALER IH SCH ×2 (09:18→21:22)
[2020-09-05] MEDS ORDERED: PATIENT'S OWN MEDICATION (NON-FORMULARY) (Glipizide/Metformin Hcl [Glipizide-Metformin 5-5 PO SCH (10:00)
[2020-09-05] MEDS: ATORVASTATIN CA 20 MG TABLET (FP) PO SCH (21:21)
[2020-09-06] MEDS: GABAPENTIN 300 MG CAPSULE PO SCH ×3 (05:43→21:45)
[2020-09-06] MEDS: LEVOTHYROXINE NA 150 MCG TABLET PO SCH (06:20)
[2020-09-06] MEDS: INSULIN (NOVOLOG) ASPART 100 UNITS/ML 10ML VIAL SQ SCH ×2 (06:20→16:33)
[2020-09-06] MEDS: INSULIN SLIDING SCALE (NOVOLOG) 1 VIAL SQ SCH ×4 (06:20→21:49)
[2020-09-06] MEDS ORDERED: DEXTROSE 5%-WATER - 50 ML IVPB ONE (09:48)
[2020-09-06] MEDS ORDERED: cefTRIAXone SODIUM 1 GM VIAL ONE (09:48)
[2020-09-06] MEDS: metFORMIN HCL 500 MG TABLET (FP) PO SCH (09:49)
[2020-09-06] MEDS: CEFTRIAXONE 1 GM in DEXTROSE 5%-WATER - 50 ML IVPB SCH (09:49)
[2020-09-06] MEDS: RAMIPRIL 2.5 MG CAPSULE PO SCH (09:49)
[2020-09-06] MEDS: ENOXAPARIN NA (PORCINE) 40 MG/0.4 ML DISP.SYRIN SQ SCH (09:50)
[2020-09-06] MEDS: ASPIRIN COATED 81 MG TABLET.EC PO SCH (09:50)
[2020-09-06] MEDS: MEMANTINE HCL 5 MG TABLET (UD) PO SCH ×2 (09:50→21:45)
[2020-09-06] MEDS: CARVEDILOL 3.125 MG TABLET (FP) PO SCH ×2 (09:50→21:46)
[2020-09-06] MEDS: glipiZIDE 5 MG TABLET (FP) PO SCH (09:50)
[2020-09-06] MEDS: BUDESONIDE/FORMETEROL FUMARATE 160/4.5 mcg INHALER IH SCH ×2 (09:52→21:51)
[2020-09-06] MEDS: ATORVASTATIN CA 20 MG TABLET (FP) PO SCH (21:46)
[2020-09-06] MEDS: ACETAMINOPHEN 325 MG TABLET (FP) PO PRN (23:08)
[2020-09-07] MEDS: GABAPENTIN 300 MG CAPSULE PO SCH ×2 (06:03→15:31)
[2020-09-07] MEDS: INSULIN (NOVOLOG) ASPART 100 UNITS/ML 10ML VIAL SQ SCH (06:06)
[2020-09-07] MEDS: INSULIN SLIDING SCALE (NOVOLOG) 1 VIAL SQ SCH ×2 (06:06→12:16)
[2020-09-07] MEDS: LEVOTHYROXINE NA 150 MCG TABLET PO SCH (06:40)
[2020-09-07] MEDS ORDERED: metFORMIN HCL 500 MG TABLET (FP) PO SCH (07:00)
[2020-09-07] MEDS ORDERED: glipiZIDE 5 MG TABLET (FP) PO SCH (07:00)
[2020-09-07] MEDS ORDERED: cefTRIAXone SODIUM 1 GM VIAL ONE (09:31)
[2020-09-07] MEDS ORDERED: DEXTROSE 5%-WATER - 50 ML IVPB ONE (09:31)
[2020-09-07 09:49] VITALS: BP 117/46; PULSE 61; TEMP 98.5
[2020-09-07] MEDS: ENOXAPARIN NA (PORCINE) 40 MG/0.4 ML DISP.SYRIN SQ SCH (10:09)
[2020-09-07] MEDS: RAMIPRIL 2.5 MG CAPSULE PO SCH (10:10)
[2020-09-07] MEDS: BUDESONIDE/FORMETEROL FUMARATE 160/4.5 mcg INHALER IH SCH (10:10)
[2020-09-07] MEDS: MEMANTINE HCL 5 MG TABLET (UD) PO SCH (10:10)
[2020-09-07] MEDS: ASPIRIN COATED 81 MG TABLET.EC PO SCH (10:10)
[2020-09-07] MEDS: CEFTRIAXONE 1 GM in DEXTROSE 5%-WATER - 50 ML IVPB SCH (10:10)
[2020-09-07] MEDS: CARVEDILOL 3.125 MG TABLET (FP) PO SCH (10:10)
== END 2020-09-07 14:30 | disposition home or self-care (01) | DRG 313 ==
LOC: JER 13:36 → JERBED 17:58 → OBSVTOIN 17:58 → J6WEST-2 09-04 00:23
PROVIDERS: ADMIT Internal Medicine; ATTEND Internal Medicine
DX: R07.89 Other chest pain (principal); J84.9 Interstitial pulmonary disease, unspecified; I50.32 Chronic diastolic (congestive) heart failure; E78.5 Hyperlipidemia, unspecified; E11.9 Type 2 diabetes mellitus without complications; E03.9 Hypothyroidism, unspecified; J44.9 Chronic obstructive pulmonary disease, unspecified; G47.33 Obstructive sleep apnea (adult) (pediatric); R74.8 Abnormal levels of other serum enzymes; E66.9 Obesity, unspecified; Z68.36 Body mass index [BMI] 36.0-36.9, adult; H92.02 Otalgia, left ear; I45.10 Unspecified right bundle-branch block; R42 Dizziness and giddiness; I11.0 Hypertensive heart disease with heart failure; E11.40 Type 2 diabetes mellitus with diabetic neuropathy, unspecified; Z85.3 Personal history of malignant neoplasm of breast; Z99.81 Dependence on supplemental oxygen
CPT/HCPCS: 36415; 70130-TC-FY; 70450-TC; 71046-TC-FY; 80053; 80061; 81003; 82550; 82553; 82962; 83721; 84439; 84443; 84484; 85025; 85027; 87086; 93005; 93010; 93306-TC; 99285-25; C9803; U0003

== ENCOUNTER 2020-09-10 22:25 | Inpatient (IN) | payer OTHER ==
[2020-09-10 22:34] VITALS: BMI 40.4
[2020-09-11] MEDS ORDERED: KETOROLAC TROMETHAMINE 30 MG/1 ML VIAL IVPUSH ONE (00:07)
[2020-09-11] MEDS ORDERED: LIDOCAINE 5% TOPICAL PATCH TP ONE (00:07)
[2020-09-11] MEDS ORDERED: diazePAM 5 MG TABLET PO ONE (00:07)
[2020-09-11] MEDS ORDERED: KETOROLAC TROMETHAMINE 30 MG/1 ML VIAL ONE (00:27)
[2020-09-11] MEDS ORDERED: LIDOCAINE 5% TOPICAL PATCH ONE (00:27)
[2020-09-11 00:38] LABS: BASO % 0.6 % (0-2.0); EOS % 1.2 % (0-4.5); HEMOGLOBIN 12.2 GM/dL (10.7-15.3); LYMPH % 11.9 % (8-40); MCH 28.2 pg (25.7-33.7); MCHC 32.9 g/dl (32.0-36.0); MEAN CELL VOLUME 85.8 fl (80-96); MEAN PLT VOLUME 9.9 fl (7.5-11.1); MONO % 3.6 % (3.8-10.2); NEUT % 82.7 % (42.8-82.8); PLATELET COUNT 185 K/MM3 (134-434); RBC 4.32 M/mm3 (3.60-5.2); RDW 15.3 % (11.6-15.6); WHITE BLOOD COUNT 12.5 K/mm3 (4.0-10.0)
[2020-09-11 01:03] LABS: POTASSIUM 3.9 mmol/L (3.5-5.1)
[2020-09-11 01:05] LABS: ALBUMIN 3.4 g/dl (3.4-5.0); BLOOD UREA NITROGEN 13.2 mg/dL (7-18); CALCIUM 8.8 mg/dL (8.5-10.1)
[2020-09-11 01:09] LABS: CREATININE 0.7 mg/dL (0.55-1.3)
[2020-09-11 01:10] LABS: BILIRUBIN,TOTAL 0.6 mg/dL (0.2-1); TOT PROT 7.6 g/dl (6.4-8.2)
[2020-09-11 01:12] LABS: PH,URINE 5.5 (5.0-8.0); URINE APPEARANCE CLEAR; URINE BILIRUBIN NEGATIVE (NEGATIVE); URINE COLOR YELLOW; URINE GLUCOSE (UA) NEGATIVE (NEGATIVE); URINE KETONE TRACE (NEGATIVE); URINE LEUK ESTERASE NEGATIVE (NEGATIVE); URINE NITRITE NEGATIVE (NEGATIVE); URINE PROTEIN NEGATIVE (NEGATIVE); URINE UROBILINOGEN 0.2 mg/dL (0.2-1.0)
[2020-09-11 06:51] LABS: BASO % 0.7 % (0-2.0); EOS % 1.6 % (0-4.5); HEMATOCRIT 37.5 % (32.4-45.2); HEMOGLOBIN 12.6 GM/dL (10.7-15.3); LYMPH % 22.6 % (8-40); MCH 28.6 pg (25.7-33.7); MCHC 33.6 g/dl (32.0-36.0); MEAN CELL VOLUME 85.2 fl (80-96); MEAN PLT VOLUME 9.6 fl (7.5-11.1); MONO % 4.8 % (3.8-10.2); NEUT % 70.3 % (42.8-82.8); PLATELET COUNT 185 K/MM3 (134-434); RDW 15.1 % (11.6-15.6); WHITE BLOOD COUNT 9.4 K/mm3 (4.0-10.0)
[2020-09-11 07:02] LABS: POTASSIUM 4.4 mmol/L (3.5-5.1)
[2020-09-11 07:05] LABS: CALCIUM 8.6 mg/dL (8.5-10.1)
[2020-09-11 07:06] LABS: ALBUMIN 3.3 g/dl (3.4-5.0); BLOOD UREA NITROGEN 15.1 mg/dL (7-18); MAGNESIUM 1.6 mg/dL (1.8-2.4)
[2020-09-11 07:09] LABS: CREATININE 0.7 mg/dL (0.55-1.3); PHOSPHOROUS 4.5 mg/dL (2.5-4.9)
[2020-09-11 07:10] LABS: BILIRUBIN,TOTAL 0.6 mg/dL (0.2-1); TOT PROT 7.4 g/dl (6.4-8.2)
[2020-09-11] MEDS: INSULIN SLIDING SCALE (NOVOLOG) 1 VIAL SQ SCH ×4 (07:38→23:49)
[2020-09-11] MEDS ORDERED: ACETAMINOPHEN 325 MG TABLET (FP) ONE ×2 (09:16→18:12)
[2020-09-11] MEDS: ACETAMINOPHEN 325 MG TABLET (FP) PO PRN (09:24)
[2020-09-11] MEDS ORDERED: ENOXAPARIN NA (PORCINE) 40 MG/0.4 ML DISP.SYRIN SQ ONE (09:26)
[2020-09-11] MEDS ORDERED: CEFTRIAXONE 1,000 MG in DEXTROSE 5%-WATER - 50 ML IVPB ONE (09:54)
[2020-09-11] MEDS: ENOXAPARIN NA (PORCINE) 40 MG/0.4 ML DISP.SYRIN SQ SCH (10:01)
[2020-09-11] MEDS ORDERED: CEFTRIAXONE 1 GM/50 ML BAG ONE (10:04)
[2020-09-11] MEDS ORDERED: GABAPENTIN 100 MG CAPSULE ONE (13:19)
[2020-09-11] MEDS: GABAPENTIN 300 MG CAPSULE PO SCH ×2 (13:33→23:42)
[2020-09-11] MEDS ORDERED: IBUPROFEN 400 MG TABLET (FP) PO ONE (14:26)
[2020-09-11 17:02] LABS: N-TERMINAL BNP 95.3 pg/ml (5-125)
[2020-09-11] MEDS ORDERED: ACETAMINOPHEN 1000 MG/100 ML VIAL (NON FORMULARY) IVPB ONE (19:52)
[2020-09-11] MEDS ORDERED: ACETAMINOPHEN INJECTION 100 ML IVPB ONE (19:54)
[2020-09-11] MEDS: LIDOCAINE 5% TOPICAL PATCH TP SCH (20:03)
[2020-09-11] MEDS: LIDOCAINE PATCH REMOVAL MC SCH ×2 (23:41→23:42)
[2020-09-11] MEDS: CARVEDILOL 3.125 MG TABLET (FP) PO SCH (23:41)
[2020-09-12] MEDS: BUDESONIDE/FORMETEROL FUMARATE 160/4.5 mcg INHALER IH SCH ×3 (07:21→22:53)
[2020-09-12] MEDS: GABAPENTIN 300 MG CAPSULE PO SCH ×3 (07:21→22:52)
[2020-09-12] MEDS: INSULIN SLIDING SCALE (NOVOLOG) 1 VIAL SQ SCH ×4 (07:23→22:52)
[2020-09-12] MEDS: LEVOTHYROXINE NA 150 MCG TABLET PO SCH (07:43)
[2020-09-12] MEDS ORDERED: cefTRIAXone SODIUM 1 GM VIAL ONE (09:15)
[2020-09-12] MEDS ORDERED: PT OWN MED DRAWER 7, Y5N ONE ×2 (09:15→22:31)
[2020-09-12] MEDS ORDERED: DEXTROSE 5%-WATER - 50 ML IVPB ONE (09:15)
[2020-09-12] MEDS ORDERED: PATIENT'S OWN MEDICATION (NON-FORMULARY) (Memantine Hcl [Namenda Xr] 14 MG Cap.Spr.24) PO SCH (10:00)
[2020-09-12] MEDS ORDERED: FLU VACCINE (FLULAVAL) PF 60 MCG/0.5 ML SYRINGE 2020-2021 IM ONE (10:00)
[2020-09-12] MEDS ORDERED: PATIENT'S OWN MEDICATION (NON-FORMULARY) (Olopatadine Hcl [Pazeo] 2.5 ML Drops) OU SCH (10:00)
[2020-09-12] MEDS: CEFTRIAXONE 1 GM in DEXTROSE 5%-WATER - 50 ML IVPB SCH (10:04)
[2020-09-12] MEDS: ENOXAPARIN NA (PORCINE) 40 MG/0.4 ML DISP.SYRIN SQ SCH (10:04)
[2020-09-12] MEDS: ASPIRIN COATED 81 MG TABLET.EC PO SCH (10:05)
[2020-09-12] MEDS: MEMANTINE HCL 5 MG TABLET (UD) PO SCH ×2 (10:05→22:52)
[2020-09-12] MEDS: CARVEDILOL 3.125 MG TABLET (FP) PO SCH ×2 (10:05→22:52)
[2020-09-12] MEDS: PANTOPRAZOLE 40 MG TABLET PO SCH (10:06)
[2020-09-12] MEDS: CHOLECALCIFEROL (VIT D3) 1,000 UNIT (25 MCG) TABLET PO SCH (10:06)
[2020-09-12] MEDS: RAMIPRIL 2.5 MG CAPSULE PO SCH (10:06)
[2020-09-12] MEDS: MONTELUKAST NA 10 MG TABLET PO SCH (10:07)
[2020-09-12] MEDS: LIDOCAINE 5% TOPICAL PATCH TP SCH (10:07)
[2020-09-12] MEDS ORDERED: ATORVASTATIN CA 20 MG TABLET (FP) PO SCH (22:00)
[2020-09-12] MEDS: LIDOCAINE PATCH REMOVAL MC SCH ×2 (22:52→22:53)
[2020-09-13] MEDS: ACETAMINOPHEN 325 MG TABLET (FP) PO PRN (02:16)
[2020-09-13] MEDS: GABAPENTIN 300 MG CAPSULE PO SCH ×2 (06:33→15:41)
[2020-09-13] MEDS: LEVOTHYROXINE NA 150 MCG TABLET PO SCH (06:34)
[2020-09-13] MEDS: INSULIN SLIDING SCALE (NOVOLOG) 1 VIAL SQ SCH ×2 (06:34→12:06)
[2020-09-13] MEDS ORDERED: cefTRIAXone SODIUM 1 GM VIAL ONE (09:08)
[2020-09-13] MEDS ORDERED: DEXTROSE 5%-WATER - 50 ML IVPB ONE (09:08)
[2020-09-13] MEDS: ENOXAPARIN NA (PORCINE) 40 MG/0.4 ML DISP.SYRIN SQ SCH (09:19)
[2020-09-13] MEDS: PANTOPRAZOLE 40 MG TABLET PO SCH (09:19)
[2020-09-13] MEDS: MONTELUKAST NA 10 MG TABLET PO SCH (09:19)
[2020-09-13] MEDS: CEFTRIAXONE 1 GM in DEXTROSE 5%-WATER - 50 ML IVPB SCH (09:19)
[2020-09-13] MEDS: MEMANTINE HCL 5 MG TABLET (UD) PO SCH (09:19)
[2020-09-13] MEDS: CHOLECALCIFEROL (VIT D3) 1,000 UNIT (25 MCG) TABLET PO SCH (09:19)
[2020-09-13] MEDS: ASPIRIN COATED 81 MG TABLET.EC PO SCH (09:20)
[2020-09-13] MEDS: RAMIPRIL 2.5 MG CAPSULE PO SCH (09:20)
[2020-09-13] MEDS: LIDOCAINE 5% TOPICAL PATCH TP SCH (09:20)
[2020-09-13] MEDS: CARVEDILOL 3.125 MG TABLET (FP) PO SCH (09:20)
[2020-09-13] MEDS: BUDESONIDE/FORMETEROL FUMARATE 160/4.5 mcg INHALER IH SCH (09:24)
[2020-09-13 17:00] VITALS: BP 126/64; PULSE 72; TEMP 97.9
== END 2020-09-13 18:02 | disposition home or self-care (01) | DRG 153 ==
LOC: JER 22:25 → JERBED 09-11 03:49 → J4W 09-11 21:36
PROVIDERS: ADMIT Internal Medicine; ATTEND Internal Medicine
DX: H70.009 Acute mastoiditis without complications, unspecified ear (principal); Z68.41 Body mass index [BMI] 40.0-44.9, adult; J84.9 Interstitial pulmonary disease, unspecified; I45.2 Bifascicular block; I10 Essential (primary) hypertension; E78.5 Hyperlipidemia, unspecified; E11.9 Type 2 diabetes mellitus without complications; J44.9 Chronic obstructive pulmonary disease, unspecified; F03.90 Unspecified dementia, unspecified severity, without behavioral disturbance, psychotic disturbance, mood disturbance, and anxiety; E66.01 Morbid (severe) obesity due to excess calories; G47.33 Obstructive sleep apnea (adult) (pediatric); I45.10 Unspecified right bundle-branch block; H92.09 Otalgia, unspecified ear; R55 Syncope and collapse; W18.39XA Other fall on same level, initial encounter; Y92.098 Other place in other non-institutional residence as the place of occurrence of the external cause; Z85.3 Personal history of malignant neoplasm of breast; Z99.81 Dependence on supplemental oxygen
CPT/HCPCS: 36415; 70450-TC; 71045-TC-FY; 71250-TC; 72125-TC; 80053; 81003; 82962; 83735; 83880; 84100; 84439; 84443; 84484; 85025; 87086; 87186; 93005; 93010; 93880-TC; 99285-25; C9803; J0131; U0003

== ENCOUNTER 2020-11-04 01:29 | Emergency (ER) | payer OTHER ==
[2020-11-04 01:56] VITALS: BMI 35.3
[2020-11-04] MEDS ORDERED: MECLIZINE HCL 25 MG TABLET (FP) PO ONE (02:39)
[2020-11-04] MEDS ORDERED: LACTATED RINGERS SOLUTION 1000 ML INFUS.BAG IV ONE (02:39)
[2020-11-04] MEDS ORDERED: METOCLOPRAMIDE HCL INJECTION 10 MG/2 ML VIAL IVPUSH ONE (02:39)
[2020-11-04] MEDS ORDERED: MECLIZINE HCL 25 MG TABLET (FP) ONE (03:05)
[2020-11-04] MEDS ORDERED: METOCLOPRAMIDE HCL INJECTION 10 MG/2 ML VIAL ONE (03:05)
[2020-11-04 03:31] LABS: BASO % 1.1 % (0-2.0); EOS % 2.7 % (0-4.5); HEMOGLOBIN 12.8 GM/dL (10.7-15.3); LYMPH % 12.3 % (8-40); MCHC 32.8 g/dl (32.0-36.0); MEAN CELL VOLUME 85.5 fl (80-96); MEAN PLT VOLUME 10.1 fl (7.5-11.1); MONO % 5.6 % (3.8-10.2); NEUT % 78.3 % (42.8-82.8); PLATELET COUNT 188 K/MM3 (134-434); RBC 4.56 M/mm3 (3.60-5.2)
[2020-11-04 03:49] LABS: ALBUMIN 3.5 g/dl (3.4-5.0); CALCIUM 9.1 mg/dL (8.5-10.1)
[2020-11-04 03:50] LABS: BLOOD UREA NITROGEN 11.5 mg/dL (7-18)
[2020-11-04 03:53] LABS: CREATININE 0.8 mg/dL (0.55-1.3)
[2020-11-04 03:54] LABS: BILIRUBIN,TOTAL 0.7 mg/dL (0.2-1)
[2020-11-04 04:23] LABS: PH,URINE 6.5 (5.0-8.0); URINE APPEARANCE CLEAR; URINE BILIRUBIN NEGATIVE (NEGATIVE); URINE COLOR YELLOW; URINE GLUCOSE (UA) NEGATIVE (NEGATIVE); URINE KETONE NEGATIVE (NEGATIVE); URINE LEUK ESTERASE NEGATIVE (NEGATIVE); URINE NITRITE NEGATIVE (NEGATIVE); URINE PROTEIN TRACE (NEGATIVE)
[2020-11-04 06:44] VITALS: PULSE 51
[2020-11-04 08:52] VITALS: BP 128/74; TEMP 97.6
== END 2020-11-04 08:15 | disposition home or self-care (01) ==
LOC: JER 01:29
PROC: 3E033NZ Introduction of Analgesics, Hypnotics, Sedatives into Peripheral Vein, Percutaneous Approach (ICD-10-PCS; principal; 2020-11-04)
DX: R11.2 Nausea with vomiting, unspecified (principal); R42 Dizziness and giddiness
CPT/HCPCS: 36415; 71045-TC-FY; 80053; 81003; 82962; 83735; 85025; 87086; 93005; 93010; 99285-25

== ENCOUNTER 2021-01-10 16:24 | Emergency (ER) | payer OTHER ==
[2021-01-10 16:45] VITALS: BP 123/72; PULSE 54; TEMP 99; BMI 28.4
== END 2021-01-10 18:16 | disposition home or self-care (01) ==
LOC: JER 16:24
DX: H11.32 Conjunctival hemorrhage, left eye (principal); H11.422 Conjunctival edema, left eye
CPT/HCPCS: 99283-25

== ENCOUNTER 2022-01-01 18:38 | Observation (INO) | payer OTHER ==
[2022-01-01 18:52] VITALS: BMI 24.7
[2022-01-01] MEDS ORDERED: ACETAMINOPHEN 1000 MG/100 ML BAG IVPB ONE (19:59)
[2022-01-01] MEDS ORDERED: ACETAMINOPHEN INJECTION 100 ML IVPB ONE (20:24)
[2022-01-01] MEDS ORDERED: FUROSEMIDE 40 MG/4 ML INJECTABLE VIAL IVPUSH ONE (20:46)
[2022-01-01 21:13] LABS: BASO % 0.8 % (0-2.0); EOS % 1.9 % (0-4.5); HEMATOCRIT 40.1 % (32.4-45.2); HEMOGLOBIN 13.2 GM/dL (10.7-15.3); MCH 26.7 pg (25.7-33.7); MCHC 32.9 g/dl (32.0-36.0); MEAN PLT VOLUME 9.2 fl (7.5-11.1); MONO % 5.7 % (3.8-10.2); NEUT % 72.6 % (42.8-82.8); PLATELET COUNT 224 10^3/uL (134-434); RBC 4.96 M/mm3 (3.60-5.2); RDW 15.3 % (11.6-15.6)
[2022-01-01 21:15] LABS: PH,URINE 6.5 (5.0-8.0); URINE APPEARANCE CLEAR; URINE BILIRUBIN NEGATIVE (NEGATIVE); URINE COLOR YELLOW; URINE GLUCOSE (UA) NEGATIVE (NEGATIVE); URINE KETONE NEGATIVE (NEGATIVE); URINE LEUK ESTERASE NEGATIVE (NEGATIVE); URINE NITRITE NEGATIVE (NEGATIVE); URINE PROTEIN NEGATIVE (NEGATIVE)
[2022-01-01 21:26] LABS: ACTIVATED PTT 35.8 SECONDS (25.2-36.5); INR 1.16 (0.83-1.09); PROTHROMBIN TIME (PATIENT) 13.4 SEC (9.7-13.0)
[2022-01-01 21:33] LABS: CHLORIDE 103 mmol/L (98-107); SODIUM 137 mmol/L (136-145)
[2022-01-01 21:35] LABS: ALBUMIN 3.4 g/dl (3.4-5.0); ANION GAP 7 MMOL/L (8-16); CALCIUM 8.7 mg/dL (8.5-10.1); CO2 27 mmol/L (21-32); GLUCOSE,RANDOM 218 mg/dL (74-106); MAGNESIUM 1.8 mg/dL (1.8-2.4)
[2022-01-01 21:38] LABS: CREATININE 0.7 mg/dL (0.55-1.3); SGPT/ALT 23 U/L (13-61)
[2022-01-01 21:39] LABS: SGOT/AST 32 U/L (15-37)
[2022-01-01 21:40] LABS: BILIRUBIN,TOTAL 0.8 mg/dL (0.2-1); TOT PROT 8.3 g/dl (6.4-8.2)
[2022-01-01 21:41] LABS: ALK PHOS 95 U/L (45-117)
[2022-01-01 21:43] LABS: N-TERMINAL BNP 156.5 pg/ml (5-450)
[2022-01-01] MEDS ORDERED: FUROSEMIDE 40 MG/4 ML INJECTABLE VIAL ONE (21:56)
[2022-01-01] MEDS ORDERED: ALBUTEROL SO4 HFA INHALER IH ONE ×2 (22:06→23:11)
[2022-01-01] MEDS ORDERED: AZITHROMYCIN IVPB 500 MG in DEXTROSE 5%-WATER - 250 ML IVPB ONE (22:07)
[2022-01-01] MEDS ORDERED: AZITHROMYCIN IVPB 500 MG/250 ML BAG IVPB ONE (23:11)
[2022-01-02] MEDS ORDERED: POLYETHYLENE GLYCOL (HEALTHYLAX) 3350 17 GM PACKET PO PRN (00:04)
[2022-01-02] MEDS ORDERED: ACETAMINOPHEN 325 MG TABLET (FP) PO PRN (00:04)
[2022-01-02] MEDS ORDERED: ALBUTEROL SO4 HFA INHALER IH PRN (02:48)
[2022-01-02] MEDS ORDERED: ACETAMINOPHEN 1000 MG/100 ML BAG IVPB PRN (02:53)
[2022-01-02] MEDS: INSULIN SLIDING SCALE (NOVOLOG) 1 VIAL SQ SCH ×4 (07:30→23:00)
[2022-01-02 07:50] LABS: EOS % 3.1 % (0-4.5); HEMATOCRIT 41.9 % (32.4-45.2); HEMOGLOBIN 13.5 GM/dL (10.7-15.3); LYMPH % 23.6 % (8-40); MCH 26.1 pg (25.7-33.7); MCHC 32.2 g/dl (32.0-36.0); MEAN PLT VOLUME 9.4 fl (7.5-11.1); MONO % 7.8 % (3.8-10.2); NEUT % 64.5 % (42.8-82.8); PLATELET COUNT 228 10^3/uL (134-434); RBC 5.18 M/mm3 (3.60-5.2); RDW 15.4 % (11.6-15.6); WHITE BLOOD COUNT 7.2 K/mm3 (4.0-10.0)
[2022-01-02 08:15] LABS: CHLORIDE 102 mmol/L (98-107); SODIUM 137 mmol/L (136-145)
[2022-01-02 08:18] LABS: GLUCOSE,RANDOM 119 mg/dL (74-106)
[2022-01-02 08:19] LABS: ANION GAP 7 MMOL/L (8-16); BLOOD UREA NITROGEN 10.9 mg/dL (7-18); CO2 29 mmol/L (21-32); MAGNESIUM 1.9 mg/dL (1.8-2.4)
[2022-01-02 08:22] LABS: CREATININE 0.8 mg/dL (0.55-1.3); PHOSPHOROUS 4.5 mg/dL (2.5-4.9)
[2022-01-02] MEDS: glipiZIDE-XL 10 MG TAB.ER.24 (FP) PO SCH (09:00)
[2022-01-02] MEDS: metFORMIN HCL 500 MG TABLET (FP) PO SCH ×2 (09:00→18:27)
[2022-01-02] MEDS: RAMIPRIL 2.5 MG CAPSULE PO SCH (09:00)
[2022-01-02] MEDS: CARVEDILOL 3.125 MG TABLET (FP) PO SCH ×2 (09:00→21:47)
[2022-01-02] MEDS: LEVOTHYROXINE NA 200 MCG TABLET PO SCH (09:00)
[2022-01-02] MEDS: MEMANTINE HCL 5 MG TABLET (UD) PO SCH ×2 (09:00→23:00)
[2022-01-02] MEDS ORDERED: CARVEDILOL 3.125 MG TABLET (FP) ONE ×2 (09:22→21:45)
[2022-01-02] MEDS ORDERED: metFORMIN HCL 500 MG TABLET (FP) ONE ×2 (09:22→18:13)
[2022-01-02] MEDS ORDERED: ENOXAPARIN NA (PORCINE) 40 MG/0.4 ML DISP.SYRIN SQ ONE (09:23)
[2022-01-02] MEDS ORDERED: FUROSEMIDE 20 MG TABLET (FP) ONE (09:23)
[2022-01-02] MEDS ORDERED: FUROSEMIDE 20 MG TABLET (FP) PO SCH (10:00)
[2022-01-02] MEDS: FLUTICASONE/UMECLIDIN/VILANTER(200-62.5-25 TRELEGY ELLIPTA) INAHLER IH SCH (10:22)
[2022-01-02] MEDS: ENOXAPARIN NA (PORCINE) 40 MG/0.4 ML DISP.SYRIN SQ SCH (10:22)
[2022-01-02] MEDS: FUROSEMIDE 40 MG/4 ML INJECTABLE VIAL IVPUSH SCH (12:34)
[2022-01-02] MEDS ORDERED: FUROSEMIDE 40 MG/4 ML INJECTABLE VIAL ONE (12:35)
[2022-01-02] MEDS ORDERED: AZITHROMYCIN IVPB 500 MG/250 ML BAG IVPB ONE (18:10)
[2022-01-02] MEDS: AZITHROMYCIN IVPB 500 MG in DEXTROSE 5%-WATER - 250 ML IVPB SCH (18:38)
[2022-01-02] MEDS ORDERED: ATORVASTATIN CA 40 MG TABLET (FP) ONE (21:45)
[2022-01-02] MEDS: ATORVASTATIN CA 40 MG TABLET (FP) PO SCH (21:47)
[2022-01-03] MEDS: INSULIN SLIDING SCALE (NOVOLOG) 1 VIAL SQ SCH ×4 (07:59→22:39)
[2022-01-03 08:01] LABS: BASO % 0.7 % (0-2.0); EOS % 2.1 % (0-4.5); HEMOGLOBIN 12.9 GM/dL (10.7-15.3); LYMPH % 22.7 % (8-40); MCH 26.1 pg (25.7-33.7); MCHC 32.2 g/dl (32.0-36.0); MEAN CELL VOLUME 80.9 fl (80-96); MEAN PLT VOLUME 8.9 fl (7.5-11.1); MONO % 8.1 % (3.8-10.2); NEUT % 66.4 % (42.8-82.8); PLATELET COUNT 234 10^3/uL (134-434); RBC 4.95 M/mm3 (3.60-5.2); RDW 15.1 % (11.6-15.6); WHITE BLOOD COUNT 9.9 K/mm3 (4.0-10.0)
[2022-01-03] MEDS ORDERED: glipiZIDE 5 MG TABLET (FP) ONE (08:04)
[2022-01-03] MEDS ORDERED: LEVOTHYROXINE NA 50 MCG TABLET (FP) ONE (08:04)
[2022-01-03] MEDS ORDERED: metFORMIN HCL 500 MG TABLET (FP) ONE (08:04)
[2022-01-03] MEDS: glipiZIDE-XL 10 MG TAB.ER.24 (FP) PO SCH (08:11)
[2022-01-03] MEDS: metFORMIN HCL 500 MG TABLET (FP) PO SCH ×2 (08:11→17:07)
[2022-01-03] MEDS: LEVOTHYROXINE NA 200 MCG TABLET PO SCH (08:11)
[2022-01-03 08:16] LABS: ALBUMIN 3.3 g/dl (3.4-5.0); BLOOD UREA NITROGEN 19.9 mg/dL (7-18); CALCIUM 8.7 mg/dL (8.5-10.1)
[2022-01-03 08:19] LABS: CREATININE 0.9 mg/dL (0.55-1.3)
[2022-01-03 08:20] LABS: TOT PROT 7.9 g/dl (6.4-8.2)
[2022-01-03 08:21] LABS: BILIRUBIN,TOTAL 1.1 mg/dL (0.2-1)
[2022-01-03] MEDS ORDERED: ENOXAPARIN NA (PORCINE) 40 MG/0.4 ML DISP.SYRIN SQ ONE (09:32)
[2022-01-03] MEDS ORDERED: AZITHROMYCIN IVPB 500 MG/250 ML BAG IVPB ONE (09:33)
[2022-01-03] MEDS: RAMIPRIL 2.5 MG CAPSULE PO SCH (10:07)
[2022-01-03] MEDS: FLUTICASONE/UMECLIDIN/VILANTER(200-62.5-25 TRELEGY ELLIPTA) INAHLER IH SCH (10:07)
[2022-01-03] MEDS: ENOXAPARIN NA (PORCINE) 40 MG/0.4 ML DISP.SYRIN SQ SCH (10:07)
[2022-01-03] MEDS: MEMANTINE HCL 5 MG TABLET (UD) PO SCH ×2 (10:07→22:35)
[2022-01-03] MEDS: FUROSEMIDE 40 MG/4 ML INJECTABLE VIAL IVPUSH SCH (10:07)
[2022-01-03] MEDS: CARVEDILOL 3.125 MG TABLET (FP) PO SCH ×2 (10:07→22:35)
[2022-01-03] MEDS: AZITHROMYCIN IVPB 500 MG in DEXTROSE 5%-WATER - 250 ML IVPB SCH (10:08)
[2022-01-03] MEDS: ATORVASTATIN CA 40 MG TABLET (FP) PO SCH (22:35)
[2022-01-04] MEDS: INSULIN SLIDING SCALE (NOVOLOG) 1 VIAL SQ SCH ×3 (06:12→17:48)
[2022-01-04] MEDS ORDERED: LEVOTHYROXINE NA 150 MCG TABLET PO SCH (07:00)
[2022-01-04] MEDS: metFORMIN HCL 500 MG TABLET (FP) PO SCH ×2 (08:03→17:48)
[2022-01-04] MEDS: glipiZIDE-XL 10 MG TAB.ER.24 (FP) PO SCH (08:03)
[2022-01-04 08:44] LABS: CALCIUM 9.3 mg/dL (8.5-10.1)
[2022-01-04 08:45] LABS: BLOOD UREA NITROGEN 17.2 mg/dL (7-18)
[2022-01-04 08:48] LABS: CREATININE 0.7 mg/dL (0.55-1.3)
[2022-01-04] MEDS: RAMIPRIL 2.5 MG CAPSULE PO SCH (09:45)
[2022-01-04] MEDS: FUROSEMIDE 40 MG/4 ML INJECTABLE VIAL IVPUSH SCH (09:45)
[2022-01-04] MEDS: CARVEDILOL 3.125 MG TABLET (FP) PO SCH (09:45)
[2022-01-04] MEDS: FLUTICASONE/UMECLIDIN/VILANTER(200-62.5-25 TRELEGY ELLIPTA) INAHLER IH SCH (09:45)
[2022-01-04] MEDS: ENOXAPARIN NA (PORCINE) 40 MG/0.4 ML DISP.SYRIN SQ SCH (09:45)
[2022-01-04] MEDS: MEMANTINE HCL 5 MG TABLET (UD) PO SCH (09:45)
[2022-01-04] MEDS: AZITHROMYCIN IVPB 500 MG in DEXTROSE 5%-WATER - 250 ML IVPB SCH (11:54)
[2022-01-04] MEDS ORDERED: AZITHROMYCIN 500 MG TABLET PO ONE (12:15)
[2022-01-04] MEDS ORDERED: AZITHROMYCIN 250 MG TABLET PO ONE (12:30)
[2022-01-04 14:52] VITALS: BP 106/51; PULSE 62; TEMP 97.4
== END 2022-01-04 19:26 | disposition home or self-care (01) ==
LOC: JER 18:38 → JERBED 22:07 → J4W 01-03 15:11
PROVIDERS: ADMIT Internal Medicine; ATTEND Internal Medicine
PROC: 3E033NZ Introduction of Analgesics, Hypnotics, Sedatives into Peripheral Vein, Percutaneous Approach (ICD-10-PCS; principal; 2022-01-01)
PROC: 3E03329 Introduction of Other Anti-infective into Peripheral Vein, Percutaneous Approach (ICD-10-PCS; 2022-01-01)
PROC: 3E023GC Introduction of Other Therapeutic Substance into Muscle, Percutaneous Approach (ICD-10-PCS; 2022-01-01)
PROC: 3E033GC Introduction of Other Therapeutic Substance into Peripheral Vein, Percutaneous Approach (ICD-10-PCS; 2022-01-01)
DX: J44.1 Chronic obstructive pulmonary disease with (acute) exacerbation (principal); J84.9 Interstitial pulmonary disease, unspecified; I11.0 Hypertensive heart disease with heart failure; J40 Bronchitis, not specified as acute or chronic; I50.30 Unspecified diastolic (congestive) heart failure; E11.40 Type 2 diabetes mellitus with diabetic neuropathy, unspecified; J44.9 Chronic obstructive pulmonary disease, unspecified; Z99.81 Dependence on supplemental oxygen; Z90.10 Acquired absence of unspecified breast and nipple; E03.9 Hypothyroidism, unspecified; Z85.3 Personal history of malignant neoplasm of breast; F03.90 Unspecified dementia, unspecified severity, without behavioral disturbance, psychotic disturbance, mood disturbance, and anxiety; R77.8 Other specified abnormalities of plasma proteins; Z29.8 Encounter for other specified prophylactic measures; R74.8 Abnormal levels of other serum enzymes; G47.30 Sleep apnea, unspecified; W18.39XA Other fall on same level, initial encounter; Y93.89 Activity, other specified; Y92.009 Unspecified place in unspecified non-institutional (private) residence as the place of occurrence of the external cause; R55 Syncope and collapse; F09 Unspecified mental disorder due to known physiological condition
CPT/HCPCS: 36415; 70450-TC; 71045-TC-FY; 72125-TC; 80048; 80053; 81003; 82962; 83735; 83880; 84100; 84132; 84439; 84443; 84484; 85025; 85610; 85730; 86850; 86900; 86901; 87086; 93005; 93010; 93306-TC; 93880-TC; 96365; 96372; 96375; 96376; 97116-GP; 97161-GP; 99285-25; C9803-CS; G0378; U0003; U0005

== ENCOUNTER 2022-05-10 06:36 | Inpatient (IN) | payer OTHER ==
[2022-05-10] MEDS ORDERED: ACETAMINOPHEN 325 MG TABLET (FP) PO ONE (07:10)
[2022-05-10] MEDS ORDERED: ACETAMINOPHEN 325 MG TABLET (FP) ONE (07:24)
[2022-05-10] MEDS ORDERED: KETOROLAC TROMETHAMINE 15 MG/ML VIAL IVPUSH ONE (07:33)
[2022-05-10] MEDS ORDERED: METOCLOPRAMIDE HCL INJECTION 10 MG/2 ML VIAL IVPUSH ONE (07:33)
[2022-05-10] MEDS ORDERED: SODIUM CHLORIDE 0.9% 500 ML INFUS.BAG IV ONE (07:33)
[2022-05-10] MEDS ORDERED: KETOROLAC TROMETHAMINE 15 MG/ML VIAL ONE (07:50)
[2022-05-10] MEDS ORDERED: METOCLOPRAMIDE HCL INJECTION 10 MG/2 ML VIAL ONE (07:50)
[2022-05-10 09:11] LABS: CHLORIDE 101 mmol/L (98-107); SODIUM 138 mmol/L (136-145)
[2022-05-10 09:13] LABS: CALCIUM 8.7 mg/dL (8.5-10.1)
[2022-05-10 09:14] LABS: ALBUMIN 3.1 g/dl (3.4-5.0); ANION GAP 6 MMOL/L (8-16); BLOOD UREA NITROGEN 19.1 mg/dL (7-18); CO2 31 mmol/L (21-32); GLUCOSE,RANDOM 71 mg/dL (74-106); MAGNESIUM 1.5 mg/dL (1.8-2.4)
[2022-05-10 09:17] LABS: CREATININE 0.9 mg/dL (0.55-1.3); SGOT/AST 50 U/L (15-37); SGPT/ALT 23 U/L (13-61)
[2022-05-10 09:19] LABS: BILIRUBIN,TOTAL 0.8 mg/dL (0.2-1); TOT PROT 7.7 g/dl (6.4-8.2)
[2022-05-10 09:20] LABS: ALK PHOS 83 U/L (45-117)
[2022-05-10] MEDS ORDERED: MAGNESIUM SULF 50% (8.12 MEQ/2 ML-1 GM VIAL) IVPB ONE (09:36)
[2022-05-10] MEDS ORDERED: DEXTROSE 50%-WATER - 25 GM/50 ML VIAL IVPUSH ONE (10:08)
[2022-05-10] MEDS ORDERED: DEXTROSE 50%-WATER 25 GM/50 ML DISP.SYRIN ONE (10:15)
[2022-05-10] MEDS ORDERED: MAGNESIUM SULFATE IN WATER 2 GM/50 ML IVPB IVPB ONE (10:15)
[2022-05-10 11:09] LABS: EPI CELLS >36 /uL (0-25.1); HYALINE CASTS 1 /uL (0-3.1); PH,URINE 5.5 (5.0-8.0); URINE APPEARANCE CLEAR; URINE BACTERIA 3171 /uL (0-1359); URINE BILIRUBIN NEGATIVE (NEGATIVE); URINE COLOR DK YELLOW; URINE GLUCOSE (UA) NEGATIVE (NEGATIVE); URINE KETONE TRACE (NEGATIVE); URINE LEUK ESTERASE TRACE (NEGATIVE); URINE NITRITE NEGATIVE (NEGATIVE); URINE PROTEIN TRACE (NEGATIVE); URINE UROBILINOGEN 0.2 mg/dL (0.2-1.0); URINE WBC 41 /uL (0-25.8)
[2022-05-10 11:15] LABS: BASO % 0.5 % (0-2.0); EOS % 0.1 % (0-4.5); HEMOGLOBIN 11.5 GM/dL (10.7-15.3); LYMPH % 17.3 % (8-40); MCH 25.4 pg (25.7-33.7); MEAN PLT VOLUME 8.9 fl (7.5-11.1); NEUT % 73.1 % (42.8-82.8); PLATELET COUNT 223 10^3/uL (134-434); RBC 4.55 M/mm3 (3.60-5.2); RDW 16.1 % (11.6-15.6); WHITE BLOOD COUNT 10.7 K/mm3 (4.0-10.0)
[2022-05-10] MEDS ORDERED: CEFTRIAXONE 1,000 MG in DEXTROSE 5%-WATER - 50 ML IVPB ONE (11:16)
[2022-05-10 11:41] LABS: URINE RBC 33.7 /uL (0-23.9)
[2022-05-10 12:34] LABS: BF GLUCOSE (CSF ONLY) 50 mg/dL (40-70)
[2022-05-10] MEDS ORDERED: cefTRIAXone SODIUM 1 GM VIAL ONE (12:49)
[2022-05-10 13:04] LABS: CSF APPEARANCE CLEAR (CLEAR); CSF COLOR COLORLESS (COLORLESS)
[2022-05-10 13:53] LABS: CSF WBC 128 mm3 (0-5)
[2022-05-10] MEDS ORDERED: AMPICILLIN - 2 GM in SODIUM CHLORIDE 100 ML IVPB ONE (13:59)
[2022-05-10] MEDS ORDERED: VANCOMYCIN 2,000 MG in DEXTROSE 5%-WATER - 250 ML IVPB ONE (14:00)
[2022-05-10] MEDS ORDERED: AMPICILLIN SODIUM 2 GM VIAL ONE (14:11)
[2022-05-10] MEDS: ACETAMINOPHEN 1000 MG/100 ML BAG IVPB PRN ×2 (15:31→21:55)
[2022-05-10] MEDS ORDERED: VANCOMYCIN/WATER 1250 MG 1,250 MG/250 ML BAG IVPB SCH (16:30)
[2022-05-10] MEDS: CEFTRIAXONE 2 GM in DEXTROSE 5%-WATER 100 ML IVPB SCH (17:07)
[2022-05-10] MEDS: SODIUM CHLORIDE 0.45% 1,000 ML IV SCH (17:08)
[2022-05-10] MEDS: AMPICILLIN - 2 GM in SODIUM CHLORIDE 100 ML IVPB SCH ×2 (17:37→21:35)
[2022-05-10] MEDS: ACYCLOVIR INJECTION 680 MG in DEXTROSE 5%-WATER - 100 ML IVPB SCH (20:24)
[2022-05-10] MEDS ORDERED: traMADol HCL 50 MG TABLET PO ONE (22:33)
[2022-05-11] MEDS: AMPICILLIN - 2 GM in SODIUM CHLORIDE 100 ML IVPB SCH ×6 (00:05→20:42)
[2022-05-11] MEDS: ACYCLOVIR INJECTION 680 MG in DEXTROSE 5%-WATER - 100 ML IVPB SCH ×3 (01:35→17:01)
[2022-05-11] MEDS: CEFTRIAXONE 2 GM in DEXTROSE 5%-WATER 100 ML IVPB SCH ×2 (04:39→16:00)
[2022-05-11] MEDS: ACETAMINOPHEN 1000 MG/100 ML BAG IVPB PRN ×2 (05:35→17:50)
[2022-05-11 09:23] LABS: BASO % 0.6 % (0-2.0); EOS % 2.3 % (0-4.5); HEMATOCRIT 37.4 % (32.4-45.2); HEMOGLOBIN 11.8 GM/dL (10.7-15.3); LYMPH % 17.1 % (8-40); MCH 24.5 pg (25.7-33.7); MCHC 31.6 g/dl (32.0-36.0); MEAN CELL VOLUME 77.4 fl (80-96); MONO % 8.7 % (3.8-10.2); NEUT % 71.3 % (42.8-82.8); PLATELET COUNT 221 10^3/uL (134-434); RBC 4.84 M/mm3 (3.60-5.2); RDW 15.8 % (11.6-15.6); WHITE BLOOD COUNT 7.5 K/mm3 (4.0-10.0)
[2022-05-11 10:53] LABS: ALBUMIN 2.9 g/dl (3.4-5.0); BILIRUBIN,TOTAL 0.9 mg/dL (0.2-1); BLOOD UREA NITROGEN 12.3 mg/dL (7-18); CALCIUM 8.1 mg/dL (8.5-10.1); CREATININE 0.7 mg/dL (0.55-1.3)
[2022-05-11 10:56] LABS: ANISOCYTOSIS 1+; MACROCYTOSIS 0
[2022-05-11] MEDS ORDERED: GABAPENTIN 300 MG CAPSULE PO ONE (15:45)
[2022-05-11] MEDS: SODIUM CHLORIDE 0.45% 1,000 ML IV SCH (16:00)
[2022-05-11] MEDS: GABAPENTIN 100 MG CAPSULE PO SCH (22:20)
[2022-05-11] MEDS: LIDOCAINE HCL 5% TOP OINTMENT 50 GM TUBE TP SCH (22:20)
[2022-05-11] MEDS: MELATONIN 5 MG TABLETS PO SCH (22:21)
[2022-05-11] MEDS: CARVEDILOL 3.125 MG TABLET (FP) PO SCH (22:22)
[2022-05-11] MEDS: BUDESONIDE/FORMETEROL FUMARATE 160/4.5 mcg INHALER IH SCH (22:22)
[2022-05-12] MEDS: AMPICILLIN - 2 GM in SODIUM CHLORIDE 100 ML IVPB SCH ×4 (00:14→13:27)
[2022-05-12] MEDS: ACYCLOVIR INJECTION 680 MG in DEXTROSE 5%-WATER - 100 ML IVPB SCH ×3 (02:31→18:39)
[2022-05-12] MEDS: CEFTRIAXONE 2 GM in DEXTROSE 5%-WATER 100 ML IVPB SCH (05:16)
[2022-05-12] MEDS: LEVOTHYROXINE 100 MCG, LEVOTHYROXINE 75 MCG PO SCH (07:11)
[2022-05-12] MEDS: ACETAMINOPHEN 1000 MG/100 ML BAG IVPB PRN (07:11)
[2022-05-12] MEDS: GABAPENTIN 100 MG CAPSULE PO SCH ×3 (07:12→21:58)
[2022-05-12] MEDS: INSULIN (NOVOLOG) ASPART 100 UNITS/ML 10ML VIAL SQ SCH ×2 (07:24→17:33)
[2022-05-12] MEDS: ASPIRIN COATED 81 MG TABLET.EC PO SCH (09:25)
[2022-05-12] MEDS: CARVEDILOL 3.125 MG TABLET (FP) PO SCH ×2 (09:26→21:58)
[2022-05-12] MEDS: PANTOPRAZOLE 40 MG TABLET PO SCH (09:26)
[2022-05-12] MEDS: LIDOCAINE HCL 5% TOP OINTMENT 50 GM TUBE TP SCH (09:30)
[2022-05-12] MEDS: BUDESONIDE/FORMETEROL FUMARATE 160/4.5 mcg INHALER IH SCH ×2 (09:30→21:59)
[2022-05-12] MEDS: ENOXAPARIN NA (PORCINE) 40 MG/0.4 ML DISP.SYRIN SQ SCH (09:31)
[2022-05-12] MEDS ORDERED: PATIENT'S OWN MEDICATION (NON-FORMULARY) (Levothyroxine Sodium [Levothyroxine] 175 MCG Cap PO SCH (10:00)
[2022-05-12 14:24] VITALS: BMI 29.2
[2022-05-12 16:38] LABS: BASO % 0.8 % (0-2.0); EOS % 5.7 % (0-4.5); HEMATOCRIT 38.8 % (32.4-45.2); HEMOGLOBIN 12.4 GM/dL (10.7-15.3); LYMPH % 28.4 % (8-40); MCH 24.6 pg (25.7-33.7); MCHC 32.1 g/dl (32.0-36.0); MEAN CELL VOLUME 76.8 fl (80-96); MEAN PLT VOLUME 8.7 fl (7.5-11.1); MONO % 10.2 % (3.8-10.2); NEUT % 54.9 % (42.8-82.8); PLATELET COUNT 220 10^3/uL (134-434); RBC 5.05 M/mm3 (3.60-5.2); RDW 15.5 % (11.6-15.6); WHITE BLOOD COUNT 6.3 K/mm3 (4.0-10.0)
[2022-05-12 16:44] LABS: CALCIUM 8.8 mg/dL (8.5-10.1)
[2022-05-12 16:45] LABS: BLOOD UREA NITROGEN 10.7 mg/dL (7-18)
[2022-05-12 16:48] LABS: CREATININE 0.8 mg/dL (0.55-1.3)
[2022-05-12] MEDS: SODIUM CHLORIDE 0.45% 1,000 ML IV SCH (18:39)
[2022-05-12] MEDS: MELATONIN 5 MG TABLETS PO SCH (21:58)
[2022-05-13] MEDS: ACYCLOVIR INJECTION 680 MG in DEXTROSE 5%-WATER - 100 ML IVPB SCH ×3 (02:49→17:43)
[2022-05-13] MEDS: LEVOTHYROXINE 100 MCG, LEVOTHYROXINE 75 MCG PO SCH (06:42)
[2022-05-13] MEDS: GABAPENTIN 100 MG CAPSULE PO SCH ×3 (06:42→23:43)
[2022-05-13] MEDS: INSULIN (NOVOLOG) ASPART 100 UNITS/ML 10ML VIAL SQ SCH ×2 (06:43→16:15)
[2022-05-13] MEDS: ENOXAPARIN NA (PORCINE) 40 MG/0.4 ML DISP.SYRIN SQ SCH (10:22)
[2022-05-13] MEDS: ACETAMINOPHEN 325 MG TABLET (FP) PO PRN ×2 (10:22→23:45)
[2022-05-13] MEDS: CARVEDILOL 3.125 MG TABLET (FP) PO SCH ×2 (10:23→23:45)
[2022-05-13] MEDS: PANTOPRAZOLE 40 MG TABLET PO SCH (10:23)
[2022-05-13] MEDS: ASPIRIN COATED 81 MG TABLET.EC PO SCH (10:23)
[2022-05-13] MEDS: BUDESONIDE/FORMETEROL FUMARATE 160/4.5 mcg INHALER IH SCH ×2 (10:33→23:47)
[2022-05-13] MEDS: LIDOCAINE HCL 5% TOP OINTMENT 50 GM TUBE TP SCH (10:34)
[2022-05-13 13:56] LABS: BASO % 0.6 % (0-2.0); EOS % 3.6 % (0-4.5); HEMATOCRIT 38.4 % (32.4-45.2); HEMOGLOBIN 12.3 GM/dL (10.7-15.3); LYMPH % 17.7 % (8-40); MCH 24.9 pg (25.7-33.7); MCHC 32.2 g/dl (32.0-36.0); MEAN CELL VOLUME 77.5 fl (80-96); MEAN PLT VOLUME 8.8 fl (7.5-11.1); MONO % 5.3 % (3.8-10.2); NEUT % 72.8 % (42.8-82.8); PLATELET COUNT 266 10^3/uL (134-434); RBC 4.95 M/mm3 (3.60-5.2); RDW 15.9 % (11.6-15.6); WHITE BLOOD COUNT 9.5 K/mm3 (4.0-10.0)
[2022-05-13 14:07] LABS: CALCIUM 8.6 mg/dL (8.5-10.1)
[2022-05-13 14:09] LABS: ALBUMIN 2.9 g/dl (3.4-5.0); BLOOD UREA NITROGEN 11.6 mg/dL (7-18)
[2022-05-13 14:11] LABS: CREATININE 0.7 mg/dL (0.55-1.3)
[2022-05-13 14:14] LABS: BILIRUBIN,TOTAL 0.6 mg/dL (0.2-1)
[2022-05-13] MEDS: SODIUM CHLORIDE 0.45% 1,000 ML IV SCH (17:43)
[2022-05-13] MEDS: MELATONIN 5 MG TABLETS PO SCH (23:43)
[2022-05-14] MEDS: ACYCLOVIR INJECTION 680 MG in DEXTROSE 5%-WATER - 100 ML IVPB SCH ×3 (01:47→17:31)
[2022-05-14] MEDS: GABAPENTIN 100 MG CAPSULE PO SCH ×3 (06:04→22:28)
[2022-05-14] MEDS: LEVOTHYROXINE 100 MCG, LEVOTHYROXINE 75 MCG PO SCH (06:04)
[2022-05-14] MEDS: INSULIN (NOVOLOG) ASPART 100 UNITS/ML 10ML VIAL SQ SCH ×2 (06:05→16:40)
[2022-05-14] MEDS: ACETAMINOPHEN 325 MG TABLET (FP) PO PRN ×2 (06:05→11:05)
[2022-05-14 09:23] LABS: BASO % 1.1 % (0-2.0); EOS % 4.5 % (0-4.5); HEMATOCRIT 36.4 % (32.4-45.2); HEMOGLOBIN 11.6 GM/dL (10.7-15.3); LYMPH % 19.7 % (8-40); MCH 24.6 pg (25.7-33.7); MCHC 31.8 g/dl (32.0-36.0); MEAN CELL VOLUME 77.4 fl (80-96); MONO % 7.3 % (3.8-10.2); NEUT % 67.4 % (42.8-82.8); PLATELET COUNT 249 10^3/uL (134-434); WHITE BLOOD COUNT 6.3 K/mm3 (4.0-10.0)
[2022-05-14 09:26] LABS: ALBUMIN 2.8 g/dl (3.4-5.0); CALCIUM 8.8 mg/dL (8.5-10.1)
[2022-05-14 09:27] LABS: BLOOD UREA NITROGEN 9.3 mg/dL (7-18)
[2022-05-14 09:30] LABS: CREATININE 0.7 mg/dL (0.55-1.3)
[2022-05-14 09:31] LABS: BILIRUBIN,TOTAL 0.6 mg/dL (0.2-1); TOT PROT 6.8 g/dl (6.4-8.2)
[2022-05-14 10:28] LABS: ERYTHROCYTE SEDIMENTATION RATE 26 mm/hr (0-30)
[2022-05-14] MEDS: CARVEDILOL 3.125 MG TABLET (FP) PO SCH ×2 (10:52→22:29)
[2022-05-14] MEDS: ENOXAPARIN NA (PORCINE) 40 MG/0.4 ML DISP.SYRIN SQ SCH (10:52)
[2022-05-14] MEDS: BUDESONIDE/FORMETEROL FUMARATE 160/4.5 mcg INHALER IH SCH ×2 (10:52→22:29)
[2022-05-14] MEDS: PANTOPRAZOLE 40 MG TABLET PO SCH (10:52)
[2022-05-14] MEDS: ASPIRIN COATED 81 MG TABLET.EC PO SCH (10:52)
[2022-05-14] MEDS: LIDOCAINE HCL 5% TOP OINTMENT 50 GM TUBE TP SCH (10:53)
[2022-05-14] MEDS: SODIUM CHLORIDE 0.45% 1,000 ML IV SCH ×2 (12:26→16:40)
[2022-05-14] MEDS: MELATONIN 5 MG TABLETS PO SCH (22:28)
[2022-05-15] MEDS: ACYCLOVIR INJECTION 680 MG in DEXTROSE 5%-WATER - 100 ML IVPB SCH ×3 (01:32→17:10)
[2022-05-15] MEDS: ACETAMINOPHEN 325 MG TABLET (FP) PO PRN (02:18)
[2022-05-15] MEDS: SODIUM CHLORIDE 0.45% 1,000 ML IV SCH ×2 (02:19→17:10)
[2022-05-15] MEDS: LEVOTHYROXINE 100 MCG, LEVOTHYROXINE 75 MCG PO SCH (06:29)
[2022-05-15] MEDS: GABAPENTIN 100 MG CAPSULE PO SCH ×3 (06:29→21:57)
[2022-05-15] MEDS: INSULIN (NOVOLOG) ASPART 100 UNITS/ML 10ML VIAL SQ SCH ×2 (06:29→17:15)
[2022-05-15] MEDS: ENOXAPARIN NA (PORCINE) 40 MG/0.4 ML DISP.SYRIN SQ SCH (09:49)
[2022-05-15] MEDS: ASPIRIN COATED 81 MG TABLET.EC PO SCH (09:50)
[2022-05-15] MEDS: PANTOPRAZOLE 40 MG TABLET PO SCH (09:50)
[2022-05-15] MEDS: CARVEDILOL 3.125 MG TABLET (FP) PO SCH ×2 (09:51→23:30)
[2022-05-15] MEDS: BUDESONIDE/FORMETEROL FUMARATE 160/4.5 mcg INHALER IH SCH ×2 (09:52→21:58)
[2022-05-15] MEDS: LIDOCAINE HCL 5% TOP OINTMENT 50 GM TUBE TP SCH (09:53)
[2022-05-15 10:04] LABS: CALCIUM 8.7 mg/dL (8.5-10.1)
[2022-05-15 10:05] LABS: BLOOD UREA NITROGEN 7.9 mg/dL (7-18)
[2022-05-15 10:08] LABS: CREATININE 0.6 mg/dL (0.55-1.3)
[2022-05-15 16:07] LABS: WEST NILE VIRUS AB SERUM,IGM Negative (Negative)
[2022-05-15] MEDS: MELATONIN 5 MG TABLETS PO SCH (21:57)
[2022-05-15] MEDS ORDERED: guaiFENesin 200 MG/10 ML 10 ML UNIT-DOSE CUPS PO ONE (22:54)
[2022-05-16] MEDS: ACETAMINOPHEN 325 MG TABLET (FP) PO PRN (01:35)
[2022-05-16] MEDS: ACYCLOVIR INJECTION 680 MG in DEXTROSE 5%-WATER - 100 ML IVPB SCH ×3 (01:59→17:08)
[2022-05-16] MEDS: LEVOTHYROXINE 100 MCG, LEVOTHYROXINE 75 MCG PO SCH (07:19)
[2022-05-16] MEDS: GABAPENTIN 100 MG CAPSULE PO SCH ×3 (07:19→21:49)
[2022-05-16] MEDS: INSULIN (NOVOLOG) ASPART 100 UNITS/ML 10ML VIAL SQ SCH ×2 (07:20→17:10)
[2022-05-16] MEDS: ASPIRIN COATED 81 MG TABLET.EC PO SCH (10:08)
[2022-05-16] MEDS: ENOXAPARIN NA (PORCINE) 40 MG/0.4 ML DISP.SYRIN SQ SCH (10:08)
[2022-05-16] MEDS: CARVEDILOL 3.125 MG TABLET (FP) PO SCH ×2 (10:08→21:49)
[2022-05-16] MEDS: PANTOPRAZOLE 40 MG TABLET PO SCH (10:08)
[2022-05-16] MEDS: SODIUM CHLORIDE 0.45% 1,000 ML IV SCH ×2 (10:10→17:10)
[2022-05-16] MEDS: BUDESONIDE/FORMETEROL FUMARATE 160/4.5 mcg INHALER IH SCH ×2 (10:18→21:51)
[2022-05-16 12:36] LABS: CALCIUM 8.8 mg/dL (8.5-10.1)
[2022-05-16 12:37] LABS: BLOOD UREA NITROGEN 8.3 mg/dL (7-18)
[2022-05-16 12:40] LABS: CREATININE 0.6 mg/dL (0.55-1.3)
[2022-05-16] MEDS: LIDOCAINE HCL 5% TOP OINTMENT 50 GM TUBE TP SCH (14:26)
[2022-05-16] MEDS: MELATONIN 5 MG TABLETS PO SCH (21:49)
[2022-05-17] MEDS: ACYCLOVIR INJECTION 680 MG in DEXTROSE 5%-WATER - 100 ML IVPB SCH ×3 (02:58→17:42)
[2022-05-17] MEDS: GABAPENTIN 100 MG CAPSULE PO SCH ×3 (05:34→22:28)
[2022-05-17] MEDS: LEVOTHYROXINE 100 MCG, LEVOTHYROXINE 75 MCG PO SCH (06:39)
[2022-05-17] MEDS: INSULIN (NOVOLOG) ASPART 100 UNITS/ML 10ML VIAL SQ SCH ×2 (06:40→17:45)
[2022-05-17] MEDS: SODIUM CHLORIDE 0.45% 1,000 ML IV SCH (07:42)
[2022-05-17] MEDS: ACETAMINOPHEN 325 MG TABLET (FP) PO PRN (08:51)
[2022-05-17] MEDS: ASPIRIN COATED 81 MG TABLET.EC PO SCH (10:29)
[2022-05-17] MEDS: ENOXAPARIN NA (PORCINE) 40 MG/0.4 ML DISP.SYRIN SQ SCH (10:29)
[2022-05-17] MEDS: PANTOPRAZOLE 40 MG TABLET PO SCH (10:29)
[2022-05-17] MEDS: CARVEDILOL 3.125 MG TABLET (FP) PO SCH ×3 (10:29→22:28)
[2022-05-17] MEDS: BUDESONIDE/FORMETEROL FUMARATE 160/4.5 mcg INHALER IH SCH ×2 (10:30→22:30)
[2022-05-17] MEDS: LIDOCAINE HCL 5% TOP OINTMENT 50 GM TUBE TP SCH (10:30)
[2022-05-17] MEDS: INSULIN SLIDING SCALE (NOVOLOG) 1 VIAL SQ SCH (17:46)
[2022-05-17] MEDS: MELATONIN 5 MG TABLETS PO SCH (22:28)
[2022-05-18] MEDS: ACYCLOVIR INJECTION 680 MG in DEXTROSE 5%-WATER - 100 ML IVPB SCH ×3 (01:38→18:35)
[2022-05-18] MEDS: GABAPENTIN 100 MG CAPSULE PO SCH ×3 (05:41→21:51)
[2022-05-18] MEDS: INSULIN SLIDING SCALE (NOVOLOG) 1 VIAL SQ SCH ×2 (06:32→17:07)
[2022-05-18] MEDS: LEVOTHYROXINE 100 MCG, LEVOTHYROXINE 75 MCG PO SCH (06:33)
[2022-05-18 09:27] LABS: BASO % 0.7 % (0-2.0); EOS % 1.2 % (0-4.5); HEMATOCRIT 34.8 % (32.4-45.2); HEMOGLOBIN 10.9 GM/dL (10.7-15.3); LYMPH % 15.9 % (8-40); MCH 24.5 pg (25.7-33.7); MCHC 31.2 g/dl (32.0-36.0); MEAN CELL VOLUME 78.6 fl (80-96); MEAN PLT VOLUME 8.8 fl (7.5-11.1); MONO % 4.2 % (3.8-10.2); PLATELET COUNT 247 10^3/uL (134-434); RBC 4.43 M/mm3 (3.60-5.2); RDW 15.5 % (11.6-15.6); WHITE BLOOD COUNT 7.5 K/mm3 (4.0-10.0)
[2022-05-18 09:56] LABS: ALBUMIN 2.9 g/dl (3.4-5.0); CALCIUM 8.6 mg/dL (8.5-10.1)
[2022-05-18] MEDS: ASPIRIN COATED 81 MG TABLET.EC PO SCH (09:56)
[2022-05-18] MEDS: ENOXAPARIN NA (PORCINE) 40 MG/0.4 ML DISP.SYRIN SQ SCH (09:56)
[2022-05-18] MEDS: CARVEDILOL 3.125 MG TABLET (FP) PO SCH ×2 (09:56→21:53)
[2022-05-18] MEDS: PANTOPRAZOLE 40 MG TABLET PO SCH (09:56)
[2022-05-18 09:57] LABS: BLOOD UREA NITROGEN 7.9 mg/dL (7-18)
[2022-05-18 09:58] LABS: BILIRUBIN,TOTAL 0.6 mg/dL (0.2-1)
[2022-05-18 09:59] LABS: CREATININE 0.6 mg/dL (0.55-1.3)
[2022-05-18 10:01] LABS: TOT PROT 7.1 g/dl (6.4-8.2)
[2022-05-18] MEDS: BUDESONIDE/FORMETEROL FUMARATE 160/4.5 mcg INHALER IH SCH ×2 (10:20→21:52)
[2022-05-18] MEDS: LIDOCAINE HCL 5% TOP OINTMENT 50 GM TUBE TP SCH (10:21)
[2022-05-18] MEDS: SODIUM CHLORIDE 0.45% 1,000 ML IV SCH (17:07)
[2022-05-18] MEDS: MELATONIN 5 MG TABLETS PO SCH (21:52)
[2022-05-18] MEDS: ACETAMINOPHEN 325 MG TABLET (FP) PO PRN (22:02)
[2022-05-19] MEDS: ACYCLOVIR INJECTION 680 MG in DEXTROSE 5%-WATER - 100 ML IVPB SCH ×3 (01:03→17:41)
[2022-05-19] MEDS: GABAPENTIN 100 MG CAPSULE PO SCH ×3 (06:15→22:59)
[2022-05-19] MEDS: ACETAMINOPHEN 325 MG TABLET (FP) PO PRN (06:15)
[2022-05-19] MEDS: LEVOTHYROXINE 100 MCG, LEVOTHYROXINE 75 MCG PO SCH (06:15)
[2022-05-19] MEDS: INSULIN SLIDING SCALE (NOVOLOG) 1 VIAL SQ SCH ×2 (06:16→16:33)
[2022-05-19] MEDS: CARVEDILOL 3.125 MG TABLET (FP) PO SCH ×2 (10:08→22:59)
[2022-05-19] MEDS: ASPIRIN COATED 81 MG TABLET.EC PO SCH (10:09)
[2022-05-19] MEDS: BUDESONIDE/FORMETEROL FUMARATE 160/4.5 mcg INHALER IH SCH ×2 (10:09→23:00)
[2022-05-19] MEDS: PANTOPRAZOLE 40 MG TABLET PO SCH (10:09)
[2022-05-19] MEDS: LIDOCAINE HCL 5% TOP OINTMENT 50 GM TUBE TP SCH (10:12)
[2022-05-19] MEDS: SODIUM CHLORIDE 0.45% 1,000 ML IV SCH ×2 (14:22→16:28)
[2022-05-19] MEDS: MELATONIN 5 MG TABLETS PO SCH (22:59)
[2022-05-20] MEDS: ACYCLOVIR INJECTION 680 MG in DEXTROSE 5%-WATER - 100 ML IVPB SCH ×3 (01:47→17:54)
[2022-05-20] MEDS: ACETAMINOPHEN 325 MG TABLET (FP) PO PRN ×3 (03:43→22:17)
[2022-05-20] MEDS: SODIUM CHLORIDE 0.45% 1,000 ML IV SCH ×2 (03:56→17:54)
[2022-05-20] MEDS: GABAPENTIN 100 MG CAPSULE PO SCH ×3 (06:03→22:05)
[2022-05-20] MEDS: LEVOTHYROXINE 100 MCG, LEVOTHYROXINE 75 MCG PO SCH (06:03)
[2022-05-20] MEDS: INSULIN SLIDING SCALE (NOVOLOG) 1 VIAL SQ SCH ×2 (06:03→17:03)
[2022-05-20] MEDS: CARVEDILOL 3.125 MG TABLET (FP) PO SCH ×3 (09:56→22:10)
[2022-05-20] MEDS: PANTOPRAZOLE 40 MG TABLET PO SCH (09:56)
[2022-05-20] MEDS: ASPIRIN COATED 81 MG TABLET.EC PO SCH (09:57)
[2022-05-20] MEDS: BUDESONIDE/FORMETEROL FUMARATE 160/4.5 mcg INHALER IH SCH ×2 (09:59→22:13)
[2022-05-20] MEDS: LIDOCAINE HCL 5% TOP OINTMENT 50 GM TUBE TP SCH (10:00)
[2022-05-20] MEDS: ACETAMINOPHEN 1000 MG/100 ML BAG IVPB PRN (10:53)
[2022-05-20] MEDS: MELATONIN 5 MG TABLETS PO SCH (22:06)
[2022-05-21] MEDS: SODIUM CHLORIDE 0.45% 1,000 ML IV SCH (01:19)
[2022-05-21] MEDS: ACYCLOVIR INJECTION 680 MG in DEXTROSE 5%-WATER - 100 ML IVPB SCH (01:19)
[2022-05-21] MEDS: GABAPENTIN 100 MG CAPSULE PO SCH ×3 (06:28→21:54)
[2022-05-21] MEDS: INSULIN SLIDING SCALE (NOVOLOG) 1 VIAL SQ SCH ×2 (06:40→16:32)
[2022-05-21] MEDS: LEVOTHYROXINE 100 MCG, LEVOTHYROXINE 75 MCG PO SCH (07:10)
[2022-05-21] MEDS: ACETAMINOPHEN 325 MG TABLET (FP) PO PRN ×2 (07:10→19:02)
[2022-05-21] MEDS: PANTOPRAZOLE 40 MG TABLET PO SCH (10:33)
[2022-05-21] MEDS: CARVEDILOL 3.125 MG TABLET (FP) PO SCH ×2 (10:33→21:54)
[2022-05-21] MEDS: ASPIRIN COATED 81 MG TABLET.EC PO SCH (10:33)
[2022-05-21] MEDS: LIDOCAINE HCL 5% TOP OINTMENT 50 GM TUBE TP SCH (10:33)
[2022-05-21] MEDS: BUDESONIDE/FORMETEROL FUMARATE 160/4.5 mcg INHALER IH SCH ×2 (10:33→21:59)
[2022-05-21] MEDS: MELATONIN 5 MG TABLETS PO SCH (21:54)
[2022-05-22] MEDS: GABAPENTIN 100 MG CAPSULE PO SCH (06:36)
[2022-05-22] MEDS: ACETAMINOPHEN 325 MG TABLET (FP) PO PRN ×2 (06:36→11:30)
[2022-05-22] MEDS: LEVOTHYROXINE 100 MCG, LEVOTHYROXINE 75 MCG PO SCH (06:36)
[2022-05-22] MEDS: INSULIN SLIDING SCALE (NOVOLOG) 1 VIAL SQ SCH (06:37)
[2022-05-22 06:50] VITALS: RESP 20; TEMP 98.5
[2022-05-22] MEDS: PANTOPRAZOLE 40 MG TABLET PO SCH (09:28)
[2022-05-22] MEDS: ASPIRIN COATED 81 MG TABLET.EC PO SCH (09:28)
[2022-05-22] MEDS: CARVEDILOL 3.125 MG TABLET (FP) PO SCH (09:28)
[2022-05-22] MEDS: BUDESONIDE/FORMETEROL FUMARATE 160/4.5 mcg INHALER IH SCH (09:30)
[2022-05-22 09:41] VITALS: BP 108/38; PULSE 60
[2022-05-22] MEDS: LIDOCAINE HCL 5% TOP OINTMENT 50 GM TUBE TP SCH (10:40)
== END 2022-05-22 14:01 | disposition home health service (06) | DRG 75 ==
LOC: JER 06:36 → JERBED 11:37 → J7W 14:57
PROVIDERS: ADMIT Internal Medicine; ATTEND Internal Medicine
PROC: 009U3ZZ Drainage of Spinal Canal, Percutaneous Approach (ICD-10-PCS; principal; 2022-05-10)
DX: B02.1 Zoster meningitis (principal); I24.8 Other forms of acute ischemic heart disease; I50.32 Chronic diastolic (congestive) heart failure; N39.0 Urinary tract infection, site not specified; E78.5 Hyperlipidemia, unspecified; R50.9 Fever, unspecified; E03.9 Hypothyroidism, unspecified; F03.90 Unspecified dementia, unspecified severity, without behavioral disturbance, psychotic disturbance, mood disturbance, and anxiety; J44.9 Chronic obstructive pulmonary disease, unspecified; G47.33 Obstructive sleep apnea (adult) (pediatric); I11.0 Hypertensive heart disease with heart failure; I25.10 Atherosclerotic heart disease of native coronary artery without angina pectoris; E66.9 Obesity, unspecified; Z68.29 Body mass index [BMI] 29.0-29.9, adult; F09 Unspecified mental disorder due to known physiological condition; E11.42 Type 2 diabetes mellitus with diabetic polyneuropathy; R42 Dizziness and giddiness; Z99.81 Dependence on supplemental oxygen; Z85.3 Personal history of malignant neoplasm of breast
CPT/HCPCS: 0241U-QW; 36415; 70450-TC; 71045-TC-FY; 80048; 80053; 81003; 82945; 82962; 83605; 83735; 84157; 84484; 85025; 85651; 86592; 86618; 86694; 86735; 86765; 86777; 86780; 86787; 86788; 86789; 87040; 87070; 87086; 87205; 87529; 87798; 87899; 93005; 93010; 94761; 97116-GP; 97161-GP; 99285-25

== ENCOUNTER 2023-03-11 14:42 | Inpatient (IN) | payer OTHER ==
[2023-03-11 16:15] LABS: BASO % 0.3 % (0-2.0); HEMATOCRIT 37.1 % (32.4-45.2); HEMOGLOBIN 11.6 GM/dL (10.7-15.3); LYMPH % 19.7 % (8-40); MCH 22.4 pg (25.7-33.7); MCHC 31.2 g/dl (32.0-36.0); MEAN CELL VOLUME 71.7 fl (80-96); MEAN PLT VOLUME 8.5 fl (7.5-11.1); MONO % 7.8 % (3.8-10.2); NEUT % 70.2 % (42.8-82.8); PLATELET COUNT 241 10^3/uL (134-434); RBC 5.17 M/mm3 (3.60-5.2); RDW 19.4 % (11.6-15.6)
[2023-03-11 16:19] LABS: EPI CELLS 18 /uL (0-25.1); HYALINE CASTS 0 /uL (0-3.1); URINE APPEARANCE CLEAR; URINE BACTERIA 365 /uL (0-1359); URINE BILIRUBIN NEGATIVE (NEGATIVE); URINE COLOR YELLOW; URINE GLUCOSE (UA) NEGATIVE (NEGATIVE); URINE KETONE NEGATIVE (NEGATIVE); URINE LEUK ESTERASE 1+ (NEGATIVE); URINE NITRITE NEGATIVE (NEGATIVE); URINE PROTEIN NEGATIVE (NEGATIVE); URINE RBC 13 /uL (0-23.9); URINE WBC 31 /uL (0-25.8)
[2023-03-11 16:23] LABS: INR 1.15 (0.83-1.09); PROTHROMBIN TIME (PATIENT) 13.3 SEC (9.7-13.0)
[2023-03-11 16:27] LABS: VENOUS BASE EXCESS 3.3 mmol/L (-2-2); VENOUS O2 SATURATION 83.6 % (70-80); VENOUS PCO2 55.4 mmHg (38-52); VENOUS PH 7.352 (7.310-7.410)
[2023-03-11 16:44] LABS: POTASSIUM 4.2 mmol/L (3.5-5.1)
[2023-03-11 16:48] LABS: ALBUMIN 2.8 g/dl (3.4-5.0); BLOOD UREA NITROGEN 12.9 mg/dL (7-18)
[2023-03-11 16:51] LABS: CREATININE 0.7 mg/dL (0.55-1.3)
[2023-03-11 16:52] LABS: BILIRUBIN,TOTAL 0.9 mg/dL (0.2-1); TOT PROT 6.8 g/dl (6.4-8.2)
[2023-03-11 16:55] LABS: N-TERMINAL BNP 2034.7 pg/ml (5-450)
[2023-03-11] MEDS ORDERED: ASPIRIN 81 MG CHEWABLE TABLETS ONE (17:01)
[2023-03-11] MEDS ORDERED: FUROSEMIDE 40 MG/4 ML INJECTABLE VIAL IVPUSH ONE (18:41)
[2023-03-11] MEDS ORDERED: FUROSEMIDE 40 MG/4 ML INJECTABLE VIAL ONE (19:12)
[2023-03-11] MEDS ORDERED: DOCUSATE SODIUM 100 MG CAPSULE (FP) PO PRN (20:12)
[2023-03-11] MEDS ORDERED: ALBUTEROL SO4 2.5/IPRATROPIUM 0.5 INH SOL 3 ML VIAL.NEB. NEB ONE ×2 (21:29→21:32)
[2023-03-11] MEDS ORDERED: MONTELUKAST NA 10 MG TABLET ONE (21:52)
[2023-03-11] MEDS ORDERED: CARVEDILOL 3.125 MG TABLET (FP) ONE (21:52)
[2023-03-11] MEDS: CARVEDILOL 3.125 MG TABLET (FP) PO SCH (22:03)
[2023-03-11] MEDS: MONTELUKAST NA 10 MG TABLET PO SCH (22:03)
[2023-03-11] MEDS: GABAPENTIN 300 MG CAPSULE PO SCH (22:03)
[2023-03-12] MEDS ORDERED: ALBUTEROL SO4 0.083% IH SOL 2.5 MG/3 ML VIAL.NEB. NEB PRN (01:30)
[2023-03-12] MEDS ORDERED: GABAPENTIN 300 MG CAPSULE ONE ×2 (06:58→12:43)
[2023-03-12] MEDS ORDERED: LEVOTHYROXINE NA 125 MCG TABLET (FP) PO SCH (07:00)
[2023-03-12] MEDS ORDERED: PATIENT'S OWN MEDICATION (NON-FORMULARY) (Levothyroxine Sodium [Levothyroxine] 175 MCG Cap PO SCH (07:00)
[2023-03-12] MEDS: GABAPENTIN 300 MG CAPSULE PO SCH ×3 (07:03→22:11)
[2023-03-12 08:01] LABS: HEMATOCRIT 36.5 % (32.4-45.2); HEMOGLOBIN 10.9 GM/dL (10.7-15.3); MEAN CELL VOLUME 73.5 fl (80-96); MEAN PLT VOLUME 9.1 fl (7.5-11.1); PLATELET COUNT 229 10^3/uL (134-434); RBC 4.97 M/mm3 (3.60-5.2); RDW 19.5 % (11.6-15.6); WHITE BLOOD COUNT 7.3 K/mm3 (4.0-10.0)
[2023-03-12] MEDS ORDERED: CARVEDILOL 3.125 MG TABLET (FP) ONE (08:29)
[2023-03-12] MEDS ORDERED: ENOXAPARIN NA (PORCINE) 40 MG/0.4 ML DISP.SYRIN SQ ONE (08:29)
[2023-03-12] MEDS ORDERED: LEVOTHYROXINE NA 25 MCG TABLET (FP) ONE (08:29)
[2023-03-12] MEDS ORDERED: LEVOTHYROXINE NA 100 MCG TABLET (FP) ONE (08:29)
[2023-03-12 08:41] LABS: CALCIUM 8.1 mg/dL (8.5-10.1)
[2023-03-12 08:42] LABS: BLOOD UREA NITROGEN 12.7 mg/dL (7-18); MAGNESIUM 1.9 mg/dL (1.8-2.4)
[2023-03-12 08:45] LABS: CREATININE 0.7 mg/dL (0.55-1.3); PHOSPHOROUS 4.2 mg/dL (2.5-4.9)
[2023-03-12] MEDS: ENOXAPARIN NA (PORCINE) 40 MG/0.4 ML DISP.SYRIN SQ SCH (09:22)
[2023-03-12] MEDS: MEMANTINE HCL 5 MG TABLET (UD) PO SCH ×2 (09:22→22:11)
[2023-03-12] MEDS: CARVEDILOL 3.125 MG TABLET (FP) PO SCH ×2 (09:22→22:11)
[2023-03-12] MEDS ORDERED: FUROSEMIDE 40 MG/4 ML INJECTABLE VIAL ONE (09:32)
[2023-03-12] MEDS ORDERED: FUROSEMIDE 40 MG/4 ML INJECTABLE VIAL IVPUSH ONE (10:00)
[2023-03-12 17:11] VITALS: BMI 27.8
[2023-03-12] MEDS: MONTELUKAST NA 10 MG TABLET PO SCH (22:11)
[2023-03-12] MEDS: ATORVASTATIN CA 40 MG TABLET (FP) PO SCH (22:11)
[2023-03-13] MEDS: ACETAMINOPHEN 325 MG TABLET (FP) PO PRN (02:01)
[2023-03-13] MEDS: GABAPENTIN 300 MG CAPSULE PO SCH ×3 (06:11→21:23)
[2023-03-13] MEDS: LEVOTHYROXINE NA 100 MCG TABLET (FP) PO SCH (06:11)
[2023-03-13] MEDS: FUROSEMIDE 40 MG/4 ML INJECTABLE VIAL IVPUSH SCH (11:10)
[2023-03-13] MEDS: MEMANTINE HCL 5 MG TABLET (UD) PO SCH ×2 (11:10→21:23)
[2023-03-13] MEDS: ENOXAPARIN NA (PORCINE) 40 MG/0.4 ML DISP.SYRIN SQ SCH (11:10)
[2023-03-13] MEDS: CARVEDILOL 3.125 MG TABLET (FP) PO SCH ×2 (11:10→21:23)
[2023-03-13] MEDS: ATORVASTATIN CA 40 MG TABLET (FP) PO SCH (21:23)
[2023-03-13] MEDS: MONTELUKAST NA 10 MG TABLET PO SCH (21:23)
[2023-03-14] MEDS: ACETAMINOPHEN 325 MG TABLET (FP) PO PRN ×2 (05:34→11:14)
[2023-03-14] MEDS: GABAPENTIN 300 MG CAPSULE PO SCH ×3 (05:34→21:49)
[2023-03-14] MEDS: LEVOTHYROXINE NA 100 MCG TABLET (FP) PO SCH (06:27)
[2023-03-14] MEDS: FUROSEMIDE 40 MG/4 ML INJECTABLE VIAL IVPUSH SCH (09:27)
[2023-03-14] MEDS: CARVEDILOL 3.125 MG TABLET (FP) PO SCH ×2 (09:27→21:49)
[2023-03-14] MEDS: MEMANTINE HCL 5 MG TABLET (UD) PO SCH ×2 (09:27→21:49)
[2023-03-14] MEDS: ENOXAPARIN NA (PORCINE) 40 MG/0.4 ML DISP.SYRIN SQ SCH (09:27)
[2023-03-14 10:55] LABS: CALCIUM 8.1 mg/dL (8.5-10.1); POTASSIUM 3.7 mmol/L (3.5-5.1)
[2023-03-14 10:57] LABS: BLOOD UREA NITROGEN 12.7 mg/dL (7-18)
[2023-03-14 11:00] LABS: CREATININE 0.7 mg/dL (0.55-1.3)
[2023-03-14] MEDS: guaiFENesin 200 MG/10 ML 10 ML UNIT-DOSE CUPS PO PRN (16:39)
[2023-03-14] MEDS: MONTELUKAST NA 10 MG TABLET PO SCH (21:49)
[2023-03-14] MEDS: ATORVASTATIN CA 40 MG TABLET (FP) PO SCH (21:49)
[2023-03-15] MEDS: LEVOTHYROXINE NA 100 MCG TABLET (FP) PO SCH (06:13)
[2023-03-15] MEDS: GABAPENTIN 300 MG CAPSULE PO SCH ×3 (06:13→21:44)
[2023-03-15] MEDS: ENOXAPARIN NA (PORCINE) 40 MG/0.4 ML DISP.SYRIN SQ SCH (09:10)
[2023-03-15] MEDS: CARVEDILOL 3.125 MG TABLET (FP) PO SCH ×2 (09:10→21:44)
[2023-03-15] MEDS: MEMANTINE HCL 5 MG TABLET (UD) PO SCH ×2 (09:10→21:44)
[2023-03-15] MEDS: FUROSEMIDE 40 MG/4 ML INJECTABLE VIAL IVPUSH SCH (09:10)
[2023-03-15] MEDS: ATORVASTATIN CA 40 MG TABLET (FP) PO SCH (21:44)
[2023-03-15] MEDS: MONTELUKAST NA 10 MG TABLET PO SCH (21:44)
[2023-03-15] MEDS: ACETAMINOPHEN 325 MG TABLET (FP) PO PRN (22:17)
[2023-03-15] MEDS: NYSTATIN POWDER 100,000 UNITS/GM - 15 GM TOPICAL POWDER TP SCH (22:41)
[2023-03-16] MEDS: guaiFENesin 200 MG/10 ML 10 ML UNIT-DOSE CUPS PO PRN ×3 (00:59→21:22)
[2023-03-16] MEDS: LEVOTHYROXINE NA 100 MCG TABLET (FP) PO SCH (06:15)
[2023-03-16] MEDS: GABAPENTIN 300 MG CAPSULE PO SCH ×3 (06:16→21:21)
[2023-03-16] MEDS: ACETAMINOPHEN 325 MG TABLET (FP) PO PRN ×3 (10:08→21:21)
[2023-03-16] MEDS: FUROSEMIDE 40 MG/4 ML INJECTABLE VIAL IVPUSH SCH (10:08)
[2023-03-16] MEDS: CARVEDILOL 3.125 MG TABLET (FP) PO SCH ×2 (10:08→21:21)
[2023-03-16] MEDS: MEMANTINE HCL 5 MG TABLET (UD) PO SCH ×2 (10:08→21:26)
[2023-03-16] MEDS: ENOXAPARIN NA (PORCINE) 40 MG/0.4 ML DISP.SYRIN SQ SCH (10:09)
[2023-03-16] MEDS: NYSTATIN POWDER 100,000 UNITS/GM - 15 GM TOPICAL POWDER TP SCH ×2 (10:10→21:26)
[2023-03-16] MEDS: ATORVASTATIN CA 40 MG TABLET (FP) PO SCH (21:21)
[2023-03-16] MEDS: MONTELUKAST NA 10 MG TABLET PO SCH (21:21)
[2023-03-17] MEDS: LEVOTHYROXINE NA 100 MCG TABLET (FP) PO SCH (06:25)
[2023-03-17] MEDS: GABAPENTIN 300 MG CAPSULE PO SCH ×3 (06:25→21:18)
[2023-03-17] MEDS: ACETAMINOPHEN 325 MG TABLET (FP) PO PRN (06:55)
[2023-03-17] MEDS: FUROSEMIDE 40 MG/4 ML INJECTABLE VIAL IVPUSH SCH (09:24)
[2023-03-17] MEDS: NYSTATIN POWDER 100,000 UNITS/GM - 15 GM TOPICAL POWDER TP SCH ×2 (09:24→21:19)
[2023-03-17] MEDS: CARVEDILOL 3.125 MG TABLET (FP) PO SCH ×2 (09:24→21:18)
[2023-03-17] MEDS: ENOXAPARIN NA (PORCINE) 40 MG/0.4 ML DISP.SYRIN SQ SCH (09:24)
[2023-03-17] MEDS: MEMANTINE HCL 5 MG TABLET (UD) PO SCH ×2 (09:24→21:18)
[2023-03-17 10:02] LABS: BASO % 0.6 % (0-2.0); HEMATOCRIT 37.2 % (32.4-45.2); HEMOGLOBIN 11.1 GM/dL (10.7-15.3); LYMPH % 25.1 % (8-40); MCH 21.9 pg (25.7-33.7); MCHC 29.7 g/dl (32.0-36.0); MEAN CELL VOLUME 73.6 fl (80-96); MONO % 10.3 % (3.8-10.2); PLATELET COUNT 195 10^3/uL (134-434); RBC 5.05 M/mm3 (3.60-5.2); RDW 18.9 % (11.6-15.6); WHITE BLOOD COUNT 5.1 K/mm3 (4.0-10.0)
[2023-03-17 10:10] LABS: POTASSIUM 4.2 mmol/L (3.5-5.1)
[2023-03-17 10:13] LABS: ALBUMIN 2.8 g/dl (3.4-5.0); BLOOD UREA NITROGEN 14.6 mg/dL (7-18); CALCIUM 8.6 mg/dL (8.5-10.1)
[2023-03-17 10:17] LABS: CREATININE 0.6 mg/dL (0.55-1.3)
[2023-03-17 10:19] LABS: BILIRUBIN,TOTAL 0.7 mg/dL (0.2-1)
[2023-03-17 12:27] LABS: ANISOCYTOSIS 3+; MACROCYTOSIS 0
[2023-03-17] MEDS: guaiFENesin 200 MG/10 ML 10 ML UNIT-DOSE CUPS PO PRN (12:29)
[2023-03-17] MEDS: ATORVASTATIN CA 40 MG TABLET (FP) PO SCH (21:18)
[2023-03-17] MEDS: MONTELUKAST NA 10 MG TABLET PO SCH (21:18)
[2023-03-18] MEDS: ACETAMINOPHEN 325 MG TABLET (FP) PO PRN ×2 (06:21→14:22)
[2023-03-18] MEDS: LEVOTHYROXINE NA 100 MCG TABLET (FP) PO SCH (06:21)
[2023-03-18] MEDS: GABAPENTIN 300 MG CAPSULE PO SCH ×3 (06:21→21:40)
[2023-03-18] MEDS: CARVEDILOL 3.125 MG TABLET (FP) PO SCH ×2 (10:05→21:40)
[2023-03-18] MEDS: ENOXAPARIN NA (PORCINE) 40 MG/0.4 ML DISP.SYRIN SQ SCH (10:05)
[2023-03-18] MEDS: ASPIRIN COATED 81 MG TABLET.EC PO SCH (10:05)
[2023-03-18] MEDS: FUROSEMIDE 40 MG TABLET (FP) PO SCH (10:05)
[2023-03-18] MEDS: MEMANTINE HCL 5 MG TABLET (UD) PO SCH ×2 (10:05→21:40)
[2023-03-18 11:13] LABS: ARTERIAL BLOOD GAS BASE EXCESS 6.2 mmol/L (-2-2); ARTERIAL BLOOD GAS PO2 81.4 mmHg (80-100); ARTERIAL BLOOD GAS pH 7.338 (7.350-7.450)
[2023-03-18 11:15] LABS: ALLENS TEST POSITIVE
[2023-03-18] MEDS: NYSTATIN POWDER 100,000 UNITS/GM - 15 GM TOPICAL POWDER TP SCH ×2 (15:11→21:42)
[2023-03-18] MEDS: guaiFENesin 200 MG/10 ML 10 ML UNIT-DOSE CUPS PO PRN (15:11)
[2023-03-18] MEDS: MONTELUKAST NA 10 MG TABLET PO SCH (21:40)
[2023-03-18] MEDS: ATORVASTATIN CA 40 MG TABLET (FP) PO SCH (21:41)
[2023-03-19] MEDS: ACETAMINOPHEN 325 MG TABLET (FP) PO PRN (03:24)
[2023-03-19] MEDS: GABAPENTIN 300 MG CAPSULE PO SCH ×2 (05:57→13:04)
[2023-03-19] MEDS: LEVOTHYROXINE NA 100 MCG TABLET (FP) PO SCH (06:12)
[2023-03-19] MEDS: guaiFENesin 200 MG/10 ML 10 ML UNIT-DOSE CUPS PO PRN ×2 (07:09→11:50)
[2023-03-19] MEDS: ASPIRIN COATED 81 MG TABLET.EC PO SCH (10:04)
[2023-03-19] MEDS: MEMANTINE HCL 5 MG TABLET (UD) PO SCH (10:04)
[2023-03-19] MEDS: FUROSEMIDE 40 MG TABLET (FP) PO SCH (10:04)
[2023-03-19] MEDS: CARVEDILOL 3.125 MG TABLET (FP) PO SCH (10:04)
[2023-03-19] MEDS: NYSTATIN POWDER 100,000 UNITS/GM - 15 GM TOPICAL POWDER TP SCH (10:05)
[2023-03-19 10:49] VITALS: RESP 20
[2023-03-19 14:51] VITALS: BP 147/85; PULSE 63; TEMP 98.2
== END 2023-03-19 16:47 | disposition home or self-care (01) | DRG 280 ==
LOC: JER 14:42 → JERBED 18:03 → J4S 03-12 14:49
PROVIDERS: ADMIT Internal Medicine; ATTEND Internal Medicine
DX: I11.0 Hypertensive heart disease with heart failure (principal); I21.4 Non-ST elevation (NSTEMI) myocardial infarction; I50.33 Acute on chronic diastolic (congestive) heart failure; J96.20 Acute and chronic respiratory failure, unspecified whether with hypoxia or hypercapnia; I24.8 Other forms of acute ischemic heart disease; E03.9 Hypothyroidism, unspecified; E78.5 Hyperlipidemia, unspecified; R94.31 Abnormal electrocardiogram [ECG] [EKG]; F03.90 Unspecified dementia, unspecified severity, without behavioral disturbance, psychotic disturbance, mood disturbance, and anxiety; E11.9 Type 2 diabetes mellitus without complications; J44.9 Chronic obstructive pulmonary disease, unspecified; I25.119 Atherosclerotic heart disease of native coronary artery with unspecified angina pectoris
CPT/HCPCS: 0241U-QW; 36415; 36600; 71045-TC-FY; 71275-TC; 80048; 80053; 81003; 82803; 82962; 83735; 83880; 84100; 84443; 84484; 85025; 85027; 85610; 85730; 87086; 93005; 93010; 93306-TC; 94761; 97116-GP; 97161-GP; 99291; Q9967

== ENCOUNTER 2023-03-21 08:59 | Inpatient (IN) | payer OTHER ==
[2023-03-21] MEDS ORDERED: ACETAMINOPHEN 500 MG TABLET (FP) PO ONE (09:29)
[2023-03-21] MEDS ORDERED: METOCLOPRAMIDE HCL INJECTION 10 MG/2 ML VIAL IVPUSH ONE (09:29)
[2023-03-21] MEDS ORDERED: SODIUM CHLORIDE 0.9% 500 ML INFUS.BAG IV ONE (09:29)
[2023-03-21 09:35] VITALS: BMI 45.0
[2023-03-21] MEDS ORDERED: METOCLOPRAMIDE HCL INJECTION 10 MG/2 ML VIAL ONE (09:41)
[2023-03-21] MEDS ORDERED: ACETAMINOPHEN INJECTION 100 ML IVPB ONE (09:41)
[2023-03-21] MEDS ORDERED: ACETAMINOPHEN 1000 MG/100 ML BAG IVPB ONE (10:09)
[2023-03-21] MEDS ORDERED: MAGNESIUM SULF 50% (8.12 MEQ/2 ML-1 GM VIAL) IVPB ONE (11:04)
[2023-03-21] MEDS ORDERED: KETOROLAC TROMETHAMINE 30 MG/1 ML VIAL IVPUSH ONE (11:04)
[2023-03-21] MEDS ORDERED: ASPIRIN 325 MG TABLET PO ONE (11:05)
[2023-03-21] MEDS ORDERED: KETOROLAC TROMETHAMINE 15 MG/ML VIAL ONE (11:11)
[2023-03-21] MEDS ORDERED: MAGNESIUM SULFATE IN WATER 2 GM/50 ML IVPB IVPB ONE (11:11)
[2023-03-21] MEDS ORDERED: ASPIRIN 325 MG TABLET ONE (11:11)
[2023-03-21 11:41] LABS: EOS % 1.4 % (0-4.5); HEMATOCRIT 40.6 % (32.4-45.2); HEMOGLOBIN 12.3 GM/dL (10.7-15.3); LYMPH % 23.4 % (8-40); MCH 22.3 pg (25.7-33.7); MCHC 30.2 g/dl (32.0-36.0); MEAN CELL VOLUME 73.8 fl (80-96); MEAN PLT VOLUME 9.3 fl (7.5-11.1); MONO % 6.7 % (3.8-10.2); NEUT % 67.5 % (42.8-82.8); PLATELET COUNT 194 10^3/uL (134-434); RDW 19.4 % (11.6-15.6); WHITE BLOOD COUNT 6.1 K/mm3 (4.0-10.0)
[2023-03-21 11:48] LABS: INR 1.07 (0.83-1.09); PROTHROMBIN TIME (PATIENT) 12.4 SEC (9.7-13.0)
[2023-03-21 11:51] LABS: ACTIVATED PTT 30.9 SECONDS (25.2-36.5)
[2023-03-21 11:51] LABS: EPI CELLS >36 /uL (0-25.1); HYALINE CASTS 0 /uL (0-3.1); PH,URINE 8.5 (5.0-8.0); URINE APPEARANCE CLEAR; URINE BACTERIA 874 /uL (0-1359); URINE BILIRUBIN NEGATIVE (NEGATIVE); URINE COLOR YELLOW; URINE GLUCOSE (UA) NEGATIVE (NEGATIVE); URINE KETONE NEGATIVE (NEGATIVE); URINE LEUK ESTERASE TRACE (NEGATIVE); URINE NITRITE NEGATIVE (NEGATIVE); URINE PROTEIN NEGATIVE (NEGATIVE); URINE RBC 27 /uL (0-23.9); URINE WBC 41 /uL (0-25.8)
[2023-03-21 12:05] LABS: POTASSIUM 3.9 mmol/L (3.5-5.1)
[2023-03-21 12:08] LABS: ALBUMIN 3.2 g/dl (3.4-5.0); BLOOD UREA NITROGEN 11.8 mg/dL (7-18); CALCIUM 8.9 mg/dL (8.5-10.1)
[2023-03-21 12:11] LABS: CREATININE 0.6 mg/dL (0.55-1.3)
[2023-03-21 12:12] LABS: TOT PROT 7.7 g/dl (6.4-8.2)
[2023-03-21 12:13] LABS: BILIRUBIN,TOTAL 0.8 mg/dL (0.2-1)
[2023-03-21] MEDS: SODIUM CHLORIDE 1,000 ML IV SCH (12:57)
[2023-03-21 13:08] LABS: MAGNESIUM 1.8 mg/dL (1.8-2.4)
[2023-03-21] MEDS ORDERED: DOCUSATE SODIUM 100 MG CAPSULE (FP) PO PRN (15:41)
[2023-03-21] MEDS ORDERED: ALBUTEROL SO4 0.083% IH SOL 2.5 MG/3 ML VIAL.NEB. NEB PRN (15:41)
[2023-03-21] MEDS: ACETAMINOPHEN 325 MG TABLET (FP) PO PRN (21:29)
[2023-03-21] MEDS: GABAPENTIN 300 MG CAPSULE PO SCH (21:29)
[2023-03-21] MEDS: CARVEDILOL 3.125 MG TABLET (FP) PO SCH (21:29)
[2023-03-21] MEDS: MEMANTINE HCL 5 MG TABLET (UD) PO SCH (21:29)
[2023-03-22] MEDS: LEVOTHYROXINE 75 MCG, LEVOTHYROXINE 100 MCG PO SCH (06:55)
[2023-03-22] MEDS: GABAPENTIN 300 MG CAPSULE PO SCH ×3 (06:55→21:13)
[2023-03-22] MEDS: BUDESONIDE/FORMETEROL FUMARATE 160/4.5 mcg INHALER IH SCH ×3 (08:03→21:13)
[2023-03-22] MEDS ORDERED: PATIENT'S OWN MEDICATION (NON-FORMULARY) (Levothyroxine Sodium [Levothyroxine] 175 MCG Cap PO SCH (10:00)
[2023-03-22] MEDS: MONTELUKAST NA 10 MG TABLET PO SCH (10:34)
[2023-03-22] MEDS: PANTOPRAZOLE 40 MG TABLET PO SCH (10:34)
[2023-03-22] MEDS: MEMANTINE HCL 5 MG TABLET (UD) PO SCH ×2 (10:34→21:13)
[2023-03-22] MEDS: ATORVASTATIN CA 20 MG TABLET (FP) PO SCH (10:34)
[2023-03-22] MEDS: RAMIPRIL 2.5 MG CAPSULE PO SCH (10:34)
[2023-03-22] MEDS: CARVEDILOL 3.125 MG TABLET (FP) PO SCH ×2 (10:34→21:13)
[2023-03-22] MEDS: ASPIRIN COATED 81 MG TABLET.EC PO SCH (10:34)
[2023-03-22] MEDS: FUROSEMIDE 40 MG TABLET (FP) PO SCH (10:34)
[2023-03-22] MEDS: SODIUM CHLORIDE 1,000 ML IV SCH (10:35)
[2023-03-22] MEDS: FLUTICASONE PROP 0.05% 16 GM NASAL SPRAY NS SCH (15:12)
[2023-03-22] MEDS: AMOX TR/POT CLAV 500MG/125MG TABLETS (FP) PO SCH (17:15)
[2023-03-22] MEDS: ACETAMINOPHEN 325 MG TABLET (FP) PO PRN (23:24)
[2023-03-23] MEDS: GABAPENTIN 300 MG CAPSULE PO SCH ×3 (06:33→22:04)
[2023-03-23] MEDS: LEVOTHYROXINE 75 MCG, LEVOTHYROXINE 100 MCG PO SCH (06:33)
[2023-03-23] MEDS: AMOX TR/POT CLAV 500MG/125MG TABLETS (FP) PO SCH ×2 (07:40→16:48)
[2023-03-23] MEDS: MEMANTINE HCL 5 MG TABLET (UD) PO SCH ×2 (10:55→22:05)
[2023-03-23] MEDS: RAMIPRIL 2.5 MG CAPSULE PO SCH (10:55)
[2023-03-23] MEDS: FUROSEMIDE 40 MG TABLET (FP) PO SCH (10:55)
[2023-03-23] MEDS: ATORVASTATIN CA 20 MG TABLET (FP) PO SCH (10:55)
[2023-03-23] MEDS: ASPIRIN COATED 81 MG TABLET.EC PO SCH (10:55)
[2023-03-23] MEDS: FLUTICASONE PROP 0.05% 16 GM NASAL SPRAY NS SCH (10:55)
[2023-03-23] MEDS: MONTELUKAST NA 10 MG TABLET PO SCH (10:55)
[2023-03-23] MEDS: CARVEDILOL 3.125 MG TABLET (FP) PO SCH ×2 (10:55→22:04)
[2023-03-23] MEDS: PANTOPRAZOLE 40 MG TABLET PO SCH (10:55)
[2023-03-23] MEDS: SODIUM CHLORIDE 1,000 ML IV SCH (10:56)
[2023-03-23] MEDS: BUDESONIDE/FORMETEROL FUMARATE 160/4.5 mcg INHALER IH SCH ×2 (10:56→22:05)
[2023-03-24] MEDS: GABAPENTIN 300 MG CAPSULE PO SCH ×3 (06:02→22:15)
[2023-03-24] MEDS: LEVOTHYROXINE 75 MCG, LEVOTHYROXINE 100 MCG PO SCH (06:02)
[2023-03-24] MEDS: AMOX TR/POT CLAV 500MG/125MG TABLETS (FP) PO SCH ×2 (07:59→16:36)
[2023-03-24] MEDS: PANTOPRAZOLE 40 MG TABLET PO SCH (09:47)
[2023-03-24] MEDS: ATORVASTATIN CA 20 MG TABLET (FP) PO SCH (09:47)
[2023-03-24] MEDS: RAMIPRIL 2.5 MG CAPSULE PO SCH (09:47)
[2023-03-24] MEDS: CARVEDILOL 3.125 MG TABLET (FP) PO SCH ×2 (09:47→22:15)
[2023-03-24] MEDS: ASPIRIN COATED 81 MG TABLET.EC PO SCH (09:47)
[2023-03-24] MEDS: FUROSEMIDE 40 MG TABLET (FP) PO SCH (09:47)
[2023-03-24] MEDS: MEMANTINE HCL 5 MG TABLET (UD) PO SCH ×2 (09:47→22:15)
[2023-03-24] MEDS: MONTELUKAST NA 10 MG TABLET PO SCH (09:47)
[2023-03-24] MEDS: FLUTICASONE PROP 0.05% 16 GM NASAL SPRAY NS SCH (09:48)
[2023-03-24] MEDS: SODIUM CHLORIDE 1,000 ML IV SCH (09:48)
[2023-03-24] MEDS: BUDESONIDE/FORMETEROL FUMARATE 160/4.5 mcg INHALER IH SCH ×2 (09:48→22:21)
[2023-03-24] MEDS: ACETAMINOPHEN 325 MG TABLET (FP) PO PRN ×2 (12:43→22:15)
[2023-03-25] MEDS: GABAPENTIN 300 MG CAPSULE PO SCH ×3 (06:24→22:08)
[2023-03-25] MEDS: LEVOTHYROXINE 75 MCG, LEVOTHYROXINE 100 MCG PO SCH (06:24)
[2023-03-25] MEDS: AMOX TR/POT CLAV 500MG/125MG TABLETS (FP) PO SCH ×2 (08:40→17:04)
[2023-03-25] MEDS: PANTOPRAZOLE 40 MG TABLET PO SCH (10:34)
[2023-03-25] MEDS: MEMANTINE HCL 5 MG TABLET (UD) PO SCH ×2 (10:34→22:08)
[2023-03-25] MEDS: MONTELUKAST NA 10 MG TABLET PO SCH (10:34)
[2023-03-25] MEDS: ASPIRIN COATED 81 MG TABLET.EC PO SCH (10:34)
[2023-03-25] MEDS: ATORVASTATIN CA 20 MG TABLET (FP) PO SCH (10:34)
[2023-03-25] MEDS: FUROSEMIDE 40 MG TABLET (FP) PO SCH (10:34)
[2023-03-25] MEDS: CARVEDILOL 3.125 MG TABLET (FP) PO SCH ×2 (10:34→22:09)
[2023-03-25] MEDS: RAMIPRIL 2.5 MG CAPSULE PO SCH (10:34)
[2023-03-25] MEDS: FLUTICASONE PROP 0.05% 16 GM NASAL SPRAY NS SCH (10:35)
[2023-03-25] MEDS: SODIUM CHLORIDE 1,000 ML IV SCH (10:35)
[2023-03-25] MEDS: BUDESONIDE/FORMETEROL FUMARATE 160/4.5 mcg INHALER IH SCH ×2 (10:36→22:15)
[2023-03-25] MEDS: ACETAMINOPHEN 325 MG TABLET (FP) PO PRN (22:08)
[2023-03-26] MEDS ORDERED: diphenhydrAMINE HCL 25 MG CAPSULE (FP) PO ONE (01:00)
[2023-03-26] MEDS: ACETAMINOPHEN 325 MG TABLET (FP) PO PRN ×3 (05:37→21:09)
[2023-03-26] MEDS: GABAPENTIN 300 MG CAPSULE PO SCH ×3 (05:39→21:06)
[2023-03-26] MEDS: LEVOTHYROXINE 75 MCG, LEVOTHYROXINE 100 MCG PO SCH (07:24)
[2023-03-26] MEDS: AMOX TR/POT CLAV 500MG/125MG TABLETS (FP) PO SCH ×2 (08:46→16:44)
[2023-03-26] MEDS: FUROSEMIDE 40 MG TABLET (FP) PO SCH (09:03)
[2023-03-26] MEDS: CARVEDILOL 3.125 MG TABLET (FP) PO SCH ×2 (09:03→21:06)
[2023-03-26] MEDS: MONTELUKAST NA 10 MG TABLET PO SCH (09:03)
[2023-03-26] MEDS: RAMIPRIL 2.5 MG CAPSULE PO SCH (09:03)
[2023-03-26] MEDS: PANTOPRAZOLE 40 MG TABLET PO SCH (09:03)
[2023-03-26] MEDS: MEMANTINE HCL 5 MG TABLET (UD) PO SCH ×2 (09:03→21:06)
[2023-03-26] MEDS: ASPIRIN COATED 81 MG TABLET.EC PO SCH (09:03)
[2023-03-26] MEDS: ATORVASTATIN CA 20 MG TABLET (FP) PO SCH (09:04)
[2023-03-26] MEDS: FLUTICASONE PROP 0.05% 16 GM NASAL SPRAY NS SCH (09:04)
[2023-03-26] MEDS: BUDESONIDE/FORMETEROL FUMARATE 160/4.5 mcg INHALER IH SCH ×2 (09:06→21:06)
[2023-03-26] MEDS: SODIUM CHLORIDE 1,000 ML IV SCH (09:09)
[2023-03-26 11:36] LABS: CHLORIDE 99 mmol/L (98-107); POTASSIUM 4.4 mmol/L (3.5-5.1)
[2023-03-26 11:39] LABS: CALCIUM 8.6 mg/dL (8.5-10.1)
[2023-03-26 11:40] LABS: BLOOD UREA NITROGEN 14.4 mg/dL (7-18); CO2 33 mmol/L (21-32); GLUCOSE,RANDOM 223 mg/dL (74-106)
[2023-03-26 11:42] LABS: SGPT/ALT 22 U/L (13-61)
[2023-03-26 11:43] LABS: CREATININE 0.7 mg/dL (0.55-1.3); SGOT/AST 29 U/L (15-37)
[2023-03-26 11:44] LABS: BILIRUBIN,TOTAL 0.7 mg/dL (0.2-1); TOT PROT 7.2 g/dl (6.4-8.2)
[2023-03-26 11:45] LABS: ALK PHOS 92 U/L (45-117)
[2023-03-26 11:50] LABS: ANION GAP 7 MMOL/L (8-16); SODIUM 138 mmol/L (136-145)
[2023-03-26 11:59] LABS: BASO % 0.7 % (0-2.0); EOS % 1.9 % (0-4.5); HEMATOCRIT 38.3 % (32.4-45.2); HEMOGLOBIN 11.6 GM/dL (10.7-15.3); LYMPH % 25.7 % (8-40); MCH 22.4 pg (25.7-33.7); MCHC 30.4 g/dl (32.0-36.0); MEAN CELL VOLUME 73.7 fl (80-96); MEAN PLT VOLUME 8.8 fl (7.5-11.1); MONO % 5.6 % (3.8-10.2); NEUT % 66.1 % (42.8-82.8); PLATELET COUNT 199 10^3/uL (134-434); RDW 19.8 % (11.6-15.6); WHITE BLOOD COUNT 6.2 K/mm3 (4.0-10.0)
[2023-03-26 15:25] LABS: BLOOD UREA NITROGEN 13.6 mg/dL (7-18)
[2023-03-26 15:26] LABS: ALBUMIN 3.2 g/dl (3.4-5.0)
[2023-03-26 15:28] LABS: CREATININE 0.7 mg/dL (0.55-1.3)
[2023-03-26 15:30] LABS: BILIRUBIN,TOTAL 0.8 mg/dL (0.2-1); TOT PROT 7.7 g/dl (6.4-8.2)
[2023-03-26 23:31] VITALS: RESP 16
[2023-03-27] MEDS: ACETAMINOPHEN 325 MG TABLET (FP) PO PRN ×2 (04:13→10:48)
[2023-03-27] MEDS: GABAPENTIN 300 MG CAPSULE PO SCH (06:12)
[2023-03-27] MEDS: LEVOTHYROXINE 75 MCG, LEVOTHYROXINE 100 MCG PO SCH (06:12)
[2023-03-27 09:20] VITALS: BP 112/66; PULSE 65; TEMP 98.9
[2023-03-27] MEDS: AMOX TR/POT CLAV 500MG/125MG TABLETS (FP) PO SCH (10:47)
[2023-03-27] MEDS: ASPIRIN COATED 81 MG TABLET.EC PO SCH (10:48)
[2023-03-27] MEDS: MONTELUKAST NA 10 MG TABLET PO SCH (10:48)
[2023-03-27] MEDS: RAMIPRIL 2.5 MG CAPSULE PO SCH (10:48)
[2023-03-27] MEDS: CARVEDILOL 3.125 MG TABLET (FP) PO SCH (10:48)
[2023-03-27] MEDS: ATORVASTATIN CA 20 MG TABLET (FP) PO SCH (10:48)
[2023-03-27] MEDS: FUROSEMIDE 40 MG TABLET (FP) PO SCH (10:48)
[2023-03-27] MEDS: PANTOPRAZOLE 40 MG TABLET PO SCH (10:48)
[2023-03-27] MEDS: MEMANTINE HCL 5 MG TABLET (UD) PO SCH (10:48)
[2023-03-27] MEDS: BUDESONIDE/FORMETEROL FUMARATE 160/4.5 mcg INHALER IH SCH (10:49)
[2023-03-27] MEDS: FLUTICASONE PROP 0.05% 16 GM NASAL SPRAY NS SCH (10:49)
== END 2023-03-27 14:38 | DRG 103 ==
LOC: JER 08:59 → JERBED 10:41 → J4W 18:21
PROVIDERS: ADMIT Internal Medicine; ATTEND Internal Medicine
DX: G44.229 Chronic tension-type headache, not intractable (principal); I50.32 Chronic diastolic (congestive) heart failure; I24.8 Other forms of acute ischemic heart disease; H70.001 Acute mastoiditis without complications, right ear; E78.5 Hyperlipidemia, unspecified; J44.9 Chronic obstructive pulmonary disease, unspecified; Z85.3 Personal history of malignant neoplasm of breast; E03.9 Hypothyroidism, unspecified; F03.90 Unspecified dementia, unspecified severity, without behavioral disturbance, psychotic disturbance, mood disturbance, and anxiety; I11.0 Hypertensive heart disease with heart failure; R77.8 Other specified abnormalities of plasma proteins; G47.33 Obstructive sleep apnea (adult) (pediatric); E11.42 Type 2 diabetes mellitus with diabetic polyneuropathy; R42 Dizziness and giddiness
CPT/HCPCS: 0241U-QW; 36415; 70450-TC; 70496-TC; 70498-TC; 70551-TC; 70553-TC; 71045-TC-FY; 80053; 80061; 81003; 82550; 82553; 82962; 83036; 83735; 84484; 85025; 85610; 85730; 86850; 86900; 86901; 93005; 93010; 97116-GP; 97161-GP; 99291; A9579; Q9967

== ENCOUNTER 2023-06-06 14:57 | Observation (INO) | payer OTHER ==
[2023-06-06] MEDS ORDERED: ACETAMINOPHEN 1000 MG/100 ML BAG IVPB ONE (15:34)
[2023-06-06] MEDS ORDERED: ACETAMINOPHEN INJECTION 100 ML IVPB ONE (16:18)
[2023-06-06 16:30] LABS: BASO % 0.5 % (0-2.0); EOS % 1.6 % (0-4.5); HEMATOCRIT 39.2 % (32.4-45.2); HEMOGLOBIN 12.3 GM/dL (10.7-15.3); LYMPH % 15.2 % (8-40); MCH 23.2 pg (25.7-33.7); MCHC 31.5 g/dl (32.0-36.0); MEAN CELL VOLUME 73.5 fl (80-96); MONO % 7.4 % (3.8-10.2); NEUT % 75.3 % (42.8-82.8); PLATELET COUNT 258 10^3/uL (134-434); RBC 5.33 M/mm3 (3.60-5.2); RDW 16.3 % (11.6-15.6); WHITE BLOOD COUNT 10.9 K/mm3 (4.0-10.0)
[2023-06-06 16:32] LABS: EPI CELLS 14 /uL (0-25.1); HYALINE CASTS 0 /uL (0-3.1); URINE APPEARANCE CLEAR; URINE BACTERIA 313 /uL (0-1359); URINE BILIRUBIN NEGATIVE (NEGATIVE); URINE COLOR YELLOW; URINE GLUCOSE (UA) NEGATIVE (NEGATIVE); URINE KETONE NEGATIVE (NEGATIVE); URINE LEUK ESTERASE TRACE (NEGATIVE); URINE NITRITE NEGATIVE (NEGATIVE); URINE PROTEIN NEGATIVE (NEGATIVE); URINE RBC 4 /uL (0-23.9); URINE UROBILINOGEN 0.2 mg/dL (0.2-1.0); URINE WBC 27 /uL (0-25.8)
[2023-06-06 16:37] LABS: INR 1.15 (0.83-1.09); PROTHROMBIN TIME (PATIENT) 13.3 SEC (9.7-13.0)
[2023-06-06 16:40] LABS: ACTIVATED PTT 33.4 SECONDS (25.2-36.5)
[2023-06-06 16:47] LABS: VENOUS BASE EXCESS 6.2 mmol/L (-2-2); VENOUS O2 SATURATION 37.6 % (70-80); VENOUS PCO2 64.8 mmHg (38-52); VENOUS PH 7.339 (7.310-7.410)
[2023-06-06 16:49] LABS: POTASSIUM 4.3 mmol/L (3.5-5.1)
[2023-06-06 16:51] LABS: ALBUMIN 3.3 g/dl (3.4-5.0); CALCIUM 9.2 mg/dL (8.5-10.1)
[2023-06-06 16:52] LABS: BLOOD UREA NITROGEN 13.5 mg/dL (7-18); MAGNESIUM 1.5 mg/dL (1.8-2.4)
[2023-06-06 16:54] LABS: CREATININE 0.9 mg/dL (0.55-1.3)
[2023-06-06 16:55] LABS: PHOSPHOROUS 4.3 mg/dL (2.5-4.9)
[2023-06-06 16:56] LABS: BILIRUBIN,TOTAL 0.9 mg/dL (0.2-1); TOT PROT 7.9 g/dl (6.4-8.2)
[2023-06-06 17:00] LABS: N-TERMINAL BNP 1165.6 pg/ml (5-450)
[2023-06-06] MEDS ORDERED: ASPIRIN COATED 81 MG TABLET.EC ONE (17:35)
[2023-06-06] MEDS ORDERED: ASPIRIN COATED 81 MG TABLET.EC PO ONE (17:40)
[2023-06-06] MEDS ORDERED: DEXTROSE 50%-WATER - 25 GM/50 ML VIAL IVPUSH ONE (19:26)
[2023-06-06] MEDS ORDERED: DEXTROSE 50%-WATER 25 GM/50 ML DISP.SYRIN ONE (19:27)
[2023-06-06] MEDS ORDERED: MAGNESIUM SULF 50% (8.12 MEQ/2 ML-1 GM VIAL) IVPB ONE (19:46)
[2023-06-06] MEDS ORDERED: DOCUSATE SODIUM 100 MG CAPSULE (FP) PO PRN (19:48)
[2023-06-06] MEDS ORDERED: ACETAMINOPHEN 325 MG TABLET (FP) PO PRN (19:48)
[2023-06-06] MEDS ORDERED: MAGNESIUM SULFATE IN WATER 2 GM/50 ML IVPB IVPB ONE (20:00)
[2023-06-06] MEDS ORDERED: INSULIN SLIDING SCALE (NOVOLOG) 1 VIAL SQ SCH (22:00)
[2023-06-06] MEDS ORDERED: guaiFENesin 200 MG/10 ML 10 ML UNIT-DOSE CUPS PO PRN (22:42)
[2023-06-06] MEDS ORDERED: ALBUTEROL SO4 0.083% IH SOL 2.5 MG/3 ML VIAL.NEB. NEB PRN (22:42)
[2023-06-06] MEDS ORDERED: FUROSEMIDE 40 MG/4 ML INJECTABLE VIAL IVPUSH ONE (23:00)
[2023-06-07] MEDS: BUDESONIDE/FORMETEROL FUMARATE 160/4.5 mcg INHALER IH SCH ×3 (00:04→21:12)
[2023-06-07] MEDS ORDERED: DEXTROSE 50%-WATER - 25 GM/50 ML VIAL IVPUSH ONE (01:41)
[2023-06-07] MEDS ORDERED: DEXTROSE 50%-WATER 25 GM/50 ML DISP.SYRIN ONE (01:41)
[2023-06-07 02:49] VITALS: BMI 23.7
[2023-06-07] MEDS ORDERED: INSULIN SLIDING SCALE (NOVOLOG) 1 VIAL SQ SCH (07:00)
[2023-06-07 07:08] LABS: BASO % 0.4 % (0-2.0); EOS % 2.1 % (0-4.5); HEMATOCRIT 39.4 % (32.4-45.2); HEMOGLOBIN 12.1 GM/dL (10.7-15.3); LYMPH % 14.7 % (8-40); MCHC 30.7 g/dl (32.0-36.0); MEAN CELL VOLUME 74.9 fl (80-96); MEAN PLT VOLUME 8.8 fl (7.5-11.1); MONO % 8.2 % (3.8-10.2); NEUT % 74.6 % (42.8-82.8); PLATELET COUNT 248 10^3/uL (134-434); RBC 5.26 M/mm3 (3.60-5.2); RDW 16.2 % (11.6-15.6); WHITE BLOOD COUNT 8.6 K/mm3 (4.0-10.0)
[2023-06-07 07:18] LABS: POTASSIUM 3.6 mmol/L (3.5-5.1)
[2023-06-07] MEDS: GABAPENTIN 300 MG CAPSULE PO SCH ×3 (07:19→21:08)
[2023-06-07] MEDS: LEVOTHYROXINE NA 150 MCG TABLET PO SCH (07:20)
[2023-06-07 07:25] LABS: CALCIUM 8.6 mg/dL (8.5-10.1); MAGNESIUM 1.9 mg/dL (1.8-2.4)
[2023-06-07 07:26] LABS: BLOOD UREA NITROGEN 13.3 mg/dL (7-18)
[2023-06-07 07:28] LABS: CREATININE 0.8 mg/dL (0.55-1.3)
[2023-06-07] MEDS: FUROSEMIDE 40 MG TABLET (FP) PO SCH (09:10)
[2023-06-07] MEDS: MONTELUKAST NA 10 MG TABLET PO SCH (09:10)
[2023-06-07] MEDS: MEMANTINE HCL 5 MG TABLET (UD) PO SCH ×2 (09:10→21:08)
[2023-06-07] MEDS: ASPIRIN COATED 81 MG TABLET.EC PO SCH (09:10)
[2023-06-07] MEDS: CARVEDILOL 3.125 MG TABLET (FP) PO SCH ×2 (09:10→21:08)
[2023-06-07] MEDS ORDERED: ASPIRIN COATED 81 MG TABLET.EC PO SCH (10:00)
[2023-06-07] MEDS ORDERED: PATIENT'S OWN MEDICATION (NON-FORMULARY) (Levothyroxine Sodium [Levothyroxine Sodium] 175 PO SCH (10:00)
[2023-06-07] MEDS ORDERED: BENZOCAINE/MENTH/CETYLPYRD CL 1 EACH LOZENGE MM PRN (10:17)
[2023-06-07] MEDS: guaiFENesin/D-METHORPHAN HB 10 ML UNIT-DOSE CUPS PO PRN ×2 (11:22→21:11)
[2023-06-07] MEDS ORDERED: ATORVASTATIN CA 40 MG TABLET (FP) PO SCH (22:00)
[2023-06-08] MEDS: guaiFENesin/D-METHORPHAN HB 10 ML UNIT-DOSE CUPS PO PRN ×2 (03:34→11:27)
[2023-06-08 03:41] VITALS: RESP 20
[2023-06-08] MEDS: GABAPENTIN 300 MG CAPSULE PO SCH ×2 (06:43→13:48)
[2023-06-08] MEDS: LEVOTHYROXINE NA 150 MCG TABLET PO SCH (06:43)
[2023-06-08] MEDS: ASPIRIN COATED 81 MG TABLET.EC PO SCH (09:08)
[2023-06-08] MEDS: MEMANTINE HCL 5 MG TABLET (UD) PO SCH (09:08)
[2023-06-08] MEDS: FUROSEMIDE 40 MG TABLET (FP) PO SCH (09:08)
[2023-06-08] MEDS: MONTELUKAST NA 10 MG TABLET PO SCH (09:08)
[2023-06-08] MEDS: CARVEDILOL 3.125 MG TABLET (FP) PO SCH (09:08)
[2023-06-08] MEDS: BUDESONIDE/FORMETEROL FUMARATE 160/4.5 mcg INHALER IH SCH (09:16)
[2023-06-08 18:22] VITALS: BP 102/53; PULSE 72; TEMP 98.7
== END 2023-06-08 16:40 | disposition home or self-care (01) ==
LOC: JER 14:57 → JERBED 19:47 → J4W 06-07 02:00
PROVIDERS: ADMIT Internal Medicine; ATTEND Internal Medicine
PROC: 3E033NZ Introduction of Analgesics, Hypnotics, Sedatives into Peripheral Vein, Percutaneous Approach (ICD-10-PCS; principal; 2023-06-06)
PROC: 3E033GC Introduction of Other Therapeutic Substance into Peripheral Vein, Percutaneous Approach (ICD-10-PCS; 2023-06-06)
DX: J96.21 Acute and chronic respiratory failure with hypoxia (principal); J96.22 Acute and chronic respiratory failure with hypercapnia; I50.30 Unspecified diastolic (congestive) heart failure; I11.0 Hypertensive heart disease with heart failure; Z99.81 Dependence on supplemental oxygen; J18.9 Pneumonia, unspecified organism; I21.4 Non-ST elevation (NSTEMI) myocardial infarction; J44.9 Chronic obstructive pulmonary disease, unspecified; G47.33 Obstructive sleep apnea (adult) (pediatric); Z91.199 Patient's noncompliance with other medical treatment and regimen due to unspecified reason; E78.5 Hyperlipidemia, unspecified; E11.40 Type 2 diabetes mellitus with diabetic neuropathy, unspecified; E03.9 Hypothyroidism, unspecified; Z90.10 Acquired absence of unspecified breast and nipple; Z85.3 Personal history of malignant neoplasm of breast
CPT/HCPCS: 0241U-QW; 36415; 71045-TC-FY; 80048; 80053; 81003; 82803; 82962; 83735; 83880; 84100; 84439; 84443; 84484; 85025; 85610; 85730; 86850; 86900; 86901; 87086; 93005; 93010; 96374; 96375; 96376; 97116-GP; 97161-GP; 99285-25; G0378

== ENCOUNTER 2023-06-12 11:28 | Observation (INO) | payer OTHER ==
[2023-06-12 11:37] VITALS: BMI 24.0
[2023-06-12 14:29] LABS: POTASSIUM 3.6 mmol/L (3.5-5.1)
[2023-06-12 14:30] LABS: CALCIUM 8.9 mg/dL (8.5-10.1)
[2023-06-12 14:35] LABS: CREATININE 0.7 mg/dL (0.55-1.3)
[2023-06-12 14:36] LABS: TOT PROT 7.9 g/dl (6.4-8.2)
[2023-06-12 14:41] LABS: BASO % 0.5 % (0-2.0); EOS % 1.3 % (0-4.5); HEMATOCRIT 39.4 % (32.4-45.2); LYMPH % 16.1 % (8-40); MCH 22.7 pg (25.7-33.7); MCHC 30.5 g/dl (32.0-36.0); MEAN CELL VOLUME 74.4 fl (80-96); MEAN PLT VOLUME 8.7 fl (7.5-11.1); NEUT % 74.1 % (42.8-82.8); PLATELET COUNT 295 10^3/uL (134-434); RDW 16.2 % (11.6-15.6); WHITE BLOOD COUNT 9.6 K/mm3 (4.0-10.0)
[2023-06-12 14:41] LABS: EPI CELLS 11 /uL (0-25.1); HYALINE CASTS 0 /uL (0-3.1); PH,URINE 6.5 (5.0-8.0); URINE APPEARANCE CLEAR; URINE BACTERIA 213 /uL (0-1359); URINE BILIRUBIN NEGATIVE (NEGATIVE); URINE COLOR YELLOW; URINE GLUCOSE (UA) NEGATIVE (NEGATIVE); URINE KETONE NEGATIVE (NEGATIVE); URINE LEUK ESTERASE TRACE (NEGATIVE); URINE NITRITE NEGATIVE (NEGATIVE); URINE PROTEIN NEGATIVE (NEGATIVE); URINE RBC 8 /uL (0-23.9); URINE WBC 6 /uL (0-25.8)
[2023-06-12 14:43] LABS: N-TERMINAL BNP 1936.4 pg/ml (5-450)
[2023-06-12] MEDS ORDERED: ACETAMINOPHEN 1000 MG/100 ML BAG IVPB ONE (15:49)
[2023-06-12] MEDS ORDERED: ACETAMINOPHEN INJECTION 100 ML IVPB ONE (15:49)
[2023-06-12] MEDS ORDERED: FUROSEMIDE 40 MG/4 ML INJECTABLE VIAL IVPUSH ONE ×2 (16:09→16:10)
[2023-06-12] MEDS ORDERED: VANCOMYCIN 1,000 MG in DEXTROSE 5%-WATER - 250 ML IVPB ONE (16:12)
[2023-06-12] MEDS ORDERED: PIPERACILLIN/TAZOB 4.5 GM 4.5 GM in DEXTROSE 5%-WATER 100 ML IVPB ONE (16:12)
[2023-06-12] MEDS ORDERED: FUROSEMIDE 40 MG/4 ML INJECTABLE VIAL ONE (16:58)
[2023-06-12] MEDS ORDERED: PIPERACILLIN/TAZOB 4.5 GM 4.5 GM/100 ML BAG IVPB ONE (16:58)
[2023-06-12] MEDS ORDERED: VANCOMYCIN 1 GRAM (PRE-DOCKED) 1,000 MG/250 ML BAG IVPB ONE (17:55)
[2023-06-13] MEDS ORDERED: ALBUTEROL SO4 0.083% IH SOL 2.5 MG/3 ML VIAL.NEB. NEB PRN (01:16)
[2023-06-13] MEDS ORDERED: PIPERACILLIN/TAZOB 4.5 GM 4.5 GM/100 ML BAG IVPB ONE (02:51)
[2023-06-13] MEDS: PIPERACILLIN/TAZOB 4.5 GM 4.5 GM in DEXTROSE 5%-WATER 100 ML IVPB SCH ×3 (02:55→10:29)
[2023-06-13] MEDS: GABAPENTIN 300 MG CAPSULE PO SCH ×3 (05:53→22:18)
[2023-06-13] MEDS ORDERED: VANCOMYCIN/WATER FOR INJ (PEG) 1,000 MG/200 ML BAG IVPB SCH (06:00)
[2023-06-13] MEDS ORDERED: VANCOMYCIN 1,000 MG in DEXTROSE 5%-WATER - 250 ML IVPB SCH (07:00)
[2023-06-13 09:58] LABS: CHLORIDE 94 mmol/L (98-107); POTASSIUM 3.7 mmol/L (3.5-5.1); SODIUM 134 mmol/L (136-145)
[2023-06-13 10:05] LABS: ALBUMIN 3.2 g/dl (3.4-5.0)
[2023-06-13 10:08] LABS: ANION GAP 9 mmol/L (4-13); CO2 31 mmol/L (21-32)
[2023-06-13 10:09] LABS: BILIRUBIN,TOTAL 1.2 mg/dL (0.2-1)
[2023-06-13 10:10] LABS: TOT PROT 8.6 g/dl (6.4-8.2)
[2023-06-13 10:11] LABS: ALK PHOS 101 U/L (45-117); CREATININE 0.7 mg/dL (0.55-1.3); SGOT/AST 28 U/L (15-37); SGPT/ALT 22 U/L (13-61)
[2023-06-13 10:13] LABS: GLUCOSE,RANDOM 46 mg/dL (74-106)
[2023-06-13] MEDS: MEMANTINE HCL 5 MG TABLET (UD) PO SCH ×2 (10:14→22:18)
[2023-06-13] MEDS: PANTOPRAZOLE 40 MG TABLET PO SCH (10:14)
[2023-06-13] MEDS: CARVEDILOL 3.125 MG TABLET (FP) PO SCH ×2 (10:14→22:18)
[2023-06-13] MEDS: FUROSEMIDE 40 MG TABLET (FP) PO SCH (10:14)
[2023-06-13] MEDS: BUDESONIDE/FORMETEROL FUMARATE 160/4.5 mcg INHALER IH SCH ×2 (10:14→22:18)
[2023-06-13 10:39] LABS: BASO % 0.8 % (0-2.0); EOS % 1.9 % (0-4.5); HEMATOCRIT 42.7 % (32.4-45.2); HEMOGLOBIN 13.1 GM/dL (10.7-15.3); LYMPH % 13.1 % (8-40); MCHC 30.6 g/dl (32.0-36.0); MEAN CELL VOLUME 75.1 fl (80-96); MEAN PLT VOLUME 8.6 fl (7.5-11.1); MONO % 6.9 % (3.8-10.2); NEUT % 77.3 % (42.8-82.8); PLATELET COUNT 290 10^3/uL (134-434); RBC 5.68 M/mm3 (3.60-5.2); RDW 16.6 % (11.6-15.6); WHITE BLOOD COUNT 10.7 K/mm3 (4.0-10.0)
[2023-06-13 13:22] LABS: ARTERIAL BLD GAS O2 SATURATION 96.9 % (95-98); ARTERIAL BLOOD GAS BASE EXCESS 4.2 mmol/L (-2-2); ARTERIAL BLOOD GAS PO2 93.5 mmHg (80-100); ARTERIAL BLOOD GAS pH 7.381 (7.350-7.450)
[2023-06-13 13:23] LABS: ALLENS TEST POSITIVE
[2023-06-13] MEDS ORDERED: methylPREDNISolone NA SUCC 40 MG/1 ML VIAL IVPUSH SCH (15:45)
[2023-06-13] MEDS: methylPREDNISolone NA SUCC 40 MG/1 ML VIAL IVPUSH SCH (22:17)
[2023-06-13] MEDS: ACETAMINOPHEN 325 MG TABLET (FP) PO PRN (22:18)
[2023-06-14] MEDS: GABAPENTIN 300 MG CAPSULE PO SCH ×3 (06:04→21:02)
[2023-06-14] MEDS: methylPREDNISolone NA SUCC 40 MG/1 ML VIAL IVPUSH SCH ×3 (06:04→22:47)
[2023-06-14] MEDS: PANTOPRAZOLE 40 MG TABLET PO SCH (10:18)
[2023-06-14] MEDS: FUROSEMIDE 40 MG TABLET (FP) PO SCH (10:18)
[2023-06-14] MEDS: CARVEDILOL 3.125 MG TABLET (FP) PO SCH ×2 (10:18→21:03)
[2023-06-14] MEDS: MEMANTINE HCL 5 MG TABLET (UD) PO SCH ×2 (10:18→21:02)
[2023-06-14] MEDS: BUDESONIDE/FORMETEROL FUMARATE 160/4.5 mcg INHALER IH SCH ×2 (10:18→21:02)
[2023-06-14] MEDS: ACETAMINOPHEN 325 MG TABLET (FP) PO PRN (21:01)
[2023-06-15] MEDS: ACETAMINOPHEN 325 MG TABLET (FP) PO PRN (04:05)
[2023-06-15] MEDS: GABAPENTIN 300 MG CAPSULE PO SCH ×3 (06:01→21:43)
[2023-06-15] MEDS: methylPREDNISolone NA SUCC 40 MG/1 ML VIAL IVPUSH SCH ×2 (06:01→21:43)
[2023-06-15] MEDS: FUROSEMIDE 40 MG TABLET (FP) PO SCH (10:06)
[2023-06-15] MEDS: MEMANTINE HCL 5 MG TABLET (UD) PO SCH ×2 (10:06→21:43)
[2023-06-15] MEDS: CARVEDILOL 3.125 MG TABLET (FP) PO SCH ×2 (10:06→21:43)
[2023-06-15] MEDS: BUDESONIDE/FORMETEROL FUMARATE 160/4.5 mcg INHALER IH SCH ×2 (10:07→21:44)
[2023-06-15] MEDS: PANTOPRAZOLE 40 MG TABLET PO SCH (10:07)
[2023-06-15] MEDS ORDERED: AZITHROMYCIN 500 MG TABLET PO ONE (10:30)
[2023-06-15] MEDS ORDERED: methylPREDNISolone NA SUCC 40 MG/1 ML VIAL IVPUSH SCH (14:00)
[2023-06-16] MEDS: methylPREDNISolone NA SUCC 40 MG/1 ML VIAL IVPUSH SCH ×3 (06:10→22:01)
[2023-06-16] MEDS: GABAPENTIN 300 MG CAPSULE PO SCH ×3 (06:10→22:00)
[2023-06-16] MEDS: FUROSEMIDE 40 MG TABLET (FP) PO SCH (09:13)
[2023-06-16] MEDS: MEMANTINE HCL 5 MG TABLET (UD) PO SCH ×2 (09:13→22:01)
[2023-06-16] MEDS: PANTOPRAZOLE 40 MG TABLET PO SCH (09:13)
[2023-06-16] MEDS: CARVEDILOL 3.125 MG TABLET (FP) PO SCH ×2 (09:13→22:03)
[2023-06-16] MEDS: AZITHROMYCIN 250 MG TABLET PO SCH (09:13)
[2023-06-16] MEDS: BUDESONIDE/FORMETEROL FUMARATE 160/4.5 mcg INHALER IH SCH ×2 (09:14→22:25)
[2023-06-16] MEDS: sitaGLIPtin PHOSPHATE 50 MG TABLET PO SCH (13:04)
[2023-06-16] MEDS: INSULIN SLIDING SCALE (NOVOLOG) 1 VIAL SQ SCH (16:43)
[2023-06-17] MEDS: sitaGLIPtin PHOSPHATE 50 MG TABLET PO SCH (06:10)
[2023-06-17] MEDS: GABAPENTIN 300 MG CAPSULE PO SCH ×3 (06:10→21:47)
[2023-06-17] MEDS: methylPREDNISolone NA SUCC 40 MG/1 ML VIAL IVPUSH SCH ×3 (06:13→21:47)
[2023-06-17] MEDS: INSULIN SLIDING SCALE (NOVOLOG) 1 VIAL SQ SCH ×3 (06:17→16:45)
[2023-06-17 07:37] LABS: POTASSIUM 4.3 mmol/L (3.5-5.1)
[2023-06-17 07:39] LABS: ALBUMIN 2.9 g/dl (3.4-5.0); CALCIUM 9.1 mg/dL (8.5-10.1)
[2023-06-17 07:42] LABS: CREATININE 0.8 mg/dL (0.55-1.3)
[2023-06-17 07:44] LABS: BILIRUBIN,TOTAL 0.4 mg/dL (0.2-1); TOT PROT 7.5 g/dl (6.4-8.2)
[2023-06-17 09:05] LABS: HEMATOCRIT 39.4 % (32.4-45.2); HEMOGLOBIN 12.2 GM/dL (10.7-15.3); MCH 22.6 pg (25.7-33.7); MCHC 30.9 g/dl (32.0-36.0); MEAN PLT VOLUME 8.7 fl (7.5-11.1); PLATELET COUNT 309 10^3/uL (134-434); RBC 5.39 M/mm3 (3.60-5.2); RDW 15.9 % (11.6-15.6); WHITE BLOOD COUNT 10.1 K/mm3 (4.0-10.0)
[2023-06-17] MEDS: MEMANTINE HCL 5 MG TABLET (UD) PO SCH ×2 (09:50→21:47)
[2023-06-17] MEDS: BUDESONIDE/FORMETEROL FUMARATE 160/4.5 mcg INHALER IH SCH (09:50)
[2023-06-17] MEDS: AZITHROMYCIN 250 MG TABLET PO SCH (09:50)
[2023-06-17] MEDS: FUROSEMIDE 40 MG TABLET (FP) PO SCH (09:50)
[2023-06-17] MEDS: CARVEDILOL 3.125 MG TABLET (FP) PO SCH ×2 (09:50→21:47)
[2023-06-17] MEDS: PANTOPRAZOLE 40 MG TABLET PO SCH (09:50)
[2023-06-17 10:06] LABS: ANISOCYTOSIS 2+; MACROCYTOSIS 0
[2023-06-17] MEDS: guaiFENesin 200 MG/10 ML 10 ML UNIT-DOSE CUPS PO PRN (12:39)
[2023-06-18] MEDS: BUDESONIDE/FORMETEROL FUMARATE 160/4.5 mcg INHALER IH SCH ×2 (02:08→09:13)
[2023-06-18] MEDS: INSULIN SLIDING SCALE (NOVOLOG) 1 VIAL SQ SCH ×3 (06:37→17:11)
[2023-06-18] MEDS: sitaGLIPtin PHOSPHATE 50 MG TABLET PO SCH (06:37)
[2023-06-18] MEDS: GABAPENTIN 300 MG CAPSULE PO SCH ×2 (06:37→13:53)
[2023-06-18] MEDS: CARVEDILOL 3.125 MG TABLET (FP) PO SCH (09:12)
[2023-06-18] MEDS: AZITHROMYCIN 250 MG TABLET PO SCH (09:12)
[2023-06-18] MEDS: methylPREDNISolone NA SUCC 40 MG/1 ML VIAL IVPUSH SCH (09:12)
[2023-06-18] MEDS: MEMANTINE HCL 5 MG TABLET (UD) PO SCH (09:12)
[2023-06-18] MEDS: FUROSEMIDE 40 MG TABLET (FP) PO SCH (09:12)
[2023-06-18] MEDS: guaiFENesin 200 MG/10 ML 10 ML UNIT-DOSE CUPS PO PRN (09:12)
[2023-06-18] MEDS: PANTOPRAZOLE 40 MG TABLET PO SCH (09:12)
[2023-06-18 15:36] VITALS: RESP 18
[2023-06-18 17:56] VITALS: BP 129/60; PULSE 61; TEMP 98.4
[2023-06-19] MEDS ORDERED: methylPREDNISolone NA SUCC 40 MG/1 ML VIAL IVPUSH SCH (10:00)
== END 2023-06-18 18:24 | disposition home or self-care (01) ==
LOC: JER 11:28 → JERBED 16:07 → J4S 06-13 04:34
PROVIDERS: ADMIT Internal Medicine; ATTEND Internal Medicine
PROC: 3E033NZ Introduction of Analgesics, Hypnotics, Sedatives into Peripheral Vein, Percutaneous Approach (ICD-10-PCS; principal; 2023-06-12)
PROC: 3E033GC Introduction of Other Therapeutic Substance into Peripheral Vein, Percutaneous Approach (ICD-10-PCS; 2023-06-12)
PROC: 3E013VG Introduction of Insulin into Subcutaneous Tissue, Percutaneous Approach (ICD-10-PCS; 2023-06-12)
PROC: 3E033GC Introduction of Other Therapeutic Substance into Peripheral Vein, Percutaneous Approach (ICD-10-PCS; 2023-06-12)
PROC: 3E03329 Introduction of Other Anti-infective into Peripheral Vein, Percutaneous Approach (ICD-10-PCS; 2023-06-12)
DX: J84.9 Interstitial pulmonary disease, unspecified (principal); R09.02 Hypoxemia; I11.0 Hypertensive heart disease with heart failure; I50.30 Unspecified diastolic (congestive) heart failure; E78.5 Hyperlipidemia, unspecified; J44.9 Chronic obstructive pulmonary disease, unspecified; G47.30 Sleep apnea, unspecified; I21.4 Non-ST elevation (NSTEMI) myocardial infarction; E03.9 Hypothyroidism, unspecified; Z85.3 Personal history of malignant neoplasm of breast; Z90.10 Acquired absence of unspecified breast and nipple; E11.9 Type 2 diabetes mellitus without complications; Z99.81 Dependence on supplemental oxygen; R06.02 Shortness of breath
CPT/HCPCS: 0241U-QW; 36415; 36600; 71045-TC-FY; 74230-TC-FY; 80053; 81003; 82803; 82962; 83880; 84439; 84443; 84484; 85025; 87040; 87086; 87899; 92611-GN; 93005; 93010; 96365; 96367; 96368; 96372; 96375; 96376; 99285-25; G0378

== ENCOUNTER 2023-06-23 09:09 | Emergency (ER) | payer OTHER ==
[2023-06-23 09:21] VITALS: PULSE 61; RESP 18; BMI 26.6
[2023-06-23] MEDS ORDERED: ACETAMINOPHEN 500 MG TABLET (FP) PO ONE (10:00)
[2023-06-23] MEDS ORDERED: ACETAMINOPHEN 325 MG TABLET (FP) ONE (10:10)
[2023-06-23 10:13] LABS: EPI CELLS 9 /uL (0-25.1); HYALINE CASTS 0 /uL (0-3.1); PH,URINE 7.5 (5.0-8.0); URINE APPEARANCE TURBID; URINE BACTERIA 162 /uL (0-1359); URINE BILIRUBIN NEGATIVE (NEGATIVE); URINE COLOR DK YELLOW; URINE GLUCOSE (UA) NEGATIVE (NEGATIVE); URINE KETONE NEGATIVE (NEGATIVE); URINE LEUK ESTERASE TRACE (NEGATIVE); URINE NITRITE NEGATIVE (NEGATIVE); URINE PROTEIN NEGATIVE (NEGATIVE); URINE RBC 36 /uL (0-23.9); URINE WBC 8 /uL (0-25.8)
[2023-06-23] MEDS ORDERED: ACYCLOVIR INJECTION 600 MG in DEXTROSE 5%-WATER - 100 ML IVPB ONE (11:27)
[2023-06-23 12:05] LABS: BASO % 0.3 % (0-2.0); EOS % 0.5 % (0-4.5); HEMATOCRIT 43.4 % (32.4-45.2); HEMOGLOBIN 13.5 GM/dL (10.7-15.3); LYMPH % 12.1 % (8-40); MCH 22.8 pg (25.7-33.7); MCHC 31.2 g/dl (32.0-36.0); MEAN CELL VOLUME 72.9 fl (80-96); MEAN PLT VOLUME 8.8 fl (7.5-11.1); MONO % 4.6 % (3.8-10.2); NEUT % 82.5 % (42.8-82.8); PLATELET COUNT 295 10^3/uL (134-434); RBC 5.95 M/mm3 (3.60-5.2); RDW 15.9 % (11.6-15.6); WHITE BLOOD COUNT 13.9 K/mm3 (4.0-10.0)
[2023-06-23] MEDS ORDERED: SODIUM CHLORIDE 0.9% 500 ML INFUS.BAG IV ONE (12:12)
[2023-06-23 12:22] LABS: POTASSIUM 4.4 mmol/L (3.5-5.1)
[2023-06-23 12:24] LABS: CALCIUM 8.8 mg/dL (8.5-10.1)
[2023-06-23 12:25] LABS: ALBUMIN 2.9 g/dl (3.4-5.0)
[2023-06-23 12:28] LABS: CREATININE 0.7 mg/dL (0.55-1.3)
[2023-06-23 12:30] LABS: BILIRUBIN,TOTAL 0.7 mg/dL (0.2-1); TOT PROT 7.2 g/dl (6.4-8.2)
[2023-06-23 14:11] VITALS: BP 111/53; TEMP 98.9
== END 2023-06-23 14:43 | disposition home or self-care (01) ==
LOC: JER 09:09
DX: R10.31 Right lower quadrant pain (principal); M54.9 Dorsalgia, unspecified; L29.9 Pruritus, unspecified; B02.8 Zoster with other complications; R10.32 Left lower quadrant pain; R21 Rash and other nonspecific skin eruption
CPT/HCPCS: 36415; 71045-TC-FY; 80053; 81003; 85025; 87086; 87186; 93005; 93010; 99285-25

== ENCOUNTER 2023-06-26 03:44 | Inpatient (IN) | payer OTHER ==
[2023-06-26 04:59] LABS: INR 0.98 (0.83-1.09); PROTHROMBIN TIME (PATIENT) 11.4 SEC (9.7-13.0)
[2023-06-26 05:02] LABS: ACTIVATED PTT 25.2 SECONDS (25.2-36.5)
[2023-06-26 05:09] LABS: CALCIUM 8.2 mg/dL (8.5-10.1)
[2023-06-26 05:10] LABS: BLOOD UREA NITROGEN 20.2 mg/dL (7-18)
[2023-06-26 05:13] LABS: CREATININE 0.8 mg/dL (0.55-1.3)
[2023-06-26 05:14] LABS: BILIRUBIN,TOTAL 0.6 mg/dL (0.2-1); TOT PROT 7.2 g/dl (6.4-8.2)
[2023-06-26 05:17] LABS: N-TERMINAL BNP 573.3 pg/ml (5-450)
[2023-06-26 05:52] LABS: BASO % 0.5 % (0-2.0); EOS % 0.2 % (0-4.5); HEMATOCRIT 42.7 % (32.4-45.2); HEMOGLOBIN 13.1 GM/dL (10.7-15.3); LYMPH % 13.8 % (8-40); MCHC 30.8 g/dl (32.0-36.0); MEAN CELL VOLUME 74.7 fl (80-96); MEAN PLT VOLUME 9.1 fl (7.5-11.1); MONO % 4.8 % (3.8-10.2); NEUT % 80.7 % (42.8-82.8); PLATELET COUNT 233 10^3/uL (134-434); RBC 5.71 M/mm3 (3.60-5.2); RDW 16.2 % (11.6-15.6); WHITE BLOOD COUNT 13.3 K/mm3 (4.0-10.0)
[2023-06-26] MEDS ORDERED: CEFTRIAXONE 1,000 MG in DEXTROSE 5%-WATER - 50 ML IVPB ONE (11:55)
[2023-06-26] MEDS ORDERED: AZITHROMYCIN IVPB 500 MG in DEXTROSE 5%-WATER - 250 ML IVPB ONE (11:55)
[2023-06-26] MEDS ORDERED: ACETAMINOPHEN 325 MG TABLET (FP) PO PRN (12:09)
[2023-06-26] MEDS ORDERED: ALBUTEROL SO4 0.083% IH SOL 2.5 MG/3 ML VIAL.NEB. NEB PRN (12:09)
[2023-06-26] MEDS ORDERED: AZITHROMYCIN IVPB 500 MG/250 ML BAG IVPB ONE (13:15)
[2023-06-26] MEDS ORDERED: GABAPENTIN 300 MG CAPSULE ONE (13:15)
[2023-06-26] MEDS ORDERED: CEFTRIAXONE 1 GM/50 ML BAG ONE (13:15)
[2023-06-26] MEDS: GABAPENTIN 300 MG CAPSULE PO SCH ×2 (15:26→21:58)
[2023-06-26 16:04] VITALS: BMI 28.7
[2023-06-26 19:44] LABS: URINE APPEARANCE TURBID; URINE BILIRUBIN NEGATIVE (NEGATIVE); URINE COLOR YELLOW; URINE GLUCOSE (UA) NEGATIVE (NEGATIVE); URINE KETONE NEGATIVE (NEGATIVE); URINE LEUK ESTERASE NEGATIVE (NEGATIVE); URINE NITRITE NEGATIVE (NEGATIVE); URINE PROTEIN NEGATIVE (NEGATIVE)
[2023-06-26] MEDS: ATORVASTATIN CA 40 MG TABLET (FP) PO SCH (21:58)
[2023-06-26] MEDS: CARVEDILOL 3.125 MG TABLET (FP) PO SCH (21:58)
[2023-06-26] MEDS: metFORMIN HCL 500 MG TABLET (FP) PO SCH (21:58)
[2023-06-27] MEDS: GABAPENTIN 300 MG CAPSULE PO SCH ×3 (05:51→22:08)
[2023-06-27] MEDS: LEVOTHYROXINE NA 75 MCG TABLET (FP) PO SCH (06:01)
[2023-06-27] MEDS: LEVOTHYROXINE NA 100 MCG TABLET (FP) PO SCH (06:01)
[2023-06-27] MEDS: glipiZIDE-XL 10 MG TAB.ER.24 (FP) PO SCH (08:02)
[2023-06-27 08:25] LABS: POTASSIUM 3.9 mmol/L (3.5-5.1)
[2023-06-27 08:28] LABS: BASO % 0.4 % (0-2.0); EOS % 1.3 % (0-4.5); HEMATOCRIT 42.8 % (32.4-45.2); LYMPH % 15.4 % (8-40); MCH 22.8 pg (25.7-33.7); MCHC 30.3 g/dl (32.0-36.0); MEAN CELL VOLUME 75.2 fl (80-96); MEAN PLT VOLUME 9.2 fl (7.5-11.1); MONO % 6.6 % (3.8-10.2); NEUT % 76.3 % (42.8-82.8); PLATELET COUNT 198 10^3/uL (134-434); RDW 16.4 % (11.6-15.6); WHITE BLOOD COUNT 11.2 K/mm3 (4.0-10.0)
[2023-06-27 08:34] LABS: ALBUMIN 2.6 g/dl (3.4-5.0); BLOOD UREA NITROGEN 20.2 mg/dL (7-18)
[2023-06-27 08:37] LABS: BILIRUBIN,TOTAL 0.8 mg/dL (0.2-1); CREATININE 0.7 mg/dL (0.55-1.3)
[2023-06-27 08:38] LABS: TOT PROT 6.4 g/dl (6.4-8.2)
[2023-06-27] MEDS: ASPIRIN COATED 81 MG TABLET.EC PO SCH (09:11)
[2023-06-27] MEDS: metFORMIN HCL 500 MG TABLET (FP) PO SCH ×2 (09:11→22:08)
[2023-06-27] MEDS: MONTELUKAST NA 10 MG TABLET PO SCH (09:11)
[2023-06-27] MEDS: FLUTICASONE/UMECLIDIN/VILANTER(200-62.5-25 TRELEGY ELLIPTA) INAHLER IH SCH (09:11)
[2023-06-27] MEDS: FUROSEMIDE 40 MG TABLET (FP) PO SCH (09:11)
[2023-06-27] MEDS: RAMIPRIL 2.5 MG CAPSULE PO SCH (09:11)
[2023-06-27] MEDS: CARVEDILOL 3.125 MG TABLET (FP) PO SCH ×2 (09:11→22:08)
[2023-06-27] MEDS: AZITHROMYCIN 250 MG TABLET PO SCH (11:09)
[2023-06-27] MEDS: methylPREDNISolone NA SUCC 40 MG/1 ML VIAL IVPUSH SCH ×2 (11:09→17:09)
[2023-06-27] MEDS: CEFTRIAXONE 1 GM in DEXTROSE 5%-WATER - 50 ML IVPB SCH (11:09)
[2023-06-27 11:20] LABS: ARTERIAL BLD GAS O2 SATURATION 91.9 % (95-98); ARTERIAL BLOOD GAS BASE EXCESS 5.7 mmol/L (-2-2); ARTERIAL BLOOD GAS PO2 63.5 mmHg (80-100); ARTERIAL BLOOD GAS pH 7.399 (7.350-7.450)
[2023-06-27 11:23] LABS: ALLENS TEST POSITIVE
[2023-06-27] MEDS ORDERED: INSULIN (NOVOLOG) ASPART 100 UNITS/ML 10ML VIAL SQ ONE (16:36)
[2023-06-27] MEDS: INSULIN SLIDING SCALE (NOVOLOG) 1 VIAL SQ SCH (16:53)
[2023-06-27] MEDS: ATORVASTATIN CA 40 MG TABLET (FP) PO SCH (22:08)
[2023-06-28] MEDS: methylPREDNISolone NA SUCC 40 MG/1 ML VIAL IVPUSH SCH ×3 (01:49→21:17)
[2023-06-28] MEDS: INSULIN SLIDING SCALE (NOVOLOG) 1 VIAL SQ SCH ×3 (06:31→17:07)
[2023-06-28] MEDS: GABAPENTIN 300 MG CAPSULE PO SCH ×3 (06:32→21:17)
[2023-06-28] MEDS: LEVOTHYROXINE NA 75 MCG TABLET (FP) PO SCH (06:32)
[2023-06-28] MEDS: LEVOTHYROXINE NA 100 MCG TABLET (FP) PO SCH (06:32)
[2023-06-28] MEDS: CEFTRIAXONE 1 GM in DEXTROSE 5%-WATER - 50 ML IVPB SCH (10:00)
[2023-06-28] MEDS: CARVEDILOL 3.125 MG TABLET (FP) PO SCH ×2 (10:01→21:16)
[2023-06-28] MEDS: metFORMIN HCL 500 MG TABLET (FP) PO SCH ×2 (10:01→21:16)
[2023-06-28] MEDS: FUROSEMIDE 40 MG TABLET (FP) PO SCH (10:01)
[2023-06-28] MEDS: AZITHROMYCIN 250 MG TABLET PO SCH (10:01)
[2023-06-28] MEDS: ASPIRIN COATED 81 MG TABLET.EC PO SCH (10:01)
[2023-06-28] MEDS: MONTELUKAST NA 10 MG TABLET PO SCH (10:01)
[2023-06-28] MEDS: RAMIPRIL 2.5 MG CAPSULE PO SCH (10:02)
[2023-06-28] MEDS: glipiZIDE-XL 10 MG TAB.ER.24 (FP) PO SCH (10:02)
[2023-06-28] MEDS: FLUTICASONE/UMECLIDIN/VILANTER(200-62.5-25 TRELEGY ELLIPTA) INAHLER IH SCH (12:05)
[2023-06-28] MEDS: ATORVASTATIN CA 40 MG TABLET (FP) PO SCH (21:16)
[2023-06-29] MEDS: INSULIN SLIDING SCALE (NOVOLOG) 1 VIAL SQ SCH ×3 (06:17→17:25)
[2023-06-29] MEDS: GABAPENTIN 300 MG CAPSULE PO SCH ×3 (06:28→22:19)
[2023-06-29] MEDS: LEVOTHYROXINE NA 75 MCG TABLET (FP) PO SCH (06:28)
[2023-06-29] MEDS: LEVOTHYROXINE NA 100 MCG TABLET (FP) PO SCH (06:31)
[2023-06-29] MEDS: glipiZIDE-XL 10 MG TAB.ER.24 (FP) PO SCH (07:58)
[2023-06-29] MEDS: metFORMIN HCL 500 MG TABLET (FP) PO SCH ×2 (10:13→22:19)
[2023-06-29] MEDS: MONTELUKAST NA 10 MG TABLET PO SCH (10:14)
[2023-06-29] MEDS: CEFTRIAXONE 1 GM in DEXTROSE 5%-WATER - 50 ML IVPB SCH (10:14)
[2023-06-29] MEDS: AZITHROMYCIN 250 MG TABLET PO SCH (10:14)
[2023-06-29] MEDS: methylPREDNISolone NA SUCC 40 MG/1 ML VIAL IVPUSH SCH (10:14)
[2023-06-29] MEDS: ASPIRIN COATED 81 MG TABLET.EC PO SCH (10:14)
[2023-06-29] MEDS: FLUTICASONE/UMECLIDIN/VILANTER(200-62.5-25 TRELEGY ELLIPTA) INAHLER IH SCH (10:15)
[2023-06-29] MEDS: CARVEDILOL 3.125 MG TABLET (FP) PO SCH ×2 (10:15→22:19)
[2023-06-29] MEDS: FUROSEMIDE 40 MG TABLET (FP) PO SCH (10:15)
[2023-06-29] MEDS: RAMIPRIL 2.5 MG CAPSULE PO SCH (10:15)
[2023-06-29] MEDS: ATORVASTATIN CA 40 MG TABLET (FP) PO SCH (22:19)
[2023-06-30] MEDS: LEVOTHYROXINE NA 100 MCG TABLET (FP) PO SCH (06:21)
[2023-06-30] MEDS: GABAPENTIN 300 MG CAPSULE PO SCH ×3 (06:22→21:08)
[2023-06-30] MEDS: LEVOTHYROXINE NA 75 MCG TABLET (FP) PO SCH (06:22)
[2023-06-30] MEDS: INSULIN SLIDING SCALE (NOVOLOG) 1 VIAL SQ SCH ×3 (07:16→17:16)
[2023-06-30] MEDS: glipiZIDE-XL 10 MG TAB.ER.24 (FP) PO SCH (07:50)
[2023-06-30] MEDS: ASPIRIN COATED 81 MG TABLET.EC PO SCH (09:39)
[2023-06-30] MEDS: AZITHROMYCIN 250 MG TABLET PO SCH (09:39)
[2023-06-30] MEDS: FUROSEMIDE 40 MG TABLET (FP) PO SCH (09:39)
[2023-06-30] MEDS: methylPREDNISolone NA SUCC 40 MG/1 ML VIAL IVPUSH SCH ×2 (09:39→20:26)
[2023-06-30] MEDS: CARVEDILOL 3.125 MG TABLET (FP) PO SCH ×2 (09:40→21:08)
[2023-06-30] MEDS: RAMIPRIL 2.5 MG CAPSULE PO SCH (09:40)
[2023-06-30] MEDS: metFORMIN HCL 500 MG TABLET (FP) PO SCH ×2 (09:40→21:08)
[2023-06-30] MEDS: FLUTICASONE/UMECLIDIN/VILANTER(200-62.5-25 TRELEGY ELLIPTA) INAHLER IH SCH (09:40)
[2023-06-30] MEDS: MONTELUKAST NA 10 MG TABLET PO SCH (09:40)
[2023-06-30] MEDS: CEFTRIAXONE 1 GM in DEXTROSE 5%-WATER - 50 ML IVPB SCH (09:41)
[2023-06-30] MEDS: ATORVASTATIN CA 40 MG TABLET (FP) PO SCH (21:09)
[2023-06-30] MEDS ORDERED: HYDROCORTISONE 0.5% TOPICAL CREAM 30 GM TUBE TP PRN (23:23)
[2023-06-30] MEDS ORDERED: diphenhydrAMINE HCL 25 MG CAPSULE (FP) PO ONE (23:30)
[2023-07-01] MEDS: GABAPENTIN 300 MG CAPSULE PO SCH (06:55)
[2023-07-01] MEDS: LEVOTHYROXINE NA 75 MCG TABLET (FP) PO SCH (06:55)
[2023-07-01] MEDS: LEVOTHYROXINE NA 100 MCG TABLET (FP) PO SCH (06:55)
[2023-07-01] MEDS: INSULIN SLIDING SCALE (NOVOLOG) 1 VIAL SQ SCH (06:55)
[2023-07-01] MEDS: glipiZIDE-XL 10 MG TAB.ER.24 (FP) PO SCH (09:00)
[2023-07-01] MEDS: AZITHROMYCIN 250 MG TABLET PO SCH (09:02)
[2023-07-01] MEDS: metFORMIN HCL 500 MG TABLET (FP) PO SCH (09:02)
[2023-07-01] MEDS: FUROSEMIDE 40 MG TABLET (FP) PO SCH (09:02)
[2023-07-01] MEDS: ASPIRIN COATED 81 MG TABLET.EC PO SCH (09:02)
[2023-07-01] MEDS: CEFTRIAXONE 1 GM in DEXTROSE 5%-WATER - 50 ML IVPB SCH (09:02)
[2023-07-01] MEDS: CARVEDILOL 3.125 MG TABLET (FP) PO SCH (09:02)
[2023-07-01] MEDS: MONTELUKAST NA 10 MG TABLET PO SCH (09:02)
[2023-07-01] MEDS: methylPREDNISolone NA SUCC 40 MG/1 ML VIAL IVPUSH SCH (09:02)
[2023-07-01] MEDS: FLUTICASONE/UMECLIDIN/VILANTER(200-62.5-25 TRELEGY ELLIPTA) INAHLER IH SCH (09:03)
[2023-07-01 11:01] VITALS: BP 116/60; PULSE 71; RESP 18; TEMP 98.2
== END 2023-07-01 11:00 | disposition home or self-care (01) | DRG 191 ==
LOC: JER 03:44 → JERBED 12:10 → J4S 14:15 → OBSVTOIN 06-29 14:19
PROVIDERS: ADMIT Internal Medicine; ATTEND Internal Medicine
DX: J44.1 Chronic obstructive pulmonary disease with (acute) exacerbation (principal); I24.89 Other forms of acute ischemic heart disease; J96.11 Chronic respiratory failure with hypoxia; J96.12 Chronic respiratory failure with hypercapnia; I50.32 Chronic diastolic (congestive) heart failure; I11.0 Hypertensive heart disease with heart failure; E11.42 Type 2 diabetes mellitus with diabetic polyneuropathy; F03.90 Unspecified dementia, unspecified severity, without behavioral disturbance, psychotic disturbance, mood disturbance, and anxiety; E03.9 Hypothyroidism, unspecified; I27.20 Pulmonary hypertension, unspecified; I25.10 Atherosclerotic heart disease of native coronary artery without angina pectoris; E78.5 Hyperlipidemia, unspecified; I25.119 Atherosclerotic heart disease of native coronary artery with unspecified angina pectoris; Z99.81 Dependence on supplemental oxygen
CPT/HCPCS: 0241U-QW; 36415; 36600; 71045-TC-FY; 71275-TC; 80053; 81003; 82550; 82803; 82962; 83880; 84439; 84443; 84484; 85025; 85610; 85730; 87086; 87186; 93005; 93010; 97116-GP; 97161-GP; 99285-25; G0378; Q9967

== ENCOUNTER 2023-07-25 08:16 | Observation (INO) | payer OTHER ==
[2023-07-25 09:04] VITALS: BMI 28.5
[2023-07-25 10:11] LABS: VENOUS BASE EXCESS 7.5 mmol/L (-2-2); VENOUS PCO2 57.2 mmHg (38-52); VENOUS PH 7.396 (7.310-7.410)
[2023-07-25 10:24] LABS: BASO % 0.4 % (0-2.0); EOS % 0.5 % (0-4.5); HEMATOCRIT 41.6 % (32.4-45.2); LYMPH % 12.3 % (8-40); MCH 23.3 pg (25.7-33.7); MCHC 31.3 g/dl (32.0-36.0); MEAN CELL VOLUME 74.2 fl (80-96); MEAN PLT VOLUME 7.9 fl (7.5-11.1); MONO % 4.7 % (3.8-10.2); NEUT % 82.1 % (42.8-82.8); PLATELET COUNT 244 10^3/uL (134-434); RBC 5.61 M/mm3 (3.60-5.2); RDW 20.3 % (11.6-15.6); WHITE BLOOD COUNT 12.3 K/mm3 (4.0-10.0)
[2023-07-25 10:35] LABS: POTASSIUM 4.7 mmol/L (3.5-5.1)
[2023-07-25 10:37] LABS: ALBUMIN 2.6 g/dl (3.4-5.0); BLOOD UREA NITROGEN 12.9 mg/dL (7-18); CALCIUM 9.2 mg/dL (8.5-10.1)
[2023-07-25 10:40] LABS: CREATININE 0.7 mg/dL (0.55-1.3)
[2023-07-25 10:42] LABS: TOT PROT 7.1 g/dl (6.4-8.2)
[2023-07-25] MEDS ORDERED: SODIUM CHLORIDE 0.9% 500 ML INFUS.BAG IV ONE ×2 (11:39→13:49)
[2023-07-25 13:32] LABS: EPI CELLS >36 /uL (0-25.1); HYALINE CASTS 1 /uL (0-3.1); URINE APPEARANCE CLEAR; URINE BACTERIA 213 /uL (0-1359); URINE BILIRUBIN 1+ (NEGATIVE); URINE COLOR DK YELLOW; URINE GLUCOSE (UA) NEGATIVE (NEGATIVE); URINE KETONE NEGATIVE (NEGATIVE); URINE LEUK ESTERASE TRACE (NEGATIVE); URINE NITRITE NEGATIVE (NEGATIVE); URINE PROTEIN TRACE (NEGATIVE); URINE RBC 11 /uL (0-23.9); URINE WBC 32 /uL (0-25.8)
[2023-07-25] MEDS ORDERED: ALBUTEROL SO4 HFA INHALER IH PRN (16:54)
[2023-07-25] MEDS ORDERED: CARVEDILOL 3.125 MG TABLET (FP) ONE (21:14)
[2023-07-25] MEDS: CARVEDILOL 3.125 MG TABLET (FP) PO SCH (21:29)
[2023-07-26] MEDS: LEVOTHYROXINE 75 MCG, LEVOTHYROXINE 100 MCG PO SCH (08:26)
[2023-07-26] MEDS ORDERED: FUROSEMIDE 40 MG TABLET (FP) PO SCH (10:00)
[2023-07-26] MEDS ORDERED: PATIENT'S OWN MEDICATION (NON-FORMULARY) (Levothyroxine Sodium [Levothyroxine Sodium] 175 PO SCH (10:00)
[2023-07-26] MEDS: RAMIPRIL 2.5 MG CAPSULE PO SCH (10:21)
[2023-07-26] MEDS: FLUTICASONE/UMECLIDIN/VILANTER(200-62.5-25 TRELEGY ELLIPTA) INAHLER IH SCH (10:22)
[2023-07-26] MEDS: FUROSEMIDE 40 MG/4 ML INJECTABLE VIAL IVPUSH SCH (10:22)
[2023-07-26] MEDS: CARVEDILOL 3.125 MG TABLET (FP) PO SCH ×2 (10:22→22:14)
[2023-07-26] MEDS: ASPIRIN COATED 81 MG TABLET.EC PO SCH (10:22)
[2023-07-27 06:32] VITALS: TEMP 97.9
[2023-07-27] MEDS: LEVOTHYROXINE 75 MCG, LEVOTHYROXINE 100 MCG PO SCH (08:20)
[2023-07-27 08:46] VITALS: BP 98/66; PULSE 90; RESP 20
[2023-07-27] MEDS: FUROSEMIDE 40 MG/4 ML INJECTABLE VIAL IVPUSH SCH (09:04)
[2023-07-27] MEDS: CARVEDILOL 3.125 MG TABLET (FP) PO SCH (09:04)
[2023-07-27] MEDS: FLUTICASONE/UMECLIDIN/VILANTER(200-62.5-25 TRELEGY ELLIPTA) INAHLER IH SCH (09:04)
[2023-07-27] MEDS: RAMIPRIL 2.5 MG CAPSULE PO SCH (09:04)
[2023-07-27] MEDS: ASPIRIN COATED 81 MG TABLET.EC PO SCH (09:04)
[2023-07-27 10:07] LABS: HEMATOCRIT 41.2 % (32.4-45.2); HEMOGLOBIN 12.8 GM/dL (10.7-15.3); MCH 23.6 pg (25.7-33.7); MCHC 31.1 g/dl (32.0-36.0); MEAN CELL VOLUME 76.1 fl (80-96); PLATELET COUNT 229 10^3/uL (134-434); RBC 5.41 M/mm3 (3.60-5.2); RDW 20.5 % (11.6-15.6); WHITE BLOOD COUNT 11.7 K/mm3 (4.0-10.0)
[2023-07-27 10:25] LABS: POTASSIUM 3.9 mmol/L (3.5-5.1)
[2023-07-27 10:27] LABS: CALCIUM 8.7 mg/dL (8.5-10.1)
[2023-07-27 10:28] LABS: ALBUMIN 2.7 g/dl (3.4-5.0); BLOOD UREA NITROGEN 16.1 mg/dL (7-18)
[2023-07-27 10:31] LABS: CREATININE 0.8 mg/dL (0.55-1.3)
[2023-07-27 10:33] LABS: TOT PROT 7.2 g/dl (6.4-8.2)
[2023-07-27 10:52] LABS: ANISOCYTOSIS 1+; MACROCYTOSIS 0
== END 2023-07-27 19:30 | disposition home or self-care (01) ==
LOC: JER 08:16 → JERBED 14:58
PROVIDERS: ADMIT Internal Medicine; ATTEND Internal Medicine
PROC: 3E033GC Introduction of Other Therapeutic Substance into Peripheral Vein, Percutaneous Approach (ICD-10-PCS; principal; 2023-07-25)
PROC: 3E0337Z Introduction of Electrolytic and Water Balance Substance into Peripheral Vein, Percutaneous Approach (ICD-10-PCS; 2023-07-25)
DX: I50.32 Chronic diastolic (congestive) heart failure (principal); I24.89 Other forms of acute ischemic heart disease; J84.9 Interstitial pulmonary disease, unspecified; J44.9 Chronic obstructive pulmonary disease, unspecified; E78.5 Hyperlipidemia, unspecified; R77.8 Other specified abnormalities of plasma proteins; F03.90 Unspecified dementia, unspecified severity, without behavioral disturbance, psychotic disturbance, mood disturbance, and anxiety; G47.33 Obstructive sleep apnea (adult) (pediatric); E03.9 Hypothyroidism, unspecified; I21.4 Non-ST elevation (NSTEMI) myocardial infarction; J40 Bronchitis, not specified as acute or chronic; E11.9 Type 2 diabetes mellitus without complications; Z09 Encounter for follow-up examination after completed treatment for conditions other than malignant neoplasm; Z99.81 Dependence on supplemental oxygen; Z86.61 Personal history of infections of the central nervous system; I50.9 Heart failure, unspecified; Z90.10 Acquired absence of unspecified breast and nipple; Z85.3 Personal history of malignant neoplasm of breast
CPT/HCPCS: 0241U-QW; 36415; 71045-TC-FY; 80053; 81003; 82375; 82803; 82962; 83880; 84484; 85025; 87086; 93005; 93010; 96374; 99285-25; G0378

== ENCOUNTER 2023-07-31 11:52 | Inpatient (IN) | payer OTHER ==
[2023-07-31 12:15] VITALS: BMI 29.5
[2023-07-31] MEDS ORDERED: ACETAMINOPHEN 1000 MG/100 ML BAG IVPB ONE (13:18)
[2023-07-31 13:55] LABS: VENOUS BASE EXCESS 6.5 mmol/L (-2-2); VENOUS O2 SATURATION 59.5 % (70-80); VENOUS PCO2 54.4 mmHg (38-52); VENOUS PH 7.399 (7.310-7.410)
[2023-07-31 14:03] LABS: BASO % 0.8 % (0-2.0); EOS % 0.9 % (0-4.5); HEMATOCRIT 37.6 % (32.4-45.2); LYMPH % 19.3 % (8-40); MCH 24.3 pg (25.7-33.7); MCHC 31.8 g/dl (32.0-36.0); MEAN CELL VOLUME 76.5 fl (80-96); MEAN PLT VOLUME 8.2 fl (7.5-11.1); MONO % 4.8 % (3.8-10.2); NEUT % 74.2 % (42.8-82.8); PLATELET COUNT 198 10^3/uL (134-434); RBC 4.92 M/mm3 (3.60-5.2); RDW 21.2 % (11.6-15.6); WHITE BLOOD COUNT 9.1 K/mm3 (4.0-10.0)
[2023-07-31 14:06] LABS: INR 1.1 (0.83-1.09); PROTHROMBIN TIME (PATIENT) 12.8 SEC (9.7-13.0)
[2023-07-31 14:09] LABS: ACTIVATED PTT 32.3 SECONDS (25.2-36.5)
[2023-07-31] MEDS ORDERED: LACTATED RINGERS SOLUTION 1000 ML INFUS.BAG IV ONE (14:12)
[2023-07-31] MEDS ORDERED: ACETAMINOPHEN INJECTION 100 ML IVPB ONE (14:13)
[2023-07-31] MEDS: LACTATED RINGERS SOLUTION 1000 ML INFUS.BAG IV ONE ×2 (14:23→14:24)
[2023-07-31 14:35] LABS: POTASSIUM 3.5 mmol/L (3.5-5.1)
[2023-07-31 14:37] LABS: CALCIUM 8.6 mg/dL (8.5-10.1)
[2023-07-31 14:38] LABS: ALBUMIN 2.6 g/dl (3.4-5.0); BLOOD UREA NITROGEN 10.8 mg/dL (7-18)
[2023-07-31 14:41] LABS: CREATININE 0.7 mg/dL (0.55-1.3)
[2023-07-31 14:43] LABS: BILIRUBIN,TOTAL 0.6 mg/dL (0.2-1); TOT PROT 7.2 g/dl (6.4-8.2)
[2023-07-31 15:01] LABS: ANISOCYTOSIS 3+; MACROCYTOSIS 0
[2023-07-31 15:01] LABS: URINE APPEARANCE CLEAR; URINE BILIRUBIN NEGATIVE (NEGATIVE); URINE COLOR YELLOW; URINE GLUCOSE (UA) NEGATIVE (NEGATIVE); URINE KETONE NEGATIVE (NEGATIVE); URINE LEUK ESTERASE NEGATIVE (NEGATIVE); URINE NITRITE NEGATIVE (NEGATIVE); URINE PROTEIN NEGATIVE (NEGATIVE)
[2023-07-31] MEDS ORDERED: ASPIRIN 81 MG CHEWABLE TABLETS PO ONE (15:10)
[2023-07-31] MEDS ORDERED: ASPIRIN 81 MG CHEWABLE TABLETS ONE (15:56)
[2023-07-31] MEDS ORDERED: ALBUTEROL SO4 0.083% IH SOL 2.5 MG/3 ML VIAL.NEB. NEB PRN (16:05)
[2023-07-31] MEDS: INSULIN ASPART SLIDING SCALE (NOVOLOG) 1 VIAL SQ SCH (17:20)
[2023-07-31] MEDS: ATORVASTATIN CA 40 MG TABLET (FP) PO SCH (21:43)
[2023-07-31] MEDS: GABAPENTIN 300 MG CAPSULE PO SCH (21:44)
[2023-07-31] MEDS: CARVEDILOL 3.125 MG TABLET (FP) PO SCH (21:44)
[2023-07-31] MEDS: SENNOSIDES 8.6MG TABLET (FP) PO SCH (21:44)
[2023-08-01] MEDS: glipiZIDE-XL 10 MG TAB.ER.24 (FP) PO SCH (06:19)
[2023-08-01] MEDS: GABAPENTIN 300 MG CAPSULE PO SCH ×3 (06:19→21:26)
[2023-08-01] MEDS: metFORMIN HCL 500 MG TABLET (FP) PO SCH ×2 (06:19→18:17)
[2023-08-01] MEDS: INSULIN ASPART SLIDING SCALE (NOVOLOG) 1 VIAL SQ SCH ×3 (06:20→18:17)
[2023-08-01] MEDS: LEVOTHYROXINE 100 MCG, LEVOTHYROXINE 75 MCG PO SCH (06:21)
[2023-08-01] MEDS ORDERED: PATIENT'S OWN MEDICATION (NON-FORMULARY) (Levothyroxine Sodium [Levothyroxine Sodium] 175 PO SCH (10:00)
[2023-08-01] MEDS: ASPIRIN COATED 81 MG TABLET.EC PO SCH (10:32)
[2023-08-01] MEDS: RAMIPRIL 2.5 MG CAPSULE PO SCH (10:32)
[2023-08-01] MEDS: FUROSEMIDE 40 MG TABLET (FP) PO SCH (10:32)
[2023-08-01] MEDS: MEMANTINE HCL 5 MG TABLET (UD) PO SCH ×2 (10:32→21:26)
[2023-08-01] MEDS: CARVEDILOL 3.125 MG TABLET (FP) PO SCH ×2 (10:32→21:26)
[2023-08-01] MEDS: FLUTICASONE/UMECLIDIN/VILANTER(200-62.5-25 TRELEGY ELLIPTA) INAHLER IH SCH (15:37)
[2023-08-01] MEDS ORDERED: FUROSEMIDE 40 MG/4 ML INJECTABLE VIAL IVPUSH ONE (18:57)
[2023-08-01] MEDS ORDERED: MAGNESIUM SULF 50% (8.12 MEQ/2 ML-1 GM VIAL) IVPB ONE ×2 (19:01→22:00)
[2023-08-01 19:41] LABS: POTASSIUM 3.6 mmol/L (3.5-5.1)
[2023-08-01 19:43] LABS: CALCIUM 8.1 mg/dL (8.5-10.1)
[2023-08-01 19:44] LABS: ALBUMIN 2.6 g/dl (3.4-5.0); BLOOD UREA NITROGEN 9.3 mg/dL (7-18)
[2023-08-01 19:47] LABS: CREATININE 0.8 mg/dL (0.55-1.3); PHOSPHOROUS 3.8 mg/dL (2.5-4.9)
[2023-08-01 19:48] LABS: BILIRUBIN,TOTAL 0.8 mg/dL (0.2-1)
[2023-08-01] MEDS: MONTELUKAST NA 10 MG TABLET PO SCH (21:26)
[2023-08-01] MEDS: ATORVASTATIN CA 40 MG TABLET (FP) PO SCH (21:26)
[2023-08-01] MEDS: SENNOSIDES 8.6MG TABLET (FP) PO SCH (21:27)
[2023-08-02] MEDS: guaiFENesin/D-METHORPHAN HB 10 ML UNIT-DOSE CUPS PO PRN (04:30)
[2023-08-02] MEDS: metFORMIN HCL 500 MG TABLET (FP) PO SCH ×2 (06:31→16:23)
[2023-08-02] MEDS: GABAPENTIN 300 MG CAPSULE PO SCH ×3 (06:31→21:16)
[2023-08-02] MEDS: glipiZIDE-XL 10 MG TAB.ER.24 (FP) PO SCH (06:32)
[2023-08-02] MEDS: INSULIN ASPART SLIDING SCALE (NOVOLOG) 1 VIAL SQ SCH ×3 (06:32→16:43)
[2023-08-02] MEDS: LEVOTHYROXINE 100 MCG, LEVOTHYROXINE 75 MCG PO SCH (06:32)
[2023-08-02] MEDS: MEMANTINE HCL 5 MG TABLET (UD) PO SCH ×2 (10:55→21:16)
[2023-08-02] MEDS: ASPIRIN COATED 81 MG TABLET.EC PO SCH (10:55)
[2023-08-02] MEDS: FUROSEMIDE 40 MG TABLET (FP) PO SCH (10:55)
[2023-08-02] MEDS: FLUTICASONE/UMECLIDIN/VILANTER(200-62.5-25 TRELEGY ELLIPTA) INAHLER IH SCH (10:55)
[2023-08-02] MEDS: CARVEDILOL 3.125 MG TABLET (FP) PO SCH ×2 (10:55→21:16)
[2023-08-02] MEDS: RAMIPRIL 2.5 MG CAPSULE PO SCH (12:54)
[2023-08-02] MEDS: SENNOSIDES 8.6MG TABLET (FP) PO SCH (21:15)
[2023-08-02] MEDS: MONTELUKAST NA 10 MG TABLET PO SCH (21:16)
[2023-08-02] MEDS: ATORVASTATIN CA 40 MG TABLET (FP) PO SCH (21:16)
[2023-08-03] MEDS: ACETAMINOPHEN 325 MG TABLET (FP) PO PRN (01:02)
[2023-08-03] MEDS: GABAPENTIN 300 MG CAPSULE PO SCH ×3 (05:52→21:31)
[2023-08-03] MEDS: metFORMIN HCL 500 MG TABLET (FP) PO SCH ×2 (06:23→16:42)
[2023-08-03] MEDS: glipiZIDE-XL 10 MG TAB.ER.24 (FP) PO SCH (06:23)
[2023-08-03] MEDS: LEVOTHYROXINE 100 MCG, LEVOTHYROXINE 75 MCG PO SCH (06:23)
[2023-08-03] MEDS: INSULIN ASPART SLIDING SCALE (NOVOLOG) 1 VIAL SQ SCH ×3 (06:24→16:43)
[2023-08-03] MEDS: ASPIRIN COATED 81 MG TABLET.EC PO SCH (10:02)
[2023-08-03] MEDS: RAMIPRIL 2.5 MG CAPSULE PO SCH (10:03)
[2023-08-03] MEDS: FLUTICASONE/UMECLIDIN/VILANTER(200-62.5-25 TRELEGY ELLIPTA) INAHLER IH SCH (10:03)
[2023-08-03] MEDS: MEMANTINE HCL 5 MG TABLET (UD) PO SCH ×2 (10:09→21:31)
[2023-08-03 10:20] LABS: POTASSIUM 3.5 mmol/L (3.5-5.1)
[2023-08-03 10:31] LABS: BLOOD UREA NITROGEN 13.7 mg/dL (7-18); CALCIUM 8.1 mg/dL (8.5-10.1)
[2023-08-03 10:34] LABS: CREATININE 0.6 mg/dL (0.55-1.3)
[2023-08-03] MEDS: CARVEDILOL 3.125 MG TABLET (FP) PO SCH ×2 (11:09→21:31)
[2023-08-03] MEDS: FUROSEMIDE 40 MG TABLET (FP) PO SCH (11:10)
[2023-08-03] MEDS: MONTELUKAST NA 10 MG TABLET PO SCH (21:31)
[2023-08-03] MEDS: SENNOSIDES 8.6MG TABLET (FP) PO SCH (21:31)
[2023-08-03] MEDS: ATORVASTATIN CA 40 MG TABLET (FP) PO SCH (21:31)
[2023-08-04] MEDS: LEVOTHYROXINE 100 MCG, LEVOTHYROXINE 75 MCG PO SCH (06:10)
[2023-08-04] MEDS: INSULIN ASPART SLIDING SCALE (NOVOLOG) 1 VIAL SQ SCH ×3 (06:11→17:45)
[2023-08-04] MEDS: metFORMIN HCL 500 MG TABLET (FP) PO SCH ×2 (06:11→17:45)
[2023-08-04] MEDS: GABAPENTIN 300 MG CAPSULE PO SCH ×2 (06:11→14:21)
[2023-08-04] MEDS: guaiFENesin/D-METHORPHAN HB 10 ML UNIT-DOSE CUPS PO PRN ×2 (06:15→14:21)
[2023-08-04] MEDS: glipiZIDE-XL 10 MG TAB.ER.24 (FP) PO SCH (06:15)
[2023-08-04] MEDS ORDERED: BENZONATATE 200 MG CAPSULE PO PRN (09:11)
[2023-08-04] MEDS ORDERED: predniSONE 20 MG TABLET (UD) PO ONE (09:11)
[2023-08-04] MEDS ORDERED: LIDOCAINE 4% PATCH TP SCH (10:00)
[2023-08-04] MEDS: MEMANTINE HCL 5 MG TABLET (UD) PO SCH (10:23)
[2023-08-04] MEDS: ASPIRIN COATED 81 MG TABLET.EC PO SCH (10:23)
[2023-08-04] MEDS: CARVEDILOL 3.125 MG TABLET (FP) PO SCH (10:23)
[2023-08-04] MEDS: FUROSEMIDE 40 MG TABLET (FP) PO SCH (10:23)
[2023-08-04] MEDS: FLUTICASONE/UMECLIDIN/VILANTER(200-62.5-25 TRELEGY ELLIPTA) INAHLER IH SCH (10:24)
[2023-08-04] MEDS: RAMIPRIL 2.5 MG CAPSULE PO SCH (10:24)
[2023-08-04 11:30] LABS: POTASSIUM 4.1 mmol/L (3.5-5.1)
[2023-08-04 11:32] LABS: BLOOD UREA NITROGEN 11.8 mg/dL (7-18); CALCIUM 8.2 mg/dL (8.5-10.1)
[2023-08-04 11:35] LABS: CREATININE 0.7 mg/dL (0.55-1.3)
[2023-08-04] MEDS: ACETAMINOPHEN 325 MG TABLET (FP) PO PRN (12:49)
[2023-08-04 18:38] VITALS: BP 108/67; PULSE 73; RESP 20; TEMP 97.9
[2023-08-04] MEDS ORDERED: LIDOCAINE PATCH REMOVAL MC SCH (22:00)
== END 2023-08-04 19:27 | DRG 291 ==
LOC: JER 11:52 → JERBED 15:13 → J4S 20:38 → OBSVTOIN 08-01 11:49
PROVIDERS: ADMIT Internal Medicine; ATTEND Internal Medicine
DX: I11.0 Hypertensive heart disease with heart failure (principal); I50.33 Acute on chronic diastolic (congestive) heart failure; J84.9 Interstitial pulmonary disease, unspecified; I25.10 Atherosclerotic heart disease of native coronary artery without angina pectoris; J44.9 Chronic obstructive pulmonary disease, unspecified; Z99.81 Dependence on supplemental oxygen; R94.31 Abnormal electrocardiogram [ECG] [EKG]; E11.42 Type 2 diabetes mellitus with diabetic polyneuropathy; G47.33 Obstructive sleep apnea (adult) (pediatric); E03.9 Hypothyroidism, unspecified; F03.90 Unspecified dementia, unspecified severity, without behavioral disturbance, psychotic disturbance, mood disturbance, and anxiety; E78.5 Hyperlipidemia, unspecified; M94.0 Chondrocostal junction syndrome [Tietze]
CPT/HCPCS: 0241U-QW; 36415; 70450-TC; 71045-TC-FY; 72125-TC; 80048; 80053; 81003; 82550; 82803; 82962; 83605; 83735; 83880; 84100; 84484; 85025; 85610; 85730; 87086; 93005; 93010; 97116-GP; 97161-GP; 99285-25; G0378

== ENCOUNTER 2023-10-12 14:11 | Inpatient (IN) | payer OTHER ==
[2023-10-12 14:19] VITALS: BMI 29.5
[2023-10-12] MEDS: ALBUTEROL SO4 2.5/IPRATROPIUM 0.5 INH SOL 3 ML VIAL.NEB. NEB SCH (15:15)
[2023-10-12 15:16] LABS: VENOUS BASE EXCESS -0.9 mmol/L (-2-2); VENOUS O2 SATURATION 78.8 % (70-80); VENOUS PCO2 44.1 mmHg (38-52); VENOUS PH 7.365 (7.310-7.410)
[2023-10-12] MEDS ORDERED: ALBUTEROL SO4 2.5/IPRATROPIUM 0.5 INH SOL 3 ML VIAL.NEB. NEB ONE (15:23)
[2023-10-12 15:47] LABS: BASO % 0.5 % (0-2.0); EOS % 1.5 % (0-4.5); HEMATOCRIT 34.6 % (32.4-45.2); HEMOGLOBIN 10.7 GM/dL (10.7-15.3); MCH 22.1 pg (25.7-33.7); MCHC 30.8 g/dl (32.0-36.0); MEAN CELL VOLUME 71.6 fl (80-96); MEAN PLT VOLUME 8.9 fl (7.5-11.1); MONO % 7.8 % (3.8-10.2); NEUT % 72.2 % (42.8-82.8); PLATELET COUNT 229 10^3/uL (134-434); RBC 4.83 M/mm3 (3.60-5.2); RDW 18.9 % (11.6-15.6); WHITE BLOOD COUNT 10.6 K/mm3 (4.0-10.0)
[2023-10-12 15:54] LABS: INR 1.37 (0.83-1.09); PROTHROMBIN TIME (PATIENT) 15.8 SEC (9.7-13.0)
[2023-10-12 15:55] LABS: ACTIVATED PTT 31.2 SECONDS (25.2-36.5)
[2023-10-12 16:03] LABS: LACTIC ACID 2.2 mmol/L (0.4-2.0); POTASSIUM 4.4 mmol/L (3.5-5.1)
[2023-10-12 16:05] LABS: ALBUMIN 2.7 g/dl (3.4-5.0); CALCIUM 7.8 mg/dL (8.5-10.1)
[2023-10-12 16:08] LABS: CREATININE 0.9 mg/dL (0.55-1.3)
[2023-10-12 16:10] LABS: BILIRUBIN,TOTAL 1.2 mg/dL (0.2-1); TOT PROT 7.1 g/dl (6.4-8.2)
[2023-10-12] MEDS ORDERED: FUROSEMIDE 40 MG/4 ML INJECTABLE VIAL ONE (17:05)
[2023-10-12] MEDS ORDERED: methylPREDNISolone NA SUCC 125 MG/2 ML VIAL ONE (17:05)
[2023-10-12] MEDS ORDERED: AZITHROMYCIN IVPB 500 MG/250 ML BAG IVPB ONE (17:06)
[2023-10-12] MEDS: methylPREDNISolone NA SUCC 125 MG/2 ML VIAL IVPUSH ONE (17:40)
[2023-10-12] MEDS: FUROSEMIDE 40 MG/4 ML INJECTABLE VIAL IVPUSH ONE (17:42)
[2023-10-12] MEDS: AZITHROMYCIN IVPB 500 MG in DEXTROSE 5%-WATER - 250 ML IVPB ONE (17:45)
[2023-10-12 22:10] LABS: POTASSIUM 3.9 mmol/L (3.5-5.1)
[2023-10-12 22:12] LABS: BLOOD UREA NITROGEN 18.5 mg/dL (7-18)
[2023-10-12 22:15] LABS: CREATININE 0.9 mg/dL (0.55-1.3)
[2023-10-12 22:17] LABS: BILIRUBIN,TOTAL 1.2 mg/dL (0.2-1); TOT PROT 7.4 g/dl (6.4-8.2)
[2023-10-12] MEDS: SENNOSIDES 8.6MG TABLET (FP) PO SCH (22:28)
[2023-10-12] MEDS: CARVEDILOL 3.125 MG TABLET (FP) PO SCH (22:29)
[2023-10-12] MEDS: ATORVASTATIN CA 40 MG TABLET (FP) PO SCH (22:29)
[2023-10-12 22:42] LABS: BASO % 0.1 % (0-2.0); EOS % 0.2 % (0-4.5); HEMATOCRIT 35.4 % (32.4-45.2); HEMOGLOBIN 10.8 GM/dL (10.7-15.3); LYMPH % 4.9 % (8-40); MCH 21.7 pg (25.7-33.7); MCHC 30.6 g/dl (32.0-36.0); MEAN PLT VOLUME 9.1 fl (7.5-11.1); MONO % 0.9 % (3.8-10.2); NEUT % 93.9 % (42.8-82.8); PLATELET COUNT 223 10^3/uL (134-434); RBC 4.99 M/mm3 (3.60-5.2); RDW 18.8 % (11.6-15.6); WHITE BLOOD COUNT 10.1 K/mm3 (4.0-10.0)
[2023-10-12] MEDS: LIDOCAINE PATCH REMOVAL MC SCH (22:43)
[2023-10-12 22:53] LABS: ANISOCYTOSIS 3+; MACROCYTOSIS 0; TARGET CELLS 1+
[2023-10-13] MEDS: LEVOTHYROXINE 100 MCG, LEVOTHYROXINE 75 MCG PO SCH (06:21)
[2023-10-13] MEDS: FUROSEMIDE 40 MG/4 ML INJECTABLE VIAL IVPUSH ONE (06:26)
[2023-10-13 08:56] LABS: MAGNESIUM 1.1 mg/dL (1.8-2.4)
[2023-10-13] MEDS ORDERED: PATIENT'S OWN MEDICATION (NON-FORMULARY) (Levothyroxine Sodium [Levothyroxine Sodium] 175 PO SCH (10:00)
[2023-10-13] MEDS ORDERED: ENOXAPARIN NA (PORCINE) 40 MG/0.4 ML DISP.SYRIN SQ SCH (10:00)
[2023-10-13] MEDS: MEMANTINE HCL 5 MG TABLET (UD) PO SCH (10:00)
[2023-10-13] MEDS: MONTELUKAST NA 10 MG TABLET PO SCH (10:00)
[2023-10-13] MEDS: AZITHROMYCIN IVPB 500 MG/250 ML BAG IVPB SCH (10:00)
[2023-10-13] MEDS: LIDOCAINE 4% PATCH TP SCH (10:00)
[2023-10-13] MEDS: ASPIRIN COATED 81 MG TABLET.EC PO SCH (10:00)
[2023-10-13] MEDS: FLUTICASONE/UMECLIDIN/VILANTER(200-62.5-25 TRELEGY ELLIPTA) INAHLER IH SCH (10:01)
[2023-10-13] MEDS ORDERED: SODIUM CHLORIDE NASAL SPRAY 44 ML BOTTLE NS PRN (12:41)
[2023-10-13 15:20] LABS: EPI CELLS 35 /uL (0-25.1); HYALINE CASTS 0 /uL (0-3.1); URINE APPEARANCE CLEAR; URINE BACTERIA 234 /uL (0-1359); URINE BILIRUBIN NEGATIVE (NEGATIVE); URINE COLOR YELLOW; URINE GLUCOSE (UA) NEGATIVE (NEGATIVE); URINE KETONE NEGATIVE (NEGATIVE); URINE LEUK ESTERASE TRACE (NEGATIVE); URINE NITRITE NEGATIVE (NEGATIVE); URINE PROTEIN NEGATIVE (NEGATIVE); URINE RBC 12 /uL (0-23.9); URINE WBC 17 /uL (0-25.8)
[2023-10-13] MEDS: HEPARIN NA (PORCINE) 5,000 UNITS/ML 1ML VIAL SQ SCH (16:35)
[2023-10-14 09:56] LABS: POTASSIUM 3.9 mmol/L (3.5-5.1)
[2023-10-14 09:58] LABS: CALCIUM 8.6 mg/dL (8.5-10.1)
[2023-10-14 09:59] LABS: ALBUMIN 3.1 g/dl (3.4-5.0); BLOOD UREA NITROGEN 21.5 mg/dL (7-18)
[2023-10-14 10:00] LABS: BASO % 0.3 % (0-2.0); EOS % 0.3 % (0-4.5); HEMOGLOBIN 10.3 GM/dL (10.7-15.3); MCH 21.8 pg (25.7-33.7); MCHC 31.2 g/dl (32.0-36.0); MEAN PLT VOLUME 9.2 fl (7.5-11.1); MONO % 7.7 % (3.8-10.2); NEUT % 78.7 % (42.8-82.8); PLATELET COUNT 228 10^3/uL (134-434); RBC 4.72 M/mm3 (3.60-5.2); RDW 19.1 % (11.6-15.6); WHITE BLOOD COUNT 12.6 K/mm3 (4.0-10.0)
[2023-10-14 10:02] LABS: CREATININE 0.8 mg/dL (0.55-1.3)
[2023-10-14 10:03] LABS: BILIRUBIN,TOTAL 1.2 mg/dL (0.2-1); TOT PROT 7.2 g/dl (6.4-8.2)
[2023-10-14] MEDS: ACETAMINOPHEN 325 MG TABLET (FP) PO PRN (10:21)
[2023-10-15] MEDS: FUROSEMIDE 40 MG TABLET (FP) PO SCH (12:33)
[2023-10-16] MEDS: LOSARTAN POTASSIUM 25 MG TABLET PO SCH (10:17)
[2023-10-17] MEDS: guaiFENesin/CODEINE 5 ML UNIT-DOSE CUPS PO PRN (19:58)
[2023-10-19] MEDS ORDERED: LEVOTHYROXINE NA 75 MCG TABLET (FP) ONE (05:58)
[2023-10-20 08:01] LABS: POTASSIUM 3.8 mmol/L (3.5-5.1)
[2023-10-20 08:10] LABS: CALCIUM 8.8 mg/dL (8.5-10.1)
[2023-10-20 08:11] LABS: ALBUMIN 2.9 g/dl (3.4-5.0)
[2023-10-20 08:14] LABS: CREATININE 0.7 mg/dL (0.55-1.3)
[2023-10-20 08:15] LABS: BILIRUBIN,TOTAL 1.5 mg/dL (0.2-1); TOT PROT 6.8 g/dl (6.4-8.2)
[2023-10-20 08:52] LABS: BASO % 0.5 % (0-2.0); HEMATOCRIT 34.2 % (32.4-45.2); HEMOGLOBIN 10.1 GM/dL (10.7-15.3); LYMPH % 18.1 % (8-40); MCH 21.4 pg (25.7-33.7); MCHC 29.5 g/dl (32.0-36.0); MEAN CELL VOLUME 72.6 fl (80-96); MEAN PLT VOLUME 8.7 fl (7.5-11.1); MONO % 10.6 % (3.8-10.2); NEUT % 68.8 % (42.8-82.8); PLATELET COUNT 203 10^3/uL (134-434); RBC 4.71 M/mm3 (3.60-5.2); RDW 18.6 % (11.6-15.6); WHITE BLOOD COUNT 6.6 K/mm3 (4.0-10.0)
[2023-10-20 09:57] LABS: ANISOCYTOSIS 1+; MACROCYTOSIS 0; OVALOCYTE 1+
[2023-10-20] MEDS ORDERED: guaiFENesin 200 MG/10 ML 10 ML UNIT-DOSE CUPS PO PRN (15:47)
[2023-10-20] MEDS: HEPARIN NA (PORCINE) 5,000 UNITS/ML 1ML VIAL SQ SCH (21:59)
[2023-10-20] MEDS: guaiFENesin/CODEINE 10 ML UNIT-DOSE CUPS PO PRN (21:59)
[2023-10-21 06:17] VITALS: RESP 18
[2023-10-21] MEDS ORDERED: PHENOL 177 ML SPRAY BOTTLE MM PRN (12:00)
[2023-10-22 13:18] VITALS: BP 110/46; PULSE 67; TEMP 98.4
== END 2023-10-22 15:12 | disposition home or self-care (01) | DRG 190 ==
LOC: JER 14:11 → JERBED 16:41 → J4S 21:02
PROVIDERS: ADMIT Internal Medicine; ATTEND Internal Medicine
DX: J44.1 Chronic obstructive pulmonary disease with (acute) exacerbation (principal); I50.33 Acute on chronic diastolic (congestive) heart failure; J96.11 Chronic respiratory failure with hypoxia; I24.89 Other forms of acute ischemic heart disease; J84.9 Interstitial pulmonary disease, unspecified; J96.12 Chronic respiratory failure with hypercapnia; I11.0 Hypertensive heart disease with heart failure; E78.00 Pure hypercholesterolemia, unspecified; E03.9 Hypothyroidism, unspecified; I25.10 Atherosclerotic heart disease of native coronary artery without angina pectoris; D64.9 Anemia, unspecified; I27.20 Pulmonary hypertension, unspecified; I27.81 Cor pulmonale (chronic); R60.0 Localized edema; E11.40 Type 2 diabetes mellitus with diabetic neuropathy, unspecified; I48.91 Unspecified atrial fibrillation; F03.90 Unspecified dementia, unspecified severity, without behavioral disturbance, psychotic disturbance, mood disturbance, and anxiety; Z95.5 Presence of coronary angioplasty implant and graft; Z85.3 Personal history of malignant neoplasm of breast; Z99.81 Dependence on supplemental oxygen
CPT/HCPCS: 0241U-QW; 36415; 71045-TC-FY; 74230-TC-FY; 80053; 80061; 81003; 82803; 82962; 83036; 83605; 83735; 83880; 84443; 84484; 85025; 85610; 85730; 87040; 87086; 92611-GN; 93005; 93010; 93306-TC; 99285-25; J1644